=== PATIENT | male | born 1945 | race Caucasian/White ===

== ENCOUNTER 2018-07-10 05:12 | Day surgery (SDC) | payer MEDICARE, OTHER, SELFPAY ==
[2018-07-10 05:39] VITALS: BP 131/70; PULSE 63; RESP 18; TEMP 36.3; O2SAT 100; BMI 21.7
--- NOTE | 2018-07-10 06:30 | COLBX_PTH ---
PATIENT: JODIE AMAYA LOC: [facility] U#:[id number] AGE/SX: 72/M ROOM: RE07/10/[address]: Dr. Karel Morton MD : 1945 BED: DIS: 07/10/2018 SPEC #: [id number] RECD: 07/10/18 09:01 STATUS: RICHARD KATRIN #: [id number] YVETTE: 07/10/18 06:[address]: Karel Morton DEPT: SURGICAL PATHOLOGY RECD BY: Daquan Quintanilla ENTERED: 07/10/18 11:05 SP TYPE: COLON BX CARRIE DR: Dr. Brendan Morton III, MD Tissues: COLON BIOPSY Procedures: Surgery Specimen Level IV HEADER OPERATION: Colonoscopy (MAC) PRE-OP DIAGNOSIS: Diarrhea TISSUE SUBMITTED: Random colon biopsies MICROSCOPIC DIAGNOSIS Random biopsy: No pathologic diagnosis. AM:patricio 07/11/18 MICROSCOPIC DESCRIPTION Slides are reviewed. GROSS DESCRIPTION Received is one container labeled with the patient name and designated random colon biopsy. The specimen consists of multiple irregular fragments of light mejia soft tissue that in aggregate measure 1.5 x 0.8 x 0.1 cm. The specimen is totally submitted in one cassette. / SJ:sp 07/10/18 TC: 5 CPT: 17384
[2018-07-10 06:52] VITALS: BP 128/74; BP 131/70; PULSE 61; RESP 16; TEMP 36.1; O2SAT 97
--- NOTE | 2018-07-10 06:55 | OP.ENDO_ITS ---
Patient Name: Arnaud Cardenas Procedure Date: 07/10/2018 6:08 AM Date of : 1945 Age: 72 Procedure: Colonoscopy Indications: Screening for colorectal malignant neoplasm Providers: Karel Morton MD Referring MD: Karel Morton MD Medicines: See the Anesthesia note for documentation of the administered medications Patient Profile: Last Colonoscopy: September 2007. Complications: No immediate complications. Procedure: Pre-Anesthesia Assessment: - Prior to the procedure, a History and Physical was performed, and patient medications and allergies were reviewed. The patient's tolerance of previous anesthesia was also reviewed. The risks and benefits of the procedure and the sedation options and risks were discussed with the patient. All questions were answered, and informed consent was obtained. Prior Anticoagulants: The patient has taken Coumadin (warfarin), last dose was day of procedure. ASA Grade Assessment: II - A patient with mild systemic disease. After reviewing the risks and benefits, the patient was deemed in satisfactory condition to undergo the procedure. After I obtained informed consent, the scope was passed under direct vision. Throughout the procedure, the patient's blood pressure, pulse, and oxygen saturations were monitored continuously. The colonoscope was introduced through the anus and advanced to the cecum, identified by appendiceal orifice and ileocecal valve. The colonoscopy was performed without difficulty. The patient tolerated the procedure well. The quality of the bowel preparation was good. The ileocecal valve was photographed. Scope In: 6:34:09 AM Scope Withdrawal Time 0 hours 7 minutes 31 seconds Scope Out: 6:49:14 AM Total Procedure Duration Time 0 hours 15 minutes 5 seconds Findings: Lax anal tone Multiple large-mouthed diverticula were found in the entire colon. Biopsies for histology were taken with a cold forceps from the entire colon for evaluation of microscopic colitis. The exam was otherwise without abnormality. Impression: - Diverticulosis in the entire examined colon. Biopsied. - The examination was otherwise normal. Recommendation: - Discharge patient to home. - Resume previous diet. - Continue present medications. - Telephone my office for pathology results in 1 week. - Repeat colonoscopy in 10 years for screening purposes. Procedure Code(s): --- Professional --- 34519, Colonoscopy, flexible; with biopsy, single or multiple Diagnosis Code(s): --- Professional --- Z12.11, Encounter for screening for malignant neoplasm of colon K57.30, Diverticulosis of large intestine without perforation or abscess without bleeding CPT copyright 2017 [employer]. All rights reserved. The codes documented in this report are preliminary and upon certified coder review may be revised to meet current compliance requirements. Karel Morton MD 07/10/2018 6:54:59 AM This report has been signed electronically. Number of Addenda: 0 Note Initiated On: 07/10/2018 6:08 AM
[2018-07-10 06:57] VITALS: BP 123/67; BP 131/70; PULSE 63; RESP 16; O2SAT 97
[2018-07-10 07:02] VITALS: BP 131/70; BP 133/72; PULSE 60; RESP 18; O2SAT 97
[2018-07-10 07:07] VITALS: BP 121/81; BP 131/70; PULSE 64; RESP 16; O2SAT 99
[2018-07-10 07:24] VITALS: BP 131/70
== END 2018-07-10 07:41 | disposition home or self-care (01) ==
LOC: EN 05:12 → AC 05:15
PROVIDERS: Family Provider Family Medicine; PCP Family Medicine; Referring Provider Surgery; Visit Provider Surgery
PROC: 0DJD8ZZ Inspection of Lower Intestinal Tract, Via Natural or Artificial Opening Endoscopic (ICD-10-PCS; CPT 45378; principal; 2018-07-10 06:25)
DX: Z12.11 Encounter for screening for malignant neoplasm of colon (principal); K57.30 Diverticulosis of large intestine without perforation or abscess without bleeding; R19.7 Diarrhea, unspecified; I10 Essential (primary) hypertension; E11.9 Type 2 diabetes mellitus without complications; F03.90 Unspecified dementia, unspecified severity, without behavioral disturbance, psychotic disturbance, mood disturbance, and anxiety; Z79.84 Long term (current) use of oral hypoglycemic drugs; Z79.01 Long term (current) use of anticoagulants; Z79.899 Other long term (current) drug therapy; Z87.891 Personal history of nicotine dependence
CPT/HCPCS: 45380; 88305; J7120

== ENCOUNTER 2019-06-01 11:31 | Emergency (ER) | payer MEDICARE, OTHER, SELFPAY ==
[2019-06-01 11:32] VITALS: BP 121/70; PULSE 74; RESP 18; TEMP 36.6; O2SAT 100; BMI 22.6
--- NOTE | 2019-06-01 11:59 | CT_ITS ---
STUDY: CT ABDOMEN AND PELVIS WITHOUT CONTRAST REASON FOR EXAM: Male, 73 years old. Left lower quadrant pain RADIATION DOSAGE (If Supplied By Facility): CTDIvol = ( 7.04 ) mGy, DLP = ( 380.13 ) mGycm TECHNIQUE: Transaxial images were obtained from the dome of the diaphragm to the symphysis pubis without oral contrast, and without intravenous contrast. Sagittal and coronal images were reconstructed. Individualized dose optimization techniques were used for this CT. COMPARISON: 10/29/2014 FINDINGS: The visualized lung bases are unremarkable. The visualized portions of the heart are within normal limits. Normal liver. Normal gallbladder and extrahepatic biliary system. Normal spleen. Normal pancreas. Normal bilateral adrenal glands. There are simple cysts of the left kidney, grossly similar. No hydronephrosis or urinary tract calcifications. Normal visualized stomach. There are surgical clips adjacent to the GE junction. Normal small intestine. There is diverticulosis, with thickening of the distal descending colon wall, and pericolonic inflammation changes consistent with acute diverticulitis. There is non-visualization of the appendix. There is diffuse atherosclerotic calcification of the abdominal aorta, without a demonstrated aneurysm. Normal inferior vena cava. Normal retroperitoneum. Poorly evaluated, nondistended urinary bladder. There are prostatic calcifications. Normal abdominal wall. No lytic or sclerotic bone lesions. CT/Abdomen/Pelvis without Cont IMPRESSION: Distal descending colon acute diverticulitis without abscess or pneumoperitoneum. Electronically Signed: Justin Alfonso MD (Brooks) at 12:43 EDT , Service support ,
--- NOTE | 2019-06-01 11:59 | ED.DCSUM_ITS ---
- ER Visit Summary Date of Service: 06/01/19 Chief Complaint: Abdominal pain History of Present Illness: The patient is a 73-year-old male presents for evaluation of abdominal pain. Patient states symptoms began yesterday and are worse with walking and bending over. He describes it more as a dull ache. He notes a normal bowel movement this morning. No nausea or vomiting. He ate well this morning. No fevers. He has a history of diverticulosis is seen on a screening colonoscopy. He denies any blood in the stool. Physical Examination: Afebrile vital signs are stable Gen: Well-nourished well-developed Head: Normocephalic atraumatic Eyes: Perrl EOMI ENT: TMs clear no rhinorrhea moist mucous membranes Neck: Supple no lymphadenopathy no JVD nontender CVS: Regular rate rhythm no murmurs normal S1-S2 Respiratory: No distress clear to auscultation bilaterally chest nontender Abdomen: Soft tender palpation in the left lower quadrant with guarding. Nondistended normal bowel sounds no masses Back: Nontender Extremity: Nontender no edema Skin: Normal color no rash Neuro: alert orientated ?3 CN II-XII intact normal strength sensation Psych: Normal affect normal mood Test Results: CBC BMP and urinalysis were obtained. White count noted to be 11.7. A noncontrasted CT was obtained as he is on metformin and I am looking for diverticulitis did not feel contrast was necessarily needed. CT does demonstrate uncomplicated descending diverticulitis. Emergency Department Course and Treatment: Patient will be started on Cipro and Flagyl. He is asked for something for pain and I will write for some oxycodone. His potential side effects such as constipation and confusion but not limited to those. Return instructions given and he notes understanding. Impression: 1. Acute descending diverticulitis This note was generated with [employer] dictation software. It may contain incorrect words, spelling, and punctuation that were not noted in review of the chart prior to signing ED Disposition - Plan for ED Patient: Disposition: Home or Assisted Living Instructions: Understanding Diverticulosis and Diverticulitis Prescriptions: Ciprofloxacin [Cipro] 500 mg PO BID #14 tab [facility] metroNIDAZOLE [Flagyl] 500 mg PO Q8H #21 tab Transmission Status[facility] Oxycodone [Oxyir] 5 mg PO Q6H PRN PRN 3 Days #10 tablet PRN Reason: Pain Score 1-06/06 Transmission Status: Sent to [facility] Referrals: Brendan Morton III, MD [Primary Care Provider] - Keep Zackary appointment
[2019-06-01 12:05] LABS: White Blood Cells 0 SEEN /hpf (0-5)
[2019-06-01 12:07] LABS: Color, Urine Yellow (Yellow); Glucose, Dipstick 100 mg/dl (Normal); Ketone-Dipstick 5 mg/dl (Negative); Leukocyte Esterase-Dipstick Negative /ul (Negative); Nitrite-Dipstick Negative (Negative); Occult Blood-Urine 10 /ul (Negative); Protein-Dipstick 15 mg/dl (Negative); Specific Gravity, Urine 1.025 (1.002-1.030); Urine Bilirubin Dipstick Negative (Negative); Urine Clarity Sl. Cloudy (Clear); Urine Urobilinogen Normal (Normal)
[2019-06-01 12:13] LABS: Red Blood Cells-Urine 0-5 SEEN /hpf (0-5)
[2019-06-01 12:14] LABS: Bacteria RARE /hpf (None Seen); Mucous, Urine 2+ /hpf (<or=2+); Squamous Epithelial Cells - UA 0-5 SEEN /hpf (0-5)
[2019-06-01 12:34] LABS: Anion Gap 7 (5-15); BUN 23 mg/dL (7-18); BUN/Creat Ratio 21.7 RATIO (10-20); Calcium,Total 9.4 mg/dL (8.5-10.1); Chloride 104 mmol/L (98-107); Creatinine, Serum 1.06 mg/dL (0.70-1.30); EST Glomerular Filtration Rate 73 mL/min (>60); Est Glom Filt Rate - Afr Amer 88 mL/min (>60); Estimated Creatinine Clearance 63.86 ml/min; Glucose 109 mg/dL (74-106); Potassium 4.8 mmol/L (3.5-5.1); Sodium Level 140 mmol/L (136-145)
[2019-06-01 12:43] LABS: Absolute Lymphocyte Count 1.32 X10^3/uL (0.83-4.51); Absolute Neutrophil Count 8.5 X10^3/uL (2.0-7.7); Basophil# 0.06 X10^3/uL; Basophil% 0.5 % (0-1); Differential Indicated SCAN CRITERIA MET; Eosinophil# 0.18 X10^3/uL; Eosinophils% 1.5 % (0-5); Hematocrit 41.2 % (40-54); Hemoglobin 13.5 g/dL (13.0-16.5); Lymphocyte # 1.32 X10^3/ul (4.0); Lymphocyte % 11.3 % (19-41); Mean Corp Hgb Conc 32.8 g/dL (32-36); Mean Corpuscular Hgb 31.5 pg (27.0-32.0); Mean Corpuscular Volume 96.3 fL (80-94); Mean Platelet Vol. 11.4 fl (6.2-12.0); Monocyte# 1.52 X10^3/uL; NRBC Flagged by Analyzer 0 % (0-5); Neutrophil # 8.53 X10^3/uL (2.7-7.7); Neutrophil % 73.3 % (47-70); POSITIVE DIFFERENTIAL YES; Platelet Count 192 K/mm3 (150-450); RBC Distribution Width CV 12.8 % (11.6-14.6); RBC Distribution Width SD 45.1 fl (35.1-43.9); Red Blood Count 4.28 M/mm3 (4.6-6.2); White Blood Count 11.7 K/mm3 (4.4-11.0)
[2019-06-03 12:05] LABS: Pathologist Review Reviewed
== END 2019-06-01 13:14 | disposition home or self-care (01) ==
PROVIDERS: Emergency Provider Emergency Medicine; Family Provider Family Medicine; PCP Family Medicine
DX: K57.32 Diverticulitis of large intestine without perforation or abscess without bleeding (principal); I10 Essential (primary) hypertension; E11.9 Type 2 diabetes mellitus without complications; F03.90 Unspecified dementia, unspecified severity, without behavioral disturbance, psychotic disturbance, mood disturbance, and anxiety; Z79.84 Long term (current) use of oral hypoglycemic drugs; Z79.899 Other long term (current) drug therapy; Z87.891 Personal history of nicotine dependence
CPT/HCPCS: 74176; 80048; 81001; 85025; 99284; A4216

== ENCOUNTER 2019-08-26 09:47 | Inpatient (IN) | payer MEDICARE, OTHER, SELFPAY ==
[2019-08-26 09:47] VITALS: BP 164/87; PULSE 121; RESP 24; TEMP 36.9; O2SAT 97; BMI 23.3
--- NOTE | 2019-08-26 10:35 | ED.DCSUM_ITS ---
History of Present Illness Chief Complaint: Weakness Informant: Patient, Family Onset: Today Current Severity: Mild Maximum Severity: Mild Narrative: Patient presents with generalized weakness that started this morning. Family reports had a good day yesterday. He felt weak and shaky today and EMS was called. While riding in the squad patient did have one episode of emesis. He denies nausea currently. He denies chest or abdominal pain. - Past Medical History (1) Hypertension Status: Chronic (2) Diabetes mellitus type 2 in nonobese Status: Chronic Past Medical History - Allergies and Home Meds Allergies/Adverse Reactions: Allergies codeine Adverse Reaction (Verified 08/26/19 09:50) Nausea/Vom/Diarrhea Primary Care Physician: Brendan Morton III, MD [Primary Care Provider] - Prior records reviewed: Yes Surgical History: - - Surgeries for peptic ulcer disease Smoking Status: Former smoker - Family History Maternal Family History: Family History (Last Updated 06/26/18 @ 15:34 by Leah Iglesias) Father Hypertension Heart disease Family History: Reports: No pertinent history Review of Systems General: Denies: Chills, Fever Eyes: Denies: Visual changes - bilaterally ENT: Denies: Bilateral ear pain Cardiovascular: Denies: Chest pain, Palpitations Respiratory: Denies: Dyspnea, Cough Gastrointestinal: Reports: Nausea, Vomiting. Denies: Abdominal pain, Diarrhea Genitourinary: Denies: Dysuria Neurological: Reports: Weakness - Generalized weakness. Denies: Headache Physical Exam Vital Signs/Narrative: Vital Signs Temp Pulse Resp BP Pulse Ox 08/26/19 09:47 98.5 F 121 H 24 H 164/87 H 97 Inital Vital Signs reviewed: Yes General: Well nourished, Well developed Head: Normocephalic ENT: Dry mucous membranes Neck: Supple Cardiovascular: Regular rhythm, Tachycardia Respiratory: No distress, CTA bilaterally Abdomen: Soft, Nontender Extremities: Nontender Skin: Pallor Neurological: Alert, Oriented x3 Psychological: Normal affect Diagnostic/Tx/Re-eval Laboratory Results 08/26/19 08/26/19 08/26/19 10:05 10:05 11:50 WBC 9.0 RBC 4.17 L Hgb 13.2 Hct 40.5 MCV 97.1 H MCH 31.7 MCHC 32.6 RDW Std Deviation 44.5 H RDW Coeff of Christie 12.5 Plt Count 177 MPV 11.1 Immature Gran % (Auto) 0.400 Neut % (Auto) 89.2 H Lymph % (Auto) 6.4 L Gilchrist % (Auto) 3.4 Eos % (Auto) 0.4 Baso % (Auto) 0.2 Absolute Neuts (auto) 8.0 H Absolute Lymphs (auto) 0.57 L Nucleated RBC % 0 Differential Comment COMMENT Sodium 139 Potassium 4.5 Chloride 103 Carbon Dioxide 28.0 Anion Gap 8 BUN 24 H Creatinine 1.40 H Estim Creat Clear Calc 49.25 Est GFR (MDRD) Af Amer 64 Est GFR (MDRD) Non-Af 53 L BUN/Creatinine Ratio 17.1 Glucose 171 H Calcium 10.1 Troponin I < 0.015 Urine Color Yellow Urine Clarity Clear Urine pH 7.0 Ur Specific Dudley 1.010 Urine Protein 15 H Urine Glucose (UA) 100 H Urine Ketones 50 H Urine Occult Blood 10 H Urine Nitrite Negative Urine Bilirubin Negative Urine Urobilinogen Normal Ur Leukocyte Esterase Negative Urine RBC 0-5 SEEN Urine WBC 5-10 SEEN Ur Squamous Epith Cells 0-5 SEEN Urine Bacteria 1+ Urine Mucus 0 SEEN - Medical Decision Making Patient is given IV fluids here. Urine shows some white cells with 1+ bacteria, but no overwhelming signs of significant infection. Urine will be sent for culture. Patient does have acute elevation in his creatinine and he does appear dehydrated. Patient was given IV fluids here. When I went back to talk with patient and family about getting him IV fluids here, increasing fluids at home, and following up for repeat labs patient's family states that he was very weak and hardly able to get around at home. They do not feel comfortable taking him home. I will speak with hospitalist regarding admission. ED Disposition - Plan for ED Patient: Disposition: Acute Care Hospital [facility] Diagnosis: Generalized weakness, Acute renal insufficiency Referrals: Brendan Morton III, MD [Primary Care Provider] -
--- NOTE | 2019-08-26 10:35 | EKG12_ITS ---
Test Reason : WEAKNESS Blood Pressure : / mmHG Vent. Rate : 105 BPM Atrial Rate : 105 BPM P-R Int : 160 ms QRS Dur : 080 ms QT Int : 340 ms P-R-T Axes : 049 042 035 degrees QTc Int : 449 ms Sinus tachycardia Low voltage QRS Nonspecific T wave abnormality Abnormal ECG Confirmed by ANTONIO RAMIREZ, ALIZA ([id number]), visual effects editor TAMMY JENKINS ([id number]) on 08/29/2019 11:12:57 AM Referred By: Ella Sorto Confirmed By:ALIZA ALVAREZ MD
[2019-08-26 10:45] LABS: Absolute Lymphocyte Count 0.57 X10^3/uL (0.83-4.51); Basophil# 0.02 X10^3/uL; Basophil% 0.2 % (0-1); Eosinophil# 0.04 X10^3/uL; Eosinophils% 0.4 % (0-5); Hematocrit 40.5 % (40-54); Hemoglobin 13.2 g/dL (13.0-16.5); Lymphocyte # 0.57 X10^3/ul (4.0); Lymphocyte % 6.4 % (19-41); Mean Corp Hgb Conc 32.6 g/dL (32-36); Mean Corpuscular Hgb 31.7 pg (27.0-32.0); Mean Corpuscular Volume 97.1 fL (80-94); Mean Platelet Vol. 11.1 fl (6.2-12.0); Monocyte% 3.4 % (0-10); NRBC Flagged by Analyzer 0 % (0-5); Neutrophil # 7.98 X10^3/uL (2.7-7.7); Neutrophil % 89.2 % (47-70); POSITIVE DIFFERENTIAL YES; Platelet Count 177 K/mm3 (150-450); RBC Distribution Width CV 12.5 % (11.6-14.6); RBC Distribution Width SD 44.5 fl (35.1-43.9); Red Blood Count 4.17 M/mm3 (4.6-6.2)
[2019-08-26 10:50] LABS: Differential Indicated SCAN CRITERIA MET
[2019-08-26 11:00] LABS: Anion Gap 8 (5-15); BUN 24 mg/dL (7-18); BUN/Creat Ratio 17.1 RATIO (10-20); Calcium,Total 10.1 mg/dL (8.5-10.1); Chloride 103 mmol/L (98-107); EST Glomerular Filtration Rate 53 mL/min (>60); Est Glom Filt Rate - Afr Amer 64 mL/min (>60); Estimated Creatinine Clearance 49.25 ml/min; Glucose 171 mg/dL (74-106); Potassium 4.5 mmol/L (3.5-5.1); Sodium Level 139 mmol/L (136-145)
[2019-08-26 11:53] VITALS: BP 112/69; PULSE 90; RESP 18; O2SAT 94
[2019-08-26 11:58] LABS: Mucous, Urine 0 SEEN /hpf (<or=2+)
[2019-08-26 12:00] LABS: Color, Urine Yellow (Yellow); Glucose, Dipstick 100 mg/dl (Normal); Ketone-Dipstick 50 mg/dl (Negative); Leukocyte Esterase-Dipstick Negative /ul (Negative); Nitrite-Dipstick Negative (Negative); Occult Blood-Urine 10 /ul (Negative); Protein-Dipstick 15 mg/dl (Negative); Urine Bilirubin Dipstick Negative (Negative); Urine Clarity Clear (Clear); Urine Urobilinogen Normal (Normal)
[2019-08-26 12:10] LABS: Red Blood Cells-Urine 0-5 SEEN /hpf (0-5); Squamous Epithelial Cells - UA 0-5 SEEN /hpf (0-5)
[2019-08-26 12:11] LABS: Bacteria 1+ /hpf (None Seen); White Blood Cells 5-10 SEEN /hpf (0-5)
[2019-08-26 12:59] VITALS: BP 114/58; PULSE 89; RESP 14
[2019-08-26] MEDS: 0.9% Normal Saline 1,000 ML 150 ML IV (12:59)
--- NOTE | 2019-08-26 13:08 | PCM.HP.STD ---
Problem List (1) UTI (urinary tract infection) Status: Acute Qualifiers: Urinary tract infection type: site unspecified (2) PETER (acute kidney injury) Status: Acute (3) HLD (hyperlipidemia) Status: Chronic Qualifiers: Hyperlipidemia type: unspecified Qualified Code(s): E78.5 - Hyperlipidemia, unspecified (4) Diabetes mellitus, type II Status: Chronic Qualifiers: Diabetes mellitus retirement insulin use: without retirement use Diabetes mellitus complication status: with other specified complication Qualified Code(s): E11.69 - Type 2 diabetes mellitus with other specified complication (5) Parkinsons disease Status: Chronic (6) Parkinson's disease dementia Status: Chronic Qualifiers: Dementia behavioral disturbance: without behavioral disturbance Qualified Code(s): G20 - Parkinson's disease; F02.80 - Dementia in other diseases classified elsewhere without behavioral disturbance (7) Hypertension Status: Chronic Qualifiers: Hypertension type: essential hypertension Qualified Code(s): I10 - Essential (primary) hypertension History of Present Illness Date of Admission: 08/26/19 Chief Complaint: Weakness, N/V The patient is a 73 y/o M w/ PMHx: Diabetes mellitus type II, HTN, HLD, Parkinson's Disease, Anxiety and Depression who presents to the [facility] ED on 08/26/19 with history of feeling baseline normal the day prior but notably onset on day of ED presentation inclusive of fatigue, malaise, nausea with emesis x 1 with EMS, increased weakness, debility, unable to even get up off the couch. Patient denied any recent abdominal pain or discomfort. In the ED patient notes that he has had decreased appetite over the last 2 to 3 days but no nausea or emesis at that time. He denies any recent dysuria, frequency or suprapubic discomfort. Work-up in the ED included T 98.5, heart rate originally 121 with improvement 89, BP initially 164/87 with improvement to 114/58, respiratory rate 24 with improvement 14, 97% on room air, CBC with WBC 9, hemoglobin 13.2, platelet 177 with left shift, BMP with BUN/creatinine 24/1.40 with baseline creatinine 0.8-1, glucose 171, troponin less than 0.015, urinalysis with specific gravity 1.010, protein 15, glucose 100, ketones 50, occult blood 10, WBC 5-10 with 1+ bacteria. In the ED patient administered normal saline. Past Medical History Past Medical History (Chronic Problems): Chronic Problems HLD (hyperlipidemia) (Chronic) Diabetes mellitus, type II (Chronic) Parkinsons disease (Chronic) Parkinson's disease dementia (Chronic) Diabetes mellitus type 2 in nonobese (Chronic) Hypertension (Chronic) Medical History: Medical History Diarrhea (Acute) R19.7 Diabetes mellitus type 2 in nonobese (Chronic) E11.9 Hypertension (Chronic) I10 Allergies codeine Adverse Reaction (Verified 08/26/19 09:50) Nausea/Vom/Diarrhea Home Medications: Ambulatory Orders Medication Instructions Recorded metFORMIN (XR) [Glucophage Xr] 1,000 mg PO BID 10/29/14 donepezil 10 mg tablet 10 mg PO QHS 06/26/18 escitalopram oxalate 20 mg tablet 20 mg PO DAILY 06/26/18 Lisinopril 2.5 mg PO DAILY 06/01/19 Multivit-Mins/Iron/Folic/Lycop 1 ea PO DAILY 06/01/19 [Centrum Men's Tablet] Atorvastatin Calcium 10 mg PO QHS 08/26/19 Carbidopa/Levodopa [Carbidopa-Levo 1 tab PO BID 08/26/19 ER 25-100 Tab] Cholecalciferol (VIT D3) [Vitamin 1,000 unit PO DAILY 08/26/19 D] Surgical History: Surgical History (Last Updated 06/26/18 @ 15:34 by Leah Iglesias) s/p stomach surgery Surgical History: - - Surgeries for peptic ulcer disease. Psychiatric History: Anxiety, Depression Lives: Spouse/ Significant Other Smoking Status: Former smoker - Quit tobacco usage, specifically cigars approximately 10 to 15 years prior. Tobacco Use: Non-smoker Alcohol: None Drugs: None - *Family History Maternal Family History: Family History (Last Updated 06/26/18 @ 15:34 by Leah Iglesias) Father Hypertension Heart disease History Items: Dementia Paternal Family History: Family History (Last Updated 06/26/18 @ 15:34 by Leah Iglesias) Father Hypertension Heart disease History Items: Heart Disease, Hypertension Review of Systems Constitutional: Reports: Anorexia, Malaise, Weakness, Fatigue. Denies: Chills, Fever, Weight Change HEENT: Denies: Head Aches, Sinus Congestion, Sinus Drainage Cardiovascular: Denies: Chest Pain, Palpitations Respiratory: Denies: Cough, Shortness of breath at rest, Sputum production Gastrointestinal: Reports: Nausea, Vomiting. Denies: Abdominal Pain Genitourinary: Denies: Dysuria Musculoskeletal: Reports: Joint Pain. Denies: Joint Tenderness Skin: Denies: Rash, Wounds Neurological: Reports: Balance problems, Confusion. Denies: Focal weakness, Numbness, Tingling Psychiatric: Reports: Anxiety, Depression. Denies: Homicidal Ideations, Suicidal Ideations Hematologic/ Lymphatic: Denies: Easy Bruising, Easy Bleeding VTE Information - Inpt Only VTE Present on Admission: No VTE Mechan Device Prophylaxis: SCD's VTE Pharm Prophylaxis ordered?: Yes Patient Problems: Active and Suspected Problems Generalized weakness (Acute) Acute renal insufficiency (Acute) UTI (urinary tract infection) (Acute) PETER (acute kidney injury) (Acute) Subjective: Seated upright in ED bed, fatigued appearance, no acute distress, notes nausea has improved since initial ED presentation. Objective: Physical Examination: General: awake, alert, oriented x [address], year, recent events, does have underlying history of Parkinson's disease with dementia, remains cooperative, seated upright in bed in no apparent distress. Skin: Pale color, turgor, no icterus, cyanosis. HEENT: AT/NC, EOMI, PERRLA, dry MM, no carotid bruits or JVD noted. Lungs: CTA bilaterally, moderate effort, moderate decrease BL bases, no rales, ronchi or wheezing. Heart: Regular rate and rhythm; no gallop, rub audible. Abdomen: soft, NTTP, ND, mildly hyperactive BS, no HSM. Extremities: no cyanosis, clubbing, or edema. Neurological: patient awake, alert, oriented as noted; cognitive function appears baseline intact, does have underlying dementia; pupils equally reactive to light and accomodation; cranial nerves II-XII grossly normal, moving all 4 extremities, no focal deficits, strength severely global decrease secondary to acute presentation. Psychiatric: affect appears flat, fatigued, no acute evidence of depressive or anxiety feelings. - Physical Exam Vitals/I&O's: Vital Signs Temp Pulse Resp BP Pulse Ox 98.5 F 89 14 114/58 L 94 08/26/19 09:47 08/26/19 12:59 08/26/19 12:59 08/26/19 12:59 08/26/19 11:53 Oxygen Delivery Method Room Air Weight: 162 lb 11.218 oz Body Mass Index (BMI) 23.3 Intake and Output for Last 24 Hours 08/24/19 08/25/19 08/26/19 23:59 23:59 23:59 Intake Total 500 / 500 Balance 500 / 500 Laboratory Results 08/26/19 10:05: WBC 9.0, RBC 4.17 L, Hgb 13.2, Hct 40.5, MCV 97.1 H, MCH 31.7, MCHC 32.6, RDW Std Deviation 44.5 H, RDW Coeff of Christie 12.5, Plt Count 177, MPV 11.1, Immature Gran % (Auto) 0.400, Neut % (Auto) 89.2 H, Lymph % (Auto) 6.4 L, Flagler % (Auto) 3.4, Eos % (Auto) 0.4, Baso % (Auto) 0.2, Absolute Neuts (auto) 8.0 H, Absolute Lymphs (auto) 0.57 L, Nucleated RBC % 0, Differential Comment COMMENT 08/26/19 10:05: Sodium 139, Potassium 4.5, Chloride 103, Carbon Dioxide 28.0, Anion Gap 8, BUN 24 H, Creatinine 1.40 H, Estim Creat Clear Calc 49.25, Est GFR (MDRD) Af Amer 64, Est GFR (MDRD) Non-Af 53 L, BUN/Creatinine Ratio 17.1, Glucose 171 H, Calcium 10.1, Troponin I < 0.015 08/26/19 11:50: Urine Color Yellow, Urine Clarity Clear, Urine pH 7.0, Ur Specific Barton 1.010, Urine Protein 15 H, Urine Glucose (UA) 100 H, Urine Ketones 50 H, Urine Occult Blood 10 H, Urine Nitrite Negative, Urine Bilirubin Negative, Urine Urobilinogen Normal, Ur Leukocyte Esterase Negative, Urine RBC 0-5 SEEN, Urine WBC 5-10 SEEN, Ur Squamous Epith Cells 0-5 SEEN, Urine Bacteria 1+, Urine Mucus 0 SEEN Current Medications Sodium Chloride () 1,000 mls @ 150 mls/hr IV .[id number] JANY Last Admin: 08/26/19 12:59 Dose: 150 mls/hr Documented by: Assessment/Plan All Active Problems Generalized weakness (Acute) Acute renal insufficiency (Acute) UTI (urinary tract infection) (Acute) PETER (acute kidney injury) (Acute) Diarrhea (Acute) The patient is a 73 y/o M w/ PMHx: Diabetes mellitus type II, HTN, HLD, Parkinson's Disease, Anxiety and Depression, GERD w/ Hx Peptic Ulcer who presents to the [facility] ED on 08/26/19 with history of feeling baseline normal the day prior but notably onset on day of ED presentation inclusive of fatigue, malaise, nausea with emesis x 1 with EMS, increased weakness, debility, unable to even get up off the couch. 1. ? Acute Urinary Tract Infection versus Acute Viral Syndrome: Will admit to [facility] upon ED evaluation remarkable, pending UCx, continue IVFs, monitor I/Os, continue IV Rocephin w/ transition as able pending sensitivities and speciation. PT/OT/CM consulted for discharge planning. Will obtain respiratory viral panel as patient presentation may be secondary to acute viral illness as noted and if urine unremarkable will de-escalate off therapy. 2. Acute kidney injury: Secondary to acute presentation as noted above #1 with likely poor intake. Admission BUN/Cr 24/1.40, prior baseline creatinine noted to be 0.8 to maximum 1.0. Will hydrate, hold nephrotoxic medications and repeat chemistry in AM. 3. Anxiety and depression: Continue patient home escitalopram regimen. 4. Diabetes mellitus type II: Hold oral home regimen, clears to ADA diet as tolerated, accu checks w/ ISS. 5. Hypertension: Holding lisinopril given elevated creatinine above baseline, resume once clinically appropriate in interim PRN hydralazine. 6. Hyperlipidemia: Continue home statin regimen. 7. Parkinson's disease with dementia, unclear behavioral disturbance history: We will continue patient home Sinemet, donepezil regimen. Fall precautions, PT/OT/case management consultation for discharge planning. 8. DVT prophylaxis: SCDs, Lovenox. 9. CODE status: Patient's present, notes daughter healthcare power of civil litigation attorney, living will in place. Discussed CODE status at length including difference between FULL code, DNR-CCA and DNR-CC status. Following discussions about the differences in these status, requested full CODE STATUS. Advanced Care Planning Face to Face Time: 16 minutes. Code Visit Inpatient E&M: 53927 Init Hosp L3 Procedures: 62415 Advncd Care Plan 30 Min
--- NOTE | 2019-08-26 15:00 | CASEMGMT ---
RAJINDER SWENSON assessment: Face to Face with patient for initial transition planning/care coordination assessment. RAJINDER SWENSON introduced self and role at [facility], pt voices understanding and consents to assessment at this time. Pt is sitting up in bed in no distress at this time. Pt is A/Ox4 at this time and answers all questions appropriately at this time. Pt's is at bedside and answers most questions for pt at this time. Care providers, pharmacy, and demographics verified/updated at this time. Presentation: Pt c/o increased weakness today, pt with emesis in squad Admitting dx: UTI, PETER PCP: Selene PEREZ Specialists: Deshaun Bueno, neuro at [facility] Preferred Pharmacy: [facility] Insurance: [facility] A/B, MMO Prescription Benefit: [employer] Living Will/HPOA: Pt has LW/HPOA and they are on file at [facility] at this time. Pt states that his niece, Meg Barraza, is HPOA and her contact info is placed on chart at this time. LNOK: Belem Cardenas, ; Meg Barraza, niece/HPOA Living Arrangements: Pt states lives with in 2 story duplex and states no concerns at home at this time. Pt states is independent with ADL's. Transportation: Pt states drives and states no transportation concerns at this time. DME/HHC: Pt states has the following DME: cane and grab bars. Pt states no need for any further DME at this time. Pt states no hx of HHC or SNF in the past. Pt states no concerns with going home at time of discharge. Pt states is retired. Pt states does not smoke and rarely drinks ETOH. Pt states no further concerns/needs at this time. CM to follow for any further discharge planning/needs. Advised pt to ask for CM if any further questions/concerns/needs arise, voices understanding. Pt Goal: Home Plan: [place] RAJINDER SWENSON
[2019-08-26 15:08] VITALS: BMI 21.9
[2019-08-26 15:11] VITALS: BP 94/49; PULSE 78; RESP 18; TEMP 36.9; O2SAT 97
[2019-08-26 15:15] VITALS: BMI 22.0
[2019-08-26] MEDS: 0.9% Normal Saline 1,000 ML 100 ML IV (15:39)
[2019-08-26] MEDS: Ceftriaxone 1 GM/50 ML BAG IV (16:12)
[2019-08-26] MEDS: Carbidopa/Levodopa 25/100 Tablet PO (16:13)
[2019-08-26] MEDS: Glucerna Shake 120 ML LIQUID PO ×2 (16:13→21:56)
[2019-08-26 16:20] VITALS: O2SAT 96
[2019-08-26 16:21] LABS: Bedside Glucose 115 mg/dL (70-110)
--- NOTE | 2019-08-26 16:26 | CHAPLAIN ---
met patient and fulfilled his request to contact [facility] of his admission to hospital
[2019-08-26 21:10] VITALS: BP 123/72; PULSE 85; RESP 18; TEMP 36.9; O2SAT 99
[2019-08-26] MEDS: Donepezil HCl 10 MG Tablet PO (21:56)
[2019-08-26] MEDS: Atorvastatin Calcium 10 MG Tablet PO (21:56)
[2019-08-26 22:01] LABS: Bedside Glucose 138 mg/dL (70-110)
[2019-08-27] MEDS: MELATONIN 3 MG TABLET PO (00:24)
[2019-08-27] MEDS: 0.9% Normal Saline 1,000 ML 100 ML IV ×2 (02:18→11:55)
[2019-08-27 02:20] VITALS: BP 106/55; PULSE 80; RESP 18; TEMP 36.7; O2SAT 97
[2019-08-27 06:31] LABS: Bedside Glucose 166 mg/dL (70-110)
[2019-08-27] MEDS: 0.9% Saline Lock 10 ML Syringe IV (06:32)
[2019-08-27] MEDS: Insulin Lispro 100 UNIT/ML INSULN.PEN SC ×4 (06:32→22:39)
[2019-08-27] MEDS: Carbidopa/Levodopa 25/100 Tablet PO ×2 (06:32→16:42)
[2019-08-27 07:36] LABS: Absolute Lymphocyte Count 0.21 X10^3/uL (0.83-4.51); Absolute Neutrophil Count 8.1 X10^3/uL (2.0-7.7); Basophil# 0.01 X10^3/uL; Basophil% 0.1 % (0-1); Hematocrit 33.8 % (40-54); Hemoglobin 11.1 g/dL (13.0-16.5); Lymphocyte # 0.21 X10^3/ul (4.0); Lymphocyte % 2.5 % (19-41); Mean Corp Hgb Conc 32.8 g/dL (32-36); Mean Corpuscular Hgb 31.5 pg (27.0-32.0); Mean Platelet Vol. 10.4 fl (6.2-12.0); Monocyte# 0.21 X10^3/uL; Monocyte% 2.5 % (0-10); NRBC Flagged by Analyzer 0 % (0-5); Neutrophil # 8.08 X10^3/uL (2.7-7.7); Neutrophil % 94.3 % (47-70); POSITIVE DIFFERENTIAL YES; POSITIVE MORPHOLOGY YES; Platelet Count 138 K/mm3 (150-450); RBC Distribution Width CV 12.6 % (11.6-14.6); RBC Distribution Width SD 43.8 fl (35.1-43.9); Red Blood Count 3.52 M/mm3 (4.6-6.2); White Blood Count 8.6 K/mm3 (4.4-11.0)
[2019-08-27 07:42] LABS: Differential Indicated SCAN CRITERIA MET
[2019-08-27 07:57] VITALS: O2SAT 90
[2019-08-27 08:12] LABS: AST(SGOT) 17 U/L (15-37); Alanine Aminotransfer ALT/SGPT 17 U/L (16-61); Albumin, Serum 3.3 g/dL (3.2-5.0); Alkaline Phosphatase 77 U/L (45-117); Anion Gap 7 (5-15); BUN 23 mg/dL (7-18); BUN/Creat Ratio 19.7 RATIO (10-20); Calcium,Total 8.4 mg/dL (8.5-10.1); Chloride 104 mmol/L (98-107); Creatinine, Serum 1.17 mg/dL (0.70-1.30); EST Glomerular Filtration Rate 65 mL/min (>60); Est Glom Filt Rate - Afr Amer 79 mL/min (>60); Estimated Creatinine Clearance 56.02 ml/min; Globulin 3.2 g/dL (2.2-4.2); Glucose 161 mg/dL (74-106); Potassium 3.7 mmol/L (3.5-5.1); Protein, Total 6.5 g/dL (6.4-8.2); Sodium Level 135 mmol/L (136-145)
[2019-08-27 09:26] VITALS: BP 96/53; PULSE 100; RESP 16; TEMP 36.8; O2SAT 92
[2019-08-27] MEDS: Glucerna Shake 120 ML LIQUID PO ×4 (09:27→22:40)
[2019-08-27] MEDS: Escitalopram Oxalate 20 MG Tablet PO (09:28)
[2019-08-27] MEDS: Enoxaparin 40 MG/0.4 ML Syringe SC (10:14)
[2019-08-27 10:55] VITALS: BP 94/51; PULSE 90; RESP 18; TEMP 37.1; O2SAT 96
[2019-08-27 12:00] LABS: Bedside Glucose 208 mg/dL (70-110)
--- NOTE | 2019-08-27 13:45 | CASEMGMT ---
SW met with patient and his . Introduced self and role at [facility]. They said the physician told them the case making machine operator would talk to them about patient going somewhere for rehab. SW told them that is what NAM is wanting to discuss. NAM discussed [facility] 4th floor rehab unit as patient has Parkinson's and may be a good candidate for the rehab unit. SW also gave them a list of local nursing facilities. They wanted to talk about it. SW will check back. Shira TAYLOR MSW
--- NOTE | 2019-08-27 13:56 | CASEMGMT ---
NAM did talk with Aleja in TCU to see what the bed situation is like. Both TCU and Rehab are full right now. NAM spoke with patient and his and they would like Rehab or TCU. NAM explained they are both full right now. NAM explained this could change by . However, they will need to pick a couple of facilities off of the list NAM left in the event TCU or rehab does not work out. NAM will follow up with alexander rooney on . Shira TAYLOR FLIGHT SURVEYOR
--- NOTE | 2019-08-27 15:20 | PN_ITS ---
Patient Problems: Active and Suspected Problems Generalized weakness (Acute) Acute renal insufficiency (Acute) UTI (urinary tract infection) (Acute) PETER (acute kidney injury) (Acute) Reason for Visit: PETER Subjective: Feels well. Still shaking, which he does not do at home. Was diagnosed as Parkinson's Disease by his PCP. Is to see a Parkinson's specialist in the next 1-2 months. Has been on Sinemet the past few months and no change has been noted. Vitals/I&O's: Vital Signs Temp Pulse Resp BP Pulse Ox 37.1 C 90 18 94/51 L 96 08/27/19 10:55 08/27/19 10:55 08/27/19 10:55 08/27/19 10:55 08/27/19 10:55 Oxygen Delivery Method Room Air Weight: 69.4 kg Body Mass Index (BMI) 21.9 Intake and Output for Last 24 Hours 08/25/19 08/26/19 08/27/19 23:59 23:59 23:59 Intake Total 1125 / 1125 2506.67 / 2506.67 Output Total 450 / 450 Balance 1125 / 1025 2056.67 / 2056.67 General: Alert, Cooperative, No apparent distress HEENT: Atraumatic, Normocephalic, - - impaired vertical saccades Oral: Moist Mucosa, No Gingival or Mucosal Lesions/ Ulcerations Neck: No Nodes, Trachea Midline Lungs: Clear to auscultation, Normal air movement, No rhonchi, No wheeze, No rales Cardiovascular: Regular rate, Regular Rhythm, Normal S1, Normal S2, No murmurs Abdomen: Bowel Sounds Present, Soft, Non Tender, Non-Distended, No Hepato- splenomegaly Extremities: No edema, No Calf Tenderness Skin: No rashes, No breakdown Musculoskeletal: No Tenderness to Palpation of Joints or Extremities, No Muscle Wasting Neurological: Sensory exam intact to light touch and pain, - - diffusely shaking intermittently Psych/Mental Status: Normal Affect, Appropriate Microbiology Past 72 Hours 08/26/19 16:20 Mucosa - Nasopharyngeal Respiratory Panel (PCR) - Final Laboratory Results 08/26/19 10:05: Magnesium 2.0 08/26/19 16:11: POC Glucose 115 H 08/26/19 21:54: POC Glucose 138 H 08/27/19 06:27: POC Glucose 166 H 08/27/19 07:10: WBC 8.6, RBC 3.52 L, Hgb 11.1 L, Hct 33.8 L, MCV 96.0 H, MCH 31.5, MCHC 32.8, RDW Std Deviation 43.8, RDW Coeff of Christie 12.6, Plt Count 138 L, MPV 10.4, Immature Gran % (Auto) 0.600, Neut % (Auto) 94.3 H, Lymph % (Auto) 2.5 L, [place] % (Auto) 2.5, Eos % (Auto) 0.0, Baso % (Auto) 0.1, Absolute Neuts (auto) 8.1 H, Absolute Lymphs (auto) 0.21 L, Nucleated RBC % 0 08/27/19 07:10: Sodium 135 L, Potassium 3.7, Chloride 104, Carbon Dioxide 24.0, Anion Gap 7, BUN 23 H, Creatinine 1.17, Estim Creat Clear Calc 56.02, Est GFR (MDRD) Af Amer 79, Est GFR (MDRD) Non-Af 65, BUN/Creatinine Ratio 19.7, Glucose 161 H, Calcium 8.4 L, Total Bilirubin 0.70, AST 17, ALT 17, Alkaline Phosphatase 77, Total Protein 6.5, Albumin 3.3, Globulin 3.2, Albumin/Globulin Ratio 1.0 08/27/19 11:51: POC Glucose 208 H Current Medications Acetaminophen (Tylenol) 650 mg PO Q6H PRN PRN PRN Reason: Non-cardiac pain (-06/06) Al Hydroxide/Mg Hydroxide (Mylanta Ii) 15 - 30 ml PO Q4H PRN PRN PRN Reason: INDIGESTION Albuterol Sulfate (Ventolin Aerosols) 2.5 mg INHALATION Q2H PRN PRN PRN Reason: dyspnea, wheezing Atorvastatin Calcium (Lipitor) 10 mg PO QHS [facility] Last Admin: 08/26/19 21:56 Dose: 10 mg Documented by: Carbidopa/Levodopa (Sinemet) 1 tablet PO BIDAC [facility] Last Admin: 08/27/19 06:32 Dose: 1 tablet Documented by: Dextrose (D50w Syringe) 0 gm IV X1 PRN; Protocol PRN Reason: Hypoglycemia Donepezil HCl (Aricept) 10 mg PO QHS [facility] Last Admin: 08/26/19 21:56 Dose: 10 mg Documented by: Enoxaparin Sodium (Lovenox) 40 mg SC DAILY [facility] Last Admin: 08/27/19 10:14 Dose: 40 mg Documented by: Escitalopram Oxalate (Lexapro) 20 mg PO DAILY [facility] Last Admin: 08/27/19 09:28 Dose: 20 mg Documented by: Glucagon () 1 mg IM .X1 PRN PRN Reason: Hypoglycemia Guaifenesin (Robitussin) 20 ml PO Q4H PRN PRN PRN Reason: COUGH Hydralazine HCl (Apresoline Iv) 10 mg IV Q4H PRN PRN PRN Reason: SBP > 160 Sodium Chloride () 1,000 mls @ 100 mls/hr IV .Q10H [facility] Last Admin: 08/27/19 11:55 Dose: 100 mls/hr Documented by: Insulin Human Lispro (Humalog Kwikpen (Bkc)) 0 unit SC ACHS [facility]; Protocol Last Admin: 08/27/19 11:55 Dose: 2 u Documented by: Magnesium Hydroxide (Milk Of Magnesia) 30 ml PO DAILY PRN PRN Reason: Constipation Melatonin (Melatonin) 3 mg PO QHS PRN PRN PRN Reason: INSOMNIA Last Admin: 08/27/19 00:24 Dose: 3 mg Documented by: Nutritional Formula (Lactose Free) (Glucerna Shake) 120 ml PO 4X/DAY [facility] Last Admin: 08/27/19 14:00 Dose: 120 mls Documented by: Ondansetron HCl (Zofran) 4 mg IV Q8H PRN PRN PRN Reason: NAUSEA/VOMITING Sodium Chloride () 10 - 40 ml IV UD PRN PRN Reason: SALINE FLUSH Last Admin: 08/27/19 06:32 Dose: 10 ml Documented by: Throat Lozenges (Cepacol Sore Throat Lozenge) 1 lozenge MUCOUS MEM Q2H PRN PRN PRN Reason: Sore throat or cough Medical Necessity - Tobacco Use Smoking Status: Former smoker - Quit tobacco usage, specifically cigars approximately 10 to 15 years prior. Tobacco Use: Non-smoker Assessment/Plan All Active Problems Generalized weakness (Acute) Acute renal insufficiency (Acute) UTI (urinary tract infection) (Acute) PETER (acute kidney injury) (Acute) Diarrhea (Acute) 1. PETER * resolved * HLIV and monitor 2. Debility * likely related with unspecified illness in a patient with likely neurodegenerative process * PT OT * may need SNF * patient has 13 steps to he and his 's duplex, told she may wish to look into a one-level house/apartment with only a few steps. As this disease will likely progress. 3. Neurodegenerative disease * NOS * Diagnosed as parkinson's, but no tremor and no appreciable response to Sinemet. 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 * Explained to family at length that diagnosis is clinical and using Sinemet could help confirm or decline the diagnosis of parkinson's * consult speech 4. Dementia: continue donepezil 5. DM2 * continue metformin and SSI 6. VTE proph: LMWH Greater than 35 minutes of which greater than 50% of the time was counseling about neurodegenerative disease, parkinson's with his family. Code Visit Inpatient E&M: 28221 Subs Hosp L3
[2019-08-27 16:33] VITALS: BP 108/58; PULSE 80; RESP 18; TEMP 36.8; O2SAT 95
[2019-08-27 16:51] LABS: Bedside Glucose 175 mg/dL (70-110)
[2019-08-27 22:30] VITALS: BP 127/60; PULSE 76; RESP 18; TEMP 36.9; O2SAT 97
[2019-08-27] MEDS: Donepezil HCl 10 MG Tablet PO (22:39)
[2019-08-27] MEDS: Atorvastatin Calcium 10 MG Tablet PO (22:39)
[2019-08-27 22:51] LABS: Bedside Glucose 159 mg/dL (70-110)
[2019-08-28 03:45] VITALS: BP 109/60; PULSE 72; RESP 18; TEMP 36.5; O2SAT 96
[2019-08-28 06:33] LABS: Absolute Lymphocyte Count 1.19 X10^3/uL (0.83-4.51); Absolute Neutrophil Count 6.3 X10^3/uL (2.0-7.7); Basophil# 0.03 X10^3/uL; Basophil% 0.3 % (0-1); Eosinophil# 0.07 X10^3/uL; Eosinophils% 0.8 % (0-5); Hematocrit 32.3 % (40-54); Hemoglobin 10.5 g/dL (13.0-16.5); Lymphocyte # 1.19 X10^3/ul (4.0); Lymphocyte % 13.5 % (19-41); Mean Corp Hgb Conc 32.5 g/dL (32-36); Mean Corpuscular Hgb 31.3 pg (27.0-32.0); Mean Corpuscular Volume 96.1 fL (80-94); Mean Platelet Vol. 10.2 fl (6.2-12.0); Monocyte# 1.21 X10^3/uL; Monocyte% 13.7 % (0-10); NRBC Flagged by Analyzer 0 % (0-5); Neutrophil # 6.28 X10^3/uL (2.7-7.7); Neutrophil % 71.1 % (47-70); Platelet Count 123 K/mm3 (150-450); RBC Distribution Width CV 12.9 % (11.6-14.6); RBC Distribution Width SD 45.3 fl (35.1-43.9); Red Blood Count 3.36 M/mm3 (4.6-6.2); White Blood Count 8.8 K/mm3 (4.4-11.0)
[2019-08-28] MEDS: Carbidopa/Levodopa 25/100 Tablet PO ×2 (06:40→17:21)
[2019-08-28 06:45] LABS: Bedside Glucose 116 mg/dL (70-110)
[2019-08-28 07:00] LABS: Anion Gap 4 (5-15); BUN 17 mg/dL (7-18); BUN/Creat Ratio 16.7 RATIO (10-20); Calcium,Total 8.5 mg/dL (8.5-10.1); Chloride 111 mmol/L (98-107); Creatinine, Serum 1.02 mg/dL (0.70-1.30); EST Glomerular Filtration Rate 76 mL/min (>60); Est Glom Filt Rate - Afr Amer 92 mL/min (>60); Estimated Creatinine Clearance 64.26 ml/min; Glucose 126 mg/dL (74-106); Sodium Level 140 mmol/L (136-145)
[2019-08-28 07:54] VITALS: O2SAT 92
[2019-08-28 09:45] VITALS: BP 110/65; PULSE 68; RESP 18; TEMP 36.4; O2SAT 97
[2019-08-28] MEDS: Escitalopram Oxalate 20 MG Tablet PO (10:18)
[2019-08-28] MEDS: Enoxaparin 40 MG/0.4 ML Syringe SC (10:19)
[2019-08-28] MEDS: Glucerna Shake 120 ML LIQUID PO ×3 (10:22→17:21)
[2019-08-28 11:30] LABS: Bedside Glucose 203 mg/dL (70-110)
[2019-08-28] MEDS: Insulin Lispro 100 UNIT/ML INSULN.PEN SC ×3 (12:05→21:48)
[2019-08-28 14:00] VITALS: BP 107/61; PULSE 68; RESP 18; TEMP 36.4; O2SAT 97
[2019-08-28 17:00] LABS: Bedside Glucose 177 mg/dL (70-110)
[2019-08-28] MEDS: metFORMIN HCl 1,000 MG Tablet 1000 MG PO (17:34)
--- NOTE | 2019-08-28 17:54 | PCM.PROGNOTE ---
Patient Problems: Active and Suspected Problems Generalized weakness (Acute) Acute renal insufficiency (Acute) UTI (urinary tract infection) (Acute) PETER (acute kidney injury) (Acute) Subjective: Patient was seen and examined today, I talked with his family who were in the room today, patient remains confused and does not really understand why he is in the hospital or what his medical plan of care is. - Physical Exam Vitals/I&O's: Vital Signs Temp Pulse Resp BP Pulse Ox 97.5 F L 68 18 107/61 97 08/28/19 14:00 08/28/19 14:00 08/28/19 14:00 08/28/19 14:00 08/28/19 14:00 Oxygen Delivery Method Room Air Weight: 69.4 kg Body Mass Index (BMI) 21.9 Intake and Output for Last 24 Hours 08/26/19 08/27/19 08/28/19 23:59 23:59 23:59 Intake Total 1125 / 1125 3490.00 / 3490.00 360 / 360 Output Total 450 / 450 400 / 400 Balance 1125 / 1025 3040.00 / 3040.00 -40 / -40 General: Alert, Cooperative, No apparent distress, Well developed HEENT: Atraumatic, PERRLA, EOMI, Normocephalic Oral: Moist Mucosa Neck: Supple, Trachea Midline, Thyroid Normal Size and Texture Lungs: Clear to auscultation, Normal air movement, No rhonchi, No wheeze, No rales Cardiovascular: Regular rate, Regular Rhythm, Normal S1, Normal S2, No murmurs, PMI Normal, No rub noted, No Gallop Abdomen: Bowel Sounds Present, Soft, Non Tender, Non-Distended, No hernias noted Extremities: No clubbing, No cyanosis, No edema, Capillary Refill Less than 3 Seconds Skin: No rashes, No breakdown Musculoskeletal: No Tenderness to Palpation of Joints or Extremities Neurological: Cranial nerves II-XII grossly intact, Neuro grossly intact, Sensory exam intact to light touch and pain Psych/Mental Status: - - Patient is alert but confused Microbiology Past 72 Hours 08/26/19 11:50 Urine Catheter - Catheter Urine Culture - Preliminary Alpha hemolytic organism 08/26/19 16:20 Mucosa - Nasopharyngeal Respiratory Panel (PCR) - Final Laboratory Results 08/27/19 22:36: POC Glucose 159 H 08/28/19 06:20: WBC 8.8, RBC 3.36 L, Hgb 10.5 L, Hct 32.3 L, MCV 96.1 H, MCH 31.3, MCHC 32.5, RDW Std Deviation 45.3 H, RDW Coeff of Christie 12.9, Plt Count 123 L, MPV 10.2, Immature Gran % (Auto) 0.600, Neut % (Auto) 71.1 H, Lymph % (Auto) 13.5 L, [place] % (Auto) 13.7 H, Eos % (Auto) 0.8, Baso % (Auto) 0.3, Absolute Neuts (auto) 6.3, Absolute Lymphs (auto) 1.19, Nucleated RBC % 0 08/28/19 06:20: Sodium 140, Potassium 4.0, Chloride 111 H, Carbon Dioxide 25.0, Anion Gap 4 L, BUN 17, Creatinine 1.02, Estim Creat Clear Calc 64.26, Est GFR (MDRD) Af Amer 92, Est GFR (MDRD) Non-Af 76, BUN/Creatinine Ratio 16.7, Glucose 126 H, Calcium 8.5 08/28/19 06:38: POC Glucose 116 H 08/28/19 11:27: POC Glucose 203 H 08/28/19 16:54: POC Glucose 177 H Current Medications Acetaminophen (Tylenol) 650 mg PO Q6H PRN PRN PRN Reason: Non-cardiac pain () Al Hydroxide/Mg Hydroxide (Mylanta Ii) 15 - 30 ml PO Q4H PRN PRN PRN Reason: INDIGESTION Albuterol Sulfate (Ventolin Aerosols) 2.5 mg INHALATION Q2H PRN PRN PRN Reason: dyspnea, wheezing Atorvastatin Calcium (Lipitor) 10 mg PO QHS [facility] Last Admin: 08/27/19 22:39 Dose: 10 mg Documented by: Carbidopa/Levodopa (Sinemet) 1 tablet PO BIDAC [facility] Last Admin: 08/28/19 17:21 Dose: 1 tablet Documented by: Dextrose (D50w Syringe) 0 gm IV X1 PRN; Protocol PRN Reason: Hypoglycemia Donepezil HCl (Aricept) 10 mg PO QHS [facility] Last Admin: 08/27/19 22:39 Dose: 10 mg Documented by: Enoxaparin Sodium (Lovenox) 40 mg SC DAILY [facility] Last Admin: 08/28/19 10:19 Dose: 40 mg Documented by: Escitalopram Oxalate (Lexapro) 20 mg PO DAILY [facility] Last Admin: 08/28/19 10:18 Dose: 20 mg Documented by: Glucagon () 1 mg IM .X1 PRN PRN Reason: Hypoglycemia Guaifenesin (Robitussin) 20 ml PO Q4H PRN PRN PRN Reason: COUGH Hydralazine HCl (Apresoline Iv) 10 mg IV Q4H PRN PRN PRN Reason: SBP > 160 Insulin Human Lispro (Humalog Kwikpen (Bkc)) 0 unit SC [facility]; Protocol Last Admin: 08/28/19 17:21 Dose: 1 u Documented by: Magnesium Hydroxide (Milk Of Magnesia) 30 ml PO DAILY PRN PRN Reason: Constipation Melatonin (Melatonin) 3 mg PO QHS PRN PRN PRN Reason: INSOMNIA Last Admin: 08/27/19 00:24 Dose: 3 mg Documented by: Metformin HCl (Glucophage) 1,000 mg PO BIDCM [facility] Last Admin: 08/28/19 17:34 Dose: 1,000 mg Documented by: Nutritional Formula (Lactose Free) (Glucerna Shake) 120 ml PO 4X/DAY [facility] Last Admin: 08/28/19 17:21 Dose: 120 mls Documented by: Ondansetron HCl (Zofran) 4 mg IV Q8H PRN PRN PRN Reason: NAUSEA/VOMITING Sodium Chloride () 10 - 40 ml IV UD PRN PRN Reason: SALINE FLUSH Last Admin: 08/27/19 06:32 Dose: 10 ml Documented by: Throat Lozenges (Cepacol Sore Throat Lozenge) 1 lozenge MUCOUS MEM Q2H PRN PRN PRN Reason: Sore throat or cough Medical Necessity - Tobacco Use Smoking Status: Former smoker - Quit tobacco usage, specifically cigars approximately 10 to 15 years prior. Tobacco Use: Non-smoker Assessment/Plan All Active Problems Generalized weakness (Acute) Acute renal insufficiency (Acute) UTI (urinary tract infection) (Acute) PETER (acute kidney injury) (Acute) Diarrhea (Acute) #1 dehydration-patient's creatinine today was 1.02 #2 generalized debility-patient's family would like to place him to be placed at least temporarily in a halfway facility, they would prefer TCU or the rehab unit at [facility] but would also accept the [facility] if there are no openings in the aforementioned places. #3 Parkinson's dementia #4 Parkinson's disease #5 type 2 diabetes-patient metformin was restarted today Code Visit Inpatient E&M: 15489 Subs Hosp L2
[2019-08-28 20:00] VITALS: BP 126/67; PULSE 79; RESP 18; TEMP 36.7; O2SAT 96
[2019-08-28] MEDS: Atorvastatin Calcium 10 MG Tablet PO (21:48)
[2019-08-28] MEDS: Donepezil HCl 10 MG Tablet PO (21:48)
[2019-08-28 21:55] LABS: Bedside Glucose 227 mg/dL (70-110)
--- NOTE | 2019-08-28 22:29 | NURSING ---
Gave handoff to Renetta CALVILLO she will be resuming care at this time.
[2019-08-28] MEDS: MELATONIN 3 MG TABLET PO (23:47)
[2019-08-29 03:20] VITALS: BP 109/61; PULSE 78; RESP 16; TEMP 36.7; O2SAT 98
[2019-08-29] MEDS: Carbidopa/Levodopa 25/100 Tablet PO (06:33)
[2019-08-29 08:15] VITALS: BP 122/69; PULSE 86; RESP 16; TEMP 36.5; O2SAT 96
[2019-08-29] MEDS: metFORMIN HCl 1,000 MG Tablet 1000 MG PO (08:19)
[2019-08-29] MEDS: Escitalopram Oxalate 20 MG Tablet PO (08:19)
[2019-08-29] MEDS: Enoxaparin 40 MG/0.4 ML Syringe SC (08:20)
[2019-08-29] MEDS: Glucerna Shake 120 ML LIQUID PO (08:22)
--- NOTE | 2019-08-29 11:10 | PCM.TXEXTCAR ---
- Diet 08/26/19 15:04 Diet: Calorie Controlled Food consistency:: Regular Liquid Consistency:: Regular/Thin How many daily calories?: 1800 calorie - Routine Orders/Code Status Routine Lab Work: - - fingerstick blood sugars ACQHS, coverage with Humalog SQ per protocol: 200-250: 5 units, 251-300: 8 units, 301-350: 12 units Code Status: Full Code - Therapies Physical Therapy: Eval and Treat Occupational Therapy: Eval and Treat - Problem/Diagnosis (1) Generalized weakness Status: Acute Current Visit: Yes (2) Diabetes mellitus, type II Status: Chronic Current Visit: Yes (3) Parkinsons disease Status: Chronic Current Visit: Yes (4) Parkinson's disease dementia Status: Chronic Current Visit: Yes (5) Hypertension Status: Chronic Current Visit: No - Allergies/Procedures Done in Hospital Allergies/Adverse Reactions: Allergies codeine Adverse Reaction (Verified 08/26/19 09:50) Nausea/Vom/Diarrhea Procedures: None - Type of Care/Length of Stay Estimated LOS: Convalescent Care Less Than 30 days Type of Care Needed: Skilled Rehab Potential: Good Prognosis: Good - Additional Orders/Day of Discharge H&P will serve as current which was dated: 08/26/19 Day of Discharge: 08/29/19 - Dietary and Speech Recommendations Dietitian Recommendations/Changes: Continue Glucerna 120 mL 4x/day - Follow Up Care Primary Care Physician: Brendan Morton III, MD [Primary Care Provider] - Please Follow Up With: Brendan Morton III, MD
[2019-08-29] MEDS: Insulin Lispro 100 UNIT/ML INSULN.PEN SC (11:32)
--- NOTE | 2019-08-29 11:41 | CASEMGMT ---
NAM spoke with [facility] and they would have a bed for patient. NAM spoke with patient and his and they would prefer TCU. They did make arrangements for [facility]. NAM told them NAM will notify Miri. NAM called Aleja and let her know patient will be coming today. Plan: TCU under skilled level of care. Shira TAYLOR MSW
[2019-08-29 11:55] LABS: Bedside Glucose 195 mg/dL (70-110)
--- NOTE | 2019-08-29 12:02 | NURSING ---
called report to Mónica in TCU, room is still dirty at this time and they will call back when room is clean for admission. pt and family updated.
--- NOTE | 2019-08-29 13:23 | CASEMGMT ---
LW/POA forms scanned into summary tab of [facility], Meg Barraza is listed as pt's medical POA. LEOBARDO Lee
--- NOTE | 2019-09-02 14:50 | PCM.DC.SUM ---
Discharge Date and Diagnosis - Problem List Patient Problems: Active and Suspected Problems Debility (Acute) Dehydration (Acute) Date of Admission: 08/26/19 Date of Discharge: 08/29/19 - Primary Discharge Diagnosis Active and Suspected Problems #1 dehydration #2 generalized debility-secondary to Parkinson's disease and Parkinson's dementia #3 Parkinson's dementia #4 Parkinson's disease #5 type 2 diabetes - Secondary Discharge Diagnosis Chronic Problems HLD (hyperlipidemia) (Chronic) Diabetes mellitus, type II (Chronic) Parkinsons disease (Chronic) Parkinson's disease dementia (Chronic) Diabetes mellitus type 2 in nonobese (Chronic) Hypertension (Chronic) Hospital Course and Treatment Operations: None Procedures: None Summary of Care Provided: The patient is a 73 year old M who was seen in the emergency room at [facility] after being brought in by his family due to generalized weakness. Patient has a history of Parkinson's disease and history of Parkinson's dementia. Work-up in the emergency room included labs which showed an elevation in his creatinine, CBC showed a normal white blood cell count, hemoglobin was normal, urinalysis showed +1 bacteria with 5-10 WBCs and 0-5 RBCs. Patient was admitted for dehydration and generalized weakness, he was seen by PT and OT, he was given IV fluids. Family requested the patient go to a skilled care facility for inpatient rehab, patient's physical therapy notes reflected the need for further skilled services. On 08/29/2019, patient was seen and examined and felt to be in stable condition for transfer to a long term facility for further care: On examination he appeared in good spirits. Vital signs as documented. Skin warm and dry and without overt rashes. Neck without JVD. Lungs clear. Heart exam notable for regular rhythm, normal sounds and absence of murmurs, rubs or gallops. Abdomen unremarkable and without evidence of organomegaly, masses, or abdominal aortic enlargement. Extremities nonedematous. Neuro: Cranial nerves II through XII are grossly intact, no focal motor deficits were noted, sensation to light touch and pinprick intact. Psych: Patient is alert, he exhibited confusion but was not anxious or agitated. Patient was discharged on 08/29/2019 Patient Problems: Active and Suspected Problems Debility (Acute) Dehydration (Acute) - Physical Exam Vitals/I&O's: Vital Signs Temp Pulse Resp BP Pulse Ox 97.7 F L 86 16 122/69 H 96 08/29/19 08:15 08/29/19 08:15 08/29/19 08:15 08/29/19 08:15 08/29/19 08:15 Oxygen Delivery Method Room Air Weight: 69.4 kg Body Mass Index (BMI) 21.9 Home Medications: Medications to take at Discharge donepezil 10 mg tablet 10 mg PO QHS 06/26/18 escitalopram oxalate 20 mg tablet 20 mg PO DAILY 06/26/18 Lisinopril 2.5 mg PO DAILY 06/01/19 Multivit-Mins/Iron/Folic/Lycop [Centrum Men's Tablet] 1 ea PO DAILY 06/01/19 Atorvastatin Calcium 10 mg PO QHS 08/26/19 Carbidopa/Levodopa [Carbidopa-Levo ER 25-100 Tab] 1 tab PO BID 08/26/19 Cholecalciferol (VIT D3) [Vitamin D3] 1,000 unit PO DAILY 08/26/19 Metformin HCl 1,000 mg PO BIDCM 08/29/19 Primary Care Physician: Brendan Morton III, MD [Primary Care Provider] - Please Follow Up With: Brendan Morton III, MD Disposition: Assisted facility Minutes spent on discharge:: 32 Patient Condition:: Stable Medical Necessity - Tobacco Use Smoking Status: Former smoker Tobacco Use: Non-smoker Meaningful Use Info Meaningful Use Diagnoses (Choose all that apply): None applicable Code Visit Inpatient E&M: 70597 Disch Hosp
== END 2019-08-29 13:40 | DRG 641 ==
LOC: ED 13:27 → PCU 13:54
PROVIDERS: Admitting Provider Family Medicine; Emergency Provider Emergency Medicine; Family Provider Family Medicine; PCP Family Medicine; Referring Provider Family Medicine; Visit Provider Internal Medicine
DX: E86.0 Dehydration (principal); G20 Parkinson's disease; F02.80 Dementia in other diseases classified elsewhere, unspecified severity, without behavioral disturbance, psychotic disturbance, mood disturbance, and anxiety; E11.9 Type 2 diabetes mellitus without complications; I10 Essential (primary) hypertension; E78.5 Hyperlipidemia, unspecified; Z87.891 Personal history of nicotine dependence; R53.81 Other malaise; Z79.84 Long term (current) use of oral hypoglycemic drugs
CPT/HCPCS: 36415; 80048; 80053; 81001; 82962; 83735; 84484; 85025; 87077; 87086; 87088; 87633; 92610; 93005; 97116; 97162; 97166; 97530; 97535; 97802; 99251; 99285; J7030; J7040; A4216; G0463

== ENCOUNTER 2019-08-29 13:40 | Inpatient (IN) | payer MEDICARE, OTHER, SELFPAY ==
[2019-08-29 14:17] VITALS: BP 122/67; PULSE 63; RESP 16; TEMP 36; O2SAT 99
[2019-08-29 14:36] VITALS: BMI 22.8
[2019-08-29 14:37] VITALS: BMI 22.8
[2019-08-29 15:24] VITALS: BP 111/63; PULSE 75; RESP 18; TEMP 36.3; O2SAT 98
--- NOTE | 2019-08-29 16:51 | PCM.PROGNOTE ---
Subjective: This 73-year-old diabetic male patient was consulted to podiatry for thickened, elongated, dystrophic toenails with the presence of subungual debris of toenails 1, 2, 3, 4, 5 of the right and left foot. Patient is resting comfortably in chair by the bed with his present in the room for exam. Patient states that he had to miss his appointment in our office with Dr. Cheung last week as he was here at the hospital. Patient currently denies any feelings of nausea, vomiting, fever, chills. - Physical Exam Vitals/I&O's: Vital Signs Temp Pulse Resp BP Pulse Ox 97.4 F L 75 18 111/63 98 08/29/19 15:24 08/29/19 15:24 08/29/19 15:24 08/29/19 15:24 08/29/19 15:24 Oxygen Delivery Method Room Air Weight: 72.235 kg Body Mass Index (BMI) 22.8 General: Alert, Oriented x3, Cooperative, No apparent distress Extremities: No cyanosis, Capillary Refill Less than 3 Seconds, No Calf Tenderness - Negative Cici breath sounds bilateral, Diminished Peripheral Pulses - DP pulses nonpalpable and PT pulses palpable bilateral Skin: - - Thickened, discolored, dystrophic toenails with the presence of subungual debris of toenails 1, 2, 3, 4, 5 of the right and left foot. A hyperkeratotic callus to the distal right third toe. Musculoskeletal: No Tenderness to Palpation of Joints or Extremities Neurological: - - Loss of normal epicritic sensation to lower extremities consistent with patient's diabetic status Psych/Mental Status: Normal Affect, Appropriate Current Medications Atorvastatin Calcium (Lipitor) 10 mg PO QHS [facility] Calamine/Phenol (Calmoseptine Ointment) 1 applic TOPICAL [facility]; Protocol Carbidopa/Levodopa (Sinemet Cr) 0.5 tablet PO BID [facility] Cholecalciferol (Vitamin D) 1,000 unit PO DAILY [facility] Donepezil HCl (Aricept) 10 mg PO QHS [facility] Escitalopram Oxalate (Lexapro) 20 mg PO DAILY [facility] Insulin Human Lispro (Humalog Kwikpen (Bkc)) 0 unit SC ACHS [facility]; Protocol Lisinopril (Zestril) 2.5 mg PO DAILY [facility] Metformin HCl (Glucophage) 1,000 mg PO BIDCM [facility] Multivitamins/Minerals (Multivitamin With Minerals) 1 tablet PO DAILYCM [facility] Tuberculin PPD (Tubersol, Aplisol, Ppd) 5 tu ID X1 ONE Stop: 08/30/19 10:01 Tuberculin PPD (Tubersol, Aplisol, Ppd) 5 tu ID X1 ONE Stop: 09/06/19 10:01 Medical Necessity - Tobacco Use Smoking Status: Former smoker Assessment/Plan All Active Problems Generalized weakness (Acute) Acute renal insufficiency (Acute) UTI (urinary tract infection) (Acute) PETER (acute kidney injury) (Acute) Diarrhea (Acute) Tinea unguium DM with neuropathy Callus Other comorbidities This patient was carefully examined and evaluated resting comfortably in a chair by his bed early this evening. Patient's present for exam. Patient's feet were carefully examined and a diabetic foot exam was performed. Next, toenails 1, 2, 3, 4, 5 of the right and left foot were carefully debrided in length using a nail nipper. This was done without incident. Next a hyperkeratotic callus to the distal right third toe was carefully debrided without incident. Patient is to continue to monitor these areas closely. Patient will follow up with Dr. Cheung in her office upon discharge. Podiatry can continue to follow this patient on an as-needed basis at this time. Thank you for the consult.
[2019-08-29 17:11] LABS: Bedside Glucose 101 mg/dL (70-110)
[2019-08-29] MEDS: CARBIDOPA/LEVODOPA CR 50/200 Tablet PO (17:54)
[2019-08-29] MEDS: metFORMIN HCl 1,000 MG Tablet 1000 MG PO (17:54)
--- NOTE | 2019-08-29 20:50 | HP.PCM_ITS ---
Problem List (1) Debility Status: Acute (2) Dehydration Status: Acute (3) Generalized weakness Status: Acute (4) UTI (urinary tract infection) Status: Acute (5) PETER (acute kidney injury) Status: Acute (6) HLD (hyperlipidemia) Status: Chronic Qualifiers: (7) Diabetes mellitus, type II Status: Chronic Qualifiers: (8) Parkinsons disease Status: Chronic (9) Parkinson's disease dementia Status: Chronic Qualifiers: (10) Hypertension Status: Chronic Qualifiers: History of Present Illness Date of Admission: 08/29/19 Chief Complaint: Here for rehabilitation, strengthening, prior to discharge home with . The patient is a 73 year old Male with below past medical history presented to [facility] Emergency Department 08/26/2019 with weakness. 08/26/2019 EKG sinus tachycardia, low voltage QRS, nonspecific T wave abnormality. Generalized weakness x 1 days, vomit x 1 en route in ambulance. IV Fluids given, UA equivocal, Urine culture sent. Acute kidney injury, Dehydration. 08/26/2019 Admit to Hospital. Rocephin IV for presumed urinary tract infection. Check Respiratory panel. IV Fluids for acute kidney injury. 08/27/2019 Acute kidney injury resolved. PT/OT, [facility] Facility for debility, patient has 13 steps at home. ? Parkinson Disease. ? Parkinson Disease Dementia. Respiratory panel NEGATIVE. Urine culture grew Aerococcus Viridans, but below infection level. 08/28/2019 Metformin restarted. 08/29/2018 Admit to TCU with debility, here for rehabilitation, strengthening, prior to discharge home with . Past Medical History Past Medical History (Chronic Problems): Chronic Problems HLD (hyperlipidemia) (Chronic) Diabetes mellitus, type II (Chronic) Parkinsons disease (Chronic) Parkinson's disease dementia (Chronic) Diabetes mellitus type 2 in nonobese (Chronic) Hypertension (Chronic) Medical History: Medical History Diarrhea (Acute) R19.7 Diabetes mellitus type 2 in nonobese (Chronic) E11.9 Hypertension (Chronic) I10 Allergies codeine Adverse Reaction (Verified 08/26/19 09:50) Nausea/Vom/Diarrhea Home Medications: Ambulatory Orders Medication Instructions Recorded donepezil 10 mg tablet 10 mg PO QHS 06/26/18 escitalopram oxalate 20 mg tablet 20 mg PO DAILY 06/26/18 Lisinopril 2.5 mg PO DAILY 06/01/19 Multivit-Mins/Iron/Folic/Lycop 1 ea PO DAILY 06/01/19 [Centrum Men's Tablet] Atorvastatin Calcium 10 mg PO QHS 08/26/19 Carbidopa/Levodopa [Carbidopa-Levo 1 tab PO BID 08/26/19 ER 25-100 Tab] Cholecalciferol (VIT D3) [Vitamin 1,000 unit PO DAILY 08/26/19 D3] Metformin HCl 1,000 mg PO BIDCM 08/29/19 Surgical History: Surgical History (Last Updated 06/26/18 @ 15:34 by Leah Iglesias) s/p stomach surgery Surgical History: - - Surgeries for peptic ulcer disease. Psychiatric History: Anxiety, Depression Lives: Spouse/ Significant Other Smoking Status: Former smoker Tobacco Use: Cigars Alcohol: None Drugs: None - *Family History Paternal Family History: Family History (Last Updated 06/26/18 @ 15:34 by Leah Iglesias) Father Hypertension Heart disease History Items: Heart Disease, Hypertension Maternal Family History: Family History (Last Updated 06/26/18 @ 15:34 by Leah Iglesias) Father Hypertension Heart disease History Items: Dementia Review of Systems Constitutional: Denies: Chills, Fever, Weight Change HEENT: Denies: Head Aches, Sinus Congestion, Sinus Drainage Cardiovascular: Denies: Chest Pain, Palpitations Respiratory: Denies: Cough, Shortness of breath at rest, Sputum production Gastrointestinal: Denies: Abdominal Pain, Nausea, Vomiting Genitourinary: Denies: Dysuria Musculoskeletal: Denies: Joint Pain, Joint Tenderness Skin: Denies: Rash, Wounds Neurological: Denies: Numbness, Tingling, Focal weakness Psychiatric: Denies: Anxiety, Depression, Homicidal Ideations, Suicidal Ideations Hematologic/ Lymphatic: Denies: Easy Bruising, Easy Bleeding VTE Information - Inpt Only VTE Present on Admission: No VTE Mechan Device Prophylaxis: Knee High KARTHIK Hose VTE Pharm Prophylaxis ordered?: Yes Patient Problems: Active and Suspected Problems Debility (Acute) Dehydration (Acute) - Physical Exam Vitals/I&O's: Vital Signs Temp Pulse Resp BP Pulse Ox 97.4 F L 75 18 111/63 98 08/29/19 15:24 08/29/19 15:24 08/29/19 15:24 08/29/19 15:24 08/29/19 15:24 Oxygen Delivery Method Room Air Weight: 72.235 kg Body Mass Index (BMI) 22.8 Intake and Output for Last 24 Hours 08/27/19 08/28/19 08/29/19 23:59 23:59 23:59 Intake Total 400 / 400 Balance 400 / 400 General: Alert, Oriented x3, Cooperative HEENT: Atraumatic, PERRLA, EOMI, Normocephalic Neck: Supple, No JVD, Negative Carotid Bruits Lungs: Clear to auscultation, Normal air movement Cardiovascular: Regular rate, No murmurs Abdomen: Bowel Sounds Present, Soft, Non Tender Extremities: No edema, Capillary Refill Less than 3 Seconds Skin: No rashes, No breakdown Musculoskeletal: No Tenderness to Palpation of Joints or Extremities Neurological: Cranial nerves II-XII grossly intact Psych/Mental Status: Normal Affect, Appropriate Laboratory Results 08/29/19 17:08: POC Glucose 101 Current Medications Atorvastatin Calcium (Lipitor) [address] [facility] Calamine/Phenol (Calmoseptine Ointment) [address] [facility]; Protocol Carbidopa/Levodopa (Sinemet Cr) 0.[address] [facility] Last Admin: 08/29/19 17:54 Dose: 0.5 tablet Documented by: Cholecalciferol (Vitamin D) 1,[address] [facility] Donepezil HCl (Aricept) [address] [facility] Escitalopram Oxalate (Lexapro) [address] [facility] Insulin Human Lispro (Humalog Kwikpen (Bkc)) [address] [facility]; Protocol Last Admin: 08/29/19 17:53 Dose: Not Given Documented by: Lisinopril (Zestril) 2.[address] [facility] Metformin [facility] Last Admin: 08/29/19 17:54 Dose: 1,000 mg Documented by: Multivitamins/Minerals (Multivitamin With Minerals) [facility] Tuberculin PPD (Tubersol, Aplisol, Ppd) 5 tu ID X1 ONE Stop: 08/30/19 10:01 Tuberculin PPD (Tubersol, Aplisol, Ppd) 5 tu ID X1 ONE Stop: 09/06/19 10:01 Assessment/Plan All Active Problems Generalized weakness (Acute) Acute renal insufficiency (Acute) UTI (urinary tract infection) (Acute) PETER (acute kidney injury) (Acute) Debility (Acute) Dehydration (Acute) Diarrhea (Acute) 73 year old male with below past medical history hospitalized for generalized weakness from acute kidney injury, dehydration, urinary tract infection, viral infection ruled out, admitted to TCU with debility, here for rehabilitation, strengthening, prior to discharge home with . * Debility - PT/OT. * Pain - Tylenol 1000MG Q6H PRN pain (1-10) * Bowel - Miralax 17GM daily, Senna/colace 1 tablet BID, Dulcolax 10MG daily PRN. * Adult immunization - Administer Prevnar 13, Pneumovax 23, Fluzone as appropriate. * DVT prophylaxis - Lovenox 40MG SC daily. * Hyperlipidemia - Atorvastatin 10MG QHS. * Parkinson Disease - Sinemet CR 50/200MG 1/2 tablet BID. * Vitamin D deficiency - D3 1000IU daily. * Parkinson Disease Dementia - Donepezil 10MG QHS. * Depression - Lexapro 20MG daily. * Diabetes Mellitus II - Metformin 1000MG BID, Lisinopril 2.5MG daily, monitor blood sugar. * Skin irritation - Calmoseptine BID. * Nutrition - MVI 1 tablet daily.
[2019-08-29] MEDS: Atorvastatin Calcium 10 MG Tablet PO (21:00)
[2019-08-29] MEDS: Donepezil HCl 10 MG Tablet PO (21:00)
[2019-08-29] MEDS: Insulin Lispro 100 UNIT/ML INSULN.PEN SC (21:00)
[2019-08-29] MEDS: Menthol/Lanolin/Calamine/Znox 113 GM Tube 1 APPLIC TOPICAL (21:02)
[2019-08-29 21:10] LABS: Bedside Glucose 186 mg/dL (70-110)
[2019-08-29] MEDS: MELATONIN 10 MG TABLET PO (23:19)
--- NOTE | 2019-08-29 23:20 | NURSING ---
Patient's c/o of not being able to sleep. Dr. Archuleta notified. New order given.
[2019-08-30 05:13] VITALS: BP 118/69; PULSE 75
[2019-08-30] MEDS: Enoxaparin 40 MG/0.4 ML Syringe SC (05:17)
[2019-08-30] MEDS: Senna/Docusate Sodium 1 Tablet PO (05:18)
[2019-08-30] MEDS: CARBIDOPA/LEVODOPA CR 50/200 Tablet PO ×2 (05:18→17:03)
[2019-08-30] MEDS: Lisinopril 2.5 MG Tablet PO (05:19)
[2019-08-30] MEDS: Escitalopram Oxalate 20 MG Tablet PO (05:19)
[2019-08-30] MEDS: Menthol/Lanolin/Calamine/Znox 113 GM Tube 1 APPLIC TOPICAL ×2 (05:21→19:50)
[2019-08-30 05:42] LABS: Absolute Lymphocyte Count 1.56 X10^3/uL (0.83-4.51); Absolute Neutrophil Count 4.6 X10^3/uL (2.0-7.7); Basophil# 0.04 X10^3/uL; Basophil% 0.5 % (0-1); Eosinophil# 0.22 X10^3/uL; Hematocrit 32.4 % (40-54); Hemoglobin 10.8 g/dL (13.0-16.5); Lymphocyte # 1.56 X10^3/ul (4.0); Lymphocyte % 21.4 % (19-41); Mean Corp Hgb Conc 33.3 g/dL (32-36); Mean Corpuscular Hgb 31.4 pg (27.0-32.0); Mean Corpuscular Volume 94.2 fL (80-94); Mean Platelet Vol. 10.6 fl (6.2-12.0); Monocyte# 0.88 X10^3/uL; Monocyte% 12.1 % (0-10); NRBC Flagged by Analyzer 0 % (0-5); Neutrophil # 4.55 X10^3/uL (2.7-7.7); Neutrophil % 62.5 % (47-70); Platelet Count 146 K/mm3 (150-450); RBC Distribution Width CV 12.8 % (11.6-14.6); Red Blood Count 3.44 M/mm3 (4.6-6.2); White Blood Count 7.3 K/mm3 (4.4-11.0)
[2019-08-30 06:17] LABS: Anion Gap 4 (5-15); BUN 14 mg/dL (7-18); BUN/Creat Ratio 15.6 RATIO (10-20); Calcium,Total 8.5 mg/dL (8.5-10.1); Chloride 109 mmol/L (98-107); EST Glomerular Filtration Rate 88 mL/min (>60); Est Glom Filt Rate - Afr Amer 107 mL/min (>60); Glucose 126 mg/dL (74-106); Potassium 4.3 mmol/L (3.5-5.1); Sodium Level 139 mmol/L (136-145)
[2019-08-30 06:36] LABS: Bedside Glucose 125 mg/dL (70-110)
--- NOTE | 2019-08-30 07:23 | PHA.CONS_ITS ---
<Farzad Hanley D - Last Filed: 08/30/19 07:23> Progress Note - Pharmacy Subjective: TCU Admission Objective: Allergies codeine Adverse Reaction (Verified 08/26/19 09:50) Nausea/Vom/Diarrhea Current Medications Generic Name Dose Route Start Last Admin Trade Name Freq PRN Reason Stop Dose Admin Acetaminophen 1,000 mg 08/29/19 21:06 Tylenol PO Q6H PRN PRN Pain Score 1-10/10 Atorvastatin Calcium 10 mg 08/29/19 22:00 08/29/19 21:00 Lipitor PO 10 mg QHS [facility] Administration Bisacodyl 10 mg 08/29/19 21:06 Dulcolax PO DAILY PRN Constipation Calamine/Phenol 1 applic 08/29/19 22:00 08/30/19 05:21 Calmoseptine Ointment TOPICAL 1 applicatio [facility] Administration Protocol Carbidopa/Levodopa 0.5 tablet 08/29/19 18:00 08/30/19 05:18 Sinemet Cr PO 0.5 tablet BID [facility] Administration Cholecalciferol 1,000 unit 08/30/19 06:00 08/30/19 05:19 Vitamin D PO 1,000 unit DAILY [facility] Administration Donepezil HCl 10 mg 08/29/19 22:00 08/29/19 21:00 Aricept PO 10 mg QHS [facility] Administration Enoxaparin Sodium 40 mg 08/30/19 06:00 08/30/19 05:17 Lovenox SC 40 mg DAILY@0600 [facility] Administration Escitalopram Oxalate 20 mg 08/30/19 06:00 08/30/19 05:19 Lexapro PO 20 mg DAILY [facility] Administration Lisinopril 2.5 mg 08/30/19 06:00 08/30/19 05:19 Zestril PO 2.5 mg DAILY [facility] Administration Melatonin 10 mg 08/29/19 23:15 08/29/19 23:19 Melatonin PO 10 mg QHS [facility] Administration Metformin HCl 1,000 mg 08/29/19 17:00 08/29/19 17:54 Glucophage PO 1,000 mg BIDCM [facility] Administration Multivitamins/Minerals 1 tablet 08/30/19 08:00 [facility] Polyethylene Glycol 17 gm 08/30/19 06:00 08/30/19 05:19 Miralax PO Not Given DAILY [facility] Senna/Docusate Sodium 1 tablet 08/30/19 06:00 08/30/19 05:18 Senokot-S, Kathya-Colace PO 1 tablet BID [facility] Administration Tuberculin PPD 5 08/30/19 10:00 Tubersol, Aplisol, Ppd ID 08/30/19 10:01 X1 ONE Tuberculin PPD 5 09/06/19 10:00 Tubersol, Aplisol, Ppd ID 09/06/19 10:01 X1 ONE Problem List Debility (Acute) Dehydration (Acute) Vital Signs Temp Pulse Resp BP Pulse Ox 97.4 F L 75 18 118/69 98 08/29/19 15:24 08/30/19 05:13 08/29/19 15:24 08/30/19 05:13 08/29/19 15:24 Oxygen Delivery Method Room Air Weight: 72.235 kg Body Mass Index (BMI) 22.8 Sodium 139 mmol/L (136-145) 08/30/19 05:15 Potassium 4.3 mmol/L (3.5-5.1) 08/30/19 05:15 Chloride 109 mmol/L (98-107) H 08/30/19 05:15 Carbon Dioxide 26.0 mmol/L (21.0-32.0) 08/30/19 05:15 Anion Gap 4 (5-15) L 08/30/19 05:15 BUN 14 mg/dL (7-18) 08/30/19 05:15 Creatinine 0.90 mg/dL (0.70-1.30) 08/30/19 05:15 Est GFR (MDRD) Af Amer 107 mL/min (>60) 08/30/19 05:15 Est GFR (MDRD) Non-Af 88 mL/min (>60) 08/30/19 05:15 BUN/Creatinine Ratio 15.6 RATIO (10-20) 08/30/19 05:15 Glucose 126 mg/dL (74-106) H 08/30/19 05:15 Assessment/Plan: 1) Pain APAP for pain score 1-10/10. Continue to monitor daily pain scores, prn medication use. 2) Parkinson's Sinemet, donepezil. Continue to monitor clinically. 3) HLD/DM2 Atorvastatin, metformin, lisinopril. Continue to monitor lipids, BP/HR, BGT, renal function. 4) DVT PPx Enoxaparin. Continue to monitor for bleeding/clot. 5) Sleep Melatonin at HS. Continue to monitor for insomnia. 6) Nutrition Multivitamin, D. Continue to monitor clinically. Psychotropic Medications: 7) Depression Escitalopram. Continue to monitor s/s depression/anxiety. Unnecessary Medications: None Bowel Regimen: 8) Senna/s, PEG, prn bisacodyl. Continue to monitor prn medication use, for constipation/diarrhea. Date of Note:: 08/30/19 - Provider Comments Provider responsibility: Provider responsible to enter orders to implement recommendations <Handy Archuleta Chi - Last Filed: 08/30/19 08:10> Progress Note - Pharmacy Subjective: [] Objective: Allergies codeine Adverse Reaction (Verified 08/26/19 09:50) Nausea/Vom/Diarrhea Current Medications Generic Name Dose Route Start Last Admin Trade Name Freq PRN Reason Stop Dose Admin Acetaminophen 1,000 mg 08/29/19 21:06 Tylenol PO Q6H PRN PRN Pain Score 1-10/10 Atorvastatin Calcium 10 mg 08/29/19 22:00 08/29/19 21:00 Lipitor PO 10 mg QHS [facility] Administration Bisacodyl 10 mg 08/29/19 21:06 Dulcolax PO DAILY PRN Constipation Calamine/Phenol 1 applic 08/29/19 22:00 08/30/19 05:21 Calmoseptine Ointment TOPICAL 1 applicatio [facility] Administration Protocol Carbidopa/Levodopa 0.5 tablet 08/29/19 18:00 08/30/19 05:18 Sinemet Cr PO 0.5 tablet BID [facility] Administration Cholecalciferol 1,000 unit 08/30/19 06:00 08/30/19 05:19 Vitamin D PO 1,000 unit DAILY [facility] Administration Donepezil HCl 10 mg 08/29/19 22:00 08/29/19 21:00 Aricept PO 10 mg QHS [facility] Administration Enoxaparin Sodium 40 mg 08/30/19 06:00 08/30/19 05:17 Lovenox SC 40 mg DAILY@0600 [facility] Administration Escitalopram Oxalate 20 mg 08/30/19 06:00 08/30/19 05:19 Lexapro PO 20 mg DAILY [facility] Administration Lisinopril 2.5 mg 08/30/19 06:00 08/30/19 05:19 Zestril PO 2.5 mg DAILY [facility] Administration Melatonin 10 mg 08/29/19 23:15 08/29/19 23:19 Melatonin PO 10 mg QHS [facility] Administration Metformin HCl 1,000 mg 08/29/19 17:00 08/30/19 07:55 Glucophage PO 1,000 mg BIDCM [facility] Administration Multivitamins/Minerals 1 tablet 08/30/19 08:00 08/30/19 07:55 Multivitamin With Minerals PO 1 tablet DAILYCM [facility] Administration Polyethylene Glycol 17 gm 08/30/19 06:00 08/30/19 05:19 Miralax PO Not Given DAILY [facility] Senna/Docusate Sodium 1 tablet 08/30/19 06:00 08/30/19 05:18 Senokot-S, Kathya-Colace PO 1 tablet BID [facility] Administration Tuberculin PPD 5 tu 08/30/19 10:00 Tubersol, Aplisol, Ppd ID 08/30/19 10:01 X1 ONE Tuberculin PPD 5 09/06/19 10:00 Tubersol, Aplisol, Ppd ID 09/06/19 10:01 X1 ONE Problem List Debility (Acute) Dehydration (Acute) Vital Signs Temp Pulse Resp BP Pulse Ox 97.4 F L 75 18 118/69 98 08/29/19 15:24 08/30/19 05:13 08/29/19 15:24 08/30/19 05:13 08/29/19 15:24 Oxygen Delivery Method Room Air Weight: 72.235 kg Body Mass Index (BMI) 22.8 Sodium 139 mmol/L (136-145) 08/30/19 05:15 Potassium 4.3 mmol/L (3.5-5.1) 08/30/19 05:15 Chloride 109 mmol/L (98-107) H 08/30/19 05:15 Carbon Dioxide 26.0 mmol/L (21.0-32.0) 08/30/19 05:15 Anion Gap 4 (5-15) L 08/30/19 05:15 BUN 14 mg/dL (7-18) 08/30/19 05:15 Creatinine 0.90 mg/dL (0.70-1.30) 08/30/19 05:15 Est GFR (MDRD) Af Amer 107 mL/min (>60) 08/30/19 05:15 Est GFR (MDRD) Non-Af 88 mL/min (>60) 08/30/19 05:15 BUN/Creatinine Ratio 15.6 RATIO (10-20) 08/30/19 05:15 Glucose 126 mg/dL (74-106) H 08/30/19 05:15 Assessment/Plan: Psychotropic Medications: Unnecessary Medications: Bowel Regimen: - Provider Comments Provider responsibility: Provider responsible to enter orders to implement recommendations Provider Comments to Recommendations by Pharmacy: Agree
[2019-08-30] MEDS: Multivitamins,Ther W-Minerals Tablet 1 TABLET PO (07:55)
[2019-08-30] MEDS: metFORMIN HCl 1,000 MG Tablet 1000 MG PO ×2 (07:55→17:03)
[2019-08-30] MEDS: Tuberculin,Purif.prot.deriv. 50 TU/ML Vial 5 ML ID (11:20)
[2019-08-30 11:30] LABS: Bedside Glucose 161 mg/dL (70-110)
[2019-08-30 16:00] VITALS: BP 107/64; PULSE 65; RESP 18; TEMP 36.9; O2SAT 96
--- NOTE | 2019-08-30 16:46 | CHAPLAIN ---
Type of Pastoral Visit _x__ Initial Visit ___ Follow-up Visit ___ On-call Visit ___ General Patient Visit ___ Spiritual Assessment ___ Family Conference ___ Bereavement ___ Rapid Response ___ Code Blue ___ Other (describe below) Pastoral Care Referral From _x__ Patient ___ Family ___ Nurse ___ Physician ___ Dye Boarding Machine Operator ___ Fuel Dock Attendant ___ Other (describe below) Sacrament/Intervention _x__ Active listening ___ Anointing ___ Scientology ___ Bereavement ___ Communion ___ Anny exploration ___ ___ Life review _x__ Prayer ___ Reconciliation ___ Sacrament of Sick _x__ Supportive presence ___ Wedding ___ Other (describe below) Pastoral Comments
[2019-08-30 17:05] LABS: Bedside Glucose 142 mg/dL (70-110)
[2019-08-30] MEDS: Calcium Carbonate 500 MG Tablet 1000 MG PO (19:46)
[2019-08-30] MEDS: Donepezil HCl 10 MG Tablet PO (19:47)
[2019-08-30] MEDS: Atorvastatin Calcium 10 MG Tablet PO (19:47)
[2019-08-30] MEDS: MELATONIN 10 MG TABLET PO (19:50)
[2019-08-30 21:36] LABS: Bedside Glucose 160 mg/dL (70-110)
[2019-08-31] MEDS: Enoxaparin 40 MG/0.4 ML Syringe SC (05:00)
[2019-08-31] MEDS: Lisinopril 2.5 MG Tablet PO (05:00)
[2019-08-31] MEDS: Escitalopram Oxalate 20 MG Tablet PO (05:01)
[2019-08-31] MEDS: CARBIDOPA/LEVODOPA CR 50/200 Tablet PO ×2 (05:01→17:35)
[2019-08-31] MEDS: Menthol/Lanolin/Calamine/Znox 113 GM Tube 1 APPLIC TOPICAL ×2 (05:03→20:04)
[2019-08-31 06:25] LABS: Bedside Glucose 120 mg/dL (70-110)
[2019-08-31] MEDS: Multivitamins,Ther W-Minerals Tablet 1 TABLET PO (07:53)
[2019-08-31] MEDS: metFORMIN HCl 1,000 MG Tablet 1000 MG PO ×2 (07:53→17:35)
[2019-08-31 09:16] VITALS: PULSE 79; RESP 14; O2SAT 99
[2019-08-31 10:51] LABS: Bedside Glucose 218 mg/dL (70-110)
[2019-08-31 16:00] VITALS: BP 119/64; PULSE 56; RESP 20; TEMP 36.7; O2SAT 99
[2019-08-31 16:36] LABS: Bedside Glucose 115 mg/dL (70-110)
--- NOTE | 2019-08-31 17:14 | NURSING ---
Addendum entered by Johanna Cortez 08/31/19 17:16: Tums 500mg q4hrs PRN Original Note: Notified Dr. Archuleta of patient c/o indigestion. Received order for Tums 500mg q4hrs. Order repeated back, will add order.
[2019-08-31] MEDS: Senna/Docusate Sodium 1 Tablet PO (17:36)
[2019-08-31] MEDS: Calcium Carbonate 500 MG Tablet PO (18:27)
[2019-08-31] MEDS: Donepezil HCl 10 MG Tablet PO (19:57)
[2019-08-31] MEDS: Atorvastatin Calcium 10 MG Tablet PO (19:59)
[2019-08-31] MEDS: Calcium Carbonate 500 MG Tablet 1000 MG PO (19:59)
[2019-08-31] MEDS: MELATONIN 10 MG TABLET PO (20:04)
[2019-08-31 21:30] LABS: Bedside Glucose 115 mg/dL (70-110)
[2019-09-01] MEDS: CARBIDOPA/LEVODOPA CR 50/200 Tablet PO ×2 (05:13→17:33)
[2019-09-01] MEDS: Escitalopram Oxalate 20 MG Tablet PO (05:13)
[2019-09-01] MEDS: Enoxaparin 40 MG/0.4 ML Syringe SC (05:13)
[2019-09-01] MEDS: Lisinopril 2.5 MG Tablet PO (05:13)
[2019-09-01] MEDS: Menthol/Lanolin/Calamine/Znox 113 GM Tube 1 APPLIC TOPICAL ×2 (05:14→20:00)
[2019-09-01 06:21] LABS: Bedside Glucose 125 mg/dL (70-110)
[2019-09-01] MEDS: metFORMIN HCl 1,000 MG Tablet 1000 MG PO ×2 (07:54→17:33)
[2019-09-01] MEDS: Multivitamins,Ther W-Minerals Tablet 1 TABLET PO (07:54)
[2019-09-01 10:31] LABS: Bedside Glucose 137 mg/dL (70-110)
[2019-09-01 11:56] LABS: Bedside Glucose 133 mg/dL (70-110)
[2019-09-01 16:00] VITALS: BP 118/59; PULSE 70; RESP 18; TEMP 36.2; O2SAT 96
[2019-09-01 16:51] LABS: Bedside Glucose 125 mg/dL (70-110)
[2019-09-01] MEDS: Senna/Docusate Sodium 1 Tablet PO (17:32)
[2019-09-01] MEDS: Atorvastatin Calcium 10 MG Tablet PO (20:00)
[2019-09-01] MEDS: Donepezil HCl 10 MG Tablet PO (20:00)
[2019-09-01] MEDS: MELATONIN 10 MG TABLET PO (20:00)
[2019-09-01] MEDS: Calcium Carbonate 500 MG Tablet 1000 MG PO (20:00)
[2019-09-01 21:25] LABS: Bedside Glucose 266 mg/dL (70-110)
[2019-09-02] MEDS: Enoxaparin 40 MG/0.4 ML Syringe SC (05:32)
[2019-09-02] MEDS: Polyethylene Glycol 3350 17 GM PACKET PO (05:32)
[2019-09-02] MEDS: CARBIDOPA/LEVODOPA CR 50/200 Tablet PO ×2 (05:33→16:31)
[2019-09-02] MEDS: Escitalopram Oxalate 20 MG Tablet PO (05:33)
[2019-09-02] MEDS: Lisinopril 2.5 MG Tablet PO (05:33)
[2019-09-02] MEDS: Menthol/Lanolin/Calamine/Znox 113 GM Tube 1 APPLIC TOPICAL ×2 (05:33→19:40)
[2019-09-02 06:16] LABS: Bedside Glucose 131 mg/dL (70-110)
[2019-09-02] MEDS: Multivitamins,Ther W-Minerals Tablet 1 TABLET PO (07:49)
[2019-09-02] MEDS: metFORMIN HCl 1,000 MG Tablet 1000 MG PO ×2 (07:49→16:31)
[2019-09-02 10:15] VITALS: PULSE 71; RESP 18
[2019-09-02] MEDS: Calcium Carbonate 500 MG Tablet PO (13:39)
[2019-09-02 15:27] VITALS: BP 113/55; PULSE 67; RESP 18; TEMP 36.1; O2SAT 97
[2019-09-02] MEDS: Calcium Carbonate 500 MG Tablet 1000 MG PO (19:36)
[2019-09-02] MEDS: Atorvastatin Calcium 10 MG Tablet PO (19:36)
[2019-09-02] MEDS: Donepezil HCl 10 MG Tablet PO (19:37)
[2019-09-02] MEDS: MELATONIN 10 MG TABLET PO (19:39)
[2019-09-03 04:59] VITALS: BP 127/61; PULSE 74
[2019-09-03] MEDS: Escitalopram Oxalate 20 MG Tablet PO (05:01)
[2019-09-03] MEDS: Enoxaparin 40 MG/0.4 ML Syringe SC (05:01)
[2019-09-03] MEDS: CARBIDOPA/LEVODOPA CR 50/200 Tablet PO ×2 (05:01→16:34)
[2019-09-03] MEDS: Lisinopril 2.5 MG Tablet PO (05:01)
[2019-09-03] MEDS: Menthol/Lanolin/Calamine/Znox 113 GM Tube 1 APPLIC TOPICAL ×2 (05:02→22:04)
[2019-09-03 06:31] LABS: Bedside Glucose 113 mg/dL (70-110)
[2019-09-03] MEDS: Multivitamins,Ther W-Minerals Tablet 1 TABLET PO (07:38)
[2019-09-03] MEDS: metFORMIN HCl 1,000 MG Tablet 1000 MG PO ×2 (07:38→16:34)
[2019-09-03] MEDS: Calcium Carbonate 500 MG Tablet PO ×2 (13:34→18:13)
[2019-09-03 16:00] VITALS: BP 108/63; PULSE 65; RESP 18; TEMP 36.5; O2SAT 97
[2019-09-03 19:58] VITALS: PULSE 83; O2SAT 96
[2019-09-03] MEDS: Calcium Carbonate 500 MG Tablet 1000 MG PO (22:02)
[2019-09-03] MEDS: MELATONIN 10 MG TABLET PO (22:04)
[2019-09-03] MEDS: Atorvastatin Calcium 10 MG Tablet PO (22:04)
[2019-09-03] MEDS: Donepezil HCl 10 MG Tablet PO (22:04)
[2019-09-04] MEDS: CARBIDOPA/LEVODOPA CR 50/200 Tablet PO ×2 (05:48→17:04)
[2019-09-04] MEDS: Lisinopril 2.5 MG Tablet PO (05:48)
[2019-09-04] MEDS: Escitalopram Oxalate 20 MG Tablet PO (05:49)
[2019-09-04] MEDS: Enoxaparin 40 MG/0.4 ML Syringe SC (05:50)
[2019-09-04] MEDS: Menthol/Lanolin/Calamine/Znox 113 GM Tube 1 APPLIC TOPICAL ×2 (05:51→20:33)
[2019-09-04 06:26] LABS: Bedside Glucose 107 mg/dL (70-110)
[2019-09-04] MEDS: metFORMIN HCl 1,000 MG Tablet 1000 MG PO ×2 (08:34→17:03)
[2019-09-04] MEDS: Multivitamins,Ther W-Minerals Tablet 1 TABLET PO (08:35)
--- NOTE | 2019-09-04 09:26 | CASEMGMT ---
Social Work IDT met with patient and for care plan meeting. Discussed patient's progress in therapy. Pt is min assist for LE ADLS, SBA to CGA for UE ADLS, toileting and transfers, SBA walking 270 ft with FWW and trailing a cane at CGA. Pt was using no device prior and independent with all ADLs. Pt has completed 10 steps SBA as pt goes to 2nd floor to bedroom and bathroom. ST is working with pt and is doing well with finances, but struggling with comprehension and medication management. assisted with medications prior and recommending continuing with supervision of tasks. Pt has some weight loss and is started on Glucerna. Explained Medicare benefit. Pt and expressed appreciation to TCU staff. Pt will continue to work with therapy. Will continue to follow. JASON MerrittW
[2019-09-04] MEDS: Glucerna Shake 120 ML LIQUID PO ×3 (12:28→20:28)
[2019-09-04 16:00] VITALS: BP 102/58; PULSE 72; RESP 18; TEMP 36.7; O2SAT 97
[2019-09-04] MEDS: Calcium Carbonate 500 MG Tablet PO (18:23)
[2019-09-04] MEDS: Donepezil HCl 10 MG Tablet PO (20:29)
[2019-09-04] MEDS: Calcium Carbonate 500 MG Tablet 1000 MG PO (20:29)
[2019-09-04] MEDS: Atorvastatin Calcium 10 MG Tablet PO (20:29)
[2019-09-04] MEDS: MELATONIN 10 MG TABLET PO (20:33)
[2019-09-05] MEDS: Glucerna Shake 120 ML LIQUID PO ×4 (05:49→20:09)
[2019-09-05] MEDS: Lisinopril 2.5 MG Tablet PO (05:50)
[2019-09-05] MEDS: Escitalopram Oxalate 20 MG Tablet PO (05:50)
[2019-09-05] MEDS: Enoxaparin 40 MG/0.4 ML Syringe SC (05:51)
[2019-09-05] MEDS: Menthol/Lanolin/Calamine/Znox 113 GM Tube 1 APPLIC TOPICAL ×2 (05:52→20:13)
[2019-09-05 06:30] LABS: Bedside Glucose 147 mg/dL (70-110)
[2019-09-05] MEDS: Multivitamins,Ther W-Minerals Tablet 1 TABLET PO (07:37)
[2019-09-05] MEDS: metFORMIN HCl 1,000 MG Tablet 1000 MG PO ×2 (07:37→16:35)
[2019-09-05] MEDS: Calcium Carbonate 500 MG Tablet PO (09:54)
[2019-09-05 15:31] VITALS: BP 111/59; PULSE 77; RESP 18; TEMP 36.4; O2SAT 96
[2019-09-05] MEDS: Atorvastatin Calcium 10 MG Tablet PO (20:09)
[2019-09-05] MEDS: Calcium Carbonate 500 MG Tablet 1000 MG PO (20:10)
[2019-09-05] MEDS: Donepezil HCl 10 MG Tablet PO (20:10)
[2019-09-05] MEDS: MELATONIN 10 MG TABLET PO (20:12)
[2019-09-06] MEDS: Glucerna Shake 120 ML LIQUID PO ×4 (05:35→21:58)
[2019-09-06] MEDS: Enoxaparin 40 MG/0.4 ML Syringe SC (05:35)
[2019-09-06] MEDS: Lisinopril 2.5 MG Tablet PO (05:35)
[2019-09-06] MEDS: Escitalopram Oxalate 20 MG Tablet PO (05:35)
[2019-09-06] MEDS: Menthol/Lanolin/Calamine/Znox 113 GM Tube 1 APPLIC TOPICAL ×2 (05:37→22:00)
[2019-09-06 05:50] LABS: Absolute Neutrophil Count 5.1 X10^3/uL (2.0-7.7); Basophil# 0.06 X10^3/uL; Basophil% 0.7 % (0-1); Eosinophils% 2.3 % (0-5); Hematocrit 34.6 % (40-54); Hemoglobin 11.1 g/dL (13.0-16.5); Lymphocyte % 26.8 % (19-41); Mean Corp Hgb Conc 32.1 g/dL (32-36); Mean Corpuscular Hgb 30.8 pg (27.0-32.0); Mean Corpuscular Volume 96.1 fL (80-94); Monocyte# 0.77 X10^3/uL; NRBC Flagged by Analyzer 0 % (0-5); Neutrophil # 5.14 X10^3/uL (2.7-7.7); Neutrophil % 59.8 % (47-70); Platelet Count 236 K/mm3 (150-450); RBC Distribution Width CV 12.9 % (11.6-14.6); RBC Distribution Width SD 45.1 fl (35.1-43.9); White Blood Count 8.6 K/mm3 (4.4-11.0)
[2019-09-06 06:20] LABS: Bedside Glucose 149 mg/dL (70-110)
[2019-09-06 06:25] LABS: Anion Gap 4 (5-15); BUN 24 mg/dL (7-18); BUN/Creat Ratio 22.6 RATIO (10-20); Calcium,Total 9.4 mg/dL (8.5-10.1); Chloride 107 mmol/L (98-107); Creatinine, Serum 1.06 mg/dL (0.70-1.30); EST Glomerular Filtration Rate 73 mL/min (>60); Est Glom Filt Rate - Afr Amer 88 mL/min (>60); Estimated Creatinine Clearance 61.66 ml/min; Glucose 134 mg/dL (74-106); Potassium 4.5 mmol/L (3.5-5.1); Sodium Level 138 mmol/L (136-145)
[2019-09-06] MEDS: metFORMIN HCl 1,000 MG Tablet 1000 MG PO ×2 (08:43→17:33)
[2019-09-06] MEDS: Multivitamins,Ther W-Minerals Tablet 1 TABLET PO (08:43)
[2019-09-06] MEDS: Tuberculin,Purif.prot.deriv. 50 TU/ML Vial 5 ML ID (10:14)
[2019-09-06] MEDS: Calcium Carbonate 500 MG Tablet 1000 MG PO (14:06)
[2019-09-06 15:36] VITALS: BP 130/67; PULSE 80; RESP 18; TEMP 36.4; O2SAT 99
[2019-09-06] MEDS: Calcium Carbonate 500 MG Tablet PO (18:13)
[2019-09-06] MEDS: Atorvastatin Calcium 10 MG Tablet PO (21:58)
[2019-09-06] MEDS: Donepezil HCl 10 MG Tablet PO (21:58)
[2019-09-06] MEDS: MELATONIN 10 MG TABLET PO (21:58)
[2019-09-07] MEDS: Enoxaparin 40 MG/0.4 ML Syringe SC (04:16)
[2019-09-07] MEDS: Glucerna Shake 120 ML LIQUID PO ×4 (04:16→20:04)
[2019-09-07] MEDS: Escitalopram Oxalate 20 MG Tablet PO (04:16)
[2019-09-07] MEDS: Lisinopril 2.5 MG Tablet PO (04:16)
[2019-09-07] MEDS: Menthol/Lanolin/Calamine/Znox 113 GM Tube 1 APPLIC TOPICAL ×2 (04:18→20:05)
[2019-09-07 06:26] LABS: Bedside Glucose 139 mg/dL (70-110)
[2019-09-07] MEDS: metFORMIN HCl 1,000 MG Tablet 1000 MG PO ×2 (07:53→16:14)
[2019-09-07] MEDS: Multivitamins,Ther W-Minerals Tablet 1 TABLET PO (07:54)
[2019-09-07] MEDS: Calcium Carbonate 500 MG Tablet PO (13:35)
[2019-09-07 15:13] VITALS: BP 124/62; PULSE 82; RESP 18; TEMP 36.4; O2SAT 97
[2019-09-07] MEDS: Atorvastatin Calcium 10 MG Tablet PO (20:03)
[2019-09-07] MEDS: Donepezil HCl 10 MG Tablet PO (20:03)
[2019-09-07] MEDS: Calcium Carbonate 500 MG Tablet 1000 MG PO (20:04)
[2019-09-07] MEDS: MELATONIN 10 MG TABLET PO (21:57)
[2019-09-08] MEDS: Glucerna Shake 120 ML LIQUID PO ×4 (05:40→21:44)
[2019-09-08] MEDS: Escitalopram Oxalate 20 MG Tablet PO (05:41)
[2019-09-08] MEDS: Lisinopril 2.5 MG Tablet PO (05:41)
[2019-09-08] MEDS: Enoxaparin 40 MG/0.4 ML Syringe SC (05:41)
[2019-09-08] MEDS: Menthol/Lanolin/Calamine/Znox 113 GM Tube 1 APPLIC TOPICAL ×2 (05:42→21:44)
[2019-09-08 06:26] LABS: Bedside Glucose 150 mg/dL (70-110)
[2019-09-08] MEDS: Multivitamins,Ther W-Minerals Tablet 1 TABLET PO (07:45)
[2019-09-08] MEDS: metFORMIN HCl 1,000 MG Tablet 1000 MG PO ×2 (07:45→16:48)
[2019-09-08 07:51] VITALS: PULSE 68; O2SAT 97
[2019-09-08] MEDS: Calcium Carbonate 500 MG Tablet PO (14:03)
[2019-09-08 15:27] VITALS: BP 106/60; PULSE 71; RESP 18; TEMP 36.6; O2SAT 97
[2019-09-08] MEDS: MELATONIN 10 MG TABLET PO (21:44)
[2019-09-08] MEDS: Calcium Carbonate 500 MG Tablet 1000 MG PO (21:44)
[2019-09-08] MEDS: Donepezil HCl 10 MG Tablet PO (21:44)
[2019-09-08] MEDS: Atorvastatin Calcium 10 MG Tablet PO (21:44)
[2019-09-09] MEDS: Enoxaparin 40 MG/0.4 ML Syringe SC (05:56)
[2019-09-09] MEDS: Escitalopram Oxalate 20 MG Tablet PO (05:56)
[2019-09-09] MEDS: Glucerna Shake 120 ML LIQUID PO ×4 (05:56→21:01)
[2019-09-09] MEDS: Lisinopril 2.5 MG Tablet PO (05:56)
[2019-09-09] MEDS: Menthol/Lanolin/Calamine/Znox 113 GM Tube 1 APPLIC TOPICAL ×2 (05:59→20:52)
[2019-09-09 06:11] LABS: Bedside Glucose 123 mg/dL (70-110)
[2019-09-09] MEDS: metFORMIN HCl 1,000 MG Tablet 1000 MG PO ×2 (07:43→16:30)
[2019-09-09] MEDS: Multivitamins,Ther W-Minerals Tablet 1 TABLET PO (07:43)
[2019-09-09 07:44] VITALS: PULSE 70; O2SAT 97
[2019-09-09] MEDS: Calcium Carbonate 500 MG Tablet PO ×2 (08:47→13:30)
[2019-09-09 16:00] VITALS: BP 126/68; PULSE 73; RESP 18; TEMP 36.5; O2SAT 98
[2019-09-09] MEDS: CARBIDOPA/LEVODOPA CR 50/200 Tablet PO (16:31)
[2019-09-09 19:46] LABS: Mucous, Urine 0 SEEN /hpf (<or=2+); Red Blood Cells-Urine 0 SEEN /hpf (0-5); White Blood Cells 0 SEEN /hpf (0-5)
[2019-09-09 19:52] LABS: Color, Urine Yellow (Yellow); Glucose, Dipstick 50 mg/dl (Normal); Ketone-Dipstick 5 mg/dl (Negative); Leukocyte Esterase-Dipstick Negative /ul (Negative); Nitrite-Dipstick Negative (Negative); Occult Blood-Urine Negative /ul (Negative); Protein-Dipstick 15 mg/dl (Negative); Specific Gravity, Urine 1.015 (1.002-1.030); Urine Bilirubin Dipstick Negative (Negative); Urine Clarity Cloudy (Clear); Urine Urobilinogen Normal (Normal)
[2019-09-09 20:12] LABS: Amorphous Sediment 2+; Bacteria 4+ /hpf (None Seen); Squamous Epithelial Cells - UA 0-5 SEEN /hpf (0-5)
[2019-09-09] MEDS: Atorvastatin Calcium 10 MG Tablet PO (20:53)
[2019-09-09] MEDS: Donepezil HCl 10 MG Tablet PO (20:54)
[2019-09-09] MEDS: Calcium Carbonate 500 MG Tablet 1000 MG PO (20:54)
[2019-09-09] MEDS: MELATONIN 10 MG TABLET PO (21:01)
[2019-09-10] MEDS: Menthol/Lanolin/Calamine/Znox 113 GM Tube 1 APPLIC TOPICAL ×2 (05:35→20:39)
[2019-09-10] MEDS: Glucerna Shake 120 ML LIQUID PO ×4 (05:35→20:39)
[2019-09-10] MEDS: Lisinopril 2.5 MG Tablet PO (05:36)
[2019-09-10] MEDS: Escitalopram Oxalate 20 MG Tablet PO (05:36)
[2019-09-10] MEDS: Enoxaparin 40 MG/0.4 ML Syringe SC (05:36)
[2019-09-10 06:16] LABS: Bedside Glucose 120 mg/dL (70-110)
--- NOTE | 2019-09-10 06:49 | MDS.RN ---
Information for the mds was obtained from review of the clinical record, interview of resident, staff, and direct observation of resident's care.
[2019-09-10] MEDS: CARBIDOPA/LEVODOPA CR 50/200 Tablet PO ×2 (08:11→16:27)
[2019-09-10] MEDS: metFORMIN HCl 1,000 MG Tablet 1000 MG PO ×2 (08:11→16:27)
[2019-09-10] MEDS: Multivitamins,Ther W-Minerals Tablet 1 TABLET PO (08:12)
[2019-09-10 16:00] VITALS: BP 109/67; PULSE 79; RESP 18; TEMP 36.8; O2SAT 97
[2019-09-10] MEDS: Calcium Carbonate 500 MG Tablet PO (16:26)
[2019-09-10] MEDS: Calcium Carbonate 500 MG Tablet 1000 MG PO (20:39)
[2019-09-10] MEDS: Atorvastatin Calcium 10 MG Tablet PO (20:39)
[2019-09-10] MEDS: Donepezil HCl 10 MG Tablet PO (20:39)
[2019-09-10] MEDS: MELATONIN 10 MG TABLET PO (22:07)
[2019-09-11] MEDS: Escitalopram Oxalate 20 MG Tablet PO (04:30)
[2019-09-11] MEDS: Glucerna Shake 120 ML LIQUID PO ×4 (04:30→20:02)
[2019-09-11] MEDS: Menthol/Lanolin/Calamine/Znox 113 GM Tube 1 APPLIC TOPICAL ×2 (04:30→20:02)
[2019-09-11] MEDS: Lisinopril 2.5 MG Tablet PO (04:30)
[2019-09-11] MEDS: Enoxaparin 40 MG/0.4 ML Syringe SC (04:31)
[2019-09-11 06:31] LABS: Bedside Glucose 114 mg/dL (70-110)
[2019-09-11] MEDS: CARBIDOPA/LEVODOPA CR 50/200 Tablet PO ×2 (07:55→17:59)
[2019-09-11] MEDS: Multivitamins,Ther W-Minerals Tablet 1 TABLET PO (09:25)
[2019-09-11] MEDS: metFORMIN HCl 1,000 MG Tablet 1000 MG PO ×2 (09:25→17:58)
[2019-09-11 10:00] VITALS: RESP 14
--- NOTE | 2019-09-11 15:55 | CHAPLAIN ---
Type of Pastoral Visit ___ Initial Visit _x__ Follow-up Visit ___ On-call Visit ___ General Patient Visit ___ Spiritual Assessment ___ Family Conference ___ Bereavement ___ Rapid Response ___ Code Blue ___ Other (describe below) Pastoral Care Referral From _x__ Patient ___ Family ___ Nurse ___ Physician ___ Ab Initio Etl Developer ___ Hot Wire Glass Tube Cutter ___ Other (describe below) Sacrament/Intervention ___ Active listening ___ Anointing ___ Evangelical ___ Bereavement ___ Communion ___ Anny exploration ___ ___ Life review ___ Prayer ___ Reconciliation ___ Sacrament of Sick _x__ Supportive presence ___ Wedding ___ Other (describe below) Pastoral Comments very brief hello as follow up
--- NOTE | 2019-09-11 16:40 | CASEMGMT ---
Social Work Met with pt and and to speak about DC plans. Pt requesting to DC home 09/14 with [email or web address] PT/OT/ST. No DME needs. IDT agreeable. Plan: DC home with 09/14, [email or web address] PT/OT/ST. Vicky Blankenship, REGIONAL CONSTRUCTION MANAGER EMPLOYEE PLACEMENT SPECIALIST
[2019-09-11 17:12] VITALS: BP 111/61; PULSE 67; RESP 20; TEMP 36.5; O2SAT 100
--- NOTE | 2019-09-11 19:49 | DCINST_ITS ---
- Discharge Diagnoses Current Active Problems: Current Active and Chronic Problems Debility (Acute) Dehydration (Acute) You will use the following diet at home:: No restrictions, Regular Your food should be the consistency of: Regular Your liquids should be the consistency of: Regular/Thin Discharge Activity: Return to Normal Activity, May Shower, Use Walker Weight Bearing Status: Weight bearing as tolerated Call your doctor if you observe: Fever of 101 or Higher, Inability to urinate, Inability to have a bowel movement, Shortness of breath, Chest pain, Uncontrolled pain Allergies/Adverse Reactions: Allergies codeine Adverse Reaction (Verified 08/26/19 09:50) Nausea/Vom/Diarrhea Medications to take at Discharge donepezil 10 mg tablet 10 mg PO QHS 06/26/18 escitalopram oxalate 20 mg tablet 20 mg PO DAILY 06/26/18 Lisinopril 2.5 mg PO DAILY 06/01/19 Multivit-Mins/Iron/Folic/Lycop [Centrum Men's Tablet] 1 ea PO DAILY 06/01/19 Atorvastatin Calcium 10 mg PO QHS 08/26/19 Carbidopa/Levodopa [Carbidopa-Levo ER 25-100 Tab] 1 tab PO BID 08/26/19 Cholecalciferol (VIT D3) [Vitamin D3] 1,000 unit PO DAILY 08/26/19 Metformin HCl 1,000 mg PO BIDCM 08/29/19 Acetaminophen [Tylenol] 1,000 mg PO Q6H PRN PRN tablet 09/11/19 Calcium Carbonate [Tums] 1,000 mg PO QHS tablet 09/11/19 Calcium Carbonate [Tums] 500 mg PO Q4H PRN PRN tablet 09/11/19 Carbidopa/Levodopa 50/200 [Sinemet CR 50/200] 1 tablet PO BIDAC tablet.sa 09/11/19 Lactobacillus Acidophilus [Acidophilus] 1 tab PO DAILY tab 09/11/19 Melatonin 10 mg PO QHS tab 09/11/19 Menthol/Lanolin/Calamine/Znox [Calmoseptine Ointment] 1 applic TOPICAL tube 09/11/19 metFORMIN HCl [Glucophage] 1,000 mg PO BIDCM tab 09/11/19 Primary Care Physician: Brendan Morton III, MD [Primary Care Provider] - Please follow up with your Primary Care Physician in: 1 week. Test Results: Test results from this visit will be discussed in further detail at your follow- up appointment, if applicable. Please Follow Up With: Brendan Morton III, MD Proposed Discharge Date: 09/14/19
--- NOTE | 2019-09-11 19:50 | PCM.DC.SUM ---
Discharge Date and Diagnosis - Problem List Patient Problems: Active and Suspected Problems Debility (Acute) Dehydration (Acute) Date of Admission: 08/26/19 Date of Discharge: 09/14/19 - Primary Discharge Diagnosis Active and Suspected Problems Debility (Acute) Dehydration (Acute) - Secondary Discharge Diagnosis Chronic Problems HLD (hyperlipidemia) (Chronic) Diabetes mellitus, type II (Chronic) Parkinsons disease (Chronic) Parkinson's disease dementia (Chronic) Diabetes mellitus type 2 in nonobese (Chronic) Hypertension (Chronic) Hospital Course and Treatment Imaging Results: 08/29/19 Dinner Diet: Calorie Controlled Food consistency:: Regular Liquid Consistency:: Regular/Thin Is pt able to select menu?: Yes How many daily calories?: 1800 calorie Labs (Last 48 Hours) 09/09/19 09/10/19 09/11/19 19:18 06:10 06:18 Urine Color Yellow Urine Clarity Cloudy Urine pH 7.0 Ur Specific [place] 1.015 Urine Protein 15 H Urine Glucose (UA) 50 H Urine Ketones 5 H Urine Occult Blood Negative Urine Nitrite Negative Urine Bilirubin Negative Urine Urobilinogen Normal Ur Leukocyte Esterase Negative Urine RBC 0 SEEN Urine WBC 0 SEEN Ur Squamous Epith Cells 0-5 SEEN Amorphous Sediment 2+ Urine Bacteria 4+ Urine Mucus 0 SEEN POC Glucose 120 H 114 H Microbiology 09/09/19 19:18 Urine Catheter - Rivera Urine Culture - Final Mixed Gram Positive Organisms Operations: None Procedures: None Summary of Care Provided: The patient is a 73 year old Male with below past medical history hospitalized for generalized weakness from acute kidney injury, dehydration, urinary tract infection, viral infection ruled out, admitted to TCU with debility, here for rehabilitation, strengthening, prior to discharge home with . Discharge home with , [facility] PT/OT/ST. Patient Problems: Active and Suspected Problems Debility (Acute) Dehydration (Acute) - Physical Exam Vitals/I&O's: Vital Signs Temp Pulse Resp BP Pulse Ox 97.7 F L 67 20 H 111/61 100 09/11/19 17:12 09/11/19 17:12 09/11/19 17:12 09/11/19 17:12 09/11/19 17:12 Oxygen Delivery Method Room Air Weight: 70.845 kg Body Mass Index (BMI) 22.8 Intake and Output for Last 24 Hours 09/09/19 09/10/19 09/11/19 23:59 23:59 23:59 Intake Total 840 / 840 1200 / 1200 600 / 600 Output Total 400 / 400 575 / 575 Balance 440 / 440 625 / 625 600 / 600 Microbiology Past 72 Hours 09/09/19 19:18 Urine Catheter - Rivera Urine Culture - Final Mixed Gram Positive Organisms Laboratory Results 09/11/19 06:18: POC Glucose 114 H Current Medications Acetaminophen (Tylenol) 1,000 mg PO Q6H PRN PRN PRN Reason: Pain Score 1-10/10 Atorvastatin Calcium (Lipitor) 10 mg PO QHS [facility] Last Admin: 09/10/19 20:39 Dose: 10 mg Documented by: Bisacodyl (Dulcolax) 10 mg PO DAILY PRN PRN Reason: Constipation Calamine/Phenol (Calmoseptine Ointment) 1 applic TOPICAL [facility]; Protocol Last Admin: 09/11/19 04:30 Dose: 1 applicatio Documented by: Calcium Carbonate (Tums) 1,000 mg PO QHS [facility] Last Admin: 09/10/19 20:39 Dose: 1,000 mg Documented by: Calcium Carbonate (Tums) 500 mg PO Q4H PRN PRN PRN Reason: INDIGESTION Last Admin: 09/10/19 16:26 Dose: 500 mg Documented by: Carbidopa/Levodopa (Sinemet Cr) 0.5 tablet PO BIDAC [facility] Last Admin: 09/11/19 17:59 Dose: 0.5 tablet Documented by: Cholecalciferol (Vitamin D) 1,000 unit PO DAILY [facility] Last Admin: 09/11/19 04:30 Dose: 1,000 unit Documented by: Donepezil HCl (Aricept) 10 mg PO QHS [facility] Last Admin: 09/10/19 20:39 Dose: 10 mg Documented by: Enoxaparin Sodium (Lovenox) 40 mg SC DAILY@0600 [facility] Last Admin: 09/11/19 04:31 Dose: 40 mg Documented by: Escitalopram Oxalate (Lexapro) 20 mg PO DAILY [facility] Last Admin: 09/11/19 04:30 Dose: 20 mg Documented by: Lactobacillus Acidophilus (Acidophilus) 1 tablet PO DAILY [facility] Last Admin: 09/11/19 04:30 Dose: 1 tablet Documented by: Lisinopril (Zestril) 2.5 mg PO DAILY [facility] Last Admin: 09/11/19 04:30 Dose: 2.5 mg Documented by: Melatonin (Melatonin) 10 mg PO QHS [facility] Last Admin: 09/10/19 22:07 Dose: 10 mg Documented by: [facility]) [facility] Admin: 09/11/19 17:58 Dose: 1,000 mg Documented by: Multivitamins/Minerals (Multivitamin With Minerals) [facility] Last Admin: 09/11/19 09:25 Dose: 1 tablet Documented by: Nutritional Formula (Lactose Free) (Glucerna Shake) 120 ml PO 4X/DAY [facility] Last Admin: 09/11/19 17:59 Dose: 120 ml Documented by: Polyethylene Glycol (Miralax) 17 gm PO DAILY PRN PRN Reason: Constipation Senna/Docusate Sodium (Senokot-S, Kathya-Colace) 1 tablet PO BID PRN PRN Reason: Constipation Discharge Diet: No Restrictions Discharge Activity: Return to Normal Activity, May Shower, Use Walker Weight Bearing Status: Weight bearing as tolerated Call your doctor if you observe: Fever of 101 or Higher, Inability to urinate, Inability to have a bowel movement, Shortness of breath, Chest pain, Uncontrolled pain Home Medications: Medications to take at Discharge donepezil 10 mg tablet 10 mg PO QHS 06/26/18 escitalopram oxalate 20 mg tablet 20 mg PO DAILY 06/26/18 Lisinopril 2.5 mg PO DAILY 06/01/19 Multivit-Mins/Iron/Folic/Lycop [Centrum Men's Tablet] 1 ea PO DAILY 06/01/19 Atorvastatin Calcium 10 mg PO QHS 08/26/19 Carbidopa/Levodopa [Carbidopa-Levo ER 25-100 Tab] 1 tab PO BID 08/26/19 Cholecalciferol (VIT D3) [Vitamin D3] 1,000 unit PO DAILY 08/26/19 Metformin HCl 1,000 mg PO BID 08/29/19 Acetaminophen [Tylenol] 1,000 mg PO Q6H PRN PRN tablet 09/11/19 Calcium Carbonate [Tums] 1,000 mg PO QHS tablet 09/11/19 Calcium Carbonate [Tums] 500 mg PO Q4H PRN PRN tablet 09/11/19 Carbidopa/Levodopa 50/200 [Sinemet CR 50/200] 1 tablet PO BIDAC tablet.sa 09/11/19 Lactobacillus Acidophilus [Acidophilus] 1 tab PO DAILY tab 09/11/19 Melatonin 10 mg PO QHS tab 09/11/19 Menthol/Lanolin/Calamine/Znox [Calmoseptine Ointment] 1 applic TOPICAL 06,22 tube 09/11/19 metFORMIN HCl [Glucophage] 1,000 mg PO BIDCM tab 09/11/19 Primary Care Physician: Brendan Morton III, MD [Primary Care Provider] - Please follow up with your Primary Care Physician in: 1 week. Please Follow Up With: Brendan Morton III, MD Disposition: Home Minutes spent on discharge:: 30 Patient Condition:: Stable Medical Necessity - Tobacco Use Smoking Status: Former smoker Tobacco Use: Cigars Meaningful Use Info Meaningful Use Diagnoses (Choose all that apply): None applicable
[2019-09-11] MEDS: Calcium Carbonate 500 MG Tablet PO (19:59)
[2019-09-11] MEDS: Donepezil HCl 10 MG Tablet PO (22:27)
[2019-09-11] MEDS: Atorvastatin Calcium 10 MG Tablet PO (22:27)
[2019-09-11] MEDS: Calcium Carbonate 500 MG Tablet 1000 MG PO (22:27)
[2019-09-11] MEDS: MELATONIN 10 MG TABLET PO (22:29)
--- NOTE | 2019-09-12 00:05 | NURSING ---
Pt's alarming activated. RN entered room to find pt standing at the end of the bed deactivating alarm (turning it off). Pt educated on the importance of calling for assistance and the alarm. Pt agreeable to call for assistance.
[2019-09-12] MEDS: Glucerna Shake 120 ML LIQUID PO ×4 (06:08→21:48)
[2019-09-12] MEDS: Lisinopril 2.5 MG Tablet PO (06:09)
[2019-09-12] MEDS: Escitalopram Oxalate 20 MG Tablet PO (06:09)
[2019-09-12] MEDS: Enoxaparin 40 MG/0.4 ML Syringe SC (06:09)
[2019-09-12] MEDS: Menthol/Lanolin/Calamine/Znox 113 GM Tube 1 APPLIC TOPICAL ×2 (06:11→21:52)
[2019-09-12 06:26] LABS: Bedside Glucose 128 mg/dL (70-110)
[2019-09-12] MEDS: Multivitamins,Ther W-Minerals Tablet 1 TABLET PO (08:02)
[2019-09-12] MEDS: metFORMIN HCl 1,000 MG Tablet 1000 MG PO ×2 (08:02→16:41)
[2019-09-12] MEDS: CARBIDOPA/LEVODOPA CR 50/200 Tablet PO ×2 (08:02→16:41)
--- NOTE | 2019-09-12 10:51 | MDS.RN ---
Pain interview for eduardo 09/14/19 completed.
[2019-09-12 12:40] VITALS: PULSE 77; O2SAT 97
[2019-09-12 15:45] VITALS: BP 118/66; PULSE 76; RESP 18; TEMP 36.6; O2SAT 96
[2019-09-12] MEDS: Calcium Carbonate 500 MG Tablet PO (15:58)
[2019-09-12] MEDS: Donepezil HCl 10 MG Tablet PO (21:49)
[2019-09-12] MEDS: Atorvastatin Calcium 10 MG Tablet PO (21:50)
[2019-09-12] MEDS: Calcium Carbonate 500 MG Tablet 1000 MG PO (21:51)
[2019-09-12] MEDS: MELATONIN 10 MG TABLET PO (21:55)
[2019-09-13 05:54] LABS: Absolute Lymphocyte Count 2.34 X10^3/uL (0.83-4.51); Absolute Neutrophil Count 5.2 X10^3/uL (2.0-7.7); Basophil# 0.08 X10^3/uL; Basophil% 0.9 % (0-1); Eosinophil# 0.19 X10^3/uL; Eosinophils% 2.2 % (0-5); Hematocrit 36.1 % (40-54); Hemoglobin 11.5 g/dL (13.0-16.5); Lymphocyte # 2.34 X10^3/ul (4.0); Lymphocyte % 26.9 % (19-41); Mean Corp Hgb Conc 31.9 g/dL (32-36); Mean Corpuscular Hgb 30.8 pg (27.0-32.0); Mean Corpuscular Volume 96.8 fL (80-94); Mean Platelet Vol. 10.5 fl (6.2-12.0); Monocyte# 0.91 X10^3/uL; Monocyte% 10.5 % (0-10); NRBC Flagged by Analyzer 0 % (0-5); Neutrophil # 5.15 X10^3/uL (2.7-7.7); Neutrophil % 59.2 % (47-70); Platelet Count 230 K/mm3 (150-450); RBC Distribution Width CV 13.2 % (11.6-14.6); Red Blood Count 3.73 M/mm3 (4.6-6.2); White Blood Count 8.7 K/mm3 (4.4-11.0)
[2019-09-13 06:10] LABS: Anion Gap 5 (5-15); BUN 25 mg/dL (7-18); BUN/Creat Ratio 25.1 RATIO (10-20); Calcium,Total 9.2 mg/dL (8.5-10.1); Chloride 102 mmol/L (98-107); EST Glomerular Filtration Rate 78 mL/min (>60); Est Glom Filt Rate - Afr Amer 95 mL/min (>60); Estimated Creatinine Clearance 66.91 ml/min; Glucose 102 mg/dL (74-106); Potassium 4.6 mmol/L (3.5-5.1); Sodium Level 136 mmol/L (136-145)
[2019-09-13 06:30] LABS: Bedside Glucose 106 mg/dL (70-110)
[2019-09-13] MEDS: Glucerna Shake 120 ML LIQUID PO ×3 (06:50→16:41)
[2019-09-13] MEDS: Menthol/Lanolin/Calamine/Znox 113 GM Tube 1 APPLIC TOPICAL ×2 (06:50→20:33)
[2019-09-13] MEDS: Enoxaparin 40 MG/0.4 ML Syringe SC (06:51)
[2019-09-13] MEDS: Lisinopril 2.5 MG Tablet PO (06:51)
[2019-09-13] MEDS: Escitalopram Oxalate 20 MG Tablet PO (06:51)
[2019-09-13 06:56] VITALS: BP 130/67; PULSE 65; RESP 18; O2SAT 95
[2019-09-13] MEDS: CARBIDOPA/LEVODOPA CR 50/200 Tablet PO ×2 (07:55→16:40)
[2019-09-13] MEDS: Multivitamins,Ther W-Minerals Tablet 1 TABLET PO (07:55)
[2019-09-13] MEDS: metFORMIN HCl 1,000 MG Tablet 1000 MG PO ×2 (07:55→16:41)
[2019-09-13] MEDS: Calcium Carbonate 500 MG Tablet PO ×2 (09:07→16:56)
[2019-09-13 15:49] VITALS: BP 123/58; PULSE 74; RESP 18; TEMP 36.4; O2SAT 96
[2019-09-13 20:30] VITALS: BP 115/66; PULSE 95; RESP 18; TEMP 36.9; O2SAT 95
[2019-09-13] MEDS: Atorvastatin Calcium 10 MG Tablet PO (20:33)
[2019-09-13] MEDS: MELATONIN 10 MG TABLET PO (20:33)
[2019-09-13] MEDS: Donepezil HCl 10 MG Tablet PO (20:33)
[2019-09-13] MEDS: Calcium Carbonate 500 MG Tablet 1000 MG PO (20:33)
[2019-09-14] MEDS: Lisinopril 2.5 MG Tablet PO (05:37)
[2019-09-14] MEDS: Enoxaparin 40 MG/0.4 ML Syringe SC (05:37)
[2019-09-14] MEDS: Escitalopram Oxalate 20 MG Tablet PO (05:37)
[2019-09-14] MEDS: Glucerna Shake 120 ML LIQUID PO (05:37)
[2019-09-14] MEDS: Menthol/Lanolin/Calamine/Znox 113 GM Tube 1 APPLIC TOPICAL (05:38)
[2019-09-14 06:31] LABS: Bedside Glucose 157 mg/dL (70-110)
[2019-09-14] MEDS: metFORMIN HCl 1,000 MG Tablet 1000 MG PO (08:07)
[2019-09-14] MEDS: CARBIDOPA/LEVODOPA CR 50/200 Tablet PO (08:07)
[2019-09-14] MEDS: Multivitamins,Ther W-Minerals Tablet 1 TABLET PO (08:07)
[2019-09-14] MEDS: Calcium Carbonate 500 MG Tablet PO (09:59)
[2019-09-14 10:52] VITALS: BP 124/60; PULSE 88; RESP 18; TEMP 36.8; O2SAT 96
== END 2019-09-14 10:10 | disposition home or self-care (01) | DRG 690 ==
PROVIDERS: Admitting Provider Family Medicine Geriatric Medicine; Family Provider Family Medicine; PCP Family Medicine; Referring Provider Family Medicine Geriatric Medicine; Visit Provider Family Medicine Geriatric Medicine
DX: N39.0 Urinary tract infection, site not specified (principal); Z23 Encounter for immunization; F32.9 Major depressive disorder, single episode, unspecified; E78.5 Hyperlipidemia, unspecified; F02.80 Dementia in other diseases classified elsewhere, unspecified severity, without behavioral disturbance, psychotic disturbance, mood disturbance, and anxiety; G20 Parkinson's disease; I10 Essential (primary) hypertension; E11.40 Type 2 diabetes mellitus with diabetic neuropathy, unspecified; Z87.891 Personal history of nicotine dependence; B35.1 Tinea unguium; L84 Corns and callosities; F41.9 Anxiety disorder, unspecified
CPT/HCPCS: 36415; 80048; 81001; 82962; 85025; 87086; 87088; 90732; 92507; 92523; 97110; 97116; 97162; 97166; 97530; 97535; 97802; 97803; G0009

== ENCOUNTER → 2019-10-14 17:25 | Outpatient (CLI) | payer MEDICARE, OTHER, SELFPAY ==
[2019-10-14 18:39] LABS: M R Staph aureus DNA By PCR Negative (Negative); Probe Check PASS; Specimen Processing Control PASS; Staph aureus DNA By PCR NEGATIVE (Negative)
== END ==
PROVIDERS: PCP Family Medicine; Referring Provider Podiatrist; Visit Provider Podiatrist
DX: L97.312 Non-pressure chronic ulcer of right ankle with fat layer exposed (principal); L03.115 Cellulitis of right lower limb
CPT/HCPCS: 87070; 87075; 87077; 87205; 87640

== ENCOUNTER 2019-11-15 11:00 | Outpatient (RCR) | payer MEDICARE, OTHER, SELFPAY ==
--- NOTE | 2019-09-16 10:30 | HP.OTEVAL_ITS ---
Patient's Visit Information ARNAUD AMAYA is a 73 year old M, referred to Occupational Therapy by Handy Archuleta MD, with a diagnosis of PD; Generalized weakness; UTI, PETER. Date of Evaluation: 09/16/19 Occupational Therapist: Aye Humphreys, OTR/L - Subjective Subjective: Arnaud Ortiz arrived with , Belem. He noted he was referred to OT due to generalized weakness. Belem noted he was very dehydrated 08/26/19 and went to TCU for PT/OT. She noted that he has been referred to outpatient due to continued weakness and (i). - ADLs Comments: Noted he feels like he is at his baseline for ADls prior to going into the hospital but weakness is still noted and would like to get back to gym-based tasks. - ROM Shoulder: WFL Elbow: WFL Forearm: WFL Wrist: WFL MP: WFL PIP: WFL DIP: WFL - Strength Shoulder: R 4/5, L 4+/5 Elbow: R 4/5, L 4+/5 Forearm: R 4/5, L 4+/5 Wrist: R 4/5, L 4+/5 Lawyer: flexed R 41, L 40 ; ext R 44, L 44 Lateral Pinch: R 19, L 15 Tripod Pinch: R 12, L 10 Tip-to-Tip Pinch: R 10, L 7 - Sensation Sensation Comments: Denies numbess and tingling. - Cognitive Skills Follows Directions: Yes Short Term Memory Impaired: Yes - Attention Attention: Normal - Balance Static Sitting: G+ Dynamic Sitting: G+ - Nine Hole Peg Right: 39.66 s Left: 37.60 s - Quick DASH-Disab of Arm,Shoulder& Hand Quick DASH Score: 13.6350 - Goals Goal:: Angel to be able to complete additional dexterity techniques to promote increased motor planning and manipulation ability 4/5 trials 80% of the time by d/c. Goal:: Angel to be mod I to complete gym-based HEP to promote increased ergonomic, structure, and motor planning to maintain strength and endurance by end of d/c. Goal:: Angel and Belem to be mod I to understand and have basic knowledge of additional techniques available, a/e, and DME around to help to Angel maintain (i) as well as additional PD resources in the area to promote increased ability to maintain (I) and promote QOL by d/c. - Rehabilitation General Assessment: Thomas Lares', completed OT initial evaluation on this date of 09/16/19. He is s/p discharge from [facility] TCU due to exacerbation of dehydration episode as a result of UTI and PETER. He has significant past medical history of Parkinson Disease as well as diabetes mellitus type 2. Angel would benefit from further skilled OT to promote returning to gym-based exercises to promote sensory integration and motor planning skills as well as understanding of adaptive techniques, compensations, and a/e and DME potentially available if they are to be needed in the future. Rehabilitation Potential: Good - Anticipated Interventions Anticipated Interventions: A/AAROM/PROM, Strengthening, Modalities, Orthoses, Joint Protection/Energy Conservation, Ergonomic Education, Dynamic Sitting Ba marivel, Fine Motor Coord/Ashutosh, Neuro Reeducation, Cognitive Skills, ADL Training, Education re assistive Equipment, Caregiver Training, Home Program Other Interventions: focus on getting gym - based workout program set up as has membership to promote continued strength and HEP. - Visit Plan Frequency: 1x/Week Duration: 2 Weeks General Plan: Angel to complete OT to promote setting up gym-based exercise program to promote HEP for continued strength and endurance needed from ADL/IADLs. He has PT appointment on Monday and would benefit for Let's Get Moving PD group if spots available as PT runs group. Further compensations and adaptation techniques to be discussed with upcoming sessions to promote knowledge of needed compensations if or when needed as PD progresses. TEXT: Thank you for the opportunity to evaluate your patient. For Medicare and Medicare HMO plans, please review the plan of care and approve it. It will need to be FAXED BACK to us at [phone] for Medicare purposes. Please let me know if there are questions or concerns regarding this plan of care. Physician Signature: Date:
--- NOTE | 2019-09-17 15:06 | HP.SP.AD ---
History - History Date of Eval: 09/17/19 Medical Diagnosis (from RX): Parkinsons Date of Onset of Diagnosis: 2017 Previous speech therapy: Yes Results: While in TCU, The patient had speech therapy with good results. Smoking Status: Former smoker Hx Smoking: Yes - QUIT 2012 Hx Smoking Cessation Date: 08/28/12 Hx Tobacco Use: No Hx Smoking Exposure: No - Pain Is pain an issue with your current prescribed condition?: No - Personal Occupation: Retired Right Hearing Abillity: Normal Left Hearing Abillity: Normal Visual Assistive Devices: Glasses Patients Living Arrangements: With Significant Other Patient Allergies - Allergies Allergies codeine Adverse Reaction (Verified 08/26/19 09:50) Nausea/Vom/Diarrhea CLQT - CLQT CLQT Administered: Yes CLQT: Cognitive Linguistic Quick Test (CLQT) is a criterion - referenced assessment designed for adults between the ages of 18 and 89 with known or suspected neurological dysfuntions. The CLQT is to assess strength and weaknesses in five cognitive domains. Severity ratings are within normal limits, mild, moderate, severe deficits. The subtests are as follows: Date: 09/17/19 - Attention Attention: Mild - Memory Memory: Mild - Executive Functions Executive Functions: Severe - Language Language: Mild - Visuospatial Skills Visuospatial Skills: Mild - CLQT Comments Comments Angel was overall able to follow most directions if they were not complex. He was able to participate in conversation. His biggest area of deficit is problem solving and executive functioning. He reported he has word finding issues which bother him. Overall his thinking appears to be mildly slow. Plan - Plan Plan: Speech therapy is warranted for deficits in problem solving, memory and anomia. These deficits are creating difficulty in his participation in his medical appiointments as well as his life if his is not present. - Recommendations Treatment Warranted: Yes - Frequency Frequency: 1x/Week - Prognosis Prognosis: Good - Goals that are Established: Determination:: Goals will be added/modified as deemed necessary and appropriate. Therapy will be discontinued when results of re-evaluation indicate therapy is no longer needed or lack of progress has been documented. - Goal #1-5 Goal #1: Patient will use recall strategies on 4/5 trials to increase recall of daily activities, facts and general information given while in strucutred and unstructured tasks. Goal #2: Patient will use anomia strategies to have less than 1-2 word finding difficulty per session. Goal #3: Patient will complete problem solving, reasoning, and judgement tasks on 4/5 trials on 2/3 consecutive sessions for safety at home and in the community. Education - Patient has Indicated that the Following Identified Educational Needs: None The Patient has indicated that they have no educational or learning abilities that may effect their care.: Yes - Patient Instruction Patient Education: Diagnosis, Treatment Plan, Goals Person Taught: Patient, Family Teaching Method: Discussion Response to teaching: Verbalize understanding
--- NOTE | 2019-09-23 10:53 | HP.PTEVAL ---
Patient's Visit Information JODIE AMAYA is a 73 year old M referred to Physical Therapy by Handy Archuleta MD with a diagnosis of PD, UTI, genalized weakness. Date of Evaluation: 09/23/19 Physical Therapist: RADHA Coulter - Visit Plan Frequency: 2x /Week Duration: 4 Weeks Plan: 2X/ week for 4 weeks for opp arm and leg movements, dual tasking, walking and picking up his feet with gait, compliant sufaces with EC to increase vestibular, LE strength and functional balance with HEP (pt already walks the track almost everyday) - Subjective Findings: Pt reports that he is here to do some PT. He was diagnosed with PD 2 years ago. He is on meds and notices a little difference when he does not take his meds. He reports that he is not having trouble doing anything. Stairs: He uses a railing and goes 2 feet to a step. Sit to stand: able without using his arms. He has not had any falls. He goes to a physical fitness place and walks around the track everyday... 1-2 miles. No freezing episodes. - Objective Gait: walks with no trunk rotation of neck rotation, tends to scuff fett with decrease DF and verrs on occassion. LE MMT: B hip flex 4-/5, B knee ext 4/5, B knee flex 4-/5, R hip abd 3+/5 and L hip abd 4-/5. able to attempt to walk on heels and toes. Sit to stand: able without UE's. FGA: 16. CATSIB: 93. TU.66 seconds - Balance Scores Functional Gait Assessment Score: 16 % Disability: 46.6700 CATSIB Score (Max score 120 seconds): 93 - Goals Goal 1:: I HEP Goal Time Frame: 4-6 Weeks Goal 2:: Increase LE strength by 1/2 muscle grade ( at the time of the eval: LE MMT: B hip flex 4-/5, B knee ext 4/5, B knee flex 4-/5, R hip abd 3+/5 and L hip abd 4-/5. able to attempt to walk on heels and toes) Goal Time Frame: 4-6 Weeks Goal 3:: Be able to do 1 X 10 opp arm and leg activities in sitting without messing up, Goal Time Frame: 4-6 Weeks Goal 4:: Increase balance by increasing his FGA by 4 points to 20 to decrease fall risk Goal Time Frame: 4-6 Weeks Goal 5:: Increase CATSIB by 5 points to 98 to decrease fall risk Goal Time Frame: 4-6 Weeks - Rehabilitation Potential Rehabilitation Potential: Good - Anticipated Interventions Thank you for the opportunity to evaluate your patient. For Medicare and Medicare HMO plans, please review the plan of care and approve it. It will need to be FAXED BACK to us at [phone] for Medicare purposes. For Medicare only, by signing this I certify the plan of care. Please let me know if there are questions or concerns regarding this plan of care. Physician Signature: Date:
--- NOTE | 2019-10-01 14:46 | HP.OTDCSUM ---
HP - OT D/C Summary It has been my pleasure to treat JODIE AMAYA under orders from Handy Archuleta MD, for the diagnosis of PD; Generalized weakness; UTI, PETER for a total of 2 visit(s). Please see the following information for a summary of their discharge status. - Overall Improvement % Improvement: 85 - Objective Objective/Function: Completed new measurements on this date of 10/01/19: Strength: - patent leather sorter flexed R 55, L 35. - patent leather sorter ext R 50, L 40. - lateral R 21, L 15. - tripod R 13, L 12. - pincer R 10, L 10. 9 hole pegboard test: R 27.98 s. L 38.68 s. He has progressedin most measurements and is baseline or (i) with all ADl/IADls tasks at home. Angel's greatest deficits are ST for cognitive deficits and PT for gait deficits. - Goals Patient Goals: Regain Strength, Decrease Pain, Return to Work, Improve Fine Motor Skills, Use Hand/Wrist/Arm Normally Again, Sleep Better, Increase ROM, Be More Independent in ADLS, Resume Former Household Responsibilities (Cooking,Cleaning,Yard, etc.), Resume Hobbies Goal:: Angel to be able to complete additional dexterity techniques to promote increased motor planning and manipulation ability 4/5 trials 80% of the time by d/c. Goal:: Angel to be mod I to complete gym-based HEP to promote increased ergonomic, structure, and motor planning to maintain strength and endurance by end of d/c. Goal:: Angel and Belem to be mod I to understand and have basic knowledge of additional techniques available, a/e, and DME around to help to Angel maintain (i) as well as additional PD resources in the area to promote increased ability to maintain (I) and promote QOL by d/c. - Plan Plan: Angel will be d/c'd at this time. He has been educated on HEp and supports in the community for those who are living with Parkinson Disease. His and him are to look into national and local supports with information provided. Angel is completing all ADL/IALds at [facility] and is basleine for all self-care needs. He is able to complete HEP with and will be d/c'd. He is to call with questions/concerns as they arise. - D/C Information If there are questions or concerns regarding this patient's occupational therapy, please fell free to call me at [phone]. Thank you for the referral of this patient. Sincerely, Aye Humphreys, OTR/L
== END 2019-11-15 19:00 | disposition home or self-care (01) ==
LOC: PT 11:00
PROVIDERS: PCP Family Medicine; Referring Provider Family Medicine Geriatric Medicine; Visit Provider Family Medicine Geriatric Medicine
DX: N39.0 Urinary tract infection, site not specified (principal); N17.9 Acute kidney failure, unspecified; G20 Parkinson's disease; R53.1 Weakness; R41.841 Cognitive communication deficit
CPT/HCPCS: 92507; 92523; 97110; 97161; 97166; 97168; 97530

== ENCOUNTER 2020-05-25 11:00 | Outpatient (RCR) | payer MEDICARE, OTHER, SELFPAY ==
--- NOTE | 2020-03-16 09:55 | HP.PTEVAL ---
Patient's Visit Information JODIE AMAYA is a 74 year old M referred to Physical Therapy by Dr. Brendan Morton III, MD with a diagnosis of PD. Date of Evaluation: 03/16/20 Physical Therapist: RADHA Coulter - Visit Plan Frequency: 2x /Week Duration: 4 Weeks Plan: 2X/ week for 4 weeks and then reassess for dynamic balance, compliant surface balance, functional LE strength such as steps, curbs, toe raises, sit to stands, with HEP - Subjective His is present and reports that he needs to work on his balance and when they go for a walk he has been using his cane. He fell last week (2-3 steps and he fell FW and there was not a railing). He did not hurt himself. His describes that he will be walking and then will have to try and right himself somewhat. He has some trouble where it will take multiple attempts to get out of a chair sometimes. He reports no other strength issues. His tries to keep him up and moving as she knows that it is not good to sit all day. He has been doing his LAQ, punching motions, mini squats behind the chair at home already. - Objective Gait: Walks with decreased stride on the L LE and decreased L arm swing with some veering. Sit to stand: pt stands up using B UE's and very little trunk flexion and almost has retro balance when standing. LE MMT: R hip flex 4-5/ and L hip flex 3+/5 , B knee ext 4/5, B knee flex 4-5, B hip abd 4/5, R hip ext 4-/5 and L 3+/5. Pt is able to walk on his toes but as soon as he walks on his heels he has LOB that he is able to self correct. FGA: 8. CATSIB: 85. Timed Get up and GO: 10.73 - Balance Scores Functional Gait Assessment Score: 8 % Disability: 73.3400 CATSIB Score (Max score 120 seconds): 85 - Goals Goal 1:: I HEP Goal Time Frame: 4-6 Weeks Goal 2:: Increase FGA by 5 points to decrease risk for falls (socre of 8 at time of balance). Goal Time Frame: 4-6 Weeks Goal 3:: Be able to walk 50 feet with head turns without losing balance. Goal Time Frame: 4-6 Weeks Goal 4:: Be able to sit to stand X 10 on the first attempt with no retro LOB Goal Time Frame: 4-6 Weeks Goal 5:: Be able to toe raise with no UE support 2 X 10 without LOB Goal Time Frame: 4-6 Weeks - Rehabilitation Potential Rehabilitation Potential: Good - Anticipated Interventions Patient/Client Instruction: Educate patient on: Condition, Plan of Care For the Purpose of:: To improve muscle performance and motor function, To improve ability to perform ADL's, To increase tolerance to activity/condition/position, To improve performance and independence with ADL's, To decrease level of supervision to perform tasks, To improve ability of physical actions for home/community/work/leisure, To improve gait and locomotor functions, To improve balance, To improve safety with gait Therapeutic Exercise to Include: Strength training, Endurance training, Balance training, Postural training, Flexibilty training, Gait and locomotor training For the Purpose of:: To improve muscle performance and motor function, To improve ability to perform ADL's, To increase tolerance to activity/condition/position, To improve performance and independence with ADL's, To decrease level of supervision to perform tasks, To improve ability of physical actions for home/community/work/leisure, To improve gait and locomotor functions, To increase flexibility/ROM, To improve balance, To improve safety with gait Functional Training to Include: Gait training For the Purpose of:: To improve gait and locomotor functions, To improve safety with gait Thank you for the opportunity to evaluate your patient. For Medicare and Medicare HMO plans, please review the plan of care and approve it. It will need to be FAXED BACK to us at [phone] for Medicare purposes. For Medicare only, by signing this I certify the plan of care. Please let me know if there are questions or concerns regarding this plan of care. Physician Signature: Date:
--- NOTE | 2020-04-20 09:00 | HP.PTREVAL ---
Dr. Brendan Morton III, MD, It has been my pleasure to treat JODIE AMAYA over the last 11 visits for PD. Please see the progress note below for an update on the physical therapy plan of care! Subjective: No falls. Pt feels that PT has helped. He reports that his might still have to hang onto him sometimes when he gets up. He has no dizziness. Objective/Function: Gait: walks with smaller steps, occ veering. Sit to stand X 2 today with no retro LOB. Stairs: up and down recip with 2 hand rails with some retro tendencies and forgets to advance his hands. FGA 10. == he had trouble with vertical and horizontal head turns and needed min A to correct balance at times. ==walking bw to needed min A to right self. ==pt was able to toe raise 2 X 10 without LOB Plan Plan: 2 X/ week for 3 weeks for walking with head turns, changing direction with walking, walking BW, balance with EC (static and dynamic), foam work, functional balance/ strength. Goals Goal 1:: I HEP Goal Time Frame: 4-6 Weeks Goal 2:: Increase FGA by 5 points to decrease risk for falls (socre of 8 at time of balance). Goal Time Frame: 4-6 Weeks Goal Progress: Progressing Goal 3:: Be able to walk 50 feet with head turns without losing balance. Goal Time Frame: 4-6 Weeks Goal Progress: Progressing Goal 4:: Be able to sit to stand X 10 on the first attempt with no retro LOB Goal Time Frame: 4-6 Weeks Goal Progress: Goal Met Goal 5:: Be able to toe raise with no UE support 2 X 10 without LOB Goal Time Frame: 4-6 Weeks Goal Progress: Progressing Anticipated Interventions Patient/Client Instruction: Educate patient on: Condition, Plan of Care For the Purpose of:: To improve muscle performance and motor function, To improve ability to perform ADL's, To increase tolerance to activity/condition/position, To improve performance and independence with ADL's, To decrease level of supervision to perform tasks, To improve ability of physical actions for home/community/work/leisure, To improve gait and locomotor functions, To improve balance, To improve safety with gait Therapeutic Exercise to Include: Strength training, Endurance training, Balance training, Postural training, Flexibilty training, Gait and locomotor training For the Purpose of:: To improve muscle performance and motor function, To improve ability to perform ADL's, To increase tolerance to activity/condition/position, To improve performance and independence with ADL's, To decrease level of supervision to perform tasks, To improve ability of physical actions for home/community/work/leisure, To improve gait and locomotor functions, To increase flexibility/ROM, To improve balance, To improve safety with gait Functional Training to Include: Gait training For the Purpose of:: To improve gait and locomotor functions, To improve safety with gait Please do not hesitate to contact me at [phone] by phone or if you have questions or concerns regarding this new plan of care! Sincerely, Louise Pringle MPT
--- NOTE | 2020-05-11 09:11 | HP.PTREVAL ---
Dr. Brendan Morton III, MD, It has been my pleasure to treat JODIE AMAYA over the last 17 visits for PD. Please see the progress note below for an update on the physical therapy plan of care! Subjective: Pt reports that he is doing better and reports no falls. He reports that he walks at home and does push ups. Objective/Function: FGA 16 (gets dizzy and LOB with walking with vertical and horizontal head turns). Pt is unsteady with walking with his EC and needs min A for correction of balance. Pt has decreased balance with BW walking. Pt is able to sit to stand X 10 with no UE assist. Pt is able to Plan Plan: HEP: seated head and eye movements following fingers horizontal and vertical.... makes him dizzy. Spoke to to make him sit and her to be there when does the exercises. See Pt 2X/ week for 2 weeks for seated and standing and progressing to walking with head and eye vertical and horizontal head movements. Work on BW walking and balance with EC Goals Goal 1:: I HEP Goal Time Frame: 4-6 Weeks Goal Progress: Goal Met Goal 2:: Increase FGA by 5 points to decrease risk for falls (socre of 8 at time of balance). Goal Time Frame: 4-6 Weeks Goal Progress: Goal Met Goal 3:: Be able to walk 50 feet with head turns without losing balance. Goal Time Frame: 4-6 Weeks Goal Progress: Progressing Goal 4:: Be able to sit to stand X 10 on the first attempt with no retro LOB Goal Time Frame: 4-6 Weeks Goal Progress: Goal Met Goal 5:: Be able to walk BW 50 feet with EO and fw 50 with EC with CGA Goal Time Frame: 2-4 Weeks Goal Progress: Progressing Goal 6:: Be able to walk 75 feet with horizontal and vertical head turns without dizziness Goal Time Frame: 2-4 Weeks Anticipated Interventions Patient/Client Instruction: Educate patient on: Condition, Plan of Care For the Purpose of:: To improve muscle performance and motor function, To improve ability to perform ADL's, To increase tolerance to activity/condition/position, To improve performance and independence with ADL's, To decrease level of supervision to perform tasks, To improve ability of physical actions for home/community/work/leisure, To improve gait and locomotor functions, To improve balance, To improve safety with gait Therapeutic Exercise to Include: Strength training, Endurance training, Balance training, Postural training, Flexibilty training, Gait and locomotor training For the Purpose of:: To improve muscle performance and motor function, To improve ability to perform ADL's, To increase tolerance to activity/condition/position, To improve performance and independence with ADL's, To decrease level of supervision to perform tasks, To improve ability of physical actions for home/community/work/leisure, To improve gait and locomotor functions, To increase flexibility/ROM, To improve balance, To improve safety with gait Functional Training to Include: Gait training For the Purpose of:: To improve gait and locomotor functions, To improve safety with gait Please do not hesitate to contact me at [phone] by phone or if you have questions or concerns regarding this new plan of care! Sincerely, Louise Pringle, MPT
--- NOTE | 2020-05-25 11:30 | HP.PTDCSUM ---
It has been my pleasure to treat JODIE AMAYA referred by Dr. Brendan Morton III, MD, with the diagnosis of PD for a total of 21 visit(s). Discharge Date: 05/25/20 Please see the following information for a summary of their discharge status. Subjective: Pt feels that he is doing great. He reports that he does not get dizzy when he turns his head. % Improvement: 60 Objective/Function: FGA: 17. All goals below met. Pt still has occ lob with walking bw. Still a little unsteady on foam with EC... but improved learned weight shift when unsteady with min A at times Goal 1:: I HEP Goal Progress: Goal Met Goal 2:: Increase FGA by 5 points to decrease risk for falls (socre of 8 at time of balance). Goal Progress: Goal Met Goal 3:: Be able to walk 50 feet with head turns without losing balance. Goal Progress: Progressing Goal 4:: Be able to sit to stand X 10 on the first attempt with no retro LOB Goal Progress: Goal Met Goal 5:: Be able to walk BW 50 feet with EO and fw 50 with EC with CGA Goal Progress: Goal Met Goal 6:: Be able to walk 75 feet with horizontal and vertical head turns without dizziness Goal Progress: Goal Met Plan: DC PT to exercising at home and sometimes come in and use the bike through silver sneakers. Discharge Comments: DC PT If there are questions or concerns regarding this patient's physical therapy, please feel free to call me at [phone]. Thank you for the referral of this patient. Sincerely, Louise Pringle, MPT
== END 2020-05-25 19:00 | disposition home or self-care (01) ==
LOC: PT 11:00
PROVIDERS: PCP Family Medicine; Referring Provider Family Medicine; Visit Provider Family Medicine
DX: G20 Parkinson's disease (principal)
CPT/HCPCS: 97110; 97116; 97161; 97530

== ENCOUNTER 2020-11-05 12:56 | Outpatient (RCR) | payer MEDICARE, OTHER, SELFPAY ==
[2020-11-05] MEDS: COVID-19 VACC, MRNA(PFIZER)/PF 30 MCG/0.3 ML SYRINGE IM (09:20)
[2020-11-26] MEDS: COVID-19 VACC, MRNA(PFIZER)/PF 30 MCG/0.3 ML SYRINGE IM (09:10)
== END 2021-02-02 23:59 ==
LOC: IMMUN 12:56
PROVIDERS: PCP Family Medicine; Visit Provider Family Medicine
DX: Z23 Encounter for immunization (principal)
CPT/HCPCS: 0001A; 0002A; 91300

== ENCOUNTER 2021-09-23 09:00 | Outpatient (RCR) | payer MEDICARE, OTHER, SELFPAY ==
[2021-09-07 09:20] VITALS: BP 101/57; PULSE 74; RESP 16; TEMP 35.9; BMI 21.2
--- NOTE | 2021-09-07 14:12 | HP.PCM_ITS ---
History of Present Illness Date of Service: 09/07/21 Chief Complaint: Foot wound History of Wound: 75-year-old male who was referred for evaluation relative to wounds on his feet. He has apparently been under the care of Dr. Cheung, podiatric specialist, recently, though no such medical records are available. According to the patient, and his , the patient was evaluated in Dr. Cheung's office, and the calluses on the plantar aspect of both feet were scraped. Bleeding was encountered. The patient indicates that he was then referred for further evaluation and management at the [facility]. The patient's pre-existing medical problems include diabe dalila mellitus, hyperlipidemia, Parkinson's disease, hypertension, debility, and generalized weakness. [facility] Medical History (Updated 09/07/21 @ 14:[address] Morales Reynolds MD) Callus of foot Diabetes mellitus type 2 in nonobese Diarrhea Hypertension Home Medications donepezil 10 mg tablet 10 mg PO QHS 06/26/18 [History Last Taken 08/25/19] escitalopram oxalate 20 mg tablet 20 mg PO DAILY 06/26/18 [History Last Taken 08/26/19] atorvastatin 10 mg PO QHS 08/26/19 [History Last Taken 08/25/19] carbidopa-levodopa 1 tab PO TID 08/26/19 [History Last Taken 08/26/19] cholecalciferol (vitamin D3) 5,000 unit PO DAILY 08/26/19 [History Last Taken 08/26/19] acidophilus-pectin, citrus 1 tab PO DAILY tab 09/11/19 [Rx Last Taken Unknown] metformin 1,000 mg PO BIDCM tab 09/11/19 [Rx Last Taken Unknown] chlorpheniramine-dextromethorp [Coricidin HBP Cough and Cold] 1 tab PO Q6H PRN 09/07/21 [History Last Taken Unknown] Allergy/AdvReac Type Severity Reaction Status Date / Time codeine AdvReac Nausea/Vom/ Verified 09/07/21 09:37 Diarrhea Family History Father Hypertension Heart disease Surgical History s/p stomach surgery Social History Smoking Status: Former smoker alcohol intake: never Vital Signs Vital Signs Vital Signs: 09/07/21 09:20 Temperature 96.7 F L Temperature Source Temporal Pulse Rate 74 Respiratory Rate 16 Blood Pressure 101/57 L Blood Pressure Mean 71 Blood Pressure Source Monitor Blood Pressure Position Sitting Blood Pressure Location Left Arm Oxygen Delivery Method Room Air Weight Weight: 148 lb Body Mass Index (BMI) 21.2 Physical Exam Const alert, oriented x3, no apparent distress and well nourished Constitutional Narrative: The patient appears to be of relatively normal body habitus. His BMI is 21.2. General Appearance: cooperative, comfortable, well kempt and well developed Orientation / Consciousness: awake, oriented to person, oriented to place and oriented to time HEENT normocephalic and head/scalp atraumatic Head and Scalp: normal to inspection, normocephalic and atraumatic External Ear: external ears normal Eyes PERRL and EOMs intact bilaterally General Eye: normal appearance of both eyes Resp normal respiratory effort, normal air movement, no retractions and no use of accessory muscles Effort and Inspection: able to speak in complete sentences Extremity no calf tenderness Extremity Narrative: No significant swelling or edema are noted in the patient's lower extremities. There are no significant skin changes suggestive of generalized illness. General Extremity: Negative for clubbing or cyanosis Skin Wound Narrative: Inspection of the feet reveals there to be no open wounds or ulcerations. Several large, thickened calluses are noted on the plantar aspect of each foot. These calluses are stained with intra-callus old hemorrhage. There is no sign of infection or cellulitis. Neuro oriented x3, CN's II-XII intact bilaterally and moves all extremities Sensorium / Orientation: awake, alert, oriented to person, oriented to place and oriented to time Psych Appearance: grossly normal and appropriate Attitude: calm Activity / Motor Behavior: appropriate eye contact Speech: normal speech Mood & Affect: euthymic mood Thought Process: normal thought process Thought Content: normal thought content Attention / Concentration: attention grossly intact Debridement Note Debridement Note No debridement was completed: No debridement was completed today Post-Debridement Measurements and Additional Note: Post-Debridement Measurements/Treatment WC - Nurse 1 - General Ulcer Assessment Start: 09/07/21 08:17 Freq: Status: Active Protocol: TAMIR Activity Type Activity Date Activity User E-Sign Co-Sign Detail Recorded Client Recorded Date Recorded By Document 09/07/21 09:20 [facility] [id number] 09/07/21 09:31 [facility] 09/07/21 09:20 WC - Today's Visit Information Type of service Initial Visit Arrival Mode Ambulatory Transfer Assistance None Accompanied by Patient Identification Verified (Name & Yes ) Patient Requires Transmission-Based No Precautions Height and Weight Height 5 ft 10 in Weight 148 lb Weight in Pounds 148.0 lbs Weight Measurement Method Stated by Patient Body Mass Index (BMI) 21.2 BMI Classification Normal BSA - Steve 1.84 Vital Signs Temperature (97.8 F-99.1 F) 96.7 F L Temperature Source Temporal Pulse Rate (60-100) 74 Pulse Location Monitor Respiratory Rate (12-18) 16 Respiratory rate source Observation Oxygen Delivery Method Room Air Blood Pressure (90/60-120/80) 101/57 L Blood Pressure Mean 71 Source Monitor Position Sitting Blood Pressure Location Left Arm History Since Last Visit- (Skip if this is Patient's initial visit) Left Footwear Regular Shoe Right Footwear Regular Shoe Other Footwear orthotic inserts in tennis shoes per tool grinder operator Lower Extremity Assessment/ Foot Assessment/ Toe Nail Assessment Left -Lower Extremity Comment (If N/A Above le assessmt per ) dl fermentation manager -Popliteal Doppler Multiphasic -Posterior Tibial Palpable Yes -Posterior Tibial Doppler Multiphasic -Extremity Color Pale -Hair Growth on Legs Yes -Hair Growth on Toes Yes -Temperature of Extremity Warm -Other Deformity No -Prior Foot Ulcer No -Charcot Joint No -Prior Amputation No -Thick Yes -Discolored Yes -Deformed No -Improper Length & Hygeine No Right -Lower Extremity Comment (If N/A Above le assessmt per ) dl fermentation manager -Posterior Tibial Doppler Multiphasic -Dorsalis Pedis Palpable Yes -Dorsalis Pedis Doppler Multiphasic -Extremity Color Pale -Hair Growth on Legs Yes -Hair Growth on Toes Yes -Temperature of Extremity Warm -Other Deformity No -Prior Foot Ulcer No -Charcot Joint No -Prior Amputation No -Thick Yes -Discolored Yes -Deformed No -Improper Length & Hygeine No Neuropathy Assessment Feet - Top Side and Bottom <Entered> (a) Communication Assessment Preferred language Frisian Information Technology Administrator Required No Able to Read Yes Able to Write Yes Communication Tools None Right Hearing Abillity Normal Left Hearing Abillity Normal Visual Assistive Devices Glasses Teaching Assessment Preferences Verbal,Written, Audio/Visual, Demonstration Barriers to Learning None Readiness To Learn Excellent Willingness to Engage in Self Management High Activies Readiness to Engage in Self Management High Activities Anxiety Level Calm Cooperation Cooperative Perception Coherent Interest in Health Problem Asks Questions Education Importance Acknowledges Need Does Patient Smoke tobacco or other No substances Smoking Status Former smoker Is Patient Diabetic Yes Functional Assessment Recent Decline in Ability to Perform Denies Any Declines Culture/Christian/Telecommunications Switch Technician Cultural/Christian Needs that may affect No Treatment Plan Teaching: Wound Center *Welcome to the Wound Center -Person Taught Patient, Significant Other -Teaching Method Discussion -Response to teaching Verbalize understanding Welcome to the Wound Care Center Frisian (a) 1 - - 2 - - 3 - + 4 - + - Nurse 1 - General Ulcer Measurement Start: 09/07/21 08:17 Freq: Status: Active Protocol: Activity Type Activity Date Activity User E-Sign Co-Sign Detail Recorded Client Recorded Date Recorded By Document 09/07/21 09:20 [facility] [id number] 09/07/21 09:31 [facility] 09/07/21 09:20 Wound Center Nurse 1 #3- R PLANTAR -Combined with other wound No -Current Size (cm) - Length 0.1 -Current Size (cm) - Width 0.1 -Current Size (cm) - Depth 0.1 -Total Square Cm 0.01 -Date of Last Picture (Recall this 09/07/21 field) -Photo Taken Yes -Tunneling No -Undermining/Tunneling No -Circular Undermining No -Wound Margin Distinct, Outline Attached -Texture (Kathya-wound Skin Appearance) Assessed,Callus -Moisture (Kathya-wound Skin Appearance) Assessed,Dry/ Scaly -Color (Kathya-wound Skin Appearance) Assessed -Temperature (Kathya-wound Skin No Abnormality Appearance) (Pt Warm) -Tenderness on Palpation (Kathya-wound No Skin Appearance) -Ulcer Cleansing Rinsed/ Irrigated with Saline -Foul Odor after Cleansing No -Anesthetic Used 5% Lidocaine Gel #2- R 1ST MET HEAD -Combined with other wound No -Current Size (cm) - Length 0.1 -Current Size (cm) - Width 0.1 -Current Size (cm) - Depth 0.1 -Total Square Cm 0.01 -Date of Last Picture (Recall this 09/07/21 field) -Photo Taken Yes -Tunneling No -Undermining/Tunneling No -Circular Undermining No -Exudate Amt None Present -Texture (Kathya-wound Skin Appearance) Callus -Moisture (Kathya-wound Skin Appearance) Assessed,Dry/ Scaly -Color (Kathya-wound Skin Appearance) Assessed -Temperature (Kathya-wound Skin No Abnormality Appearance) (Pt Warm) -Tenderness on Palpation (Kathya-wound No Skin Appearance) -Ulcer Cleansing Rinsed/ Irrigated with Saline -Foul Odor after Cleansing No -Anesthetic Used 5% Lidocaine Gel #1- L PLANTAR -Combined with other wound No -Current Size (cm) - Length 0.1 -Current Size (cm) - Width 0.1 -Current Size (cm) - Depth 0.1 -Total Square Cm 0.01 -Date of Last Picture (Recall this 09/07/21 field) -Photo Taken Yes -Tunneling No -Undermining/Tunneling No -Circular Undermining No -Exudate Amt None Present -Granulation Amt None Present (0 %) -Texture (Kathya-wound Skin Appearance) Assessed,Callus -Moisture (Kathya-wound Skin Appearance) Assessed,Dry/ Scaly -Color (Kathya-wound Skin Appearance) Assessed -Temperature (Kathya-wound Skin No Abnormality Appearance) (Pt Warm) -Tenderness on Palpation (Kathya-wound No Skin Appearance) -Ulcer Cleansing Rinsed/ Irrigated with Saline -Foul Odor after Cleansing No -Anesthetic Used 5% Lidocaine Gel Lower Limb Edema Present No Right Calf (cm) 33.2 Right Ankle (cm) 19 Left Calf (cm) 32.5 Left Ankle (cm) 19 WC - Nurse 3 - General Ulcer D/C NN Start: 09/07/21 08:17 Freq: Status: Active Protocol: Activity Type Activity Date Activity User E-Sign Co-Sign Detail Recorded Client Recorded Date Recorded By Document 09/07/21 10:16 [facility] [id number] 09/07/21 10:17 [facility] 09/07/21 10:16 Wound Care Nurse 3 #3- R PLANTAR -Ulcer Cleansing Rinsed/ Irrigated with Saline -Foul Odor after Cleansing No -Primary Dressing Applied C Hydrogel ($) -Primary Dressing Covered/Secured with Dry Gauze, Secured with Tape #2- R 1ST MET HEAD -Ulcer Cleansing Rinsed/ Irrigated with Saline -Foul Odor after Cleansing No -Other Dressing HYDROGEL -Primary Dressing Covered/Secured with Dry Gauze, Secured with Tape #1- L PLANTAR -Ulcer Cleansing Rinsed/ Irrigated with Saline -Foul Odor after Cleansing No -Other Dressing HYDROGEL -Primary Dressing Covered/Secured with Dry Gauze, Secured with Tape Treatment Response Procedure Tolerated Well Pain Scale: 0-10 Numeric Is Patient Pain Free? Yes WC - Visit Discharge Discharge Condition Stable Ambulatory Status Ambulatory Transportation Private Auto Accompanied by Assessment/Plan Assessment/Plan (1) Callus of foot: CODE(S): L84 - Corns and callosities (2) Diabetes mellitus, type II: CODE(S): E11.9 - Type 2 diabetes mellitus without complications (3) Generalized weakness: CODE(S): R53.1 - Weakness (4) HLD (hyperlipidemia): CODE(S): E78.5 - Hyperlipidemia, unspecified (5) Parkinsons disease: CODE(S): G20 - Parkinson's disease (6) Parkinson's disease dementia: CODE(S): G20 - Parkinson's disease; F02.80 - Dementia in other diseases classified elsewhere without behavioral disturbance QUALIFIERS: Qualified Code(s): F02.80 - Dementia in other diseases classified elsewhere without behavioral disturbance (7) Debility: CODE(S): R53.81 - Other malaise (8) Diabetes mellitus type 2 in nonobese: CODE(S): E11.9 - Type 2 diabetes mellitus without complications (9) Hypertension: CODE(S): I10 - Essential (primary) hypertension PLAN: This is a 75-year-old male with pre-existing conditions which include Parkinson's disease, Parkinson's dementia, hypertension, hyperlipidemia, and diabetes mellitus. He also suffers from generalized weakness and debility. He was referred due to wounds involving his feet. However, physical examination reveals no such open wounds or ulcerations on either foot. Rather, the patient has several large, thickened calluses on the plantar aspect of each foot, which are stained and discolored with old, intra-callus hemorrhage. There is no sign of infection or cellulitis. It has been recommended that the patient follow-up with his established tool grinder operator, Dr. Cheung, or one of her associates. In addition, the patient and his have been thoroughly counseled as to the appropriate diabetic foot care. It has been recommended that his toenails are trimmed on a serial basis by a podiatric specialist. Frequent inspection of the feet and appropriately-fitted footwear have been recommended. The patient has been using collagen hydrogel topically to the calluses, which is recommended to continue, and may subsequently facilitate the mechanical elimination of the calluses. The patient is to follow-up with a tool grinder operator within the next several weeks. Total time: 55 minutes
[2021-09-23 08:49] VITALS: BP 120/69; PULSE 87; RESP 16; BMI 21.2
--- NOTE | 2021-09-23 09:49 | PCM.WC.PN ---
History of Present Illness Date of Service: 09/23/21 Chief Complaint: Foot wound History of Wound: 75-year-old male who was referred for evaluation relative to wounds on his feet. He has apparently been under the care of Dr. Cheung, podiatric specialist, recently, though no such medical records are available. According to the patient, and his , the patient was evaluated in Dr. Cheung's office, and the calluses on the plantar aspect of both feet were scraped. Bleeding was encountered. The patient indicates that he was then referred for further evaluation and management at the [facility]. The patient's pre-existing medical problems include diabetes mellitus, hyperlipidemia, Parkinson's disease, hypertension, debility, and generalized weakness. Subjective Subjective 75-year-old male who was referred for evaluation relative to wounds on his feet. He has been under the care of Dr. Cheung, podiatric specialist, in her office for callus debridement and diabetic foot check. The patient had debridement of bilateral foot calluses performed. states they have been applying hydrogel to the callus tissue daily and wrapping with a dressing. states he also wears diabetic shoes with inserts that she changes every 3 to 4 months. The patient's pre-existing medical problems include diabetes mellitus with peripheral polyneuropathy, hyperlipidemia, Parkinson's disease, hypertension, debility, and generalized weakness. Objective Data Objective Data Vital Signs: Vital Signs Temp Pulse Resp BP 96.7 F L 87 16 120/69 09/07/21 09:20 09/23/21 08:49 09/23/21 08:49 09/23/21 08:49 Oxygen Delivery Method Room Air Weight: 67.132 kg Body Mass Index (BMI) 21.2 Physical Exam Const alert, oriented x3 and no apparent distress General Appearance: cooperative and comfortable HEENT normocephalic Eyes General Eye: normal appearance of both eyes Neck General: normal visual inspection Lymph Lymphatic: no lymphadenopathy noted and no lymphedema noted Chest inspection of chest normal Resp normal respiratory effort Cardio regular rate and regular rhythm Back/Spine normal to inspection Extremity Peripheral Pulses: Yes posterior tibial pulses present and dorsalis pedis pulses present Skin no rashes or lesions noted Wound Narrative: Subfirst metatarsal hyperkeratotic tissue and Sub fourth metatarsal head hyperkeratotic tissue right foot; subthird metatarsal head hyperkeratotic tissue left foot Neuro Motor Exam: strength 5/5 throughout and clonus absent Debridement Note Debridement Note Wound debrided: Subfifth and subfirst metatarsal head right foot, subthird metatarsal head Wound Grade/Stage: Owusu stage I Type of Debridement: Excisional debridement Anesthesia Used: 4% Lidocaine Solution Depth: in the subcutaneous layer Percentage of wound debrided: 100 Instrument Used: #15 blade Tissue Removed: Hyperkeratotic, macerated tissue, biofilm and slough Severity: Fat Layer Exposed Amount of bleeding with debridement: Mild Bleeding Controlled with: Pressure and Silver Nitrate (Left foot wound) Patient tolerated procedure: Patient tolerated procedure well Post-Debridement Measurements and Additional Note: Post-Debridement Measurements/Treatment - Nurse 1 - General Ulcer Assessment Start: 09/07/21 08:17 Freq: Status: Active Protocol: TAMIR Activity Type Activity Date Activity User E-Sign Co-Sign Detail Recorded Client Recorded Date Recorded By Document 09/07/21 09:20 [facility] [id number] 09/07/21 09:31 [facility] Document 09/23/21 08:49 [id number] 09/23/21 09:00 09/07/21 09/23/21 09:20 08:49 - Today's Visit Information Type of service Initial Visit Follow-up Visit (Physician/[employer] 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 ) Arrival Mode Ambulatory Ambulatory Transfer Assistance None Accompanied by Patient Identification Verified (Name & Yes Yes ) Patient Requires Transmission-Based No No Precautions Finger Stick Blood Sugar(mg/dl) (if 125 indicated): Blood Sugar Stated by Patient Height and Weight Height 5 ft 10 in Weight 67.132 kg Weight in Pounds 148.0 lbs Weight Measurement Method Stated by Patient Body Mass Index (BMI) 21.2 21.2 BMI Classification Normal Normal BSA - Steve 1.84 Vital Signs Temperature (97.8 F-99.1 F) 96.7 F L Temperature Source Temporal Pulse Rate (60-100) 74 87 Pulse Location Monitor Monitor Respiratory Rate (12-18) 16 16 Respiratory rate source Observation Observation Oxygen Delivery Method Room Air Blood Pressure (90/60-120/80) 101/57 L 120/69 Blood Pressure Mean (mm Hg) 71 86 Source Monitor Monitor Position Sitting Semi-Fowlers Blood Pressure Location Left Arm Left Arm Have you changed medications since your No last visit? Any new allergies or adverse reactions No Had a fall/change in ADL's that may No increase risk of falls Signs or symptoms of abuse and/or No neglect since last visit Have you been in the hospital since your No last visit? Has dressing in place as prescribed Yes Has compression in place as prescribed N/A Has offloadiing in place as prescribed No Experienced any changes in pain level or No management History Since Last Visit- (Skip if this is Patient's initial visit) Left Footwear Regular Shoe Regular Shoe Right Footwear Regular Shoe Regular Shoe Other Footwear orthotic inserts in tennis shoes per photographic platemaker Pain Scale: 0-10 Numeric Is Patient Pain Free? Yes Lower Extremity Assessment/ Foot Assessment/ Toe Nail Assessment Left -Lower Extremity Comment (If N/A Above le assessmt per ) dl cota -Popliteal Doppler Multiphasic -Posterior Tibial Palpable Yes -Posterior Tibial Doppler Multiphasic -Extremity Color Pale -Hair Growth on Legs Yes -Hair Growth on Toes Yes -Temperature of Extremity Warm -Other Deformity No -Prior Foot Ulcer No -Charcot Joint No -Prior Amputation No -Thick Yes -Discolored Yes -Deformed No -Improper Length & Hygeine No Right -Lower Extremity Comment (If N/A Above le assessmt per ) dl cota -Posterior Tibial Doppler Multiphasic -Dorsalis Pedis Palpable Yes -Dorsalis Pedis Doppler Multiphasic -Extremity Color Pale -Hair Growth on Legs Yes -Hair Growth on Toes Yes -Temperature of Extremity Warm -Other Deformity No -Prior Foot Ulcer No -Charcot Joint No -Prior Amputation No -Thick Yes -Discolored Yes -Deformed No -Improper Length & Hygeine No Neuropathy Assessment Feet - Top Side and Bottom <Entered> (a) Communication Assessment Preferred language Belarusian Explosive Ordnance Technician Required No Able to Read Yes Able to Write Yes Communication Tools None Right Hearing Abillity Normal Left Hearing Abillity Normal Visual Assistive Devices Glasses Teaching Assessment Preferences Verbal,Written, Audio/Visual, Demonstration Barriers to Learning None Readiness To Learn Excellent Willingness to Engage in Self Management High Activies Readiness to Engage in Self Management High Activities Anxiety Level Calm Cooperation Cooperative Perception Coherent Interest in Health Problem Asks Questions Education Importance Acknowledges Need Does Patient Smoke tobacco or other No substances Smoking Status Former smoker Is Patient Diabetic Yes Functional Assessment Recent Decline in Ability to Perform Denies Any Declines Culture/Buddhist/Varnisher Cultural/Buddhist Needs that may affect No Treatment Plan Teaching: Wound Center *Welcome to the Wound Center -Person Taught Patient, Significant Other -Teaching Method Discussion -Response to teaching Verbalize understanding Welcome to the Wound Care Center Belarusian (a) 1 - - 2 - - 3 - + 4 - + WC - Nurse 1 - General Ulcer Measurement Start: 09/07/21 08:17 Freq: Status: Active Protocol: Activity Type Activity Date Activity User E-Sign Co-Sign Detail Recorded Client Recorded Date Recorded By Document 09/07/21 09:20 [facility] [id number] 09/07/21 09:31 [facility] Document 09/23/21 08:49 [id number] 09/23/21 09:00 09/07/21 09/23/21 09:20 08:49 Wound Center Nurse 1 #3- R PLANTAR -Combined with other wound No No -Current Size (cm) - Length 0.1 0.1 -Current Size (cm) - Width 0.1 0.1 -Current Size (cm) - Depth 0.1 0.1 -Total Square Cm 0.01 0.01 -Date of Last Picture (Recall this 09/07/21 field) -Photo Taken Yes No -Epithelialization None Present -Tunneling No No -Undermining/Tunneling No No -Circular Undermining No No -Exudate Amt None Present -Wound Margin Distinct, Indistinct, Non Outline -Visible Attached -Granulation Amt None Present (0 %) -Slough/Fibrin Yes -Necrosis Amt Large (67-100%) -Necrotic Tissue Type Adherent Slough -Structure Exposed N/A -Texture (Kathya-wound Skin Appearance) Assessed,Callus Assessed,Callus -Moisture (Kathya-wound Skin Appearance) Assessed,Dry/ Dry/Scaly Scaly -Color (Kathya-wound Skin Appearance) Assessed Assessed -Temperature (Kathya-wound Skin No Abnormality No Abnormality Appearance) (Pt Warm) (Pt Warm) -Tenderness on Palpation (Kathya-wound No No Skin Appearance) -Ulcer Cleansing Rinsed/ Rinsed/ Irrigated with Irrigated with Saline Saline -Foul Odor after Cleansing No No -Anesthetic Used 5% Lidocaine 5% Lidocaine Gel Gel #2- R 1ST MET HEAD -Combined with other wound No No -Current Size (cm) - Length 0.1 0.1 -Current Size (cm) - Width 0.1 0.1 -Current Size (cm) - Depth 0.1 0.1 -Total Square Cm 0.01 0.01 -Date of Last Picture (Recall this 09/07/21 field) -Photo Taken Yes No -Epithelialization None Present -Tunneling No No -Undermining/Tunneling No No -Circular Undermining No No -Exudate Amt None Present None Present -Wound Margin Indistinct, Non -Visible -Granulation Amt None Present (0 %) -Slough/Fibrin Yes -Necrosis Amt Large (67-100%) -Necrotic Tissue Type Adherent Slough -Structure Exposed N/A -Texture (Kathya-wound Skin Appearance) Callus Assessed,Callus -Moisture (Kathya-wound Skin Appearance) Assessed,Dry/ Assessed,Dry/ Scaly Scaly -Color (Kathya-wound Skin Appearance) Assessed -Temperature (Kathya-wound Skin No Abnormality No Abnormality Appearance) (Pt Warm) (Pt Warm) -Tenderness on Palpation (Kathya-wound No No Skin Appearance) -Ulcer Cleansing Rinsed/ Rinsed/ Irrigated with Irrigated with Saline Saline -Foul Odor after Cleansing No No -Anesthetic Used 5% Lidocaine 5% Lidocaine Gel Gel #1- L PLANTAR -Combined with other wound No No -Current Size (cm) - Length 0.1 0.1 -Current Size (cm) - Width 0.1 0.1 -Current Size (cm) - Depth 0.1 0.1 -Total Square Cm 0.01 0.01 -Date of Last Picture (Recall this 09/07/21 field) -Photo Taken Yes No -Epithelialization None Present -Tunneling No No -Undermining/Tunneling No No -Circular Undermining No No -Exudate Amt None Present None Present -Wound Margin Indistinct, Non -Visible -Granulation Amt None Present (0 None Present (0 %) %) -Slough/Fibrin Yes -Necrosis Amt Large (67-100%) -Necrotic Tissue Type Adherent Slough -Structure Exposed N/A -Texture (Kathya-wound Skin Appearance) Assessed,Callus Assessed,Callus -Moisture (Kathya-wound Skin Appearance) Assessed,Dry/ Assessed,Dry/ Scaly Scaly -Color (Kathya-wound Skin Appearance) Assessed Assessed -Temperature (Kathya-wound Skin No Abnormality No Abnormality Appearance) (Pt Warm) (Pt Warm) -Tenderness on Palpation (Kathya-wound No No Skin Appearance) -Ulcer Cleansing Rinsed/ Rinsed/ Irrigated with Irrigated with Saline Saline -Foul Odor after Cleansing No No -Anesthetic Used 5% Lidocaine 5% Lidocaine Gel Gel Lower Limb Edema Present No No Right Calf (cm) 33.2 Right Ankle (cm) 19 Left Calf (cm) 32.5 Left Ankle (cm) 19 WC - Nurse 3 - General Ulcer D/C NN Start: 09/07/21 08:17 Freq: Status: Active Protocol: Activity Type Activity Date Activity User E-Sign Co-Sign Detail Recorded Client Recorded Date Recorded By Document 09/07/21 10:16 [facility] [id number] 09/07/21 10:17 [facility] 09/07/21 10:16 Wound Care Nurse 3 #3- R PLANTAR -Ulcer Cleansing Rinsed/ Irrigated with Saline -Foul Odor after Cleansing No -Primary Dressing Applied C Hydrogel ($) -Primary Dressing Covered/Secured with Dry Gauze, Secured with Tape #2- R 1ST MET HEAD -Ulcer Cleansing Rinsed/ Irrigated with Saline -Foul Odor after Cleansing No -Other Dressing HYDROGEL -Primary Dressing Covered/Secured with Dry Gauze, Secured with Tape #1- L PLANTAR -Ulcer Cleansing Rinsed/ Irrigated with Saline -Foul Odor after Cleansing No -Other Dressing HYDROGEL -Primary Dressing Covered/Secured with Dry Gauze, Secured with Tape Treatment Response Procedure Tolerated Well Pain Scale: 0-10 Numeric Is Patient Pain Free? Yes WC - Visit Discharge Discharge Condition Stable Ambulatory Status Ambulatory Transportation Private Auto Accompanied by Assessment/Plan Assessment/Plan (1) Callus of foot: CODE(S): L84 - Corns and callosities (2) Acute renal insufficiency: CODE(S): N28.9 - Disorder of kidney and ureter, unspecified (3) Diabetes mellitus, type II: CODE(S): E11.9 - Type 2 diabetes mellitus without complications (4) Parkinsons disease: CODE(S): G20 - Parkinson's disease (5) Hypertension: CODE(S): I10 - Essential (primary) hypertension (6) Non-pressure chronic ulcer of other part of left foot with fat layer exposed: CODE(S): L97.522 - Non-pressure chronic ulcer of other part of left foot with fat layer exposed (7) Non-pressure chronic ulcer of other part of right foot with fat layer exposed: CODE(S): L97.512 - Non-pressure chronic ulcer of other part of right foot with fat layer exposed (8) Generalized weakness: CODE(S): R53.1 - Weakness (9) HLD (hyperlipidemia): CODE(S): E78.5 - Hyperlipidemia, unspecified PLAN: This is a 75-year-old male who presents to the wound care under for follow-up of bilateral foot callus with suspected wound of both feet complicated by diabetes mellitus type 2 with peripheral polyneuropathy, Parkinson's disease, acute renal insufficiency, hypertension, generalized weakness, and hyperlipidemia. His states they were previously seen in the wound care center by Dr. Reynolds who was applying and recommending continued use of hydrogel for debridement of the callus tissue. states they have been dressing both feet with wraps and wearing his diabetic shoes with inserts. Both feet were examined today and debridement of all hyperkeratotic callus tissue was performed with a #15 blade without incident. Right foot subfourth metatarsal hyperkeratotic tissue was debrided with no underlying wound. The site is stable with no erythema, no purulent drainage, malodor, red streaking, or other localized signs of infection. I recommended applying urea 42% cream to this callus site twice a day to aid in debridement of the callus tissue. Subfirst metatarsal hyperkeratotic tissue of the right foot was debrided sharply with a #15 blade without incident. Upon debridement of the hyperkeratotic tissue maceration tissue was encountered secondary to serous wound fluid. Macerated tissue was debrided to the subcutaneous tissue where a small ulceration was encountered. Ulceration site demonstrated granular bed with no localized erythema, no purulent drainage, no malodor, no red streaking, or other localized signs of infection. Subthird metatarsal hyperkeratotic tissue of the left foot was sharply debrided with a #15 blade without incident. Upon debridement of the hyperkeratotic tissue maceration tissue was encountered secondary to serous wound fluid. Macerated tissue was debrided to the subcutaneous tissue where a small ulceration was encountered. Ulceration site demonstrated no localized erythema, no purulent drainage, no malodor, no red streaking, or other localized signs of infection. Jaja was applied to these 2 ulceration sites with dry sterile dressing. Patient to continue to wear his diabetic shoes with diabetic inserts for proper offloading of the sites at all times. I instructed this patient to never go barefoot due to his neuropathy and wounds. I discussed with patient and how callus tissue can degenerate into a wound with continued weight bearing and shear forces. I instructed the patient to remain in his diabetic shoes with his inserts for proper offloading and not his sandals or house slippers. Patient and are instructed to check his feet daily for any signs of wounds or pressure sites. I discussed localized signs of infection with patient and his today and instructed them if they notice any increased redness around the wounds, purulent drainage, malodor, or red streaking up the leg to go the to Emergency Room for treatment as these are signs of progressing infection. and patient voiced understanding of this. Jaja along with dressings to be changed daily. I reviewed and discussed his case today. Debridement was performed today as noted in the clinical panel to all of the ulcer sites. The following work up and care recommendations were made: Dressing: Jaja dry sterile dressing to the subfirst metatarsal wound right foot and subthird metatarsal wound left foot Wash: Soap and water Tissue growth optimization: Jaja Offload: Diabetic shoe with inserts Vascular: Palpable pedal pulses Edema: No edema Infection: No localized signs of infection Pain: Patient may take over the counter Tylenol Host factors: Diabetes mellitus type 2 with peripheral polyneuropathy, proper glycemic control and offloading with diabetic shoes. I answered all the patient's questions. To return to the wound healing center in 1 week or call sooner if the patient has any questions or concerns. The problems addressed require a low medical decision making level which includes two or more minor problems, a stable chronic illness, or an acute uncomplicated illness or injury. The medical decision making level is low. There is noted low risk of morbidity after considering this treatment plan and diagnostic data. Note: [employer] speech recognition k9 handler software was used to create portions of this document. Sound-alike and misspelled words, as well as other k9 handler errors may be contained in the documentation.
== END 2021-09-27 23:59 ==
LOC: WC 09:00
PROVIDERS: PCP Nurse Practitioner Family; Visit Provider Student in an Organized Health Care Education/Training Program
DX: E11.621 Type 2 diabetes mellitus with foot ulcer (principal); G20 Parkinson's disease; L97.512 Non-pressure chronic ulcer of other part of right foot with fat layer exposed; L97.522 Non-pressure chronic ulcer of other part of left foot with fat layer exposed; G31.83 Neurocognitive disorder with Lewy bodies; E11.42 Type 2 diabetes mellitus with diabetic polyneuropathy; I10 Essential (primary) hypertension; E78.5 Hyperlipidemia, unspecified; Z87.891 Personal history of nicotine dependence; R53.1 Weakness; R53.81 Other malaise; N28.9 Disorder of kidney and ureter, unspecified; L84 Corns and callosities; Z79.899 Other long term (current) drug therapy; Z79.84 Long term (current) use of oral hypoglycemic drugs
CPT/HCPCS: 11042; 99213; G0463

== ENCOUNTER 2021-10-21 09:00 | Outpatient (RCR) | payer MEDICARE, OTHER, SELFPAY ==
[2021-09-28 00:09] VITALS: BP 120/69; PULSE 87; RESP 16; TEMP 35.9; BMI 21.2
[2021-10-07 08:59] VITALS: BP 107/62; PULSE 69; RESP 18; TEMP 36.3; BMI 21.2
--- NOTE | 2021-10-07 09:22 | PN.PCM_ITS ---
History of Present Illness Date of Service: 10/07/21 Chief Complaint: Foot wound History of Wound: 75-year-old male who was referred for evaluation relative to wounds on his feet. He has apparently been under the care of Dr. Cheung, podiatric specialist, recently, though no such medical records are available. According to the patient, and his , the patient was evaluated in Dr. Cheung's office, and the calluses on the plantar aspect of both feet were scraped. Bleeding was encountered. The patient indicates that he was then referred for further evaluation and management at the [facility]. The patient's pre-existing medical problems include diabe dalila mellitus, hyperlipidemia, Parkinson's disease, hypertension, debility, and generalized weakness. 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 He denies any nausea, vomiting, fever, chills, or shortness of breath. He is accompanied by his today. They state they have been performing the dressing changes as instructed applying Jaja to both wound sites and offloading with his inserts. Objective Data Objective Data Vital Signs: Vital Signs Temp Pulse Resp BP 97.3 F L 69 18 107/62 10/07/21 08:59 10/07/21 08:59 10/07/21 08:59 10/07/21 08:59 Weight: 67.132 kg Body Mass Index (BMI) 21.2 Physical Exam Const alert, oriented x3 and no apparent distress General Appearance: cooperative and comfortable HEENT normocephalic Eyes General Eye: normal appearance of both eyes Neck General: normal visual inspection Lymph Lymphatic: no lymphadenopathy noted and no lymphedema noted Chest inspection of chest normal Resp normal respiratory effort Cardio regular rate and regular rhythm Extremity Peripheral Pulses: Yes posterior tibial pulses present bilateral and dorsalis pedis pulses present bilateral Skin no rashes or lesions noted General Skin Exam: turgor normal Neuro Motor Exam: strength 5/5 throughout and clonus absent Debridement Note Debridement Note Wound debrided: Left subfirst metatarsal Laterality: Left Wound Grade/Stage: Owusu stage I Type of Debridement: Excisional debridement Anesthesia Used: 5% Lidocaine Gel Depth: Down to and including healthy tissue and in the subcutaneous layer Percentage of wound debrided: 100 Instrument Used: #15 blade Tissue Removed: Hyperkeratotic, macerated tissue, biofilm and slough Severity: Fat Layer Exposed Amount of bleeding with debridement: Mild Bleeding Controlled with: Pressure Patient tolerated procedure: Patient tolerated procedure well Debridement Free Text: Wound debrided: Subfifth and subthird metatarsal head Wound Grade/Stage: Owusu stage I Type of Debridement: Selective debridement Anesthesia Used: None Depth: Normal healthy tissue Percentage of wound debrided: 100 Instrument Used: #15 blade Tissue Removed: Hyperkeratotic tissue/callus tissue Severity: None Amount of bleeding with debridement: None Bleeding Controlled with: None Patient tolerated procedure: Patient tolerated procedure well Post-Debridement Measurements and Additional Note: Post-Debridement Measurements/Treatment - Nurse 1 - General Ulcer Assessment Start: 10/07/21 08:59 Freq: Status: Active Protocol: REECE.JD Activity Type Activity Date Activity User E-Sign Co-Sign Detail Recorded Client Recorded Date Recorded By Document 10/07/21 08:59 [id number] 10/07/21 09:04 JODY 10/07/21 08:59 WC - Today's Visit Information Type of service Follow-up Visit (Physician/DRILL INSTRUCTOR ) Arrival Mode Ambulatory Transfer Assistance None Patient Identification Verified (Name & Yes ) Patient Requires Transmission-Based No Precautions Safety Precautions NA Height and Weight Body Mass Index (BMI) 21.2 BMI Classification Normal Vital Signs Temperature (97.8 F-99.1 F) 97.3 F L Temperature Source Temporal Pulse Rate (60-100) 69 Respiratory Rate (12-18) 18 Blood Pressure (90/60-120/80) 107/62 Blood Pressure Mean (mm Hg) 77 History Since Last Visit- (Skip if this is Patient's initial visit) Have you changed medications since your No last visit? Any new allergies or adverse reactions No Had a fall/change in ADL's that may No increase risk of falls Signs or symptoms of abuse and/or No neglect since last visit Have you been in the hospital since your No last visit? Has dressing in place as prescribed Yes Has compression in place as prescribed N/A Has offloadiing in place as prescribed N/A Experienced any changes in pain level or No management Pain Scale: 0-10 Numeric Is Patient Pain Free? Yes - Nurse 1 - General Ulcer Measurement Start: 10/07/21 08:59 Freq: Status: Active Protocol: Activity Type Activity Date Activity User E-Sign Co-Sign Detail Recorded Client Recorded Date Recorded By Document 10/07/21 08:59 PL [id number] 10/07/21 09:04 PL 10/07/21 08:59 Wound Center Nurse 1 #3- R PLANTAR -Combined with other wound No -Current Size (cm) - Length 0.1 -Current Size (cm) - Width 0.1 -Current Size (cm) - Depth 0.1 -Total Square Cm 0.01 -Epithelialization None Present -Tunneling No -Undermining/Tunneling No -Circular Undermining No -Classification - Thickness Full Thickness with Exposed Support Structure -Exudate Type Serosanguineous -Wound Margin Thickened -Granulation Amt None Present (0 %) -Slough/Fibrin Yes -Necrosis Amt Large (67-100%) -Necrotic Tissue Type Eschar -Texture (Kathya-wound Skin Appearance) Callus -Moisture (Kathya-wound Skin Appearance) No Abnormality -Color (Kathya-wound Skin Appearance) No Abnormality -Temperature (Kathya-wound Skin No Abnormality Appearance) (Pt Warm) -Ulcer Cleansing Rinsed/ Irrigated with Saline -Anesthetic Used 5% Lidocaine Gel #2- R 1ST MET HEAD -Current Size (cm) - Length 0.1 -Current Size (cm) - Width 0.1 -Current Size (cm) - Depth 0.1 -Total Square Cm 0.01 -Epithelialization None Present -Tunneling No -Undermining/Tunneling No -Circular Undermining No -Classification - Thickness Partial Thickness -Exudate Amt Medium -Exudate Type Serosanguineous -Wound Margin Thickened -Slough/Fibrin Yes -Necrosis Amt Small (1-33%) -Necrotic Tissue Type Eschar -Texture (Kathya-wound Skin Appearance) Callus Assessment/Plan Assessment/Plan (1) Non-pressure chronic ulcer of other part of right foot with fat layer exposed: CODE(S): L97.512 - Non-pressure chronic ulcer of other part of right foot with fat layer exposed (2) Non-pressure chronic ulcer of other part of left foot with fat layer exposed: CODE(S): L97.522 - Non-pressure chronic ulcer of other part of left foot with fat layer exposed (3) Callus of foot: CODE(S): L84 - Corns and callosities (4) Diabetes mellitus, type II: CODE(S): E11.9 - Type 2 diabetes mellitus without complications (5) Parkinsons disease: CODE(S): G20 - Parkinson's disease (6) Acute renal insufficiency: CODE(S): N28.9 - Disorder of kidney and ureter, unspecified (7) Generalized weakness: CODE(S): R53.1 - Weakness (8) HLD (hyperlipidemia): CODE(S): E78.5 - Hyperlipidemia, unspecified (9) Hypertension: CODE(S): I10 - Essential (primary) hypertension PLAN: This is a 75-year-old male who presents to the wound care center for follow-up of bilateral foot callus with wounds subfirst metatarsal head right foot and subthird metatarsal head left foot complicated by diabetes mellitus type 2 with peripheral polyneuropathy, Parkinson's disease, acute renal insufficiency, hypertension, generalized weakness, and hyperlipidemia. His states they are continuing to change the dressings to his feet daily and trying to offload in his tennis shoes with inserts. Vascular status intact to bilateral lower extremities with palpable pedal pulses, DP and PT. Debridement of hyperkeratotic tissue subfifth metatarsal head right foot was performed with a #15 blade without incident. Site is stable with no localized signs of infection. Recommended continued use of urea 42% cream twice daily to the site to aid in reducing callus buildup. I recommend continued monitoring of the site as I have discussed with her that this could potentially become a wound if not properly offloaded. I recommended continued offloading with diabetic shoes with his protective inserts. Debridement of subthird metatarsal head left foot performed with a #15 blade removing hyperkeratotic tissue/callus tissue from the site. Was performed without incident. Upon debridement of this site, previous wound noted to be healed with intact healthy pink tissue and no localized signs of infection. At this time I now recommend applying urea 42% cream twice daily to the site to aid in reducing the callus buildup and continuing to offload with a diabetic shoe insert. I am sending patient to the office to cook pickled meat a set of diabetic inserts today and I have instructed him to place these into his shoes to offload his callus sites to protect his foot and prevent future ulceration. Debridement of subfirst metatarsal head wound of the right foot performed with a #15 blade removing hyperkeratotic tissue, macerated tissue, biofilm, and slough. Debridement performed to the subcutaneous tissue level. Ulceration site is reducing in size and demonstrates no localized erythema, no purulent drainage, no malodor, no red streaking, or other localized signs of infection. Ulceration measures 0.1cm x 0.1cm x 0.1cm. Ulceration site dressed with Jaja with dry sterile dressing. Dressings are to be changed daily. I discussed again with the how the pressure sites on his feet form calluses which can contribute to wounds with continued shear forces. I discussed how calluses can also hide wounds. I recommend he begin wearing protective diabetic inserts to aid in offloading the sites and protect his foot. I discussed with the patient and his today to continue to check his feet daily for any signs of wounds or pressure sites. I discussed with the patient and his that he is to remain in the diabetic shoes with inserts for proper offloading of the pressure sites and to not wear house sandals or house slippers or go barefoot. I discussed the localized signs of infection with the patient's and his today and instructed them if they notice any increased redness around the wound, purulent drainage, malodor, red streaking going up the leg, or if you experiences any nausea, vomiting, fever, chills to go to the emergency room for treatment as these are signs of a progressing infection. and patient voiced understanding of this. I reviewed and discussed his case today. Debridement was performed today as noted in the clinical panel to all of the ulcer sites. The following work up and care recommendations were made: Dressing: Jaja, dry sterile dressing to the subfirst metatarsal wound of the right foot Wash: Soap and water Tissue growth optimization: Jaja Offload: Diabetic shoe with inserts Vascular: Palpable pedal pulses Edema: No edema Infection: No localized signs of infection Pain: Patient may take [id number] Tylenol extra strength for any pain or discomfort Host factors: Diabetes mellitus type 2 with peripheral polyneuropathy, proper glycemic control offloading with diabetic patient shoes discussed I answered all the patient's questions. To return to the wound healing center in 1 week or call sooner if the patient has any questions or concerns. Note: [employer] speech recognition firearms sales associate software was used to create portions of this document. Sound-alike and misspelled words, as well as other firearms sales associate errors may be contained in the documentation.
[2021-10-14 09:01] VITALS: BP 108/71; PULSE 71; TEMP 35.3; BMI 21.2
--- NOTE | 2021-10-14 09:22 | PCM.WC.PN ---
History of Present Illness Date of Service: 10/14/21 Chief Complaint: Foot wound History of Wound: 75-year-old male who was referred for evaluation relative to wounds on his feet. He has apparently been under the care of Dr. Cheung, podiatric specialist, recently, though no such medical records are available. According to the patient, and his , the patient was evaluated in Dr. Cheung's office, and the calluses on the plantar aspect of both feet were scraped. Bleeding was encountered. The patient indicates that he was then referred for further evaluation and management at the [facility]. The patient's pre-existing medical problems include diabetes mellitus, hyperlipidemia, Parkinson's disease, hypertension, debility, and generalized weakness. Subjective Subjective This is a 76-year-old male who presents for follow-up to the wound care center with a left foot subfirst metatarsal ulceration. He also has callus tissue subfourth metatarsal left foot and subthird metatarsal right foot. states that they picked up the diabetic foot inserts at the office last week and he has been wearing them in his shoes. They have been applying the urea 42% cream to his callus sites and continue to dress his ulceration with Jaja daily. He continues to deny any nausea, vomiting, fever, chills, shortness of breath, or other constitutional symptoms. Objective Data Objective Data Vital Signs: Vital Signs Temp Pulse Resp BP 95.6 F L 71 18 108/71 10/14/21 09:01 10/14/21 09:01 10/07/21 08:59 10/14/21 09:01 Weight: 67.132 kg Body Mass Index (BMI) 21.2 Physical Exam Const alert, oriented x3 and no apparent distress General Appearance: cooperative and comfortable HEENT normocephalic Eyes General Eye: normal appearance of both eyes Neck General: normal visual inspection Lymph Lymphatic: no lymphadenopathy noted and no lymphedema noted Chest inspection of chest normal Resp normal respiratory effort Cardio regular rate and regular rhythm Skin no rashes or lesions noted General Skin Exam: turgor normal Neuro Motor Exam: strength 5/5 throughout and clonus absent Debridement Note Debridement Note Wound debrided: Left subfirst metatarsal head Laterality: Left Wound Grade/Stage: Owusu stage I Type of Debridement: Excisional debridement Anesthesia Used: 5% Lidocaine Gel Depth: in the subcutaneous layer Percentage of wound debrided: 100 Instrument Used: #15 blade Tissue Removed: Fibrous, devitalized subcutaneous, biofilm, slough Severity: Fat Layer Exposed Amount of bleeding with debridement: Mild Bleeding Controlled with: Pressure Patient tolerated procedure: Patient tolerated procedure well Post-Debridement Measurements and Additional Note: Post-Debridement Measurements/Treatment REECE - Nurse 1 - General Ulcer Assessment Start: 10/07/21 08:59 Freq: Status: Active Protocol: TAMIR Activity Type Activity Date Activity User E-Sign Co-Sign Detail Recorded Client Recorded Date Recorded By Document 10/07/21 08:59 PL [id number] 10/07/21 09:04 PL Document 10/14/21 09:01 AK [id number] 10/14/21 09:09 AK 10/07/21 10/14/21 08:59 09:01 WC - Today's Visit Information Type of service Follow-up Visit Follow-up Visit (Physician/[employer] GET [employer] MECHANIC (Physician/[employer] GET [employer] MECHANIC ) ) Arrival Mode Ambulatory Ambulatory Transfer Assistance None Patient Identification Verified (Name & Yes Yes ) Patient Requires Transmission-Based No No Precautions Safety Precautions NA NA Height and Weight Body Mass Index (BMI) 21.2 21.2 BMI Classification Normal Normal Vital Signs Temperature (97.8 F-99.1 F) 97.3 F L 95.6 F L Temperature Source Temporal Temporal Pulse Rate (60-100) 69 71 Pulse Location Monitor Respiratory Rate (12-18) 18 Blood Pressure (90/60-120/80) 107/62 108/71 Blood Pressure Mean (mm Hg) 77 83 Source Monitor History Since Last Visit- (Skip if this is Patient's initial visit) Have you changed medications since your No No last visit? Any new allergies or adverse reactions No No Had a fall/change in ADL's that may No No increase risk of falls Signs or symptoms of abuse and/or No No neglect since last visit Have you been in the hospital since your No No last visit? Has dressing in place as prescribed Yes Yes Has compression in place as prescribed N/A N/A Has offloadiing in place as prescribed N/A N/A Experienced any changes in pain level or No No management Left Footwear Regular Shoe Right Footwear Regular Shoe Pain Scale: 0-10 Numeric Is Patient Pain Free? Yes Yes REECE - Nurse 1 - General Ulcer Measurement Start: 10/07/21 08:59 Freq: Status: Active Protocol: Activity Type Activity Date Activity User E-Sign Co-Sign Detail Recorded Client Recorded Date Recorded By Document 10/07/21 08:59 PL [id number] 10/07/21 09:04 PL Document 10/14/21 09:01 AK [id number] 10/14/21 09:09 AK 10/07/21 10/14/21 08:59 09:01 Wound Center Nurse 1 #3- R PLANTAR -Combined with other wound No -Current Size (cm) - Length 0.1 -Current Size (cm) - Width 0.1 -Current Size (cm) - Depth 0.1 -Total Square Cm 0.01 -Epithelialization None Present -Tunneling No -Undermining/Tunneling No -Circular Undermining No -Classification - Thickness Full Thickness with Exposed Support Structure -Exudate Type Serosanguineous -Wound Margin Thickened -Granulation Amt None Present (0 %) -Slough/Fibrin Yes -Necrosis Amt Large (67-100%) -Necrotic Tissue Type Eschar -Texture (Kathya-wound Skin Appearance) Callus -Moisture (Kathya-wound Skin Appearance) No Abnormality -Color (Kathya-wound Skin Appearance) No Abnormality -Temperature (Kathya-wound Skin No Abnormality Appearance) (Pt Warm) -Ulcer Cleansing Rinsed/ Irrigated with Saline -Anesthetic Used 5% Lidocaine Gel #2- R 1ST MET HEAD -Combined with other wound No -Current Size (cm) - Length 0.1 1 -Current Size (cm) - Width 0.1 0.5 -Current Size (cm) - Depth 0.1 0.1 -Total Square Cm 0.01 0.5 -Photo Taken No -Epithelialization None Present -Tunneling No No -Undermining/Tunneling No No -Circular Undermining No No -Classification - Thickness Partial Thickness -Change in Wound Grade/Stage No -Exudate Amt Medium None Present -Exudate Type Serosanguineous Serosanguineous -Wound Margin Thickened Distinct, Outline Attached -Granulation Amt None Present (0 %) -Granulation Quality N/A -Slough/Fibrin Yes No -Necrosis Amt Small (1-33%) None Present (0 %) -Necrotic Tissue Type Eschar -Structure Exposed N/A -Texture (Kathya-wound Skin Appearance) Callus Assessed,Callus -Moisture (Kathya-wound Skin Appearance) Assessed,Dry/ Scaly -Color (Kathya-wound Skin Appearance) No Abnormality, Assessed -Temperature (Kathya-wound Skin No Abnormality Appearance) (Pt Warm) -Tenderness on Palpation (Kathya-wound No Skin Appearance) -Ulcer Cleansing Rinsed/ Irrigated with Saline -Foul Odor after Cleansing No -Anesthetic Used 4% Lidocaine Solution REECE - Nurse 2 - General Ulcer CM Notes Start: 10/07/21 08:59 Freq: Status: Active Protocol: Activity Type Activity Date Activity User E-Sign Co-Sign Detail Recorded Client Recorded Date Recorded By Document 10/07/21 12:46 PL [id number] 10/07/21 12:48 PL 10/07/21 12:46 Wound Center Nurse 2 #3- R PLANTAR -Procedure Performed No -Wound/Ulcer Outcome Healed- Epithelialized #2- R 1ST MET HEAD -Time 09:02 -Correct Patient Yes -Correct Side, Site, Position Yes -Correct Procedure Yes -Procedure Performed Yes -Type of Procedure Debridement -Clinical Debridement Subcutaneous -Tissue Removed Subcutaneous -Post Debridement (cm) - Length 0.1 -Post Debridement (cm) - Width 0.1 -Post Debridement (cm) - Depth 0.1 -Total Square (Post) (cm) 0.01 -Area of Debridement (cm) - Length 0.1 -Area of Debridement (cm) - Width 0.1 -Total Square (Area) (cm) 0.01 -Tunneling No -Undermining/Tunneling No -Circular Undermining No -Wound/Ulcer Outcome Not Healed -Ulcer Cleansing Rinsed/ Irrigated with Saline -Foul Odor after Cleansing No -Bioengineered Tissue No -Bleeding Controlled with Pressure -Treatment Response Procedure Tolerated Well -Debridement - Subq, 1st 20sq cm Yes #1- L PLANTAR -Procedure Performed No -Wound/Ulcer Outcome Healed- Epithelialized Pain Scale: 0-10 Numeric Is Patient Pain Free? Yes REECE - Nurse 3 - General Ulcer D/C NN Start: 10/07/21 08:59 Freq: Status: Active Protocol: Activity Type Activity Date Activity User E-Sign Co-Sign Detail Recorded Client Recorded Date Recorded By Document 10/07/21 12:53 PL [id number] 10/07/21 12:54 PL 10/07/21 12:53 Wound Care Nurse 3 #2- R 1ST MET HEAD -Ulcer Cleansing Rinsed/ Irrigated with Saline -Foul Odor after Cleansing No -Primary Dressing Applied Promogran Jaja Matter -Primary Dressing Covered/Secured with Dry Gauze & Roll Gauze, Secured with Tape -Promogran Jaja Matter 1 Pain Scale: 0-10 Numeric Is Patient Pain Free? Yes Teaching: Wound Center Dressing Your Wound -Person Taught Patient, Significant Other -Teaching Method Discussion, Demonstration -Response to teaching Verbalize understanding WC - Visit Discharge Discharge Condition Stable Ambulatory Status Ambulatory Transportation Private Auto Accompanied by Assessment/Plan Assessment/Plan (1) Non-pressure chronic ulcer of other part of right foot with fat layer exposed: CODE(S): L97.512 - Non-pressure chronic ulcer of other part of right foot with fat layer exposed (2) Non-pressure chronic ulcer of other part of left foot with fat layer exposed: CODE(S): L97.522 - Non-pressure chronic ulcer of other part of left foot with fat layer exposed (3) Callus of foot: CODE(S): L84 - Corns and callosities (4) Diabetes mellitus, type II: CODE(S): E11.9 - Type 2 diabetes mellitus without complications (5) Parkinsons disease: CODE(S): G20 - Parkinson's disease (6) Acute renal insufficiency: CODE(S): N28.9 - Disorder of kidney and ureter, unspecified (7) Generalized weakness: CODE(S): R53.1 - Weakness (8) HLD (hyperlipidemia): CODE(S): E78.5 - Hyperlipidemia, unspecified (9) Hypertension: CODE(S): I10 - Essential (primary) hypertension PLAN: This is a 75-year-old male who presents to the wound care center for follow-up of bilateral foot callus with wounds subfirst metatarsal head right foot and subthird metatarsal head left foot complicated by diabetes mellitus type 2 with peripheral polyneuropathy, Parkinson's disease, acute renal insufficiency, hypertension, generalized weakness, and hyperlipidemia. His states they are continuing to change the dressings to his feet daily and trying to offload in his tennis shoes with diabetic inserts. Vascular status intact to bilateral lower extremities with palpable pedal pulses, DP and PT. Debridement of hyperkeratotic tissue subfifth metatarsal head right foot was performed with a #15 blade without incident. Site is stable with no localized signs of infection. Recommended continued use of urea 42% cream twice daily to the site to aid in reducing callus buildup. I recommend continued monitoring of the site as I have discussed with her that this could potentially become a wound if not properly offloaded. I recommended continued offloading with diabetic shoes with his protective inserts. Debridement of subthird metatarsal head left foot performed with a #15 blade removing hyperkeratotic tissue/callus tissue from the site. Was performed without incident. Site continues to remain healed with intact healthy pink tissue and no localized signs of infection. He is to continue applying urea 42% cream twice daily to the site to aid in reducing the callus buildup and continuing to offload with a diabetic shoe insert. Debridement of subfirst metatarsal head wound of the right foot performed with a #15 blade removing hyperkeratotic tissue, macerated tissue, biofilm, and slough. Debridement performed to the subcutaneous tissue level. Ulceration site is continuing to reduce in size and demonstrates no localized erythema, no purulent drainage, no malodor, no red streaking, or other localized signs of infection. Ulceration measures 0.1cm x 0.1cm x 0.1cm. Ulceration site dressed with Jaja with dry sterile dressing. Dressings are to be changed daily. I discussed again with the how the pressure sites on his feet form calluses which can contribute to wounds with continued shear forces. I discussed how calluses can also hide wounds. I recommend he continue wearing protective diabetic inserts to aid in offloading the sites and protect his foot. states she has been applying 42% urea cream to the site I have instructed her to not do this as it will slow his healing. I have instructed her to only apply the Jaja and a dry sterile dressing and await for the wound to heal before continuing with urea 42%. I discussed with the patient and his today to continue to check his feet daily for any signs of wounds or pressure sites. I discussed with the patient and his that he is to remain in the diabetic shoes with inserts for proper offloading of the pressure sites and to not wear house sandals or house slippers or go barefoot. I discussed the localized signs of infection with the patient's and his today and instructed them if they notice any increased redness around the wound, purulent drainage, malodor, red streaking going up the leg, or if you experiences any nausea, vomiting, fever, chills to go to the emergency room for treatment as these are signs of a progressing infection. and patient voiced understanding of this. I reviewed and discussed his case today. Debridement was performed today as noted in the clinical panel to all of the ulcer sites. The following work up and care recommendations were made: Dressing: Jaja, dry sterile dressing to the subfirst metatarsal wound of the right foot Wash: Soap and water Tissue growth optimization: Jaja Offload: Diabetic shoe with inserts Vascular: Palpable pedal pulses Edema: No edema Infection: No localized signs of infection Pain: Patient may take [id number] Tylenol extra strength for any pain or discomfort Host factors: Diabetes mellitus type 2 with peripheral polyneuropathy, proper glycemic control offloading with diabetic patient shoes discussed I answered all the patient's questions. To return to the wound healing center in 1 week or call sooner if the patient has any questions or concerns. Note: [employer] speech recognition assorter laundry software was used to create portions of this document. Sound-alike and misspelled words, as well as other assorter laundry errors may be contained in the documentation.
[2021-10-21 08:54] VITALS: TEMP 35.4; BMI 21.2
--- NOTE | 2021-10-21 09:28 | PN.PCM_ITS ---
History of Present Illness Date of Service: 10/21/21 Chief Complaint: Foot wound History of Wound: 75-year-old male who was referred for evaluation relative to wounds on his feet. He has apparently been under the care of Dr. Cheung, podiatric specialist, recently, though no such medical records are available. According to the patient, and his , the patient was evaluated in Dr. Cheung's office, and the calluses on the plantar aspect of both feet were scraped. Bleeding was encountered. The patient indicates that he was then referred for further evaluation and management at the [facility]. The patient's pre-existing medical problems include diabe dalila mellitus, hyperlipidemia, Parkinson's disease, hypertension, debility, and generalized weakness. Subjective Subjective This is a 76-year-old male who presents for follow-up to the wound care center with a left foot subfirst metatarsal ulceration. He also has callus tissue subfourth metatarsal left foot and subthird metatarsal right foot. states that he has been compliant in wearing his diabetic foot inserts in his shoes. They have been applying the urea 42% cream to his callus sites and continue to dress his ulceration with Jaja daily. He continues to deny any nausea, vomiting, fever, chills, shortness of breath, or other constitutional symptoms. Objective Data Objective Data Vital Signs: Vital Signs Temp Pulse Resp BP 95.7 F L 71 18 108/71 10/21/21 08:54 10/14/21 09:01 10/07/21 08:59 10/14/21 09:01 Weight: 67.132 kg Body Mass Index (BMI) 21.2 Physical Exam Const alert, oriented x3 and no apparent distress General Appearance: cooperative and comfortable HEENT normocephalic Eyes General Eye: normal appearance of both eyes Neck General: normal visual inspection Lymph Lymphatic: no lymphadenopathy noted and no lymphedema noted Chest inspection of chest normal Resp normal respiratory effort Cardio regular rate and regular rhythm Skin no rashes or lesions noted General Skin Exam: turgor normal Neuro Motor Exam: strength 5/5 throughout and clonus absent Debridement Note Debridement Note Wound debrided: Right subfirst metatarsal head Laterality: Right Wound Grade/Stage: Owusu stage I Type of Debridement: Excisional debridement Anesthesia Used: 5% Lidocaine Gel Depth: in the subcutaneous layer Percentage of wound debrided: 100 Instrument Used: #15 blade Tissue Removed: Fibrous, devitalized subcutaneous, biofilm, slough Severity: Fat Layer Exposed Amount of bleeding with debridement: Mild Bleeding Controlled with: Pressure Patient tolerated procedure: Patient tolerated procedure well Post-Debridement Measurements and Additional Note: Post-Debridement Measurements/Treatment WC - Nurse 1 - General Ulcer Assessment Start: 10/07/21 08:59 Freq: Status: Active Protocol: REECE.[email or web address] Activity Type Activity Date Activity User E-Sign Co-Sign Detail Recorded Client Recorded Date Recorded By Document 10/07/21 08:59 PL [id number] 10/07/21 09:04 PL Document 10/14/21 09:01 AK [id number] 10/14/21 09:09 AK Document 10/21/21 08:54 JF [id number] 10/21/21 09:03 JF 10/07/21 10/14/21 10/21/21 08:59 09:01 08:54 WC - Today's Visit Information Type of service Follow-up Visit Follow-up Visit Follow-up Visit (Physician/HEALTH EQUIPMENT SERVICER (Physician/HEALTH EQUIPMENT SERVICER (Physician/HEALTH EQUIPMENT SERVICER ) ) ) Arrival Mode Ambulatory Ambulatory Ambulatory Transfer Assistance None Accompanied by Patient Identification Verified (Name & Yes Yes Yes ) Patient Requires Transmission-Based No No No Precautions Safety Precautions NA NA Height and Weight Body Mass Index (BMI) 21.2 21.2 21.2 BMI Classification Normal Normal Normal Vital Signs Temperature (97.8 F-99.1 F) 97.3 F L 95.6 F L 95.7 F L Temperature Source Temporal Temporal Temporal Pulse Rate (60-100) 69 71 Pulse Location Monitor Respiratory Rate (12-18) 18 Blood Pressure (90/60-120/80) 107/62 108/71 Blood Pressure Mean (mm Hg) 77 83 Source Monitor History Since Last Visit- (Skip if this is Patient's initial visit) Have you changed medications since your No No No last visit? Any new allergies or adverse reactions No No No Had a fall/change in ADL's that may No No No increase risk of falls Signs or symptoms of abuse and/or No No No neglect since last visit Have you been in the hospital since your No No No last visit? Has dressing in place as prescribed Yes Yes Yes Has compression in place as prescribed N/A N/A N/A Has offloadiing in place as prescribed N/A N/A Yes Experienced any changes in pain level or No No No management Left Footwear Regular Shoe Slipper Right Footwear Regular Shoe Regular Shoe Pain Scale: 0-10 Numeric Is Patient Pain Free? Yes Yes Yes WC - Nurse 1 - General Ulcer Measurement Start: 10/07/21 08:59 Freq: Status: Active Protocol: Activity Type Activity Date Activity User E-Sign Co-Sign Detail Recorded Client Recorded Date Recorded By Document 10/07/21 08:59 PL [id number] 10/07/21 09:04 PL Document 10/14/21 09:01 AK [id number] 10/14/21 09:09 AK Document 10/21/21 08:54 JF [id number] 10/21/21 09:03 JF 10/07/21 10/14/21 10/21/21 08:59 09:01 08:54 Wound Center Nurse 1 #3- R PLANTAR -Combined with other wound No -Current Size (cm) - Length 0.1 -Current Size (cm) - Width 0.1 -Current Size (cm) - Depth 0.1 -Total Square Cm 0.01 -Epithelialization None Present -Tunneling No -Undermining/Tunneling No -Circular Undermining No -Classification - Thickness Full Thickness with Exposed Support Structure -Exudate Type Serosanguineous -Wound Margin Thickened -Granulation Amt None Present (0 %) -Slough/Fibrin Yes -Necrosis Amt Large (67-100%) -Necrotic Tissue Type Eschar -Texture (Kathya-wound Skin Appearance) Callus -Moisture (Kathya-wound Skin Appearance) No Abnormality -Color (Kathya-wound Skin Appearance) No Abnormality -Temperature (Kathya-wound Skin No Abnormality Appearance) (Pt Warm) -Ulcer Cleansing Rinsed/ Irrigated with Saline -Anesthetic Used 5% Lidocaine Gel #2- R 1ST MET HEAD -Combined with other wound No No -Current Size (cm) - Length 0.1 1 0.4 -Current Size (cm) - Width 0.1 0.5 0.2 -Current Size (cm) - Depth 0.1 0.1 0.2 -Total Square Cm 0.01 0.5 0.08 -Photo Taken No Yes -Epithelialization None Present Small 1-33% -Tunneling No No No -Undermining/Tunneling No No No -Circular Undermining No No No -Classification - Thickness Partial Thickness -Change in Wound Grade/Stage No -Exudate Amt Medium None Present Small -Exudate Type Serosanguineous Serosanguineous Serosanguineous -Wound Margin Thickened Distinct, Flat & Intact Outline Attached -Granulation Amt None Present (0 Medium (34-66%) %) -Granulation Quality N/A Red -Slough/Fibrin Yes No Yes -Necrosis Amt Small (1-33%) None Present (0 Small (1-33%) %) -Necrotic Tissue Type Eschar Adherent Slough -Structure Exposed N/A N/A -Texture (Kathya-wound Skin Appearance) Callus Assessed,Callus Assessed -Moisture (Kathya-wound Skin Appearance) Assessed,Dry/ No Abnormality, Scaly Assessed,Dry/ Scaly -Color (Kathya-wound Skin Appearance) No Abnormality, Assessed Assessed -Temperature (Kathya-wound Skin No Abnormality No Abnormality Appearance) (Pt Warm) (Pt Warm) -Tenderness on Palpation (Kathya-wound No No Skin Appearance) -Ulcer Cleansing Rinsed/ Rinsed/ Irrigated with Irrigated with Saline Saline -Foul Odor after Cleansing No No -Anesthetic Used 4% Lidocaine 5% Lidocaine Solution Gel WC - Nurse 2 - General Ulcer CM Notes Start: 10/07/21 08:59 Freq: Status: Active Protocol: Activity Type Activity Date Activity User E-Sign Co-Sign Detail Recorded Client Recorded Date Recorded By Document 10/07/21 12:46 PL [id number] 10/07/21 12:48 PL Document 10/14/21 12:41 PL [id number] 10/14/21 12:42 PL 10/07/21 10/14/21 12:46 12:41 Wound Center Nurse 2 #3- R PLANTAR -Procedure Performed No -Wound/Ulcer Outcome Healed- Epithelialized #2- R 1ST MET HEAD -Time 09:02 09:14 -Correct Patient Yes Yes -Correct Side, Site, Position Yes Yes -Correct Procedure Yes Yes -Procedure Performed Yes Yes -Type of Procedure Debridement Debridement -Clinical Debridement Subcutaneous Subcutaneous -Tissue Removed Subcutaneous Subcutaneous -Post Debridement (cm) - Length 0.1 1.0 -Post Debridement (cm) - Width 0.1 0.5 -Post Debridement (cm) - Depth 0.1 0.1 -Total Square (Post) (cm) 0.01 0.50 -Area of Debridement (cm) - Length 0.1 1.0 -Area of Debridement (cm) - Width 0.1 0.5 -Total Square (Area) (cm) 0.01 0.50 -Tunneling No No -Undermining/Tunneling No No -Circular Undermining No No -Wound/Ulcer Outcome Not Healed Not Healed -Ulcer Cleansing Rinsed/ Rinsed/ Irrigated with Irrigated with Saline Saline -Foul Odor after Cleansing No No -Bioengineered Tissue No No -Bleeding Controlled with Pressure Pressure -Treatment Response Procedure Procedure Tolerated Well Tolerated Well -Debridement - Subq, 1st 20sq cm Yes Yes #1- L PLANTAR -Procedure Performed No -Wound/Ulcer Outcome Healed- Epithelialized Pain Scale: 0-10 Numeric Is Patient Pain Free? Yes Yes - Nurse 3 - General Ulcer D/C NN Start: 10/07/21 08:59 Freq: Status: Active Protocol: Activity Type Activity Date Activity User E-Sign Co-Sign Detail Recorded Client Recorded Date Recorded By Document 10/07/21 12:53 PL [id number] 10/07/21 12:54 PL Document 10/14/21 09:31 AK [id number] 10/14/21 09:33 AK Document 10/21/21 09:17 [id number] 10/21/21 09:17 JF 10/07/21 10/14/21 10/21/21 12:53 09:31 09:17 Wound Care Nurse 3 #2- R 1ST MET HEAD -Ulcer Cleansing Rinsed/ Rinsed/ Rinsed/ Irrigated with Irrigated with Irrigated with Saline Saline Saline -Foul Odor after Cleansing No No No -Negative Pressure Wound Therapy N/A -Primary Dressing Applied Promogran Promogran C Hydrogel ($), Jaja Matter Jaja Matter Promogran Jaja Matter -Primary Dressing Covered/Secured with Dry Gauze & Dry Gauze, Dry Gauze, Roll Gauze, Secured with Secured with Secured with Tape Tape Tape -Promogran Jaja Matter 1 1 1 Right -Tubular Bandage Double Layer -Size of Tubigrip Used Size D -Size D ($) 2 Pain Scale: 0-10 Numeric Is Patient Pain Free? Yes Yes Yes Teaching: Wound Center Dressing Your Wound -Person Taught Patient, Significant Other -Teaching Method Discussion, Demonstration -Response to teaching Verbalize understanding WC - Visit Discharge Discharge Condition Stable Stable Stable Ambulatory Status Ambulatory Ambulatory Ambulatory Transportation Private Auto Private Auto Private Auto Accompanied by Medication Reconcilliation completed & Yes Yes provided to patient/care provider Clinical Summary of Care Provided Yes Yes Assessment/Plan Assessment/Plan (1) Non-pressure chronic ulcer of other part of right foot with fat layer exposed: CODE(S): L97.512 - Non-pressure chronic ulcer of other part of right foot with fat layer exposed (2) Non-pressure chronic ulcer of other part of left foot with fat layer exposed: CODE(S): L97.522 - Non-pressure chronic ulcer of other part of left foot with fat layer exposed (3) Callus of foot: CODE(S): L84 - Corns and callosities (4) Diabetes mellitus, type II: CODE(S): E11.9 - Type 2 diabetes mellitus without complications (5) Parkinsons disease: CODE(S): G20 - Parkinson's disease (6) Acute renal insufficiency: CODE(S): N28.9 - Disorder of kidney and ureter, unspecified (7) Generalized weakness: CODE(S): R53.1 - Weakness (8) HLD (hyperlipidemia): CODE(S): E78.5 - Hyperlipidemia, unspecified (9) Hypertension: CODE(S): I10 - Essential (primary) hypertension PLAN: This is a 75-year-old male who presents to the wound care center for follow-up of bilateral foot callus with wounds subfirst metatarsal head right foot and callus tissue subthird metatarsal head left foot and subfifth metatarsal head right foot complicated by diabetes mellitus type 2 with peripheral polyneuropathy, Parkinson's disease, acute renal insufficiency, hypertension, generalized weakness, and hyperlipidemia. His states they are continuing to change the dressings to his feet daily and trying to offload in his tennis shoes with diabetic inserts. Vascular status intact to bilateral lower extremities with palpable pedal pulses, DP and PT. Debridement of hyperkeratotic tissue subfifth metatarsal head right foot was performed with a #15 blade without incident. Site is stable with no localized signs of infection. Recommended continued use of urea 42% cream twice daily to the site to aid in reducing callus buildup. I recommend continued monitoring of the site as I have discussed with her that this could potentially become a wound if not properly offloaded. I recommended continued offloading with diabetic shoes with his protective inserts. subthird metatarsal head left foot demonstrates very little callus tissue buildup secondary to continued use of urea cream and his offloading and diabetic shoe inserts. Site continues to remain healed with intact healthy pink tissue and no localized signs of infection. He is to continue applying urea 42% cream twice daily to the site to aid in reducing the callus buildup and continuing to offload with a diabetic shoe insert. Debridement of subfirst metatarsal head wound of the right foot performed with a #15 blade removing hyperkeratotic tissue, macerated tissue, biofilm, and slough. Debridement performed to the subcutaneous tissue level. Ulceration site is continuing to reduce in size and demonstrates no localized erythema, no purulent drainage, no malodor, no red streaking, or other localized signs of infection. Ulceration measures 0.1cm x 0.1cm x 0.1cm. Ulceration site dressed with Jaja with dry sterile dressing. Dressings are to be changed daily. I discussed again with the how the pressure sites on his feet form calluses which can contribute to wounds with continued shear forces. I discussed how calluses can also hide wounds. I recommend he continue wearing protective diabetic inserts to aid in offloading the sites and protect his foot. states she has been applying 42% urea cream to the site I have instructed her to not do this as it will slow his healing. I have instructed her to only apply the Jaja and a dry sterile dressing and await for the wound to heal before continuing with urea 42%. I discussed with the patient and his today to continue to check his feet daily for any signs of wounds or pressure sites. I discussed with the patient and his that he is to remain in the diabetic shoes with inserts for proper offloading of the pressure sites and to not wear house sandals or house slippers or go barefoot. I discussed the localized signs of infection with the patient's and his today and instructed them if they notice any increased redness around the wound, purulent drainage, malodor, red streaking going up the leg, or if you experiences any nausea, vomiting, fever, chills to go to the emergency department for treatment as these are signs of a progressing infection. and patient voiced understanding of this. I reviewed and discussed his case today. Debridement was performed today as noted in the clinical panel to all of the ulcer sites. The following work up and care recommendations were made: Dressing: Jaja, dry sterile dressing to the subfirst metatarsal wound of the right foot Wash: Soap and water Tissue growth optimization: Jaja Offload: Diabetic shoe with inserts Vascular: Palpable pedal pulses Edema: No edema Infection: No localized signs of infection Pain: Patient may take [id number] Tylenol extra strength for any pain or discomfort Host factors: Diabetes mellitus type 2 with peripheral polyneuropathy, proper glycemic control offloading with diabetic patient shoes discussed I answered all the patient's questions. To return to the wound healing center in 1 week or call sooner if the patient has any questions or concerns. Note: [employer] speech recognition drier attendant software was used to create portions of this document. Sound-alike and misspelled words, as well as other drier attendant errors may be contained in the documentation.
== END 2021-10-25 23:59 ==
LOC: WC 09:00
PROVIDERS: PCP Nurse Practitioner Family; Visit Provider Student in an Organized Health Care Education/Training Program
DX: E11.621 Type 2 diabetes mellitus with foot ulcer (principal); G20 Parkinson's disease; L97.522 Non-pressure chronic ulcer of other part of left foot with fat layer exposed; L97.512 Non-pressure chronic ulcer of other part of right foot with fat layer exposed; E11.42 Type 2 diabetes mellitus with diabetic polyneuropathy; E78.5 Hyperlipidemia, unspecified; R53.1 Weakness; N28.9 Disorder of kidney and ureter, unspecified; I10 Essential (primary) hypertension; R53.81 Other malaise; L84 Corns and callosities
CPT/HCPCS: 11042

== ENCOUNTER 2021-11-25 08:30 | Outpatient (RCR) | payer MEDICARE, OTHER, SELFPAY ==
[2021-10-26 00:15] VITALS: BP 108/71; PULSE 71; RESP 18; TEMP 35.4; BMI 21.2
[2021-11-04 09:00] VITALS: BP 107/60; PULSE 74; TEMP 36.1; BMI 21.2
--- NOTE | 2021-11-04 09:47 | PCM.WC.PN ---
History of Present Illness Date of Service: 11/04/21 Chief Complaint: Foot wound History of Wound: 75-year-old male who was referred for evaluation relative to wounds on his feet. He has apparently been under the care of Dr. Cheung, podiatric specialist, recently, though no such medical records are available. According to the patient, and his , the patient was evaluated in Dr. Cheung's office, and the calluses on the plantar aspect of both feet were scraped. Bleeding was encountered. The patient indicates that he was then referred for further evaluation and management at the [facility]. The patient's pre-existing medical problems include diabetes mellitus, hyperlipidemia, Parkinson's disease, hypertension, debility, and generalized weakness. Subjective Subjective This is a 76-year-old male who presents for follow-up to the wound care center with a left foot subfirst metatarsal ulceration. He also has callus tissue subfourth metatarsal left foot and subthird metatarsal right foot. states that he has been compliant in wearing his diabetic foot inserts in his shoes. They have been applying the urea 42% cream to his callus sites and continue to dress his ulceration with Jaja daily. He continues to deny any nausea, vomiting, fever, chills, shortness of breath, or other constitutional symptoms. Objective Data Objective Data Vital Signs: Vital Signs Temp Pulse Resp BP 97.0 F L 74 18 107/60 11/04/21 09:00 11/04/21 09:00 10/26/21 00:15 11/04/21 09:00 Weight: 67.132 kg Body Mass Index (BMI) 21.2 Physical Exam Const alert, oriented x3 and no apparent distress General Appearance: cooperative and comfortable HEENT normocephalic Eyes General Eye: normal appearance of both eyes Neck General: normal visual inspection Lymph Lymphatic: no lymphadenopathy noted and no lymphedema noted Chest inspection of chest normal Resp normal respiratory effort Cardio regular rate and regular rhythm Skin no rashes or lesions noted and skin turgor normal Neuro oriented x3 and moves all extremities Motor Exam: strength 5/5 throughout and clonus absent Debridement Note Debridement Note Wound debrided: Right subfirst metatarsal head Laterality: Right Wound Grade/Stage: Owusu stage I Type of Debridement: Excisional debridement Anesthesia Used: 5% Lidocaine Gel Depth: in the subcutaneous layer Percentage of wound debrided: 100 Instrument Used: #15 blade Tissue Removed: Fibrous, devitalized subcutaneous, biofilm, slough Severity: Fat Layer Exposed Amount of bleeding with debridement: Mild Bleeding Controlled with: Pressure Patient tolerated procedure: Patient tolerated procedure well Post-Debridement Measurements and Additional Note: Post-Debridement Measurements/Treatment - Nurse 1 - General Ulcer Assessment Start: 11/04/21 09:00 Freq: Status: Active Protocol: TAMIR Activity Type Activity Date Activity User E-Sign Co-Sign Detail Recorded Client Recorded Date Recorded By Document 11/04/21 09:00 AMILCAR [id number] 11/04/21 09:10 KR 11/04/21 09:00 WC - Today's Visit Information Type of service Follow-up Visit (Physician/ELECTRICIAN UNDERGROUND ) Arrival Mode Ambulatory Patient Identification Verified (Name & Yes ) Height and Weight Body Mass Index (BMI) 21.2 BMI Classification Normal Vital Signs Temperature (97.8 F-99.1 F) 97.0 F L Temperature Source Temporal Pulse Rate (60-100) 74 Pulse Location Monitor Blood Pressure (90/60-120/80) 107/60 Blood Pressure Mean (mm Hg) 75 Source Monitor Position Sitting Blood Pressure Location Left Arm History Since Last Visit- (Skip if this is Patient's initial visit) Have you changed medications since your No last visit? Any new allergies or adverse reactions No Had a fall/change in ADL's that may No increase risk of falls Signs or symptoms of abuse and/or No neglect since last visit Have you been in the hospital since your No last visit? Has dressing in place as prescribed Yes Has compression in place as prescribed N/A Has offloadiing in place as prescribed N/A Experienced any changes in pain level or No management Left Footwear Regular Shoe Right Footwear Regular Shoe Pain Scale: 0-10 Numeric Is Patient Pain Free? Yes - Nurse 1 - General Ulcer Measurement Start: 11/04/21 09:00 Freq: Status: Active Protocol: Activity Type Activity Date Activity User E-Sign Co-Sign Detail Recorded Client Recorded Date Recorded By Document 11/04/21 09:00 AMILCAR [id number] 11/04/21 09:10 KR 11/04/21 09:00 Wound Center Nurse 1 #2- R 1ST MET HEAD -Current Size (cm) - Length 0.9 -Current Size (cm) - Width 0.9 -Current Size (cm) - Depth 0.1 -Total Square Cm 0.81 -Exudate Amt Small -Exudate Type Serosanguineous -Wound Margin Distinct, Outline Attached -Granulation Amt Medium (34-66%) -Granulation Quality Red -Necrosis Amt Small (1-33%) -Necrotic Tissue Type Adherent Slough -Texture (Kathya-wound Skin Appearance) Assessed,Callus ,Scarring -Color (Kathya-wound Skin Appearance) No Abnormality, Assessed -Temperature (Kathya-wound Skin No Abnormality Appearance) (Pt Warm) -Tenderness on Palpation (Kathya-wound No Skin Appearance) -Ulcer Cleansing Rinsed/ Irrigated with Saline -Foul Odor after Cleansing No -Anesthetic Used 4% Lidocaine Solution Assessment/Plan Assessment/Plan (1) Non-pressure chronic ulcer of other part of right foot with fat layer exposed: CODE(S): L97.512 - Non-pressure chronic ulcer of other part of right foot with fat layer exposed (2) Non-pressure chronic ulcer of other part of left foot with fat layer exposed: CODE(S): L97.522 - Non-pressure chronic ulcer of other part of left foot with fat layer exposed (3) Callus of foot: CODE(S): L84 - Corns and callosities (4) Diabetes mellitus, type II: CODE(S): E11.9 - Type 2 diabetes mellitus without complications (5) Parkinsons disease: CODE(S): G20 - Parkinson's disease (6) Acute renal insufficiency: CODE(S): N28.9 - Disorder of kidney and ureter, unspecified (7) Generalized weakness: CODE(S): R53.1 - Weakness (8) Hypertension: CODE(S): I10 - Essential (primary) hypertension (9) HLD (hyperlipidemia): CODE(S): E78.5 - Hyperlipidemia, unspecified PLAN: This is a 75-year-old male who presents to the wound care center for follow-up of bilateral foot callus with wounds subfirst metatarsal head right foot and callus tissue subthird metatarsal head left foot and subfifth metatarsal head right foot complicated by diabetes mellitus type 2 with peripheral polyneuropathy, Parkinson's disease, acute renal insufficiency, hypertension, generalized weakness, and hyperlipidemia. His states they are continuing to change the dressings to his feet daily and trying to offload in his tennis shoes with diabetic inserts. Vascular status intact to bilateral lower extremities with palpable pedal pulses, DP and PT. Debridement of hyperkeratotic tissue subfifth metatarsal head right foot was performed with a #15 blade without incident. Site is stable with no localized signs of infection. Recommended continued use of urea 42% cream twice daily to the site to aid in reducing callus buildup. I recommend continued monitoring of the site as I have discussed with her that this could potentially become a wound if not properly offloaded. I recommended continued offloading with diabetic shoes with his protective inserts. subthird metatarsal head left foot demonstrates very little callus tissue buildup secondary to continued use of urea cream and his offloading and diabetic shoe inserts. Site continues to remain healed with intact healthy skin and no localized signs of infection. He is to continue applying urea 42% cream twice daily to the site to aid in reducing the callus buildup and continuing to offload with a diabetic shoe insert. Debridement of subfirst metatarsal head wound of the right foot performed with a #15 blade removing hyperkeratotic tissue, macerated tissue, biofilm, and slough. Debridement performed to the subcutaneous tissue level. Ulceration site is continuing to reduce in size and demonstrates no localized erythema, no purulent drainage, no malodor, no red streaking, or other localized signs of infection. Ulceration measures 0.9cm x 0.9cm x 0.1cm. Ulceration site dressed with Jaja with dry sterile dressing. Dressings are to be changed daily. I discussed again with the how the pressure sites on his feet form calluses which can contribute to wounds with continued shear forces. I discussed how calluses can also hide wounds. I recommend he continue wearing protective diabetic inserts to aid in offloading the sites and protect his foot. I reminded his to not apply 42% urea cream to the sub-first metatarsal head wound site as it will slow his healing. I have instructed her to only apply the Jaja and a dry sterile dressing and await for the wound to heal before continuing with urea 42%. I discussed with the patient and his today to continue to check his feet daily for any signs of wounds or pressure sites. I discussed with the patient and his that he is to remain in the diabetic shoes with inserts for proper offloading of the pressure sites and to not wear house sandals or house slippers or go barefoot. I discussed the localized signs of infection with the patient's and his today and instructed them if they notice any increased redness around the wound, purulent drainage, malodor, red streaking going up the leg, or if you experiences any nausea, vomiting, fever, chills to go to the emergency department for treatment as these are signs of a progressing infection. and patient voiced understanding of this. I reviewed and discussed his case today. Debridement was performed today as noted in the clinical panel to all of the ulcer sites. The following work up and care recommendations were made: Dressing: Jaja, dry sterile dressing to the subfirst metatarsal wound of the right foot Wash: Soap and water Tissue growth optimization: Jaja Offload: Diabetic shoe with inserts Vascular: Palpable pedal pulses Edema: No edema Infection: No localized signs of infection Pain: Patient may take [id number] Tylenol extra strength for any pain or discomfort Host factors: Diabetes mellitus type 2 with peripheral polyneuropathy, proper glycemic control offloading with diabetic patient shoes discussed I answered all the patient's questions. To return to the wound healing center in 1 week or call sooner if the patient has any questions or concerns. Note: [employer] speech recognition light rail vehicle operator software was used to create portions of this document. Sound-alike and misspelled words, as well as other light rail vehicle operator errors may be contained in the documentation.
[2021-11-11 09:17] VITALS: BP 111/60; PULSE 82; TEMP 35.7; BMI 21.2
--- NOTE | 2021-11-11 09:46 | PN.PCM_ITS ---
History of Present Illness Date of Service: 11/11/21 Chief Complaint: Foot wound History of Wound: 75-year-old male who was referred for evaluation relative to wounds on his feet. He has apparently been under the care of Dr. Cheung, podiatric specialist, recently, though no such medical records are available. According to the patient, and his , the patient was evaluated in Dr. Cheung's office, and the calluses on the plantar aspect of both feet were scraped. Bleeding was encountered. The patient indicates that he was then referred for further evaluation and management at the [facility]. The patient's pre-existing medical problems include diabe dalila mellitus, hyperlipidemia, Parkinson's disease, hypertension, debility, and generalized weakness. Subjective Subjective This is a 76-year-old male who presents for follow-up to the wound care center with a left foot subfirst metatarsal ulceration. He also has callus tissue subfourth metatarsal left foot and subthird metatarsal right foot. He is accompanied by a friend who is helping with her care. Steward/Stewardess Room says that Mr. Cardenas suffered a fall and a fracture. He states that his informs him that Mr. Cardenas has been compliant in wearing his diabetic foot inserts in his shoes. They have been applying the urea 42% cream to his callus sites and continue to dress his ulceration with Jaja daily. He continues to deny any nausea, vomiting, fever, chills, shortness of breath, or other constitutional symptoms. Objective Data Objective Data Vital Signs: Vital Signs Temp Pulse Resp BP 96.2 F L 82 18 111/60 11/11/21 09:17 11/11/21 09:17 10/26/21 00:15 11/11/21 09:17 Weight: 67.132 kg Body Mass Index (BMI) 21.2 Physical Exam Const alert, oriented x3 and no apparent distress General Appearance: cooperative and comfortable HEENT normocephalic Eyes General Eye: normal appearance of both eyes Neck General: normal visual inspection Lymph Lymphatic: no lymphadenopathy noted and no lymphedema noted Chest inspection of chest normal Resp normal respiratory effort Cardio regular rate and regular rhythm Skin no rashes or lesions noted and skin turgor normal Neuro oriented x3 and moves all extremities Motor Exam: strength 5/5 throughout and clonus absent Debridement Note Debridement Note Wound debrided: Subfirst metatarsal Laterality: Right Wound Grade/Stage: Owusu stage I Type of Debridement: Excisional debridement Anesthesia Used: 5% Lidocaine Gel Depth: in the subcutaneous layer Percentage of wound debrided: 100 Instrument Used: #15 blade Tissue Removed: Fibrous, devitalized subcutaneous, biofilm, slough Severity: Fat Layer Exposed Amount of bleeding with debridement: Mild Bleeding Controlled with: Pressure Patient tolerated procedure: Patient tolerated procedure well Post-Debridement Measurements and Additional Note: Post-Debridement Measurements/Treatment - Nurse 1 - General Ulcer Assessment Start: 11/04/21 09:00 Freq: Status: Active Protocol: TAMIR Activity Type Activity Date Activity User E-Sign Co-Sign Detail Recorded Client Recorded Date Recorded By Document 11/04/21 09:00 KR [id number] 11/04/21 09:10 KR Document 11/11/21 09:17 AK [id number] 11/11/21 09:19 AK 11/04/21 11/11/21 09:00 09:17 - Today's Visit Information Type of service Follow-up Visit Follow-up Visit (Physician/INCIDENT RESPONSE CONSULTANT (Physician/INCIDENT RESPONSE CONSULTANT ) ) Arrival Mode Ambulatory Ambulatory Patient Identification Verified (Name & Yes Yes ) Patient Requires Transmission-Based No Precautions Height and Weight Body Mass Index (BMI) 21.2 21.2 BMI Classification Normal Normal Vital Signs Temperature (97.8 F-99.1 F) 97.0 F L 96.2 F L Temperature Source Temporal Temporal Pulse Rate (60-100) 74 82 Pulse Location Monitor Monitor Blood Pressure (90/60-120/80) 107/60 111/60 Blood Pressure Mean (mm Hg) 75 77 Source Monitor Monitor Position Sitting Blood Pressure Location Left Arm History Since Last Visit- (Skip if this is Patient's initial visit) Have you changed medications since your No No last visit? Any new allergies or adverse reactions No No Had a fall/change in ADL's that may No No increase risk of falls Signs or symptoms of abuse and/or No No neglect since last visit Have you been in the hospital since your No last visit? Has dressing in place as prescribed Yes Yes Has compression in place as prescribed N/A N/A Has offloadiing in place as prescribed N/A N/A Experienced any changes in pain level or No No management Left Footwear Regular Shoe Regular Shoe Right Footwear Regular Shoe Regular Shoe Pain Scale: 0-10 Numeric Is Patient Pain Free? Yes Yes WC - Nurse 1 - General Ulcer Measurement Start: 11/04/21 09:00 Freq: Status: Active Protocol: Activity Type Activity Date Activity User E-Sign Co-Sign Detail Recorded Client Recorded Date Recorded By Document 11/04/21 09:00 KR [id number] 11/04/21 09:10 KR Document 11/11/21 09:17 AK [id number] 11/11/21 09:19 AK 11/04/21 11/11/21 09:00 09:17 Wound Center Nurse 1 #2- R 1ST MET HEAD -Combined with other wound No -Current Size (cm) - Length 0.9 0.5 -Current Size (cm) - Width 0.9 0.5 -Current Size (cm) - Depth 0.1 0.1 -Total Square Cm 0.81 0.25 -Photo Taken No -Epithelialization None Present -Tunneling No -Undermining/Tunneling No -Circular Undermining No -Exudate Amt Small Medium -Exudate Type Serosanguineous Serosanguineous -Wound Margin Distinct, Distinct, Outline Outline Attached Attached -Granulation Amt Medium (34-66%) Small (1-33%) -Granulation Quality Red N/A -Slough/Fibrin Yes -Necrosis Amt Small (1-33%) Small (1-33%) -Necrotic Tissue Type Adherent Slough Adherent Slough -Structure Exposed N/A -Texture (Kathya-wound Skin Appearance) Assessed,Callus Assessed,Callus ,Scarring -Color (Kathya-wound Skin Appearance) No Abnormality, No Abnormality, Assessed Assessed -Temperature (Kathya-wound Skin No Abnormality No Abnormality Appearance) (Pt Warm) (Pt Warm) -Tenderness on Palpation (Kathya-wound No No Skin Appearance) -Ulcer Cleansing Rinsed/ Rinsed/ Irrigated with Irrigated with Saline Saline -Foul Odor after Cleansing No -Anesthetic Used 4% Lidocaine 4% Lidocaine Solution Solution WC - Nurse 2 - General Ulcer CM Notes Start: 11/04/21 09:00 Freq: Status: Active Protocol: Activity Type Activity Date Activity User E-Sign Co-Sign Detail Recorded Client Recorded Date Recorded By Document 11/04/21 12:55 PL [id number] 11/04/21 12:58 PL 11/04/21 12:55 Wound Center Nurse 2 -Time 09:17 -Correct Patient Yes -Correct Side, Site, Position Yes -Correct Procedure Yes -Procedure Performed Yes -Type of Procedure Debridement -Clinical Debridement Subcutaneous -Tissue Removed Subcutaneous -Post Debridement (cm) - Length 0.9 -Post Debridement (cm) - Width 0.9 -Post Debridement (cm) - Depth 0.1 -Total Square (Post) (cm) 0.81 -Area of Debridement (cm) - Length 0.9 -Area of Debridement (cm) - Width 0.9 -Total Square (Area) (cm) 0.81 -Tunneling No -Undermining/Tunneling No -Circular Undermining No -Wound/Ulcer Outcome Not Healed -Ulcer Cleansing Rinsed/ Irrigated with Saline -Foul Odor after Cleansing No -Bioengineered Tissue No -Bleeding Controlled with Pressure -Treatment Response Procedure Tolerated Well -Debridement - Subq, 1st 20sq cm Yes Pain Scale: 0-10 Numeric Is Patient Pain Free? Yes - Nurse 3 - General Ulcer D/C NN Start: 11/04/21 09:00 Freq: Status: Active Protocol: Activity Type Activity Date Activity User E-Sign Co-Sign Detail Recorded Client Recorded Date Recorded By Document 11/04/21 09:49 KR [id number] 11/04/21 09:51 KR Document 11/11/21 09:42 RI [id number] 11/11/21 09:42 AK 11/04/21 11/11/21 09:49 09:42 Wound Care Nurse 3 #2- R 1ST MET HEAD -Ulcer Cleansing Rinsed/ Rinsed/ Irrigated with Irrigated with Saline Saline -Foul Odor after Cleansing No -Negative Pressure Wound Therapy N/A -Primary Dressing Applied Promogran Promogran Jaja Matter Jaja Matter -Primary Dressing Covered/Secured with Dry Gauze,Dry Dry Gauze, Gauze & Roll Secured with Gauze,Secured Tape with Tape -Promogran Jaja Matter 1 1 Pain Scale: 0-10 Numeric Is Patient Pain Free? Yes Yes WC - Visit Discharge Discharge Condition Stable Stable Ambulatory Status Ambulatory Ambulatory Transportation Private Auto Private Auto Accompanied by son son Medication Reconcilliation completed & Yes provided to patient/care provider Clinical Summary of Care Provided Yes Assessment/Plan Assessment/Plan (1) Non-pressure chronic ulcer of other part of right foot with fat layer exposed: CODE(S): L97.512 - Non-pressure chronic ulcer of other part of right foot with fat layer exposed (2) Non-pressure chronic ulcer of other part of left foot with fat layer exposed: CODE(S): L97.522 - Non-pressure chronic ulcer of other part of left foot with fat layer exposed (3) Callus of foot: CODE(S): L84 - Corns and callosities (4) Diabetes mellitus, type II: CODE(S): E11.9 - Type 2 diabetes mellitus without complications (5) Parkinsons disease: CODE(S): G20 - Parkinson's disease (6) Acute renal insufficiency: CODE(S): N28.9 - Disorder of kidney and ureter, unspecified (7) Generalized weakness: CODE(S): R53.1 - Weakness (8) Hypertension: CODE(S): I10 - Essential (primary) hypertension (9) HLD (hyperlipidemia): CODE(S): E78.5 - Hyperlipidemia, unspecified PLAN: This is a 75-year-old male who presents to the wound care center for follow-up of bilateral foot callus with wounds subfirst metatarsal head right foot and callus tissue subthird metatarsal head left foot and subfifth metatarsal head right foot complicated by diabetes mellitus type 2 with peripheral polyneuropathy, Parkinson's disease, acute renal insufficiency, hypertension, generalized weakness, and hyperlipidemia. His states they are continuing to change the dressings to his feet daily and trying to offload in his tennis shoes with diabetic inserts. Vascular status intact to bilateral lower extremities with palpable pedal pulses, DP and PT. Debridement of hyperkeratotic tissue subfifth metatarsal head right foot was performed with a #15 blade without incident. Site is stable with no localized signs of infection. Recommended continued use of urea 42% cream twice daily to the site to aid in reducing callus buildup. I recommend continued monitoring of the site as I have discussed with her that this could potentially become a wound if not properly offloaded. I recommended continued offloading with diabetic shoes with his protective inserts. subthird metatarsal head left foot demonstrates very little callus tissue buildup secondary to continued use of urea cream and his offloading and diabetic shoe inserts. Site continues to remain healed with intact healthy skin and no localized signs of infection. He is to continue applying urea 42% cream twice daily to the site to aid in reducing the callus buildup and continuing to offload with a diabetic shoe insert. Debridement of subfirst metatarsal head wound of the right foot performed with a #15 blade removing hyperkeratotic tissue, macerated tissue, biofilm, and slough. Debridement performed to the subcutaneous tissue level. Ulceration site is continuing to reduce in size and demonstrates no localized erythema, no purulent drainage, no malodor, no red streaking, or other localized signs of infection. Ulceration measures 0.5cm x 0.5cm x 0.1cm. Ulceration site dressed with Jaja with dry sterile dressing. Dressings are to be changed daily. I discussed again with the how the pressure sites on his feet form calluses which can contribute to wounds with continued shear forces. I discussed how calluses can also hide wounds. I recommend he continue wearing protective diabetic inserts to aid in offloading the sites and protect his foot. I reminded his to not apply 42% urea cream to the sub-first metatarsal head wound site as it will slow his healing. I have instructed her to only apply the Jaja and a dry sterile dressing and await for the wound to heal before continuing with urea 42%. I discussed with the patient and his today to continue to check his feet daily for any signs of wounds or pressure sites. I discussed with the patient and his that he is to remain in the diabetic shoes with inserts for proper offloading of the pressure sites and to not wear house sandals or house slippers or go barefoot. I discussed with them that the wounds are caused secondarily from pressure due to his atrophic fat pad at the forefoot and plantigrade metatarsals creating direct pressure at the forefoot and the pressure reduction is the fields to continued healing and prevention of recurrence of wounds. I discussed the localized signs of infection with the patient's and his today and instructed them if they notice any increased redness around the wound, purulent drainage, malodor, red streaking going up the leg, or if you experiences any nausea, vomiting, fever, chills to go to the emergency department for treatment as these are signs of a progressing infection. and patient voiced understanding of this. I reviewed and discussed his case today. Debridement was performed today as noted in the clinical panel to all of the ulcer sites. The following work up and care recommendations were made: Dressing: Jaja, dry sterile dressing to the subfirst metatarsal wound of the right foot Wash: Soap and water Tissue growth optimization: Jaja Offload: Diabetic shoe with inserts Vascular: Palpable pedal pulses Edema: No edema Infection: No localized signs of infection Pain: Patient may take [id number] Tylenol extra strength for any pain or discomfort Host factors: Diabetes mellitus type 2 with peripheral polyneuropathy, proper glycemic control offloading with diabetic patient shoes discussed I answered all the patient's questions. To return to the wound healing center in 1 week or call sooner if the patient has any questions or concerns. Note: [employer] speech recognition business intern software was used to create portions of this document. Sound-alike and misspelled words, as well as other business intern errors may be contained in the documentation.
[2021-11-18 08:12] VITALS: BP 125/63; PULSE 79; RESP 18; TEMP 35.1; BMI 21.2
--- NOTE | 2021-11-18 08:44 | PCM.WC.PN ---
History of Present Illness Date of Service: 11/18/21 Chief Complaint: Foot wound History of Wound: 75-year-old male who was referred for evaluation relative to wounds on his feet. He has apparently been under the care of Dr. Cheung, podiatric specialist, recently, though no such medical records are available. According to the patient, and his , the patient was evaluated in Dr. Cheung's office, and the calluses on the plantar aspect of both feet were scraped. Bleeding was encountered. The patient indicates that he was then referred for further evaluation and management at the [facility]. The patient's pre-existing medical problems include diabetes mellitus, hyperlipidemia, Parkinson's disease, hypertension, debility, and generalized weakness. Subjective Subjective This is a 76-year-old male who presents for follow-up to the wound care center with a left foot subfirst metatarsal ulceration. He also has callus tissue subfourth metatarsal left foot and subthird metatarsal right foot, with history of ulceration at these sites. He is accompanied by a friend who is helping with his care. Field Spec says that Mr. Cardenas suffered a fall and a fracture. He states that his informs him that Mr. Cardenas has been compliant in wearing his diabetic foot inserts in his shoes. They have been applying the urea 42% cream to his callus sites and continue to dress his ulceration with Jaja daily. He continues to deny any nausea, vomiting, fever, chills, shortness of breath, or other constitutional symptoms Objective Data Objective Data Vital Signs: Vital Signs Temp Pulse Resp BP 95.1 F L 79 18 125/63 H 11/18/21 08:12 11/18/21 08:12 11/18/21 08:12 11/18/21 08:12 Weight: 67.132 kg Body Mass Index (BMI) 21.2 Physical Exam Const alert, oriented x3 and no apparent distress General Appearance: cooperative and comfortable HEENT normocephalic Eyes General Eye: normal appearance of both eyes Neck General: normal visual inspection Lymph Lymphatic: no lymphadenopathy noted and no lymphedema noted Chest inspection of chest normal Resp normal respiratory effort Cardio regular rate and regular rhythm Skin no rashes or lesions noted and skin turgor normal Neuro oriented x3 and moves all extremities Motor Exam: strength 5/5 throughout and clonus absent Debridement Note Debridement Note Wound debrided: Right subfirst metatarsal Laterality: Right Wound Grade/Stage: [place] stage I Type of Debridement: Excisional debridement Anesthesia Used: 5% Lidocaine Gel Depth: in the subcutaneous layer Percentage of wound debrided: 100 Instrument Used: #15 blade Tissue Removed: Fibrous, devitalized subcutaneous, biofilm, slough Severity: Fat Layer Exposed Amount of bleeding with debridement: Mild Bleeding Controlled with: Pressure and Silver Nitrate Patient tolerated procedure: Patient tolerated procedure well Post-Debridement Measurements and Additional Note: Post-Debridement Measurements/Treatment - Nurse 1 - General Ulcer Assessment Start: 11/04/21 09:00 Freq: Status: Active Protocol: TAMIR Activity Type Activity Date Activity User E-Sign Co-Sign Detail Recorded Client Recorded Date Recorded By Document 11/04/21 09:00 KR [id number] 11/04/21 09:10 KR Document 11/11/21 09:17 AK [id number] 11/11/21 09:19 AK Document 11/18/21 08:12 SIMRAN [id number] 11/18/21 08:13 SIMRAN 11/04/21 11/11/21 11/18/21 09:00 09:17 08:12 - Today's Visit Information Type of service Follow-up Visit Follow-up Visit Follow-up Visit (Physician/WAREHOUSE PERSON (Physician/WAREHOUSE PERSON (Physician/WAREHOUSE PERSON ) ) ) Arrival Mode Ambulatory Ambulatory Ambulatory Patient Identification Verified (Name & Yes Yes Yes ) Patient Requires Transmission-Based No No Precautions Finger Stick Blood Sugar(mg/dl) (if 120 indicated): Blood Sugar Stated by Patient Height and Weight Body Mass Index (BMI) 21.2 21.2 21.2 BMI Classification Normal Normal Normal Vital Signs Temperature (97.8 F-99.1 F) 97.0 F L 96.2 F L 95.1 F L Temperature Source Temporal Temporal Temporal Pulse Rate (60-100) 74 82 79 Pulse Location Monitor Monitor Monitor Respiratory Rate (12-18) 18 Respiratory rate source Observation Blood Pressure (90/60-120/80) 107/60 111/60 125/63 H Blood Pressure Mean (mm Hg) 75 77 83 Source Monitor Monitor Monitor Position Sitting Semi-Fowlers Blood Pressure Location Left Arm Left Arm History Since Last Visit- (Skip if this is Patient's initial visit) Have you changed medications since your No No No last visit? Any new allergies or adverse reactions No No No Had a fall/change in ADL's that may No No No increase risk of falls Signs or symptoms of abuse and/or No No No neglect since last visit Have you been in the hospital since your No No last visit? Has dressing in place as prescribed Yes Yes No Has compression in place as prescribed N/A N/A N/A Has offloadiing in place as prescribed N/A N/A Yes Experienced any changes in pain level or No No No management Left Footwear Regular Shoe Regular Shoe Regular Shoe Right Footwear Regular Shoe Regular Shoe Regular Shoe Pain Scale: 0-10 Numeric Is Patient Pain Free? Yes Yes Yes WC - Nurse 1 - General Ulcer Measurement Start: 11/04/21 09:00 Freq: Status: Active Protocol: Activity Type Activity Date Activity User E-Sign Co-Sign Detail Recorded Client Recorded Date Recorded By Document 11/04/21 09:00 KR [id number] 11/04/21 09:10 KR Document 11/11/21 09:17 AK [id number] 11/11/21 09:19 AK Document 11/18/21 08:12 JF [id number] 11/18/21 08:13 JF 11/04/21 11/11/21 11/18/21 09:00 09:17 08:12 Wound Center Nurse 1 #2- R 1ST MET HEAD -Combined with other wound No No -Current Size (cm) - Length 0.9 0.5 0.1 -Current Size (cm) - Width 0.9 0.5 0.4 -Current Size (cm) - Depth 0.1 0.1 0.2 -Total Square Cm 0.81 0.25 0.04 -Photo Taken No No -Epithelialization None Present Small 1-33% -Tunneling No No -Undermining/Tunneling No No -Circular Undermining No No -Exudate Amt Small Medium Small -Exudate Type Serosanguineous Serosanguineous Serosanguineous -Wound Margin Distinct, Distinct, Indistinct, Non Outline Outline -Visible Attached Attached -Granulation Amt Medium (34-66%) Small (1-33%) Small (1-33%) -Granulation Quality Red N/A [place] -Slough/Fibrin Yes Yes -Necrosis Amt Small (1-33%) Small (1-33%) Small (1-33%) -Necrotic Tissue Type Adherent Slough Adherent Slough Adherent Slough -Structure Exposed N/A N/A -Texture (Kathya-wound Skin Appearance) Assessed,Callus Assessed,Callus Assessed,Callus ,Scarring -Moisture (Kathya-wound Skin Appearance) Assessed,Dry/ Scaly -Color (Kathya-wound Skin Appearance) No Abnormality, No Abnormality, Assessed Assessed Assessed -Temperature (Kathya-wound Skin No Abnormality No Abnormality No Abnormality Appearance) (Pt Warm) (Pt Warm) (Pt Warm) -Tenderness on Palpation (Kathya-wound No No No Skin Appearance) -Ulcer Cleansing Rinsed/ Rinsed/ Rinsed/ Irrigated with Irrigated with Irrigated with Saline Saline Saline -Foul Odor after Cleansing No No -Anesthetic Used 4% Lidocaine 4% Lidocaine 4% Lidocaine Solution Solution Solution Lower Limb Edema Present NA WC - Nurse 2 - General Ulcer CM Notes Start: 11/04/21 09:00 Freq: Status: Active Protocol: Activity Type Activity Date Activity User E-Sign Co-Sign Detail Recorded Client Recorded Date Recorded By Document 11/04/21 12:55 PL [id number] 11/04/21 12:58 PL Document 11/11/21 15:31 PL [id number] 11/11/21 15:32 PL 11/04/21 11/11/21 12:55 15:31 Wound Center Nurse 2 #2- R 1ST MET HEAD -Time 09:17 09:23 -Correct Patient Yes Yes -Correct Side, Site, Position Yes Yes -Correct Procedure Yes Yes -Procedure Performed Yes Yes -Type of Procedure Debridement Debridement -Clinical Debridement Subcutaneous Subcutaneous -Tissue Removed Subcutaneous Subcutaneous -Post Debridement (cm) - Length 0.9 0.5 -Post Debridement (cm) - Width 0.9 0.5 -Post Debridement (cm) - Depth 0.1 0.1 -Total Square (Post) (cm) 0.81 0.25 -Area of Debridement (cm) - Length 0.9 0.5 -Area of Debridement (cm) - Width 0.9 0.5 -Total Square (Area) (cm) 0.81 0.25 -Tunneling No No -Undermining/Tunneling No No -Circular Undermining No No -Wound/Ulcer Outcome Not Healed Not Healed -Ulcer Cleansing Rinsed/ Rinsed/ Irrigated with Irrigated with Saline Saline -Foul Odor after Cleansing No No -Bioengineered Tissue No No -Bleeding Controlled with Pressure Pressure -Treatment Response Procedure Procedure Tolerated Well Tolerated Well -Debridement - Subq, 1st 20sq cm Yes Yes Pain Scale: 0-10 Numeric Is Patient Pain Free? Yes Yes - Nurse 3 - General Ulcer D/C NN Start: 11/04/21 09:00 Freq: Status: Active Protocol: Activity Type Activity Date Activity User E-Sign Co-Sign Detail Recorded Client Recorded Date Recorded By Document 11/04/21 09:49 KR [id number] 11/04/21 09:51 KR Document 11/11/21 09:42 AK [id number] 11/11/21 09:42 AK 11/04/21 11/11/21 09:49 09:42 Wound Care Nurse 3 #2- R 1ST MET HEAD -Ulcer Cleansing Rinsed/ Rinsed/ Irrigated with Irrigated with Saline Saline -Foul Odor after Cleansing No -Negative Pressure Wound Therapy N/A -Primary Dressing Applied Promogran Promogran Jaja Matter Jaja Matter -Primary Dressing Covered/Secured with Dry Gauze,Dry Dry Gauze, Gauze & Roll Secured with Gauze,Secured Tape with Tape -Promogran Jaja Matter 1 1 Pain Scale: 0-10 Numeric Is Patient Pain Free? Yes Yes - Visit Discharge Discharge Condition Stable Stable Ambulatory Status Ambulatory Ambulatory Transportation Private Auto Private Auto Accompanied by son son Medication Reconcilliation completed & Yes provided to patient/care provider Clinical Summary of Care Provided Yes Assessment/Plan Assessment/Plan (1) Non-pressure chronic ulcer of other part of right foot with fat layer exposed: CODE(S): L97.512 - Non-pressure chronic ulcer of other part of right foot with fat layer exposed (2) Non-pressure chronic ulcer of other part of left foot with fat layer exposed: CODE(S): L97.522 - Non-pressure chronic ulcer of other part of left foot with fat layer exposed (3) Callus of foot: CODE(S): L84 - Corns and callosities (4) Diabetes mellitus, type II: CODE(S): E11.9 - Type 2 diabetes mellitus without complications (5) Parkinsons disease: CODE(S): G20 - Parkinson's disease (6) Acute renal insufficiency: CODE(S): N28.9 - Disorder of kidney and ureter, unspecified (7) Generalized weakness: CODE(S): R53.1 - Weakness (8) Hypertension: CODE(S): I10 - Essential (primary) hypertension (9) HLD (hyperlipidemia): CODE(S): E78.5 - Hyperlipidemia, unspecified PLAN: This is a 75-year-old male who presents to the wound care center for follow-up of bilateral foot callus with wounds subfirst metatarsal head right foot and callus tissue subthird metatarsal head left foot and subfifth metatarsal head right foot complicated by diabetes mellitus type 2 with peripheral polyneuropathy, Parkinson's disease, acute renal insufficiency, hypertension, generalized weakness, and hyperlipidemia. His states they are continuing to change the dressings to his feet daily and trying to offload in his tennis shoes with diabetic inserts. Vascular status intact to bilateral lower extremities with palpable pedal pulses, DP and PT. Debridement of hyperkeratotic tissue subfifth metatarsal head right foot was performed with a #15 blade without incident. Site is stable with no localized signs of infection. Recommended continued use of urea 42% cream twice daily to the site to aid in reducing callus buildup. He has history of an ulceration at this site and I recommend continued monitoring of the site as I have discussed with her that this could potentially become a wound if not properly offloaded. I recommended continued offloading with diabetic shoes with his protective inserts. subthird metatarsal head left foot demonstrates very little callus tissue buildup secondary to continued use of urea cream and his offloading and diabetic shoe inserts. Site continues to remain healed with intact healthy skin and no localized signs of infection. He is to continue applying urea 42% cream twice daily to the site to aid in reducing the callus buildup and continuing to offload with a diabetic shoe insert. Debridement of subfirst metatarsal head wound of the right foot performed with a #15 blade removing hyperkeratotic tissue, macerated tissue, biofilm, and slough. Debridement performed to the subcutaneous tissue level. Ulceration site is continuing to reduce in size and demonstrates no localized erythema, no purulent drainage, no malodor, no red streaking, or other localized signs of infection. Ulceration measures 0.1cm x 0.4cm x 0.1cm and is nearing closure. Ulceration site dressed with Jaja with dry sterile dressing. Dressings are to be changed daily. I discussed again with the child care centre director and how the pressure sites on his feet form calluses which can contribute to wounds with continued shear forces. I discussed how calluses can also hide wounds. I recommend he continue wearing protective diabetic inserts to aid in offloading the sites and protect his foot. I reminded his to not apply 42% urea cream to the sub-first metatarsal head wound site as it will slow his healing. I have instructed her to only apply the Jaja and a dry sterile dressing and await for the wound to heal before continuing with urea 42%. I discussed with the patient and his today to continue to check his feet daily for any signs of wounds or pressure sites. I discussed with the patient and his that he is to remain in the diabetic shoes with inserts for proper offloading of the pressure sites and to not wear house sandals or house slippers or go barefoot. I discussed with them that his wounds are caused secondarily from pressure due to his atrophic fat pad at the forefoot and plantigrade metatarsals creating direct pressure at the forefoot and the pressure reduction is the fields to continued healing and prevention of recurrence of wounds. I discussed the localized signs of infection with the patient's and his today and instructed them if they notice any increased redness around the wound, purulent drainage, malodor, red streaking going up the leg, or if you experiences any nausea, vomiting, fever, chills to go to the emergency department for treatment as these are signs of a progressing infection. and patient voiced understanding of this. I reviewed and discussed his case today. Debridement was performed today as noted in the clinical panel to all of the ulcer sites. The following work up and care recommendations were made: Dressing: Jaja, dry sterile dressing to the subfirst metatarsal wound of the right foot Wash: Soap and water Tissue growth optimization: Jaja Offload: Diabetic shoe with inserts Vascular: Palpable pedal pulses Edema: No edema Infection: No localized signs of infection Pain: Patient may take [id number] Tylenol extra strength for any pain or discomfort Host factors: Diabetes mellitus type 2 with peripheral polyneuropathy, proper glycemic control offloading with diabetic patient shoes discussed I answered all the patient's questions. To return to the wound healing center in 1 week or call sooner if the patient has any questions or concerns. Note: [employer] speech recognition power generating plant operator software was used to create portions of this document. Sound-alike and misspelled words, as well as other power generating plant operator errors may be contained in the documentation.
[2021-11-25 08:29] VITALS: BP 114/62; PULSE 71; TEMP 35.8; BMI 21.2
--- NOTE | 2021-11-25 09:11 | PN.PCM_ITS ---
History of Present Illness Date of Service: 11/25/21 Chief Complaint: Foot wound History of Wound: 75-year-old male who was referred for evaluation relative to wounds on his feet. He has apparently been under the care of Dr. Cheung, podiatric specialist, recently, though no such medical records are available. According to the patient, and his , the patient was evaluated in Dr. Cheung's office, and the calluses on the plantar aspect of both feet were scraped. Bleeding was encountered. The patient indicates that he was then referred for further evaluation and management at the [facility]. The patient's pre-existing medical problems include diabe dalila mellitus, hyperlipidemia, Parkinson's disease, hypertension, debility, and generalized weakness. Subjective Subjective This is a 76-year-old male who presents for follow-up to the wound care center with a left foot subfirst metatarsal ulceration. He also has callus tissue subfourth metatarsal left foot and subthird metatarsal right foot, with history of ulceration at these sites. He is accompanied by a friend who is helping with his care. He is remaining compliant wearing his diabetic shoes with inserts.. They have been applying the urea 42% cream to his callus sites and continue to dress his ulceration with Jaja daily. He continues to deny any nausea, vomiting, fever, chills, shortness of breath, or other constitutional symptoms Objective Data Objective Data Vital Signs: Vital Signs Temp Pulse Resp BP 96.5 F L 71 18 114/62 11/25/21 08:29 11/25/21 08:29 11/18/21 08:12 11/25/21 08:29 Weight: 67.132 kg Body Mass Index (BMI) 21.2 Physical Exam Const alert, oriented x3 and no apparent distress General Appearance: cooperative and comfortable HEENT normocephalic Eyes General Eye: normal appearance of both eyes Neck General: normal visual inspection Lymph Lymphatic: no lymphadenopathy noted and no lymphedema noted Chest inspection of chest normal Resp normal respiratory effort Cardio regular rate and regular rhythm Skin no rashes or lesions noted and skin turgor normal Neuro oriented x3 and moves all extremities Motor Exam: strength 5/5 throughout and clonus absent Debridement Note Debridement Note Wound debrided: Subfirst metatarsal head Laterality: Right Wound Grade/Stage: [place] stage I Type of Debridement: Excisional debridement Anesthesia Used: 5% Lidocaine Gel Depth: Down to and including healthy tissue and in the subcutaneous layer Percentage of wound debrided: 100 Instrument Used: - (#313 blade) Tissue Removed: Fibrous, devitalized subcutaneous, biofilm, slough, hyperkeratotic tissue Severity: Fat Layer Exposed Amount of bleeding with debridement: Mild Bleeding Controlled with: Pressure Patient tolerated procedure: Patient tolerated procedure well Post-Debridement Measurements and Additional Note: Post-Debridement Measurements/Treatment - Nurse 1 - General Ulcer Assessment Start: 11/04/21 09:00 Freq: Status: Active Protocol: TAMIR Activity Type Activity Date Activity User E-Sign Co-Sign Detail Recorded Client Recorded Date Recorded By Document 11/04/21 09:00 KR [id number] 11/04/21 09:10 KR Document 11/11/21 09:17 AK [id number] 11/11/21 09:19 AK Document 11/18/21 08:12 JF [id number] 11/18/21 08:13 JF Document 11/25/21 08:29 KR [id number] 11/25/21 08:30 KR 11/04/21 11/11/21 11/18/21 09:00 09:17 08:12 - Today's Visit Information Type of service Follow-up Visit Follow-up Visit Follow-up Visit (Physician/GROUND TRANSPORTATION OPERATOR (Physician/GROUND TRANSPORTATION OPERATOR (Physician/GROUND TRANSPORTATION OPERATOR ) ) ) Arrival Mode Ambulatory Ambulatory Ambulatory Patient Identification Verified (Name & Yes Yes Yes ) Patient Requires Transmission-Based No No Precautions Finger Stick Blood Sugar(mg/dl) (if 120 indicated): Blood Sugar Stated by Patient Height and Weight Body Mass Index (BMI) 21.2 21.2 21.2 BMI Classification Normal Normal Normal Vital Signs Temperature (97.8 F-99.1 F) 97.0 F L 96.2 F L 95.1 F L Temperature Source Temporal Temporal Temporal Pulse Rate (60-100) 74 82 79 Pulse Location Monitor Monitor Monitor Respiratory Rate (12-18) 18 Respiratory rate source Observation Blood Pressure (90/60-120/80) 107/60 111/60 125/63 H Blood Pressure Mean (mm Hg) 75 77 83 Source Monitor Monitor Monitor Position Sitting Semi-Fowlers Blood Pressure Location Left Arm Left Arm History Since Last Visit- (Skip if this is Patient's initial visit) Have you changed medications since your No No No last visit? Any new allergies or adverse reactions No No No Had a fall/change in ADL's that may No No No increase risk of falls Signs or symptoms of abuse and/or No No No neglect since last visit Have you been in the hospital since your No No last visit? Has dressing in place as prescribed Yes Yes No Has compression in place as prescribed N/A N/A N/A Has offloadiing in place as prescribed N/A N/A Yes Experienced any changes in pain level or No No No management Left Footwear Regular Shoe Regular Shoe Regular Shoe Right Footwear Regular Shoe Regular Shoe Regular Shoe Pain Scale: 0-10 Numeric Is Patient Pain Free? Yes Yes Yes 11/25/21 08:29 - Today's Visit Information Type of service Follow-up Visit (Physician/GROUND TRANSPORTATION OPERATOR ) Arrival Mode Ambulatory,Cane Patient Identification Verified (Name & Yes ) Patient Requires Transmission-Based Precautions Finger Stick Blood Sugar(mg/dl) (if indicated): Blood Sugar Height and Weight Body Mass Index (BMI) 21.2 BMI Classification Normal Vital Signs Temperature (97.8 F-99.1 F) 96.5 F L Temperature Source Temporal Pulse Rate (60-100) 71 Pulse Location Monitor Respiratory Rate (12-18) Respiratory rate source Blood Pressure (90/60-120/80) 114/62 Blood Pressure Mean (mm Hg) 79 Source Monitor Position Sitting Blood Pressure Location Right Arm History Since Last Visit- (Skip if this is Patient's initial visit) Have you changed medications since your No last visit? Any new allergies or adverse reactions No Had a fall/change in ADL's that may No increase risk of falls Signs or symptoms of abuse and/or No neglect since last visit Have you been in the hospital since your No last visit? Has dressing in place as prescribed Yes Has compression in place as prescribed N/A Has offloadiing in place as prescribed N/A Experienced any changes in pain level or No management Left Footwear Regular Shoe Right Footwear Regular Shoe Pain Scale: 0-10 Numeric Is Patient Pain Free? Yes - Nurse 1 - General Ulcer Measurement Start: 11/04/21 09:00 Freq: Status: Active Protocol: Activity Type Activity Date Activity User E-Sign Co-Sign Detail Recorded Client Recorded Date Recorded By Document 11/04/21 09:00 KR [id number] 11/04/21 09:10 KR Document 11/11/21 09:17 AK [id number] 11/11/21 09:19 AK Document 11/18/21 08:12 JF [id number] 11/18/21 08:13 JF Document 11/25/21 08:29 KR [id number] 11/25/21 08:30 KR 11/04/21 11/11/21 11/18/21 09:00 09:17 08:12 Wound Center Nurse 1 #2- R 1ST MET HEAD -Combined with other wound No No -Current Size (cm) - Length 0.9 0.5 0.1 -Current Size (cm) - Width 0.9 0.5 0.4 -Current Size (cm) - Depth 0.1 0.1 0.2 -Total Square Cm 0.81 0.25 0.04 -Photo Taken No No -Epithelialization None Present Small 1-33% -Tunneling No No -Undermining/Tunneling No No -Circular Undermining No No -Exudate Amt Small Medium Small -Exudate Type Serosanguineous Serosanguineous Serosanguineous -Wound Margin Distinct, Distinct, Indistinct, Non Outline Outline -Visible Attached Attached -Granulation Amt Medium (34-66%) Small (1-33%) Small (1-33%) -Granulation Quality Red N/A [place] -Slough/Fibrin Yes Yes -Necrosis Amt Small (1-33%) Small (1-33%) Small (1-33%) -Necrotic Tissue Type Adherent Slough Adherent Slough Adherent Slough -Structure Exposed N/A N/A -Texture (Kathya-wound Skin Appearance) Assessed,Callus Assessed,Callus Assessed,Callus ,Scarring -Moisture (Kathya-wound Skin Appearance) Assessed,Dry/ Scaly -Color (Kathya-wound Skin Appearance) No Abnormality, No Abnormality, Assessed Assessed Assessed -Temperature (Kathya-wound Skin No Abnormality No Abnormality No Abnormality Appearance) (Pt Warm) (Pt Warm) (Pt Warm) -Tenderness on Palpation (Kathya-wound No No No Skin Appearance) -Ulcer Cleansing Rinsed/ Rinsed/ Rinsed/ Irrigated with Irrigated with Irrigated with Saline Saline Saline -Foul Odor after Cleansing No No -Anesthetic Used 4% Lidocaine 4% Lidocaine 4% Lidocaine Solution Solution Solution Lower Limb Edema Present NA 11/25/21 08:29 Wound Center Nurse 1 #2- R 1ST MET HEAD -Combined with other wound -Current Size (cm) - Length 0.3 -Current Size (cm) - Width 0.4 -Current Size (cm) - Depth 0.1 -Total Square Cm 0.12 -Photo Taken -Epithelialization -Tunneling -Undermining/Tunneling -Circular Undermining -Exudate Amt Small -Exudate Type Serosanguineous -Wound Margin Distinct, Outline Attached -Granulation Amt Small (1-33%) -Granulation Quality Red -Slough/Fibrin -Necrosis Amt None Present (0 %) -Necrotic Tissue Type -Structure Exposed -Texture (Kathya-wound Skin Appearance) Assessed, Scarring -Moisture (Kathya-wound Skin Appearance) No Abnormality, Assessed -Color (Kathya-wound Skin Appearance) No Abnormality, Assessed -Temperature (Kathya-wound Skin No Abnormality Appearance) (Pt Warm) -Tenderness on Palpation (Kathya-wound No Skin Appearance) -Ulcer Cleansing Rinsed/ Irrigated with Saline -Foul Odor after Cleansing No -Anesthetic Used 4% Lidocaine Solution Lower Limb Edema Present WC - Nurse 2 - General Ulcer CM Notes Start: 11/04/21 09:00 Freq: Status: Active Protocol: Activity Type Activity Date Activity User E-Sign Co-Sign Detail Recorded Client Recorded Date Recorded By Document 11/04/21 12:55 PL [id number] 11/04/21 12:58 PL Document 11/11/21 15:31 PL [id number] 11/11/21 15:32 PL Document 11/18/21 08:54 PL Desktop 11/18/21 08:55 PL Document 11/25/21 08:48 PL Desktop 11/25/21 08:49 PL 11/04/21 11/11/21 11/18/21 12:55 15:31 08:54 Wound Center Nurse 2 #2- R 1ST MET HEAD -Time 09:17 09:23 08:30 -Correct Patient Yes Yes Yes -Correct Side, Site, Position Yes Yes Yes -Correct Procedure Yes Yes Yes -Procedure Performed Yes Yes Yes -Type of Procedure Debridement Debridement Debridement -Clinical Debridement Subcutaneous Subcutaneous Subcutaneous -Tissue Removed Subcutaneous Subcutaneous Subcutaneous -Post Debridement (cm) - Length 0.9 0.5 0.1 -Post Debridement (cm) - Width 0.9 0.5 0.4 -Post Debridement (cm) - Depth 0.1 0.1 0.2 -Total Square (Post) (cm) 0.81 0.25 0.04 -Area of Debridement (cm) - Length 0.9 0.5 0.1 -Area of Debridement (cm) - Width 0.9 0.5 0.4 -Total Square (Area) (cm) 0.81 0.25 0.04 -Tunneling No No No -Undermining/Tunneling No No No -Circular Undermining No No No -Wound/Ulcer Outcome Not Healed Not Healed Not Healed -Ulcer Cleansing Rinsed/ Rinsed/ Rinsed/ Irrigated with Irrigated with Irrigated with Saline Saline Saline -Foul Odor after Cleansing No No No -Bioengineered Tissue No No No -Bleeding Controlled with Pressure Pressure Pressure -Treatment Response Procedure Procedure Procedure Tolerated Well Tolerated Well Tolerated Well -Debridement - Subq, 1st 20sq cm Yes Yes Yes Pain Scale: 0-10 Numeric Is Patient Pain Free? Yes Yes Yes 11/25/21 08:48 Wound Center Nurse 2 #2- R 1ST MET HEAD -Time 08:34 -Correct Patient Yes -Correct Side, Site, Position Yes -Correct Procedure Yes -Procedure Performed Yes -Type of Procedure Debridement -Clinical Debridement Subcutaneous -Tissue Removed Subcutaneous -Post Debridement (cm) - Length 0.3 -Post Debridement (cm) - Width 0.4 -Post Debridement (cm) - Depth 0.1 -Total Square (Post) (cm) 0.12 -Area of Debridement (cm) - Length 0.3 -Area of Debridement (cm) - Width 0.4 -Total Square (Area) (cm) 0.12 -Tunneling No -Undermining/Tunneling No -Circular Undermining No -Wound/Ulcer Outcome Not Healed -Ulcer Cleansing Rinsed/ Irrigated with Saline -Foul Odor after Cleansing No -Bioengineered Tissue No -Bleeding Controlled with -Treatment Response -Debridement - Subq, 1st 20sq cm Yes Pain Scale: 0-10 Numeric Is Patient Pain Free? Yes WC - Nurse 3 - General Ulcer D/C NN Start: 11/04/21 09:00 Freq: Status: Active Protocol: Activity Type Activity Date Activity User E-Sign Co-Sign Detail Recorded Client Recorded Date Recorded By Document 11/04/21 09:49 KR [id number] 11/04/21 09:51 KR Document 11/11/21 09:42 AK [id number] 11/11/21 09:42 AK Document 11/18/21 08:44 AK [id number] 11/18/21 08:45 AK 11/04/21 11/11/21 11/18/21 09:49 09:42 08:44 Wound Care Nurse 3 #2- R 1ST MET HEAD -Ulcer Cleansing Rinsed/ Rinsed/ Rinsed/ Irrigated with Irrigated with Irrigated with Saline Saline Saline -Foul Odor after Cleansing No No -Negative Pressure Wound Therapy N/A N/A -Primary Dressing Applied Promogran Promogran Promogran Jaja Matter Jaja Matter Jaja Matter -Primary Dressing Covered/Secured with Dry Gauze,Dry Dry Gauze, Dry Gauze, Gauze & Roll Secured with Secured with Gauze,Secured Tape Tape with Tape -Promogran Jaja Matter 1 1 1 Pain Scale: 0-10 Numeric Is Patient Pain Free? Yes Yes Yes WC - Visit Discharge Discharge Condition Stable Stable Stable Ambulatory Status Ambulatory Ambulatory Ambulatory Transportation Private Auto Private Auto Private Auto Accompanied by son son son in law Medication Reconcilliation completed & Yes Yes provided to patient/care provider Clinical Summary of Care Provided Yes Yes Notes: incontinent in office Assessment/Plan Assessment/Plan (1) Non-pressure chronic ulcer of other part of right foot with fat layer exposed: CODE(S): L97.512 - Non-pressure chronic ulcer of other part of right foot with fat layer exposed (2) Non-pressure chronic ulcer of other part of left foot with fat layer exposed: CODE(S): L97.522 - Non-pressure chronic ulcer of other part of left foot with fat layer exposed (3) Callus of foot: CODE(S): L84 - Corns and callosities (4) Diabetes mellitus, type II: CODE(S): E11.9 - Type 2 diabetes mellitus without complications (5) Parkinsons disease: CODE(S): G20 - Parkinson's disease (6) Acute renal insufficiency: CODE(S): N28.9 - Disorder of kidney and ureter, unspecified (7) Generalized weakness: CODE(S): R53.1 - Weakness (8) Hypertension: CODE(S): I10 - Essential (primary) hypertension (9) HLD (hyperlipidemia): CODE(S): E78.5 - Hyperlipidemia, unspecified PLAN: This is a 75-year-old male who presents to the wound care center for follow-up of bilateral foot callus with wounds subfirst metatarsal head right foot and callus tissue subthird metatarsal head left foot and subfifth metatarsal head right foot complicated by diabetes mellitus type 2 with peripheral polyneuropathy, Parkinson's disease, acute renal insufficiency, hypertension, generalized weakness, and hyperlipidemia. His states they are continuing to change the dressings to his feet daily and trying to offload in his tennis shoes with diabetic inserts. Vascular status intact to bilateral lower extremities with palpable pedal pulses, DP and PT. subfifth metatarsal head right demonstrates very little callus tissue buildup. Site remains healed with no localized signs of infection. subthird metatarsal head left foot demonstrates very little callus tissue buildup secondary to continued use of urea cream and his offloading and diabetic shoe inserts. Site continues to remain healed with intact healthy skin and no localized signs of infection. Recommend continued application of urea 42% to right foot subfifth and left foot subthird callus tissue. Debridement of subfirst metatarsal head wound of the right foot performed with a #15 blade removing hyperkeratotic tissue, macerated tissue, biofilm, and slough. Debridement performed to the subcutaneous tissue level. Ulceration site is continuing to reduce in size and demonstrates no localized erythema, no purulent drainage, no malodor, no red streaking, or other localized signs of infection. Ulceration measures 0.3cm x 0.4cm x 0.1cm and is nearing closure. Ulceration site dressed with Jaja with dry sterile dressing. Dressings are to be changed daily. I discussed again with the manager critical care and how the pressure sites on his feet form calluses which can contribute to wounds with continued shear forces. I discussed how calluses can also hide wounds. I recommend he continue wearing protective diabetic inserts to aid in offloading the sites and protect his foot. I discussed with the patient and his today to continue to check his feet daily for any signs of wounds or pressure sites. I discussed with the patient and his that he is to remain in the diabetic shoes with inserts for proper offloading of the pressure sites and to not wear house sandals or house slippers or go barefoot. I discussed with them that his wounds are caused secondarily from pressure due to his atrophic fat pad at the forefoot and plantigrade metatarsals creating direct pressure at the forefoot and the pressure reduction is the fields to continued healing and prevention of recurrence of wounds. I discussed the localized signs of infection with the patient's and his today and instructed them if they notice any increased redness around the wound, purulent drainage, malodor, red streaking going up the leg, or if you experiences any nausea, vomiting, fever, chills to go to the emergency [facility] for treatment as these are signs of a progressing infection. and patient voiced understanding of this. I reviewed and discussed his case today. Debridement was performed today as noted in the clinical panel to all of the ulcer sites. The following work up and care recommendations were made: Dressing: Jaja, dry sterile dressing to the subfirst metatarsal wound of the right foot Wash: Soap and water Tissue growth optimization: Jaja Offload: Diabetic shoe with inserts Vascular: Palpable pedal pulses Edema: No edema Infection: No localized signs of infection Pain: Patient may take [id number] Tylenol extra strength for any pain or discomfort Host factors: Diabetes mellitus type 2 with peripheral polyneuropathy, proper glycemic control offloading with diabetic patient shoes discussed I answered all the patient's questions. To return to the wound healing center in 1 week or call sooner if the patient has any questions or concerns. Note: iNeed speech recognition twisting frame fixer software was used to create portions of this document. Sound-alike and misspelled words, as well as other twisting frame fixer errors may be contained in the documentation.
== END 2021-11-25 23:59 | disposition home or self-care (01) ==
LOC: WC 08:30
PROVIDERS: PCP Nurse Practitioner Family; Visit Provider Student in an Organized Health Care Education/Training Program
DX: E11.621 Type 2 diabetes mellitus with foot ulcer (principal); G20 Parkinson's disease; L97.512 Non-pressure chronic ulcer of other part of right foot with fat layer exposed; I10 Essential (primary) hypertension; E78.5 Hyperlipidemia, unspecified; R53.1 Weakness; L84 Corns and callosities
CPT/HCPCS: 11042

== ENCOUNTER 2021-12-16 08:00 | Outpatient (RCR) | payer MEDICARE, OTHER, SELFPAY ==
[2021-11-26 00:18] VITALS: BP 114/62; PULSE 71; RESP 18; TEMP 35.8; BMI 21.2
[2021-12-02 08:22] VITALS: BP 120/66; PULSE 74; TEMP 36.3; BMI 21.2
--- NOTE | 2021-12-02 08:57 | PN.PCM_ITS ---
History of Present Illness Date of Service: 12/02/21 Chief Complaint: Foot wound History of Wound: 75-year-old male who was referred for evaluation relative to wounds on his feet. He has apparently been under the care of Dr. Cheung, podiatric specialist, recently, though no such medical records are available. According to the patient, and his , the patient was evaluated in Dr. Cheung's office, and the calluses on the plantar aspect of both feet were scraped. Bleeding was encountered. The patient indicates that he was then referred for further evaluation and management at the [facility]. The patient's pre-existing medical problems include diabe dalila mellitus, hyperlipidemia, Parkinson's disease, hypertension, debility, and generalized weakness. Subjective Subjective This 76-year-old male who presents for follow-up to the wound care center with left foot subfirst metatarsal ulceration. He also has callus tissue to his subfourth metatarsal of the left foot and subthird metatarsal to the right foot with history of ulceration at the sites. He is accompanied by a friend who is helping with his care. He remains compliant in wearing his diabetic shoes with inserts and applying 42% urea cream to the callus sites. He continues to dress his ulceration site with Jaja daily. He currently denies any nausea, vomiting, fever, chills, shortness of breath, or other constitutional symptoms. He has no other complaints today. Objective Data Objective Data Vital Signs: Vital Signs Temp Pulse Resp BP 97.4 F L 74 18 120/66 12/02/21 08:22 12/02/21 08:22 11/26/21 00:18 12/02/21 08:22 Weight: 67.132 kg Body Mass Index (BMI) 21.2 Physical Exam Const alert, oriented x3 and no apparent distress General Appearance: cooperative and comfortable HEENT normocephalic Eyes General Eye: normal appearance of both eyes Neck General: normal visual inspection Lymph Lymphatic: no lymphadenopathy noted and no lymphedema noted Chest inspection of chest normal Resp normal respiratory effort Cardio regular rate and regular rhythm Extremity normal capillary refill, no calf tenderness and no pedal edema Peripheral Pulses: Yes posterior tibial pulses present and dorsalis pedis pulses present Skin Wound Narrative: Subfirst metatarsal ulceration measures 0.3cm x 0.3cm x 0.1 cm. Ulcerative base demonstrates healthy granular tissue with surrounding hyperkeratosis. Ulcerative site demonstrates no localized signs of infection. Neuro oriented x3 and moves all extremities Motor Exam: strength 5/5 throughout and clonus absent Debridement Note Debridement Note Wound debrided: Subfirst metatarsal head Laterality: Right Wound Grade/Stage: Owusu stage I Type of Debridement: Excisional debridement Anesthesia Used: 4% Lidocaine Solution Depth: Down to and including healthy tissue and in the subcutaneous layer Percentage of wound debrided: 100 Instrument Used: - (#313 blade) Tissue Removed: Fibrous, devitalized subcutaneous, biofilm, slough Severity: Fat Layer Exposed Amount of bleeding with debridement: Mild Bleeding Controlled with: Compression and gauze Patient tolerated procedure: Patient tolerated procedure well Post-Debridement Measurements and Additional Note: Post-Debridement Measurements/Treatment - Nurse 1 - General Ulcer Assessment Start: 12/02/21 08:22 Freq: Status: Active Protocol: TAMIR Activity Type Activity Date Activity User E-Sign Co-Sign Detail Recorded Client Recorded Date Recorded By Document 12/02/21 08:22 AMILCAR [id number] 12/02/21 08:23 AMILCAR 12/02/21 08:22 WC - Today's Visit Information Type of service Follow-up Visit (Physician/FUR GLOSSER ) Arrival Mode Ambulatory Accompanied by son Patient Identification Verified (Name & Yes ) Height and Weight Body Mass Index (BMI) 21.2 BMI Classification Normal Vital Signs Temperature (97.8 F-99.1 F) 97.4 F L Temperature Source Temporal Pulse Rate (60-100) 74 Pulse Location Monitor Blood Pressure (90/60-120/80) 120/66 Blood Pressure Mean (mm Hg) 84 Source Monitor Position Semi-Fowlers Blood Pressure Location Right Arm History Since Last Visit- (Skip if this is Patient's initial visit) Have you changed medications since your No last visit? Any new allergies or adverse reactions No Had a fall/change in ADL's that may No increase risk of falls Signs or symptoms of abuse and/or No neglect since last visit Have you been in the hospital since your No last visit? Has dressing in place as prescribed Yes Has compression in place as prescribed Yes Has offloadiing in place as prescribed N/A Experienced any changes in pain level or No management Left Footwear Regular Shoe Right Footwear Regular Shoe Pain Scale: 0-10 Numeric Is Patient Pain Free? Yes - Nurse 1 - General Ulcer Measurement Start: 12/02/21 08:22 Freq: Status: Active Protocol: Activity Type Activity Date Activity User E-Sign Co-Sign Detail Recorded Client Recorded Date Recorded By Document 12/02/21 08:22 AMILCAR [id number] 12/02/21 08:23 AMILCAR 12/02/21 08:22 Wound Center Nurse 1 #2- R 1ST MET HEAD -Current Size (cm) - Length 0.1 -Current Size (cm) - Width 0.1 -Current Size (cm) - Depth 0.1 -Total Square Cm 0.01 -Exudate Amt None Present -Wound Margin Distinct, Outline Attached -Granulation Amt Small (1-33%) -Granulation Quality Red -Necrosis Amt None Present (0 %) -Texture (Kathya-wound Skin Appearance) Assessed,Callus ,Scarring -Moisture (Kathya-wound Skin Appearance) Assessed,Dry/ Scaly -Color (Kathya-wound Skin Appearance) No Abnormality, Assessed -Temperature (Kathya-wound Skin No Abnormality Appearance) (Pt Warm) -Tenderness on Palpation (Kathya-wound No Skin Appearance) -Ulcer Cleansing Rinsed/ Irrigated with Saline -Foul Odor after Cleansing No -Anesthetic Used 5% Lidocaine Gel WC - Nurse 2 - General Ulcer CM Notes Start: 12/02/21 08:22 Freq: Status: Active Protocol: Activity Type Activity Date Activity User E-Sign Co-Sign Detail Recorded Client Recorded Date Recorded By Document 12/02/21 08:51 PL Desktop 12/02/21 08:52 PL 12/02/21 08:51 Wound Center Nurse 2 -Time 08:32 -Correct Patient Yes -Correct Side, Site, Position Yes -Correct Procedure Yes -Procedure Performed Yes -Type of Procedure Debridement -Clinical Debridement Subcutaneous -Tissue Removed Subcutaneous -Post Debridement (cm) - Length 0.3 -Post Debridement (cm) - Width 0.3 -Post Debridement (cm) - Depth 0.1 -Total Square (Post) (cm) 0.09 -Area of Debridement (cm) - Length 0.3 -Area of Debridement (cm) - Width 0.3 -Total Square (Area) (cm) 0.09 -Tunneling No -Undermining/Tunneling No -Circular Undermining No -Wound/Ulcer Outcome Not Healed -Ulcer Cleansing Rinsed/ Irrigated with Saline -Foul Odor after Cleansing No -Bioengineered Tissue No -Bleeding Controlled with Pressure -Treatment Response Procedure Tolerated Well -Debridement - Subq, 1st 20sq cm Yes Pain Scale: 0-10 Numeric Is Patient Pain Free? Yes - Nurse 3 - General Ulcer D/C NN Start: 12/02/21 08:22 Freq: Status: Active Protocol: Activity Type Activity Date Activity User E-Sign Co-Sign Detail Recorded Client Recorded Date Recorded By Document 12/02/21 08:45 ME [id number] 12/02/21 08:46 MARÍA 12/02/21 08:45 Wound Care Nurse 3 #2- R 1ST MET HEAD -Ulcer Cleansing Rinsed/ Irrigated with Saline -Foul Odor after Cleansing No -Negative Pressure Wound Therapy N/A -Primary Dressing Applied Promogran Jaja Matter -Primary Dressing Covered/Secured with Dry Gauze, Secured with Tape -Promogran Jaja Matter 1 Pain Scale: 0-10 Numeric Is Patient Pain Free? Yes WC - Visit Discharge Discharge Condition Stable Ambulatory Status Ambulatory Transportation Private Auto Accompanied by brother in law Medication Reconcilliation completed & Yes provided to patient/care provider Clinical Summary of Care Provided Yes Assessment/Plan Assessment/Plan (1) Non-pressure chronic ulcer of other part of right foot with fat layer exposed: CODE(S): L97.512 - Non-pressure chronic ulcer of other part of right foot with fat layer exposed (2) Callus of foot: CODE(S): L84 - Corns and callosities (3) Diabetes mellitus, type II: CODE(S): E11.9 - Type 2 diabetes mellitus without complications (4) Parkinsons disease: CODE(S): G20 - Parkinson's disease (5) Acute renal insufficiency: CODE(S): N28.9 - Disorder of kidney and ureter, unspecified (6) Generalized weakness: CODE(S): R53.1 - Weakness (7) Hypertension: CODE(S): I10 - Essential (primary) hypertension PLAN: This is a 75-year-old male who presents to the wound care center for follow-up of bilateral foot callus with wounds subfirst metatarsal head right foot and callus tissue subthird metatarsal head left foot and subfifth metatarsal head right foot complicated by diabetes mellitus type 2 with peripheral polyneuropathy, Parkinson's disease, acute renal insufficiency, hypertension, generalized weakness, and hyperlipidemia. His states they are continuing to change the dressings to his feet daily and trying to offload in his tennis shoes with diabetic inserts. Vascular status intact to bilateral lower extremities with palpable pedal pulses, DP and PT. subfifth metatarsal head right demonstrates very little callus tissue buildup. Site remains healed with no localized signs of infection. subthird metatarsal head left foot demonstrates very little callus tissue buildup secondary to continued use of urea cream and his offloading and diabetic shoe inserts. Site continues to remain healed with intact healthy skin and no localized signs of infection. Recommend continued application of urea 42% to right foot subfifth and left foot subthird callus tissue. Debridement of subfirst metatarsal head wound of the right foot performed with a #313 blade removing hyperkeratotic tissue, macerated tissue, biofilm, and slough. Debridement performed to the subcutaneous tissue level. Ulceration site is continuing to reduce in size and demonstrates no localized erythema, no purulent drainage, no malodor, no red streaking, or other localized signs of infection. Ulceration measures 0.3cm x 0.3cm x 0.1cm and is nearing closure. Ulceration site dressed with Jaja with dry sterile dressing. Dressings are to be changed daily. I discussed again with the director of career services and how the pressure sites on his feet form calluses which can contribute to wounds with continued shear forces. I discussed how calluses can also hide wounds. I recommend he continue wearing protective diabetic inserts to aid in offloading the sites and protect his foot. I discussed with the patient to continue to check his feet daily for any signs of wounds or pressure sites. I discussed with the patient that he is to remain in the diabetic shoes with inserts for proper offloading of the pressure sites and to not wear house sandals or house slippers or go barefoot. I discussed with them that his wounds are caused secondarily from pressure due to his atrophic fat pad at the forefoot and plantigrade metatarsals creating direct pressure at the forefoot and the pressure reduction is the fields to continued healing and prevention of recurrence of wounds. I discussed the localized signs of infection with the patient's and his today and instructed them if they notice any increased redness around the wound, purulent drainage, malodor, red streaking going up the leg, or if you experiences any nausea, vomiting, fever, chills to go to the emergency department for treatment as these are signs of a progressing infection. and patient voiced understanding of this. I reviewed and discussed his case today. Debridement was performed today as noted in the clinical panel to all of the ulcer sites. The following work up and care recommendations were made: Dressing: Jaja, dry sterile dressing to the subfirst metatarsal wound of the right foot Wash: Soap and water Tissue growth optimization: Jaja Offload: Diabetic shoe with inserts Vascular: Palpable pedal pulses Edema: No edema Infection: No localized signs of infection Pain: Patient may take [id number] Tylenol extra strength for any pain or discomfort Host factors: Diabetes mellitus type 2 with peripheral polyneuropathy, proper glycemic control offloading with diabetic patient shoes discussed I answered all the patient's questions. To return to the wound healing center in 1 week or call sooner if the patient has any questions or concerns. Note: [employer] speech recognition telephone plant power operator software was used to create portions of this document. Sound-alike and misspelled words, as well as other telephone plant power operator errors may be contained in the documentation.
[2021-12-16 08:00] VITALS: BP 111/54; PULSE 63; TEMP 36.3; BMI 21.2
--- NOTE | 2021-12-16 08:30 | PN.PCM_ITS ---
History of Present Illness Date of Service: 12/16/21 Chief Complaint: Foot wound History of Wound: 75-year-old male who was referred for evaluation relative to wounds on his feet. He has apparently been under the care of Dr. Cheung, podiatric specialist, recently, though no such medical records are available. According to the patient, and his , the patient was evaluated in Dr. Cheung's office, and the calluses on the plantar aspect of both feet were scraped. Bleeding was encountered. The patient indicates that he was then referred for further evaluation and management at the [facility]. The patient's pre-existing medical problems include diabe dalila mellitus, hyperlipidemia, Parkinson's disease, hypertension, debility, and generalized weakness. Subjective Subjective This 76-year-old male presents for follow-up to the wound care center with right foot subfirst metatarsal ulceration. He also has callus tissue to his subfourth metatarsal of the right foot and subthird metatarsal to the left foot with history of ulceration at the sites. He is accompanied by a friend who is helping with his care. He remains compliant in wearing his diabetic shoes with inserts and applying 42% urea cream to the callus sites. He continues to dress his ulceration site with Jaja daily. He currently denies any constitutional symptoms. He has no other complaints today. Objective Data Objective Data Vital Signs: Vital Signs Temp Pulse Resp BP 97.3 F L 63 18 111/54 L 12/16/21 08:00 12/16/21 08:00 11/26/21 00:18 12/16/21 08:00 Weight: 67.132 kg Body Mass Index (BMI) 21.2 Physical Exam Const alert, oriented x3 and no apparent distress General Appearance: cooperative and comfortable HEENT normocephalic Eyes General Eye: normal appearance of both eyes Neck General: normal visual inspection Lymph Lymphatic: no lymphadenopathy noted and no lymphedema noted Chest inspection of chest normal Resp normal respiratory effort Cardio regular rate and regular rhythm Extremity normal capillary refill, no calf tenderness and no pedal edema Skin Wound Narrative: Subfirst metatarsal ulceration measures 0.3cm x 0.3cm x 0.1 cm. Ulcerative base demonstrates healthy granular tissue with surrounding hyperkeratosis. Ulcerative site demonstrates no localized signs of infection. Neuro oriented x3 and moves all extremities Motor Exam: strength 5/5 throughout and clonus absent Debridement Note Debridement Note Wound debrided: Subfirst metatarsal Laterality: Right Wound Grade/Stage: Owusu stage I Type of Debridement: Excisional debridement Anesthesia Used: 4% Lidocaine Solution Depth: Down to and including healthy tissue and in the subcutaneous layer Percentage of wound debrided: 100 Instrument Used: - (#313 blade) Tissue Removed: Fibrous, devitalized subcutaneous, biofilm, slough Severity: Fat Layer Exposed Amount of bleeding with debridement: Mild Bleeding Controlled with: Compression and gauze Patient tolerated procedure: Patient tolerated procedure well Post-Debridement Measurements and Additional Note: Post-Debridement Measurements/Treatment - Nurse 1 - General Ulcer Assessment Start: 12/02/21 08:22 Freq: Status: Active Protocol: TAMIR Activity Type Activity Date Activity User E-Sign Co-Sign Detail Recorded Client Recorded Date Recorded By Document 12/02/21 08:22 KR [id number] 12/02/21 08:23 KR Document 12/16/21 08:00 AK [id number] 12/16/21 08:02 AK 12/02/21 12/16/21 08:22 08:00 - Today's Visit Information Type of service Follow-up Visit Follow-up Visit (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/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 (Physician/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 ) ) Arrival Mode Ambulatory Ambulatory Accompanied by son Patient Identification Verified (Name & Yes Yes ) Patient Requires Transmission-Based No Precautions Safety Precautions NA Height and Weight Body Mass Index (BMI) 21.2 21.2 BMI Classification Normal Normal Vital Signs Temperature (97.8 F-99.1 F) 97.4 F L 97.3 F L Temperature Source Temporal Temporal Pulse Rate (60-100) 74 63 Pulse Location Monitor Monitor Blood Pressure (90/60-120/80) 120/66 111/54 L Blood Pressure Mean (mm Hg) 84 73 Source Monitor Monitor Position Semi-Fowlers Blood Pressure Location Right Arm History Since Last Visit- (Skip if this is Patient's initial visit) Have you changed medications since your No No last visit? Any new allergies or adverse reactions No No Had a fall/change in ADL's that may No No increase risk of falls Signs or symptoms of abuse and/or No No neglect since last visit Have you been in the hospital since your No No last visit? Has dressing in place as prescribed Yes Yes Has compression in place as prescribed Yes No Has offloadiing in place as prescribed N/A N/A Experienced any changes in pain level or No No management Left Footwear Regular Shoe Regular Shoe Right Footwear Regular Shoe Regular Shoe Pain Scale: 0-10 Numeric Is Patient Pain Free? Yes Yes - Nurse 1 - General Ulcer Measurement Start: 12/02/21 08:22 Freq: Status: Active Protocol: Activity Type Activity Date Activity User E-Sign Co-Sign Detail Recorded Client Recorded Date Recorded By Document 12/02/21 08:22 KR [id number] 12/02/21 08:23 KR Document 12/16/21 08:00 AK [id number] 12/16/21 08:02 AK 12/02/21 12/16/21 08:22 08:00 Wound Center Nurse 1 #2- R 1ST MET HEAD -Combined with other wound No -Current Size (cm) - Length 0.1 0.3 -Current Size (cm) - Width 0.1 0.3 -Current Size (cm) - Depth 0.1 0.2 -Total Square Cm 0.01 0.09 -Photo Taken No -Epithelialization None Present -Tunneling No -Undermining/Tunneling No -Circular Undermining No -Change in Wound Grade/Stage No -Exudate Amt None Present Small -Exudate Type Serosanguineous -Wound Margin Distinct, Distinct, Outline Outline Attached Attached -Granulation Amt Small (1-33%) Small (1-33%) -Granulation Quality Red N/A -Slough/Fibrin Yes -Necrosis Amt None Present (0 Small (1-33%) %) -Necrotic Tissue Type Adherent Slough -Structure Exposed N/A -Texture (Kathya-wound Skin Appearance) Assessed,Callus Assessed,Callus ,Scarring -Moisture (Kathya-wound Skin Appearance) Assessed,Dry/ Assessed,Dry/ Scaly Scaly -Color (Kathya-wound Skin Appearance) No Abnormality, Assessed Assessed -Temperature (Kathya-wound Skin No Abnormality No Abnormality Appearance) (Pt Warm) (Pt Warm) -Tenderness on Palpation (Kathya-wound No No Skin Appearance) -Ulcer Cleansing Rinsed/ Soap and Water Irrigated with Saline -Foul Odor after Cleansing No No -Anesthetic Used 5% Lidocaine 4% Lidocaine Gel Solution - Nurse 2 - General Ulcer CM Notes Start: 12/02/21 08:22 Freq: Status: Active Protocol: Activity Type Activity Date Activity User E-Sign Co-Sign Detail Recorded Client Recorded Date Recorded By Document 12/02/21 08:51 PL Desktop 12/02/21 08:52 PL 12/02/21 08:51 Wound Center Nurse 2 -Time 08:32 -Correct Patient Yes -Correct Side, Site, Position Yes -Correct Procedure Yes -Procedure Performed Yes -Type of Procedure Debridement -Clinical Debridement Subcutaneous -Tissue Removed Subcutaneous -Post Debridement (cm) - Length 0.3 -Post Debridement (cm) - Width 0.3 -Post Debridement (cm) - Depth 0.1 -Total Square (Post) (cm) 0.09 -Area of Debridement (cm) - Length 0.3 -Area of Debridement (cm) - Width 0.3 -Total Square (Area) (cm) 0.09 -Tunneling No -Undermining/Tunneling No -Circular Undermining No -Wound/Ulcer Outcome Not Healed -Ulcer Cleansing Rinsed/ Irrigated with Saline -Foul Odor after Cleansing No -Bioengineered Tissue No -Bleeding Controlled with Pressure -Treatment Response Procedure Tolerated Well -Debridement - Subq, 1st 20sq cm Yes Pain Scale: 0-10 Numeric Is Patient Pain Free? Yes - Nurse 3 - General Ulcer D/C NN Start: 12/02/21 08:22 Freq: Status: Active Protocol: Activity Type Activity Date Activity User E-Sign Co-Sign Detail Recorded Client Recorded Date Recorded By Document 12/02/21 08:45 MARÍA [id number] 12/02/21 08:46 MARÍA 12/02/21 08:45 Wound Care Nurse 3 #2- R 1ST MET HEAD -Ulcer Cleansing Rinsed/ Irrigated with Saline -Foul Odor after Cleansing No -Negative Pressure Wound Therapy N/A -Primary Dressing Applied Promogran Jaja Matter -Primary Dressing Covered/Secured with Dry Gauze, Secured with Tape -Promogran Jaja Matter 1 Pain Scale: 0-10 Numeric Is Patient Pain Free? Yes WC - Visit Discharge Discharge Condition Stable Ambulatory Status Ambulatory Transportation Private Auto Accompanied by brother in law Medication Reconcilliation completed & Yes provided to patient/care provider Clinical Summary of Care Provided Yes Assessment/Plan Assessment/Plan (1) Non-pressure chronic ulcer of other part of right foot with fat layer exposed: CODE(S): L97.512 - Non-pressure chronic ulcer of other part of right foot with fat layer exposed (2) Callus of foot: CODE(S): L84 - Corns and callosities (3) Diabetes mellitus, type II: CODE(S): E11.9 - Type 2 diabetes mellitus without complications (4) Parkinsons disease: CODE(S): G20 - Parkinson's disease (5) Acute renal insufficiency: CODE(S): N28.9 - Disorder of kidney and ureter, unspecified (6) Generalized weakness: CODE(S): R53.1 - Weakness (7) Hypertension: CODE(S): I10 - Essential (primary) hypertension PLAN: This is a 75-year-old male who presents to the wound care center for follow-up of bilateral foot callus with wounds subfirst metatarsal head right foot and callus tissue subthird metatarsal head left foot and subfifth metatarsal head right foot complicated by diabetes mellitus type 2 with peripheral polyneuropathy, Parkinson's disease, acute renal insufficiency, hypertension, generalized weakness, and hyperlipidemia. Vascular status intact to bilateral lower extremities with palpable pedal pulses, DP and PT. subthird metatarsal head left foot demonstrates very little callus tissue buildup and remains healed. subfifth metatarsal head right demonstrates very little callus tissue buildup. Site remains healed with no localized signs of infection. Recommend continued application of urea 42% to right foot subfifth and left foot subthird callus tissue. Debridement of subfirst metatarsal head wound of the right foot performed with a #313 blade removing hyperkeratotic tissue, macerated tissue, biofilm, and slough. Debridement performed to the subcutaneous tissue level. Ulceration site is continuing to reduce in size and demonstrates no localized signs of infection. Ulceration measures 0.3cm x 0.3cm x 0.2cm and is nearing closure. I believe he has been returning to his house slippers since his last visit as ulcerative site has yet to close. I discussed with him to remain in his shoes at all times until bed. Ulceration site dressed with Jaja with dry sterile dressing. Dressings are to be changed daily. I discussed again with the child care worker and how the pressure sites on his feet form calluses which can contribute to wounds with continued shear forces. I discussed how calluses can also hide wounds. I recommend he continue wearing protective diabetic inserts to aid in offloading the sites and protect his foot. I discussed with the patient to continue to check his feet daily for any signs of wounds or pressure sites. I discussed with the patient that he is to remain in the diabetic shoes with inserts for proper offloading of the pressure sites and to not wear house sandals or house slippers or go barefoot. I discussed with them that his wounds are caused secondarily from pressure due to his atrophic fat pad at the forefoot and plantigrade metatarsals creating direct pressure at the forefoot and pressure reduction is the fields to continued healing and prevention or recurrence of wounds. I discussed the localized signs of infection with the patient's and his today and instructed them if they notice any increased redness around the wound, purulent drainage, malodor, red streaking going up the leg, or if you experiences any nausea, vomiting, fever, chills to go to the emergency department for treatment as these are signs of a progressing infection. and patient voiced understanding of this. I reviewed and discussed his case today. Debridement was performed today as noted in the clinical panel to all of the ulcer sites. The following work up and care recommendations were made: Dressing: Jaja, dry sterile dressing to the subfirst metatarsal wound of the right foot Wash: Soap and water Tissue growth optimization: Jaja Offload: Diabetic shoe with inserts Vascular: Palpable pedal pulses Edema: No edema Infection: No localized signs of infection Pain: Patient may take [id number] Tylenol extra strength for any pain or discomfort Host factors: Diabetes mellitus type 2 with peripheral polyneuropathy, proper glycemic control offloading with diabetic patient shoes discussed I answered all the patient's questions. To return to the wound healing center in 2 weeks or call sooner if the patient has any questions or concerns. Note: The [employer] speech recognition joint machine operator software was used to create portions of this document. Sound-alike and misspelled words, as well as other joint machine operator errors may be contained in the documentation.
== END 2021-12-25 23:59 | disposition home or self-care (01) ==
LOC: WC 08:00
PROVIDERS: PCP Nurse Practitioner Family; Visit Provider Student in an Organized Health Care Education/Training Program
DX: E11.621 Type 2 diabetes mellitus with foot ulcer (principal); G20 Parkinson's disease; L97.512 Non-pressure chronic ulcer of other part of right foot with fat layer exposed; E11.42 Type 2 diabetes mellitus with diabetic polyneuropathy; I10 Essential (primary) hypertension; E78.5 Hyperlipidemia, unspecified; R53.81 Other malaise; N28.9 Disorder of kidney and ureter, unspecified; R53.1 Weakness
CPT/HCPCS: 11042

== ENCOUNTER 2022-01-20 09:45 | Outpatient (RCR) | payer MEDICARE, OTHER, SELFPAY ==
[2021-12-26 00:19] VITALS: BP 111/54; PULSE 63; RESP 18; TEMP 36.3; BMI 21.2
[2021-12-30 09:23] VITALS: BP 123/61; PULSE 67; RESP 16; TEMP 36.6; BMI 21.2
--- NOTE | 2021-12-30 10:58 | PCM.WC.PN ---
History of Present Illness Date of Service: 12/30/21 Chief Complaint: Foot wound History of Wound: 75-year-old male who was referred for evaluation relative to wounds on his feet. He has apparently been under the care of Dr. Cheung, podiatric specialist, recently, though no such medical records are available. According to the patient, and his , the patient was evaluated in Dr. Cheung's office, and the calluses on the plantar aspect of both feet were scraped. Bleeding was encountered. The patient indicates that he was then referred for further evaluation and management at the [facility]. The patient's pre-existing medical problems include diabetes mellitus, hyperlipidemia, Parkinson's disease, hypertension, debility, and generalized weakness. Subjective Subjective This 76-year-old male presents for follow-up to the wound care center with a right foot subfirst metatarsal ulceration. He also has a callus to his subfourth metatarsal the right foot and subthird metatarsal of the left foot with history of ulceration at the sites. He is accompanied by his today. He remains compliant in wearing his diabetic shoes with inserts and applying 42% urea cream to the callus sites. He continues to dress the ulceration site with Jaja daily. He denies any constitutional symptoms today. He has no other complaints today. Objective Data Objective Data Vital Signs: Vital Signs Temp Pulse Resp BP 97.8 F 67 16 123/61 H 12/30/21 09:23 12/30/21 09:23 12/30/21 09:23 12/30/21 09:23 Oxygen Delivery Method Room Air Weight: 67.132 kg Body Mass Index (BMI) 21.2 Physical Exam Const alert, oriented x3 and no apparent distress General Appearance: cooperative and comfortable HEENT normocephalic Eyes General Eye: normal appearance of both eyes Neck General: normal visual inspection Lymph Lymphatic: no lymphadenopathy noted and no lymphedema noted Chest inspection of chest normal Resp normal respiratory effort Cardio regular rate and regular rhythm Extremity normal capillary refill, no calf tenderness and no pedal edema Peripheral Pulses: Yes posterior tibial pulses present bilateral and dorsalis pedis pulses present bilateral Skin no rashes or lesions noted and no jaundice Skin Narrative: Skin is thin/atrophic. There is fat pad atrophy of the forefoot with palpable metatarsal heads 1 through 5 bilateral. Wound Narrative: Subfirst metatarsal ulceration measures 0.5 cm x 0.5 cm x 0.1 cm. Ulcerative base demonstrates healthy granular tissue with surrounding hyperkeratosis. No signs of infection. Neuro oriented x3 and moves all extremities Motor Exam: strength 5/5 throughout and clonus absent Debridement Note Debridement Note Wound debrided: Subfirst metatarsal Laterality: Right Wound Grade/Stage: Owusu stage I Type of Debridement: Excisional debridement Anesthesia Used: 4% Lidocaine Solution Depth: Down to and including healthy tissue and in the subcutaneous layer Percentage of wound debrided: 100 Instrument Used: - (#313 blade) Tissue Removed: Hyperkeratotic, fibrous, devitalized subcutaneous, biofilm, slough Severity: Fat Layer Exposed Amount of bleeding with debridement: Mild Bleeding Controlled with: Compression and gauze Patient tolerated procedure: Patient tolerated procedure well Post-Debridement Measurements and Additional Note: Post-Debridement Measurements/Treatment - Nurse 1 - General Ulcer Assessment Start: 12/30/21 09:23 Freq: Status: Active Protocol: .JD Activity Type Activity Date Activity User E-Sign Co-Sign Detail Recorded Client Recorded Date Recorded By Document 12/30/21 09:23 [facility] [id number] 12/30/21 09:29 [facility] 12/30/21 09:23 - Today's Visit Information Type of service 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 ) Arrival Mode Ambulatory Transfer Assistance None Accompanied by Patient Identification Verified (Name & Yes ) Patient Requires Transmission-Based No Precautions Height and Weight Body Mass Index (BMI) 21.2 BMI Classification Normal Vital Signs Temperature (97.8 F-99.1 F) 97.8 F Temperature Source Temporal Pulse Rate (60-100) 67 Pulse Location Monitor Respiratory Rate (12-18) 16 Respiratory rate source Observation Oxygen Delivery Method Room Air Blood Pressure (90/60-120/80) 123/61 H Blood Pressure Mean (mm Hg) 81 Source Monitor Position Sitting Blood Pressure Location Left Arm History Since Last Visit- (Skip if this is Patient's initial visit) Have you changed medications since your No last visit? Any new allergies or adverse reactions No Had a fall/change in ADL's that may No increase risk of falls Signs or symptoms of abuse and/or No neglect since last visit Have you been in the hospital since your No last visit? Has dressing in place as prescribed No Has compression in place as prescribed N/A Has offloadiing in place as prescribed N/A Experienced any changes in pain level or No management Left Footwear Regular Shoe Right Footwear Regular Shoe Pain Scale: 0-10 Numeric Is Patient Pain Free? Yes WC - Nurse 1 - General Ulcer Measurement Start: 12/30/21 09:23 Freq: Status: Active Protocol: Activity Type Activity Date Activity User E-Sign Co-Sign Detail Recorded Client Recorded Date Recorded By Document 12/30/21 09:23 [facility] [id number] 12/30/21 09:29 [facility] 12/30/21 09:23 Wound Center Nurse 1 #2- R 1ST MET HEAD -Combined with other wound No -Current Size (cm) - Length 0.3 -Current Size (cm) - Width 0.4 -Current Size (cm) - Depth 0.3 -Total Square Cm 0.12 -Photo Taken No -Epithelialization None Present -Tunneling No -Undermining/Tunneling Yes -Undermining/Tunneling Starts (O'clock 8 ) -Undermining/Tunneling Ends (O'clock) 2 -Maximum Distance (cm) 0.5 -Circular Undermining No -Exudate Amt None Present -Wound Margin Distinct, Outline Attached -Granulation Amt None Present (0 %) -Slough/Fibrin Yes -Necrosis Amt Large (67-100%) -Necrotic Tissue Type Adherent Slough -Texture (Kathya-wound Skin Appearance) Assessed,Callus ,Scarring -Moisture (Kathya-wound Skin Appearance) Assessed,Dry/ Scaly -Color (Kathya-wound Skin Appearance) Assessed -Temperature (Kathya-wound Skin No Abnormality Appearance) (Pt Warm) -Tenderness on Palpation (Kathya-wound No Skin Appearance) -Ulcer Cleansing Rinsed/ Irrigated with Saline -Foul Odor after Cleansing No -Anesthetic Used 5% Lidocaine Gel Assessment/Plan Assessment/Plan (1) Non-pressure chronic ulcer of other part of right foot with fat layer exposed: CODE(S): L97.512 - Non-pressure chronic ulcer of other part of right foot with fat layer exposed (2) Non-pressure chronic ulcer of other part of left foot with fat layer exposed: CODE(S): L97.522 - Non-pressure chronic ulcer of other part of left foot with fat layer exposed (3) Callus of foot: CODE(S): L84 - Corns and callosities (4) Diabetes mellitus, type II: CODE(S): E11.9 - Type 2 diabetes mellitus without complications (5) Parkinsons disease: CODE(S): G20 - Parkinson's disease (6) Acute renal insufficiency: CODE(S): N28.9 - Disorder of kidney and ureter, unspecified (7) Generalized weakness: CODE(S): R53.1 - Weakness PLAN: This is a 75-year-old male who presents to the wound care center for follow-up of bilateral foot callus with wounds subfirst metatarsal head right foot and callus tissue subthird metatarsal head left foot and subfifth metatarsal head right foot complicated by diabetes mellitus type 2 with peripheral polyneuropathy, Parkinson's disease, acute renal insufficiency, hypertension, generalized weakness, and hyperlipidemia. Patient seen and evaluated. Vascular status intact to bilateral lower extremities with palpable pedal pulses, DP and PT. subthird metatarsal head left foot demonstrates callus tissue buildup which was debrided sharply with a #313 blade without incident. Site remains healed. subfifth metatarsal head right demonstrates very little callus tissue buildup. Site remains healed with no localized signs of infection. Recommend continued application of urea 42% to right foot subfifth and left foot subthird callus tissue. Debridement of subfirst metatarsal head wound of the right foot performed with a #313 blade removing hyperkeratotic tissue, macerated tissue, biofilm, and slough. Debridement performed to the subcutaneous tissue level. Ulceration measures 0.5cm x 0.5cm x 0.2cm. No signs of infection. I discussed updating his diabetic inserts today. Ulceration site dressed with Jaja with dry sterile dressing. Dressings are to be changed daily. I discussed again with how the pressure sites on his feet form calluses which can contribute to wounds with continued shear forces. I discussed how calluses can also hide wounds. I recommend he continue wearing protective diabetic inserts to aid in offloading the sites and protect his foot. I discussed with the patient to continue to check his feet daily for any signs of wounds or pressure sites. I discussed with the patient that he is to remain in the diabetic shoes with inserts for proper offloading of the pressure sites and to not wear house sandals or house slippers or go barefoot. I discussed with them that his wounds are caused secondarily from pressure due to his atrophic fat pad at the forefoot and plantigrade metatarsals creating direct pressure at the forefoot and pressure reduction is the fields to continued healing and prevention or recurrence of wounds. I discussed the localized signs of infection with the patient's and his today and instructed them if they notice any increased redness around the wound, purulent drainage, malodor, red streaking going up the leg, or if you experiences any nausea, vomiting, fever, chills to go to the emergency department for treatment as these are signs of a progressing infection. and patient voiced understanding of this. I reviewed and discussed his case today. Debridement was performed today as noted in the clinical panel to all of the ulcer sites. The following work up and care recommendations were made: Dressing: Jaja, dry sterile dressing to the subfirst metatarsal wound of the right foot Wash: Soap and water Tissue growth optimization: Jaja Offload: Diabetic shoe with inserts Vascular: Palpable pedal pulses Edema: No edema Infection: No localized signs of infection Pain: Patient may take [id number]-[id number] Tylenol extra strength for any pain or discomfort Host factors: Diabetes mellitus type 2 with peripheral polyneuropathy, proper glycemic control offloading with diabetic patient shoes discussed I answered all the patient's questions. To return to the wound healing center in 1 weeks or call sooner if the patient has any questions or concerns. Note: [employer] speech recognition theatrical agent software was used to create portions of this document. Sound-alike and misspelled words, as well as other theatrical agent errors may be contained in the documentation.
[2022-01-06 09:47] VITALS: BP 109/55; PULSE 70; RESP 16; TEMP 35.2; BMI 21.2
--- NOTE | 2022-01-06 12:26 | PN.PCM_ITS ---
History of Present Illness Date of Service: 01/06/22 Chief Complaint: Foot wound History of Wound: 75-year-old male who was referred for evaluation relative to wounds on his feet. He has apparently been under the care of Dr. Cheung, podiatric specialist, recently, though no such medical records are available. According to the patient, and his , the patient was evaluated in Dr. Cheung's office, and the calluses on the plantar aspect of both feet were scraped. Bleeding was encountered. The patient indicates that he was then referred for further evaluation and management at the [facility]. The patient's pre-existing medical problems include diabe dalila mellitus, hyperlipidemia, Parkinson's disease, hypertension, debility, and generalized weakness. Subjective Subjective This 76-year-old male presents for follow-up to the wound care center with a right foot subfirst metatarsal ulceration. He also has a callus to his subfourth metatarsal the right foot and subthird metatarsal of the left foot with history of ulceration at the sites. He is accompanied by his today. He remains compliant in wearing his diabetic shoes with protective inserts and applying 42% urea cream to the callus sites. He continues to dress the ulceration site with Jaja daily. He denies any constitutional symptoms today. He has no other complaints today. Objective Data Objective Data Vital Signs: Vital Signs Temp Pulse Resp BP 95.4 F L 70 16 109/55 L 01/06/22 09:47 01/06/22 09:47 01/06/22 09:47 01/06/22 09:47 Oxygen Delivery Method Room Air Weight: 67.132 kg Body Mass Index (BMI) 21.2 Physical Exam Const alert, oriented x3 and no apparent distress General Appearance: cooperative and comfortable HEENT normocephalic Eyes General Eye: normal appearance of both eyes Neck General: normal visual inspection Lymph Lymphatic: no lymphadenopathy noted and no lymphedema noted Chest inspection of chest normal Resp normal respiratory effort Cardio regular rate and regular rhythm Extremity normal capillary refill, no calf tenderness and no pedal edema Skin no rashes or lesions noted and no jaundice Skin Narrative: Skin is thin/atrophic. There is fat pad atrophy of the forefoot with palpable metatarsal heads 1 through 5 bilateral. Wound Narrative: Subfirst metatarsal ulceration measures 0.4 cm x 0.6 cm x 0.3 cm. Ulcerative base demonstrates healthy granular tissue with surrounding hyperkeratosis. No signs of infection. Neuro oriented x3 and moves all extremities Motor Exam: strength 5/5 throughout and clonus absent Debridement Note Debridement Note Wound debrided: Subfirst metatarsal Laterality: Right Wound Grade/Stage: Owusu stage I Type of Debridement: Excisional debridement Anesthesia Used: 5% Lidocaine Gel Depth: Down to and including healthy tissue and in the subcutaneous layer Percentage of wound debrided: 100 Instrument Used: - (#313 blade) Tissue Removed: Fibrous, devitalized subcutaneous, biofilm, slough Severity: Fat Layer Exposed Amount of bleeding with debridement: Mild Bleeding Controlled with: Compression and gauze Patient tolerated procedure: Patient tolerated procedure well Post-Debridement Measurements and Additional Note: Post-Debridement Measurements/Treatment - Nurse 1 - General Ulcer Assessment Start: 12/30/21 09:23 Freq: Status: Active Protocol: DAILY Activity Type Activity Date Activity User E-Sign Co-Sign Detail Recorded Client Recorded Date Recorded By Document 12/30/21 09:23 [facility] [id number] 12/30/21 09:29 [facility] Document 01/06/22 09:47 [facility] [id number] 01/06/22 09:53 [facility] 12/30/21 01/06/22 09:23 09:47 - Today's Visit Information Type of service Follow-up Visit Follow-up Visit (Physician/ENGINEER CHIEF (Physician/ENGINEER CHIEF ) ) Arrival Mode Ambulatory Ambulatory Transfer Assistance None None Accompanied by Patient Identification Verified (Name & Yes Yes ) Patient Requires Transmission-Based No No Precautions Height and Weight Body Mass Index (BMI) 21.2 21.2 BMI Classification Normal Normal Vital Signs Temperature (97.8 F-99.1 F) 97.8 F 95.4 F L Temperature Source Temporal Temporal Pulse Rate (60-100) 67 70 Pulse Location Monitor Monitor Respiratory Rate (12-18) 16 16 Respiratory rate source Observation Observation Oxygen Delivery Method Room Air Room Air Blood Pressure (90/60-120/80) 123/61 H 109/55 L Blood Pressure Mean (mm Hg) 81 73 Source Monitor Monitor Position Sitting Sitting Blood Pressure Location Left Arm Left Arm History Since Last Visit- (Skip if this is Patient's initial visit) Have you changed medications since your No No last visit? Any new allergies or adverse reactions No No Had a fall/change in ADL's that may No No increase risk of falls Signs or symptoms of abuse and/or No No neglect since last visit Have you been in the hospital since your No No last visit? Has dressing in place as prescribed No Yes Has compression in place as prescribed N/A N/A Has offloadiing in place as prescribed N/A N/A Experienced any changes in pain level or No No management Left Footwear Regular Shoe Regular Shoe Right Footwear Regular Shoe Regular Shoe Pain Scale: 0-10 Numeric Is Patient Pain Free? Yes Yes - Nurse 1 - General Ulcer Measurement Start: 12/30/21 09:23 Freq: Status: Active Protocol: Activity Type Activity Date Activity User E-Sign Co-Sign Detail Recorded Client Recorded Date Recorded By Document 12/30/21 09:23 [facility] [id number] 12/30/21 09:29 [facility] Document 01/06/22 09:47 [facility] [id number] 01/06/22 09:53 [facility] 12/30/21 01/06/22 09:23 09:47 Wound Center Nurse 1 #2- R 1ST MET HEAD -Combined with other wound No No -Current Size (cm) - Length 0.3 0.4 -Current Size (cm) - Width 0.4 0.6 -Current Size (cm) - Depth 0.3 0.3 -Total Square Cm 0.12 0.24 -Photo Taken No No -Epithelialization None Present None Present -Tunneling No No -Undermining/Tunneling Yes No -Undermining/Tunneling Starts (O'clock 8 ) -Undermining/Tunneling Ends (O'clock) 2 -Maximum Distance (cm) 0.5 -Circular Undermining No No -Exudate Amt None Present Small -Exudate Type Serosanguineous -Wound Margin Distinct, Distinct, Outline Outline Attached Attached -Granulation Amt None Present (0 Large (67-100%) %) -Granulation Quality Red -Slough/Fibrin Yes Yes -Necrosis Amt Large (67-100%) Small (1-33%) -Necrotic Tissue Type Adherent Slough Adherent Slough -Texture (Kathya-wound Skin Appearance) Assessed,Callus Callus ,Scarring -Moisture (Kathya-wound Skin Appearance) Assessed,Dry/ Assessed,Dry/ Scaly Scaly -Color (Kathya-wound Skin Appearance) Assessed Assessed -Temperature (Kathya-wound Skin No Abnormality No Abnormality Appearance) (Pt Warm) (Pt Warm) -Tenderness on Palpation (Kathya-wound No No Skin Appearance) -Ulcer Cleansing Rinsed/ Rinsed/ Irrigated with Irrigated with Saline Saline -Foul Odor after Cleansing No No -Anesthetic Used 5% Lidocaine 5% Lidocaine Gel Gel - Nurse 2 - General Ulcer CM Notes Start: 12/30/21 09:23 Freq: Status: Active Protocol: Activity Type Activity Date Activity User E-Sign Co-Sign Detail Recorded Client Recorded Date Recorded By Document 12/30/21 13:22 PL [id number] 12/30/21 13:23 PL Document 01/06/22 10:07 SIMRAN [id number] 01/06/22 10:09 SIMRAN 12/30/21 01/06/22 13:22 10:07 Wound Center Nurse 2 #2- R 1ST MET HEAD -Time 09:46 10:08 -Correct Patient Yes Yes -Correct Side, Site, Position Yes Yes -Correct Procedure Yes Yes -Procedure Performed Yes Yes -Type of Procedure Debridement Debridement -Clinical Debridement Subcutaneous Subcutaneous -Tissue Removed Subcutaneous Subcutaneous -Post Debridement (cm) - Length 0.3 0.5 -Post Debridement (cm) - Width 0.4 0.6 -Post Debridement (cm) - Depth 0.3 0.2 -Total Square (Post) (cm) 0.12 0.30 -Area of Debridement (cm) - Length 0.3 0.5 -Area of Debridement (cm) - Width 0.4 0.6 -Total Square (Area) (cm) 0.12 0.30 -Tunneling No No -Undermining/Tunneling No No -Circular Undermining No No -Wound/Ulcer Outcome Not Healed Not Healed -Ulcer Cleansing Rinsed/ Rinsed/ Irrigated with Irrigated with Saline Saline -Foul Odor after Cleansing No No -Bioengineered Tissue No No -Bleeding Controlled with Pressure Pressure -Treatment Response Procedure Procedure Tolerated Well Tolerated Well -Offloading No -Debridement - Subq, 1st 20sq cm Yes Yes Pain Scale: 0-10 Numeric Is Patient Pain Free? Yes Yes - Nurse 3 - General Ulcer D/C NN Start: 12/30/21 09:23 Freq: Status: Active Protocol: Activity Type Activity Date Activity User E-Sign Co-Sign Detail Recorded Client Recorded Date Recorded By Document 12/30/21 12:16 KR [id number] 12/30/21 12:17 KR Document 01/06/22 10:20 [facility] [id number] 01/06/22 10:21 [facility] 12/30/21 01/06/22 12:16 10:20 Wound Care Nurse 3 #2- R 1ST MET HEAD -Ulcer Cleansing Rinsed/ Rinsed/ Irrigated with Irrigated with Saline Saline -Foul Odor after Cleansing No -Primary Dressing Applied Promogran Promogran Jaja Matter Jaja Matter -Primary Dressing Covered/Secured with Dry Gauze, Dry Gauze, Secured with Secured with Tape Tape -Promogran Jaja Matter 1 1 Treatment Response Procedure Tolerated Well Pain Scale: 0-10 Numeric Is Patient Pain Free? Yes Yes WC - Visit Discharge Discharge Condition Stable Stable Ambulatory Status Ambulatory Ambulatory Transportation Private Auto Private Auto Accompanied by Assessment/Plan Assessment/Plan (1) Non-pressure chronic ulcer of other part of right foot with fat layer exposed: CODE(S): L97.512 - Non-pressure chronic ulcer of other part of right foot with fat layer exposed (2) Non-pressure chronic ulcer of other part of left foot with fat layer exposed: CODE(S): L97.522 - Non-pressure chronic ulcer of other part of left foot with fat layer exposed (3) Callus of foot: CODE(S): L84 - Corns and callosities (4) Diabetes mellitus, type II: CODE(S): E11.9 - Type 2 diabetes mellitus without complications (5) Parkinsons disease: CODE(S): G20 - Parkinson's disease (6) Acute renal insufficiency: CODE(S): N28.9 - Disorder of kidney and ureter, unspecified (7) Generalized weakness: CODE(S): R53.1 - Weakness PLAN: This is a 75-year-old male who presents to the wound care center for follow-up of bilateral foot callus with wounds subfirst metatarsal head right foot and callus tissue subthird metatarsal head left foot and subfifth metatarsal head right foot complicated by diabetes mellitus type 2 with peripheral polyneuropathy, Parkinson's disease, acute renal insufficiency, hypertension, generalized weakness, and hyperlipidemia. Patient seen and evaluated. Vascular status intact to bilateral lower extremities with palpable pedal pulses, DP and PT. subthird metatarsal head left foot demonstrates callus tissue buildup which was debrided sharply with a #313 blade without incident. Site remains healed. subfifth metatarsal head right demonstrates very little callus tissue buildup. Site remains healed. Recommend continued application of urea 42% to right foot subfifth and left foot subthird callus tissue. Debridement of subfirst metatarsal head ulcer of the right foot performed with a #313 blade removing hyperkeratotic tissue, macerated tissue, biofilm, and slough. Debridement performed to the subcutaneous tissue level. Ulceration measures 0.4cm x 0.6cm x 0.3cm. No signs of infection. I discussed further offloading to diabetic inserts today. Offloading pad placed bottom of his diabetic insert of the right foot. Ulceration site dressed with Jaja with dry sterile dressing. Dressings are to be changed daily. I reminded his how the pressure sites on his feet form calluses which can contribute to wounds with continued shear forces. I discussed how calluses can also hide wounds. I recommend he continue wearing protective diabetic inserts to aid in offloading the sites and protect his foot. I discussed with the patient to continue to check his feet daily for any signs of wounds or pressure sites. I discussed with the patient that he is to remain in the diabetic shoes with inserts for proper offloading of the pressure sites and to not wear house sandals or house slippers or go barefoot. I discussed with them that his wounds are caused secondarily from pressure due to his atrophic fat pad at the forefoot and plantigrade metatarsals creating direct pressure at the forefoot and pressure reduction is the fields to continued healing and prevention or recurrence of wounds. I discussed the localized signs of infection with the patient's and his today and instructed them if they notice any increased redness around the wound, purulent drainage, malodor, red streaking going up the leg, or if you experiences any nausea, vomiting, fever, chills to go to the emergency department for treatment as these are signs of a progressing infection. and patient voiced understanding of this. I reviewed and discussed his case today. Debridement was performed today as noted in the clinical panel to all of the ulcer sites. The following work up and care recommendations were made: Dressing: Jaja, dry sterile dressing to the subfirst metatarsal wound of the right foot Wash: Soap and water Tissue growth optimization: Jaja Offload: Diabetic shoe with inserts Vascular: Palpable pedal pulses Edema: No edema Infection: No localized signs of infection Pain: Patient may take [id number] Tylenol extra strength for any pain or discomfort Host factors: Diabetes mellitus type 2 with peripheral polyneuropathy, proper glycemic control offloading with diabetic patient shoes discussed I answered all the patient's questions. To return to the wound healing center in 1 weeks or call sooner if the patient has any questions or concerns. Note: [employer] speech recognition land acquisition specialist software was used to create portions of this document. Sound-alike and misspelled words, as well as other land acquisition specialist errors may be contained in the documentation.
[2022-01-13 09:28] VITALS: BP 102/56; PULSE 69; TEMP 36.1; BMI 21.2
--- NOTE | 2022-01-13 13:21 | PCM.WC.PN ---
History of Present Illness Date of Service: 01/13/22 Chief Complaint: Foot wound History of Wound: 75-year-old male who was referred for evaluation relative to wounds on his feet. He has apparently been under the care of Dr. Cheung, podiatric specialist, recently, though no such medical records are available. According to the patient, and his , the patient was evaluated in Dr. Cheung's office, and the calluses on the plantar aspect of both feet were scraped. Bleeding was encountered. The patient indicates that he was then referred for further evaluation and management at the [facility]. The patient's pre-existing medical problems include diabetes mellitus, hyperlipidemia, Parkinson's disease, hypertension, debility, and generalized weakness. Subjective Subjective This 76-year-old male presents for follow-up to the wound care center with a right foot subfirst metatarsal ulceration. He also has a callus to his subfourth metatarsal the right foot and subthird metatarsal of the left foot with history of ulceration at the sites. He is accompanied by his today. He remains compliant in wearing his diabetic shoes with protective inserts and applying 42% urea cream to the callus sites. He states the extra offloading pad applied to his subfirst metatarsal ulcer site is more comfortable for him to walk and he feels like it is helping him. He continues to dress the ulceration site with Jaja daily. He denies any constitutional symptoms today. He has no other complaints today. Objective Data Objective Data Vital Signs: Vital Signs Temp Pulse Resp BP 97 F L 69 16 102/56 L 01/13/22 09:28 01/13/22 09:28 01/06/22 09:47 01/13/22 09:28 Oxygen Delivery Method Room Air Weight: 67.132 kg Body Mass Index (BMI) 21.2 Physical Exam Const alert, oriented x3 and no apparent distress General Appearance: cooperative and comfortable HEENT normocephalic Eyes General Eye: normal appearance of both eyes Neck General: normal visual inspection Lymph Lymphatic: no lymphadenopathy noted and no lymphedema noted Chest inspection of chest normal Resp normal respiratory effort Cardio regular rate and regular rhythm Extremity normal capillary refill, no calf tenderness and no pedal edema Skin no rashes or lesions noted and no jaundice Skin Narrative: Skin is thin/atrophic. There is fat pad atrophy of the forefoot with palpable metatarsal heads 1 through 5 bilateral. Wound Narrative: Subfirst metatarsal ulceration measures 0.3 cm x 0.4 cm x 0.3 cm. Ulcerative base demonstrates healthy granular tissue with surrounding hyperkeratosis. No signs of infection. Neuro oriented x3 and moves all extremities Motor Exam: strength 5/5 throughout and clonus absent Debridement Note Debridement Note Wound debrided: Subfirst metatarsal Laterality: Right Wound Grade/Stage: Owusu stage I Type of Debridement: Excisional debridement Anesthesia Used: 4% Lidocaine Solution Depth: Down to and including healthy tissue and in the subcutaneous layer Percentage of wound debrided: 100 Instrument Used: - (#313 blade) Tissue Removed: Fibrous, devitalized subcutaneous, biofilm, slough Severity: Fat Layer Exposed Amount of bleeding with debridement: Mild Bleeding Controlled with: Compression and gauze Patient tolerated procedure: Patient tolerated procedure well Post-Debridement Measurements and Additional Note: Post-Debridement Measurements/Treatment - Nurse 1 - General Ulcer Assessment Start: 12/30/21 09:23 Freq: Status: Active Protocol: TAMIR Activity Type Activity Date Activity User E-Sign Co-Sign Detail Recorded Client Recorded Date Recorded By Document 12/30/21 09:23 [facility] [id number] 12/30/21 09:29 [facility] Document 01/06/22 09:47 [facility] [id number] 01/06/22 09:53 [facility] Document 01/13/22 09:28 [facility] [id number] 01/13/22 09:33 [facility] 12/30/21 01/06/22 01/13/22 09:23 09:47 09:28 - Today's Visit Information Type of service Follow-up Visit Follow-up Visit Follow-up Visit (Physician/COLLECTOR (Physician/COLLECTOR (Physician/COLLECTOR ) ) ) Arrival Mode Ambulatory Ambulatory Ambulatory Transfer Assistance None None Accompanied by Patient Identification Verified (Name & Yes Yes ) Patient Requires Transmission-Based No No Precautions Height and Weight Body Mass Index (BMI) 21.2 21.2 21.2 BMI Classification Normal Normal Normal Vital Signs Temperature (97.8 F-99.1 F) 97.8 F 95.4 F L 97 F L Temperature Source Temporal Temporal Temporal Pulse Rate (60-100) 67 70 69 Pulse Location Monitor Monitor Monitor Respiratory Rate (12-18) 16 16 Respiratory rate source Observation Observation Oxygen Delivery Method Room Air Room Air Blood Pressure (90/60-120/80) 123/61 H 109/55 L 102/56 L Blood Pressure Mean (mm Hg) 81 73 71 Source Monitor Monitor Monitor Position Sitting Sitting Blood Pressure Location Left Arm Left Arm History Since Last Visit- (Skip if this is Patient's initial visit) Have you changed medications since your No No No last visit? Any new allergies or adverse reactions No No No Had a fall/change in ADL's that may No No No increase risk of falls Signs or symptoms of abuse and/or No No No neglect since last visit Have you been in the hospital since your No No No last visit? Has dressing in place as prescribed No Yes Yes Has compression in place as prescribed N/A N/A N/A Has offloadiing in place as prescribed N/A N/A N/A Experienced any changes in pain level or No No No management Left Footwear Regular Shoe Regular Shoe Regular Shoe Right Footwear Regular Shoe Regular Shoe Regular Shoe Pain Scale: 0-10 Numeric Is Patient Pain Free? Yes Yes Yes - Nurse 1 - General Ulcer Measurement Start: 12/30/21 09:23 Freq: Status: Active Protocol: Activity Type Activity Date Activity User E-Sign Co-Sign Detail Recorded Client Recorded Date Recorded By Document 12/30/21 09:23 [facility] [id number] 12/30/21 09:29 [facility] Document 01/06/22 09:47 [facility] [id number] 01/06/22 09:53 [facility] Document 01/13/22 09:28 [facility] [id number] 01/13/22 09:33 [facility] 12/30/21 01/06/22 01/13/22 09:23 09:47 09:28 Wound Center Nurse 1 #2- R 1ST MET HEAD -Combined with other wound No No No -Current Size (cm) - Length 0.3 0.4 0.3 -Current Size (cm) - Width 0.4 0.6 0.4 -Current Size (cm) - Depth 0.3 0.3 0.3 -Total Square Cm 0.12 0.24 0.12 -Date of Last Picture (Recall this 01/13/22 field) -Photo Taken No No Yes -Epithelialization None Present None Present -Tunneling No No No -Undermining/Tunneling Yes No No -Undermining/Tunneling Starts (O'clock 8 ) -Undermining/Tunneling Ends (O'clock) 2 -Maximum Distance (cm) 0.5 -Circular Undermining No No No -Exudate Amt None Present Small Small -Exudate Type Serosanguineous Serosanguineous -Wound Margin Distinct, Distinct, Distinct, Outline Outline Outline Attached Attached Attached -Granulation Amt None Present (0 Large (67-100%) Small (1-33%) %) -Granulation Quality [place] -Slough/Fibrin Yes Yes Yes -Necrosis Amt Large (67-100%) Small (1-33%) Small (1-33%) -Necrotic Tissue Type Adherent Slough Adherent Slough Adherent Slough -Structure Exposed N/A -Texture (Kathya-wound Skin Appearance) Assessed,Callus Callus Assessed,Callus ,Scarring -Moisture (Kathya-wound Skin Appearance) Assessed,Dry/ Assessed,Dry/ No Abnormality, Scaly Scaly Assessed -Color (Kathya-wound Skin Appearance) Assessed Assessed No Abnormality, Assessed -Temperature (Kathya-wound Skin No Abnormality No Abnormality No Abnormality Appearance) (Pt Warm) (Pt Warm) (Pt Warm) -Tenderness on Palpation (Kathya-wound No No No Skin Appearance) -Ulcer Cleansing Rinsed/ Rinsed/ Rinsed/ Irrigated with Irrigated with Irrigated with Saline Saline Saline -Foul Odor after Cleansing No No -Anesthetic Used 5% Lidocaine 5% Lidocaine 4% Lidocaine Gel Gel Solution WC - Nurse 2 - General Ulcer CM Notes Start: 12/30/21 09:23 Freq: Status: Active Protocol: Activity Type Activity Date Activity User E-Sign Co-Sign Detail Recorded Client Recorded Date Recorded By Document 12/30/21 13:22 PL [id number] 12/30/21 13:23 PL Document 01/06/22 10:07 [facility] [id number] 01/06/22 10:09 SIMRAN 12/30/21 01/06/22 13:22 10:07 Wound Center Nurse 2 #2- R 1ST MET HEAD -Time 09:46 10:08 -Correct Patient Yes Yes -Correct Side, Site, Position Yes Yes -Correct Procedure Yes Yes -Procedure Performed Yes Yes -Type of Procedure Debridement Debridement -Clinical Debridement Subcutaneous Subcutaneous -Tissue Removed Subcutaneous Subcutaneous -Post Debridement (cm) - Length 0.3 0.5 -Post Debridement (cm) - Width 0.4 0.6 -Post Debridement (cm) - Depth 0.3 0.2 -Total Square (Post) (cm) 0.12 0.30 -Area of Debridement (cm) - Length 0.3 0.5 -Area of Debridement (cm) - Width 0.4 0.6 -Total Square (Area) (cm) 0.12 0.30 -Tunneling No No -Undermining/Tunneling No No -Circular Undermining No No -Wound/Ulcer Outcome Not Healed Not Healed -Ulcer Cleansing Rinsed/ Rinsed/ Irrigated with Irrigated with Saline Saline -Foul Odor after Cleansing No No -Bioengineered Tissue No No -Bleeding Controlled with Pressure Pressure -Treatment Response Procedure Procedure Tolerated Well Tolerated Well -Offloading No -Debridement - Subq, 1st 20sq cm Yes Yes Pain Scale: 0-10 Numeric Is Patient Pain Free? Yes Yes - Nurse 3 - General Ulcer D/C NN Start: 12/30/21 09:23 Freq: Status: Active Protocol: Activity Type Activity Date Activity User E-Sign Co-Sign Detail Recorded Client Recorded Date Recorded By Document 12/30/21 12:16 KR [id number] 12/30/21 12:17 KR Document 01/06/22 10:20 [facility] [id number] 01/06/22 10:21 [facility] Document 01/13/22 12:10 AK [id number] 01/13/22 12:11 [place] 12/30/21 01/06/22 01/13/22 12:16 10:20 12:10 Wound Care Nurse 3 #2- R 1ST MET HEAD -Ulcer Cleansing Rinsed/ Rinsed/ Rinsed/ Irrigated with Irrigated with Irrigated with Saline Saline Saline -Foul Odor after Cleansing No No -Negative Pressure Wound Therapy N/A -Primary Dressing Applied Promogran Promogran Promogran Jaja Matter Jaja Matter Jaja Matter -Primary Dressing Covered/Secured with Dry Gauze, Dry Gauze, Dry Gauze & Secured with Secured with Roll Gauze, Tape Tape Secured with Tape -Promogran Jaja Matter 1 1 1 Treatment Response Procedure Tolerated Well Pain Scale: 0-10 Numeric Is Patient Pain Free? Yes Yes Yes - Visit Discharge Discharge Condition Stable Stable Stable Ambulatory Status Ambulatory Ambulatory Ambulatory Transportation Private Auto Private Auto Private Auto Accompanied by Medication Reconcilliation completed & Yes provided to patient/care provider Clinical Summary of Care Provided Yes Assessment/Plan Assessment/Plan (1) Non-pressure chronic ulcer of other part of right foot with fat layer exposed: CODE(S): L97.512 - Non-pressure chronic ulcer of other part of right foot with fat layer exposed (2) Non-pressure chronic ulcer of other part of left foot with fat layer exposed: CODE(S): L97.522 - Non-pressure chronic ulcer of other part of left foot with fat layer exposed (3) Callus of foot: CODE(S): L84 - Corns and callosities (4) Diabetes mellitus, type II: CODE(S): E11.9 - Type 2 diabetes mellitus without complications (5) Parkinsons disease: CODE(S): G20 - Parkinson's disease (6) Acute renal insufficiency: CODE(S): N28.9 - Disorder of kidney and ureter, unspecified (7) Generalized weakness: CODE(S): R53.1 - Weakness PLAN: This is a 75-year-old male who presents to the wound care center for follow-up of bilateral foot callus with wounds subfirst metatarsal head right foot and callus tissue subthird metatarsal head left foot and subfifth metatarsal head right foot complicated by diabetes mellitus type 2 with peripheral polyneuropathy, Parkinson's disease, acute renal insufficiency, hypertension, generalized weakness, and hyperlipidemia. Patient seen and evaluated. Vascular status intact to bilateral lower extremities with palpable pedal pulses, DP and PT. subthird metatarsal head left foot demonstrates some callus tissue buildup which was debrided sharply with a #313 blade without incident. Site remains healed. subfifth metatarsal head right demonstrates very little callus tissue buildup. Site remains healed. Recommend continued application of urea 42% to right foot subfifth and left foot subthird callus tissue. Debridement of subfirst metatarsal head ulcer of the right foot performed with a #313 blade removing hyperkeratotic tissue, macerated tissue, biofilm, and slough. Debridement performed to the subcutaneous tissue level. Ulceration measures 0.3cm x 0.4cm x 0.3cm. No signs of infection. Offloading pad placed bottom of his diabetic insert of the right foot is helping to decrease ulcerative size. Ulceration site dressed with Jaja with dry sterile dressing. Dressings are to be changed daily. I reminded his how the pressure sites on his feet form calluses which can contribute to wounds with continued shear forces. I discussed how calluses can also hide wounds. I discussed with the patient to continue to check his feet daily for any signs of wounds or pressure sites. I discussed with the patient that he is to remain in the diabetic shoes with inserts for proper offloading of the pressure sites and to not wear house sandals or house slippers or go barefoot. I discussed with them that his wounds are caused secondarily from pressure due to his atrophic fat pad at the forefoot and plantigrade metatarsals creating direct pressure at the forefoot and pressure reduction is the fields to continued healing and prevention or recurrence of wounds. I discussed the localized signs of infection with the patient's and his today and instructed them if they notice any increased redness around the wound, purulent drainage, malodor, red streaking going up the leg, or if you experiences any nausea, vomiting, fever, chills to go to the emergency department for treatment as these are signs of a progressing infection. and patient voiced understanding of this. I reviewed and discussed his case today. Debridement was performed today as noted in the clinical panel to all of the ulcer sites. The following work up and care recommendations were made: Dressing: Jaja, dry sterile dressing to the subfirst metatarsal wound of the right foot Wash: Soap and water Tissue growth optimization: Jaja Offload: Diabetic shoe with inserts Vascular: Palpable pedal pulses Edema: No edema Infection: No localized signs of infection Pain: Patient may take [id number] Tylenol extra strength for any pain or discomfort Host factors: Diabetes mellitus type 2 with peripheral polyneuropathy, proper glycemic control offloading with diabetic patient shoes discussed I answered all the patient's questions. To return to the wound healing center in 1 weeks or call sooner if the patient has any questions or concerns. Note: zanda speech recognition application infrastructure engineer software was used to create portions of this document. Sound-alike and misspelled words, as well as other application infrastructure engineer errors may be contained in the documentation.
[2022-01-20 09:27] VITALS: BP 118/56; PULSE 71; RESP 18; TEMP 36.1; BMI 21.2
--- NOTE | 2022-01-20 10:12 | PCM.WC.PN ---
History of Present Illness Date of Service: 01/20/22 Chief Complaint: Foot wound History of Wound: 75-year-old male who was referred for evaluation relative to wounds on his feet. He has apparently been under the care of Dr. Cheung, podiatric specialist, recently, though no such medical records are available. According to the patient, and his , the patient was evaluated in Dr. Cheung's office, and the calluses on the plantar aspect of both feet were scraped. Bleeding was encountered. The patient indicates that he was then referred for further evaluation and management at the [facility]. The patient's pre-existing medical problems include diabetes mellitus, hyperlipidemia, Parkinson's disease, hypertension, debility, and generalized weakness. Subjective Subjective This 76-year-old male presents for follow-up to the wound care center with a right foot subfirst metatarsal ulceration. He also has a callus to his subfourth metatarsal the right foot and subthird metatarsal of the left foot with history of ulceration at the sites. He is accompanied by his today. He remains compliant in wearing his diabetic shoes with protective inserts with offloading padding and applying 42% urea cream to the callus sites. He continues to dress the ulceration site with Jaja daily. He denies any constitutional symptoms today. He has no other complaints today. Objective Data Objective Data Vital Signs: Vital Signs Temp Pulse Resp BP 97 F L 71 18 118/56 L 01/20/22 09:27 01/20/22 09:27 01/20/22 09:27 01/20/22 09:27 Oxygen Delivery Method Room Air Weight: 67.132 kg Body Mass Index (BMI) 21.2 Physical Exam Const alert, oriented x3 and no apparent distress General Appearance: cooperative and comfortable HEENT normocephalic Eyes General Eye: normal appearance of both eyes Neck General: normal visual inspection Lymph Lymphatic: no lymphadenopathy noted and no lymphedema noted Chest inspection of chest normal Resp normal respiratory effort Cardio regular rate and regular rhythm Extremity normal capillary refill, no calf tenderness and no pedal edema Skin no rashes or lesions noted and no jaundice Skin Narrative: Skin is thin/atrophic. There is fat pad atrophy of the forefoot with palpable metatarsal heads 1 through 5 bilateral. Wound Narrative: Subfirst metatarsal ulceration measures 0.2 cm x 0.3 cm x 0.1 cm. Ulcerative base demonstrates healthy granular tissue with surrounding hyperkeratosis. No signs of infection. Neuro oriented x3 and moves all extremities Motor Exam: strength 5/5 throughout and clonus absent Debridement Note Debridement Note Wound debrided: Some first metatarsal head Laterality: Right Wound Grade/Stage: Owusu stage I Type of Debridement: Excisional debridement Anesthesia Used: 5% Lidocaine Gel Depth: Down to and including healthy tissue and in the subcutaneous layer Percentage of wound debrided: 100 Instrument Used: - (#313 blade) Tissue Removed: Fibrous, devitalized subcutaneous, biofilm, slough Severity: Fat Layer Exposed Amount of bleeding with debridement: Mild Bleeding Controlled with: Compression and gauze Patient tolerated procedure: Patient tolerated procedure well Post-Debridement Measurements and Additional Note: Post-Debridement Measurements/Treatment - Nurse 1 - General Ulcer Assessment Start: 12/30/21 09:23 Freq: Status: Active Protocol: PRABHUEXCheyanne Activity Type Activity Date Activity User E-Sign Co-Sign Detail Recorded Client Recorded Date Recorded By Document 12/30/21 09:23 [facility] [id number] 12/30/21 09:29 [facility] Document 01/06/22 09:47 [facility] [id number] 01/06/22 09:53 [facility] Document 01/13/22 09:28 [facility] [id number] 01/13/22 09:33 [facility] Document 01/20/22 09:27 OR [id number] 01/20/22 09:33 OR 12/30/21 01/06/22 01/13/22 09:23 09:47 09:28 - Today's Visit Information Type of service Follow-up Visit Follow-up Visit Follow-up Visit (Physician/OFFICE SUPPORT CLERK (Physician/OFFICE SUPPORT CLERK (Physician/OFFICE SUPPORT CLERK ) ) ) Arrival Mode Ambulatory Ambulatory Ambulatory Transfer Assistance None None Accompanied by Patient Identification Verified (Name & Yes Yes ) Patient Requires Transmission-Based No No Precautions Finger Stick Blood Sugar(mg/dl) (if indicated): Blood Sugar Height and Weight Body Mass Index (BMI) 21.2 21.2 21.2 BMI Classification Normal Normal Normal Vital Signs Temperature (97.8 F-99.1 F) 97.8 F 95.4 F L 97 F L Temperature Source Temporal Temporal Temporal Pulse Rate (60-100) 67 70 69 Pulse Location Monitor Monitor Monitor Respiratory Rate (12-18) 16 16 Respiratory rate source Observation Observation Oxygen Delivery Method Room Air Room Air Blood Pressure (90/60-120/80) 123/61 H 109/55 L 102/56 L Blood Pressure Mean (mm Hg) 81 73 71 Source Monitor Monitor Monitor Position Sitting Sitting Blood Pressure Location Left Arm Left Arm History Since Last Visit- (Skip if this is Patient's initial visit) Have you changed medications since your No No No last visit? Any new allergies or adverse reactions No No No Had a fall/change in ADL's that may No No No increase risk of falls Signs or symptoms of abuse and/or No No No neglect since last visit Have you been in the hospital since your No No No last visit? Has dressing in place as prescribed No Yes Yes Has compression in place as prescribed N/A N/A N/A Has offloadiing in place as prescribed N/A N/A N/A Experienced any changes in pain level or No No No management Left Footwear Regular Shoe Regular Shoe Regular Shoe Right Footwear Regular Shoe Regular Shoe Regular Shoe Pain Scale: 0-10 Numeric Is Patient Pain Free? Yes Yes Yes 01/20/22 09:27 WC - Today's Visit Information Type of service Follow-up Visit (Physician/OFFICE SUPPORT CLERK ) Arrival Mode Ambulatory Transfer Assistance Accompanied by Patient Identification Verified (Name & Yes ) Patient Requires Transmission-Based Precautions Finger Stick Blood Sugar(mg/dl) (if 125 indicated): Blood Sugar Stated by Patient Height and Weight Body Mass Index (BMI) 21.2 BMI Classification Normal Vital Signs Temperature (97.8 F-99.1 F) 97 F L Temperature Source Temporal Pulse Rate (60-100) 71 Pulse Location Monitor Respiratory Rate (12-18) 18 Respiratory rate source Observation Oxygen Delivery Method Room Air Blood Pressure (90/60-120/80) 118/56 L Blood Pressure Mean (mm Hg) 76 Source Monitor Position Sitting Blood Pressure Location Left Arm History Since Last Visit- (Skip if this is Patient's initial visit) Have you changed medications since your last visit? Any new allergies or adverse reactions Had a fall/change in ADL's that may increase risk of falls Signs or symptoms of abuse and/or neglect since last visit Have you been in the hospital since your last visit? Has dressing in place as prescribed Yes Has compression in place as prescribed Yes Has offloadiing in place as prescribed Yes Experienced any changes in pain level or Yes management Left Footwear Diabetic Shoe Right Footwear Diabetic Shoe Pain Scale: 0-10 Numeric Is Patient Pain Free? Yes WC - Nurse 1 - General Ulcer Measurement Start: 12/30/21 09:23 Freq: Status: Active Protocol: Activity Type Activity Date Activity User E-Sign Co-Sign Detail Recorded Client Recorded Date Recorded By Document 12/30/21 09:23 [facility] [id number] 12/30/21 09:29 [facility] Document 01/06/22 09:47 [facility] [id number] 01/06/22 09:53 [facility] Document 01/13/22 09:28 [facility] [id number] 01/13/22 09:33 BM Document 01/20/22 09:27 OR [id number] 01/20/22 09:33 MT 12/30/21 01/06/22 01/13/22 09:23 09:47 09:28 Wound Center Nurse 1 #2- R 1ST MET HEAD -Combined with other wound No No No -Current Size (cm) - Length 0.3 0.4 0.3 -Current Size (cm) - Width 0.4 0.6 0.4 -Current Size (cm) - Depth 0.3 0.3 0.3 -Total Square Cm 0.12 0.24 0.12 -Date of Last Picture (Recall this 01/13/22 field) -Photo Taken No No Yes -Epithelialization None Present None Present -Tunneling No No No -Undermining/Tunneling Yes No No -Undermining/Tunneling Starts (O'clock 8 ) -Undermining/Tunneling Ends (O'clock) 2 -Maximum Distance (cm) 0.5 -Circular Undermining No No No -Exudate Amt None Present Small Small -Exudate Type Serosanguineous Serosanguineous -Wound Margin Distinct, Distinct, Distinct, Outline Outline Outline Attached Attached Attached -Granulation Amt None Present (0 Large (67-100%) Small (1-33%) %) -Granulation Quality Red [place] -Slough/Fibrin Yes Yes Yes -Necrosis Amt Large (67-100%) Small (1-33%) Small (1-33%) -Necrotic Tissue Type Adherent Slough Adherent Slough Adherent Slough -Structure Exposed N/A -Texture (Kathya-wound Skin Appearance) Assessed,Callus Callus Assessed,Callus ,Scarring -Moisture (Kathya-wound Skin Appearance) Assessed,Dry/ Assessed,Dry/ No Abnormality, Scaly Scaly Assessed -Color (Kathya-wound Skin Appearance) Assessed Assessed No Abnormality, Assessed -Temperature (Kathya-wound Skin No Abnormality No Abnormality No Abnormality Appearance) (Pt Warm) (Pt Warm) (Pt Warm) -Tenderness on Palpation (Kathya-wound No No No Skin Appearance) -Ulcer Cleansing Rinsed/ Rinsed/ Rinsed/ Irrigated with Irrigated with Irrigated with Saline Saline Saline -Foul Odor after Cleansing No No -Anesthetic Used 5% Lidocaine 5% Lidocaine 4% Lidocaine Gel Gel Solution Lower Limb Edema Present 01/20/22 09:27 Wound Center Nurse 1 #2- R 1ST MET HEAD -Combined with other wound -Current Size (cm) - Length 0.3 -Current Size (cm) - Width 0.7 -Current Size (cm) - Depth 0.3 -Total Square Cm 0.21 -Date of Last Picture (Recall this field) -Photo Taken -Epithelialization -Tunneling -Undermining/Tunneling -Undermining/Tunneling Starts (O'clock ) -Undermining/Tunneling Ends (O'clock) -Maximum Distance (cm) -Circular Undermining Yes -Exudate Amt Small -Exudate Type Serosanguineous -Wound Margin Thickened & Rolled Under -Granulation Amt Medium (34-66%) -Granulation Quality Pale,[place] -Slough/Fibrin -Necrosis Amt Medium (34-66%) -Necrotic Tissue Type Adherent Slough -Structure Exposed -Texture (Kathya-wound Skin Appearance) Assessed -Moisture (Kathya-wound Skin Appearance) Assessed -Color (Kathya-wound Skin Appearance) Assessed, Ecchymosis -Temperature (Kathya-wound Skin No Abnormality Appearance) (Pt Warm) -Tenderness on Palpation (Kathya-wound No Skin Appearance) -Ulcer Cleansing Rinsed/ Irrigated with Saline -Foul Odor after Cleansing No -Anesthetic Used 4% Lidocaine Solution Lower Limb Edema Present NA WC - Nurse 2 - General Ulcer CM Notes Start: 12/30/21 09:23 Freq: Status: Active Protocol: Activity Type Activity Date Activity User E-Sign Co-Sign Detail Recorded Client Recorded Date Recorded By Document 12/30/21 13:22 PL [id number] 12/30/21 13:23 PL Document 01/06/22 10:07 [id number] 01/06/22 10:09 Document 01/13/22 13:55 PL [id number] 01/13/22 13:56 PL 12/30/21 01/06/22 01/13/22 13:22 10:07 13:55 Wound Center Nurse 2 #2- R 1ST MET HEAD -Time 09:46 10:08 09:50 -Correct Patient Yes Yes Yes -Correct Side, Site, Position Yes Yes Yes -Correct Procedure Yes Yes Yes -Procedure Performed Yes Yes Yes -Type of Procedure Debridement Debridement Debridement -Clinical Debridement Subcutaneous Subcutaneous Subcutaneous -Tissue Removed Subcutaneous Subcutaneous Subcutaneous -Post Debridement (cm) - Length 0.3 0.5 0.3 -Post Debridement (cm) - Width 0.4 0.6 0.4 -Post Debridement (cm) - Depth 0.3 0.2 0.3 -Total Square (Post) (cm) 0.12 0.30 0.12 -Area of Debridement (cm) - Length 0.3 0.5 0.3 -Area of Debridement (cm) - Width 0.4 0.6 0.4 -Total Square (Area) (cm) 0.12 0.30 0.12 -Tunneling No No No -Undermining/Tunneling No No No -Circular Undermining No No No -Wound/Ulcer Outcome Not Healed Not Healed Not Healed -Ulcer Cleansing Rinsed/ Rinsed/ Rinsed/ Irrigated with Irrigated with Irrigated with Saline Saline Saline -Foul Odor after Cleansing No No No -Bioengineered Tissue No No No -Bleeding Controlled with Pressure Pressure Pressure -Treatment Response Procedure Procedure Procedure Tolerated Well Tolerated Well Tolerated Well -Offloading No -Debridement - Subq, 1st 20sq cm Yes Yes Yes Pain Scale: 0-10 Numeric Is Patient Pain Free? Yes Yes Yes WC - Nurse 3 - General Ulcer D/C NN Start: 12/30/21 09:23 Freq: Status: Active Protocol: Activity Type Activity Date Activity User E-Sign Co-Sign Detail Recorded Client Recorded Date Recorded By Document 12/30/21 12:16 KR [id number] 12/30/21 12:17 KR Document 01/06/22 10:20 [facility] [id number] 01/06/22 10:21 [facility] Document 01/13/22 12:10 [place] [id number] 01/13/22 12:11 [place] Document 01/20/22 10:02 [place] [id number] 01/20/22 10:02 [place] 12/30/21 01/06/22 01/13/22 12:16 10:20 12:10 Wound Care Nurse 3 #2- R 1ST MET HEAD -Ulcer Cleansing Rinsed/ Rinsed/ Rinsed/ Irrigated with Irrigated with Irrigated with Saline Saline Saline -Foul Odor after Cleansing No No -Negative Pressure Wound Therapy N/A -Primary Dressing Applied Promogran Promogran Promogran Jaja Matter Jaja Matter Jaja Matter -Primary Dressing Covered/Secured with Dry Gauze, Dry Gauze, Dry Gauze & Secured with Secured with Roll Gauze, Tape Tape Secured with Tape -Promogran Jaja Matter 1 1 1 Treatment Response Procedure Tolerated Well Pain Scale: 0-10 Numeric Is Patient Pain Free? Yes Yes Yes WC - Visit Discharge Discharge Condition Stable Stable Stable Ambulatory Status Ambulatory Ambulatory Ambulatory Transportation Private Auto Private Auto Private Auto Accompanied by Medication Reconcilliation completed & Yes provided to patient/care provider Clinical Summary of Care Provided Yes 01/20/22 10:02 Wound Care Nurse 3 #2- R 1ST MET HEAD -Ulcer Cleansing Rinsed/ Irrigated with Saline -Foul Odor after Cleansing No -Negative Pressure Wound Therapy N/A -Primary Dressing Applied Promogran Jaja Matter -Primary Dressing Covered/Secured with Dry Gauze, Secured with Tape -Promogran Jaja Matter 1 Treatment Response Pain Scale: 0-10 Numeric Is Patient Pain Free? Yes WC - Visit Discharge Discharge Condition Stable Ambulatory Status Ambulatory Transportation Private Auto Accompanied by Medication Reconcilliation completed & Yes provided to patient/care provider Clinical Summary of Care Provided Yes Assessment/Plan Assessment/Plan (1) Non-pressure chronic ulcer of other part of right foot with fat layer exposed: CODE(S): L97.512 - Non-pressure chronic ulcer of other part of right foot with fat layer exposed (2) Non-pressure chronic ulcer of other part of left foot with fat layer exposed: CODE(S): L97.522 - Non-pressure chronic ulcer of other part of left foot with fat layer exposed (3) Callus of foot: CODE(S): L84 - Corns and callosities (4) Diabetes mellitus, type II: CODE(S): E11.9 - Type 2 diabetes mellitus without complications (5) Parkinsons disease: CODE(S): G20 - Parkinson's disease (6) Acute renal insufficiency: CODE(S): N28.9 - Disorder of kidney and ureter, unspecified (7) Generalized weakness: CODE(S): R53.1 - Weakness PLAN: This is a 75-year-old male who presents to the wound care center for follow-up of bilateral foot callus with wounds subfirst metatarsal head right foot and callus tissue subthird metatarsal head left foot and subfifth metatarsal head right foot complicated by diabetes mellitus type 2 with peripheral polyneuropathy, Parkinson's disease, acute renal insufficiency, hypertension, generalized weakness, and hyperlipidemia. Patient seen and evaluated. subthird metatarsal head left foot demonstrates little callus tissue buildup. Site remains healed. subfifth metatarsal head right demonstrates little callus tissue buildup this was sharply debrided with a#313 blade without incident. Site remains healed. Recommend continued application of urea 42% to right foot subfifth and left foot subthird callus tissue. Debridement of subfirst metatarsal head ulcer of the right foot performed with a #313 blade as noted in the clinical panel above. Ulceration measures 0.2cm x 0.3cm x 0.1cm. No signs of infection. Offloading pad remains in place to bottom of his diabetic insert of the right foot, this is helping to decrease ulcerative size. This ulceration site is nearing closure. Ulceration site dressed with Jaja with dry sterile dressing. Dressings are to be changed daily. I reminded his how the pressure sites on his feet form calluses which can contribute to wounds with continued shear forces. I discussed how calluses can also hide wounds. I discussed with the patient to continue to check his feet daily for any signs of wounds or pressure sites. I discussed with the patient that he is to remain in the diabetic shoes with inserts for proper offloading of the pressure sites and to not wear house sandals or house slippers or go barefoot. I discussed with them that his wounds are caused secondarily from pressure due to his atrophic fat pad at the forefoot and plantigrade metatarsals creating direct pressure at the forefoot and pressure reduction is the fields to continued healing and prevention or recurrence of wounds. I discussed the localized signs of infection with the patient's and his today and instructed them if they notice any increased redness around the wound, purulent drainage, malodor, red streaking going up the leg, or if you experiences any nausea, vomiting, fever, chills to go to the emergency department for treatment as these are signs of a progressing infection. and patient voiced understanding of this. I reviewed and discussed his case today. Debridement was performed today as noted in the clinical panel to all of the ulcer sites. The following work up and care recommendations were made: Dressing: Jaja, dry sterile dressing to the subfirst metatarsal wound of the right foot Wash: Soap and water Tissue growth optimization: Jaja Offload: Diabetic shoe with inserts Vascular: Palpable pedal pulses DP and PT Edema: No edema Infection: No localized signs of infection Pain: Patient may take [id number] Tylenol extra strength for any pain or discomfort Host factors: Diabetes mellitus type 2 with peripheral polyneuropathy, proper glycemic control offloading with diabetic patient shoes discussed I answered all the patient's questions. To return to the wound healing center in 1 weeks or call sooner if the patient has any questions or concerns. Note: [employer] speech recognition coal loader software was used to create portions of this document. Sound-alike and misspelled words, as well as other coal loader errors may be contained in the documentation.
== END 2022-01-25 23:59 | disposition home or self-care (01) ==
LOC: WC 09:45
PROVIDERS: PCP Nurse Practitioner Family; Visit Provider Student in an Organized Health Care Education/Training Program
DX: E11.621 Type 2 diabetes mellitus with foot ulcer (principal); G20 Parkinson's disease; L97.512 Non-pressure chronic ulcer of other part of right foot with fat layer exposed; E11.42 Type 2 diabetes mellitus with diabetic polyneuropathy; E78.5 Hyperlipidemia, unspecified; R53.81 Other malaise; I10 Essential (primary) hypertension; R53.1 Weakness; L84 Corns and callosities
CPT/HCPCS: 11042

== ENCOUNTER 2022-02-24 09:30 | Outpatient (RCR) | payer MEDICARE, OTHER, SELFPAY ==
[2022-01-26 00:32] VITALS: BP 118/56; PULSE 71; RESP 18; TEMP 36.1; BMI 21.2
[2022-01-27 09:32] VITALS: BP 124/66; PULSE 70; TEMP 35.8; BMI 21.2
--- NOTE | 2022-01-27 12:47 | PCM.WC.PN ---
History of Present Illness Date of Service: 01/27/22 Chief Complaint: Foot wound History of Wound: 75-year-old male who was referred for evaluation relative to wounds on his feet. He has apparently been under the care of Dr. Cheung, podiatric specialist, recently, though no such medical records are available. According to the patient, and his , the patient was evaluated in Dr. Cheung's office, and the calluses on the plantar aspect of both feet were scraped. Bleeding was encountered. The patient indicates that he was then referred for further evaluation and management at the [facility]. The patient's pre-existing medical problems include diabetes mellitus, hyperlipidemia, Parkinson's disease, hypertension, debility, and generalized weakness. Subjective Subjective This 76-year-old male presents for follow-up to the wound care center with a right foot subfirst metatarsal ulceration. He also has callus formation to his subfourth metatarsal of the right foot and subthird metatarsal to the left foot with history of ulceration at the sites. He is accompanied by his today who assists him in dressing changes. He remains compliant in wearing diabetic shoes with protective inserts with plantar offloading padding. He continues to dress the ulcerative site daily with Jaja. He denies any constitutional symptoms today. He has no other complaints today. Objective Data Objective Data Vital Signs: Vital Signs Temp Pulse Resp BP 96.5 F L 70 18 124/66 H 01/27/22 09:32 01/27/22 09:32 01/26/22 00:32 01/27/22 09:32 Weight: 67.132 kg Body Mass Index (BMI) 21.2 Physical Exam Const alert, oriented x3 and no apparent distress General Appearance: cooperative and comfortable HEENT normocephalic Eyes General Eye: normal appearance of both eyes Neck General: normal visual inspection Lymph Lymphatic: no lymphadenopathy noted and no lymphedema noted Resp normal respiratory effort Cardio regular rate and regular rhythm Extremity normal capillary refill and no calf tenderness Peripheral Pulses: Yes posterior tibial pulses present and dorsalis pedis pulses present Skin no rashes or lesions noted and no jaundice Skin Narrative: Skin is thin/atrophic. There is fat pad atrophy to the forefoot with palpable metatarsal heads 1 through 5 bilateral. Wound Narrative: Some first metatarsal ulceration measures 0.2 cm x 0.2 cm x 0.1 cm. Ulcerative base demonstrates healthy granular tissue with surrounding hyperkeratotic tissue. No signs of infection. Neuro oriented x3 and moves all extremities Debridement Note Debridement Note Wound debrided: Some first metatarsal Laterality: Right Wound Grade/Stage: Owusu stage I Type of Debridement: Excisional debridement Anesthesia Used: 5% Lidocaine Gel Depth: Down to and including healthy tissue and in the subcutaneous layer Percentage of wound debrided: 100 Instrument Used: - (313 blade) Tissue Removed: Fibrous, devitalized subcutaneous, biofilm, slough Severity: Fat Layer Exposed Amount of bleeding with debridement: Mild Bleeding Controlled with: Compression and gauze Patient tolerated procedure: Patient tolerated procedure well Post-Debridement Measurements and Additional Note: Post-Debridement Measurements/Treatment - Nurse 1 - General Ulcer Assessment Start: 01/27/22 09:32 Freq: Status: Active Protocol: TAMIR Activity Type Activity Date Activity User E-Sign Co-Sign Detail Recorded Client Recorded Date Recorded By Document 01/27/22 09:32 AMILCAR [id number] 01/27/22 09:36 AMILCAR 01/27/22 09:32 REECE - Today's Visit Information Type of service Follow-up Visit (Physician/CUSTOMER RETENTION REPRESENTATIVE ) Arrival Mode Ambulatory Patient Identification Verified (Name & Yes ) Height and Weight Body Mass Index (BMI) 21.2 BMI Classification Normal Vital Signs Temperature (97.8 F-99.1 F) 96.5 F L Temperature Source Temporal Pulse Rate (60-100) 70 Pulse Location Monitor Blood Pressure (90/60-120/80) 124/66 H Blood Pressure Mean (mm Hg) 85 Source Monitor Position Sitting Blood Pressure Location Right Arm History Since Last Visit- (Skip if this is Patient's initial visit) Have you changed medications since your No last visit? Any new allergies or adverse reactions No Had a fall/change in ADL's that may No increase risk of falls Signs or symptoms of abuse and/or No neglect since last visit Have you been in the hospital since your No last visit? Has dressing in place as prescribed Yes Has compression in place as prescribed Yes Has offloadiing in place as prescribed N/A Experienced any changes in pain level or No management Left Footwear Regular Shoe Right Footwear Regular Shoe Pain Scale: 0-10 Numeric Is Patient Pain Free? Yes REECE - Nurse 1 - General Ulcer Measurement Start: 01/27/22 09:32 Freq: Status: Active Protocol: Activity Type Activity Date Activity User E-Sign Co-Sign Detail Recorded Client Recorded Date Recorded By Document 01/27/22 09:32 KR [id number] 01/27/22 09:36 KR 01/27/22 09:32 Wound Center Nurse 1 #2- R 1ST MET HEAD -Current Size (cm) - Length 0.3 -Current Size (cm) - Width 0.5 -Current Size (cm) - Depth 0.1 -Total Square Cm 0.15 -Exudate Amt None Present -Exudate Type Sanguineous -Granulation Amt None Present (0 %) -Slough/Fibrin No -Necrosis Amt None Present (0 %) -Texture (Kathya-wound Skin Appearance) Assessed, Scarring -Moisture (Kathya-wound Skin Appearance) Assessed -Color (Kathya-wound Skin Appearance) No Abnormality, Assessed -Temperature (Kathya-wound Skin No Abnormality Appearance) (Pt Warm) -Tenderness on Palpation (Kathya-wound No Skin Appearance) -Ulcer Cleansing Rinsed/ Irrigated with Saline -Foul Odor after Cleansing No -Anesthetic Used 5% Lidocaine Gel WC - Nurse 3 - General Ulcer D/C NN Start: 01/27/22 09:32 Freq: Status: Active Protocol: Activity Type Activity Date Activity User E-Sign Co-Sign Detail Recorded Client Recorded Date Recorded By Document 01/27/22 10:35 KR [id number] 01/27/22 10:36 KR Document 01/27/22 11:02 KR [id number] 01/27/22 11:02 KR 01/27/22 01/27/22 10:35 11:02 Wound Care Nurse 3 #2- R 1ST MET HEAD -Ulcer Cleansing Rinsed/ Rinsed/ Irrigated with Irrigated with Saline Saline -Primary Dressing Applied Promogran Jaja Matter -Other Dressing ABD PAD -Primary Dressing Covered/Secured with Dry Gauze, Secured with Tape -Promogran Jaja Matter 1 Right -Tubular Bandage Double Layer -Size of Tubigrip Used Size E -Size E ($) 2 Pain Scale: 0-10 Numeric Is Patient Pain Free? Yes Yes WC - Visit Discharge Discharge Condition Stable Ambulatory Status Ambulatory Transportation Private Auto Accompanied by Assessment/Plan Assessment/Plan (1) Non-pressure chronic ulcer of other part of right foot with fat layer exposed: CODE(S): L97.512 - Non-pressure chronic ulcer of other part of right foot with fat layer exposed (2) Non-pressure chronic ulcer of other part of left foot with fat layer exposed: CODE(S): L97.522 - Non-pressure chronic ulcer of other part of left foot with fat layer exposed (3) Callus of foot: CODE(S): L84 - Corns and callosities (4) Diabetes mellitus, type II: CODE(S): E11.9 - Type 2 diabetes mellitus without complications (5) Parkinsons disease: CODE(S): G20 - Parkinson's disease (6) Acute renal insufficiency: CODE(S): N28.9 - Disorder of kidney and ureter, unspecified (7) Generalized weakness: CODE(S): R53.1 - Weakness (8) Hypertension: CODE(S): I10 - Essential (primary) hypertension (9) HLD (hyperlipidemia): CODE(S): E78.5 - Hyperlipidemia, unspecified PLAN: This is a 75-year-old male who presents to the wound care center for follow-up of bilateral foot callus with wounds subfirst metatarsal head right foot and callus tissue subthird metatarsal head left foot and subfifth metatarsal head right foot complicated by diabetes mellitus type 2 with peripheral polyneuropathy, Parkinson's disease, acute renal insufficiency, hypertension, generalized weakness, and hyperlipidemia. Patient seen and evaluated. subthird metatarsal head left foot demonstrates little callus tissue buildup. Site remains healed. subfifth metatarsal head right demonstrates little callus tissue buildup this was sharply debrided with a#313 blade without incident. Site remains healed. Recommend continued application of urea 42% to right foot subfifth and left foot subthird callus tissue. Debridement of subfirst metatarsal head ulcer of the right foot performed with a #313 blade as noted in the clinical panel above. Ulceration measures 0.2cm x 0.2cm x 0.1cm. No signs of infection. Offloading pad remains in place to bottom of his diabetic insert of the right foot, this is helping to decrease ulcer size. Additional padding was applied to the bottom of the insert. This ulceration site is nearing closure. Ulceration site dressed with Jaja with dry sterile dressing. Dressings are to be changed daily. I reminded his how the pressure sites on his feet form calluses which can contribute to wounds with continued shear forces. I discussed how calluses can also hide wounds. I discussed with the patient to continue to check his feet daily for any signs of wounds or pressure sites. I discussed with the patient that he is to remain in the diabetic shoes with inserts for proper offloading of the pressure sites and to not wear house sandals or house slippers or go barefoot. I reminded them that his wounds are caused secondarily from pressure due to his atrophic fat pad at the forefoot and plantigrade metatarsals creating direct pressure at the forefoot and pressure reduction is the fields to continued healing and prevention or recurrence of wounds. I discussed the localized signs of infection with the patient's and his today and instructed them if they notice any increased redness around the wound, purulent drainage, malodor, red streaking going up the leg, or if you experiences any nausea, vomiting, fever, chills to go to the emergency department for treatment as these are signs of a progressing infection. and patient voiced understanding of this. The following work up and care recommendations were made: Dressing: Jaja, dry sterile dressing to the subfirst metatarsal wound of the right foot Wash: Soap and water Tissue growth optimization: Jaja Offload: Diabetic shoe with inserts Vascular: Palpable pedal pulses DP and PT Edema: No edema Infection: No localized signs of infection Pain: Patient may take [id number] Tylenol extra strength for any pain or discomfort Host factors: Diabetes mellitus type 2 with peripheral polyneuropathy, proper glycemic control offloading with diabetic patient shoes discussed I answered all the patient's questions. To return to the wound healing center in 1 weeks or call sooner if the patient has any questions or concerns. Note: Switchboard speech recognition horse show judge software was used to create portions of this document. Sound-alike and misspelled words, as well as other horse show judge errors may be contained in the documentation.
[2022-02-03 09:37] VITALS: BP 107/53; PULSE 75; TEMP 36.4; BMI 21.2
--- NOTE | 2022-02-03 11:53 | PN.PCM_ITS ---
History of Present Illness Date of Service: 02/03/22 Chief Complaint: Foot wound History of Wound: 75-year-old male who was referred for evaluation relative to wounds on his feet. He has apparently been under the care of Dr. Cheung, podiatric specialist, recently, though no such medical records are available. According to the patient, and his , the patient was evaluated in Dr. Cheung's office, and the calluses on the plantar aspect of both feet were scraped. Bleeding was encountered. The patient indicates that he was then referred for further evaluation and management at the [facility]. The patient's pre-existing medical problems include diabe dalila mellitus, hyperlipidemia, Parkinson's disease, hypertension, debility, and generalized weakness. Subjective Subjective This 76-year-old male presents for follow-up to the wound care center with a right foot subfirst metatarsal ulceration. He also has callus formation to his subfourth metatarsal of the right foot and subthird metatarsal to the left foot with history of ulceration at the sites. He is accompanied by his today who assists him in dressing changes with Jaja. He remains compliant in wearing diabetic shoes with protective inserts with plantar offloading padding. He denies any constitutional symptoms today. He has no other complaints today. Objective Data Objective Data Vital Signs: Vital Signs Temp Pulse Resp BP 97.6 F L 75 18 107/53 L 02/03/22 09:37 02/03/22 09:37 01/26/22 00:32 02/03/22 09:37 Weight: 67.132 kg Body Mass Index (BMI) 21.2 Physical Exam Const alert, oriented x3 and no apparent distress General Appearance: cooperative and comfortable HEENT normocephalic Eyes General Eye: normal appearance of both eyes Neck General: normal visual inspection Lymph Lymphatic: no lymphadenopathy noted and no lymphedema noted Resp normal respiratory effort Cardio regular rate and regular rhythm Extremity normal capillary refill and no calf tenderness Skin no rashes or lesions noted and no jaundice Skin Narrative: Skin is thin/atrophic. There is fat pad atrophy to the forefoot with palpable metatarsal heads 1 through 5 bilateral. Wound Narrative: Some first metatarsal ulceration measures 0.3 cm x 0.6 cm x 0.1 cm. Ulcerative base demonstrates healthy granular tissue with surrounding hyperkeratotic tissue. No signs of infection. Neuro oriented x3 and moves all extremities Debridement Note Debridement Note Wound debrided: Subfirst metatarsal Laterality: Right Wound Grade/Stage: Owusu stage I Type of Debridement: Excisional debridement Anesthesia Used: 5% Lidocaine Gel Depth: Down to and including healthy tissue and in the subcutaneous layer Percentage of wound debrided: 100 Instrument Used: - (313 blade) Tissue Removed: Fibrous, devitalized subcutaneous, biofilm, slough Severity: Fat Layer Exposed Amount of bleeding with debridement: Mild Bleeding Controlled with: Compression and gauze Patient tolerated procedure: Patient tolerated procedure well Post-Debridement Measurements and Additional Note: Post-Debridement Measurements/Treatment - Nurse 1 - General Ulcer Assessment Start: 01/27/22 09:32 Freq: Status: Active Protocol: TAMIR Activity Type Activity Date Activity User E-Sign Co-Sign Detail Recorded Client Recorded Date Recorded By Document 01/27/22 09:32 AMILCAR [id number] 01/27/22 09:36 AMILCAR Document 02/03/22 09:37 AMILCAR [id number] 02/03/22 09:39 AMILCAR 01/27/22 02/03/22 09:32 09:37 - Today's Visit Information Type of service Follow-up Visit Follow-up Visit (Physician/FARM EQUIPMENT ASSEMBLER (Physician/FARM EQUIPMENT ASSEMBLER ) ) Arrival Mode Ambulatory Ambulatory Patient Identification Verified (Name & Yes Yes ) Height and Weight Body Mass Index (BMI) 21.2 21.2 BMI Classification Normal Normal Vital Signs Temperature (97.8 F-99.1 F) 96.5 F L 97.6 F L Temperature Source Temporal Temporal Pulse Rate (60-100) 70 75 Pulse Location Monitor Monitor Blood Pressure (90/60-120/80) 124/66 H 107/53 L Blood Pressure Mean (mm Hg) 85 71 Source Monitor Monitor Position Sitting Blood Pressure Location Right Arm History Since Last Visit- (Skip if this is Patient's initial visit) Have you changed medications since your No No last visit? Any new allergies or adverse reactions No No Had a fall/change in ADL's that may No No increase risk of falls Signs or symptoms of abuse and/or No No neglect since last visit Have you been in the hospital since your No No last visit? Has dressing in place as prescribed Yes Yes Has compression in place as prescribed Yes N/A Has offloadiing in place as prescribed N/A N/A Experienced any changes in pain level or No No management Left Footwear Regular Shoe Regular Shoe Right Footwear Regular Shoe Regular Shoe Pain Scale: 0-10 Numeric Is Patient Pain Free? Yes Yes REECE - Nurse 1 - General Ulcer Measurement Start: 01/27/22 09:32 Freq: Status: Active Protocol: Activity Type Activity Date Activity User E-Sign Co-Sign Detail Recorded Client Recorded Date Recorded By Document 01/27/22 09:32 [id number] 01/27/22 09:36 KR Document 02/03/22 09:37 KR [id number] 02/03/22 09:39 KR 01/27/22 02/03/22 09:32 09:37 Wound Center Nurse 1 #2- R 1ST MET HEAD -Combined with other wound No -Current Size (cm) - Length 0.3 0.3 -Current Size (cm) - Width 0.5 0.6 -Current Size (cm) - Depth 0.1 0.1 -Total Square Cm 0.15 0.18 -Photo Taken No -Tunneling No -Undermining/Tunneling No -Circular Undermining No -Change in Wound Grade/Stage No -Exudate Amt None Present Small -Exudate Type Sanguineous Serosanguineous -Wound Margin Distinct, Outline Attached -Granulation Amt None Present (0 Small (1-33%) %) -Granulation Quality Stow -Slough/Fibrin No -Necrosis Amt None Present (0 Medium (34-66%) %) -Necrotic Tissue Type Adherent Slough -Structure Exposed N/A -Texture (Kathya-wound Skin Appearance) Assessed, Assessed,Callus Scarring -Moisture (Kathya-wound Skin Appearance) Assessed No Abnormality, Assessed -Color (Kathya-wound Skin Appearance) No Abnormality, No Abnormality, Assessed Assessed -Temperature (Kathya-wound Skin No Abnormality No Abnormality Appearance) (Pt Warm) (Pt Warm) -Tenderness on Palpation (Kathya-wound No No Skin Appearance) -Ulcer Cleansing Rinsed/ Rinsed/ Irrigated with Irrigated with Saline Saline -Foul Odor after Cleansing No No -Anesthetic Used 5% Lidocaine 4% Lidocaine Gel Solution REECE - Nurse 2 - General Ulcer CM Notes Start: 01/27/22 09:32 Freq: Status: Active Protocol: Activity Type Activity Date Activity User E-Sign Co-Sign Detail Recorded Client Recorded Date Recorded By Document 01/27/22 13:38 PL [id number] 01/27/22 13:39 PL Document 02/03/22 10:04 JF [id number] 02/03/22 10:09 JF 01/27/22 02/03/22 13:38 10:04 Wound Center Nurse 2 #2- R 1ST MET HEAD -Time 09:58 10:05 -Correct Patient Yes Yes -Correct Side, Site, Position Yes Yes -Correct Procedure Yes Yes -Procedure Performed Yes Yes -Type of Procedure Debridement Debridement -Clinical Debridement Subcutaneous Subcutaneous -Tissue Removed Subcutaneous Subcutaneous -Post Debridement (cm) - Length 0.3 0.5 -Post Debridement (cm) - Width 0.5 0.6 -Post Debridement (cm) - Depth 0.1 0.2 -Total Square (Post) (cm) 0.15 0.30 -Area of Debridement (cm) - Length 0.3 0.5 -Area of Debridement (cm) - Width 0.5 0.6 -Total Square (Area) (cm) 0.15 0.30 -Tunneling No No -Undermining/Tunneling No No -Circular Undermining No No -Wound/Ulcer Outcome Not Healed Not Healed -Ulcer Cleansing Rinsed/ Rinsed/ Irrigated with Irrigated with Saline Saline -Foul Odor after Cleansing No No -Bioengineered Tissue No No -Bleeding Controlled with Pressure Pressure -Treatment Response Procedure Procedure Tolerated Well Tolerated Well -Offloading No -Debridement - Subq, 1st 20sq cm Yes Yes Pain Scale: 0-10 Numeric Is Patient Pain Free? Yes Yes WC - Nurse 3 - General Ulcer D/C NN Start: 01/27/22 09:32 Freq: Status: Active Protocol: Activity Type Activity Date Activity User E-Sign Co-Sign Detail Recorded Client Recorded Date Recorded By Document 01/27/22 10:35 KR [id number] 01/27/22 10:36 KR Document 01/27/22 11:02 KR [id number] 01/27/22 11:02 KR Document 02/03/22 10:22 KR [id number] 02/03/22 10:22 KR 01/27/22 01/27/22 02/03/22 10:35 11:02 10:22 Wound Care Nurse 3 #2- R 1ST MET HEAD -Ulcer Cleansing Rinsed/ Rinsed/ Rinsed/ Irrigated with Irrigated with Irrigated with Saline Saline Saline -Primary Dressing Applied Promogran Promogran Jaja Matter -Other Dressing ABD PAD -Primary Dressing Covered/Secured with Dry Gauze, Dry Gauze, Secured with Secured with Tape Tape -Promogran 1 -Promogran Jaja Matter 1 Right -Tubular Bandage Double Layer -Size of Tubigrip Used Size E -Size E ($) 2 Pain Scale: 0-10 Numeric Is Patient Pain Free? Yes Yes Yes WC - Visit Discharge Discharge Condition Stable Stable Ambulatory Status Ambulatory Ambulatory Transportation Private Auto Private Auto Accompanied by Assessment/Plan Assessment/Plan (1) Non-pressure chronic ulcer of other part of right foot with fat layer exposed: CODE(S): L97.512 - Non-pressure chronic ulcer of other part of right foot with fat layer exposed (2) Non-pressure chronic ulcer of other part of left foot with fat layer exposed: CODE(S): L97.522 - Non-pressure chronic ulcer of other part of left foot with fat layer exposed (3) Callus of foot: CODE(S): L84 - Corns and callosities (4) Diabetes mellitus, type II: CODE(S): E11.9 - Type 2 diabetes mellitus without complications (5) Parkinsons disease: CODE(S): G20 - Parkinson's disease (6) Acute renal insufficiency: CODE(S): N28.9 - Disorder of kidney and ureter, unspecified (7) Generalized weakness: CODE(S): R53.1 - Weakness (8) Hypertension: CODE(S): I10 - Essential (primary) hypertension (9) HLD (hyperlipidemia): CODE(S): E78.5 - Hyperlipidemia, unspecified PLAN: This is a 75-year-old male who presents to the wound care center for follow-up of bilateral foot callus with wounds subfirst metatarsal head right foot and callus tissue subthird metatarsal head left foot and subfifth metatarsal head right foot complicated by diabetes mellitus type 2 with peripheral polyneuropathy, Parkinson's disease, acute renal insufficiency, hypertension, generalized weakness, and hyperlipidemia. Patient seen and evaluated. subthird metatarsal head left foot demonstrates little callus tissue buildup. Site remains healed. subfifth metatarsal head right demonstrates little callus tissue buildup this was sharply debrided with a#313 blade without incident. Site remains healed. Recommend continued application of urea 42% to right foot subfifth and left foot subthird callus tissue. Debridement of subfirst metatarsal head ulcer of the right foot performed with a #313 blade as noted in the clinical panel above. Ulceration measures 0.3cm x 0.6cm x 0.1cm. No signs of infection. Offloading pad remains in place to bottom of his diabetic insert of the right foot, this is helping to decrease ulcer size. This ulceration site is nearing closure. Ulceration site dressed with Jaja with dry sterile dressing. Dressings are to be changed daily. I reminded his how the pressure sites on his feet form calluses which can contribute to wounds with continued shear forces. I discussed how calluses can also hide wounds. I discussed with the patient to continue to check his feet daily for any signs of wounds or pressure sites. I discussed with the patient that he is to remain in the diabetic shoes with inserts for proper offloading of the pressure sites and to not wear house sandals or house slippers or go barefoot. I reminded them that his wounds are caused secondarily from pressure due to his atrophic fat pad at the forefoot and plantigrade metatarsals creating direct pressure at the forefoot and pressure reduction is the fields to continued healing and prevention or recurrence of wounds. I discussed the localized signs of infection with the patient's and his today and instructed them if they notice any increased redness around the wound, purulent drainage, malodor, red streaking going up the leg, or if you experiences any nausea, vomiting, fever, chills to go to the emergency department for treatment as these are signs of a progressing infection. and patient voiced understanding of this. The following work up and care recommendations were made: Dressing: Jaja, dry sterile dressing to the subfirst metatarsal wound of the right foot Wash: Soap and water Tissue growth optimization: Jaja Offload: Diabetic shoe with inserts Vascular: Palpable pedal pulses DP and PT Edema: No edema Infection: No localized signs of infection Pain: Patient may take [id number] Tylenol extra strength for any pain or discomfort Host factors: Diabetes mellitus type 2 with peripheral polyneuropathy, proper glycemic control offloading with diabetic patient shoes discussed I answered all the patient's questions. To return to the wound healing center in 1 weeks or call sooner if the patient has any questions or concerns. Note: [employer] speech recognition product director software was used to create portions of this document. Sound-alike and misspelled words, as well as other product director errors may be contained in the documentation.
[2022-02-10 09:24] VITALS: BP 125/74; PULSE 87; TEMP 36.6; BMI 21.2
--- NOTE | 2022-02-10 09:46 | PN.PCM_ITS ---
History of Present Illness Date of Service: 02/10/22 Chief Complaint: Foot wound History of Wound: 75-year-old male who was referred for evaluation relative to wounds on his feet. He has apparently been under the care of Dr. Cheung, podiatric specialist, recently, though no such medical records are available. According to the patient, and his , the patient was evaluated in Dr. Cheung's office, and the calluses on the plantar aspect of both feet were scraped. Bleeding was encountered. The patient indicates that he was then referred for further evaluation and management at the [facility]. The patient's pre-existing medical problems include diabetes mellitus, hyperlipidemia, Parkinson's disease, hypertension, debility, and generalized weakness. Subjective Subjective This 76-year-old male presents for follow-up to the wound care center with a right foot subfirst metatarsal ulceration. He also has callus formation to his subfourth metatarsal of the right foot and subthird metatarsal to the left foot with history of ulceration at the sites.? He is accompanied by his today who assists him in dressing changes with Jaja.? He remains compliant in wearing diabetic shoes with protective inserts with plantar offloading padding. He denies any constitutional symptoms today.? He has no other complaints today. Objective Data Objective Data Vital Signs: Vital Signs Temp Pulse Resp BP 97.8 F 87 18 125/74 H 02/10/22 09:24 02/10/22 09:24 01/26/22 00:32 02/10/22 09:24 Weight: 67.132 kg Body Mass Index (BMI) 21.2 Physical Exam Const alert, oriented x3 and no apparent distress General Appearance: cooperative and comfortable HEENT normocephalic Eyes General Eye: normal appearance of both eyes Neck General: normal visual inspection Lymph Lymphatic: no lymphadenopathy noted and no lymphedema noted Resp normal respiratory effort Cardio regular rate and regular rhythm Extremity normal capillary refill and no calf tenderness Skin no rashes or lesions noted and no jaundice Skin Narrative: Skin is thin/atrophic. There is fat pad atrophy to the forefoot with palpable metatarsal heads 1 through 5 bilateral. Wound Narrative: Some first metatarsal ulceration measures 0.2 cm x 0.3 cm x 0.1 cm. Ulcerative base demonstrates healthy granular tissue with surrounding hyperkeratotic tissue. No signs of infection. Neuro oriented x3 and moves all extremities Debridement Note Debridement Note Wound debrided: Subfirst metatarsal Laterality: Right Wound Grade/Stage: [place] stage I Type of Debridement: Excisional debridement Anesthesia Used: 5% Lidocaine Gel Depth: Down to and including healthy tissue and in the subcutaneous layer Percentage of wound debrided: 100 Instrument Used: - (313 blade) Tissue Removed: Fibrous, devitalized subcutaneous, biofilm, slough Severity: Fat Layer Exposed Amount of bleeding with debridement: Mild Bleeding Controlled with: Compression and gauze Patient tolerated procedure: Patient tolerated procedure well Post-Debridement Measurements and Additional Note: Post-Debridement Measurements/Treatment - Nurse 1 - General Ulcer Assessment Start: 01/27/22 09:32 Freq: Status: Active Protocol: TAMIR Activity Type Activity Date Activity User E-sign Co-sign Detail Recorded Client Recorded Date Recorded By Document 01/27/22 09:32 AMILCAR [id number] 01/27/22 09:36 KR Document 02/03/22 09:37 [id number] 02/03/22 09:39 Document 02/10/22 09:24 AMILCAR [id number] 02/10/22 09:25 KR 01/27/22 02/03/22 02/10/22 09:32 09:37 09:24 - Today's Visit Information Type of service Follow-up Visit Follow-up Visit Follow-up Visit (Physician/CERTIFIED ADAPTED PHYSICAL EDUCATOR (Physician/CERTIFIED ADAPTED PHYSICAL EDUCATOR (Physician/CERTIFIED ADAPTED PHYSICAL EDUCATOR ) ) ) Arrival Mode Ambulatory Ambulatory Ambulatory Patient Identification Verified (Name & Yes Yes Yes ) Height and Weight Body Mass Index (BMI) 21.2 21.2 21.2 BMI Classification Normal Normal Normal Vital Signs Temperature (97.8 F-99.1 F) 96.5 F L 97.6 F L 97.8 F Temperature Source Temporal Temporal Temporal Pulse Rate (60-100) 70 75 87 Pulse Location Monitor Monitor Monitor Blood Pressure (90/60-120/80) 124/66 H 107/53 L 125/74 H Blood Pressure Mean (mm Hg) 85 71 91 Source Monitor Monitor Monitor Position Sitting Sitting Blood Pressure Location Right Arm Left Arm History Since Last Visit- (Skip if this is Patient's initial visit) Have you changed medications since your No No No last visit? Any new allergies or adverse reactions No No No Had a fall/change in ADL's that may No No No increase risk of falls Signs or symptoms of abuse and/or No No No neglect since last visit Have you been in the hospital since your No No No last visit? Has dressing in place as prescribed Yes Yes Yes Has compression in place as prescribed Yes N/A N/A Has offloadiing in place as prescribed N/A N/A N/A Experienced any changes in pain level or No No No management Left Footwear Regular Shoe Regular Shoe Regular Shoe Right Footwear Regular Shoe Regular Shoe Regular Shoe Pain Scale: 0-10 Numeric Is Patient Pain Free? Yes Yes Yes WC - Nurse 1 - General Ulcer Measurement Start: 01/27/22 09:32 Freq: Status: Active Protocol: Activity Type Activity Date Activity User E-sign Co-sign Detail Recorded Client Recorded Date Recorded By Document 01/27/22 09:32 AMILCAR [id number] 01/27/22 09:36 KR Document 02/03/22 09:37 KR [id number] 02/03/22 09:39 KR Document 02/10/22 09:24 KR [id number] 02/10/22 09:25 KR 01/27/22 02/03/22 02/10/22 09:32 09:37 09:24 Wound Center Nurse 1 #2- R 1ST MET HEAD -Combined with other wound No -Current Size (cm) - Length 0.3 0.3 0.4 -Current Size (cm) - Width 0.5 0.6 0.5 -Current Size (cm) - Depth 0.1 0.1 0.1 -Total Square Cm 0.15 0.18 0.20 -Photo Taken No -Tunneling No -Undermining/Tunneling No -Circular Undermining No -Change in Wound Grade/Stage No -Exudate Amt None Present Small None Present -Exudate Type Sanguineous Serosanguineous -Wound Margin Distinct, Distinct, Outline Outline Attached Attached -Granulation Amt None Present (0 Small (1-33%) Small (1-33%) %) -Granulation Quality [place] -Slough/Fibrin No -Necrosis Amt None Present (0 Medium (34-66%) None Present (0 %) %) -Necrotic Tissue Type Adherent Slough -Structure Exposed N/A -Texture (Kathya-wound Skin Appearance) Assessed, Assessed,Callus Assessed, Scarring Scarring -Moisture (Kathya-wound Skin Appearance) Assessed No Abnormality, No Abnormality, Assessed Assessed -Color (Kathya-wound Skin Appearance) No Abnormality, No Abnormality, No Abnormality, Assessed Assessed Assessed -Temperature (Kathya-wound Skin No Abnormality No Abnormality No Abnormality Appearance) (Pt Warm) (Pt Warm) (Pt Warm) -Tenderness on Palpation (Kathya-wound No No No Skin Appearance) -Ulcer Cleansing Rinsed/ Rinsed/ Rinsed/ Irrigated with Irrigated with Irrigated with Saline Saline Saline -Foul Odor after Cleansing No No No -Anesthetic Used 5% Lidocaine 4% Lidocaine 5% Lidocaine Gel Solution Gel WC - Nurse 2 - General Ulcer CM Notes Start: 01/27/22 09:32 Freq: Status: Active Protocol: Activity Type Activity Date Activity User E-sign Co-sign Detail Recorded Client Recorded Date Recorded By Document 01/27/22 13:38 PL [id number] 01/27/22 13:39 PL Document 02/03/22 10:04 [id number] 02/03/22 10:09 01/27/22 02/03/22 13:38 10:04 Wound Center Nurse 2 #2- R 1ST MET HEAD -Time 09:58 10:05 -Correct Patient Yes Yes -Correct Side, Site, Position Yes Yes -Correct Procedure Yes Yes -Procedure Performed Yes Yes -Type of Procedure Debridement Debridement -Clinical Debridement Subcutaneous Subcutaneous -Tissue Removed Subcutaneous Subcutaneous -Post Debridement (cm) - Length 0.3 0.5 -Post Debridement (cm) - Width 0.5 0.6 -Post Debridement (cm) - Depth 0.1 0.2 -Total Square (Post) (cm) 0.15 0.30 -Area of Debridement (cm) - Length 0.3 0.5 -Area of Debridement (cm) - Width 0.5 0.6 -Total Square (Area) (cm) 0.15 0.30 -Tunneling No No -Undermining/Tunneling No No -Circular Undermining No No -Wound/Ulcer Outcome Not Healed Not Healed -Ulcer Cleansing Rinsed/ Rinsed/ Irrigated with Irrigated with Saline Saline -Foul Odor after Cleansing No No -Bioengineered Tissue No No -Bleeding Controlled with Pressure Pressure -Treatment Response Procedure Procedure Tolerated Well Tolerated Well -Offloading No -Debridement - Subq, 1st 20sq cm Yes Yes Pain Scale: 0-10 Numeric Is Patient Pain Free? Yes Yes - Nurse 3 - General Ulcer D/C NN Start: 01/27/22 09:32 Freq: Status: Active Protocol: Activity Type Activity Date Activity User E-sign Co-sign Detail Recorded Client Recorded Date Recorded By Document 01/27/22 10:35 KR [id number] 01/27/22 10:36 KR Document 01/27/22 11:02 KR [id number] 01/27/22 11:02 KR Document 02/03/22 10:22 KR [id number] 02/03/22 10:22 KR 01/27/22 01/27/22 02/03/22 10:35 11:02 10:22 Wound Care Nurse 3 #2- R 1ST MET HEAD -Ulcer Cleansing Rinsed/ Rinsed/ Rinsed/ Irrigated with Irrigated with Irrigated with Saline Saline Saline -Primary Dressing Applied Promogran Promogran Jaja Matter -Other Dressing ABD PAD -Primary Dressing Covered/Secured with Dry Gauze, Dry Gauze, Secured with Secured with Tape Tape -Promogran 1 -Promogran Jaja Matter 1 Right -Tubular Bandage Double Layer -Size of Tubigrip Used Size E -Size E ($) 2 Pain Scale: 0-10 Numeric Is Patient Pain Free? Yes Yes Yes WC - Visit Discharge Discharge Condition Stable Stable Ambulatory Status Ambulatory Ambulatory Transportation Private Auto Private Auto Accompanied by Assessment/Plan Assessment/Plan (1) Non-pressure chronic ulcer of other part of right foot with fat layer exposed: CODE(S): L97.512 - Non-pressure chronic ulcer of other part of right foot with fat layer exposed (2) Non-pressure chronic ulcer of other part of left foot with fat layer exposed: CODE(S): L97.522 - Non-pressure chronic ulcer of other part of left foot with fat layer exposed (3) Callus of foot: CODE(S): L84 - Corns and callosities (4) Diabetes mellitus, type II: CODE(S): E11.9 - Type 2 diabetes mellitus without complications (5) Parkinsons disease: CODE(S): G20 - Parkinson's disease (6) Acute renal insufficiency: CODE(S): N28.9 - Disorder of kidney and ureter, unspecified (7) Generalized weakness: CODE(S): R53.1 - Weakness (8) Hypertension: CODE(S): I10 - Essential (primary) hypertension (9) HLD (hyperlipidemia): CODE(S): E78.5 - Hyperlipidemia, unspecified PLAN: Plan This is a 75-year-old male who presents to the wound care center for follow-up of bilateral foot callus with wounds subfirst metatarsal head right foot and callus tissue subthird metatarsal head left foot and subfifth metatarsal head right foot complicated by diabetes mellitus type 2 with peripheral polyneuropathy, Parkinson's disease, acute renal insufficiency, hypertension, generalized weakness, and hyperlipidemia. Patient seen and evaluated. subthird metatarsal head left foot demonstrates little callus tissue buildup. Site remains healed. subfifth metatarsal head right demonstrates little callus tissue buildup this was sharply debrided with a#313 blade without incident. Site remains healed. Recommend continued application of urea 42% to right foot subfifth and left foot subthird callus tissue. Debridement of subfirst metatarsal head ulcer of the right foot performed with a #313 blade as noted in the clinical panel above. Ulceration measures 0.3cm x 0.4cm x 0.1cm. No signs of infection. Offloading pad remains in place to bottom of his diabetic insert of the right foot, this is helping to decrease ulcer size. This ulceration site is nearing closure. Ulceration site dressed with Jaja with dry sterile dressing. Dressings are to be changed daily. I reminded his how the pressure sites on his feet form calluses which can contribute to wounds with continued shear forces. I discussed how calluses can also hide wounds. I discussed with the patient to continue to check his feet daily for any signs of wounds or pressure sites. I discussed with the patient that he is to remain in the diabetic shoes with inserts for proper offloading of the pressure sites and to not wear house sandals or house slippers or go barefoot. I reminded them that his wounds are caused secondarily from pressure due to his atrophic fat pad at the forefoot and plantigrade metatarsals creating direct pressure at the forefoot and pressure reduction is the fields to continued healing and prevention or recurrence of wounds. I discussed the localized signs of infection with the patient's and his today and instructed them if they notice any increased redness around the wound, purulent drainage, malodor, red streaking going up the leg, or if you experiences any nausea, vomiting, fever, chills to go to the emergency department for treatment as these are signs of a progressing infection. and patient voiced understanding of this. The following work up and care recommendations were made: Dressing: Jaja, dry sterile dressing to the subfirst metatarsal wound of the right foot Wash: Soap and water Tissue growth optimization: Jaja Offload: Diabetic shoe with inserts Vascular: Palpable pedal pulses DP and PT Edema: No edema Infection: No localized signs of infection Pain: Patient may take [id number] Tylenol extra strength for any pain or discomfort Host factors: Diabetes mellitus type 2 with peripheral polyneuropathy, proper glycemic control offloading with diabetic patient shoes discussed I answered all the patient's questions. To return to the wound healing center in 2 weeks or call sooner if the patient has any questions or concerns. Note: [employer] speech recognition pantry steward/stewardess software was used to create portions of this document. Sound-alike and misspelled words, as well as other pantry steward/stewardess errors may be contained in the documentation.
[2022-02-24 09:40] VITALS: BP 117/60; PULSE 75; TEMP 36.3; BMI 21.2
--- NOTE | 2022-02-24 16:41 | PCM.WC.PN ---
History of Present Illness Date of Service: 02/24/22 Chief Complaint: Foot wound History of Wound: 75-year-old male who was referred for evaluation relative to wounds on his feet. He has apparently been under the care of Dr. Cheung, podiatric specialist, recently, though no such medical records are available. According to the patient, and his , the patient was evaluated in Dr. Cheung's office, and the calluses on the plantar aspect of both feet were scraped. Bleeding was encountered. The patient indicates that he was then referred for further evaluation and management at the [facility]. The patient's pre-existing medical problems include diabetes mellitus, hyperlipidemia, Parkinson's disease, hypertension, debility, and generalized weakness. Subjective Subjective This 76-year-old male presents for follow-up to the wound care center with a right foot subfirst metatarsal ulceration. He also has callus formation to his subfourth metatarsal of the right foot and subthird metatarsal to the left foot with history of ulceration at the sites.? He is accompanied by his today who assists him in dressing changes with Jaja.? He remains compliant in wearing diabetic shoes with protective inserts with plantar offloading padding. He denies any constitutional symptoms today.? He has no other complaints today. Objective Data Objective Data Vital Signs: Vital Signs Temp Pulse Resp BP 97.4 F L 75 18 117/60 02/24/22 09:40 02/24/22 09:40 01/26/22 00:32 02/24/22 09:40 Weight: 67.132 kg Body Mass Index (BMI) 21.2 Physical Exam Const alert, oriented x3 and no apparent distress General Appearance: cooperative and comfortable HEENT normocephalic Eyes General Eye: normal appearance of both eyes Neck General: normal visual inspection Lymph Lymphatic: no lymphadenopathy noted and no lymphedema noted Resp normal respiratory effort Cardio regular rate and regular rhythm Extremity normal capillary refill and no calf tenderness Skin no rashes or lesions noted and no jaundice Skin Narrative: Skin is thin/atrophic. There is fat pad atrophy to the forefoot with palpable metatarsal heads 1 through 5 bilateral. Wound Narrative: Some first metatarsal ulceration measures 0.5 cm x 1.0 cm x 0.1 cm. Ulcerative base demonstrates healthy granular tissue with surrounding hyperkeratotic tissue. No signs of infection. Neuro oriented x3 and moves all extremities Debridement Note Debridement Note Wound debrided: Subfirst metatarsal head Laterality: Right Wound Grade/Stage: [place] stage I Type of Debridement: Excisional debridement Anesthesia Used: 5% Lidocaine Gel Depth: Down to and including healthy tissue and in the subcutaneous layer Percentage of wound debrided: 100 Instrument Used: - (313 blade) Tissue Removed: Fibrous, devitalized subcutaneous, biofilm, slough Severity: Fat Layer Exposed Amount of bleeding with debridement: Mild Bleeding Controlled with: Compression and gauze Patient tolerated procedure: Patient tolerated procedure well Post-Debridement Measurements and Additional Note: Post-Debridement Measurements/Treatment - Nurse 1 - General Ulcer Assessment Start: 01/27/22 09:32 Freq: Status: Active Protocol: TAMIR Activity Type Activity Date Activity User E-sign Co-sign Detail Recorded Client Recorded Date Recorded By Document 01/27/22 09:32 [id number] 01/27/22 09:36 Document 02/03/22 09:37 [id number] 02/03/22 09:39 Document 02/10/22 09:24 [id number] 02/10/22 09:25 Document 02/24/22 09:40 [id number] 02/24/22 09:43 KR 01/27/22 02/03/22 02/10/22 09:32 09:37 09:24 - Today's Visit Information Type of service Follow-up Visit Follow-up Visit Follow-up Visit (Physician/DIGITAL MEDIA ANALYST (Physician/DIGITAL MEDIA ANALYST (Physician/DIGITAL MEDIA ANALYST ) ) ) Arrival Mode Ambulatory Ambulatory Ambulatory Patient Identification Verified (Name & Yes Yes Yes ) Height and Weight Body Mass Index (BMI) 21.2 21.2 21.2 BMI Classification Normal Normal Normal Vital Signs Temperature (97.8 F-99.1 F) 96.5 F L 97.6 F L 97.8 F Temperature Source Temporal Temporal Temporal Pulse Rate (60-100) 70 75 87 Pulse Location Monitor Monitor Monitor Blood Pressure (90/60-120/80) 124/66 H 107/53 L 125/74 H Blood Pressure Mean (mm Hg) 85 71 91 Source Monitor Monitor Monitor Position Sitting Sitting Blood Pressure Location Right Arm Left Arm History Since Last Visit- (Skip if this is Patient's initial visit) Have you changed medications since your No No No last visit? Any new allergies or adverse reactions No No No Had a fall/change in ADL's that may No No No increase risk of falls Signs or symptoms of abuse and/or No No No neglect since last visit Have you been in the hospital since your No No No last visit? Has dressing in place as prescribed Yes Yes Yes Has compression in place as prescribed Yes N/A N/A Has offloadiing in place as prescribed N/A N/A N/A Experienced any changes in pain level or No No No management Left Footwear Regular Shoe Regular Shoe Regular Shoe Right Footwear Regular Shoe Regular Shoe Regular Shoe Pain Scale: 0-10 Numeric Is Patient Pain Free? Yes Yes Yes 02/24/22 09:40 WC - Today's Visit Information Type of service Follow-up Visit (Physician/DIGITAL MEDIA ANALYST ) Arrival Mode Ambulatory Patient Identification Verified (Name & Yes ) Height and Weight Body Mass Index (BMI) 21.2 BMI Classification Normal Vital Signs Temperature (97.8 F-99.1 F) 97.4 F L Temperature Source Temporal Pulse Rate (60-100) 75 Pulse Location Monitor Blood Pressure (90/60-120/80) 117/60 Blood Pressure Mean (mm Hg) 79 Source Monitor Position Sitting Blood Pressure Location Left Arm History Since Last Visit- (Skip if this is Patient's initial visit) Have you changed medications since your No last visit? Any new allergies or adverse reactions No Had a fall/change in ADL's that may No increase risk of falls Signs or symptoms of abuse and/or No neglect since last visit Have you been in the hospital since your No last visit? Has dressing in place as prescribed Yes Has compression in place as prescribed N/A Has offloadiing in place as prescribed N/A Experienced any changes in pain level or No management Left Footwear Regular Shoe Right Footwear Regular Shoe Pain Scale: 0-10 Numeric Is Patient Pain Free? Yes - Nurse 1 - General Ulcer Measurement Start: 01/27/22 09:32 Freq: Status: Active Protocol: Activity Type Activity Date Activity User E-sign Co-sign Detail Recorded Client Recorded Date Recorded By Document 01/27/22 09:32 AMILCAR [id number] 01/27/22 09:36 KR Document 02/03/22 09:37 KR [id number] 02/03/22 09:39 KR Document 02/10/22 09:24 KR [id number] 02/10/22 09:25 KR Document 02/24/22 09:40 KR [id number] 02/24/22 09:43 KR 01/27/22 02/03/22 02/10/22 09:32 09:37 09:24 Wound Center Nurse 1 #2- R 1ST MET HEAD -Combined with other wound No -Current Size (cm) - Length 0.3 0.3 0.4 -Current Size (cm) - Width 0.5 0.6 0.5 -Current Size (cm) - Depth 0.1 0.1 0.1 -Total Square Cm 0.15 0.18 0.20 -Photo Taken No -Tunneling No -Undermining/Tunneling No -Circular Undermining No -Change in Wound Grade/Stage No -Exudate Amt None Present Small None Present -Exudate Type Sanguineous Serosanguineous -Wound Margin Distinct, Distinct, Outline Outline Attached Attached -Granulation Amt None Present (0 Small (1-33%) Small (1-33%) %) -Granulation Quality [place] -Slough/Fibrin No -Necrosis Amt None Present (0 Medium (34-66%) None Present (0 %) %) -Necrotic Tissue Type Adherent Slough -Structure Exposed N/A -Texture (Kathya-wound Skin Appearance) Assessed, Assessed,Callus Assessed, Scarring Scarring -Moisture (Kathya-wound Skin Appearance) Assessed No Abnormality, No Abnormality, Assessed Assessed -Color (Kathya-wound Skin Appearance) No Abnormality, No Abnormality, No Abnormality, Assessed Assessed Assessed -Temperature (Kathya-wound Skin No Abnormality No Abnormality No Abnormality Appearance) (Pt Warm) (Pt Warm) (Pt Warm) -Tenderness on Palpation (Kathya-wound No No No Skin Appearance) -Ulcer Cleansing Rinsed/ Rinsed/ Rinsed/ Irrigated with Irrigated with Irrigated with Saline Saline Saline -Foul Odor after Cleansing No No No -Anesthetic Used 5% Lidocaine 4% Lidocaine 5% Lidocaine Gel Solution Gel 02/24/22 09:40 Wound Center Nurse 1 #2- R 1ST MET HEAD -Combined with other wound -Current Size (cm) - Length 0.5 -Current Size (cm) - Width 0.8 -Current Size (cm) - Depth 0.2 -Total Square Cm 0.40 -Photo Taken -Tunneling -Undermining/Tunneling -Circular Undermining -Change in Wound Grade/Stage -Exudate Amt Small -Exudate Type Serosanguineous -Wound Margin Distinct, Outline Attached -Granulation Amt Small (1-33%) -Granulation Quality Red -Slough/Fibrin -Necrosis Amt None Present (0 %) -Necrotic Tissue Type -Structure Exposed -Texture (Kathya-wound Skin Appearance) Assessed,Callus ,Scarring -Moisture (Kathya-wound Skin Appearance) No Abnormality, Assessed -Color (Kathya-wound Skin Appearance) No Abnormality, Assessed -Temperature (Kathya-wound Skin No Abnormality Appearance) (Pt Warm) -Tenderness on Palpation (Kathya-wound No Skin Appearance) -Ulcer Cleansing Rinsed/ Irrigated with Saline -Foul Odor after Cleansing No -Anesthetic Used 4% Lidocaine Solution WC - Nurse 2 - General Ulcer CM Notes Start: 01/27/22 09:32 Freq: Status: Active Protocol: Activity Type Activity Date Activity User E-sign Co-sign Detail Recorded Client Recorded Date Recorded By Document 01/27/22 13:38 PL [id number] 01/27/22 13:39 PL Document 02/03/22 10:04 [id number] 02/03/22 10:09 Document 02/10/22 09:52 PL [id number] 02/10/22 09:52 PL Document 02/24/22 12:25 PL [id number] 02/24/22 12:26 PL 01/27/22 02/03/22 02/10/22 13:38 10:04 09:52 Wound Center Nurse 2 #2- R 1ST MET HEAD -Time 09:58 10:05 09:38 -Correct Patient Yes Yes Yes -Correct Side, Site, Position Yes Yes Yes -Correct Procedure Yes Yes Yes -Procedure Performed Yes Yes Yes -Type of Procedure Debridement Debridement Debridement -Clinical Debridement Subcutaneous Subcutaneous Subcutaneous -Tissue Removed Subcutaneous Subcutaneous Subcutaneous -Post Debridement (cm) - Length 0.3 0.5 0.4 -Post Debridement (cm) - Width 0.5 0.6 0.5 -Post Debridement (cm) - Depth 0.1 0.2 0.1 -Total Square (Post) (cm) 0.15 0.30 0.20 -Area of Debridement (cm) - Length 0.3 0.5 0.4 -Area of Debridement (cm) - Width 0.5 0.6 0.5 -Total Square (Area) (cm) 0.15 0.30 0.20 -Tunneling No No No -Undermining/Tunneling No No No -Circular Undermining No No No -Wound/Ulcer Outcome Not Healed Not Healed Not Healed -Ulcer Cleansing Rinsed/ Rinsed/ Rinsed/ Irrigated with Irrigated with Irrigated with Saline Saline Saline -Foul Odor after Cleansing No No No -Bioengineered Tissue No No No -Bleeding Controlled with Pressure Pressure Pressure -Treatment Response Procedure Procedure Procedure Tolerated Well Tolerated Well Tolerated Well -Offloading No -Debridement - Subq, 1st 20sq cm Yes Yes Yes Pain Scale: 0-10 Numeric Is Patient Pain Free? Yes Yes Yes 02/24/22 12:25 Wound Center Nurse 2 #2- R 1ST MET HEAD -Time 10:07 -Correct Patient Yes -Correct Side, Site, Position Yes -Correct Procedure Yes -Procedure Performed Yes -Type of Procedure Debridement -Clinical Debridement Subcutaneous -Tissue Removed Subcutaneous -Post Debridement (cm) - Length 1.0 -Post Debridement (cm) - Width 1.1 -Post Debridement (cm) - Depth 0.2 -Total Square (Post) (cm) 1.10 -Area of Debridement (cm) - Length 1.0 -Area of Debridement (cm) - Width 1.1 -Total Square (Area) (cm) 1.10 -Tunneling No -Undermining/Tunneling No -Circular Undermining No -Wound/Ulcer Outcome Not Healed -Ulcer Cleansing Rinsed/ Irrigated with Saline -Foul Odor after Cleansing No -Bioengineered Tissue No -Bleeding Controlled with Pressure -Treatment Response Procedure Tolerated Well -Offloading -Debridement - Subq, 1st 20sq cm Yes Pain Scale: 0-10 Numeric Is Patient Pain Free? Yes - Nurse 3 - General Ulcer D/C NN Start: 01/27/22 09:32 Freq: Status: Active Protocol: Activity Type Activity Date Activity User E-sign Co-sign Detail Recorded Client Recorded Date Recorded By Document 01/27/22 10:35 AMILCAR [id number] 01/27/22 10:36 KR Document 01/27/22 11:02 KR [id number] 01/27/22 11:02 KR Document 02/03/22 10:22 KR [id number] 02/03/22 10:22 KR Document 02/10/22 09:58 ML [id number] 02/10/22 09:58 ML Document 02/24/22 10:25 AK [id number] 02/24/22 10:26 AK 01/27/22 01/27/22 02/03/22 10:35 11:02 10:22 Wound Care Nurse 3 #2- R 1ST MET HEAD -Ulcer Cleansing Rinsed/ Rinsed/ Rinsed/ Irrigated with Irrigated with Irrigated with Saline Saline Saline -Foul Odor after Cleansing -Negative Pressure Wound Therapy -Primary Dressing Applied Promogran Promogran Jaja Matter -Other Dressing ABD PAD -Primary Dressing Covered/Secured with Dry Gauze, Dry Gauze, Secured with Secured with Tape Tape -Promogran 1 -Promogran Jaja Matter 1 Right -Tubular Bandage Double Layer -Size of Tubigrip Used Size E -Size E ($) 2 Pain Scale: 0-10 Numeric Is Patient Pain Free? Yes Yes Yes WC - Visit Discharge Discharge Condition Stable Stable Ambulatory Status Ambulatory Ambulatory Transportation Private Auto Private Auto Accompanied by Medication Reconcilliation completed & provided to patient/care provider Clinical Summary of Care Provided 02/10/22 02/24/22 09:58 10:25 Wound Care Nurse 3 #2- R 1ST MET HEAD -Ulcer Cleansing Rinsed/ Rinsed/ Irrigated with Irrigated with Saline Saline -Foul Odor after Cleansing No -Negative Pressure Wound Therapy N/A -Primary Dressing Applied Promogran Promogran Jaja Matter Jaja Matter -Other Dressing -Primary Dressing Covered/Secured with Dry Gauze, Dry Gauze & Secured with Roll Gauze, Tape Secured with Tape -Promogran -Promogran Jaja Matter 1 1 Right -Tubular Bandage -Size of Tubigrip Used -Size E ($) Pain Scale: 0-10 Numeric Is Patient Pain Free? Yes Yes WC - Visit Discharge Discharge Condition Stable Ambulatory Status Ambulatory Transportation Private Auto Accompanied by Medication Reconcilliation completed & Yes provided to patient/care provider Clinical Summary of Care Provided Yes Assessment/Plan Assessment/Plan (1) Non-pressure chronic ulcer of other part of right foot with fat layer exposed: CODE(S): L97.512 - Non-pressure chronic ulcer of other part of right foot with fat layer exposed (2) Non-pressure chronic ulcer of other part of left foot with fat layer exposed: CODE(S): L97.522 - Non-pressure chronic ulcer of other part of left foot with fat layer exposed (3) Callus of foot: CODE(S): L84 - Corns and callosities (4) Diabetes mellitus, type II: CODE(S): E11.9 - Type 2 diabetes mellitus without complications (5) Parkinsons disease: CODE(S): G20 - Parkinson's disease (6) Acute renal insufficiency: CODE(S): N28.9 - Disorder of kidney and ureter, unspecified (7) Generalized weakness: CODE(S): R53.1 - Weakness (8) Hypertension: CODE(S): I10 - Essential (primary) hypertension (9) HLD (hyperlipidemia): CODE(S): E78.5 - Hyperlipidemia, unspecified PLAN: Plan This is a 76-year-old male who presents to the wound care center for follow-up of bilateral foot callus with wounds subfirst metatarsal head right foot and callus tissue subthird metatarsal head left foot and subfifth metatarsal head right foot complicated by diabetes mellitus type 2 with peripheral polyneuropathy, Parkinson's disease, acute renal insufficiency, hypertension, generalized weakness, and hyperlipidemia. Patient seen and evaluated. subthird metatarsal head left foot demonstrates little callus tissue buildup. Site remains healed. subfifth metatarsal head right demonstrates little callus tissue buildup this was sharply debrided with a#313 blade without incident. Site remains healed. Recommend continued application of urea 42% to right foot subfifth and left foot subthird callus tissue. Debridement of subfirst metatarsal head ulcer of the right foot performed with a #313 blade as noted in the clinical panel above. Ulceration measures 0.5cm x 1.0cm x 0.1cm. No signs of infection. Offloading pad remains in place to bottom of his diabetic insert of the right foot, this is helping to decrease ulcer size. I advised the patient to stay off of his feet as much as possible to aid in pressure reduction in healing of this ulcerative site. Ulceration site dressed with Jaja with dry sterile dressing. Dressings are to be changed daily. I reminded his how the pressure sites on his feet form calluses which can contribute to wounds with continued shear forces. I discussed how calluses can also hide wounds. I discussed with the patient to continue to check his feet daily for any signs of wounds or pressure sites. I discussed with the patient that he is to remain in the diabetic shoes with inserts for proper offloading of the pressure sites and to not wear house sandals or house slippers or go barefoot. I reminded them that his wounds are caused secondarily from pressure due to his atrophic fat pad at the forefoot and plantigrade metatarsals creating direct pressure at the forefoot and pressure reduction is the fields to continued healing and prevention or recurrence of wounds. I discussed the localized signs of infection with the patient's and his today and instructed them if they notice any increased redness around the wound, purulent drainage, malodor, red streaking going up the leg, or if you experiences any nausea, vomiting, fever, chills to go to the emergency department for treatment as these are signs of a progressing infection. and patient voiced understanding of this. The following work up and care recommendations were made: Dressing: Jaja, dry sterile dressing to the subfirst metatarsal wound of the right foot Wash: Soap and water Tissue growth optimization: Jaja Offload: Diabetic shoe with inserts Vascular: Palpable pedal pulses DP and PT Edema: No edema Infection: No localized signs of infection Pain: Patient may take stax-[id number] Tylenol extra strength for any pain or discomfort Host factors: Diabetes mellitus type 2 with peripheral polyneuropathy, proper glycemic control offloading with diabetic patient shoes discussed I answered all the patient's questions. To return to the wound healing center in 1 week or call sooner if the patient has any questions or concerns. Note: [employer] speech recognition supervisor of officials software was used to create portions of this document. Sound-alike and misspelled words, as well as other supervisor of officials errors may be contained in the documentation.
== END 2022-02-24 23:59 | disposition home or self-care (01) ==
LOC: WC 09:30
PROVIDERS: PCP Nurse Practitioner Family; Visit Provider Student in an Organized Health Care Education/Training Program
DX: E11.621 Type 2 diabetes mellitus with foot ulcer (principal); G20 Parkinson's disease; L97.512 Non-pressure chronic ulcer of other part of right foot with fat layer exposed; N28.9 Disorder of kidney and ureter, unspecified; R53.1 Weakness; R53.81 Other malaise; E78.5 Hyperlipidemia, unspecified; I10 Essential (primary) hypertension; L84 Corns and callosities
CPT/HCPCS: 11042

== ENCOUNTER 2022-03-24 09:30 | Outpatient (RCR) | payer MEDICARE, OTHER, SELFPAY ==
[2022-02-25 00:22] VITALS: BP 117/60; PULSE 75; RESP 18; TEMP 36.3; BMI 21.2
[2022-03-03 09:52] VITALS: BP 111/61; PULSE 79; TEMP 36.3; BMI 21.2
--- NOTE | 2022-03-03 10:18 | PN.PCM_ITS ---
History of Present Illness Date of Service: 03/03/22 Chief Complaint: Foot wound History of Wound: 75-year-old male who was referred for evaluation relative to wounds on his feet. He has apparently been under the care of Dr. Cheung, podiatric specialist, recently, though no such medical records are available. According to the patient, and his , the patient was evaluated in Dr. Cheung's office, and the calluses on the plantar aspect of both feet were scraped. Bleeding was encountered. The patient indicates that he was then referred for further evaluation and management at the [facility]. The patient's pre-existing medical problems include diabetes mellitus, hyperlipidemia, Parkinson's disease, hypertension, debility, and generalized weakness. Subjective Subjective This 76-year-old male presents for follow-up to the wound care center with a right foot subfirst metatarsal ulceration. He also has callus formation to his subfourth metatarsal of the right foot and subthird metatarsal to the left foot with history of ulceration at the sites.? He is accompanied by his today who assists him in dressing changes with Jaja.? He remains compliant in wearing diabetic shoes with protective inserts with plantar offloading padding. His states he has been trying to stay off his feet more to allow the wounds to heal. He denies any constitutional symptoms today.? He has no other complaints today. Objective Data Objective Data Vital Signs: Vital Signs Temp Pulse Resp BP 97.4 F L 79 18 111/61 03/03/22 09:52 03/03/22 09:52 02/25/22 00:22 03/03/22 09:52 Weight: 67.132 kg Body Mass Index (BMI) 21.2 Physical Exam Const alert, oriented x3 and no apparent distress General Appearance: cooperative and comfortable HEENT normocephalic Eyes General Eye: normal appearance of both eyes Neck General: normal visual inspection Lymph Lymphatic: no lymphadenopathy noted and no lymphedema noted Chest inspection of chest normal Resp normal respiratory effort Cardio regular rate and regular rhythm Extremity normal capillary refill, no joint enlargement, no calf tenderness and no pedal edema Peripheral Pulses: Yes posterior tibial pulses present bilateral and dorsalis pedis pulses present bilateral Skin no rashes or lesions noted, skin turgor normal and no jaundice Skin Narrative: Skin is thin/atrophic. There is fat pad atrophy with palpable metatarsal heads 1 through 5 bilaterally. General Skin Exam: Negative for erythema Wound Narrative: Some first metatarsal ulceration measures 0.4 cm x 0.8 cm x 0.1 cm.? Ulcerative base demonstrates healthy granular tissue with surrounding hyperkeratotic tissue.? No signs of infection. Neuro oriented x3 and moves all extremities Debridement Note Debridement Note Wound debrided: Subfirst metatarsal head Laterality: Right Wound Grade/Stage: [place] stage I Type of Debridement: Excisional debridement Anesthesia Used: 5% Lidocaine Gel Depth: Down to and including healthy tissue and in the subcutaneous layer Percentage of wound debrided: 100 Instrument Used: - (313 blade) Tissue Removed: Fibrous, devitalized subcutaneous, biofilm, slough Severity: Fat Layer Exposed Amount of bleeding with debridement: Mild Bleeding Controlled with: Compression and gauze Patient tolerated procedure: Patient tolerated procedure well Post-Debridement Measurements and Additional Note: Post-Debridement Measurements/Treatment WC - Nurse 1 - General Ulcer Assessment Start: 03/03/22 09:52 Freq: Status: Active Protocol: TAMIR Activity Type Activity Date Activity User E-sign Co-sign Detail Recorded Client Recorded Date Recorded By Document 03/03/22 09:52 AMILCAR [id number] 03/03/22 09:54 AMILCAR 03/03/22 09:52 - Today's Visit Information Type of service Follow-up Visit (Physician/[facility] ) Arrival Mode Ambulatory Accompanied by Patient Identification Verified (Name & Yes ) Height and Weight Body Mass Index (BMI) 21.2 BMI Classification Normal Vital Signs Temperature (97.8 F-99.1 F) 97.4 F L Temperature Source Temporal Pulse Rate (60-100) 79 Pulse Location Monitor Blood Pressure (90/60-120/80) 111/61 Blood Pressure Mean (mm Hg) 77 Source Monitor Position Sitting Blood Pressure Location Right Arm History Since Last Visit- (Skip if this is Patient's initial visit) Have you changed medications since your No last visit? Any new allergies or adverse reactions No Had a fall/change in ADL's that may No increase risk of falls Signs or symptoms of abuse and/or No neglect since last visit Have you been in the hospital since your No last visit? Has dressing in place as prescribed Yes Has compression in place as prescribed Yes Has offloadiing in place as prescribed N/A Experienced any changes in pain level or No management Left Footwear Regular Shoe Right Footwear Regular Shoe Pain Scale: 0-10 Numeric Is Patient Pain Free? Yes - Nurse 1 - General Ulcer Measurement Start: 03/03/22 09:52 Freq: Status: Active Protocol: Activity Type Activity Date Activity User E-sign Co-sign Detail Recorded Client Recorded Date Recorded By Document 03/03/22 09:52 AMILCAR [id number] 03/03/22 09:54 AMILCAR 03/03/22 09:52 Wound Center Nurse 1 #2- R 1ST MET HEAD -Current Size (cm) - Length 0.5 -Current Size (cm) - Width 0.3 -Current Size (cm) - Depth 0.1 -Total Square Cm 0.15 -Exudate Amt Small -Exudate Type Serosanguineous -Wound Margin Distinct, Outline Attached -Granulation Amt Small (1-33%) -Granulation Quality [place] -Necrosis Amt None Present (0 %) -Texture (Kathya-wound Skin Appearance) Assessed, Scarring -Moisture (Kathya-wound Skin Appearance) No Abnormality, Assessed -Color (Kathya-wound Skin Appearance) No Abnormality, Assessed -Temperature (Kathya-wound Skin No Abnormality Appearance) (Pt Warm) -Tenderness on Palpation (Kathya-wound No Skin Appearance) -Ulcer Cleansing Rinsed/ Irrigated with Saline -Foul Odor after Cleansing No -Anesthetic Used 5% Lidocaine Gel - Nurse 2 - General Ulcer CM Notes Start: 03/03/22 09:52 Freq: Status: Active Protocol: Activity Type Activity Date Activity User E-sign Co-sign Detail Recorded Client Recorded Date Recorded By Document 03/03/22 10:15 JODY [id number] 03/03/22 10:16 JODY 03/03/22 10:15 Wound Center Nurse 2 -Time 09:58 -Correct Patient Yes -Correct Side, Site, Position Yes -Correct Procedure Yes -Procedure Performed Yes -Type of Procedure Debridement -Clinical Debridement Subcutaneous -Tissue Removed Subcutaneous -Post Debridement (cm) - Length 0.5 -Post Debridement (cm) - Width 0.3 -Post Debridement (cm) - Depth 0.1 -Total Square (Post) (cm) 0.15 -Area of Debridement (cm) - Length 0.5 -Area of Debridement (cm) - Width 0.3 -Total Square (Area) (cm) 0.15 -Tunneling No -Undermining/Tunneling No -Circular Undermining No -Wound/Ulcer Outcome Not Healed -Ulcer Cleansing Rinsed/ Irrigated with Saline -Foul Odor after Cleansing No -Bioengineered Tissue Yes -Type of Bioengineered Tissue Epifix 18mm Disc -Expiration Date 11/26/26 -Product Lot Number [id number] -Percent Used 100 -Bleeding Controlled with Pressure -Treatment Response Procedure Tolerated Well -Debridement - Subq, 1st 20sq cm No -Apply Skin Sub - 1st 25 sq cm - Feet 1 -Epifix 18mm Disc 3 Pain Scale: 0-10 Numeric Is Patient Pain Free? Yes WC - Nurse 3 - General Ulcer D/C NN Start: 03/03/22 09:52 Freq: Status: Active Protocol: Activity Type Activity Date Activity User E-sign Co-sign Detail Recorded Client Recorded Date Recorded By Document 03/03/22 10:17 MARÍA [id number] 03/03/22 10:17 MARÍA 03/03/22 10:17 Wound Care Nurse 3 #2- R 1ST MET HEAD -Primary Dressing Covered/Secured with Dry Gauze & Roll Gauze, Secured with Tape Pain Scale: 0-10 Numeric Is Patient Pain Free? Yes WC - Visit Discharge Discharge Condition Stable Ambulatory Status Ambulatory Transportation Private Auto Accompanied by Medication Reconcilliation completed & Yes provided to patient/care provider Clinical Summary of Care Provided Yes Assessment/Plan Assessment/Plan (1) Non-pressure chronic ulcer of other part of right foot with fat layer exposed: CODE(S): L97.512 - Non-pressure chronic ulcer of other part of right foot with fat layer exposed (2) Non-pressure chronic ulcer of other part of left foot with fat layer exposed: CODE(S): L97.522 - Non-pressure chronic ulcer of other part of left foot with fat layer exposed (3) Callus of foot: CODE(S): L84 - Corns and callosities (4) Diabetes mellitus, type II: CODE(S): E11.9 - Type 2 diabetes mellitus without complications (5) Parkinsons disease: CODE(S): G20 - Parkinson's disease (6) Acute renal insufficiency: CODE(S): N28.9 - Disorder of kidney and ureter, unspecified (7) Generalized weakness: CODE(S): R53.1 - Weakness (8) Hypertension: CODE(S): I10 - Essential (primary) hypertension (9) HLD (hyperlipidemia): CODE(S): E78.5 - Hyperlipidemia, unspecified PLAN: Plan This is a 76-year-old male who presents to the wound care center for follow-up of bilateral foot callus with wounds subfirst metatarsal head right foot and callus tissue subthird metatarsal head left foot and subfifth metatarsal head right foot complicated by diabetes mellitus type 2 with peripheral polyneuropathy, Parkinson's disease, acute renal insufficiency, hypertension, generalized weakness, and hyperlipidemia. Patient seen and evaluated. subthird metatarsal head left foot demonstrates little callus tissue buildup.? Site remains healed. subfifth metatarsal head right demonstrates little callus tissue buildup this was sharply debrided with a#313 blade without incident.? Site remains healed. Recommend continued application of urea 42% to right foot subfifth and left foot subthird callus tissue. Debridement of subfirst metatarsal head ulcer of the right foot performed with a #313 blade as noted in the clinical panel above.? Ulceration measures 0.4cm x 0.8cm x 0.1cm. No signs of infection. Offloading pad remains in place to bottom of his diabetic insert of the right foot, this is helping to decrease ulcer size.? I advised the patient to stay off of his feet as much as possible to aid in pressure reduction in healing of this ulcerative site. I applied an epi fix graft #1 to the subfirst metatarsal Adaptic touch and anchored with Steri-St rips. I reminded his how the pressure sites on his feet form calluses which can contribute to wounds with continued shear forces. I discussed how calluses can also hide wounds. I discussed with the patient to continue to check his feet daily for any signs of wounds or pressure sites.? I discussed with the patient that he is to remain in the diabetic shoes with inserts for proper offloading of the pressure sites and to not wear house sandals or house slippers or go barefoot.? I reminded them that his wounds are caused secondarily from pressure due to his atrophic fat pad at the forefoot and plantigrade metatarsals creating direct pressure at the forefoot and pressure reduction is the fields to continued healing and prevention or recurrence of wounds. I discussed the localized signs of infection with the patient's and his today and instructed them if they notice any increased redness around the wound, purulent drainage, malodor, red streaking going up the leg, or if you experie nces any nausea, vomiting, fever, chills to go to the emergency department for treatment as these are signs of a progressing infection.? and patient voiced understanding of this. The following work up and care recommendations were made: Dressing: Epi fix, Adaptic touch, Steri-Strips and dry dressing to the subfirst metatarsal wound of the right foot Wash: Do not get wet Tissue growth optimization: Epi fix Offload: Diabetic shoe with inserts and plantar offloading padding Vascular: Palpable pedal pulses DP and PT Edema: No edema Infection: No localized signs of infection Pain: Patient may take [id number] Tylenol extra strength for any pain or discomfort Host factors: Diabetes mellitus type 2 with peripheral polyneuropathy, proper glycemic control offloading with diabetic patient shoes discussed ? I answered all the patient's questions.? To return to the wound healing center in 1 week or call sooner if the patient has any questions or concerns. Note: [employer] speech recognition field traffic investigator software was used to create portions of this document. Sound-alike and misspelled words, as well as other field traffic investigator errors may be contained in the documentation.
[2022-03-10 09:42] VITALS: BP 117/74; PULSE 84; TEMP 36.1; BMI 21.2
--- NOTE | 2022-03-10 13:07 | PCM.WC.PN ---
History of Present Illness Date of Service: 03/10/22 Chief Complaint: Foot wound History of Wound: 75-year-old male who was referred for evaluation relative to wounds on his feet. He has apparently been under the care of Dr. Cheung, podiatric specialist, recently, though no such medical records are available. According to the patient, and his , the patient was evaluated in Dr. Cheung's office, and the calluses on the plantar aspect of both feet were scraped. Bleeding was encountered. The patient indicates that he was then referred for further evaluation and management at the [facility]. The patient's pre-existing medical problems include diabetes mellitus, hyperlipidemia, Parkinson's disease, hypertension, debility, and generalized weakness. Subjective Subjective This 76-year-old male presents for follow-up to the wound care center with a right foot subfirst metatarsal ulceration. He also has callus formation to his subfourth metatarsal of the right foot and subthird metatarsal to the left foot with history of ulceration at the sites.? He is accompanied by his today.?He remains compliant in wearing diabetic shoes with protective inserts with plantar offloading padding.? His states he has been trying to stay off his feet more to allow the wounds to heal.? He denies any constitutional symptoms today.? He has no other complaints today. Objective Data Objective Data Vital Signs: Vital Signs Temp Pulse Resp BP 96.9 F L 84 18 117/74 03/10/22 09:42 03/10/22 09:42 02/25/22 00:22 03/10/22 09:42 Weight: 67.132 kg Body Mass Index (BMI) 21.2 Physical Exam Const alert, oriented x3 and no apparent distress General Appearance: cooperative and comfortable HEENT normocephalic Eyes General Eye: normal appearance of both eyes Neck General: normal visual inspection Lymph Lymphatic: no lymphadenopathy noted and no lymphedema noted Chest inspection of chest normal Resp normal respiratory effort Cardio regular rate and regular rhythm Extremity normal capillary refill, no joint enlargement, no calf tenderness and no pedal edema Skin no rashes or lesions noted, skin turgor normal and no jaundice Skin Narrative: Skin is thin/atrophic. There is fat pad atrophy with palpable metatarsal heads 1 through 5 bilaterally. General Skin Exam: Negative for erythema Wound Narrative: Some first metatarsal ulceration measures 0.4 cm x 0.8 cm x 0.1 cm.? Ulcerative base demonstrates healthy granular tissue with surrounding hyperkeratotic tissue.? No signs of infection. Neuro oriented x3 and moves all extremities Debridement Note Debridement Note Wound debrided: Subfirst metatarsal head Laterality: Right Wound Grade/Stage: Owusu stage I Type of Debridement: Excisional debridement Anesthesia Used: 5% Lidocaine Gel Depth: Down to and including healthy tissue and in the subcutaneous layer Percentage of wound debrided: 100 Instrument Used: #15 blade Tissue Removed: Fibrous, devitalized subcutaneous, biofilm, slough Severity: Fat Layer Exposed Amount of bleeding with debridement: Mild Bleeding Controlled with: Compression and gauze Patient tolerated procedure: Patient tolerated procedure well Post-Debridement Measurements and Additional Note: Post-Debridement Measurements/Treatment - Nurse 1 - General Ulcer Assessment Start: 03/03/22 09:52 Freq: Status: Active Protocol: REECE.JD Activity Type Activity Date Activity User E-sign Co-sign Detail Recorded Client Recorded Date Recorded By Document 03/03/22 09:52 AMILCAR [id number] 03/03/22 09:54 Document 03/10/22 09:42 AMILCAR [id number] 03/10/22 09:44 KR 03/03/22 03/10/22 09:52 09:42 - Today's Visit Information Type of service Follow-up Visit Follow-up Visit (Physician/EQUIPMENT HIRE MANAGER (Physician/EQUIPMENT HIRE MANAGER ) ) Arrival Mode Ambulatory Ambulatory Accompanied by Patient Identification Verified (Name & Yes Yes ) Height and Weight Body Mass Index (BMI) 21.2 21.2 BMI Classification Normal Normal Vital Signs Temperature (97.8 F-99.1 F) 97.4 F L 96.9 F L Temperature Source Temporal Temporal Pulse Rate (60-100) 79 84 Pulse Location Monitor Monitor Blood Pressure (90/60-120/80) 111/61 117/74 Blood Pressure Mean (mm Hg) 77 88 Source Monitor Monitor Position Sitting Sitting Blood Pressure Location Right Arm Right Arm History Since Last Visit- (Skip if this is Patient's initial visit) Have you changed medications since your No No last visit? Any new allergies or adverse reactions No No Had a fall/change in ADL's that may No No increase risk of falls Signs or symptoms of abuse and/or No No neglect since last visit Have you been in the hospital since your No No last visit? Has dressing in place as prescribed Yes Yes Has compression in place as prescribed Yes N/A Has offloadiing in place as prescribed N/A No Experienced any changes in pain level or No No management Left Footwear Regular Shoe Regular Shoe Right Footwear Regular Shoe Regular Shoe Pain Scale: 0-10 Numeric Is Patient Pain Free? Yes Yes WC - Nurse 1 - General Ulcer Measurement Start: 03/03/22 09:52 Freq: Status: Active Protocol: Activity Type Activity Date Activity User E-sign Co-sign Detail Recorded Client Recorded Date Recorded By Document 03/03/22 09:52 KR [id number] 03/03/22 09:54 KR Document 03/10/22 09:42 KR [id number] 03/10/22 09:44 KR 03/03/22 03/10/22 09:52 09:42 Wound Center Nurse 1 #2- R 1ST MET HEAD -Current Size (cm) - Length 0.5 0.2 -Current Size (cm) - Width 0.3 0.4 -Current Size (cm) - Depth 0.1 0.2 -Total Square Cm 0.15 0.08 -Exudate Amt Small None Present -Exudate Type Serosanguineous -Wound Margin Distinct, Distinct, Outline Outline Attached Attached -Granulation Amt Small (1-33%) Small (1-33%) -Granulation Quality [place] -Necrosis Amt None Present (0 %) -Texture (Kathya-wound Skin Appearance) Assessed, Assessed,Callus Scarring ,Scarring -Moisture (Kathya-wound Skin Appearance) No Abnormality, No Abnormality, Assessed Assessed -Color (Kathya-wound Skin Appearance) No Abnormality, No Abnormality, Assessed Assessed -Temperature (Kathya-wound Skin No Abnormality No Abnormality Appearance) (Pt Warm) (Pt Warm) -Tenderness on Palpation (Kathya-wound No No Skin Appearance) -Ulcer Cleansing Rinsed/ Rinsed/ Irrigated with Irrigated with Saline Saline -Foul Odor after Cleansing No No -Anesthetic Used 5% Lidocaine 5% Lidocaine Gel Gel WC - Nurse 2 - General Ulcer CM Notes Start: 03/03/22 09:52 Freq: Status: Active Protocol: Activity Type Activity Date Activity User E-sign Co-sign Detail Recorded Client Recorded Date Recorded By Document 03/03/22 10:15 PL [id number] 03/03/22 10:16 PL Document 03/10/22 12:40 PL [id number] 03/10/22 12:42 PL 03/03/22 03/10/22 10:15 12:40 Wound Center Nurse 2 #2- R 1ST MET HEAD -Time 09:58 10:16 -Correct Patient Yes Yes -Correct Side, Site, Position Yes Yes -Correct Procedure Yes Yes -Procedure Performed Yes Yes -Type of Procedure Debridement Debridement -Clinical Debridement Subcutaneous Subcutaneous -Tissue Removed Subcutaneous Subcutaneous -Post Debridement (cm) - Length 0.5 0.2 -Post Debridement (cm) - Width 0.3 0.4 -Post Debridement (cm) - Depth 0.1 0.2 -Total Square (Post) (cm) 0.15 0.08 -Area of Debridement (cm) - Length 0.5 0.2 -Area of Debridement (cm) - Width 0.3 0.4 -Total Square (Area) (cm) 0.15 0.08 -Tunneling No No -Undermining/Tunneling No No -Circular Undermining No No -Wound/Ulcer Outcome Not Healed Not Healed -Ulcer Cleansing Rinsed/ Rinsed/ Irrigated with Irrigated with Saline Saline -Foul Odor after Cleansing No No -Bioengineered Tissue Yes Yes -Type of Bioengineered Tissue Epifix 18mm Epifix 18mm Disc Disc -Expiration Date 11/26/26 12/26/26 -Product Lot Number [id number] -Percent Used 100 100 -Bleeding Controlled with Pressure Pressure -Treatment Response Procedure Procedure Tolerated Well Tolerated Well -Debridement - Subq, 1st 20sq cm No No -Apply Skin Sub - 1st 25 sq cm - Feet 1 1 -Epifix 18mm Disc 3 3 Pain Scale: 0-10 Numeric Is Patient Pain Free? Yes Yes WC - Nurse 3 - General Ulcer D/C NN Start: 03/03/22 09:52 Freq: Status: Active Protocol: Activity Type Activity Date Activity User E-sign Co-sign Detail Recorded Client Recorded Date Recorded By Document 03/03/22 10:17 MARÍA [id number] 03/03/22 10:17 AK Document 03/10/22 11:48 AK [id number] 07/14/22 11:48 AK 03/03/22 03/10/22 10:17 11:48 Wound Care Nurse 3 #2- R 1ST MET HEAD -Ulcer Cleansing Not Cleansed -Primary Dressing Covered/Secured with Dry Gauze & Dry Gauze & Roll Gauze, Roll Gauze, Secured with Secured with Tape Tape Pain Scale: 0-10 Numeric Is Patient Pain Free? Yes Yes WC - Visit Discharge Discharge Condition Stable Stable Ambulatory Status Ambulatory Ambulatory Transportation Private Auto Private Auto Accompanied by Medication Reconcilliation completed & Yes Yes provided to patient/care provider Clinical Summary of Care Provided Yes Yes Assessment/Plan Assessment/Plan (1) Non-pressure chronic ulcer of other part of right foot with fat layer exposed: CODE(S): L97.512 - Non-pressure chronic ulcer of other part of right foot with fat layer exposed (2) Non-pressure chronic ulcer of other part of left foot with fat layer exposed: CODE(S): L97.522 - Non-pressure chronic ulcer of other part of left foot with fat layer exposed (3) Callus of foot: CODE(S): L84 - Corns and callosities (4) Diabetes mellitus, type II: CODE(S): E11.9 - Type 2 diabetes mellitus without complications (5) Parkinsons disease: CODE(S): G20 - Parkinson's disease (6) Acute renal insufficiency: CODE(S): N28.9 - Disorder of kidney and ureter, unspecified (7) Generalized weakness: CODE(S): R53.1 - Weakness (8) Hypertension: CODE(S): I10 - Essential (primary) hypertension (9) HLD (hyperlipidemia): CODE(S): E78.5 - Hyperlipidemia, unspecified PLAN: Plan This is a 76-year-old male who presents to the wound care center for follow-up of bilateral foot callus with wounds subfirst metatarsal head right foot and callus tissue subthird metatarsal head left foot and subfifth metatarsal head right foot complicated by diabetes mellitus type 2 with peripheral polyneuropathy, Parkinson's disease, acute renal insufficiency, hypertension, generalized weakness, and hyperlipidemia. Patient seen and evaluated. subthird metatarsal head left foot demonstrates little callus tissue buildup.? Site remains healed. Some fourth metatarsal head right demonstrates little callus tissue buildup this was sharply debrided with a #15 blade without incident.? Site remains healed. I added additional plantar padding to the plantar aspect of his insert to aid in offloading of the site. Recommend continued application of urea 42% to right foot subfifth and left foot subthird callus tissue. Debridement of subfirst metatarsal head ulcer of the right foot performed with a #15 blade as noted in the clinical panel above.? Ulceration measures 0.2cm x 0.4cm x 0.1cm. No signs of infection. Offloading pad remains in place to bottom of his diabetic insert of the right foot, this is helping to decrease ulcer size.? I advised the patient to stay off of his feet as much as possible to aid in pressure reduction in healing of this ulcerative site. I applied an epi fix graft #2 to the subfirst metatarsal Adaptic touch and anchored with Steri-Strips. I reminded his how the pressure sites on his feet form calluses which can contribute to wounds with continued shear forces. I discussed how calluses can also hide wounds. I discussed with the patient to continue to check his feet daily for any signs of wounds or pressure sites.? I discussed with the patient that he is to remain in the diabetic shoes with inserts for proper offloading of the pressure sites and to not wear house sandals or house slippers or go barefoot.? I reminded them that his wounds are caused secondarily from pressure due to his atrophic fat pad at the forefoot and plantigrade metatarsals creating direct pressure at the forefoot and pressure reduction is the fields to continued healing and prevention or recurrence of wounds. I discussed the localized signs of infection with the patient's and his today and instructed them if they notice any increased redness around the wound, purulent drainage, malodor, red streaking going up the leg, or if you experiences any nausea, vomiting, fever, chills to go to the emergency department for treatment as these are signs of a progressing infection.? and patient voiced understanding of this. The following work up and care recommendations were made: Dressing: Epi fix, Adaptic touch, Steri-Strips and dry dressing to the subfirst metatarsal wound of the right foot Wash: Do not get wet Tissue growth optimization: Epi fix Offload: Diabetic shoe with inserts and plantar offloading padding Vascular: Palpable pedal pulses DP and PT Edema: No edema Infection: No localized signs of infection Pain: Patient may take [id number] Tylenol extra strength for any pain or discomfort Host factors: Diabetes mellitus type 2 with peripheral polyneuropathy, proper glycemic control offloading with diabetic patient shoes discussed ? I answered all the patient's questions.? To return to the wound healing center in 1 week or call sooner if the patient has any questions or concerns. Note: [employer] speech recognition chief airline radio operator software was used to create portions of this document. Sound-alike and misspelled words, as well as other chief airline radio operator errors may be contained in the documentation.
[2022-03-17 09:28] VITALS: BMI 21.2
[2022-03-17 09:34] VITALS: BP 107/63; PULSE 87; TEMP 36.1; BMI 21.2
--- NOTE | 2022-03-17 10:17 | PN.PCM_ITS ---
History of Present Illness Date of Service: 03/17/22 Chief Complaint: Foot wound History of Wound: 75-year-old male who was referred for evaluation relative to wounds on his feet. He has apparently been under the care of Dr. Cheung, podiatric specialist, recently, though no such medical records are available. According to the patient, and his , the patient was evaluated in Dr. Cheung's office, and the calluses on the plantar aspect of both feet were scraped. Bleeding was encountered. The patient indicates that he was then referred for further evaluation and management at the [facility]. The patient's pre-existing medical problems include diabetes mellitus, hyperlipidemia, Parkinson's disease, hypertension, debility, and generalized weakness. Subjective Subjective This 76-year-old male presents for follow-up to the wound care center with a right foot subfirst metatarsal ulceration. He also has callus formation to his subfourth metatarsal of the right foot and subthird metatarsal to the left foot with history of ulceration at the sites.? He is accompanied by his today.?He remains compliant in wearing diabetic shoes with protective inserts with plantar offloading padding.?He denies any constitutional symptoms today.? He has no other complaints today. Objective Data Objective Data Vital Signs: Vital Signs Temp Pulse Resp BP 96.9 F L 87 18 107/63 03/17/22 09:34 03/17/22 09:34 02/25/22 00:22 03/17/22 09:34 Weight: 67.132 kg Body Mass Index (BMI) 21.2 Physical Exam Const alert, oriented x3 and no apparent distress General Appearance: cooperative and comfortable HEENT normocephalic Eyes General Eye: normal appearance of both eyes Neck General: normal visual inspection Lymph Lymphatic: no lymphadenopathy noted and no lymphedema noted Chest inspection of chest normal Resp normal respiratory effort Cardio regular rate and regular rhythm Extremity normal capillary refill, no joint enlargement, no calf tenderness and no pedal edema Skin no rashes or lesions noted, skin turgor normal and no jaundice Skin Narrative: Skin is thin/atrophic. There is fat pad atrophy with palpable metatarsal heads 1 through 5 bilaterally. General Skin Exam: Negative for erythema Wound Narrative: Some first metatarsal ulceration measures 0.4 cm x 0.8 cm x 0.1 cm.? Ulcerative base demonstrates healthy granular tissue with surrounding hyperkeratotic tissue.? No signs of infection. Neuro oriented x3 and moves all extremities Debridement Note Debridement Note Wound debrided: Subfirst metatarsal head Laterality: Right Wound Grade/Stage: Owusu stage I Type of Debridement: Excisional debridement Anesthesia Used: 5% Lidocaine Gel Depth: Down to and including healthy tissue and in the subcutaneous layer Percentage of wound debrided: 100 Instrument Used: - (313 blade) Tissue Removed: Fibrous, devitalized subcutaneous, biofilm, slough Severity: Fat Layer Exposed Amount of bleeding with debridement: Mild Bleeding Controlled with: Compression and gauze Patient tolerated procedure: Patient tolerated procedure well Post-Debridement Measurements and Additional Note: Post-Debridement Measurements/Treatment - Nurse 1 - General Ulcer Assessment Start: 03/03/22 09:52 Freq: Status: Active Protocol: TAMIR Activity Type Activity Date Activity User E-sign Co-sign Detail Recorded Client Recorded Date Recorded By Document 03/03/22 09:52 [id number] 03/03/22 09:54 Document 03/10/22 09:42 [id number] 03/10/22 09:44 Document 03/17/22 09:28 [id number] 03/17/22 09:34 Document 03/17/22 09:34 KR [id number] 03/17/22 09:34 KR 03/03/22 03/10/22 03/17/22 09:52 09:42 09:28 - Today's Visit Information Type of service Follow-up Visit Follow-up Visit Follow-up Visit (Physician/DIRECTOR OF ACQUISITION MARKETING (Physician/DIRECTOR OF ACQUISITION MARKETING (Physician/DIRECTOR OF ACQUISITION MARKETING ) ) ) Arrival Mode Ambulatory Ambulatory Ambulatory Accompanied by Patient Identification Verified (Name & Yes Yes Yes ) Height and Weight Body Mass Index (BMI) 21.2 21.2 21.2 BMI Classification Normal Normal Normal Vital Signs Temperature (97.8 F-99.1 F) 97.4 F L 96.9 F L Temperature Source Temporal Temporal Temporal Pulse Rate (60-100) 79 84 Pulse Location Monitor Monitor Monitor Blood Pressure (90/60-120/80) 111/61 117/74 Blood Pressure Mean (mm Hg) 77 88 Source Monitor Monitor Monitor Position Sitting Sitting Sitting Blood Pressure Location Right Arm Right Arm Right Arm History Since Last Visit- (Skip if this is Patient's initial visit) Have you changed medications since your No No No last visit? Any new allergies or adverse reactions No No No Had a fall/change in ADL's that may No No No increase risk of falls Signs or symptoms of abuse and/or No No No neglect since last visit Have you been in the hospital since your No No No last visit? Has dressing in place as prescribed Yes Yes Yes Has compression in place as prescribed Yes N/A N/A Has offloadiing in place as prescribed N/A No N/A Experienced any changes in pain level or No No No management Left Footwear Regular Shoe Regular Shoe Regular Shoe Right Footwear Regular Shoe Regular Shoe Regular Shoe Pain Scale: 0-10 Numeric Is Patient Pain Free? Yes Yes Yes 03/17/22 09:34 WC - Today's Visit Information Type of service Arrival Mode Accompanied by Patient Identification Verified (Name & ) Height and Weight Body Mass Index (BMI) 21.2 BMI Classification Normal Vital Signs Temperature (97.8 F-99.1 F) 96.9 F L Temperature Source Oral Pulse Rate (60-100) 87 Pulse Location Monitor Blood Pressure (90/60-120/80) 107/63 Blood Pressure Mean (mm Hg) 77 Source Monitor Position Semi-Fowlers Blood Pressure Location Left Arm History Since Last Visit- (Skip if this is Patient's initial visit) Have you changed medications since your last visit? Any new allergies or adverse reactions Had a fall/change in ADL's that may increase risk of falls Signs or symptoms of abuse and/or neglect since last visit Have you been in the hospital since your last visit? Has dressing in place as prescribed Has compression in place as prescribed Has offloadiing in place as prescribed Experienced any changes in pain level or management Left Footwear Right Footwear Pain Scale: 0-10 Numeric Is Patient Pain Free? Yes - Nurse 1 - General Ulcer Measurement Start: 03/03/22 09:52 Freq: Status: Active Protocol: Activity Type Activity Date Activity User E-sign Co-sign Detail Recorded Client Recorded Date Recorded By Document 03/03/22 09:52 AMILCAR [id number] 03/03/22 09:54 KR Document 03/10/22 09:42 AMILCAR [id number] 03/10/22 09:44 KR Document 03/17/22 09:28 KR [id number] 03/17/22 09:34 KR 03/03/22 03/10/22 03/17/22 09:52 09:42 09:28 Wound Center Nurse 1 #2- R 1ST MET HEAD -Current Size (cm) - Length 0.5 0.2 0.3 -Current Size (cm) - Width 0.3 0.4 0.7 -Current Size (cm) - Depth 0.1 0.2 0.1 -Total Square Cm 0.15 0.08 0.21 -Exudate Amt Small None Present Small -Exudate Type Serosanguineous Serosanguineous -Wound Margin Distinct, Distinct, Distinct, Outline Outline Outline Attached Attached Attached -Granulation Amt Small (1-33%) Small (1-33%) Small (1-33%) -Granulation Quality [place] -Necrosis Amt None Present (0 Small (1-33%) %) -Necrotic Tissue Type Adherent Slough -Texture (Kathya-wound Skin Appearance) Assessed, Assessed,Callus Assessed,Callus Scarring ,Scarring ,Scarring -Moisture (Kathya-wound Skin Appearance) No Abnormality, No Abnormality, Assessed Assessed Assessed -Color (Kathya-wound Skin Appearance) No Abnormality, No Abnormality, No Abnormality, Assessed Assessed Assessed -Temperature (Kathya-wound Skin No Abnormality No Abnormality No Abnormality Appearance) (Pt Warm) (Pt Warm) (Pt Warm) -Tenderness on Palpation (Kathya-wound No No No Skin Appearance) -Ulcer Cleansing Rinsed/ Rinsed/ Rinsed/ Irrigated with Irrigated with Irrigated with Saline Saline Saline -Foul Odor after Cleansing No No No -Anesthetic Used 5% Lidocaine 5% Lidocaine 5% Lidocaine Gel Gel Gel WC - Nurse 2 - General Ulcer CM Notes Start: 03/03/22 09:52 Freq: Status: Active Protocol: Activity Type Activity Date Activity User E-sign Co-sign Detail Recorded Client Recorded Date Recorded By Document 03/03/22 10:15 PL [id number] 03/03/22 10:16 PL Document 03/10/22 12:40 PL [id number] 03/10/22 12:42 PL 03/03/22 03/10/22 10:15 12:40 Wound Center Nurse 2 #2- R 1ST MET HEAD -Time 09:58 10:16 -Correct Patient Yes Yes -Correct Side, Site, Position Yes Yes -Correct Procedure Yes Yes -Procedure Performed Yes Yes -Type of Procedure Debridement Debridement -Clinical Debridement Subcutaneous Subcutaneous -Tissue Removed Subcutaneous Subcutaneous -Post Debridement (cm) - Length 0.5 0.2 -Post Debridement (cm) - Width 0.3 0.4 -Post Debridement (cm) - Depth 0.1 0.2 -Total Square (Post) (cm) 0.15 0.08 -Area of Debridement (cm) - Length 0.5 0.2 -Area of Debridement (cm) - Width 0.3 0.4 -Total Square (Area) (cm) 0.15 0.08 -Tunneling No No -Undermining/Tunneling No No -Circular Undermining No No -Wound/Ulcer Outcome Not Healed Not Healed -Ulcer Cleansing Rinsed/ Rinsed/ Irrigated with Irrigated with Saline Saline -Foul Odor after Cleansing No No -Bioengineered Tissue Yes Yes -Type of Bioengineered Tissue Epifix 18mm Epifix 18mm Disc Disc -Expiration Date 11/26/26 12/26/26 -Product Lot Number [id number] -Percent Used 100 100 -Bleeding Controlled with Pressure Pressure -Treatment Response Procedure Procedure Tolerated Well Tolerated Well -Debridement - Subq, 1st 20sq cm No No -Apply Skin Sub - 1st 25 sq cm - Feet 1 1 -Epifix 18mm Disc 3 3 Pain Scale: 0-10 Numeric Is Patient Pain Free? Yes Yes WC - Nurse 3 - General Ulcer D/C NN Start: 03/03/22 09:52 Freq: Status: Active Protocol: Activity Type Activity Date Activity User E-sign Co-sign Detail Recorded Client Recorded Date Recorded By Document 03/03/22 10:17 OR [id number] 03/03/22 10:17 AK Document 03/10/22 11:48 AK [id number] 03/10/22 11:48 AK 03/03/22 03/10/22 10:17 11:48 Wound Care Nurse 3 #2- R 1ST MET HEAD -Ulcer Cleansing Not Cleansed -Primary Dressing Covered/Secured with Dry Gauze & Dry Gauze & Roll Gauze, Roll Gauze, Secured with Secured with Tape Tape Pain Scale: 0-10 Numeric Is Patient Pain Free? Yes Yes WC - Visit Discharge Discharge Condition Stable Stable Ambulatory Status Ambulatory Ambulatory Transportation Private Auto Private Auto Accompanied by Medication Reconcilliation completed & Yes Yes provided to patient/care provider Clinical Summary of Care Provided Yes Yes Assessment/Plan Assessment/Plan (1) Non-pressure chronic ulcer of other part of right foot with fat layer exposed: CODE(S): L97.512 - Non-pressure chronic ulcer of other part of right foot with fat layer exposed (2) Non-pressure chronic ulcer of other part of left foot with fat layer exposed: CODE(S): L97.522 - Non-pressure chronic ulcer of other part of left foot with fat layer exposed (3) Callus of foot: CODE(S): L84 - Corns and callosities (4) Diabetes mellitus, type II: CODE(S): E11.9 - Type 2 diabetes mellitus without complications (5) Parkinsons disease: CODE(S): G20 - Parkinson's disease (6) Acute renal insufficiency: CODE(S): N28.9 - Disorder of kidney and ureter, unspecified (7) Generalized weakness: CODE(S): R53.1 - Weakness (8) Hypertension: CODE(S): I10 - Essential (primary) hypertension (9) HLD (hyperlipidemia): CODE(S): E78.5 - Hyperlipidemia, unspecified PLAN: Plan Patient seen and evaluated. subthird metatarsal head left foot demonstrates little callus tissue buildup.? Site remains healed. Some fourth metatarsal head right demonstrates little callus tissue buildup this was sharply debrided with a #313 blade without incident.? Site remains healed. Recommend continued application of urea 42% to right foot subfifth and left foot subthird callus tissue. Debridement of subfirst metatarsal head ulcer of the right foot performed with a #313 blade as noted in the clinical panel above.? Ulceration measures 0.2cm x 0.3cm x 0.1cm. No signs of infection. Offloading pad remains in place to bottom of his diabetic insert of the right foot, this is helping to decrease ulcer size.? I advised the patient to stay off of his feet as much as possible to aid in pressure reduction in healing of this ulcerative site. I applied an epi fix graft #3 to the subfirst metatarsal Adaptic touch and anchored with Steri- Strips. His ulceration is nearing closure. I reminded his how the pressure sites on his feet form calluses which can contribute to wounds with continued shear forces. I discussed how calluses can also hide wounds. I discussed with the patient to continue to check his feet daily for any signs of wounds or pressure sites.?He is to remain in the diabetic shoes with inserts for proper offloading of the pressure sites and to not wear house sandals or house slippers or go barefoot.? I reminded them that his wounds are caused secondarily from pressure due to his atrophic fat pad at the forefoot and plantigrade metatarsals creating direct pressure at the forefoot and pressure reduction is the fields to continued healing and prevention or recurrence of wounds. I discussed the localized signs of infection with the patient's and his today and instructed them if they notice any increased redness around the wound, purulent drainage, malodor, red streaking going up the leg, or if you experiences any nausea, vomiting, fever, chills to go to the emergency depar tment for treatment as these are signs of a progressing infection.? and patient voiced understanding of this. 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 I answered all the patient's questions.? To return to the wound healing center in 1 week or call sooner if the patient has any questions or concerns. Note: [employer]oof speech recognition pediatric nurse software was used to create portions of this document. Sound-alike and misspelled words, as well as other pediatric nurse errors may be contained in the documentation.
[2022-03-24 09:34] VITALS: BP 112/69; PULSE 91; TEMP 36.4; BMI 21.2
--- NOTE | 2022-03-24 11:45 | PN.PCM_ITS ---
History of Present Illness Date of Service: 03/24/22 Chief Complaint: Foot wound History of Wound: 75-year-old male who was referred for evaluation relative to wounds on his feet. He has apparently been under the care of Dr. Cheung, podiatric specialist, recently, though no such medical records are available. According to the patient, and his , the patient was evaluated in Dr. Cheung's office, and the calluses on the plantar aspect of both feet were scraped. Bleeding was encountered. The patient indicates that he was then referred for further evaluation and management at the [facility]. The patient's pre-existing medical problems include diabetes mellitus, hyperlipidemia, Parkinson's disease, hypertension, debility, and generalized weakness. Subjective Subjective This 76-year-old male presents for follow-up to the wound care center with a right foot subfirst metatarsal ulceration. He also has callus formation to his subfourth metatarsal of the right foot and subthird metatarsal to the left foot with history of ulceration at the sites.?He is accompanied by his today.?He remains compliant in wearing diabetic shoes with protective inserts with plantar offloading padding and has been trying to stay off his feet more.?He denies any constitutional symptoms today.? He has no other complaints today. Objective Data Objective Data Vital Signs: Vital Signs Temp Pulse Resp BP 97.6 F L 91 18 112/69 03/24/22 09:34 03/24/22 09:34 02/25/22 00:22 03/24/22 09:34 Weight: 67.132 kg Body Mass Index (BMI) 21.2 Physical Exam Const alert, oriented x3 and no apparent distress General Appearance: cooperative and comfortable HEENT normocephalic Eyes General Eye: normal appearance of both eyes Neck General: normal visual inspection Lymph Lymphatic: no lymphadenopathy noted and no lymphedema noted Chest inspection of chest normal Resp normal respiratory effort Cardio regular rate and regular rhythm Extremity normal capillary refill, no joint enlargement, no calf tenderness and no pedal edema Skin no rashes or lesions noted, skin turgor normal and no jaundice Skin Narrative: Skin is thin/atrophic. There is fat pad atrophy with palpable metatarsal heads 1 through 5 bilaterally. General Skin Exam: Negative for erythema Wound Narrative: Some first metatarsal ulceration measures 0.4 cm x 0.8 cm x 0.1 cm.? Ulcerative base demonstrates healthy granular tissue with surrounding hyperkeratotic tissue.? No signs of infection. Neuro oriented x3 and moves all extremities Debridement Note Debridement Note Wound debrided: Sub first metatarsal head Laterality: Right Wound Grade/Stage: Owusu stage I Type of Debridement: Excisional debridement Anesthesia Used: 5% Lidocaine Gel Depth: in the subcutaneous layer Percentage of wound debrided: 100 Instrument Used: - (1mm curette) Tissue Removed: Fibrous, devitalized subcutaneous, biofilm, slough Severity: Fat Layer Exposed Amount of bleeding with debridement: Mild Bleeding Controlled with: Compression and gauze Patient tolerated procedure: Patient tolerated procedure well Post-Debridement Measurements and Additional Note: Post-Debridement Measurements/Treatment - Nurse 1 - General Ulcer Assessment Start: 03/03/22 09:52 Freq: Status: Active Protocol: TAMIR Activity Type Activity Date Activity User E-sign Co-sign Detail Recorded Client Recorded Date Recorded By Document 03/03/22 09:52 [id number] 03/03/22 09:54 Document 03/10/22 09:42 [id number] 03/10/22 09:44 Document 03/17/22 09:28 [id number] 03/17/22 09:34 Document 03/17/22 09:34 KR [id number] 03/17/22 09:34 Document 03/24/22 09:34 [id number] 03/24/22 09:36 KR 03/03/22 03/10/22 03/17/22 09:52 09:42 09:28 - Today's Visit Information Type of service Follow-up Visit Follow-up Visit Follow-up Visit (Physician/LIQUEFACTION PLANT OPERATOR (Physician/LIQUEFACTION PLANT OPERATOR (Physician/LIQUEFACTION PLANT OPERATOR ) ) ) Arrival Mode Ambulatory Ambulatory Ambulatory Accompanied by Patient Identification Verified (Name & Yes Yes Yes ) Height and Weight Body Mass Index (BMI) 21.2 21.2 21.2 BMI Classification Normal Normal Normal Vital Signs Temperature (97.8 F-99.1 F) 97.4 F L 96.9 F L Temperature Source Temporal Temporal Temporal Pulse Rate (60-100) 79 84 Pulse Location Monitor Monitor Monitor Blood Pressure (90/60-120/80) 111/61 117/74 Blood Pressure Mean (mm Hg) 77 88 Source Monitor Monitor Monitor Position Sitting Sitting Sitting Blood Pressure Location Right Arm Right Arm Right Arm History Since Last Visit- (Skip if this is Patient's initial visit) Have you changed medications since your No No No last visit? Any new allergies or adverse reactions No No No Had a fall/change in ADL's that may No No No increase risk of falls Signs or symptoms of abuse and/or No No No neglect since last visit Have you been in the hospital since your No No No last visit? Has dressing in place as prescribed Yes Yes Yes Has compression in place as prescribed Yes N/A N/A Has offloadiing in place as prescribed N/A No N/A Experienced any changes in pain level or No No No management Left Footwear Regular Shoe Regular Shoe Regular Shoe Right Footwear Regular Shoe Regular Shoe Regular Shoe Pain Scale: 0-10 Numeric Is Patient Pain Free? Yes Yes Yes 03/17/22 03/24/22 09:34 09:34 WC - Today's Visit Information Type of service Follow-up Visit (Physician/LIQUEFACTION PLANT OPERATOR ) Arrival Mode Ambulatory Accompanied by Patient Identification Verified (Name & Yes ) Height and Weight Body Mass Index (BMI) 21.2 21.2 BMI Classification Normal Normal Vital Signs Temperature (97.8 F-99.1 F) 96.9 F L 97.6 F L Temperature Source Oral Temporal Pulse Rate (60-100) 87 91 Pulse Location Monitor Monitor Blood Pressure (90/60-120/80) 107/63 112/69 Blood Pressure Mean (mm Hg) 77 83 Source Monitor Monitor Position Semi-Fowlers Semi-Fowlers Blood Pressure Location Left Arm Right Arm History Since Last Visit- (Skip if this is Patient's initial visit) Have you changed medications since your No last visit? Any new allergies or adverse reactions No Had a fall/change in ADL's that may No increase risk of falls Signs or symptoms of abuse and/or No neglect since last visit Have you been in the hospital since your No last visit? Has dressing in place as prescribed Yes Has compression in place as prescribed N/A Has offloadiing in place as prescribed N/A Experienced any changes in pain level or No management Left Footwear Regular Shoe Right Footwear Regular Shoe Pain Scale: 0-10 Numeric Is Patient Pain Free? Yes Yes WC - Nurse 1 - General Ulcer Measurement Start: 03/03/22 09:52 Freq: Status: Active Protocol: Activity Type Activity Date Activity User E-sign Co-sign Detail Recorded Client Recorded Date Recorded By Document 03/03/22 09:52 AMILCAR [id number] 03/03/22 09:54 KR Document 03/10/22 09:42 KR [id number] 03/10/22 09:44 KR Document 03/17/22 09:28 KR [id number] 03/17/22 09:34 KR Document 03/24/22 09:34 KR [id number] 03/24/22 09:36 KR 03/03/22 03/10/22 03/17/22 09:52 09:42 09:28 Wound Center Nurse 1 #2- R 1ST MET HEAD -Current Size (cm) - Length 0.5 0.2 0.3 -Current Size (cm) - Width 0.3 0.4 0.7 -Current Size (cm) - Depth 0.1 0.2 0.1 -Total Square Cm 0.15 0.08 0.21 -Exudate Amt Small None Present Small -Exudate Type Serosanguineous Serosanguineous -Wound Margin Distinct, Distinct, Distinct, Outline Outline Outline Attached Attached Attached -Granulation Amt Small (1-33%) Small (1-33%) Small (1-33%) -Granulation Quality Falling Spring Falling Spring Falling Spring -Necrosis Amt None Present (0 Small (1-33%) %) -Necrotic Tissue Type Adherent Slough -Texture (Kathya-wound Skin Appearance) Assessed, Assessed,Callus Assessed,Callus Scarring ,Scarring ,Scarring -Moisture (Kathya-wound Skin Appearance) No Abnormality, No Abnormality, Assessed Assessed Assessed -Color (Kathya-wound Skin Appearance) No Abnormality, No Abnormality, No Abnormality, Assessed Assessed Assessed -Temperature (Kathya-wound Skin No Abnormality No Abnormality No Abnormality Appearance) (Pt Warm) (Pt Warm) (Pt Warm) -Tenderness on Palpation (Kathya-wound No No No Skin Appearance) -Ulcer Cleansing Rinsed/ Rinsed/ Rinsed/ Irrigated with Irrigated with Irrigated with Saline Saline Saline -Foul Odor after Cleansing No No No -Anesthetic Used 5% Lidocaine 5% Lidocaine 5% Lidocaine Gel Gel Gel 03/24/22 09:34 Wound Center Nurse 1 #2- R 1ST MET HEAD -Current Size (cm) - Length 0.2 -Current Size (cm) - Width 0.3 -Current Size (cm) - Depth 0.1 -Total Square Cm 0.06 -Exudate Amt Small -Exudate Type Yellow/Green -Wound Margin Distinct, Outline Attached -Granulation Amt Small (1-33%) -Granulation Quality Falling [place] -Necrosis Amt Medium (34-66%) -Necrotic Tissue Type Adherent Slough -Texture (Kathya-wound Skin Appearance) Assessed, Scarring -Moisture (Kathya-wound Skin Appearance) No Abnormality, Assessed -Color (Kathya-wound Skin Appearance) No Abnormality, Assessed -Temperature (Kathya-wound Skin No Abnormality Appearance) (Pt Warm) -Tenderness on Palpation (Kathya-wound No Skin Appearance) -Ulcer Cleansing Soap and Water -Foul Odor after Cleansing No -Anesthetic Used 5% Lidocaine Gel WC - Nurse 2 - General Ulcer CM Notes Start: 03/03/22 09:52 Freq: Status: Active Protocol: Activity Type Activity Date Activity User E-sign Co-sign Detail Recorded Client Recorded Date Recorded By Document 03/03/22 10:15 PL [id number] 03/03/22 10:16 PL Document 03/10/22 12:40 PL [id number] 03/10/22 12:42 PL Document 03/17/22 12:53 PL [id number] 03/17/22 12:56 PL 03/03/22 03/10/22 03/17/22 10:15 12:40 12:53 Wound Center Nurse 2 #2- R 1ST MET HEAD -Time 09:58 10:16 10:01 -Correct Patient Yes Yes Yes -Correct Side, Site, Position Yes Yes Yes -Correct Procedure Yes Yes Yes -Procedure Performed Yes Yes Yes -Type of Procedure Debridement Debridement Debridement -Clinical Debridement Subcutaneous Subcutaneous Subcutaneous -Tissue Removed Subcutaneous Subcutaneous Subcutaneous -Post Debridement (cm) - Length 0.5 0.2 0.3 -Post Debridement (cm) - Width 0.3 0.4 0.7 -Post Debridement (cm) - Depth 0.1 0.2 0.1 -Total Square (Post) (cm) 0.15 0.08 0.21 -Area of Debridement (cm) - Length 0.5 0.2 0.3 -Area of Debridement (cm) - Width 0.3 0.4 0.7 -Total Square (Area) (cm) 0.15 0.08 0.21 -Tunneling No No No -Undermining/Tunneling No No No -Circular Undermining No No No -Wound/Ulcer Outcome Not Healed Not Healed Not Healed -Ulcer Cleansing Rinsed/ Rinsed/ Rinsed/ Irrigated with Irrigated with Irrigated with Saline Saline Saline -Foul Odor after Cleansing No No No -Bioengineered Tissue Yes Yes Yes -Type of Bioengineered Tissue Epifix 18mm Epifix 18mm Epifix 18mm Disc Disc Disc -Expiration Date 11/26/26 12/26/26 12/26/26 -Product Lot Number [id number] -Percent Used 100 100 100 -Bleeding Controlled with Pressure Pressure Pressure -Treatment Response Procedure Procedure Procedure Tolerated Well Tolerated Well Tolerated Well -Debridement - Subq, 1st 20sq cm No No No -Apply Skin Sub - 1st 25 sq cm - Feet 1 1 1 -Epifix 18mm Disc 3 3 3 Pain Scale: 0-10 Numeric Is Patient Pain Free? Yes Yes Yes - Nurse 3 - General Ulcer D/C NN Start: 03/03/22 09:52 Freq: Status: Active Protocol: Activity Type Activity Date Activity User E-sign Co-sign Detail Recorded Client Recorded Date Recorded By Document 03/03/22 10:17 NM [id number] 03/03/22 10:17 AK Document 03/10/22 11:48 AK [id number] 03/10/22 11:48 AK Document 03/17/22 10:22 NM [id number] 03/17/22 10:23 AK Document 03/24/22 10:29 [id number] 03/24/22 10:30 KR 03/03/22 03/10/22 03/17/22 10:17 11:48 10:22 Wound Care Nurse 3 #2- R 1ST MET HEAD -Ulcer Cleansing Not Cleansed -Primary Dressing Covered/Secured with Dry Gauze & Dry Gauze & Dry Gauze & Roll Gauze, Roll Gauze, Roll Gauze, Secured with Secured with Secured with Tape Tape Tape Pain Scale: 0-10 Numeric Is Patient Pain Free? Yes Yes Yes WC - Visit Discharge Discharge Condition Stable Stable Stable Ambulatory Status Ambulatory Ambulatory Ambulatory Transportation Private Auto Private Auto Private Auto Accompanied by Medication Reconcilliation completed & Yes Yes Yes provided to patient/care provider Clinical Summary of Care Provided Yes Yes Yes 03/24/22 10:29 Wound Care Nurse 3 #2- R 1ST MET HEAD -Ulcer Cleansing -Primary Dressing Covered/Secured with Dry Gauze,Dry Gauze & Roll Gauze,Secured with Tape Pain Scale: 0-10 Numeric Is Patient Pain Free? Yes WC - Visit Discharge Discharge Condition Stable Ambulatory Status Ambulatory Transportation Private Auto Accompanied by Medication Reconcilliation completed & provided to patient/care provider Clinical Summary of Care Provided Assessment/Plan Assessment/Plan (1) Non-pressure chronic ulcer of other part of right foot with fat layer exposed: CODE(S): L97.512 - Non-pressure chronic ulcer of other part of right foot with fat layer exposed (2) Non-pressure chronic ulcer of other part of left foot with fat layer exposed: CODE(S): L97.522 - Non-pressure chronic ulcer of other part of left foot with fat layer exposed (3) Callus of foot: CODE(S): L84 - Corns and callosities (4) Diabetes mellitus, type II: CODE(S): E11.9 - Type 2 diabetes mellitus without complications (5) Parkinsons disease: CODE(S): G20 - Parkinson's disease (6) Acute renal insufficiency: CODE(S): N28.9 - Disorder of kidney and ureter, unspecified (7) Generalized weakness: CODE(S): R53.1 - Weakness (8) Hypertension: CODE(S): I10 - Essential (primary) hypertension (9) HLD (hyperlipidemia): CODE(S): E78.5 - Hyperlipidemia, unspecified PLAN: Plan Patient seen and evaluated. subthird metatarsal head left foot demonstrates little callus tissue buildup.? Site remains healed. Some fourth metatarsal head right demonstrates little callus tissue buildup this was sharply debrided with a #313 blade without incident.? Site remains healed. Recommend continued application of urea 42% to right foot subfifth and left foot subthird callus tissue. Debridement of subfirst metatarsal head ulcer of the right foot performed with a 1 mm curette as noted in the clinical panel above.? Ulceration measures 0.2cm x 0.2cm x 0.1cm. No signs of infection. Offloading pad remains in place to bottom of his diabetic insert of the right foot, this is helping to decrease ulcer size.? I advised the patient to stay off of his feet as much as possible to aid in pressure reduction in healing of this ulcerative site. I applied an epi fix graft #4 to the subfirst metatarsal Adaptic touch and anchored with Steri- Strips. His ulceration is nearing closure. I reminded his how the pressure sites on his feet form calluses which can contribute to wounds with continued shear forces. I discussed how calluses can also hide wounds. I discussed with the patient to continue to check his feet daily for any signs of wounds or pressure sites.?He is to remain in the diabetic shoes with inserts for proper offloading of the pressure sites and to not wear house sandals or house slippers or go barefoot.? I reminded them that his wounds are caused secon darily from pressure due to his atrophic fat pad at the forefoot and plantigrade metatarsals creating direct pressure at the forefoot and pressure reduction is the fields to continued healing and prevention or recurrence of wounds. I discussed the localized signs of infection with the patient's and his today and instructed them if they notice any increased redness around the wound, purulent drainage, malodor, red streaking going up the leg, or if you experiences any nausea, vomiting, fever, chills to go to the emergency department for treatment as these are signs of a progressing infection.? and patient voiced understanding of this. 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 Atrophic fat pad at the forefoot. Parkinson's disease. ? I answered all the patient's questions.? To return to the wound healing center in 1 week or call sooner if the patient has any questions or concerns. Note: OLSET speech recognition shellfish weigher software was used to create portions of this document. Sound-alike and misspelled words, as well as other shellfish weigher errors may be contained in the documentation.
== END 2022-03-27 23:59 | disposition home or self-care (01) ==
LOC: WC 09:30
PROVIDERS: PCP Nurse Practitioner Family; Visit Provider Student in an Organized Health Care Education/Training Program
DX: E11.621 Type 2 diabetes mellitus with foot ulcer (principal); G20 Parkinson's disease; L97.512 Non-pressure chronic ulcer of other part of right foot with fat layer exposed; L97.522 Non-pressure chronic ulcer of other part of left foot with fat layer exposed; E78.5 Hyperlipidemia, unspecified; N28.9 Disorder of kidney and ureter, unspecified; R53.1 Weakness; R53.81 Other malaise; I10 Essential (primary) hypertension
CPT/HCPCS: 15275; Q4186

== ENCOUNTER 2022-04-21 10:00 | Outpatient (RCR) | payer MEDICARE, OTHER, SELFPAY ==
[2022-03-28 00:18] VITALS: BP 112/69; PULSE 91; RESP 18; TEMP 36.4; BMI 21.2
[2022-03-31 10:02] VITALS: BP 115/59; PULSE 86; TEMP 36.3; BMI 21.2
--- NOTE | 2022-03-31 13:21 | PCM.WC.PN ---
History of Present Illness Date of Service: 03/31/22 Chief Complaint: Foot wound History of Wound: 75-year-old male who was referred for evaluation relative to wounds on his feet. He has apparently been under the care of Dr. Cheung, podiatric specialist, recently, though no such medical records are available. According to the patient, and his , the patient was evaluated in Dr. Cheung's office, and the calluses on the plantar aspect of both feet were scraped. Bleeding was encountered. The patient indicates that he was then referred for further evaluation and management at the [facility]. The patient's pre-existing medical problems include diabetes mellitus, hyperlipidemia, Parkinson's disease, hypertension, debility, and generalized weakness. Subjective Subjective This 76-year-old male presents for follow-up to the wound care center with a right foot subfirst metatarsal ulceration. He also has callus formation to his subfourth metatarsal of the right foot and subthird metatarsal to the left foot with history of ulceration at the sites.?He is accompanied by his today.? His states that they recently saw a regulator operator for nail trimming and they noticed a callus on the distal tuft of the third digit left foot and upon debridement noticed a small wound. He remains compliant in wearing diabetic shoes with protective inserts with plantar offloading padding and has been trying to stay off his feet more.?He denies any constitutional symptoms today.? He has no other complaints today. Objective Data Objective Data Vital Signs: Vital Signs Temp Pulse Resp BP 97.4 F L 86 18 115/59 L 03/31/22 10:02 03/31/22 10:02 03/28/22 00:18 03/31/22 10:02 Weight: 67.132 kg Body Mass Index (BMI) 21.2 Physical Exam Const alert, oriented x3 and no apparent distress General Appearance: cooperative and comfortable HEENT normocephalic Eyes General Eye: normal appearance of both eyes Neck General: normal visual inspection Resp normal respiratory effort Cardio regular rate and regular rhythm Extremity normal capillary refill, no joint enlargement, no calf tenderness and no pedal edema Peripheral Pulses: Yes posterior tibial pulses present bilateral and dorsalis pedis pulses present bilateral Skin no rashes or lesions noted, skin turgor normal and no jaundice Wound Narrative: Right foot: Some first metatarsal ulceration measures 0.3 cm x 0.6 cm x 0.1 cm.? Ulcerative base demonstrates healthy granular tissue with surrounding hyperkeratotic tissue.? No signs of infection. Left foot: Small pressure ulceration noted to the distal tuft of the third digit measuring 0.1 cm x 0.1 cm and superficial in nature. There is no signs of infection. Ulceration is secondary to hammertoe deformity. Neuro oriented x3 and moves all extremities Debridement Note Debridement Note Wound debrided: Subfirst metatarsal Laterality: Right Wound Grade/Stage: Owusu stage I Type of Debridement: Excisional debridement Anesthesia Used: 5% Lidocaine Gel Depth: Down to and including healthy tissue and in the subcutaneous layer Percentage of wound debrided: 100 Instrument Used: - (313 blade) Tissue Removed: Fibrous, devitalized subcutaneous, biofilm, slough Severity: Fat Layer Exposed Amount of bleeding with debridement: Mild Bleeding Controlled with: Compression and gauze Patient tolerated procedure: Patient tolerated procedure well Post-Debridement Measurements and Additional Note: Post-Debridement Measurements/Treatment - Nurse 1 - General Ulcer Assessment Start: 03/31/22 10:02 Freq: Status: Active Protocol: TAMIR Activity Type Activity Date Activity User E-sign Co-sign Detail Recorded Client Recorded Date Recorded By Document 03/31/22 10:02 MARÍA [id number] 03/31/22 10:03 MARÍA 03/31/22 10:02 - Today's Visit Information Type of service Follow-up Visit (Physician/ENGINEERING PSYCHOLOGIST ) Arrival Mode Ambulatory Patient Identification Verified (Name & Yes ) Height and Weight Body Mass Index (BMI) 21.2 BMI Classification Normal Vital Signs Temperature (97.8 F-99.1 F) 97.4 F L Temperature Source Temporal Pulse Rate (60-100) 86 Pulse Location Monitor Blood Pressure (90/60-120/80) 115/59 L Blood Pressure Mean (mm Hg) 77 Source Monitor Position Sitting Blood Pressure Location Right Arm History Since Last Visit- (Skip if this is Patient's initial visit) Have you changed medications since your No last visit? Any new allergies or adverse reactions No Had a fall/change in ADL's that may No increase risk of falls Signs or symptoms of abuse and/or No neglect since last visit Have you been in the hospital since your No last visit? Has dressing in place as prescribed Yes Has compression in place as prescribed Yes Has offloadiing in place as prescribed N/A Experienced any changes in pain level or No management Left Footwear Regular Shoe Right Footwear Regular Shoe Pain Scale: 0-10 Numeric Is Patient Pain Free? Yes - Nurse 1 - General Ulcer Measurement Start: 03/31/22 10:02 Freq: Status: Active Protocol: Activity Type Activity Date Activity User E-sign Co-sign Detail Recorded Client Recorded Date Recorded By Document 03/31/22 10:02 PA [id number] 03/31/22 10:03 AK 03/31/22 10:02 Wound Center Nurse 1 #2- R 1ST MET HEAD -Current Size (cm) - Length 2 -Current Size (cm) - Width 2.4 -Current Size (cm) - Depth 0.3 -Total Square Cm 4.8 -Exudate Amt Small -Exudate Type Serosanguineous -Wound Margin Distinct, Outline Attached -Granulation Amt Medium (34-66%) -Granulation Quality [place] -Necrosis Amt Small (1-33%) -Necrotic Tissue Type Adherent Slough -Texture (Kathya-wound Skin Appearance) Assessed, Scarring -Moisture (Kathya-wound Skin Appearance) No Abnormality, Assessed -Color (Kathya-wound Skin Appearance) No Abnormality, Assessed -Temperature (Kathya-wound Skin No Abnormality Appearance) (Pt Warm) -Tenderness on Palpation (Kathya-wound No Skin Appearance) -Ulcer Cleansing Rinsed/ Irrigated with Saline -Foul Odor after Cleansing No -Anesthetic Used 5% Lidocaine Gel - Nurse 2 - General Ulcer CM Notes Start: 03/31/22 10:02 Freq: Status: Active Protocol: Activity Type Activity Date Activity User E-sign Co-sign Detail Recorded Client Recorded Date Recorded By Document 03/31/22 12:33 PL [id number] 03/31/22 12:35 PL 03/31/22 12:33 Wound Center Nurse 2 -Time 10:23 -Correct Patient Yes -Correct Side, Site, Position Yes -Correct Procedure Yes -Procedure Performed Yes -Type of Procedure Debridement -Clinical Debridement Subcutaneous -Tissue Removed Subcutaneous -Post Debridement (cm) - Length 2.0 -Post Debridement (cm) - Width 2.4 -Post Debridement (cm) - Depth 0.3 -Total Square (Post) (cm) 4.80 -Area of Debridement (cm) - Length 2.0 -Area of Debridement (cm) - Width 2.4 -Total Square (Area) (cm) 4.80 -Tunneling No -Undermining/Tunneling No -Circular Undermining No -Wound/Ulcer Outcome Not Healed -Ulcer Cleansing Rinsed/ Irrigated with Saline -Foul Odor after Cleansing No -Bioengineered Tissue Yes -Type of Bioengineered Tissue Epifix 18mm Disc -Expiration Date 12/26/26 -Product Lot Number [id number] -Percent Used 100 -Bleeding Controlled with Pressure -Treatment Response Procedure Tolerated Well -Debridement - Subq, 1st 20sq cm No -Apply Skin Sub - 1st 25 sq cm - Feet 1 -Epifix 18mm Disc 3 Pain Scale: 0-10 Numeric Is Patient Pain Free? Yes - Nurse 3 - General Ulcer D/C NN Start: 03/31/22 10:02 Freq: Status: Active Protocol: Activity Type Activity Date Activity User E-sign Co-sign Detail Recorded Client Recorded Date Recorded By Document 03/31/22 11:28 MARÍA [id number] 03/31/22 11:29 MARÍA 03/31/22 11:28 Wound Care Nurse 3 #2- R 1ST MET HEAD -Primary Dressing Covered/Secured with Dry Gauze & Roll Gauze, Secured with Tape Pain Scale: 0-10 Numeric Is Patient Pain Free? Yes - Visit Discharge Discharge Condition Stable Ambulatory Status Ambulatory Transportation Private Auto Accompanied by Medication Reconcilliation completed & Yes provided to patient/care provider Clinical Summary of Care Provided Yes Additional Wound Wound debrided: Third digit distal tuft Laterality: Left Wound Grade/Stage: Owusu stage I Type of Debridement: Excisional debridement Anesthesia Used: 5% Lidocaine Gel Depth: Down to and including healthy tissue Percentage of wound debrided: 100 Instrument Used: - (313 blade) Tissue Removed: Fibrous, devitalized subcutaneous, biofilm, slough Severity: Fat Layer Exposed Amount of bleeding with debridement: Mild Bleeding Controlled with: Compression and gauze Patient tolerated procedure: Patient tolerated procedure well Assessment/Plan Assessment/Plan (1) Non-pressure chronic ulcer of other part of right foot with fat layer exposed: CODE(S): L97.512 - Non-pressure chronic ulcer of other part of right foot with fat layer exposed (2) Non-pressure chronic ulcer of other part of left foot with fat layer exposed: CODE(S): L97.522 - Non-pressure chronic ulcer of other part of left foot with fat layer exposed (3) Parkinsons disease: CODE(S): G20 - Parkinson's disease (4) Parkinson's disease dementia: CODE(S): G20 - Parkinson's disease; F02.80 - Dementia in other diseases classified elsewhere without behavioral disturbance QUALIFIERS: Qualified Code(s): F02.80 - Dementia in other diseases classified elsewhere without behavioral disturbance (5) Diabetes mellitus, type II: CODE(S): E11.9 - Type 2 diabetes mellitus without complications (6) Generalized weakness: CODE(S): R53.1 - Weakness (7) Acute renal insufficiency: CODE(S): N28.9 - Disorder of kidney and ureter, unspecified (8) Callus of foot: CODE(S): L84 - Corns and callosities PLAN: Plan Patient seen and evaluated. New ulceration noted to the distal tuft of the third digit measuring 0.1 cm x 0.1 cm. No signs of infection. Ulceration is superficial and secondary to pressure via hammertoe deformity. I debrided callus buildup around the distal tuft of the digit and recommended antibiotic ointment and a Band-Aid. I instructed him to offload the digit with a crest pad. Some fourth metatarsal head right demonstrates little callus tissue buildup this was sharply debrided with a #313 blade without incident.? Site remains healed. Recommend continued application of urea 42% to right foot subfifth callus tissue. Debridement of subfirst metatarsal head ulcer of the right foot performed with a 313 blade as noted in the clinical panel above.? Ulceration measures 0.3cm x 0.6cm x 0.1cm. No signs of infection. Offloading pad remains in place to bottom of his diabetic insert of the right foot, this is helping to decrease ulcer size.? I advised the patient to stay off of his feet as much as possible to aid in pressure reduction in healing of this ulcerative site, however I do not believe he is doing this.? I applied an epi fix graft #5 to the subfirst metatarsal Adaptic touch and anchored with Steri-Strips. I discussed with the patient to continue to check his feet daily for any signs of wounds or pressure sites which may contribute to wound formation.?He is to remain in the diabetic shoes with inserts for proper offloading of the pressure sites and to not wear house sandals or house slippers or go barefoot.? I reminded them that his wounds are caused secondarily from pressure due to his atrophic fat pad at the forefoot and plantigrade metatarsals creating direct pressure at the forefoot and pressure reduction is the fields to continued healing and prevention or recurrence of wounds. I discussed the localized signs of infection with the patient's and his today and instructed them if they notice any increased redness around the wound, purulent drainage, malodor, red streaking going up the leg, or if you experiences any nausea, vomiting, fever, chills to go to the emergency department for treatment as these are signs of a progressing infection.? and patient voiced understanding of this. 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 Atrophic fat pad at the forefoot.? Parkinson's disease. ? I answered all the patient's questions.? To return to the wound healing center in 1 week or call sooner if the patient has any questions or concerns. Note: [employer] speech recognition miniature set designer software was used to create portions of this document. Sound-alike and misspelled words, as well as other miniature set designer errors may be contained in the documentation.
[2022-04-07 09:46] VITALS: BP 118/64; PULSE 74; TEMP 36.4; BMI 21.2
--- NOTE | 2022-04-07 11:48 | PCM.WC.PN ---
History of Present Illness Date of Service: 04/07/22 Chief Complaint: Foot wound History of Wound: 75-year-old male who was referred for evaluation relative to wounds on his feet. He has apparently been under the care of Dr. Cheung, podiatric specialist, recently, though no such medical records are available. According to the patient, and his , the patient was evaluated in Dr. Cheung's office, and the calluses on the plantar aspect of both feet were scraped. Bleeding was encountered. The patient indicates that he was then referred for further evaluation and management at the [facility]. The patient's pre-existing medical problems include diabetes mellitus, hyperlipidemia, Parkinson's disease, hypertension, debility, and generalized weakness. Subjective Subjective This 76-year-old male presents for follow-up to the wound care center with a right foot subfirst metatarsal ulceration. ?He is accompanied by his today. He remains compliant in wearing diabetic shoes with protective inserts with plantar offloading padding and has been trying to stay off his feet more.?He denies any constitutional symptoms today.? He has no other complaints today. Objective Data Objective Data Vital Signs: Vital Signs Temp Pulse Resp BP 97.6 F L 74 18 118/64 04/07/22 09:46 04/07/22 09:46 03/28/22 00:18 04/07/22 09:46 Weight: 67.132 kg Body Mass Index (BMI) 21.2 Physical Exam Const alert, oriented x3 and no apparent distress General Appearance: cooperative and comfortable HEENT normocephalic Eyes General Eye: normal appearance of both eyes Neck General: normal visual inspection Resp normal respiratory effort Cardio regular rate and regular rhythm Extremity normal capillary refill, no joint enlargement, no calf tenderness and no pedal edema Skin no rashes or lesions noted, skin turgor normal and no jaundice Wound Narrative: Right foot: Some first metatarsal ulceration measures 0.3 cm x 0.6 cm x 0.1 cm.? Ulcerative base demonstrates healthy granular tissue with surrounding hyperkeratotic tissue.? No signs of infection. Left foot: Small pressure ulceration noted to the distal tuft of the third digit measuring 0.1 cm x 0.1 cm and superficial in nature. There is no signs of infection. Ulceration is secondary to hammertoe deformity. Neuro oriented x3 and moves all extremities Debridement Note Debridement Note Wound debrided: Subfirst metatarsal head Laterality: Right Wound Grade/Stage: Owusu stage I Type of Debridement: Excisional debridement Anesthesia Used: 5% Lidocaine Gel Depth: Down to and including healthy tissue and in the subcutaneous layer Percentage of wound debrided: 100 Instrument Used: #15 blade Tissue Removed: Fibrous, devitalized subcutaneous, biofilm, slough Severity: Fat Layer Exposed Amount of bleeding with debridement: Mild Bleeding Controlled with: Compression and gauze Patient tolerated procedure: Patient tolerated procedure well Post-Debridement Measurements and Additional Note: Post-Debridement Measurements/Treatment - Nurse 1 - General Ulcer Assessment Start: 03/31/22 10:02 Freq: Status: Active Protocol: TAMIR Activity Type Activity Date Activity User E-sign Co-sign Detail Recorded Client Recorded Date Recorded By Document 03/31/22 10:02 MARÍA [id number] 03/31/22 10:03 AK Document 04/07/22 09:46 KR [id number] 04/07/22 09:50 KR 03/31/22 04/07/22 10:02 09:46 - Today's Visit Information Type of service Follow-up Visit Follow-up Visit (Physician/WATERPROOFING MIXER (Physician/WATERPROOFING MIXER ) ) Arrival Mode Ambulatory Ambulatory Patient Identification Verified (Name & Yes Yes ) Height and Weight Body Mass Index (BMI) 21.2 21.2 BMI Classification Normal Normal Vital Signs Temperature (97.8 F-99.1 F) 97.4 F L 97.6 F L Temperature Source Temporal Temporal Pulse Rate (60-100) 86 74 Pulse Location Monitor Monitor Blood Pressure (90/60-120/80) 115/59 L 118/64 Blood Pressure Mean (mm Hg) 77 82 Source Monitor Monitor Position Sitting Semi-Fowlers Blood Pressure Location Right Arm Right Arm History Since Last Visit- (Skip if this is Patient's initial visit) Have you changed medications since your No No last visit? Any new allergies or adverse reactions No No Had a fall/change in ADL's that may No No increase risk of falls Signs or symptoms of abuse and/or No No neglect since last visit Have you been in the hospital since your No No last visit? Has dressing in place as prescribed Yes Yes Has compression in place as prescribed Yes N/A Has offloadiing in place as prescribed N/A N/A Experienced any changes in pain level or No No management Left Footwear Regular Shoe Regular Shoe Right Footwear Regular Shoe Regular Shoe Pain Scale: 0-10 Numeric Is Patient Pain Free? Yes Yes WC - Nurse 1 - General Ulcer Measurement Start: 03/31/22 10:02 Freq: Status: Active Protocol: Activity Type Activity Date Activity User E-sign Co-sign Detail Recorded Client Recorded Date Recorded By Document 03/31/22 10:02 AK [id number] 03/31/22 10:03 AK Document 04/07/22 09:46 KR [id number] 04/07/22 09:50 KR 03/31/22 04/07/22 10:02 09:46 Wound Center Nurse 1 #4 left 3rd toe -Current Size (cm) - Length 0.2 -Current Size (cm) - Width 0.5 -Current Size (cm) - Depth 0.1 -Total Square Cm 0.10 -Exudate Amt Small -Exudate Type Serosanguineous -Wound Margin Distinct, Outline Attached -Granulation Amt Small (1-33%) -Granulation Quality [place] -Necrosis Amt None Present (0 %) -Texture (Kathya-wound Skin Appearance) Assessed, Scarring -Moisture (Kathya-wound Skin Appearance) Assessed,Dry/ Scaly -Color (Kathya-wound Skin Appearance) No Abnormality, Assessed -Temperature (Kathya-wound Skin No Abnormality Appearance) (Pt Warm) -Tenderness on Palpation (Kathya-wound No Skin Appearance) -Ulcer Cleansing Rinsed/ Irrigated with Saline -Foul Odor after Cleansing No -Anesthetic Used 5% Lidocaine Gel #2- R 1ST MET HEAD -Current Size (cm) - Length 2 0.3 -Current Size (cm) - Width 2.4 0.4 -Current Size (cm) - Depth 0.3 0.1 -Total Square Cm 4.8 0.12 -Exudate Amt Small Small -Exudate Type Serosanguineous Serosanguineous -Wound Margin Distinct, Distinct, Outline Outline Attached Attached -Granulation Amt Medium (34-66%) Medium (34-66%) -Granulation Quality [place] -Necrosis Amt Small (1-33%) None Present (0 %) -Necrotic Tissue Type Adherent Slough -Texture (Kathya-wound Skin Appearance) Assessed, Scarring Scarring -Moisture (Kathya-wound Skin Appearance) No Abnormality, Assessed -Color (Kathya-wound Skin Appearance) No Abnormality, No Abnormality, Assessed Assessed -Temperature (Kathya-wound Skin No Abnormality No Abnormality Appearance) (Pt Warm) (Pt Warm) -Tenderness on Palpation (Kathya-wound No No Skin Appearance) -Ulcer Cleansing Rinsed/ Rinsed/ Irrigated with Irrigated with Saline Saline -Foul Odor after Cleansing No No -Anesthetic Used 5% Lidocaine 5% Lidocaine Gel Gel WC - Nurse 2 - General Ulcer CM Notes Start: 03/31/22 10:02 Freq: Status: Active Protocol: Activity Type Activity Date Activity User E-sign Co-sign Detail Recorded Client Recorded Date Recorded By Document 03/31/22 12:33 PL [id number] 03/31/22 12:35 PL Document 04/07/22 11:39 PL [id number] 04/07/22 11:42 PL 03/31/22 04/07/22 12:33 11:39 Wound Center Nurse 2 #4 left 3rd toe -Time 10:30 -Correct Patient Yes -Correct Side, Site, Position Yes -Correct Procedure Yes -Procedure Performed Yes -Type of Procedure Debridement -Clinical Debridement Subcutaneous -Tissue Removed Subcutaneous -Post Debridement (cm) - Length 0.2 -Post Debridement (cm) - Width 0.5 -Post Debridement (cm) - Depth 0.1 -Total Square (Post) (cm) 0.10 -Area of Debridement (cm) - Length 0.2 -Area of Debridement (cm) - Width 0.5 -Total Square (Area) (cm) 0.10 -Tunneling No -Undermining/Tunneling No -Circular Undermining No -Wound/Ulcer Outcome Not Healed -Ulcer Cleansing Rinsed/ Irrigated with Saline -Foul Odor after Cleansing No -Bioengineered Tissue No -Bleeding Controlled with Pressure -Treatment Response Procedure Tolerated Well -Debridement - Subq, 1st 20sq cm Yes #2- R 1ST MET HEAD -Time 10:23 10:30 -Correct Patient Yes Yes -Correct Side, Site, Position Yes Yes -Correct Procedure Yes Yes -Procedure Performed Yes Yes -Type of Procedure Debridement Debridement -Clinical Debridement Subcutaneous Subcutaneous -Tissue Removed Subcutaneous Subcutaneous -Post Debridement (cm) - Length 2.0 0.3 -Post Debridement (cm) - Width 2.4 0.4 -Post Debridement (cm) - Depth 0.3 0.1 -Total Square (Post) (cm) 4.80 0.12 -Area of Debridement (cm) - Length 2.0 0.3 -Area of Debridement (cm) - Width 2.4 0.4 -Total Square (Area) (cm) 4.80 0.12 -Tunneling No No -Undermining/Tunneling No No -Circular Undermining No No -Wound/Ulcer Outcome Not Healed Not Healed -Ulcer Cleansing Rinsed/ Soap and Water Irrigated with Saline -Foul Odor after Cleansing No No -Bioengineered Tissue Yes Yes -Type of Bioengineered Tissue Epifix 18mm Epifix 18mm Disc Disc -Expiration Date 12/26/26 01/26/27 -Product Lot Number [id number] -Percent Used 100 100 -Bleeding Controlled with Pressure Pressure -Treatment Response Procedure Procedure Tolerated Well Tolerated Well -Debridement - Subq, 1st 20sq cm No No -Apply Skin Sub - 1st 25 sq cm - Feet 1 1 -Epifix 18mm Disc 3 3 Pain Scale: 0-10 Numeric Is Patient Pain Free? Yes Yes - Nurse 3 - General Ulcer D/C NN Start: 03/31/22 10:02 Freq: Status: Active Protocol: Activity Type Activity Date Activity User E-sign Co-sign Detail Recorded Client Recorded Date Recorded By Document 03/31/22 11:28 MI [id number] 03/31/22 11:29 MI Document 04/07/22 10:50 [id number] 04/07/22 10:50 03/31/22 04/07/22 11:28 10:50 Wound Care Nurse 3 #2- R 1ST MET HEAD -Ulcer Cleansing Rinsed/ Irrigated with Saline -Foul Odor after Cleansing No -Primary Dressing Covered/Secured with Dry Gauze & Dry Gauze & Roll Gauze, Roll Gauze, Secured with Secured with Tape Tape Pain Scale: 0-10 Numeric Is Patient Pain Free? Yes Yes - Visit Discharge Discharge Condition Stable Stable Ambulatory Status Ambulatory Ambulatory Transportation Private Auto Private Auto Accompanied by Medication Reconcilliation completed & Yes Yes provided to patient/care provider Clinical Summary of Care Provided Yes Yes Assessment/Plan Assessment/Plan (1) Non-pressure chronic ulcer of other part of right foot with fat layer exposed: CODE(S): L97.512 - Non-pressure chronic ulcer of other part of right foot with fat layer exposed (2) Non-pressure chronic ulcer of other part of left foot with fat layer exposed: CODE(S): L97.522 - Non-pressure chronic ulcer of other part of left foot with fat layer exposed (3) Parkinsons disease: CODE(S): G20 - Parkinson's disease (4) Parkinson's disease dementia: CODE(S): G20 - Parkinson's disease; F02.80 - Dementia in other diseases classified elsewhere without behavioral disturbance QUALIFIERS: Qualified Code(s): F02.80 - Dementia in other diseases classified elsewhere without behavioral disturbance (5) Diabetes mellitus, type II: CODE(S): E11.9 - Type 2 diabetes mellitus without complications (6) Generalized weakness: CODE(S): R53.1 - Weakness (7) Acute renal insufficiency: CODE(S): N28.9 - Disorder of kidney and ureter, unspecified (8) Callus of foot: CODE(S): L84 - Corns and callosities PLAN: Plan Patient seen and evaluated. Ulceration noted to the distal tuft has healed with some callus tissue covering. No signs of infection. Ulceration is secondary to pressure via hammertoe deformity. I debrided callus buildup around the distal tuft of the digit continued offloading of the digit with a crest pad. Sub- fourth metatarsal head right demonstrates little callus tissue buildup this was sharply debrided with a #15 blade without incident.? Site remains healed. Recommend continued application of urea 42% to right foot subfifth callus tissue. Debridement of subfirst metatarsal head ulcer of the right foot performed with a #15 blade as noted in the clinical panel above.? Ulceration measures 0.2cm x 0.4cm x 0.1cm. No signs of infection. Offloading pad remains in place to bottom of his diabetic insert of the right foot, this is helping to decrease ulcer size.? I advised the patient to stay off of his feet as much as possible to aid in pressure reduction in healing of this ulcerative site, however I do not believe he is doing this consistently.? I applied an epi fix graft #6 to the subfirst metatarsal Adaptic touch and anchored with Steri-Strips. I discussed with the patient to continue to check his feet daily for any signs of wounds or pressure sites which may contribute to wound formation.?He is to remain in the diabetic shoes with inserts for proper offloading of the pressure sites and to not wear house sandals or house slippers or go barefoot.? I reminded them that his wounds are caused secondarily from pressure due to his atrophic fat pad at the forefoot and plantigrade metatarsals creating direct pressure at the forefoot and pressure reduction is the fields to continued healing and prevention or recurrence of wounds. I discussed the localized signs of infection with the patient's and his today and instructed them if they notice any increased redness around the wound, purulent drainage, malodor, red streaking going up the leg, or if you experiences any nausea, vomiting, fever, chills to go to the emergency department for treatment as these are signs of a progressing infection.? and patient voiced understanding of this. 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 Atrophic fat pad at the forefoot.? Parkinson's disease. ? I answered all the patient's questions.? To return to the wound healing center in 1 week or call sooner if the patient has any questions or concerns. Note: [employer] speech recognition body specialist software was used to create portions of this document. Sound-alike and misspelled words, as well as other body specialist errors may be contained in the documentation.
[2022-04-14 10:05] VITALS: BP 114/61; PULSE 79; TEMP 36.4; BMI 21.2
--- NOTE | 2022-04-14 14:31 | PN.PCM_ITS ---
History of Present Illness Date of Service: 04/14/22 Chief Complaint: Foot wound History of Wound: 75-year-old male who was referred for evaluation relative to wounds on his feet. He has apparently been under the care of Dr. Cheung, podiatric specialist, recently, though no such medical records are available. According to the patient, and his , the patient was evaluated in Dr. Cheung's office, and the calluses on the plantar aspect of both feet were scraped. Bleeding was encountered. The patient indicates that he was then referred for further evaluation and management at the [facility]. The patient's pre-existing medical problems include diabetes mellitus, hyperlipidemia, Parkinson's disease, hypertension, debility, and generalized weakness. Subjective Subjective This 76-year-old male presents for follow-up to the wound care center with a right foot subfirst metatarsal ulceration. ?He is accompanied by his today. He remains compliant in wearing diabetic shoes with protective inserts with plantar offloading padding. He admits to trying to stay off his feet more with legs elevated.?He denies any constitutional symptoms today.? He has no other complaints today. Objective Data Objective Data Vital Signs: Vital Signs Temp Pulse Resp BP 97.5 F L 79 18 114/61 04/14/22 10:05 04/14/22 10:05 03/28/22 00:18 04/14/22 10:05 Weight: 67.132 kg Body Mass Index (BMI) 21.2 Physical Exam Const alert, oriented x3 and no apparent distress General Appearance: cooperative and comfortable HEENT normocephalic Eyes General Eye: normal appearance of both eyes Neck General: normal visual inspection Resp normal respiratory effort Cardio regular rate and regular rhythm Extremity normal capillary refill, no joint enlargement, no calf tenderness and no pedal edema Skin no rashes or lesions noted, skin turgor normal and no jaundice Wound Narrative: Right foot: Some first metatarsal ulceration measures 0.1 cm x 0.1 cm x 0.1 cm.? Ulcerative base demonstrates healthy granular tissue with surrounding hy perkeratotic tissue.? No signs of infection. Left foot: Hyperkeratotic tissue distal tuft of 3rd digit secondary to hammertoe deformity. Site is healed and offloaded with padding. Neuro oriented x3 and moves all extremities Debridement Note Debridement Note Wound debrided: Subfirst metatarsal head Laterality: Left Wound Grade/Stage: [place] stage I Type of Debridement: Excisional debridement Anesthesia Used: 5% Lidocaine Gel Depth: Down to and including healthy tissue and in the subcutaneous layer Percentage of wound debrided: 100 Instrument Used: - (313 blade) Tissue Removed: Fibrous, devitalized subcutaneous, biofilm, slough Severity: Fat Layer Exposed Amount of bleeding with debridement: Mild Bleeding Controlled with: Compression and gauze Patient tolerated procedure: Patient tolerated procedure well Post-Debridement Measurements and Additional Note: Post-Debridement Measurements/Treatment - Nurse 1 - General Ulcer Assessment Start: 03/31/22 10:02 Freq: Status: Active Protocol: TAMIR Activity Type Activity Date Activity User E-sign Co-sign Detail Recorded Client Recorded Date Recorded By Document 03/31/22 10:02 MARÍA [id number] 03/31/22 10:03 AK Document 04/07/22 09:46 KR [id number] 04/07/22 09:50 KR Document 04/14/22 10:05 KR [id number] 04/14/22 10:06 KR 03/31/22 04/07/22 04/14/22 10:02 09:46 10:05 - Today's Visit Information Type of service Follow-up Visit Follow-up Visit Follow-up Visit (Physician/LAND ECONOMIST (Physician/LAND ECONOMIST (Physician/LAND ECONOMIST ) ) ) Arrival Mode Ambulatory Ambulatory Ambulatory Patient Identification Verified (Name & Yes Yes Yes ) Height and Weight Body Mass Index (BMI) 21.2 21.2 21.2 BMI Classification Normal Normal Normal Vital Signs Temperature (97.8 F-99.1 F) 97.4 F L 97.6 F L 97.5 F L Temperature Source Temporal Temporal Temporal Pulse Rate (60-100) 86 74 79 Pulse Location Monitor Monitor Monitor Blood Pressure (90/60-120/80) 115/59 L 118/64 114/61 Blood Pressure Mean (mm Hg) 77 82 78 Source Monitor Monitor Monitor Position Sitting Semi-Fowlers Sitting Blood Pressure Location Right Arm Right Arm Right Arm History Since Last Visit- (Skip if this is Patient's initial visit) Have you changed medications since your No No No last visit? Any new allergies or adverse reactions No No No Had a fall/change in ADL's that may No No No increase risk of falls Signs or symptoms of abuse and/or No No No neglect since last visit Have you been in the hospital since your No No No last visit? Has dressing in place as prescribed Yes Yes Yes Has compression in place as prescribed Yes N/A N/A Has offloadiing in place as prescribed N/A N/A N/A Experienced any changes in pain level or No No No management Left Footwear Regular Shoe Regular Shoe Regular Shoe Right Footwear Regular Shoe Regular Shoe Regular Shoe Pain Scale: 0-10 Numeric Is Patient Pain Free? Yes Yes Yes WC - Nurse 1 - General Ulcer Measurement Start: 03/31/22 10:02 Freq: Status: Active Protocol: Activity Type Activity Date Activity User E-sign Co-sign Detail Recorded Client Recorded Date Recorded By Document 03/31/22 10:02 AK [id number] 03/31/22 10:03 AK Document 04/07/22 09:46 KR [id number] 04/07/22 09:50 KR Document 04/14/22 10:05 KR [id number] 04/14/22 10:06 KR 03/31/22 04/07/22 04/14/22 10:02 09:46 10:05 Wound Center Nurse 1 #4 left 3rd toe -Current Size (cm) - Length 0.2 0.1 -Current Size (cm) - Width 0.5 0.1 -Current Size (cm) - Depth 0.1 0.1 -Total Square Cm 0.10 0.01 -Exudate Amt Small -Exudate Type Serosanguineous -Wound Margin Distinct, Outline Attached -Granulation Amt Small (1-33%) -Granulation Quality [place] -Necrosis Amt None Present (0 %) -Texture (Kathya-wound Skin Appearance) Assessed, Scarring -Moisture (Kathya-wound Skin Appearance) Assessed,Dry/ Scaly -Color (Kathya-wound Skin Appearance) No Abnormality, Assessed -Temperature (Kathya-wound Skin No Abnormality Appearance) (Pt Warm) -Tenderness on Palpation (Kathya-wound No Skin Appearance) -Ulcer Cleansing Rinsed/ Irrigated with Saline -Foul Odor after Cleansing No -Anesthetic Used 5% Lidocaine Gel #2- R 1ST MET HEAD -Current Size (cm) - Length 2 0.3 0.3 -Current Size (cm) - Width 2.4 0.4 0.4 -Current Size (cm) - Depth 0.3 0.1 0.1 -Total Square Cm 4.8 0.12 0.12 -Exudate Amt Small Small Small -Exudate Type Serosanguineous Serosanguineous Serosanguineous -Wound Margin Distinct, Distinct, Distinct, Outline Outline Outline Attached Attached Attached -Granulation Amt Medium (34-66%) Medium (34-66%) Small (1-33%) -Granulation Quality [place] -Necrosis Amt Small (1-33%) None Present (0 None Present (0 %) %) -Necrotic Tissue Type Adherent Slough -Texture (Kathya-wound Skin Appearance) Assessed, Scarring Assessed,Rash Scarring -Moisture (Kathya-wound Skin Appearance) No Abnormality, No Abnormality, Assessed Assessed -Color (Kathya-wound Skin Appearance) No Abnormality, No Abnormality, No Abnormality, Assessed Assessed Assessed -Temperature (Kathya-wound Skin No Abnormality No Abnormality No Abnormality Appearance) (Pt Warm) (Pt Warm) (Pt Warm) -Tenderness on Palpation (Kathya-wound No No No Skin Appearance) -Ulcer Cleansing Rinsed/ Rinsed/ Rinsed/ Irrigated with Irrigated with Irrigated with Saline Saline Saline -Foul Odor after Cleansing No No No -Anesthetic Used 5% Lidocaine 5% Lidocaine 5% Lidocaine Gel Gel Gel WC - Nurse 2 - General Ulcer CM Notes Start: 03/31/22 10:02 Freq: Status: Active Protocol: Activity Type Activity Date Activity User E-sign Co-sign Detail Recorded Client Recorded Date Recorded By Document 03/31/22 12:33 PL [id number] 03/31/22 12:35 PL Document 04/07/22 11:39 PL [id number] 04/07/22 11:42 PL Document 04/14/22 12:41 PL [id number] 04/14/22 12:43 PL 03/31/22 04/07/22 04/14/22 12:33 11:39 12:41 Wound Center Nurse 2 #4 left 3rd toe -Time 10:30 -Correct Patient Yes -Correct Side, Site, Position Yes -Correct Procedure Yes -Procedure Performed Yes No -Type of Procedure Debridement -Clinical Debridement Subcutaneous -Tissue Removed Subcutaneous -Post Debridement (cm) - Length 0.2 -Post Debridement (cm) - Width 0.5 -Post Debridement (cm) - Depth 0.1 -Total Square (Post) (cm) 0.10 -Area of Debridement (cm) - Length 0.2 -Area of Debridement (cm) - Width 0.5 -Total Square (Area) (cm) 0.10 -Tunneling No -Undermining/Tunneling No -Circular Undermining No -Wound/Ulcer Outcome Not Healed Healed- Epithelialized -Ulcer Cleansing Rinsed/ Irrigated with Saline -Foul Odor after Cleansing No -Bioengineered Tissue No -Bleeding Controlled with Pressure -Treatment Response Procedure Tolerated Well -Debridement - Subq, 1st 20sq cm Yes #2- R 1ST MET HEAD -Time 10:23 10:30 10:24 -Correct Patient Yes Yes Yes -Correct Side, Site, Position Yes Yes Yes -Correct Procedure Yes Yes Yes -Procedure Performed Yes Yes Yes -Type of Procedure Debridement Debridement Debridement -Clinical Debridement Subcutaneous Subcutaneous Subcutaneous -Tissue Removed Subcutaneous Subcutaneous Subcutaneous -Post Debridement (cm) - Length 2.0 0.3 0.3 -Post Debridement (cm) - Width 2.4 0.4 0.4 -Post Debridement (cm) - Depth 0.3 0.1 0.1 -Total Square (Post) (cm) 4.80 0.12 0.12 -Area of Debridement (cm) - Length 2.0 0.3 0.3 -Area of Debridement (cm) - Width 2.4 0.4 0.4 -Total Square (Area) (cm) 4.80 0.12 0.12 -Tunneling No No No -Undermining/Tunneling No No No -Circular Undermining No No No -Wound/Ulcer Outcome Not Healed Not Healed Not Healed -Ulcer Cleansing Rinsed/ Soap and Water Rinsed/ Irrigated with Irrigated with Saline Saline -Foul Odor after Cleansing No No No -Bioengineered Tissue Yes Yes Yes -Type of Bioengineered Tissue Epifix 18mm Epifix 18mm Epifix 18mm Disc Disc Disc -Expiration Date 12/26/26 01/26/27 01/26/27 -Product Lot Number [id number] -Percent Used 100 100 100 -Lot number of Saline Used [id number] -Bleeding Controlled with Pressure Pressure Pressure -Treatment Response Procedure Procedure Procedure Tolerated Well Tolerated Well Tolerated Well -Debridement - Subq, 1st 20sq cm No No No -Apply Skin Sub - 1st 25 sq cm - Feet 1 1 1 -Epifix 18mm Disc 3 3 3 Pain Scale: 0-10 Numeric Is Patient Pain Free? Yes Yes Yes - Nurse 3 - General Ulcer D/C NN Start: 03/31/22 10:02 Freq: Status: Active Protocol: Activity Type Activity Date Activity User E-sign Co-sign Detail Recorded Client Recorded Date Recorded By Document 03/31/22 11:28 IA [id number] 03/31/22 11:29 AK Document 04/07/22 10:50 [id number] 04/07/22 10:50 Document 04/14/22 12:21 IA [id number] 04/14/22 12:22 AK 03/31/22 04/07/22 04/14/22 11:28 10:50 12:21 Wound Care Nurse 3 #4 left 3rd toe -Primary Dressing Covered/Secured with Dry Gauze, Secured with Tape #2- R 1ST MET HEAD -Ulcer Cleansing Rinsed/ Irrigated with Saline -Foul Odor after Cleansing No -Primary Dressing Covered/Secured with Dry Gauze & Dry Gauze & Roll Gauze, Roll Gauze, Secured with Secured with Tape Tape Pain Scale: 0-10 Numeric Is Patient Pain Free? Yes Yes Yes - Visit Discharge Discharge Condition Stable Stable Stable Ambulatory Status Ambulatory Ambulatory Ambulatory Transportation Private Auto Private Auto Private Auto Accompanied by Medication Reconcilliation completed & Yes Yes Yes provided to patient/care provider Clinical Summary of Care Provided Yes Yes Yes Assessment/Plan Assessment/Plan (1) Non-pressure chronic ulcer of other part of right foot with fat layer exposed: CODE(S): L97.512 - Non-pressure chronic ulcer of other part of right foot with fat layer exposed (2) Non-pressure chronic ulcer of other part of left foot with fat layer exposed: CODE(S): L97.522 - Non-pressure chronic ulcer of other part of left foot with fat layer exposed (3) Parkinsons disease: CODE(S): G20 - Parkinson's disease (4) Parkinson's disease dementia: CODE(S): G20 - Parkinson's disease; F02.80 - Dementia in other diseases c lassified elsewhere without behavioral disturbance QUALIFIERS: Qualified Code(s): F02.80 - Dementia in other diseases classified elsewhere without behavioral disturbance (5) Diabetes mellitus, type II: CODE(S): E11.9 - Type 2 diabetes mellitus without complications (6) Generalized weakness: CODE(S): R53.1 - Weakness (7) Acute renal insufficiency: CODE(S): N28.9 - Disorder of kidney and ureter, unspecified (8) Callus of foot: CODE(S): L84 - Corns and callosities PLAN: Plan Patient seen and evaluated. Ulceration distal tuft third digit remains healed with some hyperkeratotic tissue. No signs of infection. Ulceration caused secondary to pressure via hammertoe deformity. I debrided callus buildup around the distal tuft of the digit continued offloading of the digit with a crest pad. Sub- fourth metatarsal head right demonstrates little callus tissue buildup this was sharply debrided with a 313 blade without incident.? Site remains healed. Recommend continued application of urea 42% to right foot subfifth callus tissue. Debridement of subfirst metatarsal head ulcer of the right foot performed with a 313 blade as noted in the clinical panel above.? Ulceration measures 0.1cm x 0.1cm x 0.1cm. No signs of infection. Offloading pad remains in place to bottom of his diabetic insert of the right foot, this is helping to decrease ulcer size.? I advised the patient to continue to stay off of his feet as much as possible to aid in pressure reduction for healing of this ulcerative site, however I do not believe he is doing this consistently.? I applied an epi fix graft #7 to the subfirst metatarsal Adaptic touch and anchored with Steri- Strips. I discussed with the patient to continue to check his feet daily for any signs of wounds or pressure sites which may contribute to wound formation.?He is to remain in the diabetic shoes with inserts for proper offloading of the pressure sites and to not wear house sandals or house slippers or go barefoot.? I reminded them that his wounds are caused secondarily from pressure due to his atrophic fat pad at the forefoot and plantigrade metatarsals creating direct pressure at the forefoot and pressure reduction is the fields to continued healing and prevention or recurrence of wounds. I discussed the localized signs of infection with the patient's and his today and instructed them if they notice any increased redness around the wound, purulent drainage, malodor, red streaking going up the leg, or if he experiences any nausea, vomiting, fever, chills to go to the emergency department for treatment as these are signs of a progressing infection.? and patient voiced understanding of this. 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 Atrophic fat pad at the forefoot.? Parkinson's disease. ? I answered all the patient's questions.? To return to the wound healing center in 1 week or call sooner if the patient has any questions or concerns. Note: [employer] speech recognition cloth finishing range back tender software was used to create portions of this document. Sound-alike and misspelled words, as well as other cloth finishing range back tender errors may be contained in the documentation.
[2022-04-21 10:06] VITALS: BP 121/63; PULSE 73; RESP 16; TEMP 36.2; BMI 21.2
--- NOTE | 2022-04-21 13:33 | PCM.WC.PN ---
History of Present Illness Date of Service: 04/21/22 Chief Complaint: Foot wound History of Wound: 75-year-old male who was referred for evaluation relative to wounds on his feet. He has apparently been under the care of Dr. Cheung, podiatric specialist, recently, though no such medical records are available. According to the patient, and his , the patient was evaluated in Dr. Cheung's office, and the calluses on the plantar aspect of both feet were scraped. Bleeding was encountered. The patient indicates that he was then referred for further evaluation and management at the [facility]. The patient's pre-existing medical problems include diabetes mellitus, hyperlipidemia, Parkinson's disease, hypertension, debility, and generalized weakness. Subjective Subjective This 76-year-old male presents for follow-up to the wound care center with a right foot subfirst metatarsal ulceration. ?He is accompanied by his today. He remains compliant in wearing diabetic shoes with protective inserts with plantar offloading padding. He admits to trying to stay off his feet more with legs elevated. His states she is trying to aid in keeping an adequate diet to aid his healing. He denies any constitutional symptoms today.? He has no other complaints today. Objective Data Objective Data Vital Signs: Vital Signs Temp Pulse Resp BP O2 Del Method 97.2 F L 73 16 121/63 H Room Air 04/21/22 10:06 04/21/22 10:06 04/21/22 10:06 04/21/22 10:06 04/21/22 10:06 Oxygen Delivery Method Room Air Weight: 67.132 kg Body Mass Index (BMI) 21.2 Physical Exam Const alert, oriented x3 and no apparent distress General Appearance: cooperative and comfortable HEENT normocephalic Eyes General Eye: normal appearance of both eyes Neck General: normal visual inspection Resp normal respiratory effort Cardio regular rate and regular rhythm Extremity normal capillary refill, no joint enlargement, no calf tenderness and no pedal edema Skin no rashes or lesions noted, skin turgor normal and no jaundice Wound Narrative: Right foot: Some first metatarsal ulceration measures 0.1 cm x 0.1 cm x 0.1 cm.? Ulcerative base demonstrates healthy granular tissue with surrounding hyperkeratotic tissue.? No signs of infection. Left foot: Hyperkeratotic tissue distal tuft of 3rd digit secondary to hammertoe deformity. Site is healed and offloaded with padding. Neuro oriented x3 and moves all extremities Debridement Note Debridement Note Wound debrided: Sub first metatarsal head Laterality: Right Wound Grade/Stage: Owusu stage I Type of Debridement: Excisional debridement Anesthesia Used: 5% Lidocaine Gel Depth: Down to and including healthy tissue and in the subcutaneous layer Percentage of wound debrided: 100 Instrument Used: - (313 blade) Tissue Removed: Fibrous, devitalized subcutaneous, biofilm, slough Severity: Fat Layer Exposed Amount of bleeding with debridement: Mild Bleeding Controlled with: Compression and gauze Patient tolerated procedure: Patient tolerated procedure well Post-Debridement Measurements and Additional Note: Post-Debridement Measurements/Treatment - Nurse 1 - General Ulcer Assessment Start: 03/31/22 10:02 Freq: Status: Active Protocol: TAMIR Activity Type Activity Date Activity User E-sign Co-sign Detail Recorded Client Recorded Date Recorded By Document 03/31/22 10:02 AK [id number] 03/31/22 10:03 AK Document 04/07/22 09:46 KR [id number] 04/07/22 09:50 KR Document 04/14/22 10:05 KR [id number] 04/14/22 10:06 KR Document 04/21/22 10:06 NH [id number] 04/21/22 10:07 MT 03/31/22 04/07/22 04/14/22 10:02 09:46 10:05 - Today's Visit Information Type of service Follow-up Visit Follow-up Visit Follow-up Visit (Physician/AIR TRAFFIC CONTROL SPECIALIST (Physician/AIR TRAFFIC CONTROL SPECIALIST (Physician/AIR TRAFFIC CONTROL SPECIALIST ) ) ) Arrival Mode Ambulatory Ambulatory Ambulatory Patient Identification Verified (Name & Yes Yes Yes ) Finger Stick Blood Sugar(mg/dl) (if indicated): Blood Sugar Height and Weight Body Mass Index (BMI) 21.2 21.2 21.2 BMI Classification Normal Normal Normal Vital Signs Temperature (97.8 F-99.1 F) 97.4 F L 97.6 F L 97.5 F L Temperature Source Temporal Temporal Temporal Pulse Rate (60-100) 86 74 79 Pulse Location Monitor Monitor Monitor Respiratory Rate (12-18) Respiratory rate source Oxygen Delivery Method Blood Pressure (90/60-120/80) 115/59 L 118/64 114/61 Blood Pressure Mean (mm Hg) 77 82 78 Source Monitor Monitor Monitor Position Sitting Semi-Fowlers Sitting Blood Pressure Location Right Arm Right Arm Right Arm History Since Last Visit- (Skip if this is Patient's initial visit) Have you changed medications since your No No No last visit? Any new allergies or adverse reactions No No No Had a fall/change in ADL's that may No No No increase risk of falls Signs or symptoms of abuse and/or No No No neglect since last visit Have you been in the hospital since your No No No last visit? Has dressing in place as prescribed Yes Yes Yes Has compression in place as prescribed Yes N/A N/A Has offloadiing in place as prescribed N/A N/A N/A Experienced any changes in pain level or No No No management Left Footwear Regular Shoe Regular Shoe Regular Shoe Right Footwear Regular Shoe Regular Shoe Regular Shoe Pain Scale: 0-10 Numeric Is Patient Pain Free? Yes Yes Yes 04/21/22 10:06 WC - Today's Visit Information Type of service Follow-up Visit (Physician/AIR TRAFFIC CONTROL SPECIALIST ) Arrival Mode Ambulatory Patient Identification Verified (Name & Yes ) Finger Stick Blood Sugar(mg/dl) (if 135 indicated): Blood Sugar Stated by Patient Height and Weight Body Mass Index (BMI) 21.2 BMI Classification Normal Vital Signs Temperature (97.8 F-99.1 F) 97.2 F L Temperature Source Temporal Pulse Rate (60-100) 73 Pulse Location Monitor Respiratory Rate (12-18) 16 Respiratory rate source Observation Oxygen Delivery Method Room Air Blood Pressure (90/60-120/80) 121/63 H Blood Pressure Mean (mm Hg) 82 Source Monitor Position Sitting Blood Pressure Location Left Arm History Since Last Visit- (Skip if this is Patient's initial visit) Have you changed medications since your last visit? Any new allergies or adverse reactions Had a fall/change in ADL's that may increase risk of falls Signs or symptoms of abuse and/or neglect since last visit Have you been in the hospital since your last visit? Has dressing in place as prescribed Yes Has compression in place as prescribed Yes Has offloadiing in place as prescribed Yes Experienced any changes in pain level or Yes management Left Footwear Regular Shoe Right Footwear Regular Shoe Pain Scale: 0-10 Numeric Is Patient Pain Free? Yes WC - Nurse 1 - General Ulcer Measurement Start: 03/31/22 10:02 Freq: Status: Active Protocol: Activity Type Activity Date Activity User E-sign Co-sign Detail Recorded Client Recorded Date Recorded By Document 03/31/22 10:02 AK [id number] 03/31/22 10:03 AK Document 04/07/22 09:46 KR [id number] 04/07/22 09:50 KR Document 04/14/22 10:05 KR [id number] 04/14/22 10:06 KR Document 04/21/22 10:06 MT [id number] 04/21/22 10:07 MT 03/31/22 04/07/22 04/14/22 10:02 09:46 10:05 Wound Center Nurse 1 #4 left 3rd toe -Current Size (cm) - Length 0.2 0.1 -Current Size (cm) - Width 0.5 0.1 -Current Size (cm) - Depth 0.1 0.1 -Total Square Cm 0.10 0.01 -Exudate Amt Small -Exudate Type Serosanguineous -Wound Margin Distinct, Outline Attached -Granulation Amt Small (1-33%) -Granulation Quality [place] -Necrosis Amt None Present (0 %) -Texture (Kathya-wound Skin Appearance) Assessed, Scarring -Moisture (Kathya-wound Skin Appearance) Assessed,Dry/ Scaly -Color (Kathya-wound Skin Appearance) No Abnormality, Assessed -Temperature (Kathya-wound Skin No Abnormality Appearance) (Pt Warm) -Tenderness on Palpation (Kathya-wound No Skin Appearance) -Ulcer Cleansing Rinsed/ Irrigated with Saline -Foul Odor after Cleansing No -Anesthetic Used 5% Lidocaine Gel #2- R 1ST MET HEAD -Current Size (cm) - Length 2 0.3 0.3 -Current Size (cm) - Width 2.4 0.4 0.4 -Current Size (cm) - Depth 0.3 0.1 0.1 -Total Square Cm 4.8 0.12 0.12 -Circular Undermining -Exudate Amt Small Small Small -Exudate Type Serosanguineous Serosanguineous Serosanguineous -Wound Margin Distinct, Distinct, Distinct, Outline Outline Outline Attached Attached Attached -Granulation Amt Medium (34-66%) Medium (34-66%) Small (1-33%) -Granulation Quality [place] -Necrosis Amt Small (1-33%) None Present (0 None Present (0 %) %) -Necrotic Tissue Type Adherent Slough -Texture (Kathya-wound Skin Appearance) Assessed, Scarring Assessed,Rash Scarring -Moisture (Kathya-wound Skin Appearance) No Abnormality, No Abnormality, Assessed Assessed -Color (Kathya-wound Skin Appearance) No Abnormality, No Abnormality, No Abnormality, Assessed Assessed Assessed -Temperature (Kathya-wound Skin No Abnormality No Abnormality No Abnormality Appearance) (Pt Warm) (Pt Warm) (Pt Warm) -Tenderness on Palpation (Kathya-wound No No No Skin Appearance) -Ulcer Cleansing Rinsed/ Rinsed/ Rinsed/ Irrigated with Irrigated with Irrigated with Saline Saline Saline -Foul Odor after Cleansing No No No -Anesthetic Used 5% Lidocaine 5% Lidocaine 5% Lidocaine Gel Gel Gel 04/21/22 10:06 Wound Center Nurse 1 #4 left 3rd toe -Current Size (cm) - Length -Current Size (cm) - Width -Current Size (cm) - Depth -Total Square Cm -Exudate Amt -Exudate Type -Wound Margin -Granulation Amt -Granulation Quality -Necrosis Amt -Texture (Kathya-wound Skin Appearance) -Moisture (Kathya-wound Skin Appearance) -Color (Kathya-wound Skin Appearance) -Temperature (Kathya-wound Skin Appearance) -Tenderness on Palpation (Kathya-wound Skin Appearance) -Ulcer Cleansing -Foul Odor after Cleansing -Anesthetic Used #2- R 1ST MET HEAD -Current Size (cm) - Length 0.5 -Current Size (cm) - Width 0.5 -Current Size (cm) - Depth 0.4 -Total Square Cm 0.25 -Circular Undermining Yes -Exudate Amt Small -Exudate Type Serosanguineous -Wound Margin Thickened & Rolled Under -Granulation Amt Medium (34-66%) -Granulation Quality Pale,[place] -Necrosis Amt Medium (34-66%) -Necrotic Tissue Type Adherent Slough -Texture (Kathya-wound Skin Appearance) Assessed,Callus -Moisture (Kathya-wound Skin Appearance) Assessed -Color (Kathya-wound Skin Appearance) Assessed -Temperature (Kathya-wound Skin No Abnormality Appearance) (Pt Warm) -Tenderness on Palpation (Kathya-wound No Skin Appearance) -Ulcer Cleansing Soap and Water -Foul Odor after Cleansing No -Anesthetic Used 4% Lidocaine Solution WC - Nurse 2 - General Ulcer CM Notes Start: 03/31/22 10:02 Freq: Status: Active Protocol: Activity Type Activity Date Activity User E-sign Co-sign Detail Recorded Client Recorded Date Recorded By Document 03/31/22 12:33 PL [id number] 03/31/22 12:35 PL Document 04/07/22 11:39 PL [id number] 04/07/22 11:42 PL Document 04/14/22 12:41 PL [id number] 04/14/22 12:43 PL Document 04/21/22 12:59 PL [id number] 04/21/22 13:00 PL 03/31/22 04/07/22 04/14/22 12:33 11:39 12:41 Wound Center Nurse 2 #4 left 3rd toe -Time 10:30 -Correct Patient Yes -Correct Side, Site, Position Yes -Correct Procedure Yes -Procedure Performed Yes No -Type of Procedure Debridement -Clinical Debridement Subcutaneous -Tissue Removed Subcutaneous -Post Debridement (cm) - Length 0.2 -Post Debridement (cm) - Width 0.5 -Post Debridement (cm) - Depth 0.1 -Total Square (Post) (cm) 0.10 -Area of Debridement (cm) - Length 0.2 -Area of Debridement (cm) - Width 0.5 -Total Square (Area) (cm) 0.10 -Tunneling No -Undermining/Tunneling No -Circular Undermining No -Wound/Ulcer Outcome Not Healed Healed- Epithelialized -Ulcer Cleansing Rinsed/ Irrigated with Saline -Foul Odor after Cleansing No -Bioengineered Tissue No -Bleeding Controlled with Pressure -Treatment Response Procedure Tolerated Well -Debridement - Subq, 1st 20sq cm Yes #2- R 1ST MET HEAD -Time 10:23 10:30 10:24 -Correct Patient Yes Yes Yes -Correct Side, Site, Position Yes Yes Yes -Correct Procedure Yes Yes Yes -Procedure Performed Yes Yes Yes -Type of Procedure Debridement Debridement Debridement -Clinical Debridement Subcutaneous Subcutaneous Subcutaneous -Tissue Removed Subcutaneous Subcutaneous Subcutaneous -Post Debridement (cm) - Length 2.0 0.3 0.3 -Post Debridement (cm) - Width 2.4 0.4 0.4 -Post Debridement (cm) - Depth 0.3 0.1 0.1 -Total Square (Post) (cm) 4.80 0.12 0.12 -Area of Debridement (cm) - Length 2.0 0.3 0.3 -Area of Debridement (cm) - Width 2.4 0.4 0.4 -Total Square (Area) (cm) 4.80 0.12 0.12 -Tunneling No No No -Undermining/Tunneling No No No -Circular Undermining No No No -Wound/Ulcer Outcome Not Healed Not Healed Not Healed -Ulcer Cleansing Rinsed/ Soap and Water Rinsed/ Irrigated with Irrigated with Saline Saline -Foul Odor after Cleansing No No No -Bioengineered Tissue Yes Yes Yes -Type of Bioengineered Tissue Epifix 18mm Epifix 18mm Epifix 18mm Disc Disc Disc -Expiration Date 12/26/26 01/26/27 01/26/27 -Product Lot Number [id number] -Percent Used 100 100 100 -Lot number of Saline Used [id number] -Bleeding Controlled with Pressure Pressure Pressure -Treatment Response Procedure Procedure Procedure Tolerated Well Tolerated Well Tolerated Well -Debridement - Subq, 1st 20sq cm No No No -Apply Skin Sub - 1st 25 sq cm - Feet 1 1 1 -Epifix 18mm Disc 3 3 3 Pain Scale: 0-10 Numeric Is Patient Pain Free? Yes Yes Yes 04/21/22 12:59 Wound Center Nurse 2 #4 left 3rd toe -Time -Correct Patient -Correct Side, Site, Position -Correct Procedure -Procedure Performed -Type of Procedure -Clinical Debridement -Tissue Removed -Post Debridement (cm) - Length -Post Debridement (cm) - Width -Post Debridement (cm) - Depth -Total Square (Post) (cm) -Area of Debridement (cm) - Length -Area of Debridement (cm) - Width -Total Square (Area) (cm) -Tunneling -Undermining/Tunneling -Circular Undermining -Wound/Ulcer Outcome -Ulcer Cleansing -Foul Odor after Cleansing -Bioengineered Tissue -Bleeding Controlled with -Treatment Response -Debridement - Subq, 1st 20sq cm #2- R 1ST MET HEAD -Time 10:23 -Correct Patient Yes -Correct Side, Site, Position Yes -Correct Procedure Yes -Procedure Performed Yes -Type of Procedure Debridement -Clinical Debridement Subcutaneous -Tissue Removed Subcutaneous -Post Debridement (cm) - Length 0.5 -Post Debridement (cm) - Width 0.5 -Post Debridement (cm) - Depth 0.1 -Total Square (Post) (cm) 0.25 -Area of Debridement (cm) - Length 0.5 -Area of Debridement (cm) - Width 0.5 -Total Square (Area) (cm) 0.25 -Tunneling No -Undermining/Tunneling No -Circular Undermining No -Wound/Ulcer Outcome Not Healed -Ulcer Cleansing Rinsed/ Irrigated with Saline -Foul Odor after Cleansing No -Bioengineered Tissue Yes -Type of Bioengineered Tissue Epifix 18mm Disc -Expiration Date 12/26/26 -Product Lot Number [id number] -Percent Used 100 -Lot number of Saline Used [id number] -Bleeding Controlled with Pressure -Treatment Response Procedure Tolerated Well -Debridement - Subq, 1st 20sq cm No -Apply Skin Sub - 1st 25 sq cm - Feet 1 -Epifix 18mm Disc 3 Pain Scale: 0-10 Numeric Is Patient Pain Free? Yes WC - Nurse 3 - General Ulcer D/C NN Start: 03/31/22 10:02 Freq: Status: Active Protocol: Activity Type Activity Date Activity User E-sign Co-sign Detail Recorded Client Recorded Date Recorded By Document 03/31/22 11:28 AK [id number] 03/31/22 11:29 AK Document 04/07/22 10:50 [id number] 04/07/22 10:50 Document 04/14/22 12:21 AK [id number] 04/14/22 12:22 AK Document 04/21/22 11:18 KR [id number] 04/21/22 11:18 KR 03/31/22 04/07/22 04/14/22 11:28 10:50 12:21 Wound Care Nurse 3 #4 left 3rd toe -Primary Dressing Covered/Secured with Dry Gauze, Secured with Tape #2- R 1ST MET HEAD -Ulcer Cleansing Rinsed/ Irrigated with Saline -Foul Odor after Cleansing No -Primary Dressing Covered/Secured with Dry Gauze & Dry Gauze & Roll Gauze, Roll Gauze, Secured with Secured with Tape Tape Pain Scale: 0-10 Numeric Is Patient Pain Free? Yes Yes Yes WC - Visit Discharge Discharge Condition Stable Stable Stable Ambulatory Status Ambulatory Ambulatory Ambulatory Transportation Private Auto Private Auto Private Auto Accompanied by Medication Reconcilliation completed & Yes Yes Yes provided to patient/care provider Clinical Summary of Care Provided Yes Yes Yes 04/21/22 11:18 Wound Care Nurse 3 #4 left 3rd toe -Primary Dressing Covered/Secured with #2- R 1ST MET HEAD -Ulcer Cleansing Rinsed/ Irrigated with Saline -Foul Odor after Cleansing -Primary Dressing Covered/Secured with Dry Gauze, Secured with Tape Pain Scale: 0-10 Numeric Is Patient Pain Free? Yes WC - Visit Discharge Discharge Condition Stable Ambulatory Status Ambulatory Transportation Private Auto Accompanied by Medication Reconcilliation completed & provided to patient/care provider Clinical Summary of Care Provided Assessment/Plan Assessment/Plan (1) Non-pressure chronic ulcer of other part of right foot with fat layer exposed: CODE(S): L97.512 - Non-pressure chronic ulcer of other part of right foot with fat layer exposed (2) Non-pressure chronic ulcer of other part of left foot with fat layer exposed: CODE(S): L97.522 - Non-pressure chronic ulcer of other part of left foot with fat layer exposed (3) Parkinsons disease: CODE(S): G20 - Parkinson's disease (4) Parkinson's disease dementia: CODE(S): G20 - Parkinson's disease; F02.80 - Dementia in other diseases classified elsewhere without behavioral disturbance QUALIFIERS: Qualified Code(s): F02.80 - Dementia in other diseases classified elsewhere without behavioral disturbance (5) Diabetes mellitus, type II: CODE(S): E11.9 - Type 2 diabetes mellitus without complications (6) Generalized weakness: CODE(S): R53.1 - Weakness (7) Acute renal insufficiency: CODE(S): N28.9 - Disorder of kidney and ureter, unspecified (8) Callus of foot: CODE(S): L84 - Corns and callosities PLAN: Plan Patient seen and evaluated. Ulceration distal tuft third digit remains healed with some hyperkeratotic tissue. No signs of infection. Ulceration caused secondary to pressure via hammertoe deformity. I debrided callus buildup around the distal tuft of the digit continued offloading of the digit with a crest pad. Sub- fourth metatarsal head right demonstrates little callus tissue buildup this was sharply debrided with a 313 blade without incident.? Site remains healed. Recommend continued application of urea 42% to right foot callus tissue. Debridement of subfirst metatarsal head ulcer of the right foot performed with a 313 blade as noted in the clinical panel above.? Ulceration measures 0.1cm x 0.1cm x 0.1cm. No signs of infection. Offloading pad remains in place to bottom of his diabetic insert of the right foot, this is helping to decrease ulcer size. I applied additional padding to the plantar aspect of the diabetic insert today. I advised the patient to continue to stay off of his feet as much as possible to aid in pressure reduction for healing of this ulcerative site, however I do not believe he is doing this consistently.? I applied an epi fix graft #8 to the subfirst metatarsal Adaptic touch and anchored with Steri-Strips. I discussed with the patient to continue to check his feet daily for any signs of wounds or pressure sites which may contribute to wound formation.?He is to remain in the diabetic shoes with inserts for proper offloading of the pressure sites and to not wear house sandals or house slippers or go barefoot.? I reminded them that his wounds are caused secondarily from pressure due to his atrophic fat pad at the forefoot and plantigrade metatarsals creating direct pressure at the forefoot and pressure reduction is the fields to continued healing and prevention or recurrence of wounds. I discussed the localized signs of infection with the patient's and his today and instructed them if they notice any increased redness around the wound, purulent drainage, malodor, red streaking going up the leg, or if he experiences any nausea, vomiting, fever, chills to go to the emergency department for treatment as these are signs of a progressing infection.? and patient voiced understanding of this. 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 Atrophic fat pad at the forefoot.? Parkinson's disease. ? I answered all the patient's questions.? To return to the wound healing center in 1 week or call sooner if the patient has any questions or concerns. Note: [employer] speech recognition parliamentary counsel software was used to create portions of this document. Sound-alike and misspelled words, as well as other parliamentary counsel errors may be contained in the documentation.
== END 2022-04-27 23:59 | disposition home or self-care (01) ==
LOC: WC 10:00
PROVIDERS: PCP Nurse Practitioner Family; Visit Provider Student in an Organized Health Care Education/Training Program
DX: E11.621 Type 2 diabetes mellitus with foot ulcer (principal); L97.522 Non-pressure chronic ulcer of other part of left foot with fat layer exposed; L97.512 Non-pressure chronic ulcer of other part of right foot with fat layer exposed; G31.83 Neurocognitive disorder with Lewy bodies; F02.80 Dementia in other diseases classified elsewhere, unspecified severity, without behavioral disturbance, psychotic disturbance, mood disturbance, and anxiety; I10 Essential (primary) hypertension; R53.81 Other malaise; E78.5 Hyperlipidemia, unspecified; R53.1 Weakness; L84 Corns and callosities
CPT/HCPCS: 11042; 15275; Q4186

== ENCOUNTER 2022-05-26 09:30 | Outpatient (RCR) | payer MEDICARE, OTHER, SELFPAY ==
[2022-04-28 00:22] VITALS: BP 121/63; PULSE 73; RESP 16; TEMP 36.2; BMI 21.2
[2022-04-28 10:38] VITALS: BP 123/66; PULSE 79; RESP 16; TEMP 35.5; BMI 21.2
--- NOTE | 2022-04-28 12:43 | PN.PCM_ITS ---
History of Present Illness Date of Service: 04/28/22 Chief Complaint: Foot wound History of Wound: 75-year-old male who was referred for evaluation relative to wounds on his feet. He has apparently been under the care of Dr. Cheung, podiatric specialist, recently, though no such medical records are available. According to the patient, and his , the patient was evaluated in Dr. Cheung's office, and the calluses on the plantar aspect of both feet were scraped. Bleeding was encountered. The patient indicates that he was then referred for further evaluation and management at the [facility]. The patient's pre-existing medical problems include diabetes mellitus, hyperlipidemia, Parkinson's disease, hypertension, debility, and generalized weakness. Subjective Subjective This 76-year-old male presents for follow-up to the wound care center with a right foot subfirst metatarsal ulceration. ?He is accompanied by his today. He remains compliant in wearing diabetic shoes with protective inserts with plantar offloading padding. states that he is trying to stay off his feet more with legs elevated.? His states she is trying to aid in keeping an adequate diet to aid his healing. He denies any constitutional symptoms today.? He has no other complaints today. Objective Data Objective Data Vital Signs: Vital Signs Temp Pulse Resp BP O2 Del Method 95.9 F L 79 16 123/66 H Room Air 04/28/22 10:38 04/28/22 10:38 04/28/22 10:38 04/28/22 10:38 04/28/22 10:38 Oxygen Delivery Method Room Air Weight: 67.132 kg Body Mass Index (BMI) 21.2 Physical Exam Const alert, oriented x3 and no apparent distress General Appearance: cooperative HEENT normocephalic Eyes General Eye: normal appearance of both eyes Neck General: normal visual inspection Lymph Lymphatic: no lymphadenopathy noted and no lymphedema noted Resp normal respiratory effort Cardio regular rate and regular rhythm Extremity normal capillary refill, no joint enlargement, no calf tenderness and no pedal edema Peripheral Pulses: Yes posterior tibial pulses present and dorsalis pedis pulses present Skin no rashes or lesions noted, skin turgor normal and no jaundice Skin Narrative: Skin is thin/atrophic bilaterally Fat pad atrophy bilaterally to the forefoot Wound Narrative: Right foot: Some first metatarsal ulceration measures 0.1 cm x 0.1 cm x 0.1 cm.? Ulcerative base demonstrates healthy granular tissue with surrounding hyperkeratotic tissue.? No signs of infection. Left foot: Hyperkeratotic tissue distal tuft of 3rd digit secondary to hammertoe deformity. Site is healed and offloaded with padding. Neuro oriented x3 and moves all extremities Debridement Note Debridement Note Wound debrided: Sub first metatarsal head Laterality: Right Wound Grade/Stage: Ow[place]u stage I Type of Debridement: Excisional debridement Anesthesia Used: 5% Lidocaine Gel Depth: Down to and including healthy tissue and in the subcutaneous layer Percentage of wound debrided: 100 Instrument Used: - (313 blade) Tissue Removed: Fibrous, devitalized subcutaneous, biofilm, slough Severity: Fat Layer Exposed Amount of bleeding with debridement: Mild Bleeding Controlled with: Compression and gauze Patient tolerated procedure: Patient tolerated procedure well Post-Debridement Measurements and Additional Note: Post-Debridement Measurements/Treatment - Nurse 1 - General Ulcer Assessment Start: 04/28/22 10:38 Freq: Status: Active Protocol: TAMIR Activity Type Activity Date Activity User E-sign Co-sign Detail Recorded Client Recorded Date Recorded By Document 04/28/22 10:38 [facility] [id number] 04/28/22 10:49 [facility] 04/28/22 10:38 - Today's Visit Information Type of service Follow-up Visit (Physician/SUPERVISOR SAWMILL ) Arrival Mode Ambulatory Transfer Assistance None Accompanied by Patient Identification Verified (Name & Yes ) Patient Requires Transmission-Based No Precautions Height and Weight Body Mass Index (BMI) 21.2 BMI Classification Normal Vital Signs Temperature (97.8 F-99.1 F) 95.9 F L Temperature Source Temporal Pulse Rate (60-100) 79 Pulse Location Monitor Respiratory Rate (12-18) 16 Respiratory rate source Observation Oxygen Delivery Method Room Air Blood Pressure (90/60-120/80) 123/66 H Blood Pressure Mean (mm Hg) 85 Source Monitor Position Sitting Blood Pressure Location Right Arm History Since Last Visit- (Skip if this is Patient's initial visit) Have you changed medications since your No last visit? Any new allergies or adverse reactions No Had a fall/change in ADL's that may No increase risk of falls Signs or symptoms of abuse and/or No neglect since last visit Have you been in the hospital since your No last visit? Has dressing in place as prescribed Yes Has compression in place as prescribed N/A Has offloadiing in place as prescribed N/A Experienced any changes in pain level or No management Left Footwear Regular Shoe Right Footwear Regular Shoe Pain Scale: 0-10 Numeric Is Patient Pain Free? Yes - Nurse 1 - General Ulcer Measurement Start: 04/28/22 10:38 Freq: Status: Active Protocol: Activity Type Activity Date Activity User E-sign Co-sign Detail Recorded Client Recorded Date Recorded By Document 04/28/22 10:38 [facility] [id number] 04/28/22 10:49 [facility] 04/28/22 10:38 Wound Center Nurse 1 #2- R 1ST MET HEAD -Combined with other wound No -Current Size (cm) - Length 0.3 -Current Size (cm) - Width 0.4 -Current Size (cm) - Depth 0.4 -Total Square Cm 0.12 -Date of Last Picture (Recall this 04/28/22 field) -Photo Taken Yes -Epithelialization None Present -Tunneling No -Undermining/Tunneling No -Circular Undermining No -Exudate Amt Small -Exudate Type Serous -Wound Margin Distinct, Outline Attached -Granulation Amt Small (1-33%) -Granulation Quality [place] -Slough/Fibrin Yes -Necrosis Amt Medium (34-66%) -Necrotic Tissue Type Adherent Slough -Texture (Kathya-wound Skin Appearance) Assessed,Callus -Moisture (Kathya-wound Skin Appearance) Assessed,Dry/ Scaly -Color (Kathya-wound Skin Appearance) Assessed -Temperature (Kathya-wound Skin No Abnormality Appearance) (Pt Warm) -Tenderness on Palpation (Kathya-wound No Skin Appearance) -Ulcer Cleansing Soap and Water -Foul Odor after Cleansing No -Anesthetic Used 5% Lidocaine Gel REECE - Nurse 3 - General Ulcer D/C NN Start: 04/28/22 10:38 Freq: Status: Active Protocol: Activity Type Activity Date Activity User E-sign Co-sign Detail Recorded Client Recorded Date Recorded By Document 04/28/22 11:33 [facility] [id number] 04/28/22 11:33 [facility] 04/28/22 11:33 Wound Care Nurse 3 -Other Dressing EPIFIX -Primary Dressing Covered/Secured with Dry Gauze, Secured with Tape Treatment Response Procedure Tolerated Well Pain Scale: 0-10 Numeric Is Patient Pain Free? Yes WC - Visit Discharge Discharge Condition Stable Ambulatory Status Ambulatory Transportation Private Auto Accompanied by Assessment/Plan Assessment/Plan (1) Non-pressure chronic ulcer of other part of right foot with fat layer exposed: CODE(S): L97.512 - Non-pressure chronic ulcer of other part of right foot with fat layer exposed (2) Non-pressure chronic ulcer of other part of left foot with fat layer exposed: CODE(S): L97.522 - Non-pressure chronic ulcer of other part of left foot with fat layer exposed (3) Diabetes mellitus, type II: CODE(S): E11.9 - Type 2 diabetes mellitus without complications (4) Callus of foot: CODE(S): L84 - Corns and callosities (5) Generalized weakness: CODE(S): R53.1 - Weakness (6) Acute renal insufficiency: CODE(S): N28.9 - Disorder of kidney and ureter, unspecified (7) Parkinsons disease: CODE(S): G20 - Parkinson's disease (8) Parkinson's disease dementia: CODE(S): G20 - Parkinson's disease; F02.80 - Dementia in other diseases classified elsewhere without behavioral disturbance QUALIFIERS: Qualified Code(s): F02.80 - Dementia in other diseases classified elsewhere without behavioral disturbance PLAN: Plan Patient seen and evaluated. Ulceration distal tuft third digit remains healed with some hyperkeratotic tissue.? No signs of infection.? Ulceration caused secondary to pressure via hammertoe deformity.? I debrided callus buildup around the distal tuft of the digit continued offloading of the digit with a crest pad. Sub- fourth metatarsal head right demonstrates little callus tissue buildup this was sharply debrided with a 313 blade without incident.?Site remains healed, but does demonstrate subdermal hemorrhaging consistent with continued pressure. Recommend continued application of urea 42% to right foot callus tissue. Debridement of subfirst metatarsal head ulcer of the right foot performed with a 313 blade as noted in the clinical panel above.? Ulceration measures 0.1cm x 0.1cm x 0.1cm. No signs of infection. Offloading pad remains in place to bottom of his diabetic insert of the right foot, this is helping to decrease ulcer size.?I advised the patient to continue to stay off of his feet as much as possible to aid in pressure reduction for healing of this ulcerative site, however I do not believe he is doing this consistently due to ulceration failing to progress and the subdermal hemorrhaging noted today at the subfourth metatarsal callus site.? I applied an epi fix graft #9 to the subfirst metatarsal Adaptic touch and anchored with Steri-Strips. I discussed with the patient to continue to check his feet daily for any signs of wounds or pressure sites which may contribute to wound formation.?He is to remain in the diabetic shoes with inserts for proper offloading of the pressure sites and to not wear house sandals or house slippers or go barefoot.? I reminded them that his wounds are caused secondarily from pressure due to his atrophic fat pad at the forefoot and plantigrade metatarsals creating direct pressure at the forefoot and pressure reduction is the fields to continued healing and prevention or recurrence of wounds. I again stressed the importance of staying off of his feet as much as possible to allow the wounds to reducing pres sure and allow for healing. I discussed the localized signs of infection with the patient's and his today and instructed them if they notice any increased redness around the wound, purulent drainage, malodor, red streaking going up the leg, or if he experiences any nausea, vomiting, fever, chills to go to the emergency department for treatment as these are signs of a progressing infection.? and patient voiced understanding of this. 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 Atrophic fat pad at the forefoot.? Parkinson's disease. ? I answered all the patient's questions.? To return to the wound healing center in 2 weeks or call sooner if the patient has any questions or concerns. Note: [employer] speech recognition echometer engineer software was used to create portions of this document. Sound-alike and misspelled words, as well as other echometer engineer errors may be contained in the documentation.
[2022-05-12 10:40] VITALS: BP 124/78; PULSE 78; TEMP 35.7; BMI 21.2
--- NOTE | 2022-05-12 13:10 | PN.PCM_ITS ---
History of Present Illness Date of Service: 05/12/22 Chief Complaint: Foot wound History of Wound: 75-year-old male who was referred for evaluation relative to wounds on his feet. He has apparently been under the care of Dr. Cheung, podiatric specialist, recently, though no such medical records are available. According to the patient, and his , the patient was evaluated in Dr. Cheung's office, and the calluses on the plantar aspect of both feet were scraped. Bleeding was encountered. The patient indicates that he was then referred for further evaluation and management at the [facility]. The patient's pre-existing medical problems include diabetes mellitus, hyperlipidemia, Parkinson's disease, hypertension, debility, and generalized weakness. Subjective Subjective This 76-year-old male presents for follow-up to the wound care center with a right foot subfirst metatarsal ulceration. ?He is accompanied by his today. He and his state that he is remaining compliant in wearing diabetic shoes with protective inserts with plantar offloading padding.? His states she is trying to aid in keeping an adequate diet to aid his healing. He denies any constitutional symptoms today.? He has no other complaints today. Objective Data Objective Data Vital Signs: Vital Signs Temp Pulse Resp BP O2 Del Method 96.3 F L 78 16 124/78 H Room Air 05/12/22 10:40 05/12/22 10:40 04/28/22 10:38 05/12/22 10:40 04/28/22 10:38 Oxygen Delivery Method Room Air Weight: 67.132 kg Body Mass Index (BMI) 21.2 Physical Exam Const alert, oriented x3 and no apparent distress General Appearance: cooperative HEENT normocephalic Eyes General Eye: normal appearance of both eyes Neck General: normal visual inspection Lymph Lymphatic: no lymphadenopathy noted and no lymphedema noted Resp normal respiratory effort Cardio regular rate and regular rhythm Extremity normal capillary refill, no joint enlargement, no calf tenderness and no pedal edema Skin no rashes or lesions noted, skin turgor normal and no jaundice Skin Narrative: Skin is thin/atrophic bilaterally Fat pad atrophy bilaterally to the forefoot Wound Narrative: Right foot: Some first metatarsal ulceration measures 0.1 cm x 0.1 cm x 0.1 cm.? Ulcerative base demonstrates healthy granular tissue with surrounding hyperkeratotic tissue.? No signs of infection. Left foot: Hyperkeratotic tissue distal tuft of 3rd digit secondary to hammertoe deformity. Site is healed and offloaded with padding. Neuro oriented x3 and moves all extremities Debridement Note Debridement Note Wound debrided: Subfirst metatarsal Laterality: Right Wound Grade/Stage: Owusu stage I Type of Debridement: Excisional debridement Anesthesia Used: 5% Lidocaine Gel Depth: Down to and including healthy tissue and in the subcutaneous layer Percentage of wound debrided: 100 Instrument Used: - (313 blade) Tissue Removed: Fibrous, devitalized subcutaneous, biofilm, slough Severity: Fat Layer Exposed Amount of bleeding with debridement: Mild Bleeding Controlled with: Compression and gauze Patient tolerated procedure: Patient tolerated procedure well Post-Debridement Measurements and Additional Note: Post-Debridement Measurements/Treatment - Nurse 1 - General Ulcer Assessment Start: 04/28/22 10:38 Freq: Status: Active Protocol: TAMIR Activity Type Activity Date Activity User E-sign Co-sign Detail Recorded Client Recorded Date Recorded By Document 04/28/22 10:38 [facility] [id number] 04/28/22 10:49 [facility] Document 05/12/22 10:40 [id number] 05/12/22 10:42 KR 04/28/22 05/12/22 10:38 10:40 - Today's Visit Information Type of service Follow-up Visit Follow-up Visit (Physician/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 (Physician/ALUMIN[employer]AT 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 ) ) Arrival Mode Ambulatory Ambulatory Transfer Assistance None Accompanied by Patient Identification Verified (Name & Yes Yes ) Patient Requires Transmission-Based No Precautions Height and Weight Body Mass Index (BMI) 21.2 21.2 BMI Classification Normal Normal Vital Signs Temperature (97.8 F-99.1 F) 95.9 F L 96.3 F L Temperature Source Temporal Temporal Pulse Rate (60-100) 79 78 Pulse Location Monitor Monitor Respiratory Rate (12-18) 16 Respiratory rate source Observation Oxygen Delivery Method Room Air Blood Pressure (90/60-120/80) 123/66 H 124/78 H Blood Pressure Mean (mm Hg) 85 93 Source Monitor Monitor Position Sitting Semi-Fowlers Blood Pressure Location Right Arm Right Arm History Since Last Visit- (Skip if this is Patient's initial visit) Have you changed medications since your No No last visit? Any new allergies or adverse reactions No No Had a fall/change in ADL's that may No No increase risk of falls Signs or symptoms of abuse and/or No No neglect since last visit Have you been in the hospital since your No No last visit? Has dressing in place as prescribed Yes Yes Has compression in place as prescribed N/A N/A Has offloadiing in place as prescribed N/A N/A Experienced any changes in pain level or No No management Left Footwear Regular Shoe Regular Shoe Right Footwear Regular Shoe Regular Shoe Pain Scale: 0-10 Numeric Is Patient Pain Free? Yes Yes WC - Nurse 1 - General Ulcer Measurement Start: 04/28/22 10:38 Freq: Status: Active Protocol: Activity Type Activity Date Activity User E-sign Co-sign Detail Recorded Client Recorded Date Recorded By Document 04/28/22 10:38 [facility] [id number] 04/28/22 10:49 [facility] Document 05/12/22 10:40 KR [id number] 05/12/22 10:42 KR 04/28/22 05/12/22 10:38 10:40 Wound Center Nurse 1 #2- R 1ST MET HEAD -Combined with other wound No -Current Size (cm) - Length 0.3 0.2 -Current Size (cm) - Width 0.4 0.2 -Current Size (cm) - Depth 0.4 0.1 -Total Square Cm 0.12 0.04 -Date of Last Picture (Recall this 04/28/22 field) -Photo Taken Yes -Epithelialization None Present -Tunneling No -Undermining/Tunneling No -Circular Undermining No -Exudate Amt Small Small -Exudate Type Serous Serosanguineous -Wound Margin Distinct, Distinct, Outline Outline Attached Attached -Granulation Amt Small (1-33%) Medium (34-66%) -Granulation Quality [place] -Slough/Fibrin Yes -Necrosis Amt Medium (34-66%) None Present (0 %) -Necrotic Tissue Type Adherent Slough -Texture (Kathya-wound Skin Appearance) Assessed,Callus Assessed, Scarring -Moisture (Kathya-wound Skin Appearance) Assessed,Dry/ No Abnormality, Scaly Assessed -Color (Kathya-wound Skin Appearance) Assessed No Abnormality, Assessed -Temperature (Kathya-wound Skin No Abnormality No Abnormality Appearance) (Pt Warm) (Pt Warm) -Tenderness on Palpation (Kathya-wound No No Skin Appearance) -Ulcer Cleansing Soap and Water Rinsed/ Irrigated with Saline -Foul Odor after Cleansing No No -Anesthetic Used 5% Lidocaine 5% Lidocaine Gel Gel WC - Nurse 2 - General Ulcer CM Notes Start: 04/28/22 10:38 Freq: Status: Active Protocol: Activity Type Activity Date Activity User E-sign Co-sign Detail Recorded Client Recorded Date Recorded By Document 04/28/22 12:43 PL [id number] 04/28/22 12:44 PL 04/28/22 12:43 Wound Center Nurse 2 -Time 11:14 -Correct Patient Yes -Correct Side, Site, Position Yes -Correct Procedure Yes -Procedure Performed Yes -Type of Procedure Debridement -Clinical Debridement Subcutaneous -Tissue Removed Subcutaneous -Post Debridement (cm) - Length 0.5 -Post Debridement (cm) - Width 0.5 -Post Debridement (cm) - Depth 0.1 -Total Square (Post) (cm) 0.25 -Area of Debridement (cm) - Length 0.5 -Area of Debridement (cm) - Width 0.5 -Total Square (Area) (cm) 0.25 -Tunneling No -Undermining/Tunneling No -Circular Undermining No -Wound/Ulcer Outcome Not Healed -Ulcer Cleansing Rinsed/ Irrigated with Saline -Foul Odor after Cleansing No -Bioengineered Tissue Yes -Type of Bioengineered Tissue Epifix 18mm Disc -Expiration Date 12/26/26 -Product Lot Number [id number] -Percent Used 100 -Bleeding Controlled with Pressure -Treatment Response Procedure Tolerated Well -Debridement - Subq, 1st 20sq cm No -Apply Skin Sub - 1st 25 sq cm - Feet 1 -Epifix 18mm Disc 3 Pain Scale: 0-10 Numeric Is Patient Pain Free? Yes WC - Nurse 3 - General Ulcer D/C NN Start: 04/28/22 10:38 Freq: Status: Active Protocol: Activity Type Activity Date Activity User E-sign Co-sign Detail Recorded Client Recorded Date Recorded By Document 04/28/22 11:33 [facility] [id number] 04/28/22 11:33 [facility] Document 05/12/22 12:20 KR [id number] 05/12/22 12:21 KR 04/28/22 05/12/22 11:33 12:20 Wound Care Nurse 3 #2- R 1ST MET HEAD -Ulcer Cleansing Rinsed/ Irrigated with Saline -Other Dressing EPIFIX -Primary Dressing Covered/Secured with Dry Gauze, Dry Gauze, Secured with Secured with Tape Tape Treatment Response Procedure Tolerated Well Pain Scale: 0-10 Numeric Is Patient Pain Free? Yes Yes WC - Visit Discharge Discharge Condition Stable Stable Ambulatory Status Ambulatory Ambulatory Transportation Private Auto Private Auto Accompanied by Additional Wound Wound debrided: Sub fourth metatarsal Laterality: Right Wound Grade/Stage: Owusu stage I Type of Debridement: Excisional debridement Anesthesia Used: 5% Lidocaine Gel Depth: Down to and including healthy tissue and in the subcutaneous layer Percentage of wound debrided: 100 Instrument Used: - (313 blade) Tissue Removed: Fibrous, devitalized subcutaneous, biofilm, slough Severity: Fat Layer Exposed Amount of bleeding with debridement: Mild Bleeding Controlled with: Compression and gauze Patient tolerated procedure: Patient tolerated procedure well Assessment/Plan Assessment/Plan (1) Non-pressure chronic ulcer of other part of right foot with fat layer exposed: CODE(S): L97.512 - Non-pressure chronic ulcer of other part of right foot with fat layer exposed (2) Non-pressure chronic ulcer of other part of left foot with fat layer exposed: CODE(S): L97.522 - Non-pressure chronic ulcer of other part of left foot with fat layer exposed (3) Diabetes mellitus, type II: CODE(S): E11.9 - Type 2 diabetes mellitus without complications (4) Callus of foot: CODE(S): L84 - Corns and callosities (5) Generalized weakness: CODE(S): R53.1 - Weakness (6) Acute renal insufficiency: CODE(S): N28.9 - Disorder of kidney and ureter, unspecified (7) Parkinsons disease: CODE(S): G20 - Parkinson's disease (8) Parkinson's disease dementia: CODE(S): G20 - Parkinson's disease; F02.80 - Dementia in other diseases classified elsewhere without behavioral disturbance QUALIFIERS: Qualified Code(s): F02.80 - Dementia in other diseases classified elsewhere without behavioral disturbance PLAN: Plan Patient seen and evaluated. Ulceration distal tuft third digit remains healed with some hyperkeratotic tissue.? No signs of infection.? Ulceration caused secondary to pressure via hammertoe deformity.? I debrided callus buildup around the distal tuft of the digit with a 313 blade. Continued offloading of the digit with a crest pad. Sub- fourth metatarsal head right demonstrates more callus tissue buildup versus previous visit this was sharply debrided with a 313 blade.? Upon debridement it is noted a small underlying ulceration measuring 0.4 cm x 0.4 cm x 0.1 cm. No signs of infection. I modified his diabetic insert plantar padding today and attempt to better offload the site. Site dressed with Jaja and dry sterile dressing. He is to change this dressing daily. Debridement of subfirst metatarsal head ulcer of the right foot performed with a 313 blade as noted in the clinical panel above.? Ulceration measures 0.1cm x 0.1cm x 0.1cm. No signs of infection. Offloading pad remains in place to bottom of his diabetic insert of the right foot, this is helping to decrease ulcer size.?I advised the patient to continue to stay off of his feet as much as possible to aid in pressure reduction for healing of this ulcerative site, however I do not believe he is doing this consistently due to ulceration failing to progress and the subdermal hemorrhaging noted today at the subfourth metatarsal callus site.? I applied an epi fix graft #10 to the subfirst metatarsal Adaptic touch and anchored with Steri-Strips. I discussed with the patient to continue to check his feet daily for any signs of wounds or pressure sites which may contribute to wound formation.?He is to remain in the diabetic shoes with inserts for proper offloading of the pressure sites and to not wear house sandals or house slippers or go barefoot.? I reminded them that his wounds are caused secondarily from pressure due to his atrophic fat pad at the forefoot and plantigrade metatarsals creating direct pressure at the forefoot and pressure reduction is the fields to continued healing and prevention or recurrence of wounds. I again stressed the importance of staying off of his feet as much as possible to allow the wounds to reducing pressure and allow for healing. However due to the increased callus tissue buildup and repeat ulceration of his subfourth metatarsal head I feel compliance with proper offloading remains an issue. I discussed the localized signs of infection with the patient's and his today and instructed them if they notice any increased redness around the wound, purulent drainage, malodor, red streaking going up the leg, or if he experiences any nausea, vomiting, fever, chills to go to the emergency department for treatment as these are signs of a progressing infection.? and patient voiced understanding of this. 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 Atrophic fat pad at the forefoot.? Parkinson's disease. ? I answered all the patient's questions.? To return to the wound healing center in 2 weeks or call sooner if the patient has any questions or concerns. Note: [employer] speech recognition equipment operat0r software was used to create portions of this document. Sound-alike and misspelled words, as well as other equipment operat0r errors may be contained in the documentation.
[2022-05-26 09:52] VITALS: BP 127/62; PULSE 64; TEMP 36.2; BMI 21.2
--- NOTE | 2022-05-26 10:17 | PN.PCM_ITS ---
History of Present Illness Date of Service: 05/26/22 Chief Complaint: Foot wound History of Wound: 75-year-old male who was referred for evaluation relative to wounds on his feet. He has apparently been under the care of Dr. Cheung, podiatric specialist, recently, though no such medical records are available. According to the patient, and his , the patient was evaluated in Dr. Cheung's office, and the calluses on the plantar aspect of both feet were scraped. Bleeding was encountered. The patient indicates that he was then referred for further evaluation and management at the [facility]. The patient's pre-existing medical problems include diabetes mellitus, hyperlipidemia, Parkinson's disease, hypertension, debility, and generalized weakness. Subjective Subjective This 76-year-old male presents for follow-up to the wound care center with a right foot subfirst metatarsal ulceration. ?He is accompanied by his today. He and his state that he is remaining compliant in wearing diabetic shoes with protective inserts with plantar offloading padding.?He denies any constitutional symptoms today.? He has no other complaints today. Objective Data Objective Data Vital Signs: Vital Signs Temp Pulse Resp BP O2 Del Method 97.2 F L 64 16 127/62 H Room Air 05/26/22 09:52 05/26/22 09:52 04/28/22 10:38 05/26/22 09:52 04/28/22 10:38 Oxygen Delivery Method Room Air Weight: 67.132 kg Body Mass Index (BMI) 21.2 Physical Exam Const alert, oriented x3 and no apparent distress General Appearance: cooperative HEENT normocephalic Eyes General Eye: normal appearance of both eyes Neck General: normal visual inspection Lymph Lymphatic: no lymphadenopathy noted and no lymphedema noted Resp normal respiratory effort Cardio regular rate and regular rhythm Extremity normal capillary refill, no joint enlargement, no calf tenderness and no pedal edema Skin no rashes or lesions noted, skin turgor normal and no jaundice Skin Narrative: Skin is thin/atrophic bilaterally Fat pad atrophy bilaterally to the forefoot Wound Narrative: Right foot: Sub first metatarsal ulceration measures 0.4 cm x 0.5 cm x 0.1 cm.? Ulcerative base demonstrates healthy granular tissue with surrounding hyperkeratotic tissue.? No signs of infection. Left foot: Hyperkeratotic tissue distal tuft of 3rd digit secondary to hammertoe deformity. Site is healed and offloaded with padding. Neuro oriented x3 and moves all extremities Debridement Note Debridement Note Wound debrided: Sub first metatarsal Laterality: Right Wound Grade/Stage: Ow[place]u stage I Type of Debridement: Excisional debridement Anesthesia Used: 5% Lidocaine Gel Depth: Down to and including healthy tissue and in the subcutaneous layer Percentage of wound debrided: 100 Instrument Used: - (313 blade) Tissue Removed: Fibrous, devitalized subcutaneous, biofilm, slough Severity: Fat Layer Exposed Amount of bleeding with debridement: Mild Bleeding Controlled with: Compression and gauze Patient tolerated procedure: Patient tolerated procedure well Post-Debridement Measurements and Additional Note: Post-Debridement Measurements/Treatment - Nurse 1 - General Ulcer Assessment Start: 04/28/22 10:38 Freq: Status: Active Protocol: TAMIR Activity Type Activity Date Activity User E-sign Co-sign Detail Recorded Client Recorded Date Recorded By Document 04/28/22 10:38 [facility] [id number] 04/28/22 10:49 [facility] Document 05/12/22 10:40 KR [id number] 05/12/22 10:42 Document 05/26/22 09:52 KR [id number] 05/26/22 09:53 KR 04/28/22 05/12/22 05/26/22 10:38 10:40 09:52 - Today's Visit Information Type of service Follow-up Visit Follow-up Visit Follow-up Visit (Physician/SENIOR TRIAL ATTORNEY (Physician/SENIOR TRIAL ATTORNEY (Physician/SENIOR TRIAL ATTORNEY ) ) ) Arrival Mode Ambulatory Ambulatory Ambulatory Transfer Assistance None Accompanied by Patient Identification Verified (Name & Yes Yes Yes ) Patient Requires Transmission-Based No No Precautions Safety Precautions NA Height and Weight Body Mass Index (BMI) 21.2 21.2 21.2 BMI Classification Normal Normal Normal Vital Signs Temperature (97.8 F-99.1 F) 95.9 F L 96.3 F L 97.2 F L Temperature Source Temporal Temporal Temporal Pulse Rate (60-100) 79 78 64 Pulse Location Monitor Monitor Monitor Respiratory Rate (12-18) 16 Respiratory rate source Observation Oxygen Delivery Method Room Air Blood Pressure (90/60-120/80) 123/66 H 124/78 H 127/62 H Blood Pressure Mean (mm Hg) 85 93 83 Source Monitor Monitor Monitor Position Sitting Semi-Fowlers Blood Pressure Location Right Arm Right Arm History Since Last Visit- (Skip if this is Patient's initial visit) Have you changed medications since your No No No last visit? Any new allergies or adverse reactions No No No Had a fall/change in ADL's that may No No No increase risk of falls Signs or symptoms of abuse and/or No No No neglect since last visit Have you been in the hospital since your No No No last visit? Has dressing in place as prescribed Yes Yes Yes Has compression in place as prescribed N/A N/A No Has offloadiing in place as prescribed N/A N/A N/A Experienced any changes in pain level or No No No management Left Footwear Regular Shoe Regular Shoe Regular Shoe Right Footwear Regular Shoe Regular Shoe Regular Shoe Pain Scale: 0-10 Numeric Is Patient Pain Free? Yes Yes Yes WC - Nurse 1 - General Ulcer Measurement Start: 04/28/22 10:38 Freq: Status: Active Protocol: Activity Type Activity Date Activity User E-sign Co-sign Detail Recorded Client Recorded Date Recorded By Document 04/28/22 10:38 [facility] [id number] 04/28/22 10:49 [facility] Document 05/12/22 10:40 KR [id number] 05/12/22 10:42 KR Document 05/26/22 09:52 KR [id number] 05/26/22 09:53 KR 04/28/22 05/12/22 05/26/22 10:38 10:40 09:52 Wound Center Nurse 1 #2- R 1ST MET HEAD -Combined with other wound No No -Current Size (cm) - Length 0.3 0.2 0.2 -Current Size (cm) - Width 0.4 0.2 0.2 -Current Size (cm) - Depth 0.4 0.1 0.2 -Total Square Cm 0.12 0.04 0.04 -Date of Last Picture (Recall this 04/28/22 field) -Photo Taken Yes No -Epithelialization None Present None Present -Tunneling No No -Undermining/Tunneling No No -Circular Undermining No No -Change in Wound Grade/Stage No -Exudate Amt Small Small Medium -Exudate Type Serous Serosanguineous Serosanguineous -Wound Margin Distinct, Distinct, Distinct, Outline Outline Outline Attached Attached Attached -Granulation Amt Small (1-33%) Medium (34-66%) Medium (34-66%) -Granulation Quality [place] -Slough/Fibrin Yes Yes -Necrosis Amt Medium (34-66%) None Present (0 Small (1-33%) %) -Necrotic Tissue Type Adherent Slough Adherent Slough -Structure Exposed N/A -Texture (Kathya-wound Skin Appearance) Assessed,Callus Assessed, Assessed,Callus Scarring -Moisture (Kathya-wound Skin Appearance) Assessed,Dry/ No Abnormality, No Abnormality, Scaly Assessed Assessed -Color (Kathya-wound Skin Appearance) Assessed No Abnormality, No Abnormality, Assessed Assessed -Temperature (Kathya-wound Skin No Abnormality No Abnormality No Abnormality Appearance) (Pt Warm) (Pt Warm) (Pt Warm) -Tenderness on Palpation (Kathya-wound No No No Skin Appearance) -Ulcer Cleansing Soap and Water Rinsed/ Rinsed/ Irrigated with Irrigated with Saline Saline -Foul Odor after Cleansing No No No -Anesthetic Used 5% Lidocaine 5% Lidocaine 5% Lidocaine Gel Gel Gel WC - Nurse 2 - General Ulcer CM Notes Start: 04/28/22 10:38 Freq: Status: Active Protocol: Activity Type Activity Date Activity User E-sign Co-sign Detail Recorded Client Recorded Date Recorded By Document 04/28/22 12:43 PL [id number] 04/28/22 12:44 PL Document 05/12/22 13:43 PL [id number] 05/12/22 13:45 PL 04/28/22 05/12/22 12:43 13:43 Wound Center Nurse 2 #2- R 1ST MET HEAD -Time 11:14 11:37 -Correct Patient Yes Yes -Correct Side, Site, Position Yes Yes -Correct Procedure Yes Yes -Procedure Performed Yes Yes -Type of Procedure Debridement Debridement -Clinical Debridement Subcutaneous Subcutaneous -Tissue Removed Subcutaneous Subcutaneous -Post Debridement (cm) - Length 0.5 0.2 -Post Debridement (cm) - Width 0.5 0.2 -Post Debridement (cm) - Depth 0.1 0.1 -Total Square (Post) (cm) 0.25 0.04 -Area of Debridement (cm) - Length 0.5 0.2 -Area of Debridement (cm) - Width 0.5 0.2 -Total Square (Area) (cm) 0.25 0.04 -Tunneling No No -Undermining/Tunneling No No -Circular Undermining No No -Wound/Ulcer Outcome Not Healed Not Healed -Ulcer Cleansing Rinsed/ Rinsed/ Irrigated with Irrigated with Saline Saline -Foul Odor after Cleansing No No -Bioengineered Tissue Yes Yes -Type of Bioengineered Tissue Epifix 18mm Epifix 18mm Disc Disc -Expiration Date 12/26/26 01/26/27 -Product Lot Number [id number] -Percent Used 100 100 -Bleeding Controlled with Pressure Pressure -Treatment Response Procedure Procedure Tolerated Well Tolerated Well -Debridement - Subq, 1st 20sq cm No No -Apply Skin Sub - 1st 25 sq cm - Feet 1 1 -Epifix 18mm Disc 3 3 Pain Scale: 0-10 Numeric Is Patient Pain Free? Yes Yes - Nurse 3 - General Ulcer D/C NN Start: 04/28/22 10:38 Freq: Status: Active Protocol: Activity Type Activity Date Activity User E-sign Co-sign Detail Recorded Client Recorded Date Recorded By Document 04/28/22 11:33 [facility] [id number] 04/28/22 11:33 [facility] Document 05/12/22 12:20 [id number] 05/12/22 12:21 KR 04/28/22 05/12/22 11:33 12:20 Wound Care Nurse 3 #2- R 1ST MET HEAD -Ulcer Cleansing Rinsed/ Irrigated with Saline -Other Dressing EPIFIX -Primary Dressing Covered/Secured with Dry Gauze, Dry Gauze, Secured with Secured with Tape Tape Treatment Response Procedure Tolerated Well Pain Scale: 0-10 Numeric Is Patient Pain Free? Yes Yes - Visit Discharge Discharge Condition Stable Stable Ambulatory Status Ambulatory Ambulatory Transportation Private Auto Private Auto Accompanied by Assessment/Plan Assessment/Plan (1) Non-pressure chronic ulcer of other part of right foot with fat layer exposed: CODE(S): L97.512 - Non-pressure chronic ulcer of other part of right foot with fat layer exposed (2) Non-pressure chronic ulcer of other part of left foot with fat layer exposed: CODE(S): L97.522 - Non-pressure chronic ulcer of other part of left foot with fat layer exposed (3) Diabetes mellitus, type II: CODE(S): E11.9 - Type 2 diabetes mellitus without complications (4) Callus of foot: CODE(S): L84 - Corns and callosities (5) Generalized weakness: CODE(S): R53.1 - Weakness (6) Acute renal insufficiency: CODE(S): N28.9 - Disorder of kidney and ureter, unspecified (7) Parkinsons disease: CODE(S): G20 - Parkinson's disease (8) Parkinson's disease dementia: CODE(S): G20 - Parkinson's disease; F02.80 - Dementia in other diseases classified elsewhere without behavioral disturbance QUALIFIERS: Qualified Code(s): F02.80 - Dementia in other diseases classified elsewhere without behavioral disturbance PLAN: Plan Patient seen and evaluated. Ulceration distal tuft third digit remains healed with some hyperkeratotic tissue.? No signs of infection.? Ulceration caused secondary to pressure via hammertoe deformity.? I debrided callus buildup around the distal tuft of the digit with a 313 blade. Continued offloading of the digit with a crest pad. Sub- fourth metatarsal head right demonstrates more callus tissue buildup versus previous visit this was sharply debrided with a 313 blade.? Site is currently healed. No signs of infection. Debridement of subfirst metatarsal head ulcer of the right foot performed with a 313 blade as noted in the clinical panel above.? Ulceration measures 0.4 cm x 0.5 cm x 0.1 cm. No signs of infection. Offloading pad remains in place to bottom of his diabetic insert of the right foot, this is helping to decrease ulcer size.?I advised the patient to continue to stay off of his feet as much as possible to aid in pressure reduction for healing of this ulcerative site, however I do not believe he is doing this consistently due to ulceration failing to progress with increase in size noted and the subdermal hemorrhaging noted today at the subfourth metatarsal callus site.? Jaja applied to the subfirst metatarsal wound and dressed with dry sterile dressing. Dressings to be changed daily I will consider total contact cast to enforce compliance at next visit. I discussed with the patient to continue to check his feet daily for any signs of wounds or pressure sites which may contribute to wound formation.?He is to remain in the diabetic shoes with inserts for proper offloading of the pressure sites and to not wear house sandals or house slippers or go barefoot.? I reminded them that his wounds are caused secondarily from pressure due to his atrophic fat pad at the forefoot and plantigrade metatarsals creating direct pressure at the forefoot and pressure reduction is the fields to continued healing and prevention or recurrence of wounds. I again stressed the importance of staying off of his feet as much as possible to allow the wounds to reducing pressure and allow for healing. However due to the increased callus tissue buildup and repeat ulceration of his subfourth metatarsal head I feel compliance with proper offloading remains an issue. I discussed the localized signs of infection with the patient's and his today and instructed them if they notice any increased redness around the wound, purulent drainage, malodor, red streaking going up the leg, or if he experiences any nausea, vomiting, fever, chills to go to the emergency department for treatment as these are signs of a progressing infection.? and patient voiced understanding of this. 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 Atrophic fat pad at the forefoot.? Parkinson's disease. ? I answered all the patient's questions.? To return to the wound healing center in 1 week or call sooner if the patient has any questions or concerns. Note: [employer] speech recognition mosaicist software was used to create portions of this document. Sound-alike and misspelled words, as well as other mosaicist errors may be contained in the documentation.
== END 2022-05-27 23:59 | disposition home or self-care (01) ==
LOC: WC 09:30
PROVIDERS: PCP Nurse Practitioner Family; Visit Provider Student in an Organized Health Care Education/Training Program
DX: E11.621 Type 2 diabetes mellitus with foot ulcer (principal); L97.512 Non-pressure chronic ulcer of other part of right foot with fat layer exposed; G31.83 Neurocognitive disorder with Lewy bodies; F02.80 Dementia in other diseases classified elsewhere, unspecified severity, without behavioral disturbance, psychotic disturbance, mood disturbance, and anxiety; R53.81 Other malaise; I10 Essential (primary) hypertension; E78.5 Hyperlipidemia, unspecified; R53.1 Weakness; L84 Corns and callosities
CPT/HCPCS: 11042; 15275; Q4186

== ENCOUNTER 2022-06-23 10:00 | Outpatient (RCR) | payer MEDICARE, OTHER, SELFPAY ==
[2022-05-28 00:58] VITALS: BP 127/62; PULSE 64; RESP 16; TEMP 36.2; BMI 21.2
[2022-06-02 10:05] VITALS: BP 116/75; PULSE 87; TEMP 36.3; BMI 21.2
--- NOTE | 2022-06-02 10:16 | PCM.WC.PN ---
History of Present Illness Date of Service: 06/02/22 Chief Complaint: Foot wound History of Wound: 75-year-old male who was referred for evaluation relative to wounds on his feet. He has apparently been under the care of Dr. Cheung, podiatric specialist, recently, though no such medical records are available. According to the patient, and his , the patient was evaluated in Dr. Cheung's office, and the calluses on the plantar aspect of both feet were scraped. Bleeding was encountered. The patient indicates that he was then referred for further evaluation and management at the [facility]. The patient's pre-existing medical problems include diabetes mellitus, hyperlipidemia, Parkinson's disease, hypertension, debility, and generalized weakness. Subjective Subjective This 76-year-old male presents for follow-up to the wound care center with a right foot subfirst metatarsal ulceration. ?He is accompanied by his today. He and his state that he is remaining compliant in wearing diabetic shoes with protective inserts with plantar offloading padding.?He denies any constitutional symptoms today.? He has no other complaints today. Objective Data Objective Data Vital Signs: Vital Signs Temp Pulse Resp BP 97.4 F L 87 16 116/75 06/02/22 10:05 06/02/22 10:05 05/28/22 00:58 06/02/22 10:05 Weight: 67.132 kg Body Mass Index (BMI) 21.2 Physical Exam Const alert, oriented x3 and no apparent distress General Appearance: cooperative HEENT normocephalic Eyes General Eye: normal appearance of both eyes Neck General: normal visual inspection Lymph Lymphatic: no lymphadenopathy noted and no lymphedema noted Resp normal respiratory effort Cardio regular rate and regular rhythm Skin no rashes or lesions noted, skin turgor normal and no jaundice Skin Narrative: Skin is thin/atrophic bilaterally Fat pad atrophy bilaterally to the forefoot Wound Narrative: Right foot: Sub first metatarsal ulceration measures 0.5 cm x 0.5 cm x 0.1 cm.? Ulcerative base demonstrates healthy granular tissue with surrounding hyperkeratotic tissue.? No signs of infection. Left foot: Hyperkeratotic tissue distal tuft of 3rd digit secondary to hammertoe deformity. Site is healed and offloaded with padding. Neuro moves all extremities Debridement Note Debridement Note Post-Debridement Measurements and Additional Note: Post-Debridement Measurements/Treatment WC - Nurse 1 - General Ulcer Assessment Start: 06/02/22 10:04 Freq: Status: Active Protocol: TAMIR Activity Type Activity Date Activity User E-sign Co-sign Detail Recorded Client Recorded Date Recorded By Document 06/02/22 10:05 AMILCAR [id number] 06/02/22 10:08 AMILCAR 06/02/22 10:05 WC - Today's Visit Information Type of service Follow-up Visit (Physician/DEPUTY JAILER ) Arrival Mode Ambulatory Patient Identification Verified (Name & Yes ) Height and Weight Body Mass Index (BMI) 21.2 BMI Classification Normal Vital Signs Temperature (97.8 F-99.1 F) 97.4 F L Temperature Source Temporal Pulse Rate (60-100) 87 Pulse Location Monitor Blood Pressure (90/60-120/80) 116/75 Blood Pressure Mean (mm Hg) 88 Source Monitor Position Sitting Blood Pressure Location Left Arm History Since Last Visit- (Skip if this is Patient's initial visit) Have you changed medications since your No last visit? Any new allergies or adverse reactions No Had a fall/change in ADL's that may No increase risk of falls Signs or symptoms of abuse and/or No neglect since last visit Has dressing in place as prescribed Yes Has offloadiing in place as prescribed N/A Experienced any changes in pain level or No management Left Footwear Regular Shoe Right Footwear Regular Shoe Pain Scale: 0-10 Numeric Is Patient Pain Free? Yes REECE - Nurse 1 - General Ulcer Measurement Start: 06/02/22 10:04 Freq: Status: Active Protocol: Activity Type Activity Date Activity User E-sign Co-sign Detail Recorded Client Recorded Date Recorded By Document 06/02/22 10:05 AMILCAR [id number] 06/02/22 10:08 AMILCAR 06/02/22 10:05 Wound Center Nurse 1 #2- R 1ST MET HEAD -Current Size (cm) - Length 0.2 -Current Size (cm) - Width 0.2 -Current Size (cm) - Depth 0.1 -Total Square Cm 0.04 -Wound Margin Distinct, Outline Attached -Granulation Amt Small (1-33%) -Granulation Quality [place] -Necrosis Amt None Present (0 %) -Texture (Kathya-wound Skin Appearance) Assessed,Callus ,Scarring -Moisture (Kathya-wound Skin Appearance) No Abnormality, Assessed -Color (Kathya-wound Skin Appearance) No Abnormality, Assessed -Temperature (Kathya-wound Skin No Abnormality Appearance) (Pt Warm) -Tenderness on Palpation (Kathya-wound No Skin Appearance) -Ulcer Cleansing Rinsed/ Irrigated with Saline -Foul Odor after Cleansing No -Anesthetic Used 5% Lidocaine Gel Assessment/Plan Assessment/Plan (1) Non-pressure chronic ulcer of other part of right foot with fat layer exposed: CODE(S): L97.512 - Non-pressure chronic ulcer of other part of right foot with fat layer exposed (2) Non-pressure chronic ulcer of other part of left foot with fat layer exposed: CODE(S): L97.522 - Non-pressure chronic ulcer of other part of left foot with fat layer exposed (3) Diabetes mellitus, type II: CODE(S): E11.9 - Type 2 diabetes mellitus without complications (4) Callus of foot: CODE(S): L84 - Corns and callosities (5) Generalized weakness: CODE(S): R53.1 - Weakness (6) Acute renal insufficiency: CODE(S): N28.9 - Disorder of kidney and ureter, unspecified (7) Parkinsons disease: CODE(S): G20 - Parkinson's disease (8) Parkinson's disease dementia: CODE(S): G20 - Parkinson's disease; F02.80 - Dementia in other diseases classified elsewhere, unspecified severity, without behavioral disturbance, psychotic disturbance, mood disturbance, and anxiety QUALIFIERS: Qualified Code(s): F02.80 - Dementia in other diseases classified elsewhere without behavioral disturbance PLAN: Plan Patient seen and evaluated. Ulceration distal tuft third digit remains healed with some hyperkeratotic tissue.? No signs of infection.? Ulceration caused secondary to pressure via hammertoe deformity.? I debrided callus buildup around the distal tuft of the digit with a 313 blade. Continued offloading of the digit with a crest pad. Sub- fourth metatarsal head right demonstrates more callus tissue buildup versus previous visit this was sharply debrided with a 313 blade.? Site is currently healed.? No signs of infection. Debridement of subfirst metatarsal head ulcer of the right foot performed with a 313 blade as noted in the clinical panel above.? Ulceration measures 0.5 cm x 0.5 cm x 0.1 cm. No signs of infection. Offloading pad remains in place to bottom of his diabetic insert of the right foot, this is helping to decrease ulcer size.?I advised the patient to continue to stay off of his feet as much as possible to aid in pressure reduction for healing of this ulcerative site, however I do not believe he is doing this consistently due to ulceration failing to progress with increase in size noted and the subdermal hemorrhaging noted today at the subfourth metatarsal callus site.? Jaja applied to the subfirst metatarsal wound and dressed with dry sterile dressing.? Dressings to be changed daily. Total contact cast to be applied at next visit to enforce compliance. I discussed with the patient to continue to check his feet daily for any signs of wounds or pressure sites which may contribute to wound formation.?He is to remain in the diabetic shoes with inserts for proper offloading of the pressure sites and to not wear house sandals or house slippers or go barefoot.? I reminded them that his wounds are caused secondarily from pressure due to his atrophic fat pad at the forefoot and plantigrade metatarsals creating direct pressure at the forefoot and pressure reduction is the fields to continued healing and prevention or recurrence of wounds.? I again stressed the importance of staying off of his feet as much as possible to allow the wounds to reducing pressure and allow for healing.? However due to the increased callus tissue buildup and repeat ulceration of his subfourth metatarsal head I feel compliance with proper offloading remains an issue. I discussed the localized signs of infection with the patient's and his today and instructed them if they notice any increased redness around the wound, purulent drainage, malodor, red streaking going up the leg, or if he experiences any nausea, vomiting, fever, chills to go to the emergency department for treatment as these are signs of a progressing infection.? and patient voiced understanding of this. 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 Atrophic fat pad at the forefoot.? Parkinson's disease. ? I answered all the patient's questions.? To return to the wound healing center in 1 week or call sooner if the patient has any questions or concerns. Note: [employer] speech recognition change management administrator software was used to create portions of this document. Sound-alike and misspelled words, as well as other change management administrator errors may be contained in the documentation.
--- NOTE | 2022-06-16 10:00 | PCM.WC.PN ---
History of Present Illness Date of Service: 06/16/22 Chief Complaint: Foot wound History of Wound: 75-year-old male who was referred for evaluation relative to wounds on his feet. He has apparently been under the care of Dr. Cheung, podiatric specialist, recently, though no such medical records are available. According to the patient, and his , the patient was evaluated in Dr. Cheung's office, and the calluses on the plantar aspect of both feet were scraped. Bleeding was encountered. The patient indicates that he was then referred for further evaluation and management at the [facility]. The patient's pre-existing medical problems include diabetes mellitus, hyperlipidemia, Parkinson's disease, hypertension, debility, and generalized weakness. Subjective Subjective This 76-year-old male presents for follow-up to the wound care center with a right foot subfirst metatarsal ulceration. ?He is accompanied by his today. He and his state that he is remaining compliant in wearing diabetic shoes with protective inserts with plantar offloading padding. feels his wound is improving.?He denies any constitutional symptoms today.? He has no other complaints today. Objective Data Objective Data Vital Signs: Vital Signs Temp Pulse Resp BP 97.4 F L 87 16 116/75 06/02/22 10:05 06/02/22 10:05 05/28/22 00:58 06/02/22 10:05 Weight: 67.132 kg Body Mass Index (BMI) 21.2 Physical Exam Const alert, oriented x3 and no apparent distress General Appearance: cooperative HEENT normocephalic Eyes General Eye: normal appearance of both eyes Neck General: normal visual inspection Lymph Lymphatic: no lymphadenopathy noted and no lymphedema noted Resp normal respiratory effort Cardio regular rate and regular rhythm Skin no rashes or lesions noted, skin turgor normal and no jaundice Skin Narrative: Skin is thin/atrophic bilaterally Fat pad atrophy bilaterally to the forefoot Wound Narrative: Right foot: Sub first metatarsal ulceration measures 0.3 cm x 0.4 cm x 0.1 cm.? Ulcerative base demonstrates healthy granular tissue with surrounding hyperkeratotic tissue.? No signs of infection. Left foot: Hyperkeratotic tissue distal tuft of 3rd digit secondary to hammertoe deformity. Site is healed and offloaded with padding. Neuro moves all extremities Debridement Note Debridement Note Wound debrided: Sub first metatarsal Laterality: Right Wound Grade/Stage: [place] stage I Type of Debridement: Excisional debridement Anesthesia Used: 5% Lidocaine Gel Depth: Down to and including healthy tissue and in the subcutaneous layer Percentage of wound debrided: 100 Instrument Used: 3mm curette Tissue Removed: Fibrous, devitalized subcutaneous, biofilm, slough Severity: Fat Layer Exposed Amount of bleeding with debridement: Mild Bleeding Controlled with: Compression and gauze Patient tolerated procedure: Patient tolerated procedure well Post-Debridement Measurements and Additional Note: Post-Debridement Measurements/Treatment - Nurse 1 - General Ulcer Assessment Start: 06/02/22 10:04 Freq: Status: Active Protocol: TAMIR Activity Type Activity Date Activity User E-sign Co-sign Detail Recorded Client Recorded Date Recorded By Document 06/02/22 10:05 AMILCAR [id number] 06/02/22 10:08 AMILCAR 06/02/22 10:05 REECE Day Today's Visit Information Type of service Follow-up Visit (Physician/[employer] LEADER ) Arrival Mode Ambulatory Patient Identification Verified (Name & Yes ) Height and Weight Body Mass Index (BMI) 21.2 BMI Classification Normal Vital Signs Temperature (97.8 F-99.1 F) 97.4 F L Temperature Source Temporal Pulse Rate (60-100) 87 Pulse Location Monitor Blood Pressure (90/60-120/80) 116/75 Blood Pressure Mean (mm Hg) 88 Source Monitor Position Sitting Blood Pressure Location Left Arm History Since Last Visit- (Skip if this is Patient's initial visit) Have you changed medications since your No last visit? Any new allergies or adverse reactions No Had a fall/change in ADL's that may No increase risk of falls Signs or symptoms of abuse and/or No neglect since last visit Has dressing in place as prescribed Yes Has offloadiing in place as prescribed N/A Experienced any changes in pain level or No management Left Footwear Regular Shoe Right Footwear Regular Shoe Pain Scale: 0-10 Numeric Is Patient Pain Free? Yes REECE Day Nurse 1 - General Ulcer Measurement Start: 06/02/22 10:04 Freq: Status: Active Protocol: Activity Type Activity Date Activity User E-sign Co-sign Detail Recorded Client Recorded Date Recorded By Document 06/02/22 10:05 AMILCAR [id number] 06/02/22 10:08 KR 06/02/22 10:05 Wound Center Nurse 1 #2- R 1ST MET HEAD -Current Size (cm) - Length 0.2 -Current Size (cm) - Width 0.2 -Current Size (cm) - Depth 0.1 -Total Square Cm 0.04 -Wound Margin Distinct, Outline Attached -Granulation Amt Small (1-33%) -Granulation Quality [place] -Necrosis Amt None Present (0 %) -Texture (Kathya-wound Skin Appearance) Assessed,Callus ,Scarring -Moisture (Kathya-wound Skin Appearance) No Abnormality, Assessed -Color (Kathya-wound Skin Appearance) No Abnormality, Assessed -Temperature (Kathya-wound Skin No Abnormality Appearance) (Pt Warm) -Tenderness on Palpation (Kathya-wound No Skin Appearance) -Ulcer Cleansing Rinsed/ Irrigated with Saline -Foul Odor after Cleansing No -Anesthetic Used 5% Lidocaine Gel WC - Nurse 2 - General Ulcer CM Notes Start: 06/02/22 10:04 Freq: Status: Active Protocol: Activity Type Activity Date Activity User E-sign Co-sign Detail Recorded Client Recorded Date Recorded By Document 06/02/22 12:40 PL [id number] 06/02/22 12:40 PL 06/02/22 12:40 Wound Center Nurse 2 -Time 11:01 -Correct Patient Yes -Correct Side, Site, Position Yes -Correct Procedure Yes -Procedure Performed Yes -Type of Procedure Debridement -Clinical Debridement Subcutaneous -Tissue Removed Subcutaneous -Post Debridement (cm) - Length 0.5 -Post Debridement (cm) - Width 0.5 -Post Debridement (cm) - Depth 0.1 -Total Square (Post) (cm) 0.25 -Area of Debridement (cm) - Length 0.5 -Area of Debridement (cm) - Width 0.5 -Total Square (Area) (cm) 0.25 -Tunneling No -Undermining/Tunneling No -Circular Undermining No -Wound/Ulcer Outcome Not Healed -Ulcer Cleansing Rinsed/ Irrigated with Saline -Foul Odor after Cleansing No -Bioengineered Tissue No -Bleeding Controlled with Pressure -Treatment Response Procedure Tolerated Well -Debridement - Subq, 1st 20sq cm Yes Pain Scale: 0-10 Numeric Is Patient Pain Free? Yes WC - Nurse 3 - General Ulcer D/C NN Start: 06/02/22 10:04 Freq: Status: Active Protocol: Activity Type Activity Date Activity User E-sign Co-sign Detail Recorded Client Recorded Date Recorded By Document 06/02/22 11:11 SC [id number] 06/02/22 11:12 SC 06/02/22 11:11 Wound Care Nurse 3 #2- R 1ST MET HEAD -Ulcer Cleansing Rinsed/ Irrigated with Saline -Primary Dressing Applied Promogran -Primary Dressing Covered/Secured with Dry Gauze, Secured with Tape -Promogran 1 Pain Scale: 0-10 Numeric Is Patient Pain Free? Yes WC - Visit Discharge Discharge Condition Stable Ambulatory Status Ambulatory Transportation Private Auto Medication Reconcilliation completed & No provided to patient/care provider Clinical Summary of Care Provided Yes Assessment/Plan Assessment/Plan (1) Non-pressure chronic ulcer of other part of right foot with fat layer exposed: CODE(S): L97.512 - Non-pressure chronic ulcer of other part of right foot with fat layer exposed (2) Non-pressure chronic ulcer of other part of left foot with fat layer exposed: CODE(S): L97.522 - Non-pressure chronic ulcer of other part of left foot with fat layer exposed (3) Diabetes mellitus, type II: CODE(S): E11.9 - Type 2 diabetes mellitus without complications (4) Callus of foot: CODE(S): L84 - Corns and callosities (5) Generalized weakness: CODE(S): R53.1 - Weakness (6) Acute renal insufficiency: CODE(S): N28.9 - Disorder of kidney and ureter, unspecified (7) Parkinsons disease: CODE(S): G20 - Parkinson's disease (8) Parkinson's disease dementia: CODE(S): G20 - Parkinson's disease; F02.80 - Dementia in other diseases classified elsewhere, unspecified severity, without behavioral disturbance, psychotic disturbance, mood disturbance, and anxiety QUALIFIERS: Qualified Code(s): F02.80 - Dementia in other diseases classified elsewhere without behavioral disturbance PLAN: Plan Patient seen and evaluated. Ulceration distal tuft third digit remains healed with some hyperkeratotic tissue.? No signs of infection.? Ulceration caused secondary to pressure via hammertoe deformity.?Continued offloading of the digit with a crest pad. Sub- fourth metatarsal head right demonstrates callus tissue buildup this was sharply debrided with a 313 blade.?Site is currently healed.? No signs of infection. Debridement of subfirst metatarsal head ulcer of the right foot performed with a 3mm curette as noted in the clinical panel above.? Ulceration measures 0.3 cm x 0.4 cm x 0.1 cm. No signs of infection. Offloading pad remains in place to bottom of his diabetic insert of the right foot, this is helping to decrease ulcer size.?I advised the patient to continue to stay off of his feet as much as possible to aid in pressure reduction for healing of this ulcerative site, however I do not believe he is doing this consistently due to ulceration failing to progress. Jaja applied to the subfirst metatarsal wound and dressed with dry sterile dressing. Offloading: Total contact cast applied to enforce compliance today. Total contact cast was applied today according to standard protocol (Right) in a well-padded in neutral position after verbal consent was obtained. He will keep this clean, dry, and intact.?He was still encouraged not to do routine walking with this device to optimize healing. If he experiences problems with the cast he may return to have removed. I discussed with the patient to continue to check his feet daily for any signs of wounds or pressure sites which may contribute to wound formation.?He is to remain in the diabetic shoes with inserts for proper offloading of the pressure sites and to not wear house sandals or house slippers or go barefoot.? I reminded them that his wounds are caused secondarily from pressure due to his atrophic fat pad at the forefoot and plantigrade metatarsals creating direct pressure at the forefoot and pressure reduction is the fields to continued healing and prevention or recurrence of wounds.? I again stressed the importance of staying off of his feet as much as possible to allow the wounds to reducing pressure and allow for healing.? However due to the increased callus tissue buildup and failure to progress, I feel compliance with proper offloading remains an issue. I discussed the localized signs of infection with the patient's and his today and instructed them if they notice any increased redness around the wound, purulent drainage, malodor, red streaking going up the leg, or if he experiences any nausea, vomiting, fever, chills to go to the emergency department for treatment as these are signs of a progressing infection.? and patient voiced understanding of this. The following work up and care recommendations were made: Dressing: Jaja dry sterile dressing. TCC applied to Right lower extremity Wash: Do not get wet Tissue growth optimization: Jaja Offload: Diabetic shoe with inserts and plantar offloading padding left, TCC right. 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 Atrophic fat pad at the forefoot.? Parkinson's disease. ? I answered all the patient's questions.? To return to the wound healing center in 1 week or call sooner if the patient has any questions or concerns. Note: [employer] speech recognition fire watchman software was used to create portions of this document. Sound-alike and misspelled words, as well as other fire watchman errors may be contained in the documentation.
[2022-06-16 10:14] VITALS: BP 107/61; PULSE 76; TEMP 36.4; BMI 21.2
[2022-06-23 10:03] VITALS: BP 115/61; PULSE 70; RESP 16; TEMP 36.2; BMI 21.2
--- NOTE | 2022-06-23 13:20 | PN.PCM_ITS ---
History of Present Illness Date of Service: 06/23/22 Chief Complaint: Foot wound History of Wound: 75-year-old male who was referred for evaluation relative to wounds on his feet. He has apparently been under the care of Dr. Cheung, podiatric specialist, recently, though no such medical records are available. According to the patient, and his , the patient was evaluated in Dr. Cheung's office, and the calluses on the plantar aspect of both feet were scraped. Bleeding was encountered. The patient indicates that he was then referred for further evaluation and management at the [facility]. The patient's pre-existing medical problems include diabetes mellitus, hyperlipidemia, Parkinson's disease, hypertension, debility, and generalized weakness. Progress of Wound: Courtesy visit for Dr. Gomez. Here with his for management of chronic right foot ulcer. Had a total contact cast applied at his last visit however his states that he was unsteady with it. He is a fall risk. Objective Data Objective Data Vital Signs: Vital Signs Temp Pulse Resp BP O2 Del Method 97.2 F L 70 16 115/61 Room Air 06/23/22 10:03 06/23/22 10:03 06/23/22 10:03 06/23/22 10:03 06/23/22 10:03 Oxygen Delivery Method Room Air Weight: 148 lb Body Mass Index (BMI) 21.2 Charges/Coding Procedures Integumentary 111xxx-113xx: 18552 Betty subq tissue 20 sq cm/< Physical Exam Const alert and no apparent distress General Appearance: cooperative HEENT normocephalic Eyes General Eye: normal appearance of both eyes Neck General: normal visual inspection Lymph Lymphatic: no lymphadenopathy noted and no lymphedema noted Resp normal respiratory effort Cardio regular rate and regular rhythm Skin no rashes or lesions noted and no jaundice Neuro moves all extremities Debridement Note Debridement Note Wound debrided: Right great toe (plantar) Type of Debridement: Excisional debridement Anesthesia Used: 4% Lidocaine Solution Depth: Down to and including healthy tissue and in the subcutaneous layer Percentage of wound debrided: 100 Instrument Used: 3mm curette and 5mm curette Tissue Removed: Slough and devitalized tissue Severity: Fat Layer Exposed Amount of bleeding with debridement: Mild Bleeding Controlled with: Pressure Patient tolerated procedure: Patient tolerated procedure well Post-Debridement Measurements and Additional Note: Post-Debridement Measurements/Treatment WC - Nurse 1 - General Ulcer Assessment Start: 06/02/22 10:04 Freq: Status: Active Protocol: TAMIR Activity Type Activity Date Activity User E-sign Co-sign Detail Recorded Client Recorded Date Recorded By Document 06/02/22 10:05 AMILCAR [id number] 06/02/22 10:08 KR Document 06/16/22 10:14 KR [id number] 06/16/22 10:15 KR Document 06/23/22 10:03 [facility] [id number] 06/23/22 10:10 BMF 06/02/22 06/16/22 06/23/22 10:05 10:14 10:03 - Today's Visit Information Type of service Follow-up Visit Follow-up Visit Follow-up Visit (Physician/[employer] (Physician/[employer] (Physician/[employer] ) ) ) Arrival Mode Ambulatory Ambulatory Ambulatory Transfer Assistance None Accompanied by Patient Identification Verified (Name & Yes Yes Yes ) Patient Requires Transmission-Based No Precautions Height and Weight Body Mass Index (BMI) 21.2 21.2 21.2 BMI Classification Normal Normal Normal Vital Signs Temperature (97.8 F-99.1 F) 97.4 F L 97.6 F L 97.2 F L Temperature Source Temporal Temporal Temporal Pulse Rate (60-100) 87 76 70 Pulse Location Monitor Monitor Monitor Respiratory Rate (12-18) 16 Respiratory rate source Observation Oxygen Delivery Method Room Air Blood Pressure (90/60-120/80) 116/75 107/61 115/61 Blood Pressure Mean (mm Hg) 88 76 79 Source Monitor Monitor Monitor Position Sitting Sitting Sitting Blood Pressure Location Left Arm Right Arm Left Arm History Since Last Visit- (Skip if this is Patient's initial visit) Have you changed medications since your No No No last visit? Any new allergies or adverse reactions No No No Had a fall/change in ADL's that may No No No increase risk of falls Signs or symptoms of abuse and/or No No No neglect since last visit Have you been in the hospital since your No last visit? Has dressing in place as prescribed Yes Yes Yes Has compression in place as prescribed N/A N/A Has offloadiing in place as prescribed N/A N/A Yes Experienced any changes in pain level or No No No management Left Footwear Regular Shoe Regular Shoe Regular Shoe Right Footwear Regular Shoe Regular Shoe Total Contact Cast Pain Scale: 0-10 Numeric Is Patient Pain Free? Yes Yes Yes WC - Nurse 1 - General Ulcer Measurement Start: 06/02/22 10:04 Freq: Status: Active Protocol: Activity Type Activity Date Activity User E-sign Co-sign Detail Recorded Client Recorded Date Recorded By Document 06/02/22 10:05 KR [id number] 06/02/22 10:08 KR Document 06/16/22 10:14 KR [id number] 06/16/22 10:15 KR Document 06/23/22 10:03 [facility] [id number] 06/23/22 10:10 BMF 06/02/22 06/16/22 06/23/22 10:05 10:14 10:03 Wound Center Nurse 1 #2- R 1ST MET HEAD -Combined with other wound No -Current Size (cm) - Length 0.2 0.2 0.7 -Current Size (cm) - Width 0.2 1.1 0.6 -Current Size (cm) - Depth 0.1 0.2 0.4 -Total Square Cm 0.04 0.22 0.42 -Date of Last Picture (Recall this 06/23/22 field) -Photo Taken Yes -Epithelialization None Present -Tunneling No -Undermining/Tunneling Yes -Undermining/Tunneling Starts (O'clock 7 ) -Undermining/Tunneling Ends (O'clock) 2 -Maximum Distance (cm) 0.4 -Circular Undermining No -Exudate Amt Small Medium -Exudate Type Serosanguineous Serosanguineous -Wound Margin Distinct, Distinct, Distinct, Outline Outline Outline Attached Attached Attached -Granulation Amt Small (1-33%) None Present (0 None Present (0 %) %) -Granulation Quality [place] -Slough/Fibrin Yes -Necrosis Amt None Present (0 None Present (0 Large (67-100%) %) %) -Necrotic Tissue Type Adherent Slough -Texture (Kathya-wound Skin Appearance) Assessed,Callus Assessed, Assessed,Callus ,Scarring Scarring ,Scarring -Moisture (Kathya-wound Skin Appearance) No Abnormality, No Abnormality, Assessed,Dry/ Assessed Assessed Scaly -Color (Kathya-wound Skin Appearance) No Abnormality, No Abnormality, Assessed Assessed Assessed -Temperature (Kathya-wound Skin No Abnormality No Abnormality No Abnormality Appearance) (Pt Warm) (Pt Warm) (Pt Warm) -Tenderness on Palpation (Kathya-wound No No No Skin Appearance) -Ulcer Cleansing Rinsed/ Rinsed/ Soap and Water Irrigated with Irrigated with Saline Saline -Foul Odor after Cleansing No No No -Anesthetic Used 5% Lidocaine 5% Lidocaine 5% Lidocaine Gel Gel Gel WC - Nurse 2 - General Ulcer CM Notes Start: 06/02/22 10:04 Freq: Status: Active Protocol: Activity Type Activity Date Activity User E-sign Co-sign Detail Recorded Client Recorded Date Recorded By Document 06/02/22 12:40 PL [id number] 06/02/22 12:40 PL Document 06/16/22 13:24 PL [id number] 06/16/22 13:25 PL Document 06/23/22 10:28 MW [id number] 06/23/22 10:43 MW 06/02/22 06/16/22 06/23/22 12:40 13:24 10:28 Wound Center Nurse 2 #2- R 1ST MET HEAD -Time 11:01 10:35 10:29 -Correct Patient Yes Yes Yes -Correct Side, Site, Position Yes Yes Yes -Correct Procedure Yes Yes Yes -Procedure Performed Yes Yes Yes -Type of Procedure Debridement Debridement Debridement -Clinical Debridement Subcutaneous Subcutaneous Subcutaneous -Tissue Removed Subcutaneous Subcutaneous Subcutaneous -Post Debridement (cm) - Length 0.5 0.3 0.4 -Post Debridement (cm) - Width 0.5 0.4 0.4 -Post Debridement (cm) - Depth 0.1 0.1 0.6 -Total Square (Post) (cm) 0.25 0.12 0.16 -Area of Debridement (cm) - Length 0.5 0.3 0.4 -Area of Debridement (cm) - Width 0.5 0.4 0.4 -Total Square (Area) (cm) 0.25 0.12 0.16 -Tunneling No No No -Undermining/Tunneling No No No -Circular Undermining No No No -Wound/Ulcer Outcome Not Healed Not Healed Not Healed -Ulcer Cleansing Rinsed/ Rinsed/ Rinsed/ Irrigated with Irrigated with Irrigated with Saline Saline Saline -Foul Odor after Cleansing No No No -Bioengineered Tissue No No No -Bleeding Controlled with Pressure Pressure Pressure -Treatment Response Procedure Procedure Procedure Tolerated Well Tolerated Well Tolerated Well -Offloading No -Type of Offloading Total Contact Cast (TCC) - Right ($) -Debridement - Subq, 1st 20sq cm Yes Yes Yes Pain Scale: 0-10 Numeric Is Patient Pain Free? Yes Yes Yes - Nurse 3 - General Ulcer D/C NN Start: 06/02/22 10:04 Freq: Status: Active Protocol: Activity Type Activity Date Activity User E-sign Co-sign Detail Recorded Client Recorded Date Recorded By Document 06/02/22 11:11 RI [id number] 06/02/22 11:12 MT Document 06/16/22 11:00 KR [id number] 06/16/22 11:00 KR Document 06/23/22 10:57 [facility] [id number] 06/23/22 10:58 [facility] 06/02/22 06/16/22 06/23/22 11:11 11:00 10:57 Wound Care Nurse 3 #2- R 1ST MET HEAD -Ulcer Cleansing Rinsed/ Rinsed/ Irrigated with Irrigated with Saline Saline -Foul Odor after Cleansing No -Primary Dressing Applied Promogran Promogran NonAdherent Contact Layer -Other Dressing PROMOGRAN -Primary Dressing Covered/Secured with Dry Gauze, Dry Gauze Secured with Tape -Promogran 1 1 Right -Other tcc undercasting Treatment Response Procedure Tolerated Well Pain Scale: 0-10 Numeric Is Patient Pain Free? Yes Yes Yes - Visit Discharge Discharge Condition Stable Stable Stable Ambulatory Status Ambulatory Ambulatory Ambulatory Transportation Private Auto Private Auto Private Auto Accompanied by Medication Reconcilliation completed & No provided to patient/care provider Clinical Summary of Care Provided Yes Assessment/Plan Assessment/Plan (1) Non-pressure chronic ulcer of other part of right foot with fat layer exposed: CODE(S): L97.512 - Non-pressure chronic ulcer of other part of right foot with fat layer exposed (2) Diabetes mellitus, type II: CODE(S): E11.9 - Type 2 diabetes mellitus without complications (3) Callus of foot: CODE(S): L84 - Corns and callosities (4) Generalized weakness: CODE(S): R53.1 - Weakness (5) Acute renal insufficiency: CODE(S): N28.9 - Disorder of kidney and ureter, unspecified (6) Parkinsons disease: CODE(S): G20 - Parkinson's disease (7) Parkinson's disease dementia: CODE(S): G20 - Parkinson's disease; F02.80 - Dementia in other diseases classified elsewhere, unspecified severity, without behavioral disturbance, psychotic disturbance, mood disturbance, and anxiety QUALIFIERS: Qualified Code(s): F02.80 - Dementia in other diseases classified elsewhere without behavioral disturbance PLAN: Plan Debridement done as documented above, procedure was well-tolerated. Compared to his last visit, there appears to be increase in the depth of the ulcer. Due to concerns for instability with the TCC, will DC. Reevaluate need for it at next visit with Dr. Gomez. Promogran daily with Adaptic over top. Continue offloading. Continue other chronic care management. Their questions were answered and they were advised to call with any further questions or concerns. Culture was taken due to worsening/increasing depth however, ulcer does not look clinically infected. Follow up in [address] Gomez. This note was generated with Scrip-t dictation software. It may contain incorrect words, spelling, and punctuation that were not noted in checking the note before signing.
== END 2022-06-27 23:59 | disposition home or self-care (01) ==
LOC: WC 10:00
PROVIDERS: PCP Nurse Practitioner Family; Visit Provider Student in an Organized Health Care Education/Training Program
DX: E11.621 Type 2 diabetes mellitus with foot ulcer (principal); G20 Parkinson's disease; L97.512 Non-pressure chronic ulcer of other part of right foot with fat layer exposed; F02.80 Dementia in other diseases classified elsewhere, unspecified severity, without behavioral disturbance, psychotic disturbance, mood disturbance, and anxiety; E78.5 Hyperlipidemia, unspecified; I10 Essential (primary) hypertension; R53.1 Weakness; L84 Corns and callosities
CPT/HCPCS: 11042; 29445; 87070; 87075; 87077; 87186; 87205

== ENCOUNTER 2022-07-14 10:00 | Outpatient (RCR) | payer MEDICARE, OTHER, SELFPAY ==
[2022-06-28 00:21] VITALS: BP 115/61; PULSE 70; RESP 16; TEMP 36.2; BMI 21.2
[2022-06-30 10:14] VITALS: BP 108/65; PULSE 80; TEMP 36.3; BMI 21.2
--- NOTE | 2022-06-30 12:24 | PCM.WC.PN ---
History of Present Illness Date of Service: 06/30/22 Chief Complaint: Foot wound History of Wound: 75-year-old male who was referred for evaluation relative to wounds on his feet. He has apparently been under the care of Dr. Cheung, podiatric specialist, recently, though no such medical records are available. According to the patient, and his , the patient was evaluated in Dr. Cheung's office, and the calluses on the plantar aspect of both feet were scraped. Bleeding was encountered. The patient indicates that he was then referred for further evaluation and management at the [facility]. The patient's pre-existing medical problems include diabetes mellitus, hyperlipidemia, Parkinson's disease, hypertension, debility, and generalized weakness. Subjective Subjective This 76-year-old male presents for follow-up to the wound care center with a right foot subfirst metatarsal ulceration. ?He is accompanied by his today. He tolerated the total contact cast well last week. He followed with another provider and had the cast removed. Cast was not reapplied. He and his state that he is remaining compliant in wearing diabetic shoes with protective inserts with plantar offloading padding. He denies any constitutional symptoms today.? He has no other complaints today. Objective Data Objective Data Vital Signs: Vital Signs Temp Pulse Resp BP 97.3 F L 80 16 108/65 06/30/22 10:14 06/30/22 10:14 06/28/22 00:21 06/30/22 10:14 Weight: 67.132 kg Body Mass Index (BMI) 21.2 Physical Exam Const alert, oriented x3 and no apparent distress General Appearance: cooperative HEENT normocephalic Eyes General Eye: normal appearance of both eyes Neck General: normal visual inspection Lymph Lymphatic: no lymphadenopathy noted and no lymphedema noted Resp normal respiratory effort Cardio regular rate and regular rhythm Extremity normal capillary refill, no joint enlargement, no calf tenderness and no pedal edema Skin no rashes or lesions noted, skin turgor normal and no jaundice Skin Narrative: Skin is thin/atrophic bilaterally Fat pad atrophy bilaterally to the forefoot Wound Narrative: Right foot: Sub first metatarsal ulceration measures 0.5 cm x 0.5 cm x 0.1 cm.? Ulcerative base demonstrates healthy granular tissue with surrounding hyperkeratotic tissue.? No signs of infection. Left foot: Hyperkeratotic tissue distal tuft of 3rd digit secondary to hammertoe deformity. Site is healed and offloaded with padding. Neuro moves all extremities Debridement Note Debridement Note Wound debrided: Sub first and sub 4th metatarsal head Laterality: Right Wound Grade/Stage: [place] stage I Type of Debridement: Excisional debridement Anesthesia Used: 5% Lidocaine Gel Depth: Down to and including healthy tissue and in the subcutaneous layer Percentage of wound debrided: 100 Instrument Used: - (313 blade) Tissue Removed: Fibrous, devitalized subcutaneous, biofilm, slough Severity: Fat Layer Exposed Amount of bleeding with debridement: Mild Bleeding Controlled with: Compression and gauze Patient tolerated procedure: Patient tolerated procedure well Post-Debridement Measurements and Additional Note: Post-Debridement Measurements/Treatment - Nurse 1 - General Ulcer Assessment Start: 06/30/22 10:14 Freq: Status: Active Protocol: TAMIR Activity Type Activity Date Activity User E-sign Co-sign Detail Recorded Client Recorded Date Recorded By Document 06/30/22 10:14 MARÍA [id number] 06/30/22 10:16 MARÍA 06/30/22 10:14 - Today's Visit Information Type of service Follow-up Visit (Physician/[employer] ) Arrival Mode Ambulatory Patient Identification Verified (Name & Yes ) Patient Requires Transmission-Based No Precautions Safety Precautions NA Height and Weight Body Mass Index (BMI) 21.2 BMI Classification Normal Vital Signs Temperature (97.8 F-99.1 F) 97.3 F L Temperature Source Temporal Pulse Rate (60-100) 80 Pulse Location Monitor Blood Pressure (90/60-120/80) 108/65 Blood Pressure Mean (mm Hg) 79 Source Monitor History Since Last Visit- (Skip if this is Patient's initial visit) Have you changed medications since your No last visit? Any new allergies or adverse reactions No Had a fall/change in ADL's that may No increase risk of falls Signs or symptoms of abuse and/or No neglect since last visit Have you been in the hospital since your No last visit? Has dressing in place as prescribed Yes Has compression in place as prescribed N/A Has offloadiing in place as prescribed N/A Experienced any changes in pain level or No management Left Footwear Regular Shoe Right Footwear Regular Shoe Pain Scale: 0-10 Numeric Is Patient Pain Free? Yes - Nurse 1 - General Ulcer Measurement Start: 06/30/22 10:14 Freq: Status: Active Protocol: Activity Type Activity Date Activity User E-sign Co-sign Detail Recorded Client Recorded Date Recorded By Document 06/30/22 10:14 MARÍA [id number] 06/30/22 10:16 AK 06/30/22 10:14 Wound Center Nurse 1 #2- R 1ST MET HEAD -Combined with other wound No -Current Size (cm) - Length 0.4 -Current Size (cm) - Width 0.4 -Current Size (cm) - Depth 0.3 -Total Square Cm 0.16 -Date of Last Picture (Recall this 06/30/22 field) -Photo Taken Yes -Tunneling No -Undermining/Tunneling No -Circular Undermining No -Change in Wound Grade/Stage No -Exudate Amt Medium -Exudate Type Serosanguineous -Wound Margin Distinct, Outline Attached -Granulation Amt Small (1-33%) -Granulation Quality Pale,[place] -Slough/Fibrin No -Necrosis Amt None Present (0 %) -Structure Exposed N/A -Texture (Kathya-wound Skin Appearance) Assessed,Callus -Moisture (Kathya-wound Skin Appearance) No Abnormality, Assessed -Color (Kathya-wound Skin Appearance) No Abnormality, Assessed -Temperature (Kathya-wound Skin No Abnormality Appearance) (Pt Warm) -Tenderness on Palpation (Kathya-wound No Skin Appearance) -Ulcer Cleansing Soap and Water -Foul Odor after Cleansing No -Anesthetic Used 5% Lidocaine Gel WC - Nurse 3 - General Ulcer D/C NN Start: 06/30/22 10:14 Freq: Status: Active Protocol: Activity Type Activity Date Activity User E-sign Co-sign Detail Recorded Client Recorded Date Recorded By Document 06/30/22 11:06 [id number] 06/30/22 11:07 ML 06/30/22 11:06 Wound Care Nurse 3 -Ulcer Cleansing Rinsed/ Irrigated with Saline -Other Dressing collogen powder ,amd, -Primary Dressing Covered/Secured with Dry Gauze & Roll Gauze, Secured with Tape Pain Scale: 0-10 Numeric Is Patient Pain Free? Yes Assessment/Plan Assessment/Plan (1) Non-pressure chronic ulcer of other part of right foot with fat layer exposed: CODE(S): L97.512 - Non-pressure chronic ulcer of other part of right foot with fat layer exposed (2) Non-pressure chronic ulcer of other part of left foot with fat layer exposed: CODE(S): L97.522 - Non-pressure chronic ulcer of other part of left foot with fat layer exposed (3) Diabetes mellitus, type II: CODE(S): E11.9 - Type 2 diabetes mellitus without complications (4) Callus of foot: CODE(S): L84 - Corns and callosities (5) Generalized weakness: CODE(S): R53.1 - Weakness (6) Acute renal insufficiency: CODE(S): N28.9 - Disorder of kidney and ureter, unspecified (7) Parkinsons disease: CODE(S): G20 - Parkinson's disease (8) Parkinson's disease dementia: CODE(S): G20 - Parkinson's disease; F02.80 - Dementia in other diseases classified elsewhere, unspecified severity, without behavioral disturbance, psychotic disturbance, mood disturbance, and anxiety QUALIFIERS: Qualified Code(s): F02.80 - Dementia in other diseases classified elsewhere without behavioral disturbance PLAN: Plan Patient seen and evaluated. Ulceration distal tuft third digit remains healed with some hyperkeratotic tissue.? No signs of infection.? Ulceration caused secondary to pressure via hammertoe deformity.?Continued offloading of the digit with a crest pad. Sub- fourth metatarsal head right demonstrates callus tissue buildup this was sharply debrided with a 313 blade.? Site has reopened secondary to excess pressure ulcerative site measures 0.5 cm x 0.5 cm x 0.1 cm.? No signs of infection. Collagen powder and PHMB dressing applied. Debridement of subfirst metatarsal head ulcer of the right foot performed with a 3mm curette as noted in the clinical panel above.? Ulceration measures 0.5 cm x 0.5 cm x 0.1 cm. No signs of infection. Offloading pad remains in place to bottom of his diabetic insert of the right foot.?I advised the patient to continue to stay off of his feet as much as possible to aid in pressure reduction for healing of this ulcerative site, however I do not believe he is doing this consistently due to ulceration failing to progress. Collagen powder and PHMB dressing applied to the subfirst metatarsal wound and dressed with dry sterile dressing. Offloading: He did tolerate total contact cast well. However we will refrain today from reapplication. We will continue offloading with diabetic shoe inserts and plantar offloading padding. I discussed with the patient to continue to check his feet daily for any signs of wounds or pressure sites which may contribute to wound formation.?He is to remain in the diabetic shoes with inserts for proper offloading of the pressure sites and to not wear house sandals or house slippers or go barefoot.? I reminded them that his wounds are caused secondarily from pressure due to his atrophic fat pad at the forefoot and plantigrade metatarsals creating direct pressure at the forefoot and pressure reduction is the fields to continued healing and prevention or recurrence of wounds.? I again stressed the importance of staying off of his feet as much as possible to allow the wounds to reducing pressure and allow for healing.? However due to the increased callus tissue buildup and failure to progress, I feel compliance with proper offloading remains an issue. I discussed the localized signs of infection with the patient's and his today and instructed them if they notice any increased redness around the wound, purulent drainage, malodor, red streaking going up the leg, or if he experiences any nausea, vomiting, fever, chills to go to the emergency department for treatment as these are signs of a progressing infection.? and patient voiced understanding of this. The following work up and care recommendations were made: Dressing: Jaja dry sterile dressing. Wash: Do not get wet Tissue growth optimization: Jaja Offload: Diabetic shoe with inserts and plantar offloading padding left and right. 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 Atrophic fat pad at the forefoot.? Parkinson's disease. ? I answered all the patient's questions.? To return to the wound healing center in 2 weeks or call sooner if the patient has any questions or concerns. Note: [employer] speech recognition nursery laborer software was used to create portions of this document. Sound-alike and misspelled words, as well as other nursery laborer errors may be contained in the documentation.
[2022-07-14 10:03] VITALS: BP 131/70; PULSE 83; TEMP 36.2; BMI 21.2
--- NOTE | 2022-07-14 10:13 | PCM.WC.PN ---
History of Present Illness Date of Service: 07/14/22 Chief Complaint: Foot wound History of Wound: 75-year-old male who was referred for evaluation relative to wounds on his feet. He has apparently been under the care of Dr. Cheung, podiatric specialist, recently, though no such medical records are available. According to the patient, and his , the patient was evaluated in Dr. Cheung's office, and the calluses on the plantar aspect of both feet were scraped. Bleeding was encountered. The patient indicates that he was then referred for further evaluation and management at the [facility]. The patient's pre-existing medical problems include diabetes mellitus, hyperlipidemia, Parkinson's disease, hypertension, debility, and generalized weakness. Subjective Subjective This 76-year-old male presents for follow-up to the wound care center with a right foot subfirst metatarsal ulceration. ?He is accompanied by his today.?He and his state that he is remaining compliant in wearing diabetic shoes with protective inserts with plantar offloading padding. He denies any constitutional symptoms today.? He has no other complaints today. Objective Data Objective Data Vital Signs: Vital Signs Temp Pulse Resp BP 97.2 F L 83 16 131/70 H 07/14/22 10:03 07/14/22 10:03 06/28/22 00:21 07/14/22 10:03 Weight: 67.132 kg Body Mass Index (BMI) 21.2 Physical Exam Const alert, oriented x3 and no apparent distress General Appearance: cooperative HEENT normocephalic Eyes General Eye: normal appearance of both eyes Neck General: normal visual inspection Lymph Lymphatic: no lymphadenopathy noted and no lymphedema noted Resp normal respiratory effort Cardio regular rate and regular rhythm Extremity normal capillary refill, no joint enlargement, no calf tenderness and no pedal edema Skin no rashes or lesions noted, skin turgor normal and no jaundice Skin Narrative: Skin is thin/atrophic bilaterally Fat pad atrophy bilaterally to the forefoot Wound Narrative: Right foot: Sub first metatarsal ulceration measures 0.3 cm x 0.5 cm x 0.1 cm.? Ulcerative base demonstrates healthy granular tissue with surrounding hyperkeratotic tissue.? No signs of infection. Left foot: Hyperkeratotic tissue distal tuft of 3rd digit secondary to hammertoe deformity. Site is healed and offloaded with padding. Neuro moves all extremities Debridement Note Debridement Note Wound debrided: Sub First Metatarsal head Laterality: Right Wound Grade/Stage: Owusu stage I Type of Debridement: Excisional debridement Anesthesia Used: 5% Lidocaine Gel Depth: Down to and including healthy tissue and in the subcutaneous layer Instrument Used: - (313 blade) Tissue Removed: Fibrous, devitalized subcutaneous, biofilm, slough Severity: Fat Layer Exposed Amount of bleeding with debridement: Mild Bleeding Controlled with: Compression and gauze Patient tolerated procedure: Patient tolerated procedure well Post-Debridement Measurements and Additional Note: Post-Debridement Measurements/Treatment - Nurse 1 - General Ulcer Assessment Start: 06/30/22 10:14 Freq: Status: Active Protocol: [id number] Activity Type Activity Date Activity User E-sign Co-sign Detail Recorded Client Recorded Date Recorded By Document 06/30/22 10:14 MARÍA [id number] 06/30/22 10:16 AK Document 07/14/22 10:03 MARÍA [id number] 07/14/22 10:07 MARÍA 06/30/22 07/14/22 10:14 10:03 - Today's Visit Information Type of service Follow-up Visit Follow-up Visit (Physician/SUSTAINABLE PRODUCTS MARKETING MANAGER (Physician/SUSTAINABLE PRODUCTS MARKETING MANAGER ) ) Arrival Mode Ambulatory Ambulatory,Cane Patient Identification Verified (Name & Yes Yes ) Patient Requires Transmission-Based No No Precautions Safety Precautions NA NA Height and Weight Body Mass Index (BMI) 21.2 21.2 BMI Classification Normal Normal Vital Signs Temperature (97.8 F-99.1 F) 97.3 F L 97.2 F L Temperature Source Temporal Temporal Pulse Rate (60-100) 80 83 Pulse Location Monitor Monitor Blood Pressure (90/60-120/80) 108/65 131/70 H Blood Pressure Mean (mm Hg) 79 90 Source Monitor Monitor History Since Last Visit- (Skip if this is Patient's initial visit) Have you changed medications since your No No last visit? Any new allergies or adverse reactions No No Had a fall/change in ADL's that may No No increase risk of falls Signs or symptoms of abuse and/or No No neglect since last visit Have you been in the hospital since your No No last visit? Has dressing in place as prescribed Yes Yes Has compression in place as prescribed N/A No Has offloadiing in place as prescribed N/A Yes Experienced any changes in pain level or No No management Left Footwear Regular Shoe Regular Shoe Right Footwear Regular Shoe Surgical Shoe with pressure relief insole Pain Scale: 0-10 Numeric Is Patient Pain Free? Yes Yes - Nurse 1 - General Ulcer Measurement Start: 06/30/22 10:14 Freq: Status: Active Protocol: Activity Type Activity Date Activity User E-sign Co-sign Detail Recorded Client Recorded Date Recorded By Document 06/30/22 10:14 MARÍA [id number] 06/30/22 10:16 AK Document 07/14/22 10:03 NV [id number] 07/14/22 10:07 AK 06/30/22 07/14/22 10:14 10:03 Wound Center Nurse 1 #2- R 1ST MET HEAD -Combined with other wound No -Current Size (cm) - Length 0.4 0.6 -Current Size (cm) - Width 0.4 0.7 -Current Size (cm) - Depth 0.3 0.2 -Total Square Cm 0.16 0.42 -Date of Last Picture (Recall this 06/30/22 field) -Photo Taken Yes Yes -Tunneling No No -Undermining/Tunneling No No -Circular Undermining No No -Change in Wound Grade/Stage No -Exudate Amt Medium Medium -Exudate Type Serosanguineous Serosanguineous -Wound Margin Distinct, Distinct, Outline Outline Attached Attached -Granulation Amt Small (1-33%) Large (67-100%) -Granulation Quality Pale,Regan Pale,Regan -Slough/Fibrin No No -Necrosis Amt None Present (0 None Present (0 %) %) -Structure Exposed N/A N/A -Texture (Kathya-wound Skin Appearance) Assessed,Callus Assessed,Callus -Moisture (Kathya-wound Skin Appearance) No Abnormality, No Abnormality, Assessed Assessed -Color (Kathya-wound Skin Appearance) No Abnormality, No Abnormality, Assessed Assessed -Temperature (Kathya-wound Skin No Abnormality No Abnormality Appearance) (Pt Warm) (Pt Warm) -Tenderness on Palpation (Kathya-wound No No Skin Appearance) -Ulcer Cleansing Soap and Water Soap and Water -Foul Odor after Cleansing No No -Anesthetic Used 5% Lidocaine 5% Lidocaine Gel Gel WC - Nurse 2 - General Ulcer CM Notes Start: 06/30/22 10:14 Freq: Status: Active Protocol: Activity Type Activity Date Activity User E-sign Co-sign Detail Recorded Client Recorded Date Recorded By Document 06/30/22 12:36 PL [id number] 06/30/22 12:37 PL 06/30/22 12:36 Wound Center Nurse 2 -Time 10:54 -Correct Patient Yes -Correct Side, Site, Position Yes -Correct Procedure Yes -Procedure Performed Yes -Type of Procedure Debridement -Clinical Debridement Subcutaneous -Tissue Removed Subcutaneous -Post Debridement (cm) - Length 0.5 -Post Debridement (cm) - Width 0.5 -Post Debridement (cm) - Depth 0.1 -Total Square (Post) (cm) 0.25 -Area of Debridement (cm) - Length 0.5 -Area of Debridement (cm) - Width 0.5 -Total Square (Area) (cm) 0.25 -Tunneling No -Undermining/Tunneling No -Circular Undermining No -Wound/Ulcer Outcome Not Healed -Ulcer Cleansing Rinsed/ Irrigated with Saline -Foul Odor after Cleansing No -Bioengineered Tissue No -Bleeding Controlled with Pressure -Treatment Response Procedure Tolerated Well -Debridement - Subq, 1st 20sq cm Yes Pain Scale: 0-10 Numeric Is Patient Pain Free? Yes WC - Nurse 3 - General Ulcer D/C NN Start: 06/30/22 10:14 Freq: Status: Active Protocol: Activity Type Activity Date Activity User E-sign Co-sign Detail Recorded Client Recorded Date Recorded By Document 06/30/22 11:06 ML [id number] 06/30/22 11:07 ML 06/30/22 11:06 Wound Care Nurse 3 #2- R 1ST MET HEAD -Ulcer Cleansing Rinsed/ Irrigated with Saline -Other Dressing collogen powder ,amd, -Primary Dressing Covered/Secured with Dry Gauze & Roll Gauze, Secured with Tape Pain Scale: 0-10 Numeric Is Patient Pain Free? Yes Assessment/Plan Assessment/Plan (1) Non-pressure chronic ulcer of other part of right foot with fat layer exposed: CODE(S): L97.512 - Non-pressure chronic ulcer of other part of right foot with fat layer exposed (2) Non-pressure chronic ulcer of other part of left foot with fat layer exposed: CODE(S): L97.522 - Non-pressure chronic ulcer of other part of left foot with fat layer exposed (3) Diabetes mellitus, type II: CODE(S): E11.9 - Type 2 diabetes mellitus without complications (4) Callus of foot: CODE(S): L84 - Corns and callosities (5) Generalized weakness: CODE(S): R53.1 - Weakness (6) Acute renal insufficiency: CODE(S): N28.9 - Disorder of kidney and ureter, unspecified (7) Parkinsons disease: CODE(S): G20 - Parkinson's disease (8) Parkinson's disease dementia: CODE(S): G20 - Parkinson's disease; F02.80 - Dementia in other diseases classified elsewhere, unspecified severity, without behavioral disturbance, psychotic disturbance, mood disturbance, and anxiety QUALIFIERS: Qualified Code(s): F02.80 - Dementia in other diseases classified elsewhere without behavioral disturbance PLAN: Plan Patient seen and evaluated. Ulceration distal tuft third digit remains healed with some hyperkeratotic tissue.? No signs of infection.? Ulceration caused secondary to pressure via hammertoe deformity.?Continued offloading of the digit with a crest pad. Sub- fourth metatarsal head right demonstrates callus tissue buildup this was sharply debrided with a 313 blade. Debridement of subfirst metatarsal head ulcer of the right foot performed as noted in the clinical panel above.? Ulceration measures 0.3 cm x 0.5 cm x 0.1 cm. No signs of infection. Offloading pad remains in place to bottom of his diabetic insert of the right foot.?I advised the patient to continue to stay off of his feet as much as possible to aid in pressure reduction for healing of this ulcerative site, however I do not believe he is doing this consistently due to ulceration failing to progress. Hydrogel applied today to site. He will apply Collagen powder and PHMB dressing applied to the subfirst metatarsal wound and dressed with dry sterile dressing tonight. Offloading: He did tolerate total contact cast well. However we will continue to refrain from reapplication. We will continue offloading with diabetic shoe inserts and plantar offloading padding. I discussed with the patient to continue to check his feet daily for any signs of wounds or pressure sites which may contribute to wound formation.?He is to remain in the diabetic shoes with inserts for proper offloading of the pressure sites and to not wear house sandals or house slippers or go barefoot.? I reminded them that his wounds are caused secondarily from pressure due to his atrophic fat pad at the forefoot and plantigrade metatarsals creating direct pressure at the forefoot and pressure reduction is the fields to continued healing and prevention or recurrence of wounds.? I again stressed the importance of staying off of his feet as much as possible to allow the wounds to reducing pressure and allow for healing.? However due to the increased callus tissue buildup and failure to progress, I feel compliance with proper offloading remains an issue. I discussed the localized signs of infection with the patient's and his today and instructed them if they notice any increased redness around the wound, purulent drainage, malodor, red streaking going up the leg, or if he experiences any nausea, vomiting, fever, chills to go to the emergency department for treatment as these are signs of a progressing infection.? and patient voiced understanding of this. The following work up and care recommendations were made: Dressing: Collagen Powder and PHMB with dry sterile dressing. Wash: Do not get wet Tissue growth optimization: Collagen powder with PHMB Offload: Diabetic shoe with inserts and plantar offloading padding left and right. 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 Atrophic fat pad at the forefoot.? Parkinson's disease. ? I answered all the patient's questions.? To return to the wound healing center in 2 weeks or call sooner if the patient has any questions or concerns. Note: [employer] speech recognition plastic sewer software was used to create portions of this document. Sound-alike and misspelled words, as well as other plastic sewer errors may be contained in the documentation.
== END 2022-07-27 23:59 | disposition home or self-care (01) ==
LOC: WC 10:00
PROVIDERS: PCP Nurse Practitioner Family; Visit Provider Student in an Organized Health Care Education/Training Program
DX: E11.621 Type 2 diabetes mellitus with foot ulcer (principal); G20 Parkinson's disease; L97.522 Non-pressure chronic ulcer of other part of left foot with fat layer exposed; L97.512 Non-pressure chronic ulcer of other part of right foot with fat layer exposed; F02.80 Dementia in other diseases classified elsewhere, unspecified severity, without behavioral disturbance, psychotic disturbance, mood disturbance, and anxiety; E78.5 Hyperlipidemia, unspecified; R53.1 Weakness; R53.81 Other malaise; I10 Essential (primary) hypertension; L84 Corns and callosities
CPT/HCPCS: 11042

== ENCOUNTER 2022-08-25 10:30 | Outpatient (RCR) | payer MEDICARE, OTHER, SELFPAY ==
[2022-07-28 00:20] VITALS: BP 131/70; PULSE 83; RESP 16; TEMP 36.2; BMI 21.2
--- NOTE | 2022-07-28 09:58 | PCM.WC.PN ---
History of Present Illness Date of Service: 07/28/22 Chief Complaint: Foot wound History of Wound: 75-year-old male who was referred for evaluation relative to wounds on his feet. He has apparently been under the care of Dr. Cheung, podiatric specialist, recently, though no such medical records are available. According to the patient, and his , the patient was evaluated in Dr. Cheung's office, and the calluses on the plantar aspect of both feet were scraped. Bleeding was encountered. The patient indicates that he was then referred for further evaluation and management at the [facility]. The patient's pre-existing medical problems include diabetes mellitus, hyperlipidemia, Parkinson's disease, hypertension, debility, and generalized weakness. Subjective Subjective This 76-year-old male presents for follow-up to the wound care center with a right foot subfirst metatarsal ulceration. ?He is accompanied by his today.?His state that he is remaining compliant in wearing diabetic shoes with protective inserts with plantar offloading padding. He denies any constitutional symptoms today.? He has no other complaints today. Objective Data Objective Data Vital Signs: Vital Signs Temp Pulse Resp BP 97.2 F L 83 16 131/70 H 07/28/22 00:20 07/28/22 00:20 07/28/22 00:20 07/28/22 00:20 Weight: 67.132 kg Body Mass Index (BMI) 21.2 Physical Exam Const alert, oriented x3 and no apparent distress General Appearance: cooperative HEENT normocephalic Eyes General Eye: normal appearance of both eyes Neck General: normal visual inspection Lymph Lymphatic: no lymphadenopathy noted and no lymphedema noted Resp normal respiratory effort Cardio regular rate and regular rhythm Extremity normal capillary refill, no joint enlargement, no calf tenderness and no pedal edema Skin no rashes or lesions noted, skin turgor normal and no jaundice Skin Narrative: Skin is thin/atrophic bilaterally Fat pad atrophy bilaterally to the forefoot Wound Narrative: Right foot: Sub first metatarsal ulceration measures 0.4 cm x 0.5 cm x 0.1 cm.? Ulcerative base demonstrates healthy granular tissue with surrounding hyperkeratotic tissue.? No signs of infection. Left foot: Hyperkeratotic tissue distal tuft of 3rd digit secondary to hammertoe deformity. Site is healed and offloaded with padding. Neuro moves all extremities Debridement Note Debridement Note Wound debrided: Sub first metatarsal head Laterality: Right Wound Grade/Stage: Owusu stage I Type of Debridement: Excisional debridement Anesthesia Used: 5% Lidocaine Gel Depth: Down to and including healthy tissue and in the subcutaneous layer Percentage of wound debrided: 100 Instrument Used: 3mm curette and - (313 blade) Tissue Removed: Fibrous, devitalized subcutaneous, biofilm, slough Severity: Fat Layer Exposed Amount of bleeding with debridement: Mild Bleeding Controlled with: Compression and gauze Patient tolerated procedure: Patient tolerated procedure well Assessment/Plan Assessment/Plan (1) Non-pressure chronic ulcer of other part of right foot with fat layer exposed: CODE(S): L97.512 - Non-pressure chronic ulcer of other part of right foot with fat layer exposed (2) Non-pressure chronic ulcer of other part of left foot with fat layer exposed: CODE(S): L97.522 - Non-pressure chronic ulcer of other part of left foot with fat layer exposed (3) Diabetes mellitus, type II: CODE(S): E11.9 - Type 2 diabetes mellitus without complications (4) Callus of foot: CODE(S): L84 - Corns and callosities (5) Generalized weakness: CODE(S): R53.1 - Weakness (6) Acute renal insufficiency: CODE(S): N28.9 - Disorder of kidney and ureter, unspecified (7) Parkinson's disease dementia: CODE(S): G20 - Parkinson's disease; F02.80 - Dementia in other diseases classified elsewhere, unspecified severity, without behavioral disturbance, psychotic disturbance, mood disturbance, and anxiety QUALIFIERS: Qualified Code(s): F02.80 - Dementia in other diseases classified elsewhere without behavioral disturbance (8) Parkinsons disease: CODE(S): G20 - Parkinson's disease PLAN: Plan Patient seen and evaluated. Ulceration distal tuft third digit remains healed with some hyperkeratotic tissue.? No signs of infection.? Ulceration caused secondary to pressure via hammertoe deformity.?Continued offloading of the digit with a crest pad. Sub- fourth metatarsal head right demonstrates callus tissue buildup this was sharply debrided with a 313 blade. Debridement of subfirst metatarsal head ulcer of the right foot performed as noted in the clinical panel above.? Ulceration measures 0.4 cm x 0.5 cm x 0.1 cm. No signs of infection. Offloading pad remains in place to bottom of his diabetic insert of the right foot.?I advised the patient to continue to stay off of his feet as much as possible to aid in pressure reduction for healing of this ulcerative site, however I do not believe he is doing this consistently due to ulceration failing to progress.? Collagen powder and PHMB dressing applied to the subfirst metatarsal wound and dressed with dry sterile dressing tonight. Offloading: He did tolerate total contact cast well.? However we will continue to refrain from reapplication.? We will continue offloading with diabetic shoe inserts and plantar offloading padding. I discussed with the patient to continue to check his feet daily for any signs of wounds or pressure sites which may contribute to wound formation.?He is to remain in the diabetic shoes with inserts for proper offloading of the pressure sites and to not wear house sandals or house slippers or go barefoot.? I reminded them that his wounds are caused secondarily from pressure due to his atrophic fat pad at the forefoot and plantigrade metatarsals creating direct pressure at the forefoot and pressure reduction is the fields to continued healing and prevention or recurrence of wounds.? I again stressed the importance of staying off of his feet as much as possible to allow the wounds to reducing pressure and allow for healing.? However due to the increased callus tissue buildup and failure to progress, I feel compliance with proper offloading remains an issue. I discussed the localized signs of infection with the patient's and his today and instructed them if they notice any increased redness around the wound, purulent drainage, malodor, red streaking going up the leg, or if he experiences any nausea, vomiting, fever, chills to go to the emergency department for treatment as these are signs of a progressing infection.? and patient voiced understanding of this. The following work up and care recommendations were made: Dressing: Collagen Powder and PHMB with dry sterile dressing. Wash: Do not get wet Tissue growth optimization: Collagen powder with PHMB Offload: Diabetic shoe with inserts and plantar offloading padding left and right. 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 Atrophic fat pad at the forefoot.? Parkinson's disease. ? I answered all the patient's questions.? To return to the wound healing center in 2 weeks or call sooner if the patient has any questions or concerns. Note: [employer] speech recognition fender mechanic apprentice software was used to create portions of this document. Sound-alike and misspelled words, as well as other fender mechanic apprentice errors may be contained in the documentation.
[2022-07-28 11:35] VITALS: BP 116/53; PULSE 67; TEMP 36.4; BMI 21.2
--- NOTE | 2022-08-11 10:28 | PN.PCM_ITS ---
History of Present Illness Date of Service: 08/11/22 Chief Complaint: Foot wound History of Wound: 75-year-old male who was referred for evaluation relative to wounds on his feet. He has apparently been under the care of Dr. Cheung, podiatric specialist, recently, though no such medical records are available. According to the patient, and his , the patient was evaluated in Dr. Cheung's office, and the calluses on the plantar aspect of both feet were scraped. Bleeding was encountered. The patient indicates that he was then referred for further evaluation and management at the [facility]. The patient's pre-existing medical problems include diabetes mellitus, hyperlipidemia, Parkinson's disease, hypertension, debility, and generalized weakness. Subjective Subjective This 76-year-old male presents for follow-up to the wound care center with a right foot subfirst metatarsal ulceration. ?He is accompanied by his today who assists him in dressing changes.?His state that he returned to a surgical shoe with plantar offloading padding. He denies any constitutional symptoms today.? He has no other complaints today. Objective Data Objective Data Vital Signs: Vital Signs Temp Pulse Resp BP 97.6 F L 67 16 116/53 L 07/28/22 11:35 07/28/22 11:35 07/28/22 00:20 07/28/22 11:35 Weight: 67.132 kg Body Mass Index (BMI) 21.2 Physical Exam Const alert, oriented x3 and no apparent distress General Appearance: cooperative HEENT normocephalic Eyes General Eye: normal appearance of both eyes Neck General: normal visual inspection Lymph Lymphatic: no lymphadenopathy noted and no lymphedema noted Resp normal respiratory effort Cardio regular rate and regular rhythm Extremity normal capillary refill, no joint enlargement, no calf tenderness and no pedal edema Skin no rashes or lesions noted, skin turgor normal and no jaundice Skin Narrative: Skin is thin/atrophic bilaterally Fat pad atrophy bilaterally to the forefoot Wound Narrative: Right foot: Sub first metatarsal ulceration measures 0.2 cm x 0.4 cm x 0.1 cm.? Ulcerative base demonstrates healthy granular tissue with surrounding hyperkerat otic tissue.? No signs of infection. Left foot: Hyperkeratotic tissue distal tuft of 3rd digit secondary to hammertoe deformity. Site is healed and offloaded with padding. Neuro moves all extremities Debridement Note Debridement Note Wound debrided: Sub first metatarsal head Laterality: Right Wound Grade/Stage: Owusu stage I Type of Debridement: Excisional debridement Anesthesia Used: 5% Lidocaine Gel Depth: Down to and including healthy tissue and in the subcutaneous layer Percentage of wound debrided: 100 Instrument Used: - (313 blade) Tissue Removed: Fibrous, devitalized subcutaneous, biofilm, slough Severity: Fat Layer Exposed Amount of bleeding with debridement: Mild Bleeding Controlled with: Compression and gauze Patient tolerated procedure: Patient tolerated procedure well Post-Debridement Measurements and Additional Note: Post-Debridement Measurements/Treatment WC - Nurse 1 - General Ulcer Assessment Start: 07/28/22 10:30 Freq: Status: Active Protocol: TAMIR Activity Type Activity Date Activity User E-sign Co-sign Detail Recorded Client Recorded Date Recorded By Document 07/28/22 11:35 AMILCAR [id number] 07/28/22 11:36 AMILCAR 07/28/22 11:35 WC - Today's Visit Information Type of service Follow-up Visit (Physician/PLATER SUPERVISOR ) Arrival Mode Ambulatory Patient Identification Verified (Name & Yes ) Height and Weight Body Mass Index (BMI) 21.2 BMI Classification Normal Vital Signs Temperature (97.8 F-99.1 F) 97.6 F L Temperature Source Temporal Pulse Rate (60-100) 67 Pulse Location Monitor Blood Pressure (90/60-120/80) 116/53 L Blood Pressure Mean (mm Hg) 74 Source Monitor Position Sitting Blood Pressure Location Right Arm History Since Last Visit- (Skip if this is Patient's initial visit) Have you changed medications since your No last visit? Any new allergies or adverse reactions No Had a fall/change in ADL's that may No increase risk of falls Signs or symptoms of abuse and/or No neglect since last visit Have you been in the hospital since your No last visit? Has dressing in place as prescribed Yes Has compression in place as prescribed Yes Has offloadiing in place as prescribed N/A Experienced any changes in pain level or No management Left Footwear Regular Shoe Right Footwear Regular Shoe Pain Scale: 0-10 Numeric Is Patient Pain Free? Yes REECE - Nurse 1 - General Ulcer Measurement Start: 07/28/22 10:30 Freq: Status: Active Protocol: Activity Type Activity Date Activity User E-sign Co-sign Detail Recorded Client Recorded Date Recorded By Document 07/28/22 11:35 KR [id number] 07/28/22 11:36 KR 07/28/22 11:35 Wound Center Nurse 1 #2- R 1ST MET HEAD -Current Size (cm) - Length 0.2 -Current Size (cm) - Width 1 -Current Size (cm) - Depth 0.1 -Total Square Cm 0.2 -Exudate Amt Small -Exudate Type Serosanguineous -Wound Margin Distinct, Outline Attached -Granulation Amt Medium (34-66%) -Granulation Quality [place] -Necrosis Amt None Present (0 %) -Texture (Kathya-wound Skin Appearance) Assessed, Scarring -Moisture (Kathya-wound Skin Appearance) No Abnormality, Assessed -Color (Kathya-wound Skin Appearance) No Abnormality, Assessed -Temperature (Kathya-wound Skin No Abnormality Appearance) (Pt Warm) -Tenderness on Palpation (Kathya-wound No Skin Appearance) -Ulcer Cleansing Rinsed/ Irrigated with Saline -Foul Odor after Cleansing No -Anesthetic Used 5% Lidocaine Gel WC - Nurse 2 - General Ulcer CM Notes Start: 07/28/22 10:30 Freq: Status: Active Protocol: Activity Type Activity Date Activity User E-sign Co-sign Detail Recorded Client Recorded Date Recorded By Document 07/28/22 12:40 JODY [id number] 07/28/22 12:40 JODY 07/28/22 12:40 Wound Center Nurse 2 -Time 10:07 -Correct Patient Yes -Correct Side, Site, Position Yes -Correct Procedure Yes -Procedure Performed Yes -Type of Procedure Debridement -Clinical Debridement Subcutaneous -Tissue Removed Subcutaneous -Post Debridement (cm) - Length 0.4 -Post Debridement (cm) - Width 0.5 -Post Debridement (cm) - Depth 0.1 -Total Square (Post) (cm) 0.20 -Area of Debridement (cm) - Length 0.4 -Area of Debridement (cm) - Width 0.5 -Total Square (Area) (cm) 0.20 -Tunneling No -Undermining/Tunneling No -Circular Undermining No -Wound/Ulcer Outcome Not Healed -Ulcer Cleansing Rinsed/ Irrigated with Saline -Foul Odor after Cleansing No -Bioengineered Tissue No -Bleeding Controlled with Pressure -Treatment Response Procedure Tolerated Well -Debridement - Subq, 1st 20sq cm Yes Pain Scale: 0-10 Numeric Is Patient Pain Free? Yes WC - Nurse 3 - General Ulcer D/C NN Start: 07/28/22 10:30 Freq: Status: Active Protocol: Activity Type Activity Date Activity User E-sign Co-sign Detail Recorded Client Recorded Date Recorded By Document 07/28/22 10:31 NH [id number] 07/28/22 10:40 NH 07/28/22 10:31 Wound Care Nurse 3 #2- R 1ST MET HEAD -Other Dressing collagen powder , AMD pad, kerlix -Primary Dressing Covered/Secured with Dry Gauze,Dry Gauze & Roll Gauze,Secured with Tape Pain Scale: 0-10 Numeric Is Patient Pain Free? Yes WC - Visit Discharge Discharge Condition Stable Ambulatory Status Ambulatory,Cane Transportation Private Auto Medication Reconcilliation completed & No provided to patient/care provider Clinical Summary of Care Provided Yes Notes: and pt verbalized understanding of dressing. Assessment/Plan Assessment/Plan (1) Non-pressure chronic ulcer of other part of right foot with fat layer exposed: CODE(S): L97.512 - Non-pressure chronic ulcer of other part of right foot with fat layer exposed (2) Non-pressure chronic ulcer of other part of left foot with fat layer exposed: CODE(S): L97.522 - Non-pressure chronic ulcer of other part of left foot with fat layer exposed (3) Diabetes mellitus, type II: CODE(S): E11.9 - Type 2 diabetes mellitus without complications (4) Callus of foot: CODE(S): L84 - Corns and callosities (5) Generalized weakness: CODE(S): R53.1 - Weakness (6) Acute renal insufficiency: CODE(S): N28.9 - Disorder of kidney and ureter, unspecified (7) Parkinson's disease dementia: CODE(S): G20 - Parkinson's disease; F02.80 - Dementia in other diseases classified elsewhere, unspecified severity, without behavioral disturbance, psychotic disturbance, mood disturbance, and anxiety QUALIFIERS: Qualified Code(s): F02.80 - Dementia in other diseases classified elsewhere without behavioral disturbance (8) Parkinsons disease: CODE(S): G20 - Parkinson's disease PLAN: Plan Patient seen and evaluated. Ulceration distal tuft third digit remains healed with some hyperkeratotic tissue.? No signs of infection.? Ulceration caused secondary to pressure via hammertoe deformity.?Continued offloading of the digit with a crest pad. Sub- fourth metatarsal head right demonstrates callus tissue buildup with some subdermal hemorrhage this was sharply debrided with a 313 blade. Debridement of subfirst metatarsal head ulcer of the right foot performed as noted in the clinical panel above.? Ulceration measures 0.2 cm x 0.4 cm x 0.1 cm. No signs of infection. Offloading pad remains in place to bottom of his surgical shoe of the right foot.?I advised the patient to continue to stay off of his feet as much as possible to aid in pressure reduction for healing of this ulcerative site, however I do not believe he is doing this consistently due to ulceration failing to progress.? Collagen powder and PHMB dressing applied to the subfirst metatarsal wound and dressed with dry sterile dressing. Offloading: He did tolerate total contact cast well.? However we will continue to refrain from reapplication.? We will continue offloading with diabetic shoe inserts/surgical shoe and plantar offloading padding due to 's concerns of walking. I discussed with the patient to continue to check his feet daily for any signs of wounds or pressure sites which may contribute to wound formation.?He is to remain in the diabetic shoes with inserts for proper offloading of the pressure sites and to not wear house sandals or house slippers or go barefoot.? I reminded them that his wounds are caused secondarily from pressure due to his atrophic fat pad at the forefoot and plantigrade metatarsals creating direct pressure at the forefoot and pressure reduction is the fields to continued healing and prevention or recurrence of wounds.? I again stressed the importance of staying off of his feet as much as possible to allow the wounds to reducing pressure and allow for healing.? However due to the increased callus tissue buildup and failure to progress, I feel compliance with proper offloading remains an issue. I discussed the localized signs of infection with the patient's and his today and instructed them if they notice any increased redness around the wound, purulent drainage, malodor, red streaking going up the leg, or if he experiences any nausea, vomiting, fever, chills to go to the emergency department for treatment as these are signs of a progressing infection.? and patient voiced understanding of this. The following work up and care recommendations were made: Dressing: Collagen Powder and PHMB with dry sterile dressing. Wash: Do not get wet Tissue growth optimization: Collagen powder with PHMB Offload: Diabetic shoe with inserts and plantar offloading padding left and right. 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 Atrophic fat pad at the forefoot.? Parkinson's disease. ? I answered all the patient's questions.? To return to the wound healing center in 2 weeks or call sooner if the patient has any questions or concerns. Note: [email or web address] speech recognition nurses aide software was used to create portions of this document. Sound-alike and misspelled words, as well as other nurses aide errors may be contained in the documentation.
[2022-08-11 10:31] VITALS: BP 123/66; PULSE 69; TEMP 36.2; BMI 21.2
--- NOTE | 2022-08-25 10:26 | PN.PCM_ITS ---
History of Present Illness Date of Service: 08/25/22 Chief Complaint: Foot wound History of Wound: 75-year-old male who was referred for evaluation relative to wounds on his feet. He has apparently been under the care of Dr. Cheung, podiatric specialist, recently, though no such medical records are available. According to the patient, and his , the patient was evaluated in Dr. Cheung's office, and the calluses on the plantar aspect of both feet were scraped. Bleeding was encountered. The patient indicates that he was then referred for further evaluation and management at the [facility]. The patient's pre-existing medical problems include diabetes mellitus, hyperlipidemia, Parkinson's disease, hypertension, debility, and generalized weakness. Subjective Subjective This 76-year-old male presents for follow-up to the wound care center with a right foot subfirst metatarsal ulceration. ?He is accompanied by his today who assists him in dressing changes. His states visiting nursing checks on him twice a week. He has remained in his surgical shoe with plantar offloading padding. He denies any constitutional symptoms today.? He has no other complaints today. Objective Data Objective Data Vital Signs: Vital Signs Temp Pulse Resp BP 97.2 F L 69 16 123/66 H 08/11/22 10:31 08/11/22 10:31 07/28/22 00:20 08/11/22 10:31 Weight: 67.132 kg Body Mass Index (BMI) 21.2 Physical Exam Const alert, oriented x3 and no apparent distress General Appearance: cooperative HEENT normocephalic Eyes General Eye: normal appearance of both eyes Neck General: normal visual inspection Lymph Lymphatic: no lymphadenopathy noted and no lymphedema noted Resp normal respiratory effort Cardio regular rate and regular rhythm Extremity normal capillary refill, no joint enlargement, no calf tenderness and no pedal edema Skin no rashes or lesions noted, skin turgor normal and no jaundice Skin Narrative: Skin is thin/atrophic bilaterally Fat pad atrophy bilaterally to the forefoot Wound Narrative: Right foot: Sub first metatarsal ulceration measures 0.4 cm x 0.4 cm x 0.1 cm.? Ulcerative base demonstrates healthy granular tissue with surrounding hyperkeratotic tissue.? No signs of infection. Left foot: Hyperkeratotic tissue distal tuft of 3rd digit secondary to hammertoe deformity. Site is healed and offloaded with padding. Neuro moves all extremities Debridement Note Debridement Note Wound debrided: Sub first metatarsal head Laterality: Right Wound Grade/Stage: [place] stage I Type of Debridement: Excisional debridement Anesthesia Used: 5% Lidocaine Gel Depth: Down to and including healthy tissue and in the subcutaneous layer Percentage of wound debrided: 100 Instrument Used: - (313 blade) Tissue Removed: Fibrous, devitalized subcutaneous, biofilm, slough Severity: Fat Layer Exposed Amount of bleeding with debridement: Mild Bleeding Controlled with: Compression and gauze Patient tolerated procedure: Patient tolerated procedure well Post-Debridement Measurements and Additional Note: Post-Debridement Measurements/Treatment - Nurse 1 - General Ulcer Assessment Start: 07/28/22 10:30 Freq: Status: Active Protocol: TAMIR Activity Type Activity Date Activity User E-sign Co-sign Detail Recorded Client Recorded Date Recorded By Document 07/28/22 11:35 AMILCAR [id number] 07/28/22 11:36 KR Document 08/11/22 10:31 MARÍA [id number] 08/11/22 10:33 MARÍA 07/28/22 08/11/22 11:35 10:31 - Today's Visit Information Type of service Follow-up Visit Follow-up Visit (Physician/COMMERCIAL PORTFOLIO MANAGER (Physician/COMMERCIAL PORTFOLIO MANAGER ) ) Arrival Mode Ambulatory Ambulatory Patient Identification Verified (Name & Yes Yes ) Patient Requires Transmission-Based No Precautions Safety Precautions NA Height and Weight Body Mass Index (BMI) 21.2 21.2 BMI Classification Normal Normal Vital Signs Temperature (97.8 F-99.1 F) 97.6 F L 97.2 F L Temperature Source Temporal Temporal Pulse Rate (60-100) 67 69 Pulse Location Monitor Monitor Blood Pressure (90/60-120/80) 116/53 L 123/66 H Blood Pressure Mean (mm Hg) 74 85 Source Monitor Monitor Position Sitting Blood Pressure Location Right Arm History Since Last Visit- (Skip if this is Patient's initial visit) Have you changed medications since your No No last visit? Any new allergies or adverse reactions No No Had a fall/change in ADL's that may No No increase risk of falls Signs or symptoms of abuse and/or No No neglect since last visit Have you been in the hospital since your No No last visit? Has dressing in place as prescribed Yes Yes Has compression in place as prescribed Yes N/A Has offloadiing in place as prescribed N/A N/A Experienced any changes in pain level or No No management Left Footwear Regular Shoe Regular Shoe Right Footwear Regular Shoe Surgical Shoe with pressure relief insole Pain Scale: 0-10 Numeric Is Patient Pain Free? Yes Yes - Nurse 1 - General Ulcer Measurement Start: 07/28/22 10:30 Freq: Status: Active Protocol: Activity Type Activity Date Activity User E-sign Co-sign Detail Recorded Client Recorded Date Recorded By Document 07/28/22 11:35 KR [id number] 07/28/22 11:36 KR Document 08/11/22 10:31 AK [id number] 08/11/22 10:33 AK 07/28/22 08/11/22 11:35 10:31 Wound Center Nurse 1 #2- R 1ST MET HEAD -Combined with other wound No -Current Size (cm) - Length 0.2 0.4 -Current Size (cm) - Width 1 0.5 -Current Size (cm) - Depth 0.1 0.1 -Total Square Cm 0.2 0.20 -Photo Taken Yes -Tunneling No -Undermining/Tunneling No -Circular Undermining No -Change in Wound Grade/Stage No -Exudate Amt Small Small -Exudate Type Serosanguineous Serosanguineous -Wound Margin Distinct, Distinct, Outline Outline Attached Attached -Granulation Amt Medium (34-66%) Small (1-33%) -Granulation Quality [place] -Slough/Fibrin Yes -Necrosis Amt None Present (0 Small (1-33%) %) -Necrotic Tissue Type Adherent Slough -Structure Exposed N/A -Texture (Kathya-wound Skin Appearance) Assessed, Assessed,Callus Scarring -Moisture (Kathya-wound Skin Appearance) No Abnormality, Assessed,Dry/ Assessed Scaly -Color (Kathya-wound Skin Appearance) No Abnormality, No Abnormality, Assessed Assessed -Temperature (Kathya-wound Skin No Abnormality No Abnormality Appearance) (Pt Warm) (Pt Warm) -Tenderness on Palpation (Kathya-wound No No Skin Appearance) -Ulcer Cleansing Rinsed/ Rinsed/ Irrigated with Irrigated with Saline Saline -Foul Odor after Cleansing No No -Anesthetic Used 5% Lidocaine 5% Lidocaine Gel Gel - Nurse 2 - General Ulcer CM Notes Start: 07/28/22 10:30 Freq: Status: Active Protocol: Activity Type Activity Date Activity User E-sign Co-sign Detail Recorded Client Recorded Date Recorded By Document 07/28/22 12:40 PL [id number] 07/28/22 12:40 PL Document 08/11/22 12:00 PL [id number] 08/11/22 12:01 PL 07/28/22 08/11/22 12:40 12:00 Wound Center Nurse 2 #2- R 1ST MET HEAD -Time 10:07 11:15 -Correct Patient Yes Yes -Correct Side, Site, Position Yes Yes -Correct Procedure Yes Yes -Procedure Performed Yes Yes -Type of Procedure Debridement Debridement -Clinical Debridement Subcutaneous Subcutaneous -Tissue Removed Subcutaneous Subcutaneous -Post Debridement (cm) - Length 0.4 0.3 -Post Debridement (cm) - Width 0.5 0.5 -Post Debridement (cm) - Depth 0.1 0.1 -Total Square (Post) (cm) 0.20 0.15 -Area of Debridement (cm) - Length 0.4 0.3 -Area of Debridement (cm) - Width 0.5 0.5 -Total Square (Area) (cm) 0.20 0.15 -Tunneling No No -Undermining/Tunneling No No -Circular Undermining No No -Wound/Ulcer Outcome Not Healed Not Healed -Ulcer Cleansing Rinsed/ Rinsed/ Irrigated with Irrigated with Saline Saline -Foul Odor after Cleansing No No -Bioengineered Tissue No No -Bleeding Controlled with Pressure Pressure -Treatment Response Procedure Procedure Tolerated Well Tolerated Well -Debridement - Subq, 1st 20sq cm Yes Yes Pain Scale: 0-10 Numeric Is Patient Pain Free? Yes Yes WC - Nurse 3 - General Ulcer D/C NN Start: 07/28/22 10:30 Freq: Status: Active Protocol: Activity Type Activity Date Activity User E-sign Co-sign Detail Recorded Client Recorded Date Recorded By Document 07/28/22 10:31 VT [id number] 07/28/22 10:40 VT Document 08/11/22 12:03 AK [id number] 08/11/22 12:04 AK 07/28/22 08/11/22 10:31 12:03 Wound Care Nurse 3 #2- R 1ST MET HEAD -Ulcer Cleansing Rinsed/ Irrigated with Saline -Foul Odor after Cleansing No -Negative Pressure Wound Therapy N/A -Other Dressing collagen powder collagen and , AMD pad, AMD kerlix -Primary Dressing Covered/Secured with Dry Gauze,Dry Dry Gauze & Gauze & Roll Roll Gauze, Gauze,Secured Secured with with Tape Tape Left -Compression Wrap Juliano Wrap Pain Scale: 0-10 Numeric Is Patient Pain Free? Yes Yes WC - Visit Discharge Discharge Condition Stable Stable Ambulatory Status Ambulatory,Cane Ambulatory Transportation Private Auto Private Auto Accompanied by Medication Reconcilliation completed & No Yes provided to patient/care provider Clinical Summary of Care Provided Yes Yes Notes: and pt verbalized understanding of dressing. Assessment/Plan Assessment/Plan (1) Non-pressure chronic ulcer of other part of right foot with fat layer exposed: CODE(S): L97.512 - Non-pressure chronic ulcer of other part of right foot with fat layer exposed (2) Non-pressure chronic ulcer of other part of left foot with fat layer exposed: CODE(S): L97.522 - Non-pressure chronic ulcer of other part of left foot with fat layer exposed (3) Diabetes mellitus, type II: CODE(S): E11.9 - Type 2 diabetes mellitus without complications (4) Callus of foot: CODE(S): L84 - Corns and callosities (5) Generalized weakness: CODE(S): R53.1 - Weakness (6) Acute renal insufficiency: CODE(S): N28.9 - Disorder of kidney and ureter, unspecified (7) Parkinson's disease dementia: CODE(S): G20 - Parkinson's disease; F02.80 - Dementia in other diseases classified elsewhere, unspecified severity, without behavioral disturbance, psychotic disturbance, mood disturbance, and anxiety QUALIFIERS: Qualified Code(s): F02.80 - Dementia in other diseases classified elsewhere without behavioral disturbance (8) Parkinsons disease: CODE(S): G20 - Parkinson's disease PLAN: Plan Patient seen and evaluated. Ulceration distal tuft third digit remains healed with some hyperkeratotic tissue.? No signs of infection.? Ulceration caused secondary to pressure via hammertoe deformity.?Continued offloading of the digit with a crest pad. Sub- fourth metatarsal head right demonstrates callus tissue buildup with some subdermal hemorrhage this was sharply debrided with a 313 blade. Debridement of subfirst metatarsal head ulcer of the right foot performed as noted in the clinical panel above.? Ulceration measures 0.4 cm x 0.4 cm x 0.1 cm. No signs of infection. Offloading pad remains in place to bottom of his surgical shoe of the right foot.?I advised the patient to continue to stay off of his feet as much as possible to aid in pressure reduction for healing of this ulcerative site, however I do not believe he is doing this consistently due to ulceration failing to progress.? Collagen powder and PHMB dressing applied to the subfirst metatarsal wound and dressed with dry sterile dressing. Offloading: He did tolerate total contact cast well.? However we will continue to refrain from reapplication.? We will continue offloading with diabetic shoe inserts/surgical shoe and plantar offloading padding due to 's concerns of walking. Due to difficult ambulation he has not performed well with cam boot in the past. I discussed with the patient to continue to check his feet daily for any signs of wounds or pressure sites which may contribute to wound formation.?He is to remain in the diabetic shoes with inserts for proper offloading of the pressure sites and to not wear house sandals or house slippers or go barefoot.? I reminded them that his wounds are caused secondarily from pressure due to his atrophic fat pad at the forefoot and plantigrade metatarsals creating direct pressure at the forefoot and pressure reduction is the fields to continued healing and prevention or recurrence of wounds.? I again stressed the importance of staying off of his feet as much as possible to allow the wounds to reducing pressure and allow for healing.? However due to the increased callus tissue buildup and failure to progress, I feel compliance with proper offloading rem ains an issue. I discussed the localized signs of infection with the patient's and his today and instructed them if they notice any increased redness around the wound, purulent drainage, malodor, red streaking going up the leg, or if he experiences any nausea, vomiting, fever, chills to go to the emergency department for treatment as these are signs of a progressing infection.? and patient voiced understanding of this. The following work up and care recommendations were made: Dressing: Collagen Powder and PHMB with dry sterile dressing. Wash: Soap and water Tissue growth optimization: Collagen powder with PHMB Offload: Diabetic shoe with inserts and plantar offloading padding left and right. 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 Atrophic fat pad at the forefoot.? Parkinson's disease. ? I answered all the patient's questions.? To return to the wound healing center in 2 weeks or call sooner if the patient has any questions or concerns. Note: Omnistream speech recognition yarn examiner skeins software was used to create portions of this document. Sound-alike and misspelled words, as well as other yarn examiner skeins errors may be contained in the documentation.
[2022-08-25 11:18] VITALS: BP 124/65; PULSE 77; TEMP 35.5; BMI 21.2
== END 2022-08-27 23:59 | disposition home or self-care (01) ==
LOC: WC 10:30
PROVIDERS: PCP Nurse Practitioner Family; Visit Provider Student in an Organized Health Care Education/Training Program
DX: E11.621 Type 2 diabetes mellitus with foot ulcer (principal); G20 Parkinson's disease; L97.512 Non-pressure chronic ulcer of other part of right foot with fat layer exposed; F02.80 Dementia in other diseases classified elsewhere, unspecified severity, without behavioral disturbance, psychotic disturbance, mood disturbance, and anxiety; E78.5 Hyperlipidemia, unspecified; I10 Essential (primary) hypertension; L84 Corns and callosities
CPT/HCPCS: 11042

== ENCOUNTER 2022-09-22 10:15 | Outpatient (RCR) | payer MEDICARE, OTHER, MEDICAID, SELFPAY ==
[2022-08-28 00:17] VITALS: BP 124/65; PULSE 77; RESP 16; TEMP 35.5; BMI 21.2
[2022-09-08 10:21] VITALS: BP 106/62; PULSE 66; TEMP 36.4; BMI 21.2
--- NOTE | 2022-09-08 11:52 | PN.PCM_ITS ---
History of Present Illness Date of Service: 09/08/22 Chief Complaint: Foot wound History of Wound: 75-year-old male who was referred for evaluation relative to wounds on his feet. He has apparently been under the care of Dr. Cheung, podiatric specialist, recently, though no such medical records are available. According to the patient, and his , the patient was evaluated in Dr. Cheung's office, and the calluses on the plantar aspect of both feet were scraped. Bleeding was encountered. The patient indicates that he was then referred for further evaluation and management at the [facility]. The patient's pre-existing medical problems include diabetes mellitus, hyperlipidemia, Parkinson's disease, hypertension, debility, and generalized weakness. Subjective Subjective This 76-year-old male presents for follow-up to the wound care center with a right foot subfirst metatarsal ulceration. ?He is accompanied by his today who assists him in dressing changes daily.?His states visiting nursing checks on him twice a week.?He has remained in his surgical shoe with plantar offloading padding. He is trying to offload to the right foot. He denies any constitutional symptoms today.? He has no other complaints today. Objective Data Objective Data Vital Signs: Vital Signs Temp Pulse Resp BP 97.5 F L 66 16 106/62 09/08/22 10:21 09/08/22 10:21 08/28/22 00:17 09/08/22 10:21 Weight: 67.132 kg Body Mass Index (BMI) 21.2 Physical Exam Const alert, oriented x3 and no apparent distress General Appearance: cooperative HEENT normocephalic Eyes General Eye: normal appearance of both eyes Neck General: normal visual inspection Lymph Lymphatic: no lymphadenopathy noted and no lymphedema noted Resp normal respiratory effort Cardio regular rate and regular rhythm Extremity normal capillary refill, no joint enlargement, no calf tenderness and no pedal edema Skin no rashes or lesions noted, skin turgor normal and no jaundice Skin Narrative: Skin is thin/atrophic bilaterally Fat pad atrophy bilaterally to the forefoot with prominent metatarsal heads Wound Narrative: Right foot: Sub first metatarsal ulceration measures 0.2 cm x 0.3 cm x 0.1 cm.? Ulcerative base demonstrates healthy granular tissue with surrounding hyperkeratotic tissue.? No signs of infection. Left foot: Hyperkeratotic tissue distal tuft of 3rd digit secondary to hammertoe deformity. Site is healed and offloaded with padding. Neuro moves all extremities Debridement Note Debridement Note Wound debrided: Sub first metatarsal head Laterality: Right Wound Grade/Stage: Owusu stage I Type of Debridement: Excisional debridement Anesthesia Used: 5% Lidocaine Gel Depth: Down to and including healthy tissue and in the subcutaneous layer Percentage of wound debrided: 100 Instrument Used: - (313 blade) Tissue Removed: Fibrous, devitalized subcutaneous, biofilm, slough Severity: Fat Layer Exposed Amount of bleeding with debridement: Mild Bleeding Controlled with: Compression and gauze Patient tolerated procedure: Patient tolerated procedure well Post-Debridement Measurements and Additional Note: Post-Debridement Measurements/Treatment - Nurse 1 - General Ulcer Assessment Start: 09/08/22 10:21 Freq: Status: Active Protocol: TAMIR Activity Type Activity Date Activity User E-sign Co-sign Detail Recorded Client Recorded Date Recorded By Document 09/08/22 10:21 MARÍA [id number] 09/08/22 10:25 MARÍA 09/08/22 10:21 WC - Today's Visit Information Type of service Follow-up Visit (Physician/SOCIAL SECURITY SPECIALIST ) Arrival Mode Ambulatory Patient Identification Verified (Name & Yes ) Height and Weight Body Mass Index (BMI) 21.2 BMI Classification Normal Vital Signs Temperature (97.8 F-99.1 F) 97.5 F L Temperature Source Temporal Pulse Rate (60-100) 66 Pulse Location Monitor Blood Pressure (90/60-120/80) 106/62 Blood Pressure Mean (mm Hg) 76 Source Monitor Position Sitting Blood Pressure Location Right Arm History Since Last Visit- (Skip if this is Patient's initial visit) Have you changed medications since your No last visit? Any new allergies or adverse reactions No Had a fall/change in ADL's that may No increase risk of falls Signs or symptoms of abuse and/or No neglect since last visit Have you been in the hospital since your No last visit? Has dressing in place as prescribed Yes Has compression in place as prescribed N/A Has offloadiing in place as prescribed Yes Experienced any changes in pain level or No management Left Footwear Regular Shoe Right Footwear Surgical Shoe with pressure relief insole Pain Scale: 0-10 Numeric Is Patient Pain Free? Yes - Nurse 1 - General Ulcer Measurement Start: 09/08/22 10:21 Freq: Status: Active Protocol: Activity Type Activity Date Activity User E-sign Co-sign Detail Recorded Client Recorded Date Recorded By Document 09/08/22 10:21 AK [id number] 09/08/22 10:25 MARÍA 09/08/22 10:21 Wound Center Nurse 1 #2- R 1ST MET HEAD -Current Size (cm) - Length 0.2 -Current Size (cm) - Width 0.2 -Current Size (cm) - Depth 0.1 -Total Square Cm 0.04 -Exudate Amt None Present -Wound Margin Distinct, Outline Attached -Granulation Amt Small (1-33%) -Granulation Quality Hyde -Necrosis Amt None Present (0 %) -Texture (Kathya-wound Skin Appearance) Assessed,Callus ,Scarring -Moisture (Kathya-wound Skin Appearance) No Abnormality, Assessed -Color (Kathya-wound Skin Appearance) No Abnormality, Assessed -Temperature (Kathya-wound Skin No Abnormality Appearance) (Pt Warm) -Tenderness on Palpation (Kathya-wound No Skin Appearance) -Ulcer Cleansing Rinsed/ Irrigated with Saline -Foul Odor after Cleansing No -Anesthetic Used 5% Lidocaine Gel WC - Nurse 3 - General Ulcer D/C NN Start: 09/08/22 10:21 Freq: Status: Active Protocol: Activity Type Activity Date Activity User E-sign Co-sign Detail Recorded Client Recorded Date Recorded By Document 09/08/22 10:46 AMILCAR [id number] 09/08/22 10:47 AMILCAR 09/08/22 10:46 Wound Care Nurse 3 -Ulcer Cleansing Rinsed/ Irrigated with Saline -Other Dressing collagen powder -Primary Dressing Covered/Secured with Dry Gauze, Secured with Tape Pain Scale: 0-10 Numeric Is Patient Pain Free? 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: CODE(S): L97.522 - Non-pressure chronic ulcer of other part of left foot with fat layer exposed (3) Diabetes mellitus, type II: CODE(S): E11.9 - Type 2 diabetes mellitus without complications (4) Callus of foot: CODE(S): L84 - Corns and callosities (5) Generalized weakness: CODE(S): R53.1 - Weakness (6) Acute renal insufficiency: CODE(S): N28.9 - Disorder of kidney and ureter, unspecified (7) Parkinsons disease: CODE(S): G20 - Parkinson's disease (8) Parkinson's disease dementia: CODE(S): G20 - Parkinson's disease; F02.80 - Dementia in other diseases classified elsewhere, unspecified severity, without behavioral disturbance, psychotic disturbance, mood disturbance, and anxiety QUALIFIERS: Qualified Code(s): F02.80 - Dementia in other diseases classified elsewhere without behavioral disturbance PLAN: Plan Patient seen and evaluated. Ulceration distal tuft third digit remains healed with some hyperkeratotic tissue.? No signs of infection.? Ulceration caused secondary to pressure via hammertoe deformity.?Continued offloading of the digit with a crest pad. Sub- fourth metatarsal head right demonstrates callus tissue buildup with some subdermal hemorrhage this was sharply debrided with a 313 blade. Debridement of subfirst metatarsal head ulcer of the right foot performed as noted in the clinical panel above.? Ulceration measures 0.2 cm x 0.3 cm x 0.1 cm. No signs of infection. Offloading pad remains in place to bottom of his surgical shoe of the right foot.?I advised the patient to continue to stay off of his feet as much as possible to aid in pressure reduction for healing of this ulcerative site, however I do not believe he is doing this consistently due to ulceration failing to progress.? Collagen powder and PHMB dressing applied to the subfirst metatarsal wound and dressed with dry sterile dressing. Offloading: He did tolerate total contact cast well.? However we will continue to refrain from reapplication.? We will continue offloading with diabetic shoe inserts/surgical shoe and plantar offloading padding due to 's concerns of walking.? Due to difficult ambulation he has not performed well with CAM boot in the past. I discussed with the patient to continue to check his feet daily for any signs of wounds or pressure sites which may contribute to wound formation.?He is to remain in the diabetic shoes with inserts for proper offloading of the pressure sites and to not wear house sandals or house slippers or go barefoot.? I reminded them that his wounds are caused secondarily from pressure due to his atrophic fat pad at the forefoot and plantigrade metatarsals creating direct pressure at the forefoot and pressure reduction is the fields to continued healing and prevention or recurrence of wounds.? I again stressed the importance of staying off of his feet as much as possible to allow the wounds to reducing pressure and allow for healing.? However due to the increased callus tissue buildup and failure to progress, I feel compliance with proper offloading remains an issue. I discussed the localized signs of infection with the patient's and his today and instructed them if they notice any increased redness around the wound, purulent drainage, malodor, red streaking going up the leg, or if he experiences any nausea, vomiting, fever, chills to go to the emergency department for treatment as these are signs of a progressing infection.? and patient voiced understanding of this. The following work up and care recommendations were made: Dressing: Collagen Powder and PHMB with dry sterile dressing. Wash: Soap and water Tissue growth optimization: Collagen powder with PHMB Offload: Diabetic shoe with inserts and plantar offloading padding left and right. 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 Atrophic fat pad at the forefoot.? Parkinson's disease. ? I answered all the patient's questions.? To return to the wound healing center in 2 weeks or call sooner if the patient has any questions or concerns. Note: [employer] speech recognition surface supply breathing apparatus software was used to create portions of this document. Sound-alike and misspelled words, as well as other surface supply breathing apparatus errors may be contained in the documentation.
[2022-09-22 10:24] VITALS: BP 130/71; PULSE 70; RESP 16; TEMP 36.2; BMI 21.2
--- NOTE | 2022-09-22 12:20 | PN.PCM_ITS ---
History of Present Illness Date of Service: 09/22/22 Chief Complaint: Foot wound History of Wound: 75-year-old male who was referred for evaluation relative to wounds on his feet. He has apparently been under the care of Dr. Cheung, podiatric specialist, recently, though no such medical records are available. According to the patient, and his , the patient was evaluated in Dr. Cheung's office, and the calluses on the plantar aspect of both feet were scraped. Bleeding was encountered. The patient indicates that he was then referred for further evaluation and management at the [facility]. The patient's pre-existing medical problems include diabetes mellitus, hyperlipidemia, Parkinson's disease, hypertension, debility, and generalized weakness. Subjective Subjective This 76-year-old male presents for follow-up to the wound care center with a right foot subfirst metatarsal ulceration. ?He is accompanied by his today who assists him in dressing changes daily.?His states visiting nursing checks on him twice a week.?He has remained in his surgical shoe with plantar offloading padding. He is trying to offload to the right foot. He denies any constitutional symptoms today.? He has no other complaints today. Objective Data Objective Data Vital Signs: Vital Signs Temp Pulse Resp BP 97.1 F L 70 16 130/71 H 09/22/22 10:24 09/22/22 10:24 09/22/22 10:24 09/22/22 10:24 Weight: 67.132 kg Body Mass Index (BMI) 21.2 Physical Exam Const alert, oriented x3 and no apparent distress General Appearance: cooperative HEENT normocephalic Eyes General Eye: normal appearance of both eyes Neck General: normal visual inspection Lymph Lymphatic: no lymphadenopathy noted and no lymphedema noted Resp normal respiratory effort Cardio regular rate and regular rhythm Extremity normal capillary refill, no joint enlargement, no calf tenderness and no pedal edema Skin no rashes or lesions noted, skin turgor normal and no jaundice Skin Narrative: Skin is thin/atrophic bilaterally Fat pad atrophy bilaterally to the forefoot with prominent metatarsal heads Wound Narrative: Right foot: Sub first metatarsal ulceration measures 0.1 cm x 0.1 cm x 0.1 cm.? Ulcerative base demonstrates healthy granular tissue with surrounding hyperkeratotic tissue.? No signs of infection. Left foot: Hyperkeratotic tissue distal tuft of 3rd digit secondary to hammertoe deformity. Site is healed and offloaded with padding. Neuro moves all extremities Debridement Note Debridement Note Wound debrided: Sub first metatarsal Laterality: Right Wound Grade/Stage: Ow[place]u stage I Type of Debridement: Excisional debridement Anesthesia Used: 5% Lidocaine Gel Depth: Down to and including healthy tissue and in the subcutaneous layer Percentage of wound debrided: 100 Instrument Used: - (313 blade) Tissue Removed: Fibrous, devitalized subcutaneous, biofilm, slough Severity: Fat Layer Exposed Amount of bleeding with debridement: Mild Bleeding Controlled with: Compression and gauze Patient tolerated procedure: Patient tolerated procedure well Post-Debridement Measurements and Additional Note: Post-Debridement Measurements/Treatment - Nurse 1 - General Ulcer Assessment Start: 09/08/22 10:21 Freq: Status: Active Protocol: TAMIR Activity Type Activity Date Activity User E-sign Co-sign Detail Recorded Client Recorded Date Recorded By Document 09/08/22 10:21 AK [id number] 09/08/22 10:25 AK Document 09/22/22 10:24 SIMRAN [id number] 09/22/22 10:25 SIMRAN 09/08/22 09/22/22 10:21 10:24 - Today's Visit Information Type of service Follow-up Visit Follow-up Visit (Physician/PRODUCTION POSTING CLERK (Physician/PRODUCTION POSTING CLERK ) ) Arrival Mode Ambulatory Ambulatory Transfer Assistance Manual Accompanied by Patient Identification Verified (Name & Yes Yes ) Patient Requires Transmission-Based No Precautions Height and Weight Body Mass Index (BMI) 21.2 21.2 BMI Classification Normal Normal Vital Signs Temperature (97.8 F-99.1 F) 97.5 F L 97.1 F L Temperature Source Temporal Temporal Pulse Rate (60-100) 66 70 Pulse Location Monitor Monitor Respiratory Rate (12-18) 16 Respiratory rate source Observation Blood Pressure (90/60-120/80) 106/62 130/71 H Blood Pressure Mean (mm Hg) 76 90 Source Monitor Monitor Position Sitting Semi-Fowlers Blood Pressure Location Right Arm Left Arm History Since Last Visit- (Skip if this is Patient's initial visit) Have you changed medications since your No No last visit? Any new allergies or adverse reactions No No Had a fall/change in ADL's that may No No increase risk of falls Signs or symptoms of abuse and/or No No neglect since last visit Have you been in the hospital since your No No last visit? Has dressing in place as prescribed Yes Yes Has compression in place as prescribed N/A N/A Has offloadiing in place as prescribed Yes No Experienced any changes in pain level or No No management Left Footwear Regular Shoe Regular Shoe Right Footwear Surgical Shoe Regular Shoe with pressure relief insole Pain Scale: 0-10 Numeric Is Patient Pain Free? Yes Yes WC - Nurse 1 - General Ulcer Measurement Start: 09/08/22 10:21 Freq: Status: Active Protocol: Activity Type Activity Date Activity User E-sign Co-sign Detail Recorded Client Recorded Date Recorded By Document 09/08/22 10:21 AK [id number] 09/08/22 10:25 AK Document 09/22/22 10:24 JF [id number] 09/22/22 10:25 JF 09/08/22 09/22/22 10:21 10:24 Wound Center Nurse 1 #2- R 1ST MET HEAD -Combined with other wound No -Current Size (cm) - Length 0.2 0.1 -Current Size (cm) - Width 0.2 0.1 -Current Size (cm) - Depth 0.1 0.3 -Total Square Cm 0.04 0.01 -Photo Taken Yes -Epithelialization None Present -Tunneling No -Undermining/Tunneling No -Circular Undermining No -Exudate Amt None Present None Present -Wound Margin Distinct, Flat & Intact Outline Attached -Granulation Amt Small (1-33%) None Present (0 %) -Granulation Quality [place] -Slough/Fibrin Yes -Necrosis Amt None Present (0 Small (1-33%) %) -Necrotic Tissue Type Adherent Slough -Structure Exposed N/A -Texture (Kathya-wound Skin Appearance) Assessed,Callus Assessed,Callus ,Scarring -Moisture (Kathya-wound Skin Appearance) No Abnormality, Assessed,Dry/ Assessed Scaly -Color (Kathya-wound Skin Appearance) No Abnormality, Assessed Assessed -Temperature (Kathya-wound Skin No Abnormality No Abnormality Appearance) (Pt Warm) (Pt Warm) -Tenderness on Palpation (Kathya-wound No No Skin Appearance) -Ulcer Cleansing Rinsed/ Rinsed/ Irrigated with Irrigated with Saline Saline -Foul Odor after Cleansing No No -Anesthetic Used 5% Lidocaine 5% Lidocaine Gel Gel Lower Limb Edema Present NA - Nurse 2 - General Ulcer CM Notes Start: 09/08/22 10:21 Freq: Status: Active Protocol: Activity Type Activity Date Activity User E-sign Co-sign Detail Recorded Client Recorded Date Recorded By Document 09/08/22 12:05 PL [id number] 09/08/22 12:06 PL Document 09/22/22 11:38 PL [id number] 09/22/22 11:39 PL 09/08/22 09/22/22 12:05 11:38 Wound Center Nurse 2 #2- R 1ST MET HEAD -Time 10:32 10:52 -Correct Patient Yes Yes -Correct Side, Site, Position Yes Yes -Correct Procedure Yes Yes -Procedure Performed Yes Yes -Type of Procedure Debridement -Type of Procedure Debridement -Clinical Debridement Subcutaneous Subcutaneous -Tissue Removed Subcutaneous Subcutaneous -Post Debridement (cm) - Length 0.1 0.1 -Post Debridement (cm) - Width 0.1 0.1 -Post Debridement (cm) - Depth 0.1 0.1 -Total Square (Post) (cm) 0.01 0.01 -Area of Debridement (cm) - Length 0.1 0.1 -Area of Debridement (cm) - Width 0.1 0.1 -Total Square (Area) (cm) 0.01 0.01 -Tunneling No No -Undermining/Tunneling No No -Circular Undermining No No -Wound/Ulcer Outcome Not Healed Not Healed -Ulcer Cleansing Rinsed/ Rinsed/ Irrigated with Irrigated with Saline Saline -Foul Odor after Cleansing No No -Bioengineered Tissue No No -Bleeding Controlled with Pressure Pressure -Treatment Response Procedure Procedure Tolerated Well Tolerated Well -Debridement - Subq, 1st 20sq cm Yes Yes Pain Scale: 0-10 Numeric Is Patient Pain Free? Yes Yes WC - Nurse 3 - General Ulcer D/C NN Start: 09/08/22 10:21 Freq: Status: Active Protocol: Activity Type Activity Date Activity User E-sign Co-sign Detail Recorded Client Recorded Date Recorded By Document 09/08/22 10:46 KR [id number] 09/08/22 10:47 KR Document 09/22/22 11:26 AK [id number] 09/22/22 11:27 AK 09/08/22 09/22/22 10:46 11:26 Wound Care Center Nurse 3 #2- R 1ST MET HEAD -Ulcer Cleansing Rinsed/ Rinsed/ Irrigated with Irrigated with Saline Saline -Foul Odor after Cleansing No -Negative Pressure Wound Therapy N/A -Other Dressing collagen powder collagen powder and bunion pad -Primary Dressing Covered/Secured with Dry Gauze, Dry Gauze & Secured with Roll Gauze, Tape Secured with Tape Pain Scale: 0-10 Numeric Is Patient Pain Free? Yes Yes WC - Visit Discharge Discharge Condition Stable Stable Ambulatory Status Ambulatory,Cane Ambulatory Transportation Private Auto Private Auto Accompanied by Medication Reconcilliation completed & Yes provided to patient/care provider Clinical Summary of Care Provided Yes Assessment/Plan Assessment/Plan (1) Non-pressure chronic ulcer of other part of right foot with fat layer exposed: CODE(S): L97.512 - Non-pressure chronic ulcer of other part of right foot with fat layer exposed (2) Non-pressure chronic ulcer of other part of left foot with fat layer exposed: CODE(S): L97.522 - Non-pressure chronic ulcer of other part of left foot with fat layer exposed (3) Diabetes mellitus, type II: CODE(S): E11.9 - Type 2 diabetes mellitus without complications (4) Callus of foot: CODE(S): L84 - Corns and callosities (5) Generalized weakness: CODE(S): R53.1 - Weakness (6) Acute renal insufficiency: CODE(S): N28.9 - Disorder of kidney and ureter, unspecified (7) Parkinsons disease: CODE(S): G20 - Parkinson's disease (8) Parkinson's disease dementia: CODE(S): G20 - Parkinson's disease; F02.80 - Dementia in other diseases classified elsewhere, unspecified severity, without behavioral disturbance, psychotic disturbance, mood disturbance, and anxiety QUALIFIERS: Qualified Code(s): F02.80 - Dementia in other diseases classified elsewhere without behavioral disturbance PLAN: Plan Patient seen and evaluated. Ulceration distal tuft third digit remains healed with some hyperkeratotic tissue.? No signs of infection.? Ulceration caused secondary to pressure via hammertoe deformity.?Continued offloading of the digit with a crest pad. Sub- fourth metatarsal head right demonstrates callus tissue buildup with some subdermal hemorrhage this was sharply debrided with a 313 blade. Debridement of subfirst metatarsal head ulcer of the right foot performed as noted in the clinical panel above.? Ulceration measures 0.1 cm x 0.1 cm x 0.1 cm. No signs of infection. Offloading pad remains in place to bottom of his surgical shoe of the right foot.?I advised the patient to continue to stay off of his feet as much as possible to aid in pressure reduction for healing of this ulcerative site, however I do not believe he is doing this consistently due to ulceration failing to progress.? Collagen powder and PHMB dressing applied to the subfirst metatarsal wound and dressed with dry sterile dressing. This ulcer is nearing closure. Offloading: He did tolerate total contact cast well.? However we will continue to refrain from reapplication.? We will continue offloading with diabetic shoe inserts/surgical shoe and plantar offloading padding due to 's concerns of walking.? Due to difficult ambulation he has not performed well with CAM boot in the past. I discussed with the patient to continue to check his feet daily for any signs of wounds or pressure sites which may contribute to wound formation.?He is to remain in the diabetic shoes with inserts for proper offloading of the pressure sites and to not wear house sandals or house slippers or go barefoot.? I reminded them that his wounds are caused secondarily from pressure due to his atrophic fat pad at the forefoot and plantigrade metatarsals creating direct pressure at the forefoot and pressure reduction is the fields to continued healing and prevention or recurrence of wounds.? I again stressed the importance of staying off of his feet as much as possible to allow the wounds to reducing pressure and allow for healing.? However due to the increased callus tissue buildup and failure to progress, I feel compliance with proper offloading remains an issue. I discussed the localized signs of infection with the patient's and his today and instructed them if they notice any increased redness around the wound, purulent drainage, malodor, red streaking going up the leg, or if he experiences any nausea, vomiting, fever, chills to go to the emergency department for treatment as these are signs of a progressing infection.? and patient voiced understanding of this. The following work up and care recommendations were made: Dressing: Collagen Powder and PHMB with dry sterile dressing. Wash: Soap and water Tissue growth optimization: Collagen powder with PHMB Offload: Diabetic shoe with inserts and plantar offloading padding left and right. 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 Atrophic fat pad at the forefoot.? Parkinson's disease. ? I answered all the patient's questions.? To return to the wound healing center in 2 weeks or call sooner if the patient has any questions or concerns. Note: Expert TA speech recognition lagging machine operator software was used to create portions of this document. Sound-alike and misspelled words, as well as other lagging machine operator errors may be contained in the documentation.
== END 2022-09-27 23:59 | disposition home or self-care (01) ==
LOC: WC 10:15
PROVIDERS: PCP Nurse Practitioner Family; Visit Provider Student in an Organized Health Care Education/Training Program
DX: E11.621 Type 2 diabetes mellitus with foot ulcer (principal); G20 Parkinson's disease; L97.512 Non-pressure chronic ulcer of other part of right foot with fat layer exposed; F02.80 Dementia in other diseases classified elsewhere, unspecified severity, without behavioral disturbance, psychotic disturbance, mood disturbance, and anxiety; I10 Essential (primary) hypertension; E78.5 Hyperlipidemia, unspecified; R53.1 Weakness
CPT/HCPCS: 11042

== ENCOUNTER 2022-09-28 12:58 | Emergency (ER) | payer MEDICARE, OTHER, MEDICAID, SELFPAY ==
[2022-09-28 12:59] VITALS: BP 195/95; PULSE 88; RESP 16; TEMP 35.7; O2SAT 98; BMI 19.5
[2022-09-28 13:23] VITALS: BP 183/93; PULSE 87; RESP 16; O2SAT 98
[2022-09-28 14:13] LABS: Bacteria 0 SEEN /hpf (None Seen); Mucous, Urine 0 SEEN /hpf (<or=2+); Squamous Epithelial Cells - UA 0 SEEN /hpf (0-5)
[2022-09-28 14:14] LABS: Absolute Lymphocyte Count 0.98 X10^3/uL (0.83-4.51); Absolute Neutrophil Count 7.5 X10^3/uL (2.0-7.7); Basophil# 0.02 X10^3/uL; Basophil% 0.2 % (0-1); Eosinophil# 0.01 X10^3/uL; Eosinophils% 0.1 % (0-5); Hematocrit 42.4 % (40-54); Hemoglobin 13.6 g/dL (13.0-16.5); Lymphocyte # 0.98 X10^3/ul (0.83-4.51); Lymphocyte % 10.4 % (19-41); Mean Corp Hgb Conc 32.1 g/dL (32-36); Mean Corpuscular Volume 96.6 fL (80-94); Monocyte# 0.86 X10^3/uL; Monocyte% 9.2 % (0-10); NRBC Flagged by Analyzer 0 % (0-5); Neutrophil # 7.47 X10^3/uL (2.7-7.7); Neutrophil % 79.7 % (47-70); Platelet Count 213 K/mm3 (150-450); RBC Distribution Width CV 12.5 % (11.6-14.6); RBC Distribution Width SD 44.1 fl (35.1-43.9); Red Blood Count 4.39 M/mm3 (4.6-6.2); White Blood Count 9.4 K/mm3 (4.4-11.0)
[2022-09-28 14:15] LABS: Color, Urine Yellow (Yellow); Glucose, Dipstick 1000 mg/dl (Normal); Ketone-Dipstick Negative (Negative); Leukocyte Esterase-Dipstick Negative /ul (Negative); Nitrite-Dipstick Negative (Negative); Occult Blood-Urine 25 /ul (Negative); Protein-Dipstick 30 mg/dl (Negative); Specific Gravity, Urine 1.015 (1.002-1.030); Urine Bilirubin Dipstick Negative (Negative); Urine Clarity Clear (Clear); Urine Urobilinogen Normal (Normal); Urine pH 6.5 (5.0 - 8.0)
--- NOTE | 2022-09-28 14:18 | CT_ITS ---
EXAM: CT ABDOMEN AND PELVIS WITHOUT INTRAVENOUS CONTRAST CLINICAL INDICATION: abdominal pain TECHNIQUE: Helically acquired images were obtained of the abdomen and pelvis without intravenous contrast. This CT exam was performed using one or more of the following dose reduction techniques: automated exposure control, adjustment of the mA and/or kV according to patient size, and/or use of iterative reconstruction technique. This report was created using [employer] report generation technology. COMPARISON: 06/01/2019 FINDINGS: LOWER THORAX: Unremarkable. Lung bases are clear. No cardiomegaly. No significant pericardial effusion. ABDOMEN: LIVER: Unremarkable. Homogeneous. GALLBLADDER AND BILE DUCTS: Unremarkable. No calcified gallstones. No gallbladder distention or wall edema. No intra- or extrahepatic biliary ductal dilation. PANCREAS: Unremarkable. No focal cystic mass. SPLEEN: Unremarkable. Normal size without focal cystic or solid mass. ADRENALS: Unremarkable. No nodules. KIDNEYS AND URETERS: Is a low-density mass in the left kidney compatible with a simple cyst which is stable from the reference exam. No follow-up imaging is necessary. STOMACH AND BOWEL: There is sigmoid diverticulosis with no evidence of diverticulitis. There are bladder diverticula with multiple bladder stones present. There is no ureteral obstruction. PELVIS: APPENDIX: No evidence of acute appendicitis. BLADDER: See above. REPRODUCTIVE: Unremarkable as visualized. No mass. ABDOMEN and PELVIS: INTRAPERITONEAL SPACE: Unremarkable. No ascites or other fluid collection. No free air. BONES/JOINTS: Unremarkable. No suspicious lytic or blastic abnormality. SOFT TISSUES: Unremarkable. No discrete abdominal or pelvic wall hernia. VASCULATURE: Unremarkable. Abdominal aorta is non-dilated. LYMPH NODES: Unremarkable. No enlarged lymph nodes. CT/Abdomen/Pelvis without Cont IMPRESSION: 1. Multiple bladder stones with no ureteral obstruction. There are bladder diverticula also present which have several stones within them. 2. Sigmoid diverticulosis with no evidence of diverticulitis. No acute abnormalities are identified. Electronically Signed: Carlo Krueger MD at 16:11 EST ,
--- NOTE | 2022-09-28 14:19 | EDS_ITS ---
HPI History of Present Illness Chief Complaint: Abd Pain Informant: patient and spouse/S.O. Onset/Context/Timing Onset: Today Narrative Narrative: Patient presents with from urgent care secondary to abdominal pain. Apparently patient complained abdominal pain after eating breakfast this morning. He denies having pain presently. He states it was in his lower abdomen. He has a history of dementia and Parkinson's disease and is limited on his ability to give history. does not believe he has had a fever. He states has been urinating and having normal bowel movements. [facility] Medical History Anxiety Callus of foot Depression Diabetes mellitus type 2 in nonobese Diarrhea Former smoker History of dementia Hypertension Parkinsons disease Home Medications donepezil 10 mg tablet (Aricept) 10 mg PO QHS memory 06/26/18 [History Last Taken 08/25/19] escitalopram oxalate 20 mg tablet (Lexapro) 20 mg PO DAILY anxiety 06/26/18 [History Last Taken 08/26/19] atorvastatin 10 mg tablet 10 mg PO QHS cholesterol 08/26/19 [History Last Taken 08/25/19] carbidopa ER 25 mg-levodopa 100 mg tablet,extended release 1 tab PO TID parkinsons 08/26/19 [History Last Taken 08/26/19] cholecalciferol (vitamin D3) 25 mcg (1,000 unit) tablet 5,000 unit PO DAILY supplement 08/26/19 [History Last Taken 08/26/19] acidophilus 25 million cell-pectin, citrus 100 mg tablet 1 tab PO DAILY 09/11/19 [Rx Last Taken Unknown] metformin 1,000 mg tablet 1,000 mg PO BIDCM 09/11/19 [Rx Last Taken Unknown] chlorpheniramine-dextromethorphan 4 mg-30 mg tablet (Coricidin HBP Cough and Cold) 1 tab PO Q6H PRN COLD/COUGH 09/07/21 [History Last Taken Unknown] Allergy/AdvReac Type Severity Reaction Status Date / Time codeine AdvReac Nausea/Vom/ Verified 09/07/21 09:37 Diarrhea Family History Father Hypertension Heart disease Surgical History s/p stomach surgery Social History Smoking Status: Former smoker alcohol intake: never ROS ROS ED Constitutional Constitutional ED: Denies chills or fever(s) Eyes Eyes: Denies change in vision or discharge from eye(s) ENT ENT ED: Denies discharge from eye(s), rhinorrhea or sore throat Cardiovascular Cardiovascular: Denies chest pain or palpitations Respiratory/Chest Respiratory/Chest: Denies cough or dyspnea Gastrointestinal Gastrointestinal: Reports abdominal pain; Denies diarrhea, nausea or vomiting Genitourinary Genitourinary ED: Denies difficulty urinating or dysuria Musculoskeletal Musculoskeletal: Denies back pain or extremity pain Integumentary Denies Abrasions or rash Neurologic Neurologic: Denies headache(s) Allergic/Immunologic Allergic/Immunologic ED: Denies lip swelling or urticaria EXAM Physical Exam Const Vital Signs: 09/28/22 12:59 09/28/22 13:23 09/28/22 15:38 Temperature 96.2 F L Temperature Source Temporal Pulse Rate 88 87 86 Respiratory Rate 16 16 16 Blood Pressure 195/95 H 183/93 H 200/98 H Blood Pressure Mean 128 123 132 Pulse Ox 98 98 96 Oxygen Delivery Method Room Air Room Air Room Air Positive well nourished and well developed General Appearance ED: well developed HEENT Reports normocephalic and head/scalp atraumatic Eyes PERRL and EOMs intact bilaterally Neck supple Chest Wall inspection of chest normal and palpation of chest normal Resp normal respiratory effort and clear to auscultation bilaterally Cardio regular rate and regular rhythm GI non-tender Auscultation: hypoactive bowel sounds Palpation: soft Extremity normal to inspection Neuro Neuro Narrative: Alert and answers some questions appropriately. Defers most questions to . Moves all 4 extremities. Sensorium / Orientation: alert Psych mental status grossly normal Skin no rashes or lesions noted MDM MDM MDM Narrative Medical decision making narrative: Patient given IV fluids. Lab work obtained along with urinalysis. CT flank ordered. Lab Data Attestation: I reviewed the patient's lab results. Labs: Laboratory Results - last 24 hr 09/28/22 09/28/22 09/28/22 14:08 14:08 14:08 WBC 9.4 RBC 4.39 L Hgb 13.6 Hct 42.4 MCV 96.6 H MCH 31.0 MCHC 32.1 RDW Std Deviation 44.1 H RDW Coeff of Christie 12.5 Plt Count 213 MPV 11.0 Immature Gran % (Auto) 0.400 Neut % (Auto) 79.7 H Lymph % (Auto) 10.4 L [place] % (Auto) 9.2 Eos % (Auto) 0.1 Baso % (Auto) 0.2 Absolute Neuts (auto) 7.5 Absolute Lymphs (auto) 0.98 Nucleated RBC % 0 Sodium 137 Potassium 4.4 Chloride 101 Carbon Dioxide 32.0 Anion Gap 4 L BUN 25 H Creatinine 1.07 Estim Creat Clear Calc 52.05 Est GFR (MDRD) Af Amer 86 Est GFR (MDRD) Non-Af 71 BUN/Creatinine Ratio 23.4 H Glucose 241 H Calcium 9.8 Urine Color Yellow Urine Clarity Clear Urine pH 6.5 Ur Specific [place] 1.015 Urine Protein 30 H Urine Glucose (UA) 1000 H Urine Ketones Negative Urine Occult Blood 25 H Urine Nitrite Negative Urine Bilirubin Negative Urine Urobilinogen Normal Ur Leukocyte Esterase Negative Urine RBC 0-5 SEEN Urine WBC 5-10 SEEN Ur Squamous Epith Cells 0 SEEN Urine Bacteria 0 SEEN Urine Mucus 0 SEEN Radiography Diagnostic Testing: Clinical Impression(s) from Imaging Studies Abdomen/Pelvis CT 09/28/22 14:18 IMPRESSION: 1. Multiple bladder stones with no ureteral obstruction. There are bladder diverticula also present which have several stones within them. 2. Sigmoid diverticulosis with no evidence of diverticulitis. No acute abnormalities are identified. Electronically Signed: Carlo Krueger MD at 16:11 EST , Treatment and Re-Evaluation Narrative: Blood work is unremarkable with a normal white count. Chemistry studies unremarkable. Glucose is 241. Urinalysis does show some glucose but no sign of acute infection. 0 bacteria and no nitrites are noted. CT scan of the flank reveals multiple bladder stones but no ureteral obstruction. Sigmoid diverticulosis is noted without diverticulitis. On repeat evaluation patient is resting comfortably. He has no complaints. He will be discharged home to continue supportive care. Return instructions given. Discharge Plan Triage Chief Complaint: Abd Pain ED Provider: Heidy Chisholm Dx/Rx/DC Orders Clinical Impression: Abdominal pain Instructions: ED Abdominal Pain Unkn Cause Male... Prescriptions: No Action escitalopram oxalate [Lexapro] 20 mg tablet 20 mg PO DAILY donepezil [Aricept] 10 mg tablet 10 mg PO QHS carbidopa-levodopa 25MG-10 tablet extended release 1 tab PO TID atorvastatin 10 MG tablet 10 mg PO QHS cholecalciferol (vitamin D3) 1,000 UNIT tablet 5,000 unit PO DAILY metformin 1,000 MG tablet 1,000 mg PO BIDCM 0RF acidophilus-pectin, citrus 1 TABLET tablet 1 tab PO DAILY 0RF Coricidin HBP Cough and Cold 4-30 mg Tablet 1 tab PO Q6H PRN (Reason: COLD/COUGH) Primary Care Provider: Pawel Myers Referrals: Pawel Myers MD [Primary Care Provider] - As Needed Disposition Disposition: Home, Self Care
[2022-09-28 14:21] LABS: Red Blood Cells-Urine 0-5 SEEN /hpf (0-5); White Blood Cells 5-10 SEEN /hpf (0-5)
[2022-09-28 14:32] LABS: Anion Gap 4 (5-15); BUN 25 mg/dL (7-18); BUN/Creat Ratio 23.4 RATIO (10-20); Calcium,Total 9.8 mg/dL (8.5-10.1); Chloride 101 mmol/L (98-107); Creatinine, Serum 1.07 mg/dL (0.70-1.30); EST Glomerular Filtration Rate 71 mL/min (>60); Est Glom Filt Rate - Afr Amer 86 mL/min (>60); Estimated Creatinine Clearance 52.05 ml/min; Glucose 241 mg/dL (74-106); Potassium 4.4 mmol/L (3.5-5.1); Sodium Level 137 mmol/L (136-145)
[2022-09-28] MEDS: 0.9% Normal Saline 1,000 ML 150 ML IV (15:36)
[2022-09-28 15:38] VITALS: BP 200/98; PULSE 86; RESP 16; O2SAT 96
[2022-09-28 16:57] VITALS: BP 187/93; PULSE 94; RESP 18; O2SAT 96
== END 2022-09-28 17:13 | disposition home or self-care (01) ==
PROVIDERS: Emergency Provider Emergency Medicine; PCP Family Medicine; Visit Provider Emergency Medicine
DX: R10.9 Unspecified abdominal pain (principal); G20 Parkinson's disease; F02.80 Dementia in other diseases classified elsewhere, unspecified severity, without behavioral disturbance, psychotic disturbance, mood disturbance, and anxiety; E11.9 Type 2 diabetes mellitus without complications; I10 Essential (primary) hypertension; Z79.84 Long term (current) use of oral hypoglycemic drugs; Z79.899 Other long term (current) drug therapy; Z87.891 Personal history of nicotine dependence
CPT/HCPCS: 74176; 80048; 81001; 85025; 99283; J7030; A4216

== ENCOUNTER 2022-10-20 09:45 | Outpatient (RCR) | payer MEDICARE, OTHER, MEDICAID, SELFPAY ==
[2022-09-28 00:25] VITALS: BP 130/71; PULSE 70; RESP 16; TEMP 36.2; BMI 21.2
[2022-10-06 10:28] VITALS: TEMP 36.2; BMI 21.2
--- NOTE | 2022-10-06 10:32 | PCM.WC.PN ---
History of Present Illness Date of Service: 10/06/22 Chief Complaint: Foot wound History of Wound: 75-year-old male who was referred for evaluation relative to wounds on his feet. He has apparently been under the care of Dr. Cheung, podiatric specialist, recently, though no such medical records are available. According to the patient, and his , the patient was evaluated in Dr. Cheung's office, and the calluses on the plantar aspect of both feet were scraped. Bleeding was encountered. The patient indicates that he was then referred for further evaluation and management at the [facility]. The patient's pre-existing medical problems include diabetes mellitus, hyperlipidemia, Parkinson's disease, hypertension, debility, and generalized weakness. Subjective Subjective This 76-year-old male presents for follow-up to the wound care center with a right foot subfirst metatarsal ulceration. ?He is accompanied by his today who assists him in dressing changes daily. Visiting nursing checks on him twice a week.?He has remained in his surgical shoe with plantar offloading padding. He is trying to offload to the right foot as best he can. He denies any constitutional symptoms today.? He has no other complaints today. Objective Data Objective Data Vital Signs: Vital Signs Temp Pulse Resp BP 97.2 F L 70 16 130/71 H 10/06/22 10:28 09/28/22 00:25 09/28/22 00:25 09/28/22 00:25 Weight: 67.132 kg Body Mass Index (BMI) 21.2 Physical Exam Const alert, oriented x3 and no apparent distress General Appearance: cooperative HEENT normocephalic Eyes General Eye: normal appearance of both eyes Neck General: normal visual inspection Lymph Lymphatic: no lymphadenopathy noted and no lymphedema noted Resp normal respiratory effort Cardio regular rate and regular rhythm Extremity normal capillary refill, no joint enlargement, no calf tenderness and no pedal edema Skin no rashes or lesions noted, skin turgor normal and no jaundice Skin Narrative: Skin is thin/atrophic bilaterally Fat pad atrophy bilaterally to the forefoot with prominent metatarsal heads Wound Narrative: Right foot: Sub first metatarsal ulceration measures 0.1 cm x 0.1 cm x 0.1 cm.? Ulcerative base demonstrates healthy granular tissue with surrounding hyperkeratotic tissue.? No signs of infection. Left foot: Hyperkeratotic tissue distal tuft of 3rd digit secondary to hammertoe deformity. Site is healed and offloaded with padding. Neuro moves all extremities Debridement Note Debridement Note Wound debrided: Sub first metatarsal head Laterality: Right Wound Grade/Stage: [place] stage I Type of Debridement: Excisional debridement Anesthesia Used: 5% Lidocaine Gel Depth: Down to and including healthy tissue and in the subcutaneous layer Percentage of wound debrided: 100 Instrument Used: - (313 blade) Tissue Removed: Fibrous, devitalized subcutaneous, biofilm, slough Severity: Fat Layer Exposed Amount of bleeding with debridement: Mild Bleeding Controlled with: Compression and gauze Patient tolerated procedure: Patient tolerated procedure well Post-Debridement Measurements and Additional Note: Post-Debridement Measurements/Treatment - Nurse 1 - General Ulcer Assessment Start: 10/06/22 10:27 Freq: Status: Active Protocol: TAMIR Activity Type Activity Date Activity User E-sign Co-sign Detail Recorded Client Recorded Date Recorded By Document 10/06/22 10:28 MARÍA [id number] 10/06/22 10:29 MARÍA 10/06/22 10:28 REECE - Today's Visit Information Type of service Follow-up Visit (Physician/[employer]AGE TUTOR ) Arrival Mode Ambulatory Patient Identification Verified (Name & Yes ) Patient Requires Transmission-Based No Precautions Safety Precautions NA Height and Weight Body Mass Index (BMI) 21.2 BMI Classification Normal Vital Signs Temperature (97.8 F-99.1 F) 97.2 F L Temperature Source Temporal History Since Last Visit- (Skip if this is Patient's initial visit) Have you changed medications since your No last visit? Any new allergies or adverse reactions No Had a fall/change in ADL's that may No increase risk of falls Signs or symptoms of abuse and/or No neglect since last visit Have you been in the hospital since your No last visit? Has dressing in place as prescribed No Has compression in place as prescribed N/A Has offloadiing in place as prescribed Yes Experienced any changes in pain level or No management Left Footwear Regular Shoe Right Footwear Regular Shoe Pain Scale: 0-10 Numeric Is Patient Pain Free? Yes REECE - Nurse 1 - General Ulcer Measurement Start: 10/06/22 10:27 Freq: Status: Active Protocol: Activity Type Activity Date Activity User E-sign Co-sign Detail Recorded Client Recorded Date Recorded By Document 10/06/22 10:28 DE [id number] 10/06/22 10:29 DE 10/06/22 10:28 Wound Center Nurse 1 #2- R 1ST MET HEAD -Combined with other wound No -Current Size (cm) - Length 0.1 -Current Size (cm) - Width 0.1 -Current Size (cm) - Depth 0.1 -Total Square Cm 0.01 -Photo Taken Yes -Tunneling No -Undermining/Tunneling No -Circular Undermining No -Change in Wound Grade/Stage No -Exudate Amt None Present -Wound Margin Distinct, Outline Attached -Granulation Amt None Present (0 %) -Granulation Quality N/A -Slough/Fibrin No -Necrosis Amt None Present (0 %) -Structure Exposed N/A -Texture (Kathya-wound Skin Appearance) Assessed,Callus -Moisture (Kathya-wound Skin Appearance) No Abnormality, Assessed -Color (Kathya-wound Skin Appearance) No Abnormality, Assessed -Temperature (Kathya-wound Skin No Abnormality Appearance) (Pt Warm) -Tenderness on Palpation (Kathya-wound No Skin Appearance) -Ulcer Cleansing Rinsed/ Irrigated with Saline -Foul Odor after Cleansing No -Anesthetic Used 5% Lidocaine Gel Assessment/Plan Assessment/Plan (1) Callus of foot: CODE(S): L84 - Corns and callosities (2) Parkinson's disease dementia: CODE(S): G20 - Parkinson's disease; F02.80 - Dementia in other diseases classified elsewhere, unspecified severity, without behavioral disturbance, psychotic disturbance, mood disturbance, and anxiety QUALIFIERS: Qualified Code(s): F02.80 - Dementia in other diseases classified elsewhere without behavioral disturbance (3) Parkinsons disease: CODE(S): G20 - Parkinson's disease (4) Diabetes mellitus, type II: CODE(S): E11.9 - Type 2 diabetes mellitus without complications (5) Debility: CODE(S): R53.81 - Other malaise (6) Non-pressure chronic ulcer of other part of right foot with fat layer exposed: CODE(S): L97.512 - Non-pressure chronic ulcer of other part of right foot with fat layer exposed PLAN: Plan Patient seen and evaluated. Ulceration distal tuft third digit remains healed with some hyperkeratotic tissue.? No signs of infection.? Ulceration caused secondary to pressure via hammertoe deformity.?Continued offloading of the digit with a crest pad. Sub- fourth metatarsal head right demonstrates callus tissue buildup with some subdermal hemorrhage this was sharply debrided with a 313 blade. Debridement of subfirst metatarsal head ulcer of the right foot performed as noted in the clinical panel above.? Ulceration measures 0.1 cm x 0.1 cm x 0.1 cm. No signs of infection. Offloading pad remains in place to bottom of his surgical shoe of the right foot.?I advised the patient to continue to stay off of his feet as much as possible to aid in pressure reduction for healing of this ulcerative site, however I do not believe he is doing this consistently due to ulceration failing to progress.? Collagen powder and PHMB dressing applied to the subfirst metatarsal wound and dressed with dry sterile dressing.? This ulcer continues near closure. Offloading: He did tolerate total contact cast well.? However we will continue to refrain from reapplication.? We will continue offloading with diabetic shoe inserts/surgical shoe and plantar offloading padding due to 's concerns of walking.? Due to difficult ambulation he has not performed well with CAM boot in the past. I discussed with the patient to continue to check his feet daily for any signs of wounds or pressure sites which may contribute to wound formation.?He is to remain in the diabetic shoes with inserts for proper offloading of the pressure sites and to not wear house sandals or house slippers or go barefoot.?I reminded them that his wounds are caused secondarily from pressure due to his atrophic fat pad at the forefoot and plantigrade metatarsals creating direct pressure at the forefoot and pressure reduction is the fields to continued healing and prevention or recurrence of wounds.?I again stressed the importance of staying off of his feet as much as possible to allow the wounds to reducing pressure and allow for healing.?However due to the increased callus tissue buildup and failure to progress, I feel compliance with proper offloading remains an issue. I discussed the localized signs of infection with the patient's and his today and instructed them if they notice any increased redness around the wound, purulent drainage, malodor, red streaking going up the leg, or if he experiences any nausea, vomiting, fever, chills to go to the emergency department for treatment as these are signs of a progressing infection.? and patient voiced understanding of this. The following work up and care recommendations were made: Dressing: Collagen Powder and PHMB with dry sterile dressing. Wash: Soap and water Tissue growth optimization: Collagen powder with PHMB Offload: Diabetic shoe with inserts and plantar offloading padding left and right. 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 Atrophic fat pad at the forefoot.? Parkinson's disease. ? I answered all the patient's questions.? To return to the wound healing center in 2 weeks or call sooner if the patient has any questions or concerns. Note: [employer] speech recognition plug making operator software was used to create portions of this document. Sound-alike and misspelled words, as well as other plug making operator errors may be contained in the documentation.
[2022-10-20 10:05] VITALS: BP 94/59; PULSE 79; TEMP 36.2; BMI 21.2
--- NOTE | 2022-10-20 10:20 | PN.PCM_ITS ---
History of Present Illness Date of Service: 10/20/22 Chief Complaint: Foot wound History of Wound: 75-year-old male who was referred for evaluation relative to wounds on his feet. He has apparently been under the care of Dr. Cheung, podiatric specialist, recently, though no such medical records are available. According to the patient, and his , the patient was evaluated in Dr. Cheung's office, and the calluses on the plantar aspect of both feet were scraped. Bleeding was encountered. The patient indicates that he was then referred for further evaluation and management at the [facility]. The patient's pre-existing medical problems include diabetes mellitus, hyperlipidemia, Parkinson's disease, hypertension, debility, and generalized weakness. Subjective Subjective This 77-year-old male presents for follow-up to the wound care center with a right foot subfirst metatarsal ulceration. ?He is accompanied by his today who assists him in dressing changes daily. Visiting nursing checks on him twice a week.?He has remained in his surgical shoe with plantar offloading padding. He is trying to offload to the right foot as best he can. He denies any constitutional symptoms today.? He has no other complaints today. Objective Data Objective Data Vital Signs: Vital Signs Temp Pulse Resp BP 97.2 F L 79 16 94/59 L 10/20/22 10:05 10/20/22 10:05 09/28/22 00:25 10/20/22 10:05 Weight: 67.132 kg Body Mass Index (BMI) 21.2 Physical Exam Const alert, oriented x3 and no apparent distress General Appearance: cooperative HEENT normocephalic Eyes General Eye: normal appearance of both eyes Neck General: normal visual inspection Lymph Lymphatic: no lymphadenopathy noted and no lymphedema noted Resp normal respiratory effort Cardio regular rate and regular rhythm Extremity normal capillary refill, no joint enlargement, no calf tenderness and no pedal edema Skin no rashes or lesions noted, skin turgor normal and no jaundice Skin Narrative: Skin is thin/atrophic bilaterally Fat pad atrophy bilaterally to the forefoot with prominent metatarsal heads Wound Narrative: Right foot: Sub first metatarsal ulceration healed with surrounding hyperkeratotic tissue. No signs of infection. Left foot: Hyperkeratotic tissue distal tuft of 3rd digit secondary to hammertoe deformity. Site is healed and offloaded with padding. Neuro moves all extremities Debridement Note Debridement Note No debridement was completed: No debridement was completed today Post-Debridement Measurements and Additional Note: Post-Debridement Measurements/Treatment REECE - Nurse 1 - General Ulcer Assessment Start: 10/06/22 10:27 Freq: Status: Active Protocol: TAMIR Activity Type Activity Date Activity User E-sign Co-sign Detail Recorded Client Recorded Date Recorded By Document 10/06/22 10:28 MARÍA [id number] 10/06/22 10:29 MARÍA Document 10/20/22 10:05 SIMRAN [id number] 10/20/22 10:09 SIMRAN 10/06/22 10/20/22 10:28 10:05 - Today's Visit Information Type of service Follow-up Visit Follow-up Visit (Physician/INVESTIGATIONS CONSULTANT (Physician/INVESTIGATIONS CONSULTANT ) ) Arrival Mode Ambulatory Ambulatory Patient Identification Verified (Name & Yes Yes ) Patient Requires Transmission-Based No No Precautions Safety Precautions NA NA Height and Weight Body Mass Index (BMI) 21.2 21.2 BMI Classification Normal Normal Vital Signs Temperature (97.8 F-99.1 F) 97.2 F L 97.2 F L Temperature Source Temporal Temporal Pulse Rate (60-100) 79 Pulse Location Monitor Blood Pressure (90/60-120/80) 94/59 L Blood Pressure Mean (mm Hg) 70 Source Monitor History Since Last Visit- (Skip if this is Patient's initial visit) Have you changed medications since your No No last visit? Any new allergies or adverse reactions No No Had a fall/change in ADL's that may No No increase risk of falls Signs or symptoms of abuse and/or No No neglect since last visit Have you been in the hospital since your No last visit? Has dressing in place as prescribed No Yes Has compression in place as prescribed N/A No Has offloadiing in place as prescribed Yes N/A Experienced any changes in pain level or No No management Left Footwear Regular Shoe Regular Shoe Right Footwear Regular Shoe Regular Shoe Pain Scale: 0-10 Numeric Is Patient Pain Free? Yes Yes REECE Day Nurse 1 - General Ulcer Measurement Start: 10/06/22 10:27 Freq: Status: Active Protocol: Activity Type Activity Date Activity User E-sign Co-sign Detail Recorded Client Recorded Date Recorded By Document 10/06/22 10:28 MARÍA [id number] 10/06/22 10:29 AK Document 10/20/22 10:05 [id number] 10/20/22 10:09 JF 10/06/22 10/20/22 10:28 10:05 Wound Center Nurse 1 #2- R 1ST MET HEAD -Combined with other wound No No -Current Size (cm) - Length 0.1 0.1 -Current Size (cm) - Width 0.1 0.1 -Current Size (cm) - Depth 0.1 0.1 -Total Square Cm 0.01 0.01 -Date of Last Picture (Recall this 10/20/22 field) -Photo Taken Yes Yes -Tunneling No No -Undermining/Tunneling No No -Circular Undermining No No -Change in Wound Grade/Stage No No -Exudate Amt None Present None Present -Wound Margin Distinct, Outline Attached -Granulation Amt None Present (0 None Present (0 %) %) -Granulation Quality N/A N/A -Slough/Fibrin No No -Necrosis Amt None Present (0 None Present (0 %) %) -Structure Exposed N/A N/A -Texture (Kathya-wound Skin Appearance) Assessed,Callus Assessed,Callus -Moisture (Kathya-wound Skin Appearance) No Abnormality, No Abnormality, Assessed Assessed -Color (Kathya-wound Skin Appearance) No Abnormality, No Abnormality, Assessed Assessed -Temperature (Kathya-wound Skin No Abnormality No Abnormality Appearance) (Pt Warm) (Pt Warm) -Tenderness on Palpation (Kathya-wound No No Skin Appearance) -Ulcer Cleansing Rinsed/ Rinsed/ Irrigated with Irrigated with Saline Saline -Foul Odor after Cleansing No No -Anesthetic Used 5% Lidocaine 5% Lidocaine Gel Gel WC - Nurse 2 - General Ulcer CM Notes Start: 10/06/22 10:27 Freq: Status: Active Protocol: Activity Type Activity Date Activity User E-sign Co-sign Detail Recorded Client Recorded Date Recorded By Document 10/06/22 12:05 JODY [id number] 10/06/22 12:06 PL 10/06/22 12:05 Wound Center Nurse 2 -Time 11:03 -Correct Patient Yes -Correct Side, Site, Position Yes -Correct Procedure Yes -Procedure Performed Yes -Type of Procedure Debridement -Clinical Debridement Subcutaneous -Tissue Removed Subcutaneous -Post Debridement (cm) - Length 0.1 -Post Debridement (cm) - Width 0.1 -Post Debridement (cm) - Depth 0.1 -Total Square (Post) (cm) 0.01 -Area of Debridement (cm) - Length 0.1 -Area of Debridement (cm) - Width 0.1 -Total Square (Area) (cm) 0.01 -Tunneling No -Undermining/Tunneling No -Circular Undermining No -Wound/Ulcer Outcome Not Healed -Ulcer Cleansing Rinsed/ Irrigated with Saline -Foul Odor after Cleansing No -Bioengineered Tissue No -Bleeding Controlled with Pressure -Treatment Response Procedure Tolerated Well -Debridement - Subq, 1st 20sq cm Yes Pain Scale: 0-10 Numeric Is Patient Pain Free? Yes - Nurse 3 - General Ulcer D/C NN Start: 10/06/22 10:27 Freq: Status: Active Protocol: Activity Type Activity Date Activity User E-sign Co-sign Detail Recorded Client Recorded Date Recorded By Document 10/06/22 11:36 [id number] 10/06/22 11:37 10/06/22 11:36 Wound Care Center Nurse 3 #2- R 1ST MET HEAD -Ulcer Cleansing Rinsed/ Irrigated with Saline -Foul Odor after Cleansing No -Primary Dressing Applied C Hydrogel ($), Collagen Powder ($) -Other Dressing corn pad applied to both ulcers -Primary Dressing Covered/Secured with Dry Gauze, Secured with Tape Pain Scale: 0-10 Numeric Is Patient Pain Free? Yes - Visit Discharge Discharge Condition Stable Ambulatory Status Ambulatory,Cane Transportation Private Auto Accompanied by Medication Reconcilliation completed & Yes provided to patient/care provider Clinical Summary of Care Provided Yes Assessment/Plan Assessment/Plan (1) Callus of foot: CODE(S): L84 - Corns and callosities (2) Parkinson's disease dementia: CODE(S): G20 - Parkinson's disease; F02.80 - Dementia in other diseases classified elsewhere, unspecified severity, without behavioral disturbance, psychotic disturbance, mood disturbance, and anxiety QUALIFIERS: Qualified Code(s): F02.80 - Dementia in other diseases classified elsewhere without behavioral disturbance (3) Parkinsons disease: CODE(S): G20 - Parkinson's disease (4) Diabetes mellitus, type II: CODE(S): E11.9 - Type 2 diabetes mellitus without complications (5) Debility: CODE(S): R53.81 - Other malaise (6) Non-pressure chronic ulcer of other part of right foot with fat layer exposed: CODE(S): L97.512 - Non-pressure chronic ulcer of other part of right foot with fat layer exposed PLAN: Plan Patient seen and evaluated. Ulceration distal tuft third digit remains healed with some hyperkeratotic tissue.? No signs of infection.? Ulceration caused secondary to pressure via hammertoe deformity.?Continued offloading of the digit with a crest pad. Sub- fourth metatarsal head right demonstrates callus tissue buildup Sub first metatarsal head ulcer of the right foot is healed today with some hy perkeratotic tissue surrounding the ulcerative site. Discussed continued offloading and surgical shoe for the next few days and transitioning back to diabetic shoes with plantar offloading padding. Offloading: He did tolerate total contact cast well.? However we will continue to refrain from reapplication.? We will continue offloading with diabetic shoe inserts/surgical shoe and plantar offloading padding due to 's concerns of walking.? Due to difficult ambulation he has not performed well with CAM boot in the past. I discussed with the patient to continue to check his feet daily for any signs of wounds or pressure sites which may contribute to wound formation.?He is to remain in the diabetic shoes with inserts for proper offloading of the pressure sites and to not wear house sandals or house slippers or go barefoot.?I reminded them that his wounds/pre-ulcerative calluses are caused secondarily from pressure due to his atrophic fat pad at the forefoot and plantigrade metatarsals creating direct pressure at the forefoot and pressure reduction is the fields to continued healing and prevention or recurrence of wounds.?I again stressed the importance of staying off of his feet as much as possible to allow the wounds to reducing pressure and allow for healing.?However due to the increased callus tissue buildup and failure to progress, I feel compliance with proper offloading remains an issue. I discussed the localized signs of infection with the patient's and his today and instructed them if they notice any increased redness around the wound, purulent drainage, malodor, red streaking going up the leg, or if he experiences any nausea, vomiting, fever, chills to go to the emergency department for treatment as these are signs of a progressing infection.? and patient voiced understanding of this. The following work up and care recommendations were made: Dressing: None Wash: Soap and water Tissue growth optimization: None Offload: Diabetic shoe with inserts and plantar offloading padding left and right. 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 Atrophic fat pad at the forefoot.? Parkinson's disease. ? I answered all the patient's questions.? To return to the wound healing center as needed or call sooner if the patient has any questions or concerns. Due to patient's ulceration being healed he is being discharged from the wound care center today. He will follow-up in office next week for his routine nail debridement and debridement of calluses. Note: [employer] speech recognition commercial escrow assistant software was used to create portions of this document. Sound-alike and misspelled words, as well as other commercial escrow assistant errors may be contained in the documentation.
== END 2022-10-25 23:59 | disposition home or self-care (01) ==
LOC: WC 09:45
PROVIDERS: PCP Family Medicine; Visit Provider Student in an Organized Health Care Education/Training Program
DX: E11.621 Type 2 diabetes mellitus with foot ulcer (principal); G20 Parkinson's disease; L97.512 Non-pressure chronic ulcer of other part of right foot with fat layer exposed; F02.80 Dementia in other diseases classified elsewhere, unspecified severity, without behavioral disturbance, psychotic disturbance, mood disturbance, and anxiety; E78.5 Hyperlipidemia, unspecified; R53.1 Weakness; I10 Essential (primary) hypertension; R53.81 Other malaise
CPT/HCPCS: 11042; 99213; G0463

== ENCOUNTER → 2022-11-08 | Outpatient (CLI) | payer MEDICARE, OTHER, MEDICAID, SELFPAY ==
--- NOTE | 2022-11-08 13:02 | ART_ITS ---
Reason For Study: PVD Procedure A bilateral lower extremity continuous wave Doppler with analog waveform analysis,segmental pressures,and ankle brachial indexes without exercise. Left Segmental Pressures Left brachial= 116mmHg. Left posterior tibial artery = 146mmHg. Left dorsalis pedis artery = 136mmHg. Left digit = 96 mmHg. The left posterior tibial artery waveforms are triphasic. The left dorsalis pedis waveforms are triphasic. Right Segmental Pressures Right brachial= 116mmHg. Right posterior tibial artery = 145mmHg. Right dorsalis pedis artery = 137mmHg. Right digit = 103 mmHg. The right posterior tibial artery waveforms are triphasic. The right dorsalis pedis waveforms are triphasic. Indices The right ankle brachial index by the posterior tibial artery is 1.25. The right ankle brachial index by the dorsalis pedis is 1.18. The right digital-brachial index is 0.89. The left ankle brachial index by the posterior tibial artery is 1.26. The left ankle brachial index by the dorsalis pedis is 1.17. The left digital-brachial index is 0.83. VL/Lower Ext Art Exam w/ Exercise Interpretation Summary Triphasic Doppler waveforms are noted at ankle level bilaterally. Pulse-volume recordings appear satisfactory at all levels bilaterally. Resting ankle-brachial indices are norm al bilaterally. Digital-brachial indices are normal bilaterally. There is no evidence of significant arterial occlusive disease in the lower ext remities bilaterally. Ordering Physician: Moustapha Lema Referring Physician: MD Lucia Pawel Performed By: Vicente Cortez, RVT
== END | disposition home or self-care (01) ==
LOC: CVS 13:00
PROVIDERS: PCP Family Medicine; Referring Provider Podiatrist; Visit Provider Podiatrist
DX: I73.9 Peripheral vascular disease, unspecified (principal)
CPT/HCPCS: 93924

== ENCOUNTER 2023-06-23 08:54 | Inpatient (IN) | payer MEDICARE, OTHER, MEDICAID, SELFPAY ==
[2023-06-23] VITALS (9 sets, daily range): BP systolic 136–166; BP diastolic 66–84; PULSE 66–92; RESP 16–18; TEMP 36.1–36.8; O2SAT 98–100; BMI 20.6
[2023-06-23] MEDS: Lactated Ringers 1,000 ML 15 ML IV (06:31)
[2023-06-23 06:56] LABS: Bedside Glucose 208 mg/dL (74-106)
--- NOTE | 2023-06-23 07:30 | RAD_ITS ---
STUDY: X-RAY - RIGHT FOOT CLINICAL: Male, 77 years old. TENDO-ACHILLES LENGTHENING, METATARSAL OSTEOTOMY, SESAMOIDECTOMY TECHNIQUE: 2 view(s) of the foot. COMPARISON: None. FINDINGS: 12 seconds of fluoroscopy of the right foot was utilized the operating room and 6 images are cemented for interpretation. . RAD/Foot 2 Views IMPRESSION: Fluoroscopy during surgery. Electronically Signed: Param Ziegler MD at 17:05 EDT ,
--- NOTE | 2023-06-23 07:30 | BON_PTH ---
PATIENT: JODIE AMAYA LOC: MS3 U#:[id number] AGE/SX: 77/M ROOM: [facility] [place] RE06/23/[address]: ROMARIO SingerM : 1945 BED: 1 DIS: 06/28/2023 SPEC #: [id number] RECD: 06/23/23 09:54 STATUS: RICHARD KATRIN #: [id number] YVETTE: 06/23/23 07:[address]: Moustapha Lema DEPT: SURGICAL PATHOLOGY RECD BY: Yolande Claudio ENTERED: 06/23/23 10:32 SP TYPE: Bone OTHR DR: DO Dr. Pawel De Jesus MD Tissues: Digit, NOS Procedures: Decalcification bone/plaque Surgery Specimen Level IV HEADER OPERATION: Right foot tendo-Achilles lengthening PRE-OP DIAGNOSIS: Right foot tendo-Achilles lengthening TISSUE SUBMITTED: First metatarsal sesamoid right foot MICROSCOPIC DIAGNOSIS First metatarsal, sesamoid, right foot, excision: Osseocartilaginous tissue with focal reactive and reparative change consistent with sesamoid. MATT:mario 06/28/2023 MICROSCOPIC DESCRIPTION Slides are reviewed. GROSS DESCRIPTION Received in fixative is one container labeled with the patient's name and designated first metatarsal sesamoid right foot. The specimen consists of two pieces of bone measuring 1.8 x 1.5 x 1.0 cm and 1.5 x 1.2 x 0.5 cm. The entire specimen is submitted in two cassettes after decalcification. / KINGSLEY:mario 06/23/2023 TC:5 CPT: 18343, 76882
[2023-06-23] MEDS: Cefazolin 2 GM in 0.9% Normal Saline (100mL Bag) 100 ML IV (07:32)
[2023-06-23] MEDS: Bupivacaine Mpf 0.5% 30 ML VIAL (08:01)
[2023-06-23] MEDS: Bacitracin 500 UNITS/GM PACKET (08:37)
--- NOTE | 2023-06-23 08:58 | OP.PCM_ITS ---
Problems Associated Problem List Diagnoses (1) Short Achilles tendon (acquired), right ankle: (2) Type 2 diabetes mellitus with diabetic polyneuropathy: (3) Flexion deformity, right ankle and toes: Report of Operation Date of Procedure: 06/23/23 Pre-Operative Diagnosis: 1) diabetic neuropathy 2) chronic foot wound right foot x2 3) gastrosoleus equinus right lower extremity 4) plantarflexed fourth ray prominent fourth metatarsal head creating ulceration to plantar fourth met head 5) hallux malleus with prominent plantar sesamoids creating ulceration to plantar first met head Post-Operative Diagnosis: Same Surgery/Procedure Performed:: 1) tendo Achilles lengthening right lower extremity 2) floating metatarsal osteotomy right fourth metatarsal 3) sesamoidectomy right plantar first metatarsal head Description of Surgical Findings:: Patient has had chronic foot wounds for greater than 1 year is failed offloading and diabetic shoes. Patient was able to heal his wounds with local wound care but they do recur when he returns ambulation and normal diabetic shoes. Decision was made to lengthen posterior musculature to offload the forefoot wound areas as well as removed plantar sesamoids to the first metatarsal head to offload the first metatarsal head wound as well as a floating metatarsal osteotomy to the fourth metatarsal to allow for healing of the fourth metatarsal wound plantarly. Surgeon: Moustapha Lema bow repairer custom: None (usman mckinnon) Type of Anesthesia: General Special Medications: 10 cc half percent Marcaine plain Specimen's removed: Tibial and fibular sesamoid right plantar first met head Drains: None Estimated Blood Loss (mL): Minimal Description of Procedure: Patient brought back the operating placed comfortably in supine position on the operating room table. Patient induced under general anesthesia. Well-padded right thigh tourniquet applied. Right lower extremity position with a hip bump knock on external rotation. Right lower extremity scrubbed prepped and draped using typical aseptic fashion. Right lower extremity elevated exsanguinated tourniquet inflated to 300 mmHg. Procedure 1: Tendo Achilles lengthening right lower extremity: Marcaine from the base of the heel at the insertion of the Achilles to the proximal the Achilles tendon was mapped out with medially and laterally and was hemisected at 5 8 and 11 cm respectively from the inferior surface of the heel to these hemisections performed with a #11 blade the most distal and proximal aspects and the central 1 was a lateral hemisection for a chordee and le ngthening of the tendo Achilles approximately 5 degrees of increased dorsiflexion was noted upon completion of the procedure the stab hole incisions were flushed with saline and closed with 3-0 nylon. Procedure 2: Floating metatarsal objects the immediate right foot fourth metatarsal head. The fourth metatarsal head was palpated a small 2 cm incision was made dorsal to the fourth metatarsal head with a 15 blade through epidermis dermis into subcutaneous tissue blunt dissection was taken down to level the fourth metatarsal head and neck area was exposed and any bleeders identified cauterized neurovascular structures were protected with blunt retraction. A sagittal saw was used to make a transverse loop cut in the fourth metatarsal neck. The fourth metatarsal head was then mobile within the sagittal plane offloading the plantar fourth metatarsal head wound incision was flushed with copious amounts normal sterile saline and closed with 3-0 Vicryl subcutaneous layer and horizontal mattress using 3-0 nylon. Procedure 3: Sesamoidectomy plantar right first metatarsal head tibial and fibular sesamoid A medial incision was drawn along the plantar medial aspect of the first metatarsal phalangeal joint for approximately 3 cm this was made with a 15 blade through epidermis dermis into subcutaneous tissue. Any bleeders identified cauterized at this time neurovascular structures in the area were protected with atraumatic blunt retraction. The the tibial and fibular sesamoids were removed from their medial lateral distal and proximal attachments and excised from the incisional site and passed the back table to be sent to pathology for further examination. There is no to be adequate offloading of the forefoot wound upon removal of the tibial and fibular sesamoids. Site was flushed with copious amounts normal sterile saline and closed with 3-0 Vicryl to subcutaneous. Interrupted. Skin closure performed with horizontal mattress using 3-0 nylon. Fluoroscopic imaging was then used to confirm complete transverse osteotomy of the fourth metatarsal head with mobility of the fourth metatarsal head in the sagittal plane. This was confirmed as well as adequate resection of the sesamoids which was confirmed using fluoroscopic imaging. Tourniquet was let down total tourniquet time was noted to be 19 minutes. Just the incisions were dressed with bacitracin Adaptic 4 x 4's Kerlix and a well- padded Avliente AO splint. Patient was transferred to PACU vital signs stable and vascular status intact all digits for further monitoring prior to transfer to the floor. Patient darin erated procedure well. Patient will be admitted for possible SNF placement as the patient has significant cognitive defects and will require more advanced care due to weightbearing restrictions and wound care. No complications
--- NOTE | 2023-06-23 09:08 | PCM.HP.STD ---
HPI - General General Date of Admission: 06/23/23 Date of Service: 06/23/23 HPI Narrative JODIE AMAYA, is a 77 M who presents admitted postoperatively for pain management as well as gait instability due to nonweightbearing restrictions. Patient will require SNF placement. Patient has no other complaints at current. Patient's been dealing with chronic right lower extremity ulcerations. Multiple foot procedures performed to offload right foot wound sites requiring significant weightbearing restrictions to put the patient at risk for fall during the postoperative period. [facility] Medical History Anxiety Callus of foot Depression Diabetes Diabetes mellitus type 2 in nonobese Diarrhea Former smoker High cholesterol History of dementia History of diverticulitis History of echocardiogram Hypertension Parkinsons disease Wears dentures Wears glasses Home Medications donepezil 10 mg tablet (Aricept) 10 mg PO QHS memory 06/26/18 [History Last Taken 06/22/23] escitalopram oxalate 20 mg tablet (Lexapro) 20 mg PO DAILY anxiety 06/26/18 [History Last Taken 06/22/23] atorvastatin 10 mg tablet 10 mg PO QHS cholesterol 08/26/19 [History Last Taken 06/22/23] carbidopa ER 25 mg-levodopa 100 mg tablet,extended release 1 tab PO TID parkinsons 08/26/19 [History Last Taken 06/23/23] cholecalciferol (vitamin D3) 25 mcg (1,000 unit) tablet 5,000 unit PO DAILY supplement 08/26/19 [History Last Taken 06/22/23] acidophilus 25 million cell-pectin, citrus 100 mg tablet 1 tab PO DAILY 09/11/19 [Rx Last Taken 06/22/23] metformin 1,000 mg tablet 500 mg PO BIDCM 06/16/23 [History Last Taken 06/22/23] multivitamin 1 tab PO DAILY 06/16/23 [History Last Taken 06/22/23] Allergy/AdvReac Type Severity Reaction Status Date / Time codeine AdvReac Nausea/Vom/ Verified 06/16/23 15:11 Diarrhea Family History Father Hypertension Heart disease Surgical History Hx of colonoscopy s/p stomach surgery Social History Smoking Status: Former smoker alcohol intake: never ROS Constitutional Constitutional: Denies change in weight, chills or headache(s) Eyes Eyes: Denies acute decrease in peripheral vision, change in eye color or discongugate gaze ENT HEENT: Denies bleeding gums, change in voice or epistaxis Cardiovascular Cardiovascular: Reports leg ulcers; Denies chest pain at rest, dyspnea or erythema on extremities Respiratory/Chest Respiratory/Chest: Denies change in phlegm color, chest congestion or dyspnea Gastrointestinal Gastrointestinal: Denies belching, bloating or constipation Vital Signs Vital Signs Vital Signs: 06/23/23 06:32 06/23/23 06:32 06/23/23 08:56 Temperature 97.3 F L 97 F L Temperature Source Temporal Temporal Pulse Rate 66 72 Respiratory Rate 18 18 Respiratory Pattern Normal Normal Blood Pressure 140/66 H 161/83 H Blood Pressure Mean 90 109 Blood Pressure Source Monitor Monitor Blood Pressure Position Semi-Fowlers Semi-Fowlers Blood Pressure Location Right Arm Baseline BP 144/66 Pulse Ox 99 99 Oxygen Delivery Method Room Air Room Air Weight Weight: 63.412 kg Body Mass Index (BMI) 20.6 Physical Exam Narrative Vascular: Dorsalis pedis posterior tibial pulses palpable 2 out of 4 to bilateral lower extremity. Present digital hair growth noted. No atrophic skin changes noted. Neurologic light touch protective sensation absent to bilateral feet Full-thickness wound noted to plantar fourth metatarsal head and plantar first metatarsal head. These are better offloaded after fourth metatarsal osteotomy and sesamoidectomy of plantar first metatarsal head with tendo Achilles lengthening on the right side. No sign DVT. 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 Patient admitted during postoperative period for SNF placement Patient nonweightbearing to right lower extremity Keep dressing clean dry and intact right lower extremity We will follow closely Medicine consulted for medical management and med rec Physical therapy consulted for postop evaluation Case management on board We will await SNF placement Due to weightbearing restrictions patient is high risk for fall and patient has significant cognitive declines and typically goes to an adult daycare for management but due to increased attention during the postoperative period plan will be for discharge to SNF for higher level of care. (3) Short Achilles tendon (acquired), right ankle: (4) Non-pressure chronic ulcer of other part of right foot with fat layer exposed:
[2023-06-23] MEDS: Heparin Injection (Vial) 5,000 UNIT/ML VIAL 5000 UNIT SC ×2 (11:09→20:47)
--- NOTE | 2023-06-23 15:30 | PCM.HOSP.N ---
Hospitalist Note Went to go see the patient. Introduced myself and the was very focused on patient being able to urinate and would not talk further. Notified staff for the patient was having concerns for urination. We will follow-up on the . If acute issues arise do call.
[2023-06-23] MEDS: Menthol/Lanolin/Calamine/Znox 113 GM Tube 1 APPLIC TOPICAL (20:47)
[2023-06-24 01:51] VITALS: BP 148/77; PULSE 73; RESP 16; TEMP 36.8; O2SAT 99
[2023-06-24 08:41] LABS: Absolute Lymphocyte Count 1.72 X10^3/uL (0.83-4.51); Absolute Neutrophil Count 6.4 X10^3/uL (2.0-7.7); Basophil# 0.04 X10^3/uL; Basophil% 0.4 % (0-1); Eosinophil# 0.04 X10^3/uL; Eosinophils% 0.4 % (0-5); Hemoglobin 12.4 g/dL (13.0-16.5); Lymphocyte # 1.72 X10^3/ul (0.83-4.51); Lymphocyte % 18.2 % (19-41); Mean Corp Hgb Conc 32.6 g/dL (32-36); Mean Corpuscular Hgb 31.4 pg (27.0-32.0); Mean Corpuscular Volume 96.2 fL (80-94); Mean Platelet Vol. 10.4 fl (6.2-12.0); Monocyte# 1.29 X10^3/uL; Monocyte% 13.6 % (0-10); NRBC Flagged by Analyzer 0 % (0-5); Neutrophil # 6.35 X10^3/uL (2.7-7.7); Neutrophil % 67.2 % (47-70); Platelet Count 187 K/mm3 (150-450); RBC Distribution Width CV 12.4 % (11.6-14.6); RBC Distribution Width SD 43.6 fl (35.1-43.9); Red Blood Count 3.95 M/mm3 (4.6-6.2); White Blood Count 9.5 K/mm3 (4.4-11.0)
[2023-06-24 08:53] LABS: Anion Gap 3 (5-15); BUN 21 mg/dL (7-18); Calcium,Total 9.4 mg/dL (8.5-10.1); Chloride 108 mmol/L (98-107); Creatinine, Serum 0.95 mg/dL (0.70-1.30); EST Glomerular Filtration Rate 81 mL/min (>60); Est Glom Filt Rate - Afr Amer 99 mL/min (>60); Estimated Creatinine Clearance 59.33 ml/min; Glucose 207 mg/dL (74-106); Potassium 3.8 mmol/L (3.5-5.1); Sodium Level 139 mmol/L (136-145)
--- NOTE | 2023-06-24 09:17 | PN.SURG_ITS ---
Subjective Subjective Mr Cardenas is a 77-year-old male seen at bedside today for follow-up of status post surgery consisting of tendo Achilles lengthening, floating metatarsal osteotomy of the fourth metatarsal and sesamoidectomy all of the right lower extremity. Patient states she is having no pain to the right lower extremity. He continues to be nonweightbearing to right lower extremity. AO splint is clean dry and intact. Patient complains of painful elongated toenails to the left foot and would like them cut at this time. He denies any falls since being in the hospital. He denies trauma. Denies constitutional symptoms. No other pedal complaints at this time. Objective Data Objective Data Vital Signs: Vital Signs Temp Pulse Resp BP Pulse Ox O2 Del Method 98.3 F 73 16 148/77 H 99 Room Air 06/24/23 01:51 06/24/23 01:51 06/24/23 01:51 06/24/23 01:51 06/24/23 01:51 06/24/23 01:51 Oxygen Delivery Method Room Air Weight: 63.412 kg Body Mass Index (BMI) 20.6 Intake & Output: Intake and Output for Last 24 Hours 06/22/23 06/23/23 06/24/23 23:59 23:59 23:59 Intake Total 492.5 / 492.5 100 / 100 Output Total 200 / 200 75 / 75 Balance 292.5 / 292.5 25 Lab / Micro Data Attestation: I reviewed the patient's lab results. 06/24/23 08:28 06/24/23 08:28 Labs: Laboratory Results - last 24 hr 06/24/23 08:28: WBC 9.5, RBC 3.95 L, Hgb 12.4 L, Hct 38.0 L, MCV 96.2 H, MCH 31.4, MCHC 32.6, RDW Std Deviation 43.6, RDW Coeff of Christie 12.4, Plt Count 187, MPV 10.4, Immature Gran % (Auto) 0.200, Neut % (Auto) 67.2, Lymph % (Auto) 18.2 L, Mcminn % (Auto) 13.6 H, Eos % (Auto) 0.4, Baso % (Auto) 0.4, Absolute Neuts (auto) 6.4, Absolute Lymphs (auto) 1.72, Nucleated RBC % 0, Sodium 139, Pot assium 3.8, Chloride 108 H, Carbon Dioxide 28.0, Anion Gap 3 L, BUN 21 H, Creatinine 0.95, Estim Creat Clear Calc 59.33, Est GFR (MDRD) Af Amer 99, Est GFR (MDRD) Non-Af 81, BUN/Creatinine Ratio 22.0 H, Glucose 207 H, Calcium 9.4 Radiography Diagnostic Testing: Radiology Impression Foot X-Ray 06/23/23 07:30 IMPRESSION: Fluoroscopy during surgery. Electronically Signed: Param Ziegler MD at 17:05 EDT , Physical Exam Narrative Neurovascular status is unchanged. Nonpitting edema appreciated distal and proximal aspect of the AO splint to the right lower extremity. Active and passive range of motions to right lower extremity pain-free. Evidence of thickened elongated toenails 1 through 5 to left lower extremity. Evidence of distal calluses to digits 2 and 3, stable with no sign of infection. Evidence there is xerosis appreciated to the left foot. No pain with calf compression bilateral. Assessment & Plan Assessment/Plan (1) Gait instability: PLAN: Patient was examined and evaluated. All findings were discussed with the patient. All questions were answered to the patient satisfaction as well as with his at bedside. Right lower extremity AO splint was left clean dry and intact. Patient is currently a fall risk will need assistance with going to the bathroom. Marito munoz's is bedside today. Patient is to be nonweightbearing to the right lower extremity. Full weightbearing to left lower extremity with assistance. Toenails 1 through 5 on the left lower extremity debrided down to and including normal levels with a sterile double-action nail nipper without incident. Patient expressed relief after debridement of his toenails. The distal calluses to digits 2 and 3 are stable with no sign of infection. For Lac-Hydrin was placed today. Please apply twice daily to left lower extremity. Podiatry will apply to the right lower extremity with changing of the AO splint. Recommend SNF placement since the patient is a fall risk. Medicine: On board for medical management. PT/OT: Consult pending Social work: Consult pending Please reach out to Dr. Schaeffer with any questions or concerns. 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 This will be applied twice daily to left lower extremity. (8) Tinea unguium: PLAN: Toenails 1 through 5 on the left lower extremity debrided down to and including normal levels with a sterile double-action nail nipper without incident. Patient expressed relief after debridement of his toenails.
--- NOTE | 2023-06-24 10:12 | PN.HOSP_ITS ---
Reason for Visit Reason for Visit: Consult requested by Dr. Lema for medical mgmt. Subjective Subjective Denies complaints. Objective Data Objective Data Vital Signs: Vital Signs Temp Pulse Resp BP Pulse Ox O2 Del Method 36.8 C 73 16 148/77 H 99 Room Air 06/24/23 01:51 06/24/23 01:51 06/24/23 01:51 06/24/23 01:51 06/24/23 01:51 06/24/23 01:51 Oxygen Delivery Method Room Air Weight: 63.412 kg Body Mass Index (BMI) 20.6 Intake & Output: Intake and Output for Last 24 Hours 06/22/23 06/23/23 06/24/23 23:59 23:59 23:59 Intake Total 492.5 / 492.5 100 / 100 Output Total 200 / 200 75 / 75 Balance 292.5 / 292.5 Lab / Micro Data 06/24/23 08:28 06/24/23 08:28 Labs: Laboratory Results - last 24 hr 06/24/23 08:28: WBC 9.5, RBC 3.95 L, Hgb 12.4 L, Hct 38.0 L, MCV 96.2 H, MCH 31.4, MCHC 32.6, RDW Std Deviation 43.6, RDW Coeff of Christie 12.4, Plt Count 187, MPV 10.4, Immature Gran % (Auto) 0.200, Neut % (Auto) 67.2, Lymph % (Auto) 18.2 L, Burke % (Auto) 13.6 H, Eos % (Auto) 0.4, Baso % (Auto) 0.4, Absolute Neuts (auto) 6.4, Absolute Lymphs (auto) 1.72, Nucleated RBC % 0, Sodium 139, Potassium 3.8, Chloride 108 H, Carbon Dioxide 28.0, Anion Gap 3 L, BUN 21 H, Creatinine 0.95, Estim Creat Clear Calc 59.33, Est GFR (MDRD) Af Amer 99, Est GFR (MDRD) Non-Af 81, BUN/Creatinine Ratio 22.0 H, Glucose 207 H, Calcium 9.4 Radiography Diagnostic Testing: Radiology Impression Foot X-Ray 06/23/23 07:30 IMPRESSION: Fluoroscopy during surgery. Electronically Signed: Param Ziegler MD at 17:05 EDT , Physical Exam Const alert and no apparent distress HEENT head/scalp atraumatic and moist oral mucous membranes Resp normal respiratory effort, no retractions, no use of accessory muscles and clear to auscultation bilaterally Cardio regular rate, regular rhythm, S1 normal heart sound and S2 normal heart sound GI normal to inspection, nondistended, normoactive bowel sounds and soft to palpation Assessment & Plan Assessment/Plan (1) Non-pressure chronic ulcer of other part of right foot with fat layer exposed: PLAN: Status post: 1) tendo Achilles lengthening right lower extremity 2) floating metatarsal osteotomy right fourth metatarsal 3) sesamoidectomy right plantar first metatarsal head Mgmt per podiatry PLAN: Plan DM2, NID: continue metformin. Add SSI Parkinson's disease: continue carbidopa/levodopa Dementia: continue donepezil VTE prophylaxis: per podiatry Disposition: to SNF. Medically stable for discharge. Charges/Coding Visit Charges Inpatient E&M: 00608 Subs Hosp L2
[2023-06-24 10:14] VITALS: BP 125/66; PULSE 69; RESP 16; TEMP 36.7; O2SAT 98
[2023-06-24] MEDS: Menthol/Lanolin/Calamine/Znox 113 GM Tube 1 APPLIC TOPICAL ×2 (11:37→20:12)
[2023-06-24] MEDS: Carbidopa/Levodopa 25/100 Tablet PO ×2 (11:42→17:30)
[2023-06-24] MEDS: Heparin Injection (Vial) 5,000 UNIT/ML VIAL 5000 UNIT SC ×2 (11:43→20:13)
[2023-06-24] MEDS: Flu Vacc QS2023-24(65YR UP)/PF 240 MCG/0.7 ML Syringe IM (11:47)
[2023-06-24] MEDS: Insulin Lispro 100 UNIT/ML INSULN.PEN SC ×2 (11:47→17:28)
--- NOTE | 2023-06-24 12:41 | CASEMGMT ---
Social Work SW met w/pt and in room in regard to prior level of care and anticipated discharge. informed SW pt has dementia, she answered questions for pt. PCP: Dr. Myers Specialists: Dr. Lema--podiatry, Dr. Nika Bueno--neurology [facility] Insurance: Medicare, MMO, Medicaid LNOK: , niece, sister in law Living arrangements/Prior level of function: Pt lives home w/ in a two story home. Pt goes up the steps by scooting on his backside as per . assists pt with most ADLs, including cooking, cleaning, medication management, driving, helps wash his back. Pt is able to dress himself, feed himself, and able to clean the rest of himself in the shower. Pt was able to stand for his showers. LW/POA: Both on file, niece Jennifer Barraza is POA and pt's sister in law Mamta Robledo is the alternate([phone]). DME:Pt uses a cane ,has a comfort height commode on the main floor, and has grab bars by the toilet. HHC: Pt has had [facility] in the past SNF: Pt has not been to SNF in the past Plan: SNF. SW did provide to a list of [place] [facility] facilities in pt's preferred geographic area, complete w/quality and resource use data and in pt's insurance network. states they want 1. TCU or 2. Avenue. SW explained will call pt's niece(as she is POA) and will make the referrals. SW called niece, message left. SW also called TCU, message left. SW will continue to follow. LEOBARDO Lee
[2023-06-24 16:42] VITALS: BP 153/80; PULSE 81; RESP 16; TEMP 36.6; O2SAT 100
[2023-06-24] MEDS: metFORMIN HCl 500 MG Tablet PO (17:30)
[2023-06-24 17:48] LABS: Bedside Glucose 346 mg/dL (74-106)
[2023-06-24 20:02] VITALS: BP 159/73; PULSE 70; RESP 18; TEMP 37; O2SAT 100
[2023-06-24] MEDS: Donepezil HCl 10 MG Tablet PO (20:12)
[2023-06-24] MEDS: Atorvastatin Calcium 10 MG Tablet PO (20:13)
[2023-06-24] MEDS: Escitalopram Oxalate 20 MG Tablet PO (20:14)
[2023-06-24] MEDS: QUEtiapine 25 MG Tablet PO (20:41)
[2023-06-24 22:19] LABS: Bedside Glucose 202 mg/dL (74-106)
[2023-06-25 01:02] LABS: Bedside Glucose 257 mg/dL (74-106)
[2023-06-25 05:29] VITALS: BP 134/67; PULSE 68; RESP 18; TEMP 36.9; O2SAT 97
[2023-06-25] MEDS: Insulin Lispro 100 UNIT/ML INSULN.PEN SC ×3 (05:35→16:39)
[2023-06-25 06:09] LABS: Bedside Glucose 192 mg/dL (74-106)
--- NOTE | 2023-06-25 07:41 | PCM.PN.HOSP ---
Reason for Visit Reason for Visit: Diagnoses Tinea unguium (06/23/23) Type 2 diabetes mellitus with diabetic polyneuropathy (06/23/23) Xerosis cutis (06/23/23) Non-pressure chronic ulcer of other part of right foot with fat layer exposed (06/23/23) Non-pressure chronic ulcer of other part of left foot with fat layer exposed (06/23/23) Flexion deformity, right ankle and toes (06/23/23) Short Achilles tendon (acquired), right ankle (06/23/23) Unsteadiness on feet (06/23/23) Subjective Subjective No events overnight. Objective Data Objective Data Vital Signs: Vital Signs Temp Pulse Resp BP Pulse Ox O2 Del Method 36.9 C 68 18 134/67 H 97 Room Air 06/25/23 05:29 06/25/23 05:29 06/25/23 05:29 06/25/23 05:29 06/25/23 05:29 06/25/23 05:30 Oxygen Delivery Method Room Air Weight: 63.412 kg Body Mass Index (BMI) 20.6 Intake & Output: Intake and Output for Last 24 Hours 06/23/23 06/24/23 06/25/23 23:59 23:59 23:59 Intake Total 492.5 / 492.5 100 / 100 Output Total 200 / 200 125 / 125 Balance 292.5 / 292.5 -25 / -25 Lab / Micro Data 06/24/23 08:28 06/24/23 08:28 Labs: Laboratory Results - last 24 hr 06/24/23 08:28: WBC 9.5, RBC 3.95 L, Hgb 12.4 L, Hct 38.0 L, MCV 96.2 H, MCH 31.4, MCHC 32.6, RDW Std Deviation 43.6, RDW Coeff of Christie 12.4, Plt Count 187, MPV 10.4, Immature Gran % (Auto) 0.200, Neut % (Auto) 67.2, Lymph % (Auto) 18.2 L, [place] % (Auto) 13.6 H, Eos % (Auto) 0.4, Baso % (Auto) 0.4, Absolute Neuts (auto) 6.4, Absolute Lymphs (auto) 1.72, Nucleated RBC % 0, Sodium 139, Potassium 3.8, Chloride 108 H, Carbon Dioxide 28.0, Anion Gap 3 L, BUN 21 H, Creatinine 0.95, Estim Creat Clear Calc 59.33, Est GFR (MDRD) Af Amer 99, Est GFR (MDRD) Non-Af 81, BUN/Creatinine Ratio 22.0 H, Glucose 207 H, Calcium 9.4 06/24/23 11:41: POC Glucose 257 H 06/24/23 17:26: POC Glucose 346 H 06/24/23 20:08: POC Glucose 202 H 06/25/23 05:34: POC Glucose 192 H Physical Exam Const alert Constitutional Narrative: up in chair, eating breakfast. HEENT head/scalp atraumatic and moist oral mucous membranes Extremity Extremity Narrative: right foot and lower leg wrapped--did not remove. Assessment & Plan Assessment/Plan (1) Non-pressure chronic ulcer of other part of right foot with fat layer exposed: PLAN: Status post: 1) tendo Achilles lengthening right lower extremity 2) floating metatarsal osteotomy right fourth metatarsal 3) sesamoidectomy right plantar first metatarsal head Mgmt per podiatry Wound cultures growing out Enterobacter and MSSA. Unclear if true infection v colonization. Will treat empirically with Bactrim x7days. PLAN: Plan DM2, NID: continue metformin. Add SSI Parkinson's disease: continue carbidopa/levodopa Dementia: continue donepezil VTE prophylaxis: per podiatry Disposition: to SNF. Medically stable for discharge. The Hospitalist service will sign off, please call with questions. Home meds and Bactrim reconciled by me on discharge OCT. Charges/Coding Visit Charges Inpatient E&M: 18908 Subs Hosp L1
[2023-06-25 08:28] VITALS: BP 159/63; PULSE 68; RESP 16; TEMP 36.7; O2SAT 98
[2023-06-25] MEDS: metFORMIN HCl 500 MG Tablet PO ×2 (08:40→16:40)
[2023-06-25] MEDS: Carbidopa/Levodopa 25/100 Tablet PO ×3 (08:40→16:40)
[2023-06-25] MEDS: Multivitamins,Therapeutic Tablet 1 TABLET PO (08:40)
[2023-06-25] MEDS: Menthol/Lanolin/Calamine/Znox 113 GM Tube 1 APPLIC TOPICAL ×2 (08:41→21:06)
[2023-06-25] MEDS: Heparin Injection (Vial) 5,000 UNIT/ML VIAL 5000 UNIT SC ×2 (08:41→21:11)
[2023-06-25] MEDS: Cholecalciferol (Vit D3) 125 MCG CAPSULE (5,000 UNITS) PO (08:42)
[2023-06-25] MEDS: Escitalopram Oxalate 20 MG Tablet PO (08:42)
--- NOTE | 2023-06-25 10:18 | PN.SURG_ITS ---
Subjective Subjective Mr Cardenas is a 77-year-old male seen at bedside today for follow-up of status post surgery consisting of tendo Achilles lengthening, floating metatarsal osteotomy of the fourth metatarsal and sesamoidectomy all of the right lower extremity. Patient states she is having no pain to the right lower extremity. He continues to be nonweightbearing to right lower extremity. AO splint is clean dry and intact. Denies any left foot pain. He denies any follow-up in the hospital. Denies trauma. Denies constitutional symptoms. No other complaints at this time. Objective Data Objective Data Vital Signs: Vital Signs Temp Pulse Resp BP Pulse Ox O2 Del Method 98.0 F 68 16 159/63 H 98 Room Air 06/25/23 08:28 06/25/23 08:28 06/25/23 08:28 06/25/23 08:28 06/25/23 08:28 06/25/23 08:28 Oxygen Delivery Method Room Air Weight: 63.412 kg Body Mass Index (BMI) 20.6 Intake & Output: Intake and Output for Last 24 Hours 06/23/23 06/24/23 06/25/23 23:59 23:59 23:59 Intake Total 492.5 / 492.5 100 / 100 Output Total 200 / 200 125 / 125 Balance 292.5 / 292.5 -25 / -25 Lab / Micro Data Attestation: I reviewed the patient's lab results. 06/24/23 08:28 06/24/23 08:28 Labs: Laboratory Results - last 24 hr 06/24/23 11:41: POC Glucose 257 H 06/24/23 17:26: POC Glucose 346 H 06/24/23 20:08: POC Glucose 202 H 06/25/23 05:34: POC Glucose 192 H Physical Exam Narrative Neurovascular status is unchanged. Nonpitting edema appreciated distal and proximal aspect of the AO splint to the right lower extremity. Active and passive range of motions to right lower extremity pain-free. Toenails 1 through 5 on the left foot within normal limits.. Evidence of distal calluses to digits 2 and 3, stable with no sign of infection. Evidence there is xerosis appreciated to the left foot. No pain with calf compression bilateral. Assessment & Plan Assessment/Plan (1) Gait instability: PLAN: Patient was examined and evaluated. All findings were discussed with the patient. All questions were answered to the patient satisfaction as well as with his at bedside. Right lower extremity AO splint was left clean dry and intact. Patient is currently a fall risk will need assistance with going to the bathroom. Patient's is bedside today. Patient is to be nonweightbearing to the right lower extremity. Full weightbearing to left lower extremity with assistance. The distal calluses to digits 2 and 3 are stable with no sign of infection. Recommend SNF placement since the patient is a fall risk. Medicine: On board for medical management. PT/OT: on board, working with patient Social work: Plan: SNF. SW did provide to a list of correction facilities in pt's preferred geographic area, complete w/quality and resource use data and in pt's insurance network. states they want 1. TCU or 2. [facility]. SW explained will call pt's niece(as she is POA) and will make the referrals. Please reach out to Dr. Schaeffer with any questions or concerns. 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
[2023-06-25] MEDS: Smz/Tmp Ds Tablet 1 TABLET PO ×2 (11:09→21:09)
[2023-06-25 11:54] LABS: Bedside Glucose 218 mg/dL (74-106)
[2023-06-25 14:00] VITALS: BP 141/76; PULSE 78; RESP 16; TEMP 36.6; O2SAT 100
[2023-06-25 16:59] LABS: Bedside Glucose 199 mg/dL (74-106)
[2023-06-25 20:59] VITALS: BP 125/65; PULSE 96; RESP 18; TEMP 36.5; O2SAT 98
[2023-06-25] MEDS: Ammonium Lactate 225 gm Bottle 1 APPLIC TOPICAL (21:07)
[2023-06-25] MEDS: QUEtiapine 25 MG Tablet PO (21:08)
[2023-06-25] MEDS: Donepezil HCl 10 MG Tablet PO (21:08)
[2023-06-25] MEDS: Atorvastatin Calcium 10 MG Tablet PO (21:12)
[2023-06-25 21:36] LABS: Bedside Glucose 246 mg/dL (74-106)
[2023-06-26 04:40] VITALS: BP 130/62; PULSE 77; RESP 18; TEMP 36.8; O2SAT 99
[2023-06-26] MEDS: Insulin Lispro 100 UNIT/ML INSULN.PEN SC ×3 (06:24→17:29)
[2023-06-26 06:38] LABS: Bedside Glucose 205 mg/dL (74-106)
--- NOTE | 2023-06-26 08:20 | PN.SURG_ITS ---
Subjective Subjective Mr Cardenas is a 77-year-old male seen at bedside today for follow-up of status post surgery consisting of tendo Achilles lengthening, floating metatarsal osteotomy of the fourth metatarsal and sesamoidectomy all of the right lower extremity. No acute events overnight. Denies any pain to the right lower extremity. He was sitting up at time of interview and the side chair in his room. Denies constitutional symptoms. No other pedal complaints at this time. Objective Data Objective Data Vital Signs: Vital Signs Temp Pulse Resp BP Pulse Ox O2 Del Method 98.3 F 77 18 130/62 H 99 Room Air 06/26/23 04:40 06/26/23 04:40 06/26/23 04:40 06/26/23 04:40 06/26/23 04:40 06/26/23 04:40 Oxygen Delivery Method Room Air Weight: 63.412 kg Body Mass Index (BMI) 20.6 Intake & Output: Intake and Output for Last 24 Hours 06/24/23 06/25/23 06/26/23 23:59 23:59 23:59 Intake Total 100 / 100 300 / 300 50 / 50 Output Total 125 / 125 150 / 150 100 / 100 Balance -25 / -25 150 / 150 -50 / -50 Lab / Micro Data Attestation: I reviewed the patient's lab results. 06/24/23 08:28 06/24/23 08:28 Labs: Laboratory Results - last 24 hr 06/25/23 11:18: POC Glucose 218 H 06/25/23 16:38: POC Glucose 199 H 06/25/23 21:02: POC Glucose 246 H 06/26/23 06:20: POC Glucose 205 H Physical Exam Narrative Neurovascular status is unchanged. Nonpitting edema appreciated distal and proximal aspect of the AO splint to the right lower extremity. Active and passive range of motions to right lower extremity pain-free. Toenails 1 through 5 on the left foot within normal limits.. Evidence of distal calluses to digits 2 and 3, stable with no sign of infection. Evidence there is xerosis appreciated to the left foot. No pain with calf compression bilateral. Assessment & Plan Assessment/Plan (1) Gait instability: PLAN: Patient was examined and evaluated. All findings were discussed with the patient. All questions were answered to the patient satisfaction. Right lower extremity AO splint will remain clean dry and intact until follow-up with Dr. Lema in approximately 1 week postdischarge. Patient to be nonweightbearing to the right lower extremity. Full weightbearing to left lower extremity. Medicine: On board for medical management PT/OT: On board, working with patient Social work:SNF. SW did provide to a list of half-way facilities in pt's preferred geographic area, complete w/quality and resource use data and in pt's insurance network. states they want 1. TCU or 2. [facility]. SW explain ed will call pt's niece(as she is POA) and will make the referrals. Please reach out to Dr. Schaeffer or Dr. Lema with any questions or concerns. 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
[2023-06-26] MEDS: Carbidopa/Levodopa 25/100 Tablet PO ×3 (08:51→17:30)
[2023-06-26] MEDS: Cholecalciferol (Vit D3) 125 MCG CAPSULE (5,000 UNITS) PO (08:51)
[2023-06-26] MEDS: metFORMIN HCl 500 MG Tablet PO ×2 (08:51→17:30)
[2023-06-26] MEDS: Multivitamins,Therapeutic Tablet 1 TABLET PO (08:51)
[2023-06-26] MEDS: Heparin Injection (Vial) 5,000 UNIT/ML VIAL 5000 UNIT SC ×2 (08:52→20:23)
[2023-06-26] MEDS: Smz/Tmp Ds Tablet 1 TABLET PO ×2 (08:52→21:20)
[2023-06-26] MEDS: Ammonium Lactate 225 gm Bottle 1 APPLIC TOPICAL ×2 (08:53→20:23)
[2023-06-26] MEDS: Menthol/Lanolin/Calamine/Znox 113 GM Tube 1 APPLIC TOPICAL ×2 (08:53→20:22)
[2023-06-26] MEDS: Escitalopram Oxalate 20 MG Tablet PO (08:58)
[2023-06-26 09:00] VITALS: BP 122/56; PULSE 88; RESP 18; TEMP 37; O2SAT 99
--- NOTE | 2023-06-26 11:57 | CASEMGMT ---
Discharge Planning Referral sent to [facility] via [facility]. Lynda Quigley, Discharge Planning Asst.
[2023-06-26 12:14] LABS: Bedside Glucose 192 mg/dL (74-106)
--- NOTE | 2023-06-26 12:19 | CASEMGMT ---
Discharge Planning Patient has been declined by [facility] [place] (no bed availability). SW updated. Lynda Quigley, Discharge Planning Asst.
--- NOTE | 2023-06-26 14:11 | CASEMGMT ---
Social Work - Discharge planning update Referral had been sent over the weekend to TCU. Spoke with TCU admissions counselor about referral. Concern present about NWB status, and that patient's short term stay at TCU would result in placement at another NF facility. This publicity writer called patient's POAHC Meg Barraza. Reviewed choices made by patient's over the weekend, and response from TCU. Discussed with Meg the concern would ultimately be, with patient's dementia, would it be better to get patient to a facility which could care for patient longer and negate multiple move, versus go to TCU with the likelihood of needing to transition to another NF, as NWB status could impact how quickly patient is able to rehabilitate. Meg reports this makes sense, and will agree with whatever patient's wants to do. Asked Lynda, Discharge development and planning engineer to make a referral to [facility], so can discuss options with the . Received notice from Lynda that the [facility] is full. Met with patient and patient's [place]. Introduced to self and role. Patient quiet and non-participative during conversation; smiling and finishing up lunch. Reviewed concerns presented by TCU and also no bed availability at [facility]. The expressed that TCU is most convenient to the to visit, and that had believed rehab would only take about 2 weeks, based on a report that the received from a provider. After much discussion, the did agree that less moves for patient may be better. also educated that [facility] TCU is not medicaid certified, so would be a factor to consider if patient got into the copay period (patient does have medical [employer] as a secondary and then medicaid as a third source of insurance). This publicity writer did let know, that if is adamant about TCU this publicity writer is willing to go back to [facility] and discuss goals of care, etc. asked this publicity writer to check with [facility] and see when a bed might come open. reports would go with [facility] if cannot get patient into [facility]. Message to [facility]. [facility] reports uncertainty when will have a bed open up again. Message to discharge development and planning engineer about making a referral to [facility]. Plan: Working towards Skilled stay at a and referral pending at [facility]. -RYLAN [place]
[2023-06-26 16:42] LABS: Bedside Glucose 204 mg/dL (74-106)
[2023-06-26 16:46] VITALS: BP 114/64; PULSE 90; RESP 18; TEMP 36.8; O2SAT 99
[2023-06-26 20:11] VITALS: BP 133/69; PULSE 96; RESP 18; TEMP 36.6; O2SAT 97
[2023-06-26] MEDS: Tamsulosin HCl 0.4 MG Capsule 0.8 MG PO (20:21)
[2023-06-26] MEDS: Donepezil HCl 10 MG Tablet PO (20:22)
[2023-06-26] MEDS: Atorvastatin Calcium 10 MG Tablet PO (20:23)
[2023-06-26] MEDS: QUEtiapine 25 MG Tablet PO (20:24)
[2023-06-26 22:23] LABS: Bedside Glucose 242 mg/dL (74-106)
[2023-06-27] MEDS: Insulin Lispro 100 UNIT/ML INSULN.PEN SC ×5 (00:13→20:07)
[2023-06-27 04:55] VITALS: BP 122/58; PULSE 91; RESP 18; TEMP 36.8; O2SAT 97
[2023-06-27 07:07] LABS: Bedside Glucose 197 mg/dL (74-106)
[2023-06-27 09:00] VITALS: BP 135/60; PULSE 78; RESP 18; TEMP 36.8; O2SAT 98
[2023-06-27] MEDS: Cholecalciferol (Vit D3) 125 MCG CAPSULE (5,000 UNITS) PO (09:01)
[2023-06-27] MEDS: Carbidopa/Levodopa 25/100 Tablet PO ×3 (09:01→16:00)
[2023-06-27] MEDS: Smz/Tmp Ds Tablet 1 TABLET PO ×2 (09:01→20:08)
[2023-06-27] MEDS: Multivitamins,Therapeutic Tablet 1 TABLET PO (09:01)
[2023-06-27] MEDS: metFORMIN HCl 500 MG Tablet PO ×2 (09:01→15:59)
[2023-06-27] MEDS: Ammonium Lactate 225 gm Bottle 1 APPLIC TOPICAL ×2 (09:02→20:08)
[2023-06-27] MEDS: Menthol/Lanolin/Calamine/Znox 113 GM Tube 1 APPLIC TOPICAL ×2 (09:02→20:09)
[2023-06-27] MEDS: Heparin Injection (Vial) 5,000 UNIT/ML VIAL 5000 UNIT SC ×2 (09:03→20:17)
[2023-06-27] MEDS: Escitalopram Oxalate 20 MG Tablet PO (09:07)
--- NOTE | 2023-06-27 09:08 | CASEMGMT ---
Discharge Planning Referral sent to [facility] via [facility]. Lynda Quigley, Discharge Planning Asst.
[2023-06-27 09:43] VITALS: BP 108/51; PULSE 90; RESP 18; TEMP 36.8; O2SAT 98
[2023-06-27 12:30] LABS: Bedside Glucose 239 mg/dL (74-106)
--- NOTE | 2023-06-27 13:35 | PN_ITS ---
Subjective Subjective no changes overnight Objective Data Objective Data Vital Signs: Vital Signs Temp Pulse Resp BP Pulse Ox O2 Del Method 98.2 F 90 18 108/51 L 98 Room Air 06/27/23 09:43 06/27/23 09:43 06/27/23 09:43 06/27/23 09:43 06/27/23 09:43 06/27/23 09:43 Oxygen Delivery Method Room Air Weight: 63.412 kg Body Mass Index (BMI) 20.6 Intake & Output: Intake and Output for Last 24 Hours 06/25/23 06/26/23 06/27/23 23:59 23:59 23:59 Intake Total 300 / 300 1400 / 1400 800 / 800 Output Total 150 / 150 200 / 200 Balance 150 / 150 1200 / 1200 800 / 800 Lab / Micro Data 06/24/23 08:28 06/24/23 08:28 Labs: Laboratory Results - last 24 hr 06/26/23 16:24: POC Glucose 204 H 06/26/23 20:06: POC Glucose 242 H 06/27/23 05:07: POC Glucose 197 H 06/27/23 12:07: POC Glucose 239 H Physical Exam Narrative Neurovascular status is unchanged. Nonpitting edema appreciated distal and proximal aspect of the AO splint to the right lower extremity. Active and passive range of motions to right lower extremity pain-free. Toenails 1 through 5 on the left foot within normal limits.. Evidence of distal calluses to digits 2 and 3, stable with no sign of infection. Evidence there is xerosis appreciated to the left foot. No pain with calf compression bilateral. Const alert and oriented x3 Assessment & Plan Assessment/Plan (1) Gait instability: PLAN: Patient was examined and evaluated. All findings were discussed with the patient. All questions were answered to the patient satisfaction. Right lower extremity AO splint will remain clean dry and intact until follow-up with Dr. Lema in approximately 1 week postdischarge. Patient to be nonweightbearing to the right lower extremity. Full weightbearing to left lower extremity. Medicine: On board for medical management PT/OT: On board, working with patient Social work: d/c to SNF tomorrow (2) Xerosis cutis: (3) Type 2 diabetes mellitus with diabetic polyneuropathy: QUALIFIERS: Diabetes mellitus alf insulin use: without predatory animal exterminator use Qualified Code(s): E11.42 - Type 2 diabetes mellitus with diabetic polyneuropathy (4) Short Achilles tendon (acquired), right ankle: (5) Non-pressure chronic ulcer of other part of right foot with fat layer exposed:
--- NOTE | 2023-06-27 13:36 | CASEMGMT ---
Social Work [facility] pt. Phone call to pt's and HCPOA Meg and updated on discharge plan. Physician updated and pt will likely be ready for dc tomorrow. Plan: [facility], when medically ready DEBORAH Lopez
[2023-06-27] MEDS: Tamsulosin HCl 0.4 MG Capsule 0.8 MG PO (16:00)
[2023-06-27 16:24] LABS: Bedside Glucose 277 mg/dL (74-106)
[2023-06-27 16:40] VITALS: BP 129/85; PULSE 85; RESP 18; TEMP 37.2; O2SAT 98
[2023-06-27] MEDS: QUEtiapine 25 MG Tablet PO (20:08)
[2023-06-27] MEDS: Donepezil HCl 10 MG Tablet PO (20:08)
[2023-06-27 20:10] VITALS: BP 120/75; PULSE 92; RESP 18; TEMP 37.1; O2SAT 98
[2023-06-27] MEDS: Atorvastatin Calcium 10 MG Tablet PO (20:20)
[2023-06-27 20:40] LABS: Bedside Glucose 281 mg/dL (74-106)
[2023-06-28] MEDS: QUEtiapine 25 MG Tablet PO (02:17)
[2023-06-28 02:18] VITALS: BP 140/68; PULSE 77; RESP 18; TEMP 37; O2SAT 100
[2023-06-28] MEDS: Insulin Lispro 100 UNIT/ML INSULN.PEN SC (04:18)
[2023-06-28 04:38] LABS: Bedside Glucose 200 mg/dL (74-106)
[2023-06-28 08:20] VITALS: BP 145/71; PULSE 89; RESP 16; TEMP 36.5; O2SAT 96
[2023-06-28] MEDS: Ammonium Lactate 225 gm Bottle 1 APPLIC TOPICAL (08:29)
[2023-06-28] MEDS: Cholecalciferol (Vit D3) 125 MCG CAPSULE (5,000 UNITS) PO (08:29)
[2023-06-28] MEDS: Escitalopram Oxalate 20 MG Tablet PO (08:29)
[2023-06-28] MEDS: Multivitamins,Therapeutic Tablet 1 TABLET PO (08:29)
[2023-06-28] MEDS: Smz/Tmp Ds Tablet 1 TABLET PO (08:29)
[2023-06-28] MEDS: Carbidopa/Levodopa 25/100 Tablet PO (08:30)
[2023-06-28] MEDS: Menthol/Lanolin/Calamine/Znox 113 GM Tube 1 APPLIC TOPICAL (08:30)
[2023-06-28] MEDS: metFORMIN HCl 500 MG Tablet PO (08:30)
--- NOTE | 2023-06-28 08:30 | PCM.TXEXTCAR ---
Diet Diet Order/Speech Therapy: 06/23/23 08:56 Diet: Consistent Carb - Calorie Controlled Food consistency:: Regular Liquid Consistency:: Regular/Thin How many daily calories?: 2000 calorie Routine Orders/Code Status Routine Lab Work: CBC (weekly) and BMP (weekly) Code Status: Full Code Wound(s) RT FOOT: Wound Type: Surgical Incision Dressing Change: keep intact, surgeon to change at follow up Suggestions for Active Care Positions to Avoid: keep heels offloaded via heel float or prevalon boots when supine Therapies Weight Bearing: Non weight bearing (non-weightbearing on right, can heel weightbear in surgical shoe for transfer purposes) Extremity Affected:: Right Lower Physical Therapy: Eval and Treat Occupational Therapy: Eval and Treat Problem/Diagnosis (1) Gait instability: Status: Acute Code(s): R26.81 - Unsteadiness on feet Plan: Patient was examined and evaluated. All findings were discussed with the patient. All questions were answered to the patient satisfaction. Right lower extremity AO splint will remain clean dry and intact until follow-up with Dr. Lema in approximately 1 week postdischarge. Patient to be nonweightbearing to the right lower extremity. Full weightbearing to left lower extremity. Medicine: On board for medical management PT/OT: On board, working with patient Social work: d/c to SNF tomorrow (2) Xerosis cutis: Status: Acute Code(s): L85.3 - Xerosis cutis (3) Type 2 diabetes mellitus with diabetic polyneuropathy: Status: Acute Code(s): E11.42 - Type 2 diabetes mellitus with diabetic polyneuropathy (4) Short Achilles tendon (acquired), right ankle: Status: Acute Code(s): M67.01 - Short Achilles tendon (acquired), right ankle (5) Non-pressure chronic ulcer of other part of right foot with fat layer exposed: Status: Chronic Code(s): L97.512 - Non-pressure chronic ulcer of other part of right foot with fat layer exposed (6) Flexion deformity, right ankle and toes: Status: Acute Code(s): M21.271 - Flexion deformity, right ankle and toes Allergies/Procedures Done in Hospital Allergies codeine Adverse Reaction (Verified 06/16/23 15:11) Nausea/Vom/Diarrhea Type of Care/Length of Stay Estimated LOS: Convalescent Care Less Than 30 days Type of Care Needed: Skilled Rehab Potential: Good Prognosis: Good Additional Orders/Day of Discharge Day of Discharge: 06/28/23 Follow Up Care Please Follow Up With: Moustapha Lema DPM When: 1 week, call [facility] for appointment time Discharge Plan Admission Admit Date/Time: 06/23/23 08:54 Attending Provider: Moustapha Lema Primary Care Provider: Pawel Myers Consulting Providers: Jose Thakkar Instructions Additional Instructions / Restrictions: Keep dressing clean dry and intact right lower extremity Maintain nonweightbearing status right lower extremity, patient can heel weight-bear for transfer purposes under supervision Keep right lower extremity elevated to allow for edema management when patient resting in supine position Patient will follow-up with Dr. Del Rio in 1 week, call for appointment Discharge Orders/Prescriptions Prescriptions: New sulfamethoxazole-trimethoprim 800-160 mg Tablet 1 tab PO BID Qty: 0 0RF Continued escitalopram oxalate [Lexapro] 20 mg tablet 20 mg PO DAILY donepezil [Aricept] 10 mg tablet 10 mg PO QHS carbidopa-levodopa 25MG-10 tablet extended release 1 tab PO TID atorvastatin 10 MG tablet 10 mg PO QHS cholecalciferol (vitamin D3) 1,000 UNIT tablet 5,000 unit PO DAILY acidophilus-pectin, citrus 1 TABLET tablet 1 tab PO DAILY 0RF multivitamin Tablet 1 tab PO DAILY metformin 1,000 MG tablet 500 mg PO BIDCM Referrals / Follow Up: Moustapha Lema DPM [Med Staff - Active Staff] - Pawel Myers MD [Primary Care Provider] - Disposition Disposition (needs filled in before D/C Order can be placed): [facility] (3) Type 2 diabetes mellitus with diabetic polyneuropathy Qualifiers: 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
[2023-06-28] MEDS: Heparin Injection (Vial) 5,000 UNIT/ML VIAL 5000 UNIT SC (08:31)
--- NOTE | 2023-06-28 08:34 | PCM.DC.SUM ---
Providers Date of Admission: 06/23/23 Primary Care Physician: Dr. Pawel Myers MD Consultations 06/23/23 08:54 Consult: Hospitalist Routine Consulting Provider: Jose Thakkar Reason for Consult: med management EMERGENT Consult: No MD Notified: Yes Date Notified: 06/23/23 Time Notified: 08:57 Method of Notification: Verbal Reason For Visit: Right foot tendo-achilles lengtheni Diagnosis Discharge Diagnosis (1) Gait instability: Status: Acute Code(s): R26.81 - Unsteadiness on feet Plan: Patient was examined and evaluated. All findings were discussed with the patient. All questions were answered to the patient satisfaction. Right lower extremity AO splint will remain clean dry and intact until follow-up with Dr. Lema in approximately 1 week postdischarge. Patient to be nonweightbearing to the right lower extremity. Full weightbearing to left lower extremity. Medicine: On board for medical management PT/OT: On board, working with patient Social work: d/c to SNF tomorrow (2) Xerosis cutis: Status: Acute Code(s): L85.3 - Xerosis cutis (3) Type 2 diabetes mellitus with diabetic polyneuropathy: Status: Acute Code(s): E11.42 - Type 2 diabetes mellitus with diabetic polyneuropathy Qualifiers: Diabetes mellitus senior living insulin use: without intermodal truck driver use Qualified Code(s): E11.42 - Type 2 diabetes mellitus with diabetic polyneuropathy (4) Short Achilles tendon (acquired), right ankle: Status: Acute Code(s): M67.01 - Short Achilles tendon (acquired), right ankle (5) Non-pressure chronic ulcer of other part of right foot with fat layer exposed: Status: Chronic Code(s): L97.512 - Non-pressure chronic ulcer of other part of right foot with fat layer exposed (6) Flexion deformity, right ankle and toes: Status: Acute Code(s): M21.271 - Flexion deformity, right ankle and toes Medications at Discharge Home Medications donepezil 10 mg tablet (Aricept) 10 mg PO QHS memory 06/26/18 escitalopram oxalate 20 mg tablet (Lexapro) 20 mg PO DAILY anxiety 06/26/18 atorvastatin 10 mg tablet 10 mg PO QHS cholesterol 08/26/19 carbidopa ER 25 mg-levodopa 100 mg tablet,extended release 1 tab PO TID parkinsons 08/26/19 cholecalciferol (vitamin D3) 25 mcg (1,000 unit) tablet 5,000 unit PO DAILY supplement 08/26/19 acidophilus 25 million cell-pectin, citrus 100 mg tablet 1 tab PO DAILY 09/11/19 metformin 1,000 mg tablet 500 mg PO BIDCM 06/16/23 multivitamin 1 tab PO DAILY 06/16/23 sulfamethoxazole 800 mg-trimethoprim 160 mg tablet 1 tab PO BID #0 tabs 06/25/23 Hospital Course Summary of Care Provided Hospital Course: Patient mated postoperatively. Due to advanced age, poor cognitive status, and risk for falls postop patient was admitted for SNF placement to allow for maintenance of nonweightbearing to allow for plantar right foot wounds to heal. Patient typically requires adult daycare in the outpatient status. Care for the and managing the patient's wound and weightbearing status would be to motion but the patient at significant risk of hip fracture or worse. Patient underwent floating metatarsal osteotomy right fourth metatarsal, sesamoidectomy right foot, tendo Achilles lengthening right lower extremity to allow for wound offloading and healing. The goal is to get the patient back in diabetic shoes for daily ambulation purposes. Patient has had no issues during his hospital stay and will discharge to group home facility today. Physical Exam Narrative Neurovascular status is unchanged. Nonpitting edema appreciated distal and proximal aspect of the AO splint to the right lower extremity. Active and passive range of motions to right lower extremity pain-free. Toenails 1 through 5 on the left foot within normal limits.. Evidence of distal calluses to digits 2 and 3, stable with no sign of infection. Evidence there is xerosis appreciated to the left foot. No pain with calf compression bilateral. Const alert and oriented x3 Weight / BMI Weight Weight: 63.412 kg Body Mass Index (BMI) 20.6 ABG / Lab / Microbiology Data 06/24/23 08:28 06/24/23 08:28 Laboratory: Laboratory Results - last 24 hr 06/27/23 12:07: POC Glucose 239 H 06/27/23 15:51: POC Glucose 277 H 06/27/23 20:04: POC Glucose 281 H 06/28/23 04:17: POC Glucose 200 H D/C Instructions Please Follow Up With: Moustapha Lema DPM Meaningful Use Info Meaningful Use Diagnoses (Choose all that apply): None applicable Discharge Plan Admission Admit Date/Time: 06/23/23 08:54 Attending Provider: Moustapha Lema Primary Care Provider: Pawel Myers Consulting Providers: Jose Thakkar Discharge Orders/Prescriptions Prescriptions: New sulfamethoxazole-trimethoprim 800-160 mg Tablet 1 tab PO BID Qty: 0 0RF Continued escitalopram oxalate [Lexapro] 20 mg tablet 20 mg PO DAILY donepezil [Aricept] 10 mg tablet 10 mg PO QHS carbidopa-levodopa 25MG-10 tablet extended release 1 tab PO TID atorvastatin 10 MG tablet 10 mg PO QHS cholecalciferol (vitamin D3) 1,000 UNIT tablet 5,000 unit PO DAILY acidophilus-pectin, citrus 1 TABLET tablet 1 tab PO DAILY 0RF multivitamin Tablet 1 tab PO DAILY metformin 1,000 MG tablet 500 mg PO BIDCM Referrals / Follow Up: Pawel Myers MD [Primary Care Provider] - Disposition Disposition (needs filled in before D/C Order can be placed): [facility]
--- NOTE | 2023-06-28 09:26 | CASEMGMT ---
Social Work 7000 convalescent from completed in [facility] for admission to SNF today. Disposition: [facility], Skilled level of Care under convalescent stay. DEBORAH Lopez
--- NOTE | 2023-06-28 09:29 | NURSING ---
called [facility] to give report no answer. left message.
--- NOTE | 2023-06-28 09:58 | NURSING ---
attempted to give report to w, no answer. message left to return call
--- NOTE | 2023-06-28 10:28 | CASEMGMT ---
Discharge Planning Discharge orders, signed med list, covid results, and transport time sent to [facility] via [facility]. [facility] will transport patient by cot at 10:30a. Nursing, SW, and patients HC POA updated. She will update patients . Lynda Quigley, Discharge Planning Asst.
== END 2023-06-28 10:50 | disposition skilled nursing facility (03) | DRG 629 ==
LOC: SDC 06-24 11:35 → MS3 06-24 11:35
PROVIDERS: Admitting Provider Podiatrist; PCP Family Medicine; Referring Provider Podiatrist; Visit Provider Podiatrist
PROC: 0QBN0ZZ Excision of Right Metatarsal, Open Approach (ICD-10-PCS; CPT 27650; principal; 2023-06-23 07:15)
DX: E11.621 Type 2 diabetes mellitus with foot ulcer (principal); F33.1 Major depressive disorder, recurrent, moderate; E11.42 Type 2 diabetes mellitus with diabetic polyneuropathy; B35.1 Tinea unguium; B95.2 Enterococcus as the cause of diseases classified elsewhere; B95.61 Methicillin susceptible Staphylococcus aureus infection as the cause of diseases classified elsewhere; L97.512 Non-pressure chronic ulcer of other part of right foot with fat layer exposed; F02.A0 Dementia in other diseases classified elsewhere, mild, without behavioral disturbance, psychotic disturbance, mood disturbance, and anxiety; I10 Essential (primary) hypertension; M67.01 Short Achilles tendon (acquired), right ankle; E55.9 Vitamin D deficiency, unspecified; E78.00 Pure hypercholesterolemia, unspecified; L85.3 Xerosis cutis; M21.271 Flexion deformity, right ankle and toes; F41.9 Anxiety disorder, unspecified; M62.461 Contracture of muscle, right lower leg; G20.A1 Parkinson's disease without dyskinesia, without mention of fluctuations; Z79.84 Long term (current) use of oral hypoglycemic drugs; Z79.899 Other long term (current) drug therapy; Z87.891 Personal history of nicotine dependence; Z23 Encounter for immunization
CPT/HCPCS: 36415; 73620; 76000; 80048; 82962; 85025; 87426; 88302; 88305; 88311; 97110; 97116; 97162; 97166; 97530; 97535; J7120; 90662; J2405

== ENCOUNTER → 2023-11-27 | Outpatient (CLI) | payer MEDICARE, OTHER, MEDICAID, SELFPAY ==
[2023-11-27 16:27] LABS: PSA,Total - Annual Screen 0.65 ng/mL (0.00-4.00)
== END | disposition home or self-care (01) ==
LOC: LAB 14:28
PROVIDERS: PCP Family Medicine; Referring Provider Nurse Practitioner; Visit Provider Nurse Practitioner
DX: Z12.5 Encounter for screening for malignant neoplasm of prostate (principal)
CPT/HCPCS: 36415; 84153; G0103

== ENCOUNTER 2024-02-02 15:26 | Inpatient (IN) | payer MEDICARE, OTHER, MEDICAID, SELFPAY ==
--- NOTE | 2024-01-29 08:57 | EKG12_ITS ---
Test Reason : PREOP Blood Pressure : / mmHG Vent. Rate : 073 BPM Atrial Rate : 073 BPM P-R Int : 138 ms QRS Dur : 072 ms QT Int : 398 ms P-R-T Axes : 059 040 016 degrees QTc Int : 438 ms Normal sinus rhythm Low voltage QRS Nonspecific ST and T wave abnormality Abnormal ECG Confirmed by MEKA RAMIREZ, ALVAREZ ([id number]), electronic news gathering editor PARVEEN MENDOZA ([id number]) on 01/30/2024 6:04:45 AM Referred By: Trev Reed Confirmed By:ALVAREZ ACKERMAN MD
[2024-01-29 10:30] LABS: Hematocrit 40.8 % (40-54); Hemoglobin 13.2 g/dL (13.0-16.5); Mean Corp Hgb Conc 32.4 g/dL (32-36); Mean Corpuscular Hgb 31.1 pg (27.0-32.0); Mean Corpuscular Volume 96.2 fL (80-94); Mean Platelet Vol. 10.7 fl (6.2-12.0); Platelet Count 216 K/mm3 (150-450); RBC Distribution Width CV 12.6 % (11.6-14.6); RBC Distribution Width SD 44.5 fl (35.1-43.9); Red Blood Count 4.24 M/mm3 (4.6-6.2); White Blood Count 7.6 K/mm3 (4.4-11.0)
[2024-01-29 12:35] LABS: Anion Gap 6 (5-15); BUN 34 mg/dL (7-18); BUN/Creat Ratio 31.2 RATIO (10-20); Calcium,Total 10.3 mg/dL (8.5-10.1); Chloride 102 mmol/L (98-107); Creatinine, Serum 1.09 mg/dL (0.70-1.30); EST Glomerular Filtration Rate 70 mL/min (>60); Est Glom Filt Rate - Afr Amer 84 mL/min (>60); Glucose 201 mg/dL (74-106); Potassium 4.3 mmol/L (3.5-5.1); Sodium Level 135 mmol/L (136-145)
[2024-01-29 16:03] LABS: Hemoglobin A1c 8.1 % (3.8-5.6)
[2024-02-02] VITALS (10 sets, daily range): BP systolic 127–183; BP diastolic 70–91; PULSE 74–84; RESP 14–18; TEMP 36.1–36.8; O2SAT 95–100; BMI 20.7
--- NOTE | 2024-02-02 | PROSB_PTH ---
PATIENT: JODIE AMAYA LOC: MS3 U#:[id number] AGE/SX: 78/M [place] [facility] [place]: Dr. Trev Reed MD : 1945 BED: 1 DIS: 02/05/2024 SPEC #: [id number] RECD: 02/02/24 11:56 STATUS: RICHARD WILKES #: [id number] YVETTE: 02/02/24 00:[address]: Trev Reed DEPT: SURGICAL PATHOLOGY RECD BY: Rosalina Berumen ENTERED: 02/02/24 13:17 SP TYPE: PROST BX OTHR DR: Dr. Pawel Myers MD Tissues: Prostate, NOS Procedures: Surgery Specimen Level IV HEADER OPERATION: Transurethral resection of prostate with Olympus PRE-OP DIAGNOSIS: BPH with UTI, calculus in bladder, phimosis TISSUE SUBMITTED: Prostate tissue and bladder calculi MICROSCOPIC DIAGNOSIS Prostate and bladder, transurethral resection: Benign nodular hyperplasia. Mild chronic inflammation. Focal dystrophic microcalcifications. Urinary calculi, removal: Unremarkable calculi. (gross diagnosis only). MATT/ 02/05/2024 MICROSCOPIC DESCRIPTION Slides are reviewed. GROSS DESCRIPTION Received is one container labeled with the patient's name and designated prostate tissue and bladder calculi. The specimen consists of multiple irregular fragments of pink-mejia, rubbery, soft tissue that in aggregate weigh 9.2 gm consists of multiple pieces of mejia-indurated tissue measure in aggregate 3.0 x 3.5 x 0.6 cm. Also present in the container are multiple fragments of brown stones measuring in aggregate 4.5 x 4.0 x 0.8cm and 0.3 to 1.0cm in greatest dimension. The entire soft tissue is submitted in three cassettes. Stones are for gross identification only. KINGSLEY/ 02/02/24 TC:3 CPT: 67545 ,90818
[2024-02-02] MEDS: Lactated Ringers 1,000 ML 15 ML IV (07:44)
[2024-02-02 08:15] LABS: Bedside Glucose 187 mg/dL (74-106)
[2024-02-02] MEDS: Cefazolin 2 GM in 0.9% Normal Saline (100mL Bag) 100 ML IV (10:27)
--- NOTE | 2024-02-02 10:29 | HP.PCM_ITS ---
HPI - General General Date of Service: 02/02/24 Chief Complaint: TURP and phimosis HPI Narrative JODIE AMAYA, is a 78 M who presents For transurethral section of prostate and also circumcision removal bladder stones the caregiver would like to keep in the hospital for several days and then transferring to assisted care facility nearby will consult social security assessor to work that out [facility] Medical History (Updated 01/18/24 @ 13:28 by Orly Patel) Walker as ambulation aid Prostate disease Anemia Back pain Shortness of breath on exertion History of edema Wears dentures Wears glasses Diabetes High cholesterol History of diverticulitis Former smoker Anxiety Depression History of dementia Parkinsons disease Callus of foot Diarrhea Diabetes mellitus type 2 in nonobese Hypertension Home Medications ?Medication ?Instructions ?Recorded ?Last Taken ?Type donepezil 10 mg tablet (Aricept) 10 mg PO QHS memory 06/26/18 02/01/24 History escitalopram oxalate 20 mg tablet 10 mg PO DAILY anxiety 06/26/18 02/02/24 History (Lexapro) atorvastatin 10 mg tablet 10 mg PO QHS cholesterol 08/26/19 02/01/24 History carbidopa ER 25 mg-levodopa 100 mg 1 tab PO TID parkinsons 08/26/19 02/02/24 History tablet,extended release cholecalciferol (vitamin D3) 25 5,000 unit PO DAILY supplement 08/26/19 06/22/23 History mcg (1,000 unit) tablet acidophilus 25 million 1 tab PO DAILY 09/11/19 02/01/24 Rx cell-pectin, citrus 100 mg tablet multivitamin 1 tab PO DAILY 06/16/23 02/01/24 History metformin 500 mg tablet 500 mg PO BID 01/18/24 02/01/24 History tamsulosin 0.4 mg capsule 0.4 mg PO QHS 01/18/24 02/01/24 History ciprofloxacin HCl 500 mg tablet 500 mg PO BID #10 tabs 02/02/24 Unknown Rx (Cipro) Allergy/AdvReac Type Severity Reaction Status Date / Time codeine AdvReac Nausea/Vom/ Verified 02/02/24 07:30 Diarrhea Family History Father Hypertension Heart disease Surgical History (Updated 01/18/24 @ 13:28 by Orly Patel) Hx of foot surgery Hx of colonoscopy s/p stomach surgery Social History Smoking Status: Former smoker alcohol intake: never Vital Signs Vital Signs Vital Signs: 02/02/24 07:31 02/02/24 07:31 Temperature 97.4 F L Temperature Source Temporal Pulse Rate 76 Respiratory Rate 16 Respiratory Pattern Normal Blood Pressure 127/84 H Blood Pressure Mean 98 Blood Pressure Source Monitor Blood Pressure Position Semi-Fowlers Blood Pressure Location Left Arm Pulse Ox 100 Oxygen Delivery Method Room Air Weight Weight: 63.6 kg Body Mass Index (BMI) 20.7 Results Lab / Micro Data 01/29/24 09:25 01/29/24 09:25 Labs: Laboratory Results - last 24 hr 02/02/24 07:29: POC Glucose 187 H
--- NOTE | 2024-02-02 10:30 | PCM.DC ---
Discharge Instructions Diet Discharge Diet: No restrictions Activity Discharge Activity: Return to Normal Activity and May Not Drive (while taking narcotic pain medications.) Dressing / Incision Call your doctor if you observe: Fever of 101 or Higher Follow Up Care Please Follow Up With: Trev Reed MD When: Call [phone] for an appointment Test Results: Test results from this visit will be discussed in further detail at your follow-up appointment, if applicable. Discharge Plan Admission Primary Reason for Your Visit: circumcision, and TURP Attending Provider: Trev Reed Primary Care Provider: Pawel Myers Instructions Print Language: [place] Discharge Orders/Prescriptions Prescriptions: New ciprofloxacin HCl [Cipro] 500 mg tablet 500 mg PO BID Qty: 10 0RF Continued escitalopram oxalate [Lexapro] 20 mg tablet 10 mg PO DAILY donepezil [Aricept] 10 mg tablet 10 mg PO QHS carbidopa-levodopa 25MG-10 tablet extended release 1 tab PO TID atorvastatin 10 MG tablet 10 mg PO QHS cholecalciferol (vitamin D3) 1,000 UNIT tablet 5,000 unit PO DAILY acidophilus-pectin, citrus 1 TABLET tablet 1 tab PO DAILY 0RF multivitamin Tablet 1 tab PO DAILY metformin 500 mg tablet 500 mg PO BID tamsulosin 0.4 mg capsule 0.4 mg PO QHS Referrals / Follow Up: Trev Reed MD [Med Staff - Active Staff] - Pawel Myers MD [Primary Care Provider] - Disposition Disposition (needs filled in before D/C Order can be placed): Group Home Facility
[2024-02-02] MEDS: Bupivacaine Mpf 0.5% 30 ML VIAL (10:59)
--- NOTE | 2024-02-02 11:18 | PCM.OPRPT ---
Report of Operation Date of Procedure: 02/02/24 Pre-Operative Diagnosis: Severe phimosis of the foreskin, bladder stones large, and BPH with obstruction Post-Operative Diagnosis: Same Surgery/Procedure Performed:: Transurethral section of the prostate, laser cystolitholapaxy of large stones, and circumcision Description of Surgical Findings:: Patient is taken back to the operating room at a smooth induction of general anesthesia he was placed in dorsolithotomy position. Penis and testicles were prepped and draped in usual fashion he had a severely phimotic foreskin was not retractable barely open barely able to urinate through the penis foreskin so tight so therefore proceeded first with a circumcision marked out the incision all the way around the subcoronal area use electrocautery to dissect the foreskin out the penis and then bivalve the foreskin and half and then dissected the foreskin off the subcoronal tissue all the way around circumferentially I then obtained hemostasis and then reapproximated the shaft skin to the subcoronal skin with interrupted stitches all the way around the penis once this was accomplished then dressings were placed on the penis and then went into the bladder with a 26 bladder continuous-flow resectoscope I pulled out the sheath and put a laser bridge to the resectoscope, and then using a 960 ?m laser fiber got inside the bladder heavily trabeculated bladder and a large pile of stones in the base of the bladder I lasered the stones broken up with the large fragments and then back evacuated all the stones out of the bladder through the sheath. After all the stones were evacuated out and after spinach lasering the stones then I switched over the resectoscope using a medium loop I then performed a TURP on the obstructive prostate he had like a high riding median lobe little lateral lobes but no anterior tissue I then resected the prostate from the bladder neck to the verumontanum and a wide open resection the resection past the sphincter in the room in tandem did a flow test had a wide open flow cauterized resection for hemostasis and then made sure all the stone fragments were out of the bladder and placed a 22 Luxembourgish catheter in the bladder for continuous irrigation. Patient anesthetic is being reversed to be kept in the hospital for irrigation of the bladder after TURP Surgeon: Trev Reed Type of Anesthesia: General Drains: 22fr folety Admit VTE Documentation VTE Present on Admission: No VTE Mechan Device Prophylaxis: SCD's VTE Pharm Prophylaxis ordered?: No
[2024-02-02] MEDS: 0.9% Normal Saline (1000mL) 1,000 ML 75 ML IV (12:54)
[2024-02-02] MEDS: Ciprofloxacin 400 MG/200 ML BAG 200 MG IV (17:03)
[2024-02-02] MEDS: metFORMIN HCl 500 MG Tablet PO (17:04)
[2024-02-02] MEDS: Tamsulosin HCl 0.4 MG Capsule PO (21:37)
[2024-02-02] MEDS: Atorvastatin Calcium 10 MG Tablet PO (21:37)
[2024-02-02] MEDS: Donepezil HCl 10 MG Tablet PO (21:37)
[2024-02-02] MEDS: Docusate Sodium 100 MG Capsule 200 MG PO (21:37)
[2024-02-02] MEDS: Carbidopa/Levodopa 25/100 Tablet PO (21:38)
[2024-02-02] MEDS: 0.9% Saline Lock 10 ML Syringe IV (21:38)
[2024-02-03] VITALS (7 sets, daily range): BP systolic 113–156; BP diastolic 57–80; PULSE 76–95; RESP 16–18; TEMP 36.5–37.1; O2SAT 96–100; BMI 20.7
[2024-02-03] MEDS: 0.9% Normal Saline (1000mL) 1,000 ML 75 ML IV (02:33)
[2024-02-03 05:58] LABS: Hematocrit 35.9 % (40-54); Hemoglobin 11.4 g/dL (13.0-16.5); Mean Corp Hgb Conc 31.8 g/dL (32-36); Mean Corpuscular Hgb 30.6 pg (27.0-32.0); Mean Corpuscular Volume 96.5 fL (80-94); Mean Platelet Vol. 10.6 fl (6.2-12.0); Platelet Count 194 K/mm3 (150-450); RBC Distribution Width CV 12.4 % (11.6-14.6); RBC Distribution Width SD 43.7 fl (35.1-43.9); Red Blood Count 3.72 M/mm3 (4.6-6.2); White Blood Count 14.9 K/mm3 (4.4-11.0)
[2024-02-03] MEDS: Ciprofloxacin 400 MG/200 ML BAG 200 MG IV (06:05)
[2024-02-03] MEDS: Carbidopa/Levodopa 25/100 Tablet PO ×3 (06:05→15:06)
[2024-02-03 06:43] LABS: Anion Gap 4 (5-15); BUN 24 mg/dL (7-18); BUN/Creat Ratio 24.7 RATIO (10-20); Calcium,Total 9.1 mg/dL (8.5-10.1); Chloride 105 mmol/L (98-107); Creatinine, Serum 0.97 mg/dL (0.70-1.30); EST Glomerular Filtration Rate 80 mL/min (>60); Est Glom Filt Rate - Afr Amer 96 mL/min (>60); Estimated Creatinine Clearance 57.37 ml/min; Glucose 196 mg/dL (74-106); Potassium 4.1 mmol/L (3.5-5.1); Sodium Level 137 mmol/L (136-145)
[2024-02-03] MEDS: Multivitamins,Therapeutic Tablet 1 TABLET PO ×2 (09:00→09:01)
[2024-02-03] MEDS: metFORMIN HCl 500 MG Tablet PO ×2 (09:00→15:06)
[2024-02-03] MEDS: Lactobacillis Acidophilus 1 CAP PO (09:01)
[2024-02-03] MEDS: Docusate Sodium 100 MG Capsule 200 MG PO ×2 (09:01→20:39)
[2024-02-03] MEDS: Escitalopram Oxalate 10 MG Tablet PO (09:02)
[2024-02-03] MEDS: Cholecalciferol (Vit D3) 125 MCG CAPSULE (5,000 UNITS) PO (09:02)
--- NOTE | 2024-02-03 09:56 | CASEMGMT ---
Addendum entered by Carmen Oneill 02/03/24 10:33: Social Work Pt's niece and POA Meg Barraza called back. SW spoke w/her about discharge plan. She is in agreement w/referral to [place] and pt going there short term, possibly extractions technologist. SW explained will make referral and will keep her informed, and that it is anticipated pt will be here until Monday. CLAUDIA Lee-Rg Original Note: Social Work SW met w/pt and in room in regard to prior level of function and anticipated discharge plan. PCP: Dr. Myers Specialists: Dr. Reed, urology, Dr. Fox, neurology Insurance: Medicare, MMO, Medicaid Prescription Coverage: Yes, through Medicaid [facility]acy of Choice: [facility] in [place] LW/POA: Both on file, niece Meg is listed as POA. is not on the document. Living arrangements/Prior level of function: Pt lives w/ in a two story home. Pt is still able to get up the steps. Pt is able to dress himself sometimes. does the cooking, cleaning, driving, medication set up, mowing, help w/showering, help w/dressing when needed. She explains she is wondering if his Parkinson's is getting worse, as she does see it becoming more difficult for him to get up and down the stairs. She is also having difficulty caring for him at home. She does confirm pt's niece is the POA. She states that the niece is on vacation, will be home tomorrow. DME: Walker, shower chair, comfort height commode HX of HH and SNF: Pt has been to [facility] in the past, had home health after that. Plan: SW spoke w/ who explains she is having more difficulty caring for pt at home. SW did provide to a list from [facility] of correction facilities in network w/pt's insurance, in pt's preferred geographic area, and complete w/quality and resource use data. She states she looked at [place] and wants him to go there, is thinking he may stay correction. She states spoke w/Mónica at [facility] and was told they have beds. SW explained will make referral and that if they can take pt it is anticipated he would go on Monday. states understanding. SW inquired if POA Meg is aware of the plan, states she is. SW explained will call her and check in since she is the POA. SW did call SHARRON Waever, message left. SW will make referral to [facility] later today. SW will continue to follow. LEOBARDO Lee
--- NOTE | 2024-02-03 11:32 | CASEMGMT ---
Social Work Initial referral sent to [facility], PT/OT still pending however. SW will continue to follow. LEOBARDO Lee
[2024-02-03 11:37] LABS: Bedside Glucose 186 mg/dL (74-106)
--- NOTE | 2024-02-03 14:15 | CASEMGMT ---
Social Work [facility] did respond in [facility] that they can take pt, asked for the inpt order. SW sent the inpt order via [facility]. PT/OT still pending, SW will follow up on Monday. LEOBARDO Lee
[2024-02-03] MEDS: Atorvastatin Calcium 10 MG Tablet PO (20:38)
[2024-02-03] MEDS: Tamsulosin HCl 0.4 MG Capsule PO (20:38)
[2024-02-03] MEDS: Donepezil HCl 10 MG Tablet PO (20:39)
[2024-02-03] MEDS: DiphenhydrAMINE 25 MG Capsule PO (20:39)
[2024-02-03] MEDS: Ciprofloxacin 500 MG Tablet PO (20:42)
[2024-02-03] MEDS: MELATONIN 10 MG TABLET 5 MG PO (22:34)
[2024-02-04 02:30] VITALS: BP 140/78; PULSE 84; RESP 16; TEMP 36.7; O2SAT 97
[2024-02-04 05:20] LABS: Hematocrit 35.1 % (40-54); Hemoglobin 11.3 g/dL (13.0-16.5); Mean Corp Hgb Conc 32.2 g/dL (32-36); Mean Corpuscular Hgb 30.9 pg (27.0-32.0); Mean Corpuscular Volume 95.9 fL (80-94); Mean Platelet Vol. 10.5 fl (6.2-12.0); Platelet Count 168 K/mm3 (150-450); RBC Distribution Width CV 12.6 % (11.6-14.6); RBC Distribution Width SD 43.8 fl (35.1-43.9); Red Blood Count 3.66 M/mm3 (4.6-6.2); White Blood Count 10.4 K/mm3 (4.4-11.0)
[2024-02-04] MEDS: Carbidopa/Levodopa 25/100 Tablet PO ×3 (06:25→17:05)
[2024-02-04] MEDS: metFORMIN HCl 500 MG Tablet PO ×2 (09:16→17:05)
[2024-02-04] MEDS: Cholecalciferol (Vit D3) 125 MCG CAPSULE (5,000 UNITS) PO (09:16)
[2024-02-04] MEDS: Lactobacillis Acidophilus 1 CAP PO (09:16)
[2024-02-04] MEDS: Escitalopram Oxalate 10 MG Tablet PO (09:16)
[2024-02-04] MEDS: Ciprofloxacin 500 MG Tablet PO ×2 (09:16→20:44)
[2024-02-04] MEDS: Docusate Sodium 100 MG Capsule 200 MG PO (09:16)
[2024-02-04 09:40] VITALS: BP 101/58; PULSE 71; RESP 16; TEMP 36.8; O2SAT 97
[2024-02-04 14:56] VITALS: BP 124/66; PULSE 73; RESP 16; TEMP 36.7; O2SAT 98
[2024-02-04 20:00] VITALS: BP 151/67; PULSE 76; RESP 16; TEMP 36.6; O2SAT 99
[2024-02-04] MEDS: Tamsulosin HCl 0.4 MG Capsule PO (20:43)
[2024-02-04] MEDS: MELATONIN 10 MG TABLET 5 MG PO (20:44)
[2024-02-04] MEDS: Atorvastatin Calcium 10 MG Tablet PO (20:44)
[2024-02-04] MEDS: Donepezil HCl 10 MG Tablet PO (20:44)
[2024-02-05 03:00] VITALS: BP 111/58; PULSE 74; RESP 16; TEMP 36.7; O2SAT 97
[2024-02-05 05:51] LABS: Hematocrit 35.6 % (40-54); Hemoglobin 11.4 g/dL (13.0-16.5); Mean Corpuscular Volume 96.7 fL (80-94); Mean Platelet Vol. 10.7 fl (6.2-12.0); Platelet Count 182 K/mm3 (150-450); RBC Distribution Width CV 12.7 % (11.6-14.6); RBC Distribution Width SD 45.3 fl (35.1-43.9); Red Blood Count 3.68 M/mm3 (4.6-6.2); White Blood Count 8.6 K/mm3 (4.4-11.0)
[2024-02-05] MEDS: Carbidopa/Levodopa 25/100 Tablet PO ×2 (06:11→10:55)
--- NOTE | 2024-02-05 07:05 | PCM.PN.GU ---
Subjective Subjective s/p turp and circ stayed over weekend per request of family he can go to SNF. Objective Data Objective Data Vital Signs: Vital Signs Temp Pulse Resp BP Pulse Ox O2 Del Method 98.0 F 74 16 111/58 L 97 Room Air 02/05/24 03:00 02/05/24 03:00 02/05/24 03:00 02/05/24 03:00 02/05/24 03:00 02/05/24 03:00 Oxygen Delivery Method Room Air Weight: 63.6 kg Body Mass Index (BMI) 20.7 Intake & Output: Intake and Output for Last 24 Hours 02/03/24 02/04/24 02/05/24 23:59 23:59 23:59 Intake Total 4100.00 / 4450.00 590 / 840 400 / 400 Output Total 2100 / 2100 Balance 2000.00 / 2350.00 590 / 840 400 / 400 Lab / Micro Data 02/05/24 05:34 02/03/24 05:30 Labs: Laboratory Results - last 24 hr 02/05/24 05:34: WBC 8.6, RBC 3.68 L, Hgb 11.4 L, Hct 35.6 L, MCV 96.7 H, MCH 31.0, MCHC 32.0, RDW Std Deviation 45.3 H, RDW Coeff of Christie 12.7, Plt Count 182, MPV 10.7
--- NOTE | 2024-02-05 07:06 | PCM.TXEXTCAR ---
Diet Diet Order/Speech Therapy: 02/02/24 10:26 Diet: Regular - General Routine Orders/Code Status Enema Frequency: Daily PRN Suppository Frequency: Daily PRN Therapies Weight Bearing: Full weight bearing Allergies/Procedures Done in Hospital Allergies codeine Adverse Reaction (Verified 02/02/24 07:30) Nausea/Vom/Diarrhea Procedures: None Type of Care/Length of Stay Estimated LOS: Convalescent Care Less Than 30 days Type of Care Needed: Skilled Rehab Potential: Fair Prognosis: Fair Additional Orders/Day of Discharge Day of Discharge: 02/05/24 Follow Up Care Please Follow Up With: Trev Reed MD Discharge Plan Admission Admit Date/Time: 02/02/24 15:26 Primary Reason for Your Visit: circumcision, and TURP Attending Provider: Trev Reed Primary Care Provider: Pawel Myers Discharge Orders/Prescriptions Prescriptions: New ciprofloxacin HCl [Cipro] 500 mg tablet 500 mg PO BID Qty: 10 0RF Continued escitalopram oxalate [Lexapro] 20 mg tablet 10 mg PO DAILY donepezil [Aricept] 10 mg tablet 10 mg PO QHS carbidopa-levodopa 25MG-10 tablet extended release 1 tab PO TID atorvastatin 10 MG tablet 10 mg PO QHS cholecalciferol (vitamin D3) 1,000 UNIT tablet 5,000 unit PO DAILY acidophilus-pectin, citrus 1 TABLET tablet 1 tab PO DAILY 0RF multivitamin Tablet 1 tab PO DAILY metformin 500 mg tablet 500 mg PO BID tamsulosin 0.4 mg capsule 0.4 mg PO QHS Referrals / Follow Up: Trev Reed MD [Med Staff - Active Staff] - Pawel Myers MD [Primary Care Provider] - Disposition Discharge Orders: Discharge Patient (Routine); Ordered 02/05/24 Ordered By: Dr. Trev Reed
[2024-02-05 08:05] VITALS: BP 127/64; PULSE 79; RESP 16; TEMP 36.7; O2SAT 97
[2024-02-05] MEDS: Lactobacillis Acidophilus 1 CAP PO (08:15)
[2024-02-05] MEDS: Multivitamins,Therapeutic Tablet 1 TABLET PO (08:15)
[2024-02-05] MEDS: metFORMIN HCl 500 MG Tablet PO (08:15)
[2024-02-05] MEDS: Cholecalciferol (Vit D3) 125 MCG CAPSULE (5,000 UNITS) PO (08:16)
[2024-02-05] MEDS: Ciprofloxacin 500 MG Tablet PO (08:16)
[2024-02-05] MEDS: Escitalopram Oxalate 10 MG Tablet PO (08:16)
--- NOTE | 2024-02-05 08:49 | PHA.DC.MR.R ---
Pharmacy CT Med Reconciliation Pharmacy Service has performed discharge medication reconciliation for this patient upon transfer to SNF. The patient's discharge medication list was reviewed for discrepancies and discrepancies were resolved. Medications at Discharge Home Medications donepezil 10 mg tablet (Aricept) 10 mg PO QHS memory 06/26/18 escitalopram oxalate 20 mg tablet (Lexapro) 10 mg PO DAILY anxiety 06/26/18 atorvastatin 10 mg tablet 10 mg PO QHS cholesterol 08/26/19 carbidopa ER 25 mg-levodopa 100 mg tablet,extended release 1 tab PO TID parkinsons 08/26/19 cholecalciferol (vitamin D3) 25 mcg (1,000 unit) tablet 5,000 unit PO DAILY supplement 08/26/19 acidophilus 25 million cell-pectin, citrus 100 mg tablet 1 tab PO DAILY 09/11/19 multivitamin 1 tab PO DAILY 06/16/23 metformin 500 mg tablet 500 mg PO BID 01/18/24 tamsulosin 0.4 mg capsule 0.4 mg PO QHS 01/18/24 ciprofloxacin HCl 500 mg tablet (Cipro) 500 mg PO BID #10 tabs 02/02/24
[2024-02-05 09:53] VITALS: O2SAT 97
--- NOTE | 2024-02-05 10:00 | CASEMGMT ---
Social Work All discharge paperwork is completed for pt to go to [facility] today. SW completed the hospital exemption in the [email or web address] system. SW sent all discharge paperwork to [facility] via [employer]. NAM set up a 1pm ambulance w[facility]. SW let pt, pt's , [facility], and pt's RN know pickup time. NAM also left pt's niece Meg(who is POA) a message letting her know pt is going to [facility] today. No further needs, pt to [facility] today, skilled. LEOBARDO Lee
--- NOTE | 2024-02-05 12:05 | NURSING ---
Nurse to nurse report given to Kiran from [facility].
--- NOTE | 2024-02-06 07:49 | DS.PCM_ITS ---
Providers Date of Admission: 02/02/24 Date of Discharge: 02/05/24 Primary Care Physician: Dr. Pawel Myers MD Reason For Visit: TURP Diagnosis Discharge Diagnosis (1) BPH with obstruction/lower urinary tract symptoms: Status: Acute Code(s): N40.1 - Benign prostatic hyperplasia with lower urinary tract symptoms; N13.8 - Other obstructive and reflux uropathy Plan TURP Medications at Discharge Home Medications donepezil 10 mg tablet (Aricept) 10 mg PO QHS memory 06/26/18 escitalopram oxalate 20 mg tablet (Lexapro) 10 mg PO DAILY anxiety 06/26/18 atorvastatin 10 mg tablet 10 mg PO QHS cholesterol 08/26/19 carbidopa ER 25 mg-levodopa 100 mg tablet,extended release 1 tab PO TID parkinsons 08/26/19 cholecalciferol (vitamin D3) 25 mcg (1,000 unit) tablet 5,000 unit PO DAILY supplement 08/26/19 acidophilus 25 million cell-pectin, citrus 100 mg tablet 1 tab PO DAILY 09/11/19 multivitamin 1 tab PO DAILY 06/16/23 metformin 500 mg tablet 500 mg PO BID 01/18/24 tamsulosin 0.4 mg capsule 0.4 mg PO QHS 01/18/24 ciprofloxacin HCl 500 mg tablet (Cipro) 500 mg PO BID #10 tabs 02/02/24 Hospital Course Summary of Care Provided Minutes Spent on Discharge: 10 Hospital Course: patient underwent a transurethral resection of the prostate for obstruction weakness in the ability the family has to keep in the hospital significant transfer to acute-care postop so he skipped over the weekend and you just discharged on Monday to long-term facility for rehab. Physical Exam Const alert and oriented x3 General Appearance: cooperative HEENT normocephalic and head/scalp atraumatic Eyes PERRL and EOMs intact bilaterally Neck supple, no JVD and no carotid bruits Resp normal respiratory effort, normal air movement and clear to auscultation bilaterally Cardio regular rate and no murmurs GI normal to inspection, nondistended, normoactive bowel sounds and soft to palpation Extremity normal capillary refill General Extremity: no tenderness to palpation of joints or extremities; Negative for edema Skin no rashes or lesions noted and no wounds General Skin Exam: no breakdown Neuro CN's II-XII intact bilaterally Psych affect normal Appearance: appropriate Weight / BMI Weight Weight: 63.6 kg Body Mass Index (BMI) 20.7 ABG / Lab / Microbiology Data 02/05/24 05:34 02/03/24 05:30 D/C Instructions Discharge Diet: No restrictions Discharge Activity: Return to Normal Activity and May Not Drive (while taking narcotic pain medications.) Call your doctor if you observe: Fever of 101 or Higher Please Follow Up With: Trev Reed MD When: Call [phone] for an appointment Meaningful Use Info Meaningful Use Meaningful Use Diagnoses (Choose all that apply): None applicable Ischemic Stroke Statin Dosing Therapy Reference: STATIN DOSE THERAPY REFERENCE: * Patients > 75 years receive moderate or high dose statin therapy. * Patients 75 years or YOUNGER should receive HIGH intensity statin dose unless contraindicated. You will be required to document reason for non-treatment if statin daily dose does not meet guidelines. HIGH DOSE STATIN THERAPY DAILY Atorvastatin > than or = to 40 mg Rosuvastatin > than or = to 20 mg Amlodipine + Atorvastatin > than or = to 2.5/40 mg Ezetimibe + Simvastatin 10/80 mg Simvastatin 80mg Discharge Plan Admission Admit Date/Time: 02/02/24 15:26 Primary Reason for Your Visit: circumcision, and TURP Attending Provider: Trev Reed Primary Care Provider: Pawel Myers Discharge Orders/Prescriptions Prescriptions: New ciprofloxacin HCl [Cipro] 500 mg tablet 500 mg PO BID Qty: 10 0RF Continued escitalopram oxalate [Lexapro] 20 mg tablet 10 mg PO DAILY donepezil [Aricept] 10 mg tablet 10 mg PO QHS carbidopa-levodopa 25MG-10 tablet extended release 1 tab PO TID atorvastatin 10 MG tablet 10 mg PO QHS cholecalciferol (vitamin D3) 1,000 UNIT tablet 5,000 unit PO DAILY acidophilus-pectin, citrus 1 TABLET tablet 1 tab PO DAILY 0RF multivitamin Tablet 1 tab PO DAILY metformin 500 mg tablet 500 mg PO BID tamsulosin 0.4 mg capsule 0.4 mg PO QHS Referrals / Follow Up: Trev Reed MD [Med Staff - Active Staff] - Pawel Myers MD [Primary Care Provider] - Disposition Disposition (needs filled in before D/C Order can be placed): Assisted Facility
== END 2024-02-05 13:15 | disposition skilled nursing facility (03) | DRG 713 ==
LOC: SDC 15:42 → MS3 15:42
PROVIDERS: Anesthesiology; Admitting Provider Urology; PCP Family Medicine; Referring Provider Urology; Visit Provider Urology
PROC: 0VT08ZZ Resection of Prostate, Via Natural or Artificial Opening Endoscopic (ICD-10-PCS; principal; 2024-02-02 09:00)
DX: N40.1 Benign prostatic hyperplasia with lower urinary tract symptoms (principal); N13.8 Other obstructive and reflux uropathy; E11.9 Type 2 diabetes mellitus without complications; I10 Essential (primary) hypertension; E78.00 Pure hypercholesterolemia, unspecified; Z87.891 Personal history of nicotine dependence; Z79.84 Long term (current) use of oral hypoglycemic drugs; N47.1 Phimosis; N21.0 Calculus in bladder
CPT/HCPCS: 36415; 80048; 82962; 83036; 85027; 88305; 93005; 94668; 97162; 97166; 97530; 97535; J7030; J7120; A4216; J0744; J2405

== ENCOUNTER 2024-02-07 12:11 | Inpatient (IN) | payer MEDICARE, OTHER, MEDICAID, SELFPAY ==
[2024-02-07] VITALS (42 sets, daily range): BP systolic 76–200; BP diastolic 55–111; PULSE 76–138; RESP 14–26; TEMP 35.1–36.9; O2SAT 79–100; BMI 21.1; BMI 21.2
[2024-02-07] MEDS: Ondansetron 4 MG/2 ML Vial IV (12:35)
[2024-02-07] MEDS: Rocuronium Bromide 50 MG/5 ML Vial 100 MG IV (12:37)
[2024-02-07] MEDS: Etomidate 20 MG/10 ML Vial IV (12:37)
--- NOTE | 2024-02-07 12:49 | EKG12_ITS ---
Test Reason : Blood Pressure : / mmHG Vent. Rate : 094 BPM Atrial Rate : 094 BPM P-R Int : 178 ms QRS Dur : 076 ms QT Int : 358 ms P-R-T Axes : 063 049 066 degrees QTc Int : 447 ms Normal sinus rhythm Nonspecific ST and T wave abnormality Abnormal ECG Confirmed by Scott Humphrey ([id number]), news editor LASHELL SUAZO ([id number]) on 02/09/2024 7:23:39 AM Referred By: Charna Confirmed By:Scott Humphrey
--- NOTE | 2024-02-07 12:50 | ED.RN ---
UNABLE TO PLACE OG/NG WITH 3 ATTEMPTS, NOTIFIED
[2024-02-07] MEDS: Propofol 10MG/Ml 1,000 MG/100 ML Bottle 3.9 MG CONT INF (12:55)
[2024-02-07] MEDS: 0.9% Normal Saline (500mL Bag) 500 ML 1000 ML IV (12:56)
[2024-02-07 12:57] LABS: Mucous, Urine 0 SEEN /hpf (<or=2+)
[2024-02-07 13:00] LABS: Color, Urine Yellow (Yellow); Glucose, Dipstick 1000 mg/dl (Normal); Ketone-Dipstick 5 mg/dl (Negative); Leukocyte Esterase-Dipstick 100 /ul (Negative); Nitrite-Dipstick Negative (Negative); Occult Blood-Urine 250 /ul (Negative); Protein-Dipstick 100 mg/dl (Negative); Urine Bilirubin Dipstick Negative (Negative); Urine Clarity Cloudy (Clear); Urine Urobilinogen Normal (Normal)
[2024-02-07 13:06] LABS: Bacteria RARE /hpf (None Seen); Red Blood Cells-Urine 50-100 SEEN /hpf (0-5); Squamous Epithelial Cells - UA 0-5 SEEN /hpf (0-5); White Blood Cells 10-25 SEEN /hpf (0-5)
--- NOTE | 2024-02-07 13:07 | ED.RN ---
UNSUCCESSFUL 4TH ATT[address]ACE OG WITH ASSISTANCE OF
--- NOTE | 2024-02-07 13:09 | RAD_ITS ---
STUDY: X-RAY CHEST REASON FOR EXAM: Male, 78 years old. Intubation, aspirated FB TECHNIQUE: Single AP portable view of the chest. COMPARISON: Comparison is made with prior study dated October 29, 2014. FINDINGS: An endotracheal tube has been placed. The tip is just proximal to the ayanna. It should be pulled back approximately 2 cm. Increased markings are seen at both lung bases suggestive of bibasilar atelectasis and/or early infiltrates. There is no demonstrated pleural abnormality. Normal size heart. Normal mediastinum and lalo. Normal visualized pulmonary arteries. There is atherosclerotic calcification of the aortic arch with tortuosity. There are diffuse degenerative changes of the visualized thoracic spine. Normal visualized ribs, clavicles, and shoulders. Surgical clips are seen in the epigastric region. RAD/Chest 1 View (Portable) IMPRESSION: The tip of the endotracheal tube is just proximal to the ayanna. It should be withdrawn approximately 2 cm. Increased markings at the lung bases suggestive of atelectasis and/or early infiltrates. No radiopaque foreign body is seen. Electronically Signed: Alcon Quinn MD at 13:21 EDT ,
--- NOTE | 2024-02-07 13:21 | CT_ITS ---
STUDY: CT CHEST WITHOUT CONTRAST REASON FOR EXAM: Male, 78 years old. Aspirated or swallowed FB RADIATION DOSAGE (If Supplied By Facility): CTDIvol = ( 6.87 ) mGy, DLP = ( 247.75 ) mGycm TECHNIQUE: Transaxial imaging was performed without the administration of intravenous contrast material. Multiplanar coronal and sagittal images were reformatted. Individualized dose optimization techniques were used for this CT. COMPARISON: Comparison is made with prior chest radiograph done earlier today. FINDINGS: CHEST An endotracheal tube is seen. Patchy infiltrate in the posterior aspect of the right upper lobe abutting the right minor fissure. Infiltrates are seen in the lower lobes superimposed on chronic scarring. No radiopaque foreign body is seen. There is no demonstrated pleural abnormality. There are calcifications of the coronary arteries. There are small lymph nodes within the mediastinum, which are normal in size and morphology most compatible with reactive lymph hyperplasia. Normal hilar regions. Normal unenhanced pulmonary arteries. There is atherosclerotic calcification of the aortic arch with tortuosity and elongation of the aortic arch and descending thoracic aorta. Normal osseous structures. There is no demonstrated abnormality of the visualized upper abdomen. CT/Chest without Contrast IMPRESSION: No radiopaque foreign body is seen. Infiltrates in the posterior aspect of the right upper lobe as well as in both lower lobes superimposed on chronic scarring. Electronically Signed: Alcon Quinn MD at 14:14 EDT ,
[2024-02-07] MEDS: Ampicillin/Sulbactam 3 GM in 0.9% Normal Saline (100mL MB+) 100 ML IV ×3 (13:56→23:08)
[2024-02-07 14:32] LABS: ALB/GLOB Ratio 0.9 RATIO (0.9-2.4); AST(SGOT) 16 U/L (15-37); Alanine Aminotransfer ALT/SGPT 16 U/L (16-61); Albumin, Serum 3.8 g/dL (3.2-5.0); Alkaline Phosphatase 123 U/L (45-117); Anion Gap 2 (5-15); BUN 22 mg/dL (7-18); BUN/Creat Ratio 20.4 RATIO (10-20); Calcium,Total 10.5 mg/dL (8.5-10.1); Chloride 100 mmol/L (98-107); Creatinine, Serum 1.08 mg/dL (0.70-1.30); EST Glomerular Filtration Rate 70 mL/min (>60); Est Glom Filt Rate - Afr Amer 85 mL/min (>60); Estimated Creatinine Clearance 52.58 ml/min; Globulin 4.1 g/dL (2.2-4.2); Glucose 233 mg/dL (74-106); Potassium 4.1 mmol/L (3.5-5.1); Protein, Total 7.9 g/dL (6.4-8.2); Sodium Level 134 mmol/L (136-145); Troponin-I HS 4 pg/mL (3.0-78.0)
[2024-02-07 14:33] LABS: Allen Test Positive; Base Excess -1 mmol/L (-2 to +2); Bicarbonate 23.1 mmol/L (22-26); Blood Gas Specimen Type ART; Mode AC; O2 Delivery Device ET Tube; PEEP 5; PO2 320 mmHG (75-100); RR 14; SITE R Radial; SO2 100 % (95-99); Time Given 14:29:26; Total Carbon Dioxide 24 mmol/L; pCO2 32.7 mmHg (35-45); pH 7.46 (7.35-7.45)
--- NOTE | 2024-02-07 14:46 | EDS_ITS ---
HPI History of Present Illness Chief Complaint: Foreign Body [facility] Medical History (Updated 02/06/24 @ 07:[address] Trev Reed MD) Walker as ambulation aid Prostate disease Anemia Back pain Shortness of breath on exertion History of edema Wears dentures Wears glasses Diabetes High cholesterol History of diverticulitis Former smoker Anxiety Depression History of dementia Parkinsons disease Callus of foot Diarrhea Diabetes mellitus type 2 in nonobese Hypertension Home Medications ?Medication ?Instructions ?Recorded ?Last Taken ?Type donepezil 10 mg tablet (Aricept) 10 mg PO QHS memory 06/26/18 02/01/24 History atorvastatin 10 mg tablet 10 mg PO QHS cholesterol 08/26/19 02/01/24 History carbidopa ER 25 mg-levodopa 100 mg 1 tab PO TID parkinsons 08/26/19 02/02/24 History tablet,extended release cholecalciferol (vitamin D3) 25 5,000 unit PO DAILY supplement 08/26/19 06/22/23 History mcg (1,000 unit) tablet acidophilus 25 million 1 tab PO DAILY 09/11/19 02/01/24 Rx cell-pectin, citrus 100 mg tablet multivitamin 1 tab PO DAILY 06/16/23 02/01/24 History metformin 500 mg tablet 500 mg PO BID 01/18/24 02/01/24 History tamsulosin 0.4 mg capsule 0.4 mg PO QHS 01/18/24 02/01/24 History ciprofloxacin HCl 500 mg tablet 500 mg PO BID #10 tabs 02/02/24 Unknown Rx (Cipro) bisacodyl 10 mg rectal suppository 10 mg [place] DAILY PRN constipation 02/07/24 Unknown History escitalopram oxalate 20 mg tablet 20 mg PO DAILY 02/07/24 Unknown History magnesium hydroxide 400 mg/5 mL 30 ml PO DAILY PRN constipation 02/07/24 Unknown History oral suspension (Dulcolax (magnesium hydroxide)) Allergy/AdvReac Type Severity Reaction Status Date / Time codeine AdvReac Nausea/Vom/ Verified 02/02/24 07:30 Diarrhea Family History Father Hypertension Heart disease Surgical History (Updated 01/18/24 @ 13:28 by Orly Patel) Hx of foot surgery Hx of colonoscopy s/p stomach surgery Social History Smoking Status: Former smoker alcohol intake: never EXAM Physical Exam Const Vital Signs: 02/07/24 12:12 02/07/24 12:16 02/07/24 12:24 Temperature 95.1 F L Temperature Source Temporal Pulse Rate 76 76 Respiratory Rate 18 17 Respiratory Effort Normal Non-Labored Respiratory Depth Respiratory Pattern Normal Blood Pressure 129/74 H Blood Pressure Mean 92 Pulse Ox 90 79 Oxygen Delivery Method Nasal Cannula Venturi Mask Oxygen Flow Rate (L/min) 6 12 Fraction of Inspired Oxygen (FIO2) 02/07/24 12:30 02/07/24 12:36 02/07/24 12:44 Temperature Temperature Source Pulse Rate 78 109 H Respiratory Rate 18 15 Respiratory Effort Labored Respiratory Depth Normal Respiratory Pattern Normal Blood Pressure 123/74 H 192/103 H Blood Pressure Mean 90 132 Pulse Ox 90 98 Oxygen Delivery Method Venturi Mask Mechanical Ventilator Oxygen Flow Rate (L/min) 12 Fraction of Inspired Oxygen (FIO2) 02/07/24 12:50 02/07/24 12:59 02/07/24 13:11 Temperature Temperature Source Pulse Rate 96 93 Respiratory Rate 14 14 18 Respiratory Effort Respiratory Depth Respiratory Pattern Normal Blood Pressure 183/92 H 186/100 H Blood Pressure Mean 122 128 Pulse Ox 97 98 100 Oxygen Delivery Method Mechanical Ventilator Mechanical Ventilator Oxygen Flow Rate (L/min) Fraction of Inspired Oxygen (FIO2) 100 02/07/24 13:15 02/07/24 13:23 02/07/24 13:30 Temperature Temperature Source Pulse Rate 103 H 96 95 Respiratory Rate 14 14 14 Respiratory Effort Respiratory Depth Respiratory Pattern Blood Pressure 186/100 H 181/111 H 175/91 H Blood Pressure Mean 123 131 116 Pulse Ox 100 100 100 Oxygen Delivery Method Oxygen Flow Rate (L/min) Fraction of Inspired Oxygen (FIO2) 02/07/24 13:45 02/07/24 14:00 02/07/24 14:00 Temperature Temperature Source Pulse Rate 93 92 Respiratory Rate 20 H 19 H Respiratory Effort Respiratory Depth Respiratory Pattern Blood Pressure 156/94 H 200/99 H 200/99 H Blood Pressure Mean 111 132 127 Pulse Ox 100 100 Oxygen Delivery Method Mechanical Ventilator Oxygen Flow Rate (L/min) Fraction of Inspired Oxygen (FIO2) 02/07/24 14:15 02/07/24 14:30 02/07/24 14:32 Temperature Temperature Source Pulse Rate 80 77 79 Respiratory Rate 17 14 20 H Respiratory Effort Respiratory Depth Respiratory Pattern Blood Pressure 161/91 H 165/90 H 155/87 H Blood Pressure Mean 111 112 106 Pulse Ox 100 100 Oxygen Delivery Method Oxygen Flow Rate (L/min) Fraction of Inspired Oxygen (FIO2) 02/07/24 14:45 02/07/24 14:57 02/07/24 15:00 Temperature Temperature Source Pulse Rate 84 77 76 Respiratory Rate 15 20 H 17 Respiratory Effort Respiratory Depth Respiratory Pattern Blood Pressure 136/81 H 127/78 H 117/72 Blood Pressure Mean 98 93 87 Pulse Ox 98 98 99 Oxygen Delivery Method Mechanical Ventilator Oxygen Flow Rate (L/min) Fraction of Inspired Oxygen (FIO2) 02/07/24 15:00 02/07/24 15:15 02/07/24 15:30 Temperature Temperature Source Pulse Rate 80 77 78 Respiratory Rate 17 16 17 Respiratory Effort Respiratory Depth Respiratory Pattern Blood Pressure 117/72 116/73 115/67 Blood Pressure Mean 87 87 81 Pulse Ox 98 99 99 Oxygen Delivery Method Mechanical Ventilator Mechanical Ventilator Mechanical Ventilator Oxygen Flow Rate (L/min) Fraction of Inspired Oxygen (FIO2) 02/07/24 15:45 Temperature 98.3 F Temperature Source Pulse Rate 76 Respiratory Rate 16 Respiratory Effort Respiratory Depth Respiratory Pattern Blood Pressure 110/69 Blood Pressure Mean 82 Pulse Ox 98 Oxygen Delivery Method Oxygen Flow Rate (L/min) Fraction of Inspired Oxygen (FIO2) [facility] MDM MDM Narrative Medical decision making narrative: HISTORY OF PRESENT ILLNESS: 78-year-old male presents with concern for foreign body aspiration. He is accompanied by his and [id number]. They state he was eating pork chops for lunch. They noted all of a sudden became distressed, choking, drooling. They were concerned so called EMS. On arrival the patient does not provide a lot of history secondary to history of dementia and Parkinson disease. REVIEW OF SYSTEMS: Unable to obtain a reliable review of system secondary to history of dementia and Parkinson's disease PHYSICAL EXAM: Nursing triage notes reviewed, Vital signs reviewed Constitutional: please see mdm HENT: MMM Eyes: Pupils equal round and reactive to light, Extraocular muscles intact Neck: No stridor, no JVD, full neck ROM Lungs: Clear to auscultation, No wheezing or rales. No increased work of breathing, no conversational dyspnea, no accessory muscle use, no nasal flaring. No respiratory distress noted Heart: Regular rate and rhythm, No murmurs, No rubs and No gallops, 2+ distal pulses (radial, femoral, posterior tibial) in all extremities Abdomen: Soft, there is no tenderness, rigidity, rebound or guarding, no obvious peritoneal signs, no palpable pulsatile abdominal masses, no auscultated abdominal bruit : No CVAT Extremities: No edema Neuro: No focal neurological deficits, cranial nerves II through XII intact, 5/5 strength in all extremities. Intact sensation to light touch in all extremities, 2+ reflexes bilateral patella tendons. Normal gait. No ataxia. Skin: No rash or lesions noted MEDICAL DECISION MAKING: Chief Complaint: Foreign body aspiration External records reviewed: [Imaging studies reviewed: No Recent [place] imaging Factors affecting care: Dementia, type 2 diabetes, Parkinson's disease, hyperlipidemia, BPH Social determinants of health: n snf resident History obtained from others: EMS, family Consults: ICU, critical care, gastroenterology (Dr. Omalley), Radiology (DR. Quinn) Goals of care discussion: CODE STATUS full code. [facility] Narrative: Patient was initially hemodynamically stable he was hypoxic to 79% on nasal cannula (6 L). Patient was immediately assessed. His initial exam was concerning for acute respiratory failure. He was gurgling he was hypoxic he was in distress he had increased work of breathing. My initial impression was that the patient had a tracheal foreign body. Given the easy reversible nature of the patient's likely pathology and initial hypoxia and need for emergent airway management I did have a goals of care discussion with the family. Patient's snf paperwork noted he was remarkable for a CODE STATUS of DNR CC. In the presence of the patient's , [id number], power of email campaign specialist they agreed to change patient's CODE STATUS to full code to allow for intubation and likely intervention such as EGD or bronchoscopy. IVs were placed, monitor attached. Preparations were made for delayed sequence intubation to assess the patient's posterior oropharynx by direct laryngoscopy. Patient was given etomidate (20 mg) for sedation. At this point the airway was observed through direct laryngoscopy via glide scope. There is no obvious f oreign body noted in the larynx or obvious foreign body in the trachea. Given hypoxia and no obvious foreign body decision was made to intubate the patient. He was given rocuronium and intubated without issue. Please see below procedure note. After patient is intubated we had difficulty passing the OG tube. Upon repeat laryngoscopy we saw evidence of food material in the esophagus. Patient's x-ray showed evidence of bilateral infiltrates concerning for aspiration pneumonia. Obtained a CT scan at this time to further characterize if the patient had a esophageal versus tracheal foreign body. CT scan of the chest showed no evidence of obvious tracheal foreign body or signs of postobstructive atelectasis that would be consistent with tracheal foreign body. CT scan was reviewed by the radiologist Dr. Quinn who noted large material in the distal esophagus consistent with esophageal food impaction. I considered the following differential diagnosis: Tracheal esophageal foreign b ankita, aspiration pneumonia ALL IMAGES (IF OBTAINED) HAVE BEEN PERSONALLY REVIEWED AND INTERPRETED BY MYSELF. Chest x-ray was read reviewed myself shows evidence of bilateral infiltrates concerning for aspiration pneumonia, appropriate ET tube placement EKG with normal sinus rhythm, normal axis, no intervals, no STEMI CBC without evidence leukocytosis, anemia or thrombocytopenia ABG with signs of hyperoxia decrease patient's FiO2 BMP without significant electrolyte disturbances, no evidence of endorgan hypoperfusion, metabolic acidosis, PETER LFTs show no evidence of hepatobiliary pathology. Urinalysis shows no evidence of urinary inflammation suggestive of UTI CT scan of the chest noncontrast read reviewed myself shows evidence of bilateral pulmonary infiltrates, no evidence of postobstructive atelectasis. Noted tissue density in esophagus consistent with likely esophageal foreign body. Given signs of aspiration gave prophylactic antimicrobial therapy sent fo sputum culture. I then consulted gastroenterology Dr. Omalley. AFter discussion with the GI doctor Dr. Omalley. Decision was made to keep the patient had [facility] to undergo emergent EGD for removal of esophageal foreign body Discussed the case with hospitalist Dr. Ptael who agreed to meet the patient in the ICU. Discussed with bed management as well. The patient and/or family, caregivers express understanding. The patient and/or family, caregivers agrees with the plan. The procedure was performed by myself. Indications: Hypoxia, expected clinical course Procedure Description: Patient was preoxygenated with nonrebreather, use direct laryngoscopy via video laryngoscope. Patient was in the supine position. Used 8.0 tube at the recommendation of the tube through the cords. Grade 1 view of the cords. There is no immediate complications intubation was achieved on first attempt. Post-Procedure Assessment: Tracheal intubation was confirmed with breath sounds auscultated equally bilaterally appropriate color change with end tidal CO2 detector and waveform capnography. The patient tolerated the procedure well with no immediate complications. Shared decision making: I will have a discussion with the patient and or visitors regarding risk/benefits of further testing or admission. They will be made aware of of the risk/benefits inherent in this decision they will be given the opportunity to voice understanding. Total critical care time today provided was at least 60 minutes. This excludes separately billable procedures. Critical care time (if documented) is secondary to the patient having high probability of clinically significant/life threatening deterioration in the patient's condition which required my urgent intervention. Impression: 1. Esophageal foreign body 2. Aspiration Pneumonia 3. Acute hypoxic respiratory failure Dispo: admit This note was generated with Tessella dictation software. It may contain incorrect words, spelling, and punctuation that were not noted in review of the chart prior to signing. Lab Data Labs: Laboratory Results - last 24 hr 02/07/24 02/07/24 12:25 12:50 Sodium 134 L Potassium 4.1 Chloride 100 Carbon Dioxide 32.0 Anion Gap 2 L BUN 22 H Creatinine 1.08 Estim Creat Clear Calc 52.58 Est GFR (MDRD) Af Amer 85 Est GFR (MDRD) Non-Af 70 BUN/Creatinine Ratio 20.4 H Glucose 233 H Calcium 10.5 H Total Bilirubin 0.50 AST 16 ALT 16 Alkaline Phosphatase 123 H Troponin I High Sens 4 Total Protein 7.9 Albumin 3.8 Globulin 4.1 Albumin/Globulin Ratio 0.9 Urine Color Yellow Urine Clarity Cloudy Urine pH 6.0 Ur Specific [place] 1.020 Urine Protein 100 H Urine Glucose (UA) 1000 H Urine Ketones 5 H Urine Occult Blood 250 H Urine Nitrite Negative Urine Bilirubin Negative Urine Urobilinogen Normal Ur Leukocyte Esterase 100 H Urine RBC 50-100 SEEN Urine WBC 10-25 SEEN Ur Squamous Epith Cells 0-5 SEEN Urine Bacteria RARE Urine Mucus 0 SEEN ABG Data ABG results: ABG 02/07/24 14:26 Specimen Type ART Sample Site R Radial pH 7.46 H Bicarbonate Actual 23.1 Total CO2 24 Base Excess -1 O2 Saturation 100 H O2 % 100.0 ABG pCO2 32.7 L ABG pO2 320 H* Alireza Test Positive Respiration Rate 14 O2 Delivery Device ET Tube Vent Mode AC Tidal Volume 450.0 POC PEEP 5 Crit Call To/Read Back Yes Blood Gas Notified Whom AR Blood Gas Notified Time 14:29:26 Radiography Diagnostic Testing: Clinical Impression(s) from Imaging Studies Chest X-Ray 02/07/24 13:09 IMPRESSION: The tip of the endotracheal tube is just proximal to the ayanna. It should be withdrawn approximately 2 cm. Increased markings at the lung bases suggestive of atelectasis and/or early infiltrates. No radiopaque foreign body is seen. Electronically Signed: Alcon Quinn MD at 13:21 EDT , Chest CT 02/07/24 13:21 IMPRESSION: No radiopaque foreign body is seen. Infiltrates in the posterior aspect of the right upper lobe as well as in both lower lobes superimposed on chronic scarring. Electronically Signed: Alcon Quinn MD at 14:14 EDT , ADDENDUM: 02/07/24 1445 IMPRESSION: undefined Discharge Plan Triage Chief Complaint: Foreign Body ED Provider: Jc Farrar Dx/Rx/DC Orders Primary Care Provider: Pawel Myers
[2024-02-07] MEDS: fentaNYL drip 100 ML 5 MCG CONT INF (15:40)
--- NOTE | 2024-02-07 15:58 | PCM.HP.STD ---
HPI - General General Date of Admission: 02/07/24 Date of Service: 02/07/24 Chief Complaint: Foreign body esophageal food impaction HPI Narrative JODIE AMAYA, is a 78 M with history of Parkinson's disease, type 2 diabetes mellitus on insulin and metformin, dementia, generalized weakness, hypertension, was brought to the ED with concerns regarding food aspiration/impaction while eating a piece of pork stirfry this morning. He was accompanied by his and [id number], while eating lunch they noted that he became suddenly distressed and started choking and drooling. EMS was called for the same and he was brought to the hospital. While evaluation in the ED was also hypoxic and there were concerns regarding tracheal aspiration. Due to this he underwent rapid sequence intubation and evaluation. No food bolus was noted using the laryngoscope. On CT imaging there are concerns regarding an esophageal food bolus. Gastroenterology has been consulted from the ED and they plan to do an urgent upper endoscopy for disimpaction today. Given his intubation and mechanical ventilation, he has been transferred to the ICU for further monitoring and management. [facility] Medical History (Updated 02/06/24 @ 07:[address] Trev Reed MD) Walker as ambulation aid Prostate disease Anemia Back pain Shortness of breath on exertion History of edema Wears dentures Wears glasses Diabetes High cholesterol History of diverticulitis Former smoker Anxiety Depression History of dementia Parkinsons disease Callus of foot Diarrhea Diabetes mellitus type 2 in nonobese Hypertension Home Medications ?Medication ?Instructions ?Recorded ?Last Taken ?Type donepezil 10 mg tablet (Aricept) 10 mg PO QHS memory 06/26/18 02/01/24 History atorvastatin 10 mg tablet 10 mg PO QHS cholesterol 08/26/19 02/01/24 History carbidopa ER 25 mg-levodopa 100 mg 1 tab PO TID parkinsons 08/26/19 02/02/24 History tablet,extended release cholecalciferol (vitamin D3) 25 5,000 unit PO DAILY supplement 08/26/19 06/22/23 History mcg (1,000 unit) tablet acidophilus 25 million 1 tab PO DAILY 09/11/19 02/01/24 Rx cell-pectin, citrus 100 mg tablet multivitamin 1 tab PO DAILY 06/16/23 02/01/24 History metformin 500 mg tablet 500 mg PO BID 01/18/24 02/01/24 History tamsulosin 0.4 mg capsule 0.4 mg PO QHS 01/18/24 02/01/24 History ciprofloxacin HCl 500 mg tablet 500 mg PO BID #10 tabs 02/02/24 Unknown Rx (Cipro) bisacodyl 10 mg rectal suppository 10 mg [place] DAILY PRN constipation 02/07/24 Unknown History escitalopram oxalate 20 mg tablet 20 mg PO DAILY 02/07/24 Unknown History magnesium hydroxide 400 mg/5 mL 30 ml PO DAILY PRN constipation 02/07/24 Unknown History oral suspension (Dulcolax (magnesium hydroxide)) Allergy/AdvReac Type Severity Reaction Status Date / Time codeine AdvReac Nausea/Vom/ Verified 02/02/24 07:30 Diarrhea Family History Father Hypertension Heart disease Surgical History (Updated 01/18/24 @ 13:28 by Orly Patel) Hx of foot surgery Hx of colonoscopy s/p stomach surgery Social History Smoking Status: Former smoker alcohol intake: never ROS Review of Systems ROS Unobtainable: due to endotracheal tube; Denies due to encephalopathy, due to mental condition, due to mental status or other Vital Signs Vital Signs Vital Signs: 02/07/24 12:12 02/07/24 12:16 02/07/24 12:24 Temperature 95.1 F L Temperature Source Temporal Pulse Rate 76 76 Respiratory Rate 18 17 Respiratory Effort Normal Non-Labored Respiratory Depth Respiratory Pattern Normal Blood Pressure 129/74 H Blood Pressure Mean 92 Pulse Ox 90 79 Oxygen Delivery Method Nasal Cannula Venturi Mask Oxygen Flow Rate (L/min) 6 12 Fraction of Inspired Oxygen (FIO2) 02/07/24 12:30 02/07/24 12:36 02/07/24 12:44 Temperature Temperature Source Pulse Rate 78 109 H Respiratory Rate 18 15 Respiratory Effort Labored Respiratory Depth Normal Respiratory Pattern Normal Blood Pressure 123/74 H 192/103 H Blood Pressure Mean 90 132 Pulse Ox 90 98 Oxygen Delivery Method Venturi Mask Mechanical Ventilator Oxygen Flow Rate (L/min) 12 Fraction of Inspired Oxygen (FIO2) 02/07/24 12:50 02/07/24 12:59 02/07/24 13:11 Temperature Temperature Source Pulse Rate 96 93 Respiratory Rate 14 14 18 Respiratory Effort Respiratory Depth Respiratory Pattern Normal Blood Pressure 183/92 H 186/100 H Blood Pressure Mean 122 128 Pulse Ox 97 98 100 Oxygen Delivery Method Mechanical Ventilator Mechanical Ventilator Oxygen Flow Rate (L/min) Fraction of Inspired Oxygen (FIO2) 100 02/07/24 13:15 02/07/24 13:23 02/07/24 13:30 Temperature Temperature Source Pulse Rate 103 H 96 95 Respiratory Rate 14 14 14 Respiratory Effort Respiratory Depth Respiratory Pattern Blood Pressure 186/100 H 181/111 H 175/91 H Blood Pressure Mean 123 131 116 Pulse Ox 100 100 100 Oxygen Delivery Method Oxygen Flow Rate (L/min) Fraction of Inspired Oxygen (FIO2) 02/07/24 13:45 02/07/24 14:00 02/07/24 14:00 Temperature Temperature Source Pulse Rate 93 92 Respiratory Rate 20 H 19 H Respiratory Effort Respiratory Depth Respiratory Pattern Blood Pressure 156/94 H 200/99 H 200/99 H Blood Pressure Mean 111 132 127 Pulse Ox 100 100 Oxygen Delivery Method Mechanical Ventilator Oxygen Flow Rate (L/min) Fraction of Inspired Oxygen (FIO2) 02/07/24 14:15 02/07/24 14:30 02/07/24 14:32 Temperature Temperature Source Pulse Rate 80 77 79 Respiratory Rate 17 14 20 H Respiratory Effort Respiratory Depth Respiratory Pattern Blood Pressure 161/91 H 165/90 H 155/87 H Blood Pressure Mean 111 112 106 Pulse Ox 100 100 Oxygen Delivery Method Oxygen Flow Rate (L/min) Fraction of Inspired Oxygen (FIO2) 02/07/24 14:45 02/07/24 14:57 02/07/24 15:00 Temperature Temperature Source Pulse Rate 84 77 76 Respiratory Rate 15 20 H 17 Respiratory Effort Respiratory Depth Respiratory Pattern Blood Pressure 136/81 H 127/78 H 117/72 Blood Pressure Mean 98 93 87 Pulse Ox 98 98 99 Oxygen Delivery Method Mechanical Ventilator Oxygen Flow Rate (L/min) Fraction of Inspired Oxygen (FIO2) 02/07/24 15:00 02/07/24 15:15 02/07/24 15:30 Temperature Temperature Source Pulse Rate 80 77 78 Respiratory Rate 17 16 17 Respiratory Effort Respiratory Depth Respiratory Pattern Blood Pressure 117/72 116/73 115/67 Blood Pressure Mean 87 87 81 Pulse Ox 98 99 99 Oxygen Delivery Method Mechanical Ventilator Mechanical Ventilator Mechanical Ventilator Oxygen Flow Rate (L/min) Fraction of Inspired Oxygen (FIO2) 02/07/24 15:45 02/07/24 15:50 Temperature 98.3 F Temperature Source Pulse Rate 76 Respiratory Rate 16 14 Respiratory Effort Respiratory Depth Respiratory Pattern Normal Blood Pressure 110/69 Blood Pressure Mean 82 Pulse Ox 98 99 Oxygen Delivery Method Oxygen Flow Rate (L/min) Fraction of Inspired Oxygen (FIO2) Weight Weight: 143 lb 1.28 oz Body Mass Index (BMI) 21.1 Physical Exam Const Constitutional Narrative: Intubated, sedated Resp normal respiratory effort Resp Narrative: Mechanically ventilated on sedation Cardio regular rate and regular rhythm Extremity normal to inspection Neuro Neuro Narrative: , On sedation Results Medical Records Data Attestation: I reviewed the patient's medical records Lab / Micro Data Attestation: I reviewed the patient's lab results. 02/07/24 12:25 02/07/24 12:25 Labs: Laboratory Results - last 24 hr 02/07/24 12:25: Sodium 134 L, Potassium 4.1, Chloride 100, Carbon Dioxide 32.0, Anion Gap 2 L, BUN 22 H, Creatinine 1.08, Estim Creat Clear Calc 52.58, Est GFR (MDRD) Af Amer 85, Est GFR (MDRD) Non-Af 70, BUN/Creatinine Ratio 20.4 H, Glucose 233 H, Calcium 10.5 H, Total Bilirubin 0.50, AST 16, ALT 16, Alkaline Phosphatase 123 H, Troponin I High Sens 4, Total Protein 7.9, Albumin 3.8, Globulin 4.1, Albumin/Globulin Ratio 0.9 02/07/24 12:50: Urine Color Yellow, Urine Clarity Cloudy, Urine pH 6.0, Ur Specific [place] 1.020, Urine Protein 100 H, Urine Glucose (UA) 1000 H, Urine Ketones 5 H, Urine Occult Blood 250 H, Urine Nitrite Negative, Urine Bilirubin Negative, Urine Urobilinogen Normal, Ur Leukocyte Esterase 100 H, Urine RBC 50-100 SEEN, Urine WBC 10-25 SEEN, Ur Squamous Epith Cells 0-5 SEEN, Urine Bacteria RARE, Urine Mucus 0 SEEN ABG Data ABG results: ABG 02/07/24 14:26 Specimen Type ART Sample Site R Radial pH 7.46 H Bicarbonate Actual 23.1 Total CO2 24 Base Excess -1 O2 Saturation 100 H O2 % 100.0 ABG pCO2 32.7 L ABG pO2 320 H* Alireza Test Positive Respiration Rate 14 O2 Delivery Device ET Tube Vent Mode AC Tidal Volume 450.0 POC PEEP 5 Crit Call To/Read Back Yes Blood Gas Notified Whom AR Blood Gas Notified Time 14:29:26 Imaging Radiology Impression Chest X-Ray 02/07/24 13:09 IMPRESSION: The tip of the endotracheal tube is just proximal to the ayanna. It should be withdrawn approximately 2 cm. Increased markings at the lung bases suggestive of atelectasis and/or early infiltrates. No radiopaque foreign body is seen. Electronically Signed: Alcon Quinn MD at 13:21 EDT , Chest CT 02/07/24 13:21 IMPRESSION: No radiopaque foreign body is seen. Infiltrates in the posterior aspect of the right upper lobe as well as in both lower lobes superimposed on chronic scarring. Electronically Signed: Alcon Quinn MD at 14:14 EDT , ADDENDUM: 02/07/24 1445 IMPRESSION: undefined Assessment & Plan Assessment/Plan (1) Parkinson's disease dementia: QUALIFIERS: Qualified Code(s): F02.80 - Dementia in other diseases classified elsewhere without behavioral disturbance PLAN: Plan 78-year-old man with history of Parkinson's disease, type 2 diabetes, edentulous uses dentures, dementia, was brought to the ED with concerns regarding esophageal food impaction. He has associated acute on chronic respiratory failure which could be because of aspiration pneumonitis. Evaluation after endotracheal intubation showed no tracheal food aspiration. #Esophageal food impaction: -Poor stirfry is likely impacted in the esophagus resulting in the aspiration -Gastrology is aware plan for urgent EGD in the OR today -Continue to monitor vitals #Acute on chronic respiratory failure: Likely with aspiration pneumonitis -Continue ventilation for now -Once EGD is done will attempt extubation -Continue Unasyn to prevent any aspiration pneumonia -Spontaneous breathing trial tomorrow #CODE STATUS: Patient who prefers DNR CCA DNI: However given the acute presentation and concerns regarding aspiration his COVID was reversed after discussion with family -Discussion regarding the CODE STATUS and extubation after the upper endoscopy #BPH: Continue home meds #Parkinson's disease: Continue carbidopa levodopa #Dementia: Continue donepezil #Type 2 diabetes: Insulin per sliding scale for now #DVT prophylaxis: Enoxaparin 40 mg subcutaneous
--- NOTE | 2024-02-07 16:09 | ED.RN ---
RESTRAINT APPLICATION APPLIED EARLIER FOR THE PROTECTION OF LINES AND DRAINS. SEE RESTRAINT PAPER DOCUMENTATION. PATIENT INITIALLY RESTLESS. ATTEMPTS AT EXPLAINING TO THE PATIENT AND FAMILY, COMFORT, PATIENT NEEDS MET, DISTRACTION, SUPPORT AT BEDSIDE UNSUCCESSFUL.
[2024-02-07 16:11] LABS: Absolute Lymphocyte Count 1.88 X10^3/uL (0.83-4.51); Absolute Neutrophil Count 6.6 X10^3/uL (2.0-7.7); Basophil# 0.09 X10^3/uL; Basophil% 0.9 % (0-1); Eosinophil# 0.18 X10^3/uL; Eosinophils% 1.9 % (0-5); Hematocrit 43.5 % (40-54); Hemoglobin 13.9 g/dL (13.0-16.5); Lymphocyte # 1.88 X10^3/ul (0.83-4.51); Lymphocyte % 19.4 % (19-41); Mean Corpuscular Hgb 30.5 pg (27.0-32.0); Mean Corpuscular Volume 95.4 fL (80-94); Mean Platelet Vol. 11.6 fl (6.2-12.0); Monocyte# 0.87 X10^3/uL; NRBC Flagged by Analyzer 0 % (0-5); Neutrophil # 6.64 X10^3/uL (2.7-7.7); Neutrophil % 68.3 % (47-70); Platelet Count 226 K/mm3 (150-450); RBC Distribution Width CV 12.5 % (11.6-14.6); RBC Distribution Width SD 43.8 fl (35.1-43.9); Red Blood Count 4.56 M/mm3 (4.6-6.2); White Blood Count 9.7 K/mm3 (4.4-11.0)
--- NOTE | 2024-02-07 16:37 | ED.RN ---
REPORT CALLED TO ICU NURSEABEL AT THIS TIME. NO FURTHER QUESTIONS BY THE NURSE FOLLOWING REPORT.
--- NOTE | 2024-02-07 18:00 | NURSING ---
Dr vallejo doing bedside EGD at this time to retrieve foreign body from esophagus.
--- NOTE | 2024-02-07 18:25 | EGD_PTH ---
PATIENT: JODIE AMAYA LOC: [facility] U#:[id number] AGE/SX: 78/M ROOM: [facility] RE02/07/[address]: Dr. Milton Marley MD : 1945 BED: 1 DIS: 02/10/2024 SPEC #: [id number] RECD: 02/08/24 09:58 STATUS: RICHARD REQ #: [id number] YVETTE: 02/07/24 18:[address]: Star Omalley DEPT: SURGICAL PATHOLOGY RECD BY: Mayra Owusu ENTERED: 02/08/24 10:45 SP TYPE: EGD BIOPSY OTHR DR: MD Dr. Kayden Klein MD Dr. Achintya Singh, MD Dr. Derek Brown, DO Dr. Eric Jopperi, DO Dr. Edward Matheis, MD Dr. Gautam Baskaran, MD Dr. Yordanos Habtegebriel, MD Dr. Hemant Dand, MD Dr. Jose Ochoa, MD Dr. Kimber Foust, MD Dr. Lamia Aljundi, MD Dr. Mark Elderbrock, MD Dr. Pritam Ghosh, MD Dr. Pavan Irukulla, MD Dr. Saad Farooqi, MD Dr. Vikram Anand, MD Dr. William Haden, MD Tissues: Esophagus, NOS Procedures: Surgery Specimen Level IV Comments: @ Ordering doctor for SUIV edited from to @ radha FARFAN at 02/08/24 1224 @ Submitting doctor edited from to @ radha FARFAN at 02/08/24 1224 HEADER OPERATION: EGD with foreign body removal and biopsy PRE-OP DIAGNOSIS: Foreign body TISSUE SUBMITTED: Proximal esophagus biopsy MICROSCOPIC DIAGNOSIS Proximal esophagus, biopsy: Fragments of benign squamous mucosa. No evidence of inflammation. MATT/ 02/09/2024 MICROSCOPIC DESCRIPTION Slides are reviewed. GROSS DESCRIPTION Received in fixative is one container labeled with the patient's name and designated Proximal esophagus biopsy. The specimen consists of multiple irregular fragments of light mejia soft tissue that in aggregate measure 1.4 x 0.3 x 0.1 cm. The specimen is totally submitted in one cassette. KINGSLEY/ 02/08/2024 TC:5 CPT:59861
[2024-02-07 18:35] LABS: CPK Total, Creatine Kinase 93 U/L (39-308); Triglycerides 257 mg/dL
--- NOTE | 2024-02-07 18:36 | CON.PCM.GI_ITS ---
HPI Consult Data Date of Consult: 02/07/24 HPI Narrative Reason for Consultation: Foreign body HPI Narrative: JODIE AMAYA, is 78-year-old male presents with concern for foreign body aspiration. He is accompanied by his and [id number]. They state he was eating pork chops for lunch. They noted all of a sudden became distressed, choking, drooling. They were concerned so called EMS. On arrival the patient does not provide a lot of history secondary to history of dementia and Parkinson disease. He was intubated in the emergency room due to respiratory distress. He got a CT scan of the chest that displays foreign body in the proximal esophagus and I was consulted for therapeutic removal of foreign body in his proximal esophagus. [facility] Medical History (Updated 02/07/24 @ 18:[address] Graves Friend, DO) Walker as ambulation aid Prostate disease Anemia Back pain Shortness of breath on exertion History of edema Wears dentures Wears glasses Diabetes High cholesterol History of diverticulitis Former smoker Anxiety Depression History of dementia Parkinsons disease Callus of foot Diarrhea Diabetes mellitus type 2 in nonobese Hypertension Home Medications ?Medication ?Instructions ?Recorded ?Last Taken ?Type donepezil 10 mg tablet (Aricept) 10 mg PO QHS memory 06/26/18 02/01/24 History atorvastatin 10 mg tablet 10 mg PO QHS cholesterol 08/26/19 02/01/24 History carbidopa ER 25 mg-levodopa 100 mg 1 tab PO TID parkinsons 08/26/19 02/02/24 History tablet,extended release cholecalciferol (vitamin D3) 25 5,000 unit PO DAILY supplement 08/26/19 06/22/23 History mcg (1,000 unit) tablet acidophilus 25 million 1 tab PO DAILY 09/11/19 02/01/24 Rx cell-pectin, citrus 100 mg tablet multivitamin 1 tab PO DAILY 06/16/23 02/01/24 History metformin 500 mg tablet 500 mg PO BID 01/18/24 02/01/24 History tamsulosin 0.4 mg capsule 0.4 mg PO QHS 01/18/24 02/01/24 History ciprofloxacin HCl 500 mg tablet 500 mg PO BID #10 tabs 02/02/24 Unknown Rx (Cipro) bisacodyl 10 mg rectal suppository 10 mg [place] DAILY PRN constipation 02/07/24 Unknown History escitalopram oxalate 20 mg tablet 20 mg PO DAILY 02/07/24 Unknown History magnesium hydroxide 400 mg/5 mL 30 ml PO DAILY PRN constipation 02/07/24 Unknown History oral suspension (Dulcolax (magnesium hydroxide)) Allergy/AdvReac Type Severity Reaction Status Date / Time codeine AdvReac Nausea/Vom/ Verified 02/02/24 07:30 Diarrhea Family History Father Hypertension Heart disease Surgical History Hx of foot surgery Hx of colonoscopy s/p stomach surgery Social History Smoking Status: Former smoker alcohol intake: never ROS Review of Systems ROS Unobtainable: due to endotracheal tube; Denies due to encephalopathy, due to mental condition, due to mental status or other Physical Exam Const Constitutional Narrative: Intubated, sedated Resp normal respiratory effort Resp Narrative: Mechanically ventilated on sedation Cardio regular rate and regular rhythm Extremity normal to inspection Neuro Neuro Narrative: , On sedation Lab / Micro Data 02/07/24 12:25 02/07/24 12:25 Labs: Laboratory Results - last 24 hr 02/07/24 12:25: WBC 9.7, RBC 4.56 L, Hgb 13.9, Hct 43.5, MCV 95.4 H, MCH 30.5, MCHC 32.0, RDW Std Deviation 43.8, RDW Coeff of Christie 12.5, Plt Count 226, MPV 11.6, Immature Gran % (Auto) 0.500, Neut % (Auto) 68.3, Lymph % (Auto) 19.4, [place] % (Auto) 9.0, Eos % (Auto) 1.9, Baso % (Auto) 0.9, Absolute Neuts (auto) 6.6, Absolute Lymphs (auto) 1.88, Nucleated RBC % 0, Sodium 134 L, Potassium 4.1, Chloride 100, Carbon Dioxide 32.0, Anion Gap 2 L, BUN 22 H, Creatinine 1.08, Estim Creat Clear Calc 52.58, Est GFR (MDRD) Af Amer 85, Est GFR (MDRD) Non-Af 70, BUN/Creatinine Ratio 20.4 H, Glucose 233 H, Calcium 10.5 H, Total Bilirubin 0.50, AST 16, ALT 16, Alkaline Phosphatase 123 H, Total Creatine Kinase 93, Troponin I High Sens 4, Total Protein 7.9, Albumin 3.8, Globulin 4.1, Albumin/Globulin Ratio 0.9, Triglycerides 257 H 02/07/24 12:50: Urine Color Yellow, Urine Clarity Cloudy, Urine pH 6.0, Ur Specific [place] 1.020, Urine Protein 100 H, Urine Glucose (UA) 1000 H, Urine Ketones 5 H, Urine Occult Blood 250 H, Urine Nitrite Negative, Urine Bilirubin Negative, Urine Urobilinogen Normal, Ur Leukocyte Esterase 100 H, Urine RBC 50- 100 SEEN, Urine WBC 10-25 SEEN, Ur Squamous Epith Cells 0-5 SEEN, Urine Bacteria RARE, Urine Mucus 0 SEEN ABG Data ABG results: ABG 02/07/24 14:26 Specimen Type ART Sample Site R Radial pH 7.46 H Bicarbonate Actual 23.1 Total CO2 24 Base Excess -1 O2 Saturation 100 H O2 % 100.0 ABG pCO2 32.7 L ABG pO2 320 H* Alireza Test Positive Respiration Rate 14 O2 Delivery Device ET Tube Vent Mode AC Tidal Volume 450.0 POC PEEP 5 Crit Call To/Read Back Yes Blood Gas Notified Whom AR Blood Gas Notified Time 14:29:26 Imaging Radiology Impression Chest X-Ray 02/07/24 13:09 IMPRESSION: The tip of the endotracheal tube is just proximal to the ayanna. It should be withdrawn approximately 2 cm. Increased markings at the lung bases suggestive of atelectasis and/or early infiltrates. No radiopaque foreign body is seen. Electronically Signed: Alcon Quinn MD at 13:21 EDT , Chest CT 02/07/24 13:21 IMPRESSION: No radiopaque foreign body is seen. Infiltrates in the posterior aspect of the right upper lobe as well as in both lower lobes superimposed on chronic scarring. Electronically Signed: Alcon Quinn MD at 14:14 EDT , ADDENDUM: 02/07/24 2031 IMPRESSION: undefined Assessment & Plan Assessment/Plan (1) Foreign body: PLAN: He will undergo an upper endoscopy with removal of food from his proximal esophagus. His was explained alternatives, risk, benefits include not withstanding bleeding, infection, sepsis, perforation, need for emergent urgent . He will have an ASA of 3. Charges/Coding Visit Charges Inpatient E&M: 52199 Init Hosp L2
--- NOTE | 2024-02-07 18:39 | OP.EGD_ITS ---
Patient Name: Arnaud Cardenas Procedure Date: 02/07/2024 6:03 PM Date of : 1945 Age: 78 Procedure: Upper GI endoscopy Indications: Dysphagia Providers: Star Omalley DO Medicines: Propofol infusion 5 mcg/kg/min IV Patient Profile: This is a 78 year old male. Refer to note in patient chart for documentation of history and physical. Patient has symptoms of acute dysphagia. Complications: No immediate complications. Procedure: Pre-Anesthesia Assessment: - Prior to the procedure, a History and Physical was performed, and patient medications and allergies were reviewed. The patient is competent. The risks and benefits of the procedure and the sedation options and risks were discussed with the patient. All questions were answered and informed consent was obtained. Patient identification and proposed procedure were verified by the physician. Mental Status Examination: normal. Prophylactic Antibiotics: The patient does not require prophylactic antibiotics. Prior Anticoagulants: The patient has taken no anticoagulant or antiplatelet agents except for NSAID medication. ASA Grade Assessment: II - A patient with mild systemic disease. After reviewing the risks and benefits, the patient was deemed in satisfactory condition to undergo the procedure. The anesthesia plan was to use monitored anesthesia care (MAC). Immediately prior to administration of medications, the patient was re-assessed for adequacy to receive sedatives. The heart rate, respiratory rate, oxygen saturations, blood pressure, adequacy of pulmonary ventilation, and response to care were monitored throughout the procedure. The physical status of the patient was re-assessed after the procedure. After obtaining informed consent, the endoscope was passed under direct vision. Throughout the procedure, the patient's blood pressure, pulse, and oxygen saturations were monitored continuously. The gastroscope was introduced through the mouth, and advanced to the second part of duodenum. Scope In: 6:07:23 PM Scope Out: 6:15:35 PM Total Procedure Duration Time 0 hours 8 minutes 12 seconds Findings: Food was found in the upper third of the esophagus. Removal was accomplished with a Ordonez net. Verification of patient identification for the specimen was done by the physician. Estimated blood loss was minimal. A severe Schatzki ring was found in the upper third of the esophagus. A guidewire was placed and the scope was withdrawn. Dilation was performed with a Savary dilator with no resistance at 42 Fr. The dilation site was examined and showed moderate mucosal disruption. Estimated blood loss was minimal. Biopsies were taken with a cold forceps for histology. Verification of patient identification for the specimen was done. Estimated blood loss was minimal. A non-obstructing Schatzki ring was found in the lower third of the esophagus. A medium-sized hiatal hernia was present. The cardia and gastric fundus were normal on retroflexion. No gross lesions were noted in the duodenal bulb. Impression: - Food in the upper third of the esophagus. Removal was successful. - Severe Schatzki ring. Dilated. Biopsied. - Non-obstructing Schatzki ring. - Medium-sized hiatal hernia. - No gross lesions in the duodenal bulb. Recommendation: - NPO. - Continue present medications. - Await pathology results. Procedure Code(s): --- Professional --- 59172, Esophagogastroduodenoscopy, flexible, transoral; with removal of foreign body(s) 87795, 51, Esophagogastroduodenoscopy, flexible, transoral; with insertion of guide wire followed by passage of dilator(s) through esophagus over guide wire 56009, 59, Esophagogastroduodenoscopy, flexible, transoral; with biopsy, single or multiple CPT copyright 2021 [employer]. All rights reserved. The codes documented in this report are preliminary and upon buckle strap puncher review may be revised to meet current compliance requirements. Star Omalley DO 02/07/2024 6:38:52 PM This report has been signed electronically. Number of Addenda: 0 Note Initiated On: 02/07/2024 6:03 PM
--- NOTE | 2024-02-07 18:39 | OP.CCLET_ITS ---
02/07/2024 Pawel Myers [address] [place] [address] Re : Upper GI endoscopy procedure for Arnaud Cardenas Dear Dr. Myers This procedure was performed on Wednesday, February 07, 2024. My impressions and recommendations are as follows: Impressions : - Food in the upper third of the esophagus. Removal was successful. - Severe Schatzki ring. Dilated. Biopsied. - Non-obstructing Schatzki ring. - Medium-sized hiatal hernia. - No gross lesions in the duodenal bulb. Recommendations : - NPO. - Continue present medications. - Await pathology results. My findings are described in the full procedure note, which is enclosed. If I can be of further assistance, please feel free to contact me at . Sincerely, Star Oamlley, 02/07/2024 6:38:52 PM This report has been signed electronically.
[2024-02-07] MEDS: Propofol 10MG/Ml 1,000 MG/100 ML Bottle 7.8 MG CONT INF (19:38)
[2024-02-07] MEDS: 0.9% Saline Lock 10 ML Syringe IV (19:39)
[2024-02-07] MEDS: Insulin Lispro 100 UNIT/ML INSULN.PEN SC (21:52)
[2024-02-07] MEDS: Chlorhexidine 15 ML PO (21:53)
[2024-02-07 22:08] LABS: Bedside Glucose 229 mg/dL (74-106)
[2024-02-08] VITALS (19 sets, daily range): BP systolic 82–138; BP diastolic 54–78; PULSE 75–89; RESP 10–15; TEMP 35.9–36.8; O2SAT 93–99; BMI 21.2
[2024-02-08] MEDS: Insulin Lispro 100 UNIT/ML INSULN.PEN SC ×4 (02:19→20:58)
[2024-02-08 02:36] LABS: Bedside Glucose 265 mg/dL (74-106)
[2024-02-08 04:09] LABS: Absolute Lymphocyte Count 0.43 X10^3/uL (0.83-4.51); Absolute Neutrophil Count 9.6 X10^3/uL (2.0-7.7); Basophil# 0.05 X10^3/uL; Basophil% 0.4 % (0-1); Hematocrit 36.7 % (40-54); Hemoglobin 11.9 g/dL (13.0-16.5); Lymphocyte # 0.43 X10^3/ul (0.83-4.51); Lymphocyte % 3.7 % (19-41); Mean Corp Hgb Conc 32.4 g/dL (32-36); Mean Corpuscular Hgb 30.4 pg (27.0-32.0); Mean Corpuscular Volume 93.9 fL (80-94); Mean Platelet Vol. 10.3 fl (6.2-12.0); Monocyte# 1.38 X10^3/uL; NRBC Flagged by Analyzer 0 % (0-5); Neutrophil # 9.59 X10^3/uL (2.7-7.7); Neutrophil % 83.2 % (47-70); POSITIVE DIFFERENTIAL YES; POSITIVE MORPHOLOGY YES; Platelet Count 202 K/mm3 (150-450); RBC Distribution Width CV 12.7 % (11.6-14.6); RBC Distribution Width SD 43.8 fl (35.1-43.9); Red Blood Count 3.91 M/mm3 (4.6-6.2); White Blood Count 11.5 K/mm3 (4.4-11.0)
[2024-02-08 04:26] LABS: Prothrombin Time (Protime)PT. 13.1 SECONDS (11.7-14.9)
[2024-02-08 04:52] LABS: ALB/GLOB Ratio 0.9 RATIO (0.9-2.4); AST(SGOT) 12 U/L (15-37); Alanine Aminotransfer ALT/SGPT 20 U/L (16-61); Albumin, Serum 2.9 g/dL (3.2-5.0); Alkaline Phosphatase 83 U/L (45-117); Anion Gap 8 (5-15); BUN 31 mg/dL (7-18); BUN/Creat Ratio 20.4 RATIO (10-20); Bilirubin, Direct 0.17 mg/dL (0.00-0.30); Calcium,Total 8.9 mg/dL (8.5-10.1); Chloride 103 mmol/L (98-107); Creatinine, Serum 1.52 mg/dL (0.70-1.30); EST Glomerular Filtration Rate 48 mL/min (>60); Est Glom Filt Rate - Afr Amer 57 mL/min (>60); Globulin 3.2 g/dL (2.2-4.2); Glucose 251 mg/dL (74-106); Phosphorus 4.3 mg/dL (2.5-4.9); Potassium 4.5 mmol/L (3.5-5.1); Protein, Total 6.1 g/dL (6.4-8.2); Sodium Level 135 mmol/L (136-145); Thyroid Stim Hormone (TSH) 0.79 uIU/mL (0.358-3.74)
[2024-02-08 04:54] LABS: Differential Indicated SCAN CRITERIA MET
[2024-02-08] MEDS: Ampicillin/Sulbactam 3 GM in 0.9% Normal Saline (100mL MB+) 100 ML IV ×4 (05:45→23:12)
--- NOTE | 2024-02-08 06:59 | PN.HOSP_ITS ---
Reason for Visit Reason for Visit: Diagnoses Dementia in other diseases classified elsewhere, unspecified severity, without behavioral disturbance, psychotic disturbance, mood disturbance, and anxiety (02/07/24) Parkinson's disease (02/07/24) Subjective Subjective Extubated today. Discussed with he and his . No past history of swallowing issues though he has seen speech therapy in the past. Objective Data Objective Data Vital Signs: Vital Signs Temp Pulse Resp BP Pulse Ox O2 Del Method O2 Flow Rate 35.9 C L 75 11 L 122/63 H 96 Mechanical Ventilator 12 02/08/24 04:00 02/08/24 06:00 02/08/24 06:07 02/08/24 06:00 02/08/24 06:00 02/08/24 06:00 02/07/24 12:30 FiO2 30 02/08/24 06:00 Oxygen Flow Rate (L/min) 12 Oxygen Delivery Method Mechanical Ventilator Weight: 63.5 kg Body Mass Index (BMI) 21.2 Intake & Output: Intake and Output for Last 24 Hours 02/06/24 02/07/24 02/08/24 23:59 23:59 23:59 Intake Total 889.39 / 1004.09 274.40 / 274.40 Output Total 400 / 425 175 / 175 Balance 489.39 / 579.09 99.40 / 99.40 Lab / Micro Data 02/08/24 04:00 02/08/24 04:00 Labs: Laboratory Results - last 24 hr 02/07/24 12:25: WBC 9.7, RBC 4.56 L, Hgb 13.9, Hct 43.5, MCV 95.4 H, MCH 30.5, MCHC 32.0, RDW Std Deviation 43.8, RDW Coeff of Christie 12.5, Plt Count 226, MPV 11.6, Immature Gran % (Auto) 0.500, Neut % (Auto) 68.3, Lymph % (Auto) 19.4, [place] % (Auto) 9.0, Eos % (Auto) 1.9, Baso % (Auto) 0.9, Absolute Neuts (auto) 6.6, Absolute Lymphs (auto) 1.88, Nucleated RBC % 0, Sodium 134 L, Potassium 4.1, Chloride 100, Carbon Dioxide 32.0, Anion Gap 2 L, BUN 22 H, Creatinine 1.08, Estim Creat Clear Calc 52.58, Est GFR (MDRD) Af Amer 85, Est GFR (MDRD) Non-Af 70, BUN/Creatinine Ratio 20.4 H, Glucose 233 H, Calcium 10.5 H, Total Bilirubin 0.50, AST 16, ALT 16, Alkaline Phosphatase 123 H, Total Creatine Kinase 93, Troponin I High Sens 4, Total Protein 7.9, Albumin 3.8, Globulin 4.1, Albumin/Globulin Ratio 0.9, Triglycerides 257 H 02/07/24 12:50: Urine Color Yellow, Urine Clarity Cloudy, Urine pH 6.0, Ur Specific [place] 1.020, Urine Protein 100 H, Urine Glucose (UA) 1000 H, Urine Ketones 5 H, Urine Occult Blood 250 H, Urine Nitrite Negative, Urine Bilirubin Negative, Urine Urobilinogen Normal, Ur Leukocyte Esterase 100 H, Urine RBC 50- 100 SEEN, Urine WBC 10-25 SEEN, Ur Squamous Epith Cells 0-5 SEEN, Urine Bacteria RARE, Urine Mucus 0 SEEN 02/07/24 21:45: POC Glucose 229 H 02/08/24 02:17: POC Glucose 265 H 02/08/24 04:00: WBC 11.5 H, RBC 3.91 L, Hgb 11.9 L, Hct 36.7 L, MCV 93.9, MCH 30.4, MCHC 32.4, RDW Std Deviation 43.8, RDW Coeff of Christie 12.7, Plt Count 202, MPV 10.3, Immature Gran % (Auto) 0.700, Neut % (Auto) 83.2 H, Lymph % (Auto) 3.7 L, [place] % (Auto) 12.0 H, Eos % (Auto) 0.0, Baso % (Auto) 0.4, Absolute Neuts (auto) 9.6 H, Absolute Lymphs (auto) 0.43 L, Nucleated RBC % 0, PT 13.1, INR 1.0, Sodium 135 L, Potassium 4.5, Chloride 103, Carbon Dioxide 24.0, Anion Gap 8, BUN 31 H, Creatinine 1.52 H, Estim Creat Clear Calc 36.50, Est GFR (MDRD) Af Amer 57 L, Est GFR (MDRD) Non-Af 48 L, BUN/Creatinine Ratio 20.4 H, Glucose 251 H, Calcium 8.9, Phosphorus 4.3, Magnesium 2.0, Total Bilirubin 0.50, Direct Bilirubin 0.17, AST 12 L, ALT 20, Alkaline Phosphatase 83, Total Protein 6.1 L, Albumin 2.9 L, Globulin 3.2, Albumin/Globulin Ratio 0.9, TSH 0.79 ABG Data ABG results: ABG 02/07/24 14:26 Specimen Type ART Sample Site R Radial pH 7.46 H Bicarbonate Actual 23.1 Total CO2 24 Base Excess -1 O2 Saturation 100 H O2 % 100.0 ABG pCO2 32.7 L ABG pO2 320 H* Alireza Test Positive Respiration Rate 14 O2 Delivery Device ET Tube Vent Mode AC Tidal Volume 450.0 POC PEEP 5 Crit Call To/Read Back Yes Blood Gas Notified Whom AR Blood Gas Notified Time 14:29:26 Radiography Diagnostic Testing: Radiology Impression Chest X-Ray 02/07/24 13:09 IMPRESSION: The tip of the endotracheal tube is just proximal to the ayanna. It should be withdrawn approximately 2 cm. Increased markings at the lung bases suggestive of atelectasis and/or early infiltrates. No radiopaque foreign body is seen. Electronically Signed: Alcon Quinn MD at 13:21 EDT , Chest CT 02/07/24 13:21 IMPRESSION: No radiopaque foreign body is seen. Infiltrates in the posterior aspect of the right upper lobe as well as in both lower lobes superimposed on chronic scarring. Electronically Signed: Alcon Quinn MD at 14:14 EDT , ADDENDUM: 02/07/24 1445 IMPRESSION: undefined Physical Exam Const Constitutional Narrative: Resting in bed. Comfortable. On room air. No respiratory distress. HEENT head/scalp atraumatic and moist oral mucous membranes Resp normal respiratory effort and no retractions Resp Narrative: Bibasilar crackles Cardio regular rate, regular rhythm, S1 normal heart sound and S2 normal heart sound GI normal to inspection, nondistended, normoactive bowel sounds, soft to palpation, non-tender and non-distended Extremity normal to inspection Assessment & Plan Assessment/Plan (1) Parkinson's disease dementia: QUALIFIERS: Qualified Code(s): F02.80 - Dementia in other diseases classified elsewhere without behavioral disturbance PLAN: Plan Acute hypoxic respiratory failure * Resolved * likely secondary to acute on chronic aspiration * Pulse ox is down to 79%. * CT personally reviewed shows chronic changes along with bilateral infiltrates. * Critical care medicine on for ventilator management * Patient was intubated on the and extubated this morning on the . Bilateral aspiration pneumonia * Patient with known Parkinson's and Schatzki which is likely the etiology for his issues with aspiration. * Continue with antibiotics with ampicillin-sulbactam. * Speech therapy evaluation Esophageal food impaction * Patient was eating pork stirfry when this happened. Patient underwent an EGD that showed food in the upper third of the esophagus that was removed. Severe Schatzki ring that was dilated and biopsied, not obstructed Schatzki ring, hiatal hernia. * Follow-up with gastroenterology as outpatient. Chronic conditions * Parkinson disease: Continue with carbidopa levodopa * Dementia: Continue with donezepil * Diabetes mellitus type 2: Metformin on hold for now. Sliding scale insulin * BPH: Tamsulosin CODE STATUS: Patient who prefers DNR CCA DNI: However given the acute presentation and concerns regarding aspiration his COVID was reversed after discussion with family Disposition: To be determined. Patient is doing very well despite his acute issues last night. Waiting on therapy evaluations to determine what additional services he is requiring. If patient does well with therapy, could consider discharge as early as today but if additional studies would be warranted (such as modified barium swallow) then patient will likely stay another night. But nonetheless, patient is doing extremely well despite his critical presentation yesterday. Charges/Coding Visit Charges Inpatient E&M: 63566 Subs Hosp L2
[2024-02-08 07:17] LABS: Differential Comment SCANNED
--- NOTE | 2024-02-08 07:41 | EX.PCM.CONCC ---
Assessment & Plan Assessment/Plan (1) Acute hypoxemic respiratory failure: PLAN: Plan RECOMMENDATIONS: 1. Proceed with a trial of extubation this morning. 2. Once extubated, wean supplemental oxygen to maintain saturations at or above 90%. 3. Speech therapy evaluation. 4. Nutritional support will need to be coordinated with speech therapy and gastroenterology. 5. Continue Unasyn for now, pending sputum culture results. 6. Encourage incentive spirometer use and mobilize patient as tolerated. IMPRESSIONS: 1. Acute hypoxemic respiratory failure Related to an aspiration event with food impaction in the esophagus. The patient was seen by GI and underwent endoscopic evaluation with subsequent removal of the retained food. The patient was intubated as a consequence of the aforementioned episode, but was able to be successfully extubated this morning after completing his spontaneous breathing trial. The patient has been maintained on Unasyn to cover for possible aspiration. 2. History of Parkinson's disease/dementia/diabetes mellitus/BPH Complicates care, management, recovery and prognosis. Resume home medications once extubated. TIME: 31 minutes of critical care time, independent of procedures, was spent addressing the patient's acute hypoxemic respiratory failure, food impaction in the proximal esophagus, review of all data and collaboration with the care team. HPI Consult Data Date of Consult: 02/08/24 HPI Narrative Reason for Consultation: Acute respiratory failure HPI Narrative: The patient is a 78-year-old male, with a history as outlined below, who presented to the emergency department on February 06 following an aspiration event and associated hypoxemia. The patient has a known history of Parkinson's disease, dementia and generalized weakness. There was initial concern for possible food impaction, as the patient had been eating pork chops for lunch and apparently began choking. According to ED documentation, the patient presented and was noted to be hypoxemic. He was documented to be gurgling and in respiratory distress. Therefore, the patient was emergently intubated for airway protection. After intubation, the patient was not noted to have any foreign bodies in his trachea. Therefore, gastroenterology was consulted. The patient subsequently underwent EGD which revealed food in the upper third of the esophagus, which was successfully removed. A severe Schatzki ring was noted which was successfully dilated and biopsied. The patient was placed on Unasyn over concerns for aspiration and admitted to the medical intensive care unit postprocedure. This morning, the patient remains clinically stable with a white blood cell count of 11,000. Creatinine is increased at 1.52. The patient successfully passed his spontaneous breathing trial this morning. He is alert and appropriately interactive. Therefore, the patient was successfully extubated. [facility] Medical History (Updated 02/08/24 @ 07:[address] Yung Leigh, DO) Walker as ambulation aid Prostate disease Anemia Back pain Shortness of breath on exertion History of edema Wears dentures Wears glasses Diabetes High cholesterol History of diverticulitis Former smoker Anxiety Depression History of dementia Parkinsons disease Callus of foot Diarrhea Diabetes mellitus type 2 in nonobese Hypertension Home Medications ?Medication ?Instructions ?Recorded ?Last Taken ?Type donepezil 10 mg tablet (Aricept) 10 mg PO QHS memory 06/26/18 02/01/24 History atorvastatin 10 mg tablet 10 mg PO QHS cholesterol 08/26/19 02/01/24 History carbidopa ER 25 mg-levodopa 100 mg 1 tab PO TID parkinsons 08/26/19 02/02/24 History tablet,extended release cholecalciferol (vitamin D3) 25 5,000 unit PO DAILY supplement 08/26/19 06/22/23 History mcg (1,000 unit) tablet acidophilus 25 million 1 tab PO DAILY 09/11/19 02/01/24 Rx cell-pectin, citrus 100 mg tablet multivitamin 1 tab PO DAILY 06/16/23 02/01/24 History metformin 500 mg tablet 500 mg PO BID 01/18/24 02/01/24 History tamsulosin 0.4 mg capsule 0.4 mg PO QHS 01/18/24 02/01/24 History ciprofloxacin HCl 500 mg tablet 500 mg PO BID #10 tabs 02/02/24 Unknown Rx (Cipro) bisacodyl 10 mg rectal suppository 10 mg ND DAILY PRN constipation 02/07/24 Unknown History escitalopram oxalate 20 mg tablet 20 mg PO DAILY 02/07/24 Unknown History magnesium hydroxide 400 mg/5 mL 30 ml PO DAILY PRN constipation 02/07/24 Unknown History oral suspension (Dulcolax (magnesium hydroxide)) Allergy/AdvReac Type Severity Reaction Status Date / Time codeine AdvReac Nausea/Vom/ Verified 02/02/24 07:30 Diarrhea Family History Father Hypertension Heart disease Surgical History Hx of foot surgery Hx of colonoscopy s/p stomach surgery Social History Smoking Status: Former smoker alcohol intake: never ROS Review of Systems ROS Unobtainable: due to endotracheal tube Physical Exam Const Constitutional Narrative: Intubated and mechanically ventilated. Currently tolerating spontaneous mode of mechanical ventilation. HEENT normocephalic and head/scalp atraumatic Mouth: endotracheal tube in place Eyes PERRL, EOMs intact bilaterally and conjunctivae normal Neck supple General: trachea midline Chest inspection of chest normal Resp normal respiratory effort Auscultation: Negative for rales, rhonchi or wheezes Cardio regular rate and regular rhythm GI normal to inspection, nondistended, normoactive bowel sounds Extremity no clubbing, cyanosis or edema Skin no rashes or lesions noted Neuro Neuro Narrative: The patient is alert and following commands appropriately. Lab / Micro Data 02/08/24 04:00 02/08/24 04:00 Labs: Laboratory Results - last 24 hr 02/07/24 12:25: WBC 9.7, RBC 4.56 L, Hgb 13.9, Hct 43.5, MCV 95.4 H, MCH 30.5, MCHC 32.0, RDW Std Deviation 43.8, RDW Coeff of Christie 12.5, Plt Count 226, MPV 11.6, Immature Gran % (Auto) 0.500, Neut % (Auto) 68.3, Lymph % (Auto) 19.4, [place] % (Auto) 9.0, Eos % (Auto) 1.9, Baso % (Auto) 0.9, Absolute Neuts (auto) 6.6, Absolute Lymphs (auto) 1.88, Nucleated RBC % 0, Sodium 134 L, Potassium 4.1, Chloride 100, Carbon Dioxide 32.0, Anion Gap 2 L, BUN 22 H, Creatinine 1.08, Estim Creat Clear Calc 52.58, Est GFR (MDRD) Af Amer 85, Est GFR (MDRD) Non-Af 70, BUN/Creatinine Ratio 20.4 H, Glucose 233 H, Calcium 10.5 H, Total Bilirubin 0.50, AST 16, ALT 16, Alkaline Phosphatase 123 H, Total Creatine Kinase 93, Troponin I High Sens 4, Total Protein 7.9, Albumin 3.8, Globulin 4.1, Albumin/Globulin Ratio 0.9, Triglycerides 257 H 02/07/24 12:50: Urine Color Yellow, Urine Clarity Cloudy, Urine pH 6.0, Ur Specific [place] 1.020, Urine Protein 100 H, Urine Glucose (UA) 1000 H, Urine Ketones 5 H, Urine Occult Blood 250 H, Urine Nitrite Negative, Urine Bilirubin Negative, Urine Urobilinogen Normal, Ur Leukocyte Esterase 100 H, Urine RBC 50-100 SEEN, Urine WBC 10-25 SEEN, Ur Squamous Epith Cells 0-5 SEEN, Urine Bacteria RARE, Urine Mucus 0 SEEN 02/07/24 21:45: POC Glucose 229 H 02/08/24 02:17: POC Glucose 265 H 02/08/24 04:00: WBC 11.5 H, RBC 3.91 L, Hgb 11.9 L, Hct 36.7 L, MCV 93.9, MCH 30.4, MCHC 32.4, RDW Std Deviation 43.8, RDW Coeff of Christie 12.7, Plt Count 202, MPV 10.3, Immature Gran % (Auto) 0.700, Neut % (Auto) 83.2 H, Lymph % (Auto) 3.7 L, [place] % (Auto) 12.0 H, Eos % (Auto) 0.0, Baso % (Auto) 0.4, Absolute Neuts (auto) 9.6 H, Absolute Lymphs (auto) 0.43 L, Nucleated RBC % 0, Differential Comment SCANNED, PT 13.1, INR 1.0, Sodium 135 L, Potassium 4.5, Chloride 103, Carbon Dioxide 24.0, Anion Gap 8, BUN 31 H, Creatinine 1.52 H, Estim Creat Clear Calc 36.50, Est GFR (MDRD) Af Amer 57 L, Est GFR (MDRD) Non-Af 48 L, BUN/Creatinine Ratio 20.4 H, Glucose 251 H, Calcium 8.9, Phosphorus 4.3, Magnesium 2.0, Total Bilirubin 0.50, Direct Bilirubin 0.17, AST 12 L, ALT 20, Alkaline Phosphatase 83, Total Protein 6.1 L, Albumin 2.9 L, Globulin 3.2, Albumin/Globulin Ratio 0.9, TSH 0.79 ABG Data ABG results: ABG 02/07/24 14:26 Specimen Type ART Sample Site R Radial pH 7.46 H Bicarbonate Actual 23.1 Total CO2 24 Base Excess -1 O2 Saturation 100 H O2 % 100.0 ABG pCO2 32.7 L ABG pO2 320 H* Alireza Test Positive Respiration Rate 14 O2 Delivery Device ET Tube Vent Mode AC Tidal Volume 450.0 POC PEEP 5 Crit Call To/Read Back Yes Blood Gas Notified Whom AR Blood Gas Notified Time 14:29:26 Imaging Radiology Impression Chest X-Ray 02/07/24 13:09 IMPRESSION: The tip of the endotracheal tube is just proximal to the ayanna. It should be withdrawn approximately 2 cm. Increased markings at the lung bases suggestive of atelectasis and/or early infiltrates. No radiopaque foreign body is seen. Electronically Signed: Alcon Quinn MD at 13:21 EDT , Chest CT 02/07/24 13:21 IMPRESSION: No radiopaque foreign body is seen. Infiltrates in the posterior aspect of the right upper lobe as well as in both lower lobes superimposed on chronic scarring. Electronically Signed: Alcon Quinn MD at 14:14 EDT , ADDENDUM: 02/07/24 1445 IMPRESSION: undefined Charges/Coding Procedures Hospitalists Procedures: 87838 Critical Care 1st Hr
[2024-02-08 08:09] LABS: Bedside Glucose 241 mg/dL (74-106)
--- NOTE | 2024-02-08 08:11 | EX.PCM.PN.GI ---
Subjective Subjective Patient underwent emergent endoscopy yesterday after getting intubated in the ED due to respiratory compromise from a proximal esophageal food impaction. He underwent removal of esophageal food impaction yesterday. He appeared to have eosinophilic esophagitis with a stricture in the proximal esophagus that was dilated. Biopsies were taken of the proximal esophagus for eosinophilic esophagitis. He was successfully extubated today. He does have a sore throat. He is tolerating liquid diet. Objective Data Objective Data Vital Signs: Vital Signs Temp Pulse Resp BP Pulse Ox O2 Del Method O2 Flow Rate 97.6 F L 87 13 126/67 H 95 Room Air 2 02/08/24 12:00 02/08/24 12:00 02/08/24 12:00 02/08/24 12:00 02/08/24 12:00 02/08/24 14:00 02/08/24 08:00 FiO2 30 02/08/24 06:00 Oxygen Flow Rate (L/min) 2 Oxygen Delivery Method Room Air Weight: 139 lb 15.896 oz Body Mass Index (BMI) 21.2 Intake & Output: Intake and Output for Last 24 Hours 02/06/24 02/07/24 02/08/24 23:59 23:59 23:59 Intake Total 889.39 / 1004.09 386.40 / 386.40 Output Total 400 / 425 425 / 425 Balance 489.39 / 579.09 -38.60 / -38.60 Lab / Micro Data 02/08/24 04:00 02/08/24 04:00 Labs: Laboratory Results - last 24 hr 02/07/24 12:25: WBC 9.7, RBC 4.56 L, Hgb 13.9, Hct 43.5, MCV 95.4 H, MCH 30.5, MCHC 32.0, RDW Std Deviation 43.8, RDW Coeff of Christie 12.5, Plt Count 226, MPV 11.6, Immature Gran % (Auto) 0.500, Neut % (Auto) 68.3, Lymph % (Auto) 19.4, [place] % (Auto) 9.0, Eos % (Auto) 1.9, Baso % (Auto) 0.9, Absolute Neuts (auto) 6.6, Absolute Lymphs (auto) 1.88, Nucleated RBC % 0, Total Creatine Kinase 93, Triglycerides 257 H 02/07/24 21:45: POC Glucose 229 H 02/08/24 02:17: POC Glucose 265 H 02/08/24 04:00: WBC 11.5 H, RBC 3.91 L, Hgb 11.9 L, Hct 36.7 L, MCV 93.9, MCH 30.4, MCHC 32.4, RDW Std Deviation 43.8, RDW Coeff of Christie 12.7, Plt Count 202, MPV 10.3, Immature Gran % (Auto) 0.700, Neut % (Auto) 83.2 H, Lymph % (Auto) 3.7 L, [place] % (Auto) 12.0 H, Eos % (Auto) 0.0, Baso % (Auto) 0.4, Absolute Neuts (auto) 9.6 H, Absolute Lymphs (auto) 0.43 L, Nucleated RBC % 0, Differential Comment SCANNED, PT 13.1, INR 1.0, Sodium 135 L, Potassium 4.5, Chloride 103, Carbon Dioxide 24.0, Anion Gap 8, BUN 31 H, Creatinine 1.52 H, Estim Creat Clear Calc 36.50, Est GFR (MDRD) Af Amer 57 L, Est GFR (MDRD) Non-Af 48 L, BUN/Creatinine Ratio 20.4 H, Glucose 251 H, Calcium 8.9, Phosphorus 4.3, Magnesium 2.0, Total Bilirubin 0.50, Direct Bilirubin 0.17, AST 12 L, ALT 20, Alkaline Phosphatase 83, Total Protein 6.1 L, Albumin 2.9 L, Globulin 3.2, Albumin/Globulin Ratio 0.9, TSH 0.79 02/08/24 07:49: POC Glucose 241 H 02/08/24 11:28: POC Glucose 183 H Micro: Microbiology 02/07/24 13:57 Sputum, Tracheal Aspirate Gram Stain - Final Physical Exam Const Constitutional Narrative: Resting in bed. Comfortable. On room air. No respiratory distress. HEENT head/scalp atraumatic and moist oral mucous membranes Resp normal respiratory effort and no retractions Resp Narrative: Bibasilar crackles Cardio regular rate, regular rhythm, S1 normal heart sound and S2 normal heart sound GI normal to inspection, nondistended, normoactive bowel sounds, soft to palpation, non-tender and non-distended Extremity normal to inspection Assessment & Plan Assessment/Plan (1) Parkinson's disease dementia: QUALIFIERS: Qualified Code(s): F02.80 - Dementia in other diseases classified elsewhere without behavioral disturbance PLAN: Plan 78-year-old man with history of Parkinson's disease, type 2 diabetes, edentulous uses dentures, dementia, was brought to the ED with concerns regarding esophageal food impaction. He has associated acute on chronic respiratory failure which could be because of aspiration pneumonitis. Evaluation after endotracheal intubation showed no tracheal food aspiration. Esophageal food impaction: -Findings: Food was found in the upper third of the esophagus. Removal was accomplished with a Ordonez net. Verification of patient identification for the specimen was done by the physician. Estimated blood loss was minimal. A severe Schatzki ring was found in the upper third of the esophagus. A guidewire was placed and the scope was withdrawn. Dilation was performed with a Savary dilator with no resistance at 42 Fr. The dilation site was examined and showed moderate mucosal disruption. Estimated blood loss was minimal. Biopsies were taken with a cold forceps for histology. Verification of patient identification for the specimen was done. Estimated blood loss was minimal. A non-obstructing Schatzki ring was found in the lower third of the esophagus. A medium-sized hiatal hernia was present. The cardia and gastric fundus were normal on retroflexion. No gross lesions were noted in the duodenal bulb. Impression: - Food in the upper third of the esophagus. Removal was successful. - Severe Schatzki ring. Dilated. Biopsied. - Non-obstructing Schatzki ring. - Medium-sized hiatal hernia. - No gross lesions in the duodenal bulb. Recommendation: -Omeprazole 40 mg twice daily for 8 weeks and repeat upper endoscopy in 8 weeks - Advance diet as tolerated - Continue present medications. - Await pathology results.
--- NOTE | 2024-02-08 09:58 | CASEMGMT ---
Social Work SW spoke w/ at the bedside in regard to what happened. explained pt was eating a pork stir dove, she cut up the food, but he choked. She spoke about what a scary situation this was. SW offered support to her. Speech therapy to see pt today, and they will make recommendations for diet going forward, aware. She does want pt to return to [facility] at discharge, she does not need a list of nursing homes at this time. continues to say that she thinks pt will need to be there shelter. She did say if he improved maybe she would take him home, but is thinking he will be there shelter. She has a meeting today w/the SW at [facility], Mónica, and states she does not think she can be there. SW offered to call Mónica to let her know, agreeable. SW called Mónica at [facility], message left to let her know cannot make their meeting, and that the plan is for pt to return when ready and updates will be sent in [facility]. D/C planning management it specialist Lynda will send updates today to [facility] via [facility]. NAM did also check in w/pt's niece Meg as she is pt's POA, confirmed plan is for pt to return to [facility] when ready. NAM will continue to follow. LEOBARDO Lee
--- NOTE | 2024-02-08 10:03 | CASEMGMT ---
Discharge Planning Updates sent to [place] via [facility]. Lynda Quigley DC Planning Asst.
[2024-02-08] MEDS: Enoxaparin 40 MG/0.4 ML Syringe SC (10:35)
[2024-02-08] MEDS: 0.9% Normal Saline (250mL Bag) 250 ML 15 ML IV (11:29)
[2024-02-08 11:49] LABS: Bedside Glucose 183 mg/dL (74-106)
--- NOTE | 2024-02-08 14:16 | CHAPLAIN ---
Type of Pastoral Visit ___ Initial Visit ___ Follow-up Visit ___ On-call Visit ___ General Patient Visit ___ Spiritual Assessment ___ Family Conference ___ Bereavement ___ Rapid Response ___ Code Blue ___ Other (describe below) Pastoral Care Referral From ___ Patient ___ Family ___ Nurse ___ Physician ___ Electronic Warfare Specialist ___ Surgical Aides Teacher ___ Other (describe below) Sacrament/Intervention ___ Active listening ___ Anointing ___ Taoism ___ Bereavement ___ Communion ___ Anny exploration ___ ___ Life review ___ Prayer ___ Reconciliation ___ Sacrament of Sick ___ Supportive presence ___ Wedding ___ Other (describe below) Pastoral Comments patient was sleeping and no family present
[2024-02-08] MEDS: Carbidopa/Levodopa 25/100 Tablet PO (16:10)
[2024-02-08 16:38] LABS: Bedside Glucose 148 mg/dL (74-106)
[2024-02-08] MEDS: Ciprofloxacin 500 MG Tablet PO (20:48)
[2024-02-08] MEDS: Atorvastatin Calcium 10 MG Tablet PO (20:48)
[2024-02-08] MEDS: Donepezil HCl 10 MG Tablet PO (20:48)
[2024-02-08] MEDS: Tamsulosin HCl 0.4 MG Capsule PO (20:49)
[2024-02-08 21:19] LABS: Bedside Glucose 159 mg/dL (74-106)
[2024-02-09] VITALS (8 sets, daily range): BP systolic 105–148; BP diastolic 58–84; PULSE 79–87; RESP 13–18; TEMP 35.8–36.9; O2SAT 92–99; BMI 21.2
[2024-02-09] MEDS: 0.9% Normal Saline (250mL Bag) 250 ML 15 ML IV (05:00)
[2024-02-09] MEDS: Ampicillin/Sulbactam 3 GM in 0.9% Normal Saline (100mL MB+) 100 ML IV ×3 (05:02→16:50)
--- NOTE | 2024-02-09 06:53 | PN.HOSP_ITS ---
Reason for Visit Reason for Visit: Diagnoses Dementia in other diseases classified elsewhere, unspecified severity, without behavioral disturbance, psychotic disturbance, mood disturbance, and anxiety (02/07/24) Parkinson's disease (02/07/24) Acute respiratory failure with hypoxia (02/07/24) Subjective Subjective Feels well. Objective Data Objective Data Vital Signs: Vital Signs Temp Pulse Resp BP Pulse Ox O2 Del Method O2 Flow Rate 36.6 C 79 14 105/58 L 95 Room Air 2 02/09/24 03:00 02/09/24 03:00 02/09/24 03:00 02/09/24 03:00 02/09/24 06:39 02/09/24 06:39 02/08/24 08:00 FiO2 30 02/08/24 06:00 Oxygen Flow Rate (L/min) 2 Oxygen Delivery Method Room Air Weight: 63.5 kg Body Mass Index (BMI) 21.2 Intake & Output: Intake and Output for Last 24 Hours 02/07/24 02/08/24 02/09/24 23:59 23:59 23:59 Intake Total 889.39 / 1004.09 786.15 / 786.15 74.75 / 74.75 Output Total 400 / 425 875 / 875 200 / 200 Balance 489.39 / 579.09 -88.85 / -88.85 -125.25 / -125.25 Lab / Micro Data 02/08/24 04:00 02/08/24 04:00 Labs: Laboratory Results - last 24 hr 02/08/24 04:00: Differential Comment SCANNED 02/08/24 07:49: POC Glucose 241 H 02/08/24 11:28: POC Glucose 183 H 02/08/24 16:08: POC Glucose 148 H 02/08/24 20:58: POC Glucose 159 H Micro: Microbiology 02/07/24 13:57 Sputum, Tracheal Aspirate Gram Stain - Final Physical Exam Const alert and no apparent distress Constitutional Narrative: confused. non-toxic. Resp normal respiratory effort and no retractions Resp Narrative: bibasilar crackles. Cardio regular rate, regular rhythm, S1 normal heart sound and S2 normal heart sound GI normal to inspection, nondistended, normoactive bowel sounds, soft to palpation, non-tender and non-distended Extremity normal to inspection and full ROM Neuro Sensorium / Orientation: awake and alert Assessment & Plan Assessment/Plan (1) Parkinson's disease dementia: QUALIFIERS: Qualified Code(s): F02.80 - Dementia in other diseases classified elsewhere without behavioral disturbance PLAN: Plan Acute hypoxic respiratory failure * Resolved * likely secondary to acute on chronic aspiration * Pulse ox is down to 79%. * CT personally reviewed shows chronic changes along with bilateral infiltrates. * Critical care medicine on for ventilator management * Patient was intubated on the and extubated this morning on the . Bilateral aspiration pneumonia * Patient with known Parkinson's and Schatzki which is likely the etiology for his issues with aspiration. * Continue with antibiotics with ampicillin-sulbactam. Esophageal food impaction * Patient was eating pork stirfry when this happened. Patient underwent an EGD that showed food in the upper third of the esophagus that was removed. Severe Schatzki ring that was dilated and biopsied, not obstructed Schatzki ring, hiatal hernia. * Follow-up with gastroenterology as outpatient. Dysphagia * 2/2 PD * Seen by ST, modified barium swallow performed today and patient aspirates all textures. They recommended NPO. * Had discussion with the family and a do not wish to proceed with a PEG tube, which I think is very reasonable, and so spoke with speech therapy and they recommended pur?ed diet as well as thin liquids Chronic conditions * Parkinson disease: Continue with carbidopa levodopa * Dementia: Continue with donezepil * Diabetes mellitus type 2: Metformin on hold for now. Sliding scale insulin * BPH: Tamsulosin CODE STATUS: Patient who prefers DNR CCA DNI: However given the acute presentation and concerns regarding aspiration his COVID was reversed after discussion with family Disposition: To be determined. Plan is to observe the patient overnight though he is hemodynamically stable. With the aspiration and advancing diet plan will be to monitor him overnight and discharge him hopefully back to his care home facility on the . Greater than 60 minutes of which greater than 50% of the time was counseling the family at bedside about the modified barium swallow results, recommendations, my recommendation of no PEG tube as I do feel that his condition would worsen given his underlying Parkinson's disease. Also explained to them that putting a PEG tube in him would pose a risk because he would be at high risk of pulling it out and if it were done soon after being placed would have to go back and emergently to prevent the risk of peritonitis. They agreed and patient will be able to eat. Discussed with speech therapy and they recommended pur?ed texture as well as thin liquids. Charges/Coding Visit Charges Inpatient E&M: 44696 Subs Hosp L3
[2024-02-09] MEDS: Enoxaparin 40 MG/0.4 ML Syringe SC (07:46)
[2024-02-09] MEDS: Carbidopa/Levodopa 25/100 Tablet PO ×2 (07:46→15:45)
[2024-02-09] MEDS: Ciprofloxacin 500 MG Tablet PO ×2 (07:46→21:39)
[2024-02-09] MEDS: Escitalopram Oxalate 20 MG Tablet PO (07:46)
[2024-02-09 08:12] LABS: Bedside Glucose 140 mg/dL (74-106)
--- NOTE | 2024-02-09 09:08 | CASEMGMT ---
Social Work Pt to go to PCU after cookie swallow. As per physician pt may be ready for d/c today. [facility] can take pt back skilled when ready. SW on PCU updated to plan, will follow for d/c back to [facility] when ready. LEOBARDO Lee
--- NOTE | 2024-02-09 09:31 | SP.MBSS_ITS ---
Modified Barium Swallow Patient Information Study Date: 02/09/24 Study Time: 09:00 Direct Billable Minutes: 130 Total Minutes procedure & reportin Diagnosis: G20 - Parkinson's disease, J96.01 - Acute respiratory failure Referring Physician: Jose Thakkar Reason for Referral: Objectively assess swallow function, assess risk for aspiration, and determine recommendations for least restrictive diet textures and compensatory strategies to improve safety of swallow. Medical History: Arnaud Cardenas is a 78-year-old male, with a past medical history significant for Walker as ambulation aid, Prostate disease, Anemia, Back pain, Shortness of breath on exertion, History of edema, Wears dentures, Wears glasses, Diabetes, High cholesterol, History of diverticulitis, Former smoker, Anxiety, Depression, History of dementia, Parkinsons disease, Callus of foot, Diarrhea, Diabetes mellitus type 2 in nonobese and Hypertension, who presented to the emergency department on February 06 following an aspiration event w/ associated hypoxemia. The patient has a known history of Parkinson's disease, dementia and generalized weakness. There was initial concern for possible food impaction, as the patient had been eating pork chops for lunch and apparently began choking. According to ED documentation, the patient presented and was noted to be hypoxemic. He was documented to be gurgling and in respiratory distress. Therefore, the patient was emergently intubated for airway protection. After intubation, the patient was not noted to have any foreign bodies in his trachea. Therefore, gastroenterology was consulted. The patient subsequently underwent EGD which revealed food in the upper third of the esophagus, which was successfully removed. A severe Schatzki ring was noted which was successfully dilated and biopsied. The patient was placed on Unasyn over concerns for aspiration and admitted to the medical intensive care unit postprocedure. The patient was successfully extubated on February 07. Speech therapy was consulted for evaluation of swallow function post extubation. Evaluating speech therapist suspected aspiration and recommended patient to be NPO until instrumental swallow assessment can be completed. Current Diet Ordered: NPO Mental Status: Impaired (Parkinson's disease dementia) Respiratory Status: Oxygenating on Room Air Penetration-Aspiration Scale Penetration-Aspiration Scale: OBJECTIVE ASSESSMENT OF SWALLOW FUNCTION (QUANTITATIVE ? PER TRIAL): PENETRATION / ASPIRATION SCALE (BUI): 1 = does not enter airway 2 = enters airway/above vocal folds/ejected 3 = enters airway/above vocal folds/not ejected 4 = enters airway/contacts vocal folds/ejected 5 = enters airway/contacts vocal folds/not ejected 6 = enters airway/below vocal folds/ejected 7 = enters airway/below vocal folds/not ejected despite effort 8 = enters airway/below vocal folds/no effort VIDEOFLOROSCOPIC SCALE SCORE (BUI): Grade I = aspiration of material that has penetrated into the laryngeal vestibule, intact cough reflex Grade II = aspiration < 10 % of the bolus, intact cough reflex Grade III = aspiration of < 10 % of the bolus, reduced cough reflex or aspiration of > 10 % of the bolus, intact cough reflex Grade IV = aspiration of > 10 % of the bolus, reduced cough reflex Penetration-Aspiration Scale Score Thin Liquid via teaspoon: Result: 8= enters airway/below vocal folds/no effort Thin Liquid via teaspoon Trial 2: Result: 8= enters airway/below vocal folds/no effort [place] Thick Liquid via teaspoon: Result: 8= enters airway/below vocal folds/no effort [place] Thick Liquid via teaspoon Trial 2: Result: 8= enters airway/below vocal folds/no effort Honey Thick Liquid via teaspoon: Result: 3= enters airways/above vocal folds/not ejected Honey Thick Liquid via teaspoon Trial 2: Result: 3= enters airways/above vocal folds/not ejected Honey Thick Liquid via teaspoon Trial 3: Result: 8= enters airway/below vocal folds/no effort Pudding: Result: 2= enter airway/above vocal folds/ejected Oral Phase Labial Seal: No Labial Escape Tongue Control During Bolus Hold: Posterior escape of greater than half of bolus Bolus Transport/Lingual Motion: Delayed initiation of tongue motion Oral Residue: Residue collection on oral structures Pharyngeal Phase Initiation of Pharyngeal Swallow: Bolus head in pyriforms Soft Palate Elevation: No bolus between soft palate and pharyngeal wall Laryngeal Elevation: Min superior movement thyroid cart/min apprx aryte cart- epig petiole Anterior Hyoid Excursion: Partial anterior movement Epiglottic Movement: Partial inversion Laryngeal Vestibule Closure at Height of Swallow: Incomplete; narrow column of air/contrast in laryngeal vestibule Pharyngeal Stripping Wave: Present - diminished Pharyngoesophageal Segment Opening: Complete distension and complete duration; no obstruction of flow Tongue Base Retraction: Wide column of contrast between tongue base & post. pharyngeal wall Pharyngeal Residue: Collection of residue within or on pharyngeal structures Treatment Strategies Effects of treatment strategies attemped:: cough and re-swallow = not effective Diagnosis/Impression Diagnosis: severe oropharyngeal dysphagia R13.12 Impression: Pt. presents w/ severe oropharyngeal dysphagia. Oral phase primarily marked by... - poor bolus control w/ premature spillage contributing to poor bolus location upon swallow onset. - oral residue observed as pt. took 2-3 swallows per PO trial to clear. - given significance of dysphagia/ silent aspiration, did not trial cookie. Pharyngeal phase primarily marked by... - delayed pharyngeal swallow onset timing resulting in suboptimal bolus location resulting in pre-prandial and prandial SILENT aspiration. - reduced closure of airway attributed to reduced laryngeal elevation, reduced anterior hyoid excursion, reduced epiglottic inversion. - laryngeal penetration which did not fully eject observed w/ honey thick liquid trials. ROLL GRINDER OPERATOR cued pt. to cough, however cough is weak and ineffective in ejecting laryngeal penetration. - silent aspiration observed w/ thin liquids, nectar thick liquids and honey thick liquids. - poor pharyngeal motility w/ barium residue in the vallecula after the swallow attributed to wide tongue base and diminished pharyngeal stripping wave. High risk for post-prandial aspiration of pharyngeal residues. Recommendations Diet: NPO (Pt. should be considered for alternative means of primary nutrition and hydration given significance of oropharyngeal dysphagia and aspiration risk. ) Comment: Would consider implementation of the [place] Free Water Protocol (FFWP) following patient, family and caregiver education. Recommend Repeat Modified Barium Swallow: Yes (Would strongly discourage advancement to a PO diet without completion of a repeat modified barium swallow study due to the extent of aspiration identified that was SILENT in nature.) Need for Skilled Speech Therapy Services: Yes Education Completed: 1. Described result of evaluation. Status Active ST Patient: Active Contact Information [facility] Speech Therapy:: Shandra Lerner M.A. [facility]-ROLL GRINDER OPERATOR Speech-Language Pathologist [place] [address] [place] [address] [email or web address] [phone]
--- NOTE | 2024-02-09 10:41 | CASEMGMT ---
Discharge Planning Updates sent to [place] via [facility]. Wknd phone/fax obtained. Lynda Quigley DC Planning Asst.
[2024-02-09] MEDS: 0.9% Saline Lock 10 ML Syringe IV ×3 (11:25→16:50)
[2024-02-09 11:53] LABS: Bedside Glucose 182 mg/dL (74-106)
--- NOTE | 2024-02-09 13:20 | CASEMGMT ---
Social Work SW spoke w/physician, pt not ready today for discharge. Green sheet placed on chart in anticipation of weekend discharge. LEOBARDO Lee
--- NOTE | 2024-02-09 15:16 | CHAPLAIN ---
Type of Pastoral Visit _x__ Initial Visit ___ Follow-up Visit ___ On-call Visit ___ General Patient Visit ___ Spiritual Assessment ___ Family Conference ___ Bereavement ___ Rapid Response ___ Code Blue ___ Other (describe below) Pastoral Care Referral From _x__ Patient ___ Family ___ Nurse ___ Physician ___ Farmworker General ___ Carbonation Equipment Operator ___ Other (describe below) Sacrament/Intervention _x__ Active listening ___ Anointing ___ Jain ___ Bereavement ___ Communion ___ Anny exploration ___ ___ Life review _x__ Prayer ___ Reconciliation ___ Sacrament of Sick _x__ Supportive presence ___ Wedding ___ Other (describe below) Pastoral Comments patient is sitting in chair; spouse is in the room and is more interactive with this blaster helper; pt answers questions slowly and without affect; pt says that he is doing okay and does not need anything; both are welcoming however of a prayer and the patient says thank you; offer of support to the spouse who appears to be more emotional and concerned; spouse agrees that this is hard experience for her, that she does have a sister that is with her and helpful, that they appreciate the prayers; affirming feelings and thoughts of the spouse
[2024-02-09] MEDS: Insulin Lispro 100 UNIT/ML INSULN.PEN SC ×2 (16:49→21:49)
[2024-02-09 17:54] LABS: Bedside Glucose 208 mg/dL (74-106)
--- NOTE | 2024-02-09 18:50 | EX.PCM.PN.GI ---
Subjective Subjective Patient is eating without any problems. He was identified as having possible aspiration pneumonia versus community-acquired pneumonia and is on antibiotics at this time. He denies any chest pain or shortness of breath. History is limited secondary to his dementia. Objective Data Objective Data Vital Signs: Vital Signs Temp Pulse Resp BP Pulse Ox O2 Del Method O2 Flow Rate 97.7 F L 85 16 135/70 H 99 Room Air 2 02/09/24 15:37 02/09/24 15:37 02/09/24 15:37 02/09/24 15:37 02/09/24 15:37 02/09/24 15:37 02/08/24 08:00 FiO2 30 02/08/24 06:00 Oxygen Flow Rate (L/min) 2 Oxygen Delivery Method Room Air Weight: 139 lb 15.896 oz Body Mass Index (BMI) 21.2 Intake & Output: Intake and Output for Last 24 Hours 02/07/24 02/08/24 02/09/24 23:59 23:59 23:59 Intake Total 889.39 / 1004.09 786.15 / 786.15 473.75 / 473.75 Output Total 400 / 425 875 / 875 200 / 200 Balance 489.39 / 579.09 -88.85 / -88.85 273.75 / 273.75 Lab / Micro Data 02/08/24 04:00 02/08/24 04:00 Labs: Laboratory Results - last 24 hr 02/08/24 20:58: POC Glucose 159 H 02/09/24 07:43: POC Glucose 140 H 02/09/24 11:30: POC Glucose 182 H 02/09/24 16:41: POC Glucose 208 H Micro: Microbiology 02/07/24 13:57 Sputum, Tracheal Aspirate Gram Stain - Final 02/07/24 13:57 Sputum, Tracheal Aspirate Respiratory Culture - Final Mixed normal respiratory annette. No Streptococcus pneumoniae, beta-hemolytic Streptococcus or Staphylococcus aureus isolated. Physical Exam Const alert and no apparent distress Constitutional Narrative: confused. non-toxic. Resp normal respiratory effort and no retractions Resp Narrative: bibasilar crackles. Cardio regular rate, regular rhythm, S1 normal heart sound and S2 normal heart sound GI normal to inspection, nondistended, normoactive bowel sounds, soft to palpation, non-tender and non-distended Extremity normal to inspection and full ROM Neuro Sensorium / Orientation: awake and alert Assessment & Plan Assessment/Plan (1) Parkinson's disease dementia: QUALIFIERS: Qualified Code(s): F02.80 - Dementia in other diseases classified elsewhere without behavioral disturbance PLAN: Plan 78-year-old man with history of Parkinson's disease, type 2 diabetes, edentulous uses dentures, dementia, was brought to the ED with concerns regarding esophageal food impaction. He has associated acute on chronic respiratory failure which could be because of aspiration pneumonitis. Evaluation after endotracheal intubation showed no tracheal food aspiration. Esophageal food impaction: -Findings: Food was found in the upper third of the esophagus. Removal was accomplished with a Ordonez net. Verification of patient identification for the specimen was done by the physician. Estimated blood loss was minimal. A severe Schatzki ring was found in the upper third of the esophagus. A guidewire was placed and the scope was withdrawn. Dilation was performed with a Savary dilator with no resistance at 42 Fr. The dilation site was examined and showed moderate mucosal disruption. Estimated blood loss was minimal. Biopsies were taken with a cold forceps for histology. Verification of patient identification for the specimen was done. Estimated blood loss was minimal. A non-obstructing Schatzki ring was found in the lower third of the esophagus. A medium-sized hiatal hernia was present. The cardia and gastric fundus were normal on retroflexion. No gross lesions were noted in the duodenal bulb. Impression: - Food in the upper third of the esophagus. Removal was successful. - Severe Schatzki ring. Dilated. Biopsied. - Non-obstructing Schatzki ring. - Medium-sized hiatal hernia. - No gross lesions in the duodenal bulb. Recommendation: -Omeprazole 40 mg twice daily for 8 weeks and repeat upper endoscopy in 8 weeks - Advance diet as tolerated - Continue present medications. - Await pathology results. 02/09/2024-patient continues to to do well. He is tolerating a diet without any signs or symptoms of dysphagia. Pathology from the biopsies from his esophageal ring did not show any signs of cancer, fungal organisms, ulceration or dysplasia. Continue PPI therapy repeat upper endoscopy in 8 weeks for further dilation. Charges/Coding Visit Charges Inpatient E&M: 42884 Subs Hosp L3
[2024-02-09] MEDS: Atorvastatin Calcium 10 MG Tablet PO (21:39)
[2024-02-09] MEDS: Tamsulosin HCl 0.4 MG Capsule PO (21:39)
[2024-02-09] MEDS: Donepezil HCl 10 MG Tablet PO (21:39)
[2024-02-09 22:43] LABS: Bedside Glucose 236 mg/dL (74-106)
[2024-02-10] MEDS: Ampicillin/Sulbactam 3 GM in 0.9% Normal Saline (100mL MB+) 100 ML IV ×3 (00:21→11:35)
[2024-02-10 03:00] VITALS: BP 120/58; PULSE 75; RESP 18; TEMP 35.7
[2024-02-10 03:37] VITALS: BP 120/58; PULSE 75; RESP 18; TEMP 35.7; O2SAT 94
[2024-02-10] MEDS: Insulin Lispro 100 UNIT/ML INSULN.PEN SC ×3 (03:52→11:35)
[2024-02-10 04:16] LABS: Bedside Glucose 210 mg/dL (74-106)
[2024-02-10 05:43] LABS: Absolute Neutrophil Count 7.6 X10^3/uL (2.0-7.7); Basophil# 0.02 X10^3/uL; Basophil% 0.2 % (0-1); Eosinophil# 0.18 X10^3/uL; Eosinophils% 1.8 % (0-5); Hematocrit 33.9 % (40-54); Lymphocyte % 11.2 % (19-41); Mean Corp Hgb Conc 32.4 g/dL (32-36); Mean Corpuscular Hgb 30.8 pg (27.0-32.0); Mean Platelet Vol. 10.7 fl (6.2-12.0); Monocyte# 0.88 X10^3/uL; Monocyte% 8.9 % (0-10); NRBC Flagged by Analyzer 0 % (0-5); Neutrophil % 77.2 % (47-70); Platelet Count 182 K/mm3 (150-450); RBC Distribution Width CV 12.4 % (11.6-14.6); RBC Distribution Width SD 43.5 fl (35.1-43.9); Red Blood Count 3.57 M/mm3 (4.6-6.2); White Blood Count 9.9 K/mm3 (4.4-11.0)
[2024-02-10 06:00] VITALS: BMI 20.9
[2024-02-10 06:18] LABS: Anion Gap 8 (5-15); BUN 20 mg/dL (7-18); BUN/Creat Ratio 22.9 RATIO (10-20); Calcium,Total 9.1 mg/dL (8.5-10.1); Chloride 106 mmol/L (98-107); Creatinine, Serum 0.87 mg/dL (0.70-1.30); EST Glomerular Filtration Rate 90 mL/min (>60); Est Glom Filt Rate - Afr Amer 109 mL/min (>60); Estimated Creatinine Clearance 63.86 ml/min; Glucose 231 mg/dL (74-106); Potassium 3.7 mmol/L (3.5-5.1); Sodium Level 138 mmol/L (136-145)
[2024-02-10 06:58] LABS: Bedside Glucose 194 mg/dL (74-106)
[2024-02-10 07:46] VITALS: O2SAT 97
[2024-02-10 08:46] VITALS: BP 105/56; PULSE 67; RESP 18; TEMP 36.6; O2SAT 97
[2024-02-10] MEDS: Escitalopram Oxalate 20 MG Tablet PO (08:46)
[2024-02-10] MEDS: 0.9% Saline Lock 10 ML Syringe IV (08:47)
[2024-02-10] MEDS: Ciprofloxacin 500 MG Tablet PO (08:47)
[2024-02-10] MEDS: Carbidopa/Levodopa 25/100 Tablet PO ×2 (08:47→11:38)
[2024-02-10] MEDS: Enoxaparin 40 MG/0.4 ML Syringe SC (08:47)
--- NOTE | 2024-02-10 10:43 | PCM.TXEXTCAR ---
Diet Diet Order/Speech Therapy: 02/09/24 13:41 Diet: Regular - General Food consistency:: Pureed Liquid Consistency:: Regular/Thin Is pt able to select menu?: Yes Routine Orders/Code Status Routine Lab Work: CBC and BMP Code Status: DNRCC-A Wound(s) Base of penis glans: Wound Type: Surgical Incision Therapies Physical Therapy: Eval and Treat Occupational Therapy: Eval and Treat Speech Therapy: Eval and Treat Problem/Diagnosis (1) Parkinson's disease dementia: Status: Chronic Code(s): G20 - Parkinson's disease; F02.80 - Dementia in other diseases classified elsewhere, unspecified severity, without behavioral disturbance, psychotic disturbance, mood disturbance, and anxiety Allergies/Procedures Done in Hospital Allergies codeine Adverse Reaction (Verified 02/02/24 07:30) Nausea/Vom/Diarrhea Type of Care/Length of Stay Estimated LOS: More Than 30 Days Type of Care Needed: Skilled Rehab Potential: Fair Prognosis: Fair Additional Orders/Day of Discharge Day of Discharge: 02/10/24 Dietary and Speech Recommendations Dietitian Recommendations/Changes: ADAT to CCD diet with texture/consistency per JEWELRY ENAMELER when medically able to manage blood sugars and swallowing difficulties. Pureed foods with thin liquids Discharge Plan Admission Admit Date/Time: 02/07/24 16:57 Attending Provider: Milton Marley Primary Care Provider: Pawel Myers Consulting Providers: Cuca Patel; Jose Thakkar Discharge Orders/Prescriptions Prescriptions: New omeprazole 40 mg capsule,delayed release(DR/EC) 40 mg PO BID 56 Days Qty: 112 0RF amoxicillin-pot clavulanate 875-125 mg tablet 1 tab PO BID Qty: 7 0RF Continued donepezil [Aricept] 10 mg tablet 10 mg PO QHS carbidopa-levodopa 25MG-10 tablet extended release 1 tab PO TID atorvastatin 10 MG tablet 10 mg PO QHS cholecalciferol (vitamin D3) 1,000 UNIT tablet 5,000 unit PO DAILY acidophilus-pectin, citrus 1 TABLET tablet 1 tab PO DAILY 0RF multivitamin Tablet 1 tab PO DAILY magnesium hydroxide [Dulcolax (magnesium hydroxide)] 400 mg/5 mL suspension 30 ml PO DAILY PRN (Reason: constipation) Rx Instructions: if no BM in 3 days escitalopram oxalate 20 mg tablet 20 mg PO DAILY bisacodyl 10 mg suppository 10 mg OK DAILY PRN (Reason: constipation) Rx Instructions: if no BM w/n 8 hours of MOM metformin 500 mg tablet 500 mg PO BID tamsulosin 0.4 mg capsule 0.4 mg PO QHS Discontinued ciprofloxacin HCl [Cipro] 500 mg tablet 500 mg PO BID Qty: 10 0RF Referrals / Follow Up: Pawel Myers MD [Primary Care Provider] - Disposition Disposition (needs filled in before D/C Order can be placed): [facility] ([facility]) Parkinson's disease dementia Qualifiers: Qualified Code(s): F02.80 - Dementia in other diseases classified elsewhere without behavioral disturbance
--- NOTE | 2024-02-10 11:58 | NURSING ---
Attempted to call report to [facility]; no one was available to answer the phone. This RN will try again later.
[2024-02-10 12:06] LABS: Bedside Glucose 184 mg/dL (74-106)
[2024-02-10 12:30] VITALS: BP 116/83; PULSE 90; RESP 18; TEMP 36.6; O2SAT 97
--- NOTE | 2024-02-10 13:37 | PCM.DC.SUM ---
Providers Date of Admission: 02/07/24 Primary Care Physician: Dr. Pawel Myers MD Consultations 02/07/24 17:31 Consult: Gastroenterology Routine Consulting Provider: Liset Gastroenterfelix Reason for Consult: Food impaction EMERGENT Consult: Yes MD Notified: Yes Date Notified: 02/07/24 Time Notified: 17:02 Method of Notification: ED Physician Initiated 02/08/24 06:28 Consult: Inspector And Sorter / Pulmonary Medicine Routine Consulting Provider: Intensivists/Pulmonary Med Reason for Consult: Intubation EMERGENT Consult: No MD Notified: Yes Date Notified: 02/08/24 Time Notified: 06:28 Method of Notification: Verbal Reason For Visit: FOOD IMPACTION Diagnosis Discharge Diagnosis (1) Parkinson's disease dementia: Status: Chronic Code(s): G20 - Parkinson's disease; F02.80 - Dementia in other diseases classified elsewhere, unspecified severity, without behavioral disturbance, psychotic disturbance, mood disturbance, and anxiety Qualifiers: Qualified Code(s): F02.80 - Dementia in other diseases classified elsewhere without behavioral disturbance Medications at Discharge Home Medications donepezil 10 mg tablet (Aricept) 10 mg PO QHS memory 06/26/18 atorvastatin 10 mg tablet 10 mg PO QHS cholesterol 08/26/19 carbidopa ER 25 mg-levodopa 100 mg tablet,extended release 1 tab PO TID parkinsons 08/26/19 cholecalciferol (vitamin D3) 25 mcg (1,000 unit) tablet 5,000 unit PO DAILY supplement 08/26/19 acidophilus 25 million cell-pectin, citrus 100 mg tablet 1 tab PO DAILY 09/11/19 multivitamin 1 tab PO DAILY 06/16/23 metformin 500 mg tablet 500 mg PO BID 01/18/24 tamsulosin 0.4 mg capsule 0.4 mg PO QHS 01/18/24 bisacodyl 10 mg rectal suppository 10 mg MA DAILY PRN constipation 02/07/24 escitalopram oxalate 20 mg tablet 20 mg PO DAILY 02/07/24 magnesium hydroxide 400 mg/5 mL oral suspension (Dulcolax (magnesium hydroxide)) 30 ml PO DAILY PRN constipation 02/07/24 amoxicillin 875 mg-potassium clavulanate 125 mg tablet 1 tab PO BID #7 tabs 02/10/24 omeprazole 40 mg capsule,delayed release 40 mg PO BID 8 weeks #112 caps 02/10/24 Hospital Course Operations None Procedures EGD and Intubation Summary of Care Provided Minutes Spent on Discharge: 37 Hospital Course: Per HPI: JODIE AMAYA, is a 78 M with history of Parkinson's disease, type 2 diabetes mellitus on insulin and metformin, dementia, generalized weakness, hypertension, was brought to the ED with concerns regarding food aspiration/impaction while eating a piece of pork stirfry this morning. He was accompanied by his and [id number], while eating lunch they noted that he became suddenly distressed and started choking and drooling. EMS was called for the same and he was brought to the hospital. While evaluation in the ED was also hypoxic and there were concerns regarding tracheal aspiration. Due to this he underwent rapid sequence intubation and evaluation. No food bolus was noted using the laryngoscope. On CT imaging there are concerns regarding an esophageal food bolus. Gastroenterology has been consulted from the ED and they plan to do an urgent upper endoscopy for disimpaction today. Given his intubation and mechanical ventilation, he has been transferred to the ICU for further monitoring and management. Hospital Course: 1. Acute hypoxic respiratory failure secondary to acute aspiration in the setting of chronic dysphagia and esophageal impaction?89-year-old male [facility] after he choked on a piece of pork stirfry. Because of his hypoxic respiratory failure and his respiratory distress on arrival to the ER he was intubated and taken for EGD where the food was removed. He was extubated the next day 02/08/2024 and has done well since. Had a modified barium swallow on 02/09/2024 that showed aspiration with all food consistencies and speech felt that he should be n.p.o. however the family did not want a PEG tube and recognizes the risks of continued aspiration therefore speech therapy recommended a pur?ed diet as well as thin liquids. Since he has had 24 hours of continued improvement we will plan for discharge back to SNF today. Currently doing well on room air with normal lab work. Will continue with Augmentin for couple of days to to complete course for aspiration as he has been on antibiotics since admission. 2. Parkinson's disease with dementia, type 2 diabetes, hyperlipidemia, anxiety, depression, BPH are all chronic medical conditions which complicate his care. His home medications were continued where appropriate Weight / BMI Weight Weight: 137 lb 9.095 oz Body Mass Index (BMI) 20.9 ABG / Lab / Microbiology Data 02/10/24 04:52 02/10/24 04:52 Laboratory: Laboratory Results - last 24 hr 02/09/24 16:41: POC Glucose 208 H 02/09/24 21:47: POC Glucose 236 H 02/10/24 03:50: POC Glucose 210 H 02/10/24 04:52: WBC 9.9, RBC 3.57 L, Hgb 11.0 L, Hct 33.9 L, MCV 95.0 H, MCH 30.8, MCHC 32.4, RDW Std Deviation 43.5, RDW Coeff of Christie 12.4, Plt Count 182, MPV 10.7, Immature Gran % (Auto) 0.700, Neut % (Auto) 77.2 H, Lymph % (Auto) 11.2 L, Potter % (Auto) 8.9, Eos % (Auto) 1.8, Baso % (Auto) 0.2, Absolute Neuts (auto) 7.6, Absolute Lymphs (auto) 1.10, Nucleated RBC % 0, Sodium 138, Potassium 3.7, Chloride 106, Carbon Dioxide 24.0, Anion Gap 8, BUN 20 H, Creatinine 0.87, Estim Creat Clear Calc 63.86, Est GFR (MDRD) Af Amer 109, Est GFR (MDRD) Non-Af 90, BUN/Creatinine Ratio 22.9 H, Glucose 231 H, Calcium 9.1 02/10/24 06:26: POC Glucose 194 H 02/10/24 11:34: POC Glucose 184 H Microbiology: Microbiology 02/07/24 13:57 Sputum, Tracheal Aspirate Gram Stain - Final 02/07/24 13:57 Sputum, Tracheal Aspirate Respiratory Culture - Final Mixed normal respiratory annette. No Streptococcus pneumoniae, beta-hemolytic Streptococcus or Staphylococcus aureus isolated. Meaningful Use Info Meaningful Use Meaningful Use Diagnoses (Choose all that apply): None applicable Ischemic Stroke Statin Dosing Therapy Reference: STATIN DOSE THERAPY REFERENCE: * Patients > 75 years receive moderate or high dose statin therapy. * Patients 75 years or YOUNGER should receive HIGH intensity statin dose unless contraindicated. You will be required to document reason for non-treatment if statin daily dose does not meet guidelines. HIGH DOSE STATIN THERAPY DAILY Atorvastatin > than or = to 40 mg Rosuvastatin > than or = to 20 mg Amlodipine + Atorvastatin > than or = to 2.5/40 mg Ezetimibe + Simvastatin 10/80 mg Simvastatin 80mg Discharge Plan Admission Admit Date/Time: 02/07/24 16:57 Attending Provider: Milton Marley Primary Care Provider: Pawel Myers Consulting Providers: Cuca Patel; Jose Thakkar Discharge Orders/Prescriptions Prescriptions: New omeprazole 40 mg capsule,delayed release(DR/EC) 40 mg PO BID 56 Days Qty: 112 0RF amoxicillin-pot clavulanate 875-125 mg tablet 1 tab PO BID Qty: 7 0RF Continued donepezil [Aricept] 10 mg tablet 10 mg PO QHS carbidopa-levodopa 25MG-10 tablet extended release 1 tab PO TID atorvastatin 10 MG tablet 10 mg PO QHS cholecalciferol (vitamin D3) 1,000 UNIT tablet 5,000 unit PO DAILY acidophilus-pectin, citrus 1 TABLET tablet 1 tab PO DAILY 0RF multivitamin Tablet 1 tab PO DAILY magnesium hydroxide [Dulcolax (magnesium hydroxide)] 400 mg/5 mL suspension 30 ml PO DAILY PRN (Reason: constipation) Rx Instructions: if no BM in 3 days escitalopram oxalate 20 mg tablet 20 mg PO DAILY bisacodyl 10 mg suppository 10 mg MA DAILY PRN (Reason: constipation) Rx Instructions: if no BM w/n 8 hours of MOM metformin 500 mg tablet 500 mg PO BID tamsulosin 0.4 mg capsule 0.4 mg PO QHS Discontinued ciprofloxacin HCl [Cipro] 500 mg tablet 500 mg PO BID Qty: 10 0RF Referrals / Follow Up: Pawel Myers MD [Primary Care Provider] - Disposition Disposition (needs filled in before D/C Order can be placed): Residential Facility Charges/Coding Visit Charges Inpatient E&M: 77027 Disch Hosp >30min
== END 2024-02-10 12:30 | disposition skilled nursing facility (03) | DRG 393 ==
LOC: ED 16:13 → ICU 16:44 → PCU 02-09 09:29
PROVIDERS: Internal Medicine Gastroenterology; Admitting Provider Internal Medicine; Emergency Provider Emergency Medicine; PCP Family Medicine; Visit Provider Family Medicine
PROC: 0DJ08ZZ Inspection of Upper Intestinal Tract, Via Natural or Artificial Opening Endoscopic (ICD-10-PCS; CPT 43235; principal; 2024-02-07 18:20)
DX: T18.120A Food in esophagus causing compression of trachea, initial encounter (principal); J69.0 Pneumonitis due to inhalation of food and vomit; J96.01 Acute respiratory failure with hypoxia; F02.80 Dementia in other diseases classified elsewhere, unspecified severity, without behavioral disturbance, psychotic disturbance, mood disturbance, and anxiety; E11.9 Type 2 diabetes mellitus without complications; G31.83 Neurocognitive disorder with Lewy bodies; G20.A1 Parkinson's disease without dyskinesia, without mention of fluctuations; I10 Essential (primary) hypertension; F32.A Depression, unspecified; K22.2 Esophageal obstruction; E78.00 Pure hypercholesterolemia, unspecified; K44.9 Diaphragmatic hernia without obstruction or gangrene; K20.0 Eosinophilic esophagitis; F41.9 Anxiety disorder, unspecified; Z79.84 Long term (current) use of oral hypoglycemic drugs; R13.10 Dysphagia, unspecified; Z87.891 Personal history of nicotine dependence; N40.0 Benign prostatic hyperplasia without lower urinary tract symptoms; W44.F3XA Food entering into or through a natural orifice, initial encounter
CPT/HCPCS: 31500; 31720; 36415; 36600; 51702; 71045; 71250; 74230; 80048; 80053; 81001; 82248; 82550; 82803; 82962; 83735; 84100; 84443; 84478; 84484; 85025; 85610; 87070; 87205; 88305; 92526; 92610; 92611; 93005; 94002; 94003; 94660; 94668; 94762; 97110; 97162; 97166; 97530; 97535; 99252; 99285; J7030; J7040; J7050; A4216; G0463; J0295; J2405

== ENCOUNTER 2024-02-24 06:57 | Inpatient (IN) | payer MEDICARE, OTHER, MEDICAID, SELFPAY ==
[2024-02-24] VITALS (15 sets, daily range): BP systolic 119–145; BP diastolic 65–88; PULSE 74–84; RESP 10–18; TEMP 35.8–37.4; O2SAT 95–99; BMI 21.4; BMI 20.3
--- NOTE | 2024-02-24 07:13 | CT_ITS ---
EXAM: CT CERVICAL SPINE WITHOUT INTRAVENOUS CONTRAST CLINICAL INDICATION: injury TECHNIQUE: Helically acquired images were obtained of the cervical spine without intravenous contrast. 2D reformatted images were reviewed. This CT exam was performed using one or more of the following dose reduction techniques: automated exposure control, adjustment of the mA and/or kV according to patient size, and/or use of iterative reconstruction technique. RADIATION DOSE: CTDIvol = 16.05 mGy, DLP = 377.88 mGy-cm COMPARISON: No relevant prior studies available. FINDINGS: VERTEBRAE: Minimal degenerative anterolisthesis of C4 on C5. Normal vertebral body heights. No lytic or blastic lesions. DISCS/SPINAL CANAL/NEURAL FORAMINA: Pronounced disc space height narrowing at C5-C6 and C6-C7 disc space levels. Mild disc space height narrowing. Remainder of the cervical spine. Moderate left C3-C4 and left C4-C5 degenerative facet arthropathy. SOFT TISSUES: Unremarkable. No prevertebral soft tissue swelling. LYMPH NODES: Unremarkable. No cervical adenopathy. LUNG APICES: Minimal bilateral apical pleural scarring.. CT/Spine Cervical without Contras IMPRESSION: 1. No CT evidence of acute fractures in the cervical spine, craniocervical junction and cervicothoracic junction. 2. Minimal degenerative anterolisthesis of C4 on C5. 3. Moderate left C3-C4 and left C4-5 degenerative facet arthropathy. 4. Prominent calcified plaques in both carotid bulbs. Electronically Signed: Frandy Montague MD at 8:34 EDT ,
--- NOTE | 2024-02-24 07:13 | CT_ITS ---
EXAM: CT HEAD WITHOUT INTRAVENOUS CONTRAST CLINICAL INDICATION: injury TECHNIQUE: Multiple axial images were obtained of the head without intravenous contrast. This CT exam was performed using one or more of the following dose reduction techniques: automated exposure control, adjustment of the mA and/or kV according to patient size, and/or use of iterative reconstruction technique. RADIATION DOSE: CTDIvol = 44.99 mGy, DLP = 812.98 mGy-cm COMPARISON: No relevant prior studies available. FINDINGS: BRAIN AND EXTRA-AXIAL SPACES: Hypodensities in the anterior end posterior periventricular white matter are chronic white matter ischemic changes. No intra- or extra-axial hemorrhage. No intracranial mass or mass effect. Posterior fossa structures are unremarkable. No hydrocephalus. Basal cisterns are patent. BONES/JOINTS: Unremarkable. No discrete lytic or blastic abnormalities. SINUSES: Unremarkable as visualized. Clear. MASTOID AIR CELLS: Unremarkable. Clear. ORBITS: Visualized globes, extraocular muscles, optic nerves and retrobulbar fat appear unremarkable. CT/Brain/Head without Contrast IMPRESSION: 1. No CT evidence of intracranial bleeding, acute ischemic infarct or acute intracranial abnormality. 2. Hypodensities in the anterior end posterior periventricular white matter are chronic white matter ischemic changes. Electronically Signed: Frandy Montague MD at 8:24 EDT ,
--- NOTE | 2024-02-24 07:14 | EKG12_ITS ---
Test Reason : FALL Blood Pressure : / mmHG Vent. Rate : 079 BPM Atrial Rate : 079 BPM P-R Int : 154 ms QRS Dur : 068 ms QT Int : 378 ms P-R-T Axes : 002 037 -02 degrees QTc Int : 433 ms Normal sinus rhythm Nonspecific ST abnormality Abnormal ECG Confirmed by Scott Humphrey ([id number]), greeting card editor LASHELL SUAZO ([id number]) on 02/26/2024 8:17:33 AM Referred By: Confirmed By:Scott Humphrey
--- NOTE | 2024-02-24 07:17 | ED.VIS.FALL ---
HPI HPI - Fall History of Present Illness Chief Complaint: Fall Informant: patient, EMS and SNF Narrative Narrative: 78-year-old male presenting to the emergency room following a unwitnessed fall. Patient is currently at SNF. He has Parkinson's. He does not remember what happened in the fall. He states that his only pain is in the left hip. He states he did not hurt his back neck or head. Per group home report he is not on any blood thinners. He has a history of diabetes hypertension hyperlipidemia Parkinson's BPH. [facility] Medical History Male circumcision Walker as ambulation aid Prostate disease Anemia Back pain Shortness of breath on exertion History of edema Wears dentures Wears glasses Diabetes High cholesterol History of diverticulitis Former smoker Anxiety Depression History of dementia Parkinsons disease Callus of foot Diarrhea Diabetes mellitus type 2 in nonobese Hypertension Home Medications ?Medication ?Instructions ?Recorded ?Last Taken ?Type donepezil 10 mg tablet (Aricept) 10 mg PO QHS memory 06/26/18 02/01/24 History atorvastatin 10 mg tablet 10 mg PO QHS cholesterol 08/26/19 02/01/24 History carbidopa ER 25 mg-levodopa 100 mg 1 tab PO TID parkinsons 08/26/19 02/02/24 History tablet,extended release cholecalciferol (vitamin D3) 25 5,000 unit PO DAILY supplement 08/26/19 06/22/23 History mcg (1,000 unit) tablet acidophilus 25 million 1 tab PO DAILY 09/11/19 02/01/24 Rx cell-pectin, citrus 100 mg tablet multivitamin 1 tab PO DAILY 06/16/23 02/01/24 History metformin 500 mg tablet 500 mg PO BID 01/18/24 02/01/24 History bisacodyl 10 mg rectal suppository 10 mg MN DAILY PRN constipation 02/07/24 Unknown History escitalopram oxalate 20 mg tablet 20 mg PO DAILY 02/07/24 Unknown History magnesium hydroxide 400 mg/5 mL 30 ml PO DAILY PRN constipation 02/07/24 Unknown History oral suspension (Dulcolax (magnesium hydroxide)) pantoprazole 40 mg tablet,delayed 40 mg PO BID 02/24/24 Unknown History release Allergy/AdvReac Type Severity Reaction Status Date / Time codeine AdvReac Nausea/Vom/ Verified 02/24/24 06:58 Diarrhea Family History Father Hypertension Heart disease Surgical History H/O transurethral resection of prostate Hx of foot surgery Hx of colonoscopy s/p stomach surgery Social History Smoking Status: Former smoker alcohol intake: never ROS ROS ED Review of Systems ROS Unobtainable: due to mental status EXAM Physical Exam Narrative Exam Narrative: No appreciable outward signs of trauma at this time. Const Vital Signs: 02/24/24 06:58 02/24/24 06:58 Temperature 96.5 F L Temperature Source Temporal Pulse Rate 82 Respiratory Rate 18 Respiratory Effort Normal Respiratory Depth Normal Respiratory Pattern Normal Blood Pressure 142/75 H Blood Pressure Mean 97 Pulse Ox 99 Oxygen Delivery Method Room Air Room Air Positive well nourished and well developed General Appearance ED: well developed and NAD HEENT Reports normocephalic, head/scalp atraumatic and moist mucous membranes Eyes PERRL and EOMs intact bilaterally Neck full ROM, no lymphadenopathy, supple and no JVD Resp normal respiratory effort and clear to auscultation bilaterally Cardio regular rate, regular rhythm and no murmurs GI normal to inspection, nondistended, normoactive bowel sounds and non-tender Palpation: soft Back/Spine no CVA tenderness and normal ROM Back/Spine Narrative: Patient does not complain of any pain or winces when I palpate the posterior thoracic and lumbar regions Extremity Extremity Narrative: Patient has tenderness to palpation over the left hip particularly in the inguinal region. Positive logroll. No significant shortening noted. Pelvis appears stable. General Extremety ED: Negative for edema General Extremity: Negative for edema Neuro CN's II-XII intact bilaterally Sensorium / Orientation: alert and oriented to person; Negative for oriented to place or oriented to time Motor Exam: strength 5/5 throughout Psych mental status grossly normal Mood & Affect: Negative for depressed or tearful Skin no rashes or lesions noted and no wounds MDM MDM EKG Initial EKG: Attestation: I personally reviewed and interpreted this EKG as follows: Comments: Normal sinus rhythm ventricular rate of 79 bpm Discharge Plan Triage Chief Complaint: Fall ED Provider: Moustapha Novak Dx/Rx/DC Orders Prescriptions: No Action donepezil [Aricept] 10 mg tablet 10 mg PO QHS carbidopa-levodopa 25MG-10 tablet extended release 1 tab PO TID atorvastatin 10 MG tablet 10 mg PO QHS cholecalciferol (vitamin D3) 1,000 UNIT tablet 5,000 unit PO DAILY acidophilus-pectin, citrus 1 TABLET tablet 1 tab PO DAILY 0RF multivitamin Tablet 1 tab PO DAILY magnesium hydroxide [Dulcolax (magnesium hydroxide)] 400 mg/5 mL suspension 30 ml PO DAILY PRN (Reason: constipation) Rx Instructions: if no BM in 3 days escitalopram oxalate 20 mg tablet 20 mg PO DAILY bisacodyl 10 mg suppository 10 mg MN DAILY PRN (Reason: constipation) Rx Instructions: if no BM w/n 8 hours of MOM metformin 500 mg tablet 500 mg PO BID pantoprazole 40 mg tablet,delayed release (DR/EC) 40 mg PO BID Primary Care Provider: Pawel Myers Referrals: Pawel Myers MD [Primary Care Provider] - Print Language: Gibraltarian
[2024-02-24] MEDS: Ondansetron 4 MG/2 ML Vial IV (07:35)
[2024-02-24] MEDS: Morphine 4 MG/ML Syringe IV ×2 (07:35→08:59)
[2024-02-24 07:38] LABS: Absolute Lymphocyte Count 2.17 X10^3/uL (0.83-4.51); Absolute Neutrophil Count 5.1 X10^3/uL (2.0-7.7); Basophil# 0.09 X10^3/uL; Basophil% 1.1 % (0-1); Eosinophil# 0.16 X10^3/uL; Eosinophils% 1.9 % (0-5); Hematocrit 39.4 % (40-54); Hemoglobin 12.8 g/dL (13.0-16.5); Lymphocyte # 2.17 X10^3/ul (0.83-4.51); Lymphocyte % 25.7 % (19-41); Mean Corp Hgb Conc 32.5 g/dL (32-36); Mean Corpuscular Hgb 30.3 pg (27.0-32.0); Mean Corpuscular Volume 93.4 fL (80-94); Mean Platelet Vol. 9.9 fl (6.2-12.0); Monocyte# 0.88 X10^3/uL; Monocyte% 10.4 % (0-10); NRBC Flagged by Analyzer 0 % (0-5); Neutrophil # 5.11 X10^3/uL (2.7-7.7); Neutrophil % 60.3 % (47-70); Platelet Count 327 K/mm3 (150-450); RBC Distribution Width CV 12.8 % (11.6-14.6); RBC Distribution Width SD 43.6 fl (35.1-43.9); Red Blood Count 4.22 M/mm3 (4.6-6.2); White Blood Count 8.5 K/mm3 (4.4-11.0)
[2024-02-24 07:49] LABS: Bacteria 0 SEEN /hpf (None Seen); Mucous, Urine 0 SEEN /hpf (<or=2+); Red Blood Cells-Urine 0 SEEN /hpf (0-5); Squamous Epithelial Cells - UA 0 SEEN /hpf (0-5)
--- NOTE | 2024-02-24 07:53 | RAD_ITS ---
EXAM: XR LEFT HIP WITH PELVIS WHEN PERFORMED, 2 OR 3 VIEWS CLINICAL INDICATION: injury TECHNIQUE: Two or three views of the left hip with pelvis when performed. COMPARISON: No relevant prior studies available. FINDINGS: BONES/JOINTS: Unremarkable. No displaced fracture. No destructive or sclerotic lesions. Note that overlapping bowel shadows may however obscure fine detail. Sacroiliac joint is unremarkable. No widening of the pubic symphysis. The articular structures are unremarkable. SOFT TISSUES: Unremarkable. No soft tissue swelling or gas. RAD/HIP, UNI W/ Pelvis 2-3 Views IMPRESSION: No obvious acute fracture or dislocation of the pelvis and left hip. CT will be more helpful for further evaluation if left hip fracture remains a strong clinical consideration. Electronically Signed: Frandy Montague MD at 8:40 EDT ,
--- NOTE | 2024-02-24 07:53 | RAD_ITS ---
EXAM: XR CHEST, 1 VIEW CLINICAL INDICATION: injury TECHNIQUE: Frontal view of the chest. COMPARISON: 02/07/2024. FINDINGS: LUNGS AND PLEURAL SPACES: Unremarkable. No consolidation or edema. No pneumothorax. No effusion. HEART: Unremarkable. Cardiac silhouette not enlarged. MEDIASTINUM: Central airways and mediastinal contour are unremarkable. BONES/JOINTS: Fracture deformity of the right posterior seventh eighth and ninth ribs. Age is indeterminate. SOFT TISSUES: Unremarkable. TUBES, LINES AND DEVICES: ET tube has been removed. UPPER ABDOMEN: Surgical clips in the epigastric region. RAD/Chest 1 View IMPRESSION: 1. No acute cardiopulmonary pathology following ET tube removal. 2. Fracture deformity of the right posterior seventh, eighth and ninth ribs. Age is indeterminate. Right rib series will help clarify if desired. Electronically Signed: Frandy Montague MD at 8:45 EDT ,
[2024-02-24 07:54] LABS: Partial Thromboplast Time 25.2 Seconds (24.1-36.2)
[2024-02-24 07:58] LABS: Color, Urine Yellow (Yellow); Glucose, Dipstick 100 mg/dl (Normal); Ketone-Dipstick Negative (Negative); Leukocyte Esterase-Dipstick 500 /ul (Negative); Nitrite-Dipstick Negative (Negative); Occult Blood-Urine 250 /ul (Negative); Protein-Dipstick 30 mg/dl (Negative); Urine Bilirubin Dipstick Negative (Negative); Urine Clarity Sl. Cloudy (Clear); Urine Urobilinogen Normal (Normal); Urine pH 6.5 (5.0 - 8.0)
[2024-02-24 07:59] LABS: AST(SGOT) 12 U/L (15-37); Alanine Aminotransfer ALT/SGPT 7 U/L (16-61); Albumin, Serum 3.5 g/dL (3.2-5.0); Alkaline Phosphatase 102 U/L (45-117); Anion Gap 5 (5-15); BUN 21 mg/dL (7-18); BUN/Creat Ratio 18.4 RATIO (10-20); Chloride 100 mmol/L (98-107); Creatinine, Serum 1.14 mg/dL (0.70-1.30); EST Glomerular Filtration Rate 66 mL/min (>60); Est Glom Filt Rate - Afr Amer 80 mL/min (>60); Estimated Creatinine Clearance 49.05 ml/min; Globulin 3.6 g/dL (2.2-4.2); Glucose 200 mg/dL (74-106); Potassium 4.7 mmol/L (3.5-5.1); Protein, Total 7.1 g/dL (6.4-8.2); Sodium Level 133 mmol/L (136-145)
[2024-02-24 08:09] LABS: White Blood Cells >100 SEEN /hpf (0-5)
--- NOTE | 2024-02-24 08:42 | CT_ITS ---
HISTORY: INJURY. TECHNIQUE: Helically acquired images were obtained of the left hip without contrast. 2-D reformats were performed by the technologist. A radiation dose optimization technique was used for this scan. 331 images. COMPARISON: CR same day. CT 09/28/2022. FINDINGS: BONES: Mildly impacted subcapital femoral neck fracture without significant displacement. No other acute fracture identified. JOINT SPACES: No dislocation. Mild degenerative changes of the left hip. SOFT TISSUES: Surrounding soft tissue swelling. POLYP CONTENTS: Sigmoid diverticulosis. Bladder calculi and trabeculation again seen. CT/Extremity Lower without Contra IMPRESSION: Mildly impacted and nondisplaced fracture of the left femoral neck. Electronically Signed: Vaishali Soto MD at 9:11 EDT ,
--- NOTE | 2024-02-24 08:49 | CT_ITS ---
EXAM: CT CHEST WITHOUT INTRAVENOUS CONTRAST CLINICAL INDICATION: INJURY TECHNIQUE: Helically acquired images were obtained of the chest without intravenous contrast. This CT exam was performed using one or more of the following dose reduction techniques: automated exposure control, adjustment of the mA and/or kV according to patient size, and/or use of iterative reconstruction technique. RADIATION DOSE: CTDIvol = 11.83 mGy, DLP = 631.11 mGy-cm COMPARISON: CT chest without contrast 02/07/2024. FINDINGS: LUNGS AND PLEURAL SPACES: Improvement of the consolidation inside the reticulation of the posterior lung bases. No mass. No suspicious pulmonary contusions. No pneumothorax. No pleural effusions. HEART: See below. MEDIASTINUM: Unremarkable. No mediastinal or hilar adenopathy. Esophagus is unremarkable. No hiatal hernia. THYROID: Unremarkable. No thyroid lesions. BONES/JOINTS: Minimal anterior wedging of the upper T8 vertebral body is from remote injury. This is unchanged.. Small cortical bone fragment anterior to the head of the left 11th rib (series 7, images [id number]). This is most likely a bone spur when correlated with coronal reconstructions (series 605, images 195-200). No suspicious acute fractures of the bony rib cage/chest. No suspicious lytic or blastic abnormality. VASCULATURE: Calcified plaques along the transverse thoracic aorta and descending thoracic aorta. Motion degradation artifacts along the mid portion of the ascending thoracic aorta. Mild dilatation of the ascending aorta with a diameter of 3.8 cm. Three-vessel coronary artery calcifications. Normal cardiac size. Normal pericardium. KIDNEYS AND URETERS: Prominent left renal cysts are simple cysts. No follow-up is necessary. CT/Chest without Contrast IMPRESSION: 1. No CT evidence of pulmonary contusion, pneumothorax or hemothorax. 2. Clearing of consolidation inside the reticulation of the posterior lung bases. 3. Bone spur overlying the head of the left 11th rib rather than fracture fragment. This is confirmed in the coronal reconstructions. 4. No suspicious acute fractures of the bony rib cage or elsewhere is in the chest. 5. Mild old anterior wedge compression fracture of the upper T8 vertebral body is unchanged. 6. Three-vessel coronary artery calcifications were present previously. 7. 2 prominent left renal cysts are simple cysts. No follow-up is necessary for these renal cysts. They are unchanged. Electronically Signed: Frandy Montague MD at 10:43 EDT ,
--- NOTE | 2024-02-24 09:43 | HP.PCM.HOS_ITS ---
HPI - General General Date of Admission: 02/24/24 Date of Service: 02/24/24 Chief Complaint: Fall and left hip pain HPI Narrative JODIE AMAYA, is a 78 M with a history of BPH, Parkinson's, dementia, GERD, type 2 diabetes, who presented to [facility] ED 02/24/2024 from [facility] facility with unwitnessed fall. Patient found to have left hip pain and CT demonstrated left hip fracture, orthopedic surgery consulted and plan for surgery 02/24. Hospitalist contacted for admission. Patient seen with family member at bedside and does not remember what happened, patient has dementia and is poor historian. Other than left hip pain denies any other pain, denies changes in bowel or bladder. ED workup did not suggest any infection or UTI. Patient admitted to [facility] Medical History Male circumcision Walker as ambulation aid Prostate disease Anemia Back pain Shortness of breath on exertion History of edema Wears dentures Wears glasses Diabetes High cholesterol History of diverticulitis Former smoker Anxiety Depression History of dementia Parkinsons disease Callus of foot Diarrhea Diabetes mellitus type 2 in nonobese Hypertension Home Medications ?Medication ?Instructions ?Recorded ?Last Taken ?Type donepezil 10 mg tablet (Aricept) 10 mg PO QHS memory 06/26/18 02/01/24 History atorvastatin 10 mg tablet 10 mg PO QHS cholesterol 08/26/19 02/01/24 History carbidopa ER 25 mg-levodopa 100 mg 1 tab PO TID parkinsons 08/26/19 02/02/24 History tablet,extended release cholecalciferol (vitamin D3) 25 5,000 unit PO DAILY supplement 08/26/19 06/22/23 History mcg (1,000 unit) tablet acidophilus 25 million 1 tab PO DAILY 09/11/19 02/01/24 Rx cell-pectin, citrus 100 mg tablet multivitamin 1 tab PO DAILY 06/16/23 02/01/24 History metformin 500 mg tablet 500 mg PO BID 01/18/24 02/01/24 History bisacodyl 10 mg rectal suppository 10 mg OK DAILY PRN constipation 02/07/24 Unknown History escitalopram oxalate 20 mg tablet 20 mg PO DAILY 02/07/24 Unknown History magnesium hydroxide 400 mg/5 mL 30 ml PO DAILY PRN constipation 02/07/24 Unknown History oral suspension (Dulcolax (magnesium hydroxide)) pantoprazole 40 mg tablet,delayed 40 mg PO BID 02/24/24 Unknown History release Allergy/AdvReac Type Severity Reaction Status Date / Time codeine AdvReac Nausea/Vom/ Verified 02/24/24 06:58 Diarrhea Family History Father Hypertension Heart disease Surgical History H/O transurethral resection of prostate Hx of foot surgery Hx of colonoscopy s/p stomach surgery Social History Smoking Status: Former smoker alcohol intake: never ROS ROS Narrative General: Denies fever/chills HENT: Denies headache, denies stuffy nose, denies sore throat EYES: Denies changes in vision Resp: Denies cough, denies shortness of breath Cardiac: Denies chest pain GI: Denies abdominal pain, denies changes in bowel, denies nausea/vomiting : Denies changes in urination Extremity: Denies swelling MSK: Denies weakness, left hip pain Neuro: Denies any numbness/tingling Heme: Denies any bleeding or bruising Skin: Denies rashes Psychiatric: No complaints voiced Vital Signs Vital Signs Vital Signs: 02/24/24 06:58 02/24/24 06:58 02/24/24 07:15 Temperature 96.5 F L Temperature Source Temporal Pulse Rate 82 Respiratory Rate 18 Respiratory Effort Normal Respiratory Depth Normal Respiratory Pattern Normal Blood Pressure 142/75 H 136/78 H Blood Pressure Mean 97 96 Pulse Ox 99 Oxygen Delivery Method Room Air Room Air 02/24/24 07:30 02/24/24 07:37 02/24/24 07:45 Temperature Temperature Source Pulse Rate 78 84 Respiratory Rate 15 12 Respiratory Effort Respiratory Depth Respiratory Pattern Blood Pressure 140/72 H 119/71 Blood Pressure Mean 91 86 Pulse Ox Oxygen Delivery Method 02/24/24 08:00 02/24/24 08:10 02/24/24 08:15 Temperature 97.8 F Temperature Source Temporal Pulse Rate 75 77 74 Respiratory Rate 18 13 10 L Respiratory Effort Respiratory Depth Respiratory Pattern Blood Pressure 135/75 H 123/88 H Blood Pressure Mean 95 99 Pulse Ox 99 99 Oxygen Delivery Method 02/24/24 08:30 02/24/24 08:45 02/24/24 08:45 Temperature Temperature Source Pulse Rate 75 75 Respiratory Rate 13 11 L Respiratory Effort Respiratory Depth Respiratory Pattern Blood Pressure 125/75 H 128/70 H 128/70 H Blood Pressure Mean 92 88 88 Pulse Ox 98 98 Oxygen Delivery Method 02/24/24 09:00 02/24/24 09:26 Temperature 98.7 F Temperature Source Pulse Rate 79 78 Respiratory Rate 12 16 Respiratory Effort Respiratory Depth Respiratory Pattern Blood Pressure 135/73 H 128/76 H Blood Pressure Mean 91 93 Pulse Ox 95 99 Oxygen Delivery Method Weight Weight: 63.9 kg Body Mass Index (BMI) 21.4 Physical Exam Narrative General: Alert, poor historian HEENT: Normocephalic Eyes: Anicteric, normal conjunctiva, extraocular movements grossly intact Neck: Supple Respiratory: Clear to auscultation bilaterally, normal respiratory effort Cardiovascular: Regular rate and rhythm GI: Soft, nontender, nondistended Extremities: No edema Musculoskeletal: Left extremity painful to move Neuro: No overt focal neurological deficits Skin: No rashes appreciated Psych: Cooperative Results Lab / Micro Data 02/24/24 07:32 02/24/24 07:32 Labs: Laboratory Results - last 24 hr 02/24/24 07:32: WBC 8.5, RBC 4.22 L, Hgb 12.8 L, Hct 39.4 L, MCV 93.4, MCH 30.3, MCHC 32.5, RDW Std Deviation 43.6, RDW Coeff of [place] 12.8, Plt Count 327, MPV 9.9, Immature Gran % (Auto) 0.600, Neut % (Auto) 60.3, Lymph % (Auto) 25.7, [place] % (Auto) 10.4 H, Eos % (Auto) 1.9, Baso % (Auto) 1.1 H, Absolute Neuts (auto) 5.1, Absolute Lymphs (auto) 2.17, Nucleated RBC % 0, PT 13.0, INR 1.0, APTT 25.2, Sodium 133 L, Potassium 4.7, Chloride 100, Carbon Dioxide 28.0, Anion Gap 5, BUN 21 H, Creatinine 1.14, Estim Creat Clear Calc 49.05, Est GFR (MDRD) Af Amer 80, Est GFR (MDRD) Non-Af 66, BUN/Creatinine Ratio 18.4, Glucose 200 H, Calcium 10.0, Total Bilirubin 0.50, AST 12 L, ALT 7 L, Alkaline Phosphatase 102, Total Protein 7.1, Albumin 3.5, Globulin 3.6, Albumin/Globulin Ratio 1.0 02/24/24 07:43: Urine Color Yellow, Urine Clarity Sl. Cloudy, Urine pH 6.5, Ur Specific [place] 1.010, Urine Protein 30 H, Urine Glucose (UA) 100 H, Urine Ketones Negative, Urine Occult Blood 250 H, Urine Nitrite Negative, Urine Bilirubin Negative, Urine Urobilinogen Normal, Ur Leukocyte Esterase 500 H, Urine RBC 0 SEEN, Urine WBC >100 SEEN, Ur Squamous Epith Cells 0 SEEN, Urine Bacteria 0 SEEN, Urine Mucus 0 SEEN Imaging Radiology Impression Brain CT 02/24/24 07:13 IMPRESSION: 1. No CT evidence of intracranial bleeding, acute ischemic infarct or acute intracranial abnormality. 2. Hypodensities in the anterior end posterior periventricular white matter are chronic white matter ischemic changes. Electronically Signed: Frandy Montague MD at 8:24 EDT , Cervical Spine CT 02/24/24 07:[address]: [address] evidence of acute fractures in the cervical spine, craniocervical junction and cervicothoracic junction. 2. Minimal degenerative anterolisthesis of C4 on C5. 3. Moderate left C3-C4 and left C4-5 degenerative facet arthropathy. 4. Prominent calcified plaques in both carotid bulbs. Electronically Signed: Frandy Montague MD at 8:34 EDT , Chest X-Ray 02/24/24 07:53 IMPRESSION: 1. No acute cardiopulmonary pathology following ET tube removal. 2. Fracture deformity of the right posterior seventh, eighth and ninth ribs. Age is indeterminate. Right rib series will help clarify if desired. Electronically Signed: Frandy Montague MD at 8:45 EDT , Hip/Pelvis X-Ray 02/24/24 07:53 IMPRESSION: No obvious acute fracture or dislocation of the pelvis and left hip. CT will be more helpful for further evaluation if left hip fracture remains a strong clinical consideration. Electronically Signed: Frandy Montague MD at 8:40 EDT , Lower Extremity CT 02/24/24 08:42 IMPRESSION: Mildly impacted and nondisplaced fracture of the left femoral neck. Electronically Signed: Vaishali Soto MD at 9:11 EDT , Assessment & Plan Assessment/Plan (1) Closed left hip fracture: (2) Diabetes mellitus, type II: (3) Fall: (4) Parkinsons disease: PLAN: Plan # Fall with left hip fracture -CT demonstrated mild impacted nondisplaced fracture of left hip -Ortho consult, plan for surgery tomorrow -N.p.o. at midnight -Suspect somewhat poor p.o., will give gentle IV fluids -Pain control -Postop PT/OT -Chest x-ray queried rib fractures, CT pending, patient does not report any pain in this area, if he does have fractures and develops pain can consider lidocaine patches as well as other pain control -Case management and social work consults -Scheduled Tylenol #Hyponatremia -Patient has variable sodiums, 133 today and on 615 was documented at 138 however 613 was 135 and 612 was 134 -Per family member patient has dementia at baseline and does not seem markedly different from usual -Suspect component of poor p.o. intake -Will give gentle IV fluids and repeat in a.m. # Mild chronic anemia -Appears to be at baseline -No evidence of blood loss -Continue monitor # Parkinson's disease -Continue home medications -PT/OT #Recent food impaction -Was hospitalized due to food impaction recently and had undergo EGD and extraction -There were aspiration concerns but family did not want PEG tube -C/s speech -Will keep n.p.o. pending speech eval # Dementia -Will hold donepezil in the short-term -Can consider resuming on discharge #GERD -Continue PPI # Anxiety -Continue Lexapro #Type 2 diabetes mellitus -Glucose checks and sliding scale insulin -Holding home metformin #Chronic BPH -Based on history however does not appear to be on home medication -Given patient presently bedbound and will be having surgery tomorrow will have Rivera placed #DVT ppx: SCDs Maria De Jesus Mckeon MD Time spent in the patient's overall evaluation,decision-making process, review of diagnostic data, adjustment of management, discussion with other providers, nursing nursing and ancillary staff involved in patient's care documentation, 50 Minutes Charges/Coding Visit Charges Inpatient E&M: 67997 Init Hosp L1
[2024-02-24] MEDS: 0.9% Normal Saline (1000mL) 1,000 ML 50 ML IV (11:00)
[2024-02-24 12:15] LABS: Bedside Glucose 165 mg/dL (74-106)
--- NOTE | 2024-02-24 12:38 | NURSING ---
spoke with K[facility] to update pt stay and verify meds
[2024-02-24] MEDS: Morphine 2 MG/ML Syringe IV (22:30)
[2024-02-24] MEDS: 0.9% Saline Lock 10 ML Syringe IV (22:30)
[2024-02-25] VITALS (15 sets, daily range): BP systolic 107–178; BP diastolic 43–99; PULSE 69–95; RESP 16–18; TEMP 36–36.8; O2SAT 92–100; BMI 20.3
[2024-02-25 06:32] LABS: Absolute Lymphocyte Count 0.87 X10^3/uL (0.83-4.51); Absolute Neutrophil Count 6.5 X10^3/uL (2.0-7.7); Basophil# 0.06 X10^3/uL; Basophil% 0.7 % (0-1); Eosinophil# 0.05 X10^3/uL; Eosinophils% 0.6 % (0-5); Hemoglobin 11.6 g/dL (13.0-16.5); Lymphocyte # 0.87 X10^3/ul (0.83-4.51); Lymphocyte % 10.2 % (19-41); Mean Corp Hgb Conc 32.2 g/dL (32-36); Mean Corpuscular Hgb 30.4 pg (27.0-32.0); Mean Corpuscular Volume 94.5 fL (80-94); Mean Platelet Vol. 10.2 fl (6.2-12.0); Monocyte# 1.08 X10^3/uL; Monocyte% 12.6 % (0-10); NRBC Flagged by Analyzer 0 % (0-5); Neutrophil # 6.46 X10^3/uL (2.7-7.7); Neutrophil % 75.5 % (47-70); Platelet Count 292 K/mm3 (150-450); RBC Distribution Width CV 12.8 % (11.6-14.6); RBC Distribution Width SD 44.2 fl (35.1-43.9); Red Blood Count 3.81 M/mm3 (4.6-6.2); White Blood Count 8.6 K/mm3 (4.4-11.0)
[2024-02-25 06:42] LABS: Prothrombin Time (Protime)PT. 13.1 SECONDS (11.7-14.9)
[2024-02-25 07:08] LABS: Anion Gap 8 (5-15); BUN 21 mg/dL (7-18); BUN/Creat Ratio 22.2 RATIO (10-20); Calcium,Total 9.1 mg/dL (8.5-10.1); Chloride 103 mmol/L (98-107); Creatinine, Serum 0.94 mg/dL (0.70-1.30); EST Glomerular Filtration Rate 82 mL/min (>60); Est Glom Filt Rate - Afr Amer 99 mL/min (>60); Estimated Creatinine Clearance 56.79 ml/min; Glucose 169 mg/dL (74-106); Potassium 4.6 mmol/L (3.5-5.1); Sodium Level 136 mmol/L (136-145)
[2024-02-25 07:49] LABS: Bedside Glucose 146 mg/dL (74-106)
--- NOTE | 2024-02-25 07:49 | CON.PCM_ITS ---
Assessment & Plan Assessment/Plan (1) Basicervical fracture of left femur: QUALIFIERS: Encounter type: initial encounter Fracture type: c losed Fracture alignment: displaced Qualified Code(s): S72.042A - Displaced fracture of base of neck of left femur, initial encounter for closed fracture PLAN: Plan Discussion was had with the patient and his and [id number] in regards to surgical options of percutaneous screw fixation versus hemiarthroplasty and due to his dementia and Parkinson's I do not think he would be able to comply with partial weightbearing or limited weightbearing status and I think he be better off with a hemiarthroplasty to allow immediate full weightbearing and ambulation with assistance they are in agreement with this risk benefits alternatives of surgery were reviewed including risk of bleeding infection nerve artery tissue damage dislocation leg length discrepancy need for further surgery. Antibiotics ordered on-call the OR tranexamic acid ordered plan for hemiarthroplasty left hip. Family is interested in rehab prior to return to care home , I did explain this depends on his ability to comply with physical therapy postoperatively, I did convey this to the nursing to so we can help facilitate discharge planning. HPI Consult Data Date of Consult: 02/25/24 HPI Narrative Reason for Consultation: Left hip fracture HPI Narrative: JODIE AMAYA, is a 78 M who has dementia and Parkinson's who is in a nursing facility who is supposed to have assistance during ambulation and transfer however he got up on his own and fell onto his left side immediately having pain in his left hip he was brought to the emergency room where x-rays and CT scan demonstrated a subcapital femoral neck fracture with impaction. He denies any other injury he is seen at the bedside with his and [id number]. He does ambulate some with assistance with a walker. [facility] Medical History Male circumcision Walker as ambulation aid Prostate disease Anemia Back pain Shortness of breath on exertion History of edema Wears dentures Wears glasses Diabetes High cholesterol History of diverticulitis Former smoker Anxiety Depression History of dementia Parkinsons disease Callus of foot Diarrhea Diabetes mellitus type 2 in nonobese Hypertension Home Medications ?Medication ?Instructions ?Recorded ?Last Taken ?Type donepezil 10 mg tablet (Aricept) 10 mg PO QHS memory 06/26/18 02/01/24 History atorvastatin 10 mg tablet 10 mg PO QHS cholesterol 08/26/19 02/01/24 History carbidopa ER 25 mg-levodopa 100 mg 1 tab PO TID parkinsons 08/26/19 02/02/24 History tablet,extended release cholecalciferol (vitamin D3) 25 5,000 unit PO DAILY supplement 08/26/19 06/22/23 History mcg (1,000 unit) tablet acidophilus 25 million 1 tab PO DAILY 09/11/19 02/01/24 Rx cell-pectin, citrus 100 mg tablet multivitamin 1 tab PO DAILY 06/16/23 02/01/24 History metformin 500 mg tablet 500 mg PO BID 01/18/24 02/01/24 History bisacodyl 10 mg rectal suppository 10 mg OK DAILY PRN constipation 02/07/24 Unknown History escitalopram oxalate 20 mg tablet 20 mg PO DAILY 02/07/24 Unknown History magnesium hydroxide 400 mg/5 mL 30 ml PO DAILY PRN constipation 02/07/24 Unknown History oral suspension (Dulcolax (magnesium hydroxide)) carbidopa 25 mg-levodopa 100 mg 1 tab PO TID parkinsons 02/24/24 Unknown History tablet pantoprazole 40 mg tablet,delayed 40 mg PO BID 02/24/24 Unknown History release Allergy/AdvReac Type Severity Reaction Status Date / Time codeine AdvReac Nausea/Vom/ Verified 02/24/24 06:58 Diarrhea Family History Father Hypertension Heart disease Surgical History H/O transurethral resection of prostate Hx of foot surgery Hx of colonoscopy s/p stomach surgery Social History Smoking Status: Former smoker alcohol intake: never Physical Exam Const no apparent distress; Negative for alert or oriented x3 General Appearance: comfortable Orientation / Consciousness: awake; Negative for oriented to person, oriented to place or oriented to time Extremity Extremity Narrative: Left hip no significant ecchymosis erythema or open wound compartments soft he is able to comply with ankle plantarflexion dorsiflexion although this is limited he does have palpable pedal pulse Lab / Micro Data 02/25/24 05:20 02/25/24 05:20 Labs: Laboratory Results - last 24 hr 02/24/24 07:32: PT 13.0, INR 1.0, APTT 25.2, Sodium 133 L, Potassium 4.7, Chloride 100, Carbon Dioxide 28.0, Anion Gap 5, BUN 21 H, Creatinine 1.14, Estim Creat Clear Calc 49.05, Est GFR (MDRD) Af Amer 80, Est GFR (MDRD) Non-Af 66, BUN/Creatinine Ratio 18.4, Glucose 200 H, Calcium 10.0, Total Bilirubin 0.50, A ST 12 L, ALT 7 L, Alkaline Phosphatase 102, Total Protein 7.1, Albumin 3.5, Globulin 3.6, Albumin/Globulin Ratio 1.0 02/24/24 07:43: Urine Color Yellow, Urine Clarity Sl. Cloudy, Urine pH 6.5, Ur Specific [place] 1.010, Urine Protein 30 H, Urine Glucose (UA) 100 H, Urine Ketones Negative, Urine Occult Blood 250 H, Urine Nitrite Negative, Urine Bilirubin Negative, Urine Urobilinogen Normal, Ur Leukocyte Esterase 500 H, Urine RBC 0 SEEN, Urine WBC >100 SEEN, Ur Squamous Epith Cells 0 SEEN, Urine Bacteria 0 SEEN, Urine Mucus 0 SEEN 02/24/24 11:28: POC Glucose 165 H 02/25/24 05:20: WBC 8.6, RBC 3.81 L, Hgb 11.6 L, Hct 36.0 L, MCV 94.5 H, MCH 30.4, MCHC 32.2, RDW Std Deviation 44.2 H, RDW Coeff of [place] 12.8, Plt Count 292, MPV 10.2, Immature Gran % (Auto) 0.400, Neut % (Auto) 75.5 H, Lymph % (Auto) 10.2 L, [place] % (Auto) 12.6 H, Eos % (Auto) 0.6, Baso % (Auto) 0.7, Absolute Neuts (auto) 6.5, Absolute Lymphs (auto) 0.87, Nucleated RBC % 0, PT 13.1, INR 1.0, Sodium 136, Potassium 4.6, Chloride 103, Carbon Dioxide 25.0, Anion Gap 8, BUN 21 H, Creatinine 0.94, Estim Creat Clear Calc 56.79, Est GFR (MDRD) Af Amer 99, Est GFR (MDRD) Non-Af 82, BUN/Creatinine Ratio 22.2 H, Glucose 169 H, Calcium 9.1, Blood Type O POSITIVE, Antibody Screen NEGATIVE Imaging Radiology Impression Brain CT 02/24/24 07:13 IMPRESSION: 1. No CT evidence of intracranial bleeding, acute ischemic infarct or acute intracranial abnormality. 2. Hypodensities in the anterior end posterior periventricular white matter are chronic white matter ischemic changes. Electronically Signed: Frandy Montague MD at 8:24 EDT Reading Location ID and State: [facility] / [place] , Service support , Cervical Spine CT 02/24/24 07:13 IMPRESSION: 1[address] No CT evidence of acute fractures in the cervical spine, craniocervical junction and cervicothoracic junction. 2. Minimal degenerative anterolisthesis of C4 on C5. 3. Moderate left C3-C4 and left C4-5 degenerative facet arthropathy. 4. Prominent calcified plaques in both carotid bulbs. Electronically Signed: Frandy Montague MD at 8:34 EDT Reading Location ID and State: [facility] / [place] , Service support , Chest X-Ray 02/24/24 07:53 IMPRESSION: 1. No acute cardiopulmonary pathology following ET tube removal. 2. Fracture deformity of the right posterior seventh, eighth and ninth ribs. Age is indeterminate. Right rib series will help clarify if desired. Electronically Signed: Frandy Montague MD at 8:45 EDT Reading Location ID and State: [facility] / [place] , Service support , Hip/Pelvis X-Ray 02/24/24 07:53 IMPRESSION: No obvious acute fracture or dislocation of the pelvis and left hip. CT will be more helpful for further evaluation if left hip fracture remains a strong clinical consideration. Electronically Signed: Frandy Montague MD at 8:40 EDT Reading Location ID and State: [facility] / [place] , Service support , Lower Extremity CT 02/24/24 08:42 IMPRESSION: Mildly impacted and nondisplaced fracture of the left femoral neck. Electronically Signed: Vaishali Soto MD at 9:11 EDT , Chest CT 02/24/24 08:49 IMPRESSION: 1. No CT evidence of pulmonary contusion, pneumothorax or hemothorax. 2. Clearing of consolidation inside the reticulation of the posterior lung bases. 3. Bone spur overlying the head of the left 11th rib rather than fracture fragment. This is confirmed in the coronal reconstructions. 4. No suspicious acute fractures of the bony rib cage or elsewhere is in the chest. 5. Mild old anterior wedge compression fracture of the upper T8 vertebral body is unchanged. 6. Three-vessel coronary artery calcifications were present previously. 7. 2 prominent left renal cysts are simple cysts. No follow-up is necessary for these renal cysts. They are unchanged. Electronically Signed: Frandy Montague MD at 10:43 EDT ,
[2024-02-25] MEDS: Cefazolin 2 GM in 0.9% Normal Saline (100mL Bag) 100 ML IV (07:57)
--- NOTE | 2024-02-25 07:58 | PCM.PRE.AN2 ---
ASA Classification* ASA Classification ASA Classification: 3 and E Assessment & Plan Anesthesia* Anesthesia Assessment Anesthesia Assessment: Discussed sedation and/or anesthesia options, risks, benefits, and alternatives with patient/parents/legal guardian/POA. Questions invited. The patient/parents/legal guardian/POA seems to understand and agrees to proceed with anesthesia plan. Reviewed the physical assessment, medical history, allergy history and patient home medications list prior to surgery/procedure/anesthetic and documented any changes. Performed airway and anesthesia risk assessments. Anesthesia Type Anesthesia Type: General (see written pre anesthesia record for full assessment) Anesthesia Focused Assessment* Temperature: 98.3 F Pulse Rate: 69 Blood Pressure: 131/62 Respiratory Rate: 16 Pulse Ox: 96 Airway Assessment Mouth opens: >3 cm Mallampati Score: II Focused Labs Anesthesia Preop lab: CBC WBC 8.6 K/mm3 (4.4-11.0) 02/25/24 05:20 RBC 3.81 M/mm3 (4.6-6.2) L 02/25/24 05:20 Hgb 11.6 g/dL (13.0-16.5) L 02/25/24 05:20 Hct 36.0 % (40-54) L 02/25/24 05:20 Plt Count 292 K/mm3 (150-450) 02/25/24 05:20 CHEMISTRY Potassium 4.6 mmol/L (3.5-5.1) 02/25/24 05:20 Sodium 136 mmol/L (136-145) 02/25/24 05:20 Magnesium 2.0 mg/dL (1.6-2.6) 02/08/24 04:00 Phosphorus 4.3 mg/dL (2.5-4.9) 02/08/24 04:00 BUN 21 mg/dL (7-18) H 02/25/24 05:20 Creatinine 0.94 mg/dL (0.70-1.30) 02/25/24 05:20 Glucose 169 mg/dL (74-106) H 02/25/24 05:20 POC Glucose 146 mg/dL (74-106) H 02/25/24 06:44 TSH 0.79 uIU/mL (0.358-3.74) 02/08/24 04:00 COAG PT 13.1 SECONDS (11.7-14.9) 02/25/24 05:20 Pre-Assessment Diagnosis/Proposed Procedure Planned Operative Procedure(s): roland hip Anesthesia History 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 When Was Last Pacemaker Check QUESTION #4 FULL TEXT: You/Your Family Experience fever (hyperthermia) with Anesthesia Last Oral Intake Last Oral intake: Last Oral Intake NPO since 00:00 02/25/24 06:38 Meds taken in AM with sips of No 02/25/24 06:38 water? Meds patient instructed to take am of surgery PONV PONV - plating engineer: PONV - plating engineer Female HX of Motion Sickness HX of N/V After Surgery Non-Smoker Duration of Surgery greater than 60 minutes Number of Risk Factors PONV Score Height & Weight Height & Weight: Anesthesia: Height & Weight Height 5 ft 8.11 in 02/25/24 06:38 Weight: 61.008 kg 02/25/24 06:38 Body Mass Index (BMI) 20.3 02/25/24 06:38 Respiratory Assessment Respiratory Assessment - plating engineer: Respiratory Tract Infection Hx - plating engineer Hx Respiratory Tract Infection No 02/25/24 06:36 STOP Sleep Apnea STOP Sleep Apnea - plating engineer: STOP Sleep Apnea - plating engineer Hx Hypertension No 02/25/24 07:39 Hx Sleep Apnea No 02/24/24 10:30 CPAP No 02/02/24 11:32 BIPAP No 01/18/24 13:19 Do you snore loudly (louder No 02/24/24 10:30 than talking or can be heard Do you often feel tired/ No 02/24/24 10:30 fatigued/ sleepy during daytime? Has anyone observed you stop No 02/24/24 10:30 breathing during sleep? STOP Results Negative 02/24/24 10:30 QUESTION #5 FULL TEXT : Do you snore loudly (louder than talking or can be heard through closed doors)? 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 Specify any problems Hx of Preganancy in last 3 N/A 02/24/24 10:30 Months Nurse Filling Out Transfusion LDOTTERER 02/24/24 10:30 & Questions: Date: 02/24/24 02/24/24 10:30 Time: 11:17 02/24/24 10:30 Patient unable to answer at this time (ie. confused, unrespo /Reproduction History /Reproductive History - plating engineer: /Reproductive Hx- plating engineer Hx Now No 02/25/24 06:36 Gestational Age (in weeks): EDC: Hx Hx Para Hx Section SAB No 01/18/24 13:19 Active Medications Active Medications: Current Medications Generic Name Dose Route Start Last Admin Trade Name Freq PRN Reason Stop Dose Admin Acetaminophen 1,000 mg 02/24/24 14:00 02/25/24 04:46 Acetaminophen 500 Mg Tablet PO Not Given Q8 JANY Albuterol Sulfate 2.5 mg 02/24/24 10:55 Albuterol 2.5 Mg/3 Ml Vial.Neb. INHALATION Q2H PRN PRN SOB &/OR WHEEZING Atorvastatin Calcium 10 mg 02/24/24 22:00 02/24/24 22:38 Atorvastatin Calcium 10 Mg Tablet PO Not Given QHS JANY Carbidopa/Levodopa 1 tablet 02/24/24 16:00 02/25/24 04:47 Carbidopa/Levodopa 25/100 Tablet PO Not Given TIDAC [facility] Escitalopram Oxalate 20 mg 02/24/24 10:55 02/24/24 14:25 Escitalopram Oxalate 20 Mg Tablet PO Not Given DAILY [facility] Glucagon 1 mg 02/24/24 10:55 Glucagon 1 Mg/Ml Syringe IM X1 PRN HYPOGLYCEMIA Protocol Cefazolin Sodium 2 gm/ Sodium 120 mls @ 240 mls/hr 02/25/24 10:00 Chloride IV 02/25/24 10:29 SEND TO OR W/PATIENT ONE Tranexamic Acid 2,000 mg/ 120 mls @ 440 mls/hr 02/25/24 10:00 Sodium Chloride IV 02/25/24 10:16 PREOP ONE Dextrose 250 mls @ 999 mls/hr 02/24/24 10:55 Dextrose 10%-Water IV .Q16M PRN HYPOGLYCEMIA Protocol Insulin Human Lispro 0 unit 02/24/24 11:00 02/25/24 06:45 Insulin Lispro 100 Unit/Ml Insuln.Pen SC Not Given TIDAC [facility] Protocol Melatonin 3 mg 02/24/24 10:55 Melatonin 3 Mg Tablet PO QHS PRN PRN INSOMNIA Morphine Sulfate 2 - 4 mg 02/24/24 10:55 02/24/24 22:30 Morphine 2 Mg/Ml Syringe IV 2 mg Q3H PRN PRN Administration Pain Score 6-10 Morphine Sulfate 2 - 4 mg 02/24/24 11:41 Morphine 4 Mg/Ml Syringe IV Q3H PRN PRN Pain Score 6-10 Oxycodone HCl 5 mg 02/24/24 10:55 Oxycodone 5 Mg Tablet PO Q4H PRN PRN Pain Score 4-10 Pantoprazole Sodium 40 mg 02/24/24 10:55 02/24/24 22:38 Pantoprazole Sodium 40 Mg Tablet PO Not Given BID [facility] Senna/Docusate Sodium 2 tablet 02/24/24 10:55 Senna/Docusate Sodium 1 Tablet PO BID PRN PRN Constipation Sodium Chloride 10 - 40 ml 02/24/24 11:03 02/24/24 22:30 0.9% Saline Lock 10 Ml Syringe IV 10 ml UD PRN Administration SALINE FLUSH PFSH Medical History Male circumcision Walker as ambulation aid Prostate disease Anemia Back pain Shortness of breath on exertion History of edema Wears dentures Wears glasses Diabetes High cholesterol History of diverticulitis Former smoker Anxiety Depression History of dementia Parkinsons disease Callus of foot Diarrhea Diabetes mellitus type 2 in nonobese Hypertension Home Medications ?Medication ?Instructions ?Recorded ?Last Taken ?Type donepezil 10 mg tablet (Aricept) 10 mg PO QHS memory 06/26/18 02/01/24 History atorvastatin 10 mg tablet 10 mg PO QHS cholesterol 08/26/19 02/01/24 History carbidopa ER 25 mg-levodopa 100 mg 1 tab PO TID parkinsons 08/26/19 02/02/24 History tablet,extended release cholecalciferol (vitamin D3) 25 5,000 unit PO DAILY supplement 08/26/19 06/22/23 History mcg (1,000 unit) tablet acidophilus 25 million 1 tab PO DAILY 09/11/19 02/01/24 Rx cell-pectin, citrus 100 mg tablet multivitamin 1 tab PO DAILY 06/16/23 02/01/24 History metformin 500 mg tablet 500 mg PO BID 01/18/24 02/01/24 History bisacodyl 10 mg rectal suppository 10 mg MI DAILY PRN constipation 02/07/24 Unknown History escitalopram oxalate 20 mg tablet 20 mg PO DAILY 02/07/24 Unknown History magnesium hydroxide 400 mg/5 mL 30 ml PO DAILY PRN constipation 02/07/24 Unknown History oral suspension (Dulcolax (magnesium hydroxide)) carbidopa 25 mg-levodopa 100 mg 1 tab PO TID parkinsons 02/24/24 Unknown History tablet pantoprazole 40 mg tablet,delayed 40 mg PO BID 02/24/24 Unknown History release Allergy/AdvReac Type Severity Reaction Status Date / Time codeine AdvReac Nausea/Vom/ Verified 02/24/24 06:58 Diarrhea Family History Father Hypertension Heart disease Surgical History H/O transurethral resection of prostate Hx of foot surgery Hx of colonoscopy s/p stomach surgery Social History Smoking Status: Former smoker alcohol intake: never Review of Systems (Anesthesia) ROS Narrative System reviewed and no additional complaints, except as documented.
[2024-02-25] MEDS: TRANEXAMIC ACID 2,000 MG in 0.9% Normal Saline (100mL Bag) 100 ML 440 MG IV (08:10)
--- NOTE | 2024-02-25 08:20 | HIP_PTH ---
PATIENT: JODIE AMAYA LOC: [facility] U#:[id number] AGE/SX: 78/M ROOM: [facility] [place]/24/[address]: Dr. Milton Marley MD : 1945 BED: 1 DIS: 02/27/2024 SPEC #: [id number] RECD: 02/26/24 10:07 STATUS: RICHARD WILKES #: [id number] YVETTE: 02/25/24 08:[address]: Ishan An DEPT: SURGICAL PATHOLOGY RECD BY: Mayra Owusu ENTERED: 02/26/24 11:24 SP TYPE: TOTAL HIP OTHR DR: DO Dr. Pawel Smith MD Dr. Nicholas F Kotsonis, MD Dr. Paige Pierce, MD Tissues: Hip, NOS Procedures: Decalcification bone/plaque Surgery Specimen Level IV Comments: @ Ordering doctor for DEC edited from to @ by ADOLPH at 03/01/24 1243 @ Ordering doctor for SUIV edited from to @ by ADOLPH at 03/01/24 1243 @ Submitting doctor edited from to @ by ADOLPH at 03/01/24 1243 HEADER OPERATION: Hemiarthroplasty, hip PRE-OP DIAGNOSIS: Closed left hip fracture, diabetes mellitus, type II, fall, Parkinson's disease TISSUE SUBMITTED: Left hip bone and tissue MICROSCOPIC DIAGNOSIS Left hip bone and soft tissue, total hip replacement/resection: Femoral head and detached pieces of bone with focal area of hemorrhage, clinically left hip fracture. Fragments of fibroadipose tissue and fibroconnective tissue. SJ: 03/01/2024 MICROSCOPIC DESCRIPTION Slides are reviewed. GROSS DESCRIPTION Received is one container labeled with the patient's name and designated femoral head and tissue. The specimen consists of a mejia femoral head measuring 4.5 x 4.5 x 4.0 cm. The articular surface is smooth. Resection margin is irregular and hemorrhagic. Also present in the specimen container are multiple detached pieces of bone measuring in aggregate 6.0 x 7.0 x 2.5cm. Also present in the container is a detached piece of soft tissue measuring 3.0 x 1.0 x 0.5 cm. Slurry Control Operator Helper sections are submitted in three cassettes as follows: 1 - soft tissue, 2 - detached pieces of bone after decalcification, 3 - femoral head after decalcification. KINGSLEY/ 02/26/2024 TC:5 CPT: 81308, 29138
--- NOTE | 2024-02-25 09:44 | OP.PCM_ITS ---
Operative Report Date of Procedure: 02/25/24 Preoperative diagnosis: Left hip femoral neck fracture displaced Postoperative diagnosis: Same Procedure: Left hip hemiarthroplasty Implants: Roverto Accolade II stem size 4 132 degree neck angle -3 neck length 566 mm outer diameter bipolar head Anesthesia: General l EBL: 150 cc Complications: None Condition: Stable to PACU Indication for procedure: This is a 78-year-old male with Parkinson's who had a ground-level fall from longterm sustained a subcapital left femoral neck fra cture impacted. plans for definitive hemiarthroplasty were discussed including risks benefits and alternatives of the procedure were reviewed with the patient including risk of bleeding infection nerve artery tissue damage need for further surgery continue pain postoperative hip precaution restrictions leg length discrepancy and dislocation. Procedure: Patient was met in the preoperative holding area once again the operative extremity was identified by both patient and physician and was marked. Patient was met by anesthesia and brought to the operating room where anesthesia was started . The patient was then positioned in the lateral decubitus position on a well-padded pegboard with an axillary roll. All bony prominences were checked and padded. The patient was prepped and draped in the usual sterile fashion. A timeout was called to ensure the proper patient procedure and extremity were being contemplated. Anatomic landmarks were palpated and marked for a standard posterior lateral approach. A timeout was called to ensure the proper patient procedure and extremity were being contemplated. A 10 blade scalpel was used to make a posterior incision through the skin and subcutaneous tissue. In retractors were used and electrocautery was used to maintain meticulous hemostasis and dissect full-thickness flaps until the gluteal fascia was reached. The gluteal fascia was incised in line with the gluteal fibers. The bursal tissue was then freed from the underside and a Charnley retractor was placed. The fatpad was elevated off of the external rotators with electrocautery and the external rotators were dissected off of the greater trochanter including the piriformis and were tagged with #1 Ethibond for later repair. The joint capsule opened with posterior trapdoor te chnique. A femoral neck cutting guide was used to avril the neck with a Bovie and an oscillating saw was used to complete the femoral neck cut. the fracture was visualized and with the use of a corkscrew and a skid the femoral head was removed and sized. We then trialed with the matching sizes . Hohmann was placed around the lesser trochanter. A femoral elevator was used. As well as a pointed wide Hohmann around the lesser trochanter and a Hohmann to help retract the gluteus medius. A box chisel was used to remove excess lateral neck followed by a canal finder and a lateralizing reamer. This was followed by sequential broaches. Attention was made of the version within the canal. Once the final broach was seated we then trialed and reduced the hip it was determined that a 132 degree neck angle with a -3 neck length was the appropriate size. We then checked stability with shuck testing as well as flexion and interminal rotation then proceeded with hip extension and checked leg lengths at the knees and heels. At this point trials were removed. The femoral stem was inserted. We re-trialed and then proceeded to impact the femoral head onto the Franck taper. We then surgically reduce the hip check stability again and leg lengths and were satisfied. irricept rinse was allowed to sit for 1 minutes while everyone changed their gloves. Thorough irrigation was performed. Followed by closure of the external rotators with #2 FiberWire followed by closure of gluteal fascia with #1 Ethibond. 0 Vicryl fat stitches and 2-0 Vicryl subcutaneous stitches and claudia in the skin. Dressing was applied in the form of silverlon dressing and an abduction pillow was placed. Patient tolerated the procedure well there was no intraoperative complications all counts were correct and the patient was brought back to the PACU in stable condition
--- NOTE | 2024-02-25 09:46 | PCM.POST.ANE ---
Anesthesia: Postop Eval I Current Vital Signs Temperature: 96.8 F Pulse Rate: 91 Blood Pressure: 163/80 Respiratory Rate: 18 Pulse Ox: 97 Oxygen Delivery Method: Room Air Assessment Airway patent: Yes Spontaneous unlabored respirations: Yes Mental status: Calm nausea: No Vomiting: No Anesthesia Complication: No Fluid Hydration Crystalloid volume administer (ml): 1,000 Total IV fluid infused: 1,000 Progress Note Anesthesia document: Postop Eval 1 completed: Yes
--- NOTE | 2024-02-25 09:53 | RAD_ITS ---
EXAM: XR LEFT HIP WITH PELVIS WHEN PERFORMED, 2 OR 3 VIEWS CLINICAL INDICATION: Post Op -- AP both hips on single amanda/lateral of op hip PACU TECHNIQUE: Two or three views of the left hip with pelvis when performed. COMPARISON: 02/24/2024 FINDINGS: BONES/JOINTS: Status post left hip arthroplasty. The acetabular and femoral components appear well-positioned. Partially visualized degenerative changes of the sacroiliac joints and the right hip. No displaced fracture. No destructive or sclerotic lesions. Note that overlapping bowel shadows may however obscure fine detail. No widening of the pubic symphysis. SOFT TISSUES: Soft tissue emphysema and surgical clips are present overlying the left hip. RAD/Hip Min 2 Views (Portable) IMPRESSION: Status post left hip arthroplasty. Expected postoperative changes. Electronically Signed: Phoenix Montesinos DO at 10:07 EDT ,
[2024-02-25] MEDS: 0.9% Normal Saline (1000mL) 1,000 ML 125 ML IV ×2 (10:51→18:41)
--- NOTE | 2024-02-25 10:58 | POSTOPAN2_ITS ---
Anesthesia Postop Eval I Sum Postop Eval Completion status Anesthesia document: Postop Eval 1 completed: Yes Anesthesia Postop Eval I Summary Anesthesia Postop Eval I Summary: Anesthesia Postop Eval I: Assessment Summary Airway patent Yes 02/25/24 09:48 CAREER SERVICES [email or web address].[email or web address] Spontaneous unlabored Yes 02/25/24 09:48 CAREER SERVICES OFFICER.CSIR respirations Mental status Calm 02/25/24 09:48 CAREER SERVICES OFFICER.CSIR nausea No 02/25/24 09:48 CAREER SERVICES OFFICER.CSIR Vomiting No 02/25/24 09:48 CAREER SERVICES OFFICER.CSIR Anesthesia Postop Eval I: Fluid Summary Crystalloid volume administer 1,000 02/25/24 09:48 CAREER SERVICES OFFICER.CSIR (ml) Colloids volume administered ( ml) Blood Product volume administered (ml) Total IV fluid infused 1,000 02/25/24 09:48 CAREER SERVICES OFFICER.CSIR Anesthesia Postop Eval I: Summary Notes Anesthesia Complication No 02/25/24 09:48 CAREER SERVICES OFFICER.CSIR Anesthesia Complication Comment: Post-operative progress note Anesthesia: Postop Eval II Evaluation Mental status: Awake Pain Level: 0 nausea: No Vomiting: No
--- NOTE | 2024-02-25 10:58 | PCM.POSTANE2 ---
Anesthesia Postop Eval I Sum Postop Eval Completion status Anesthesia document: Postop Eval 1 completed: Yes Anesthesia Postop Eval I Summary Anesthesia Postop Eval I Summary: Anesthesia Postop Eval I: Assessment Summary Airway patent Yes 02/25/24 09:48 SENIOR ACCOUNT CLERK.CSIR Spontaneous unlabored Yes 02/25/24 09:48 SENIOR ACCOUNT CLERK.CSIR respirations Mental status Calm 02/25/24 09:48 SENIOR ACCOUNT CLERK.CSIR nausea No 02/25/24 09:48 SENIOR ACCOUNT CLERK.CSIR Vomiting No 02/25/24 09:48 SENIOR ACCOUNT CLERK.CSIR Anesthesia Postop Eval I: Fluid Summary Crystalloid volume administer 1,000 02/25/24 09:48 SENIOR ACCOUNT CLERK.CSIR (ml) Colloids volume administered ( ml) Blood Product volume administered (ml) Total IV fluid infused 1,000 02/25/24 09:48 SENIOR ACCOUNT CLERK.CSIR Anesthesia Postop Eval I: Summary Notes Anesthesia Complication No 02/25/24 09:48 SENIOR ACCOUNT CLERK.CSIR Anesthesia Complication Comment: Post-operative progress note Anesthesia: Postop Eval II Evaluation Mental status: Awake Pain Level: 0 nausea: No Vomiting: No
[2024-02-25] MEDS: Calcium Carbonate 500 MG Tablet PO ×2 (11:12→17:10)
[2024-02-25] MEDS: Carbidopa/Levodopa 25/100 Tablet PO ×2 (11:12→17:10)
--- NOTE | 2024-02-25 11:19 | PCM.PN.HOSP ---
Subjective Subjective No issues overnight, pain is controlled Objective Data Objective Data Vital Signs: Vital Signs Temp Pulse Resp BP Pulse Ox O2 Del Method 97.7 F L 94 16 153/89 H 97 Room Air 02/25/24 10:53 02/25/24 10:53 02/25/24 10:53 02/25/24 10:53 02/25/24 10:53 02/25/24 11:01 Oxygen Delivery Method Room Air Weight: 134 lb 7.994 oz Body Mass Index (BMI) 20.3 Intake & Output: Intake and Output for Last 24 Hours 02/24/24 02/25/24 02/26/24 03:59 03:59 03:59 Intake Total 563 / 563 240 / 240 Output Total 500 / 500 200 / 200 Balance 63 / 63 40 / 40 Lab / Micro Data 02/25/24 05:20 02/25/24 05:20 Labs: Laboratory Results - last 24 hr 02/24/24 11:28: POC Glucose 165 H 02/25/24 05:20: WBC 8.6, RBC 3.81 L, Hgb 11.6 L, Hct 36.0 L, MCV 94.5 H, MCH 30.4, MCHC 32.2, RDW Std Deviation 44.2 H, RDW Coeff of Christie 12.8, Plt Count 292, MPV 10.2, Immature Gran % (Auto) 0.400, Neut % (Auto) 75.5 H, Lymph % (Auto) 10.2 L, Dickenson % (Auto) 12.6 H, Eos % (Auto) 0.6, Baso % (Auto) 0.7, Absolute Neuts (auto) 6.5, Absolute Lymphs (auto) 0.87, Nucleated RBC % 0, PT 13.1, INR 1.0, Sodium 136, Potassium 4.6, Chloride 103, Carbon Dioxide 25.0, Anion Gap 8, BUN 21 H, Creatinine 0.94, Estim Creat Clear Calc 56.79, Est GFR (MDRD) Af Amer 99, Est GFR (MDRD) Non-Af 82, BUN/Creatinine Ratio 22.2 H, Glucose 169 H, Calcium 9.1, Blood Type O POSITIVE, Antibody Screen NEGATIVE 02/25/24 06:44: POC Glucose 146 H Radiography Diagnostic Testing: Radiology Impression Hip X-Ray 02/25/24 09:53 IMPRESSION: Status post left hip arthroplasty. Expected postoperative changes. Electronically Signed: Phoenix Montesinos, DO at 10:07 EDT , Physical Exam Narrative General: Alert, Cooperative, No apparent distress HEENT: Atraumatic, PERRLA, EOMI, Normocephalic Oral: Moist Mucosa Neck: Supple, No JVD Lungs: Diminished, Normal air movement, No rhonchi, No wheeze, No rales Cardiovascular: Regular rate, Regular Rhythm, Normal S1, Normal S2, No murmurs Abdomen: Soft, Non Tender, Non-Distended, No Hepato-splenomegaly Extremities: No edema, Capillary Refill Less than 3 Seconds Skin: No rashes, No breakdown Musculoskeletal: Left hip is tender to palpation Neurological: No focal neurological deficits, Motor Exam 5/5 strength throughout, Sensory exam intact to light touch and pain Psych/Mental Status: Normal Affect, Appropriate Assessment & Plan Assessment/Plan (1) Closed left hip fracture: (2) Diabetes mellitus, type II: (3) Fall: (4) Parkinsons disease: PLAN: Plan # Fall with left hip fracture -CT demonstrated mild impacted nondisplaced fracture of left hip -Ortho consult, plan for surgery tomorrow -N.p.o. at midnight -Suspect somewhat poor p.o., will give gentle IV fluids -Pain control -Postop PT/OT -Chest x-ray queried rib fractures, CT pending, patient does not report any pain in this area, if he does have fractures and develops pain can consider lidocaine patches as well as other pain control -Case management and social work consults -Scheduled Tylenol 02/25/2024: Plan for operative repair today #Hyponatremia?resolved # Mild chronic anemia -Appears to be at baseline -No evidence of blood loss -Continue monitor # Parkinson's disease -Continue home medications -PT/OT #Recent food impaction -Was hospitalized due to food impaction recently and had undergo EGD and extraction -There were aspiration concerns but family did not want PEG tube -C/s speech -Will keep n.p.o. pending speech eval # Dementia -Will hold donepezil in the short-term -Can consider resuming on discharge #GERD -Continue PPI # Anxiety -Continue Lexapro #Type 2 diabetes mellitus -Glucose checks and sliding scale insulin -Holding home metformin #Chronic BPH -Based on history however does not appear to be on home medication -Given patient presently bedbound and will be having surgery tomorrow will have Rivera placed DVT: SCDs Charges/Coding Visit Charges Inpatient E&M: 67478 Subs Hosp L2
[2024-02-25 11:30] LABS: Bedside Glucose 177 mg/dL (74-106)
[2024-02-25] MEDS: Ketorolac 15 MG/ML Vial IV ×2 (11:30→23:32)
[2024-02-25] MEDS: Insulin Lispro 100 UNIT/ML INSULN.PEN SC ×2 (11:37→17:10)
[2024-02-25] MEDS: Acetaminophen 500 MG Tablet 1000 MG PO ×2 (13:11→21:26)
[2024-02-25 16:18] LABS: Bedside Glucose 180 mg/dL (74-106)
[2024-02-25] MEDS: Pantoprazole Sodium 40 MG Tablet PO (21:26)
[2024-02-25] MEDS: Atorvastatin Calcium 10 MG Tablet PO (21:26)
[2024-02-25] MEDS: MELATONIN 3 MG TABLET PO (21:29)
[2024-02-26 02:33] VITALS: BP 143/74; PULSE 77; RESP 16; TEMP 36.6; O2SAT 98
[2024-02-26] MEDS: 0.9% Normal Saline (1000mL) 1,000 ML 125 ML IV ×2 (02:38→16:09)
[2024-02-26] MEDS: Insulin Lispro 100 UNIT/ML INSULN.PEN SC ×3 (06:41→16:09)
[2024-02-26] MEDS: Acetaminophen 500 MG Tablet 1000 MG PO ×3 (06:42→20:28)
[2024-02-26 06:43] VITALS: BP 151/78; PULSE 93; RESP 16; TEMP 36.6; O2SAT 98
[2024-02-26] MEDS: Carbidopa/Levodopa 25/100 Tablet PO ×3 (06:43→16:09)
[2024-02-26 06:48] LABS: Hematocrit 34.4 % (40-54); Mean Corpuscular Hgb 30.8 pg (27.0-32.0); Mean Corpuscular Volume 96.4 fL (80-94); Mean Platelet Vol. 10.1 fl (6.2-12.0); Platelet Count 237 K/mm3 (150-450); RBC Distribution Width CV 12.7 % (11.6-14.6); RBC Distribution Width SD 44.7 fl (35.1-43.9); Red Blood Count 3.57 M/mm3 (4.6-6.2); White Blood Count 9.8 K/mm3 (4.4-11.0)
[2024-02-26 07:06] LABS: Bedside Glucose 162 mg/dL (74-106)
[2024-02-26 07:15] LABS: Anion Gap 4 (5-15); BUN 14 mg/dL (7-18); BUN/Creat Ratio 17.3 RATIO (10-20); Calcium,Total 8.8 mg/dL (8.5-10.1); Chloride 105 mmol/L (98-107); Creatinine, Serum 0.81 mg/dL (0.70-1.30); EST Glomerular Filtration Rate 99 mL/min (>60); Est Glom Filt Rate - Afr Amer 119 mL/min (>60); Glucose 172 mg/dL (74-106); Potassium 3.9 mmol/L (3.5-5.1); Sodium Level 135 mmol/L (136-145)
[2024-02-26 08:00] VITALS: BP 131/72; PULSE 78; RESP 18; TEMP 37.2; O2SAT 97
--- NOTE | 2024-02-26 08:42 | PCM.PN.HOSP ---
Subjective Subjective Doing well postoperatively, no issues overnight Objective Data Objective Data Vital Signs: Vital Signs Temp Pulse Resp BP Pulse Ox O2 Del Method 97.9 F 93 16 151/78 H 98 Room Air 02/26/24 06:43 02/26/24 06:43 02/26/24 06:43 02/26/24 06:43 02/26/24 06:43 02/26/24 06:52 Oxygen Delivery Method Room Air Weight: 134 lb 7.994 oz Body Mass Index (BMI) 20.3 Intake & Output: Intake and Output for Last 24 Hours 02/25/24 02/26/24 02/27/24 03:59 03:59 03:59 Intake Total 563 / 563 4212.92 / 4212.92 635.42 / 635.42 Output Total 500 / 500 1450 / 1450 275 / 275 Balance 63 / 63 2762.92 / 2762.92 360.42 / 360.42 Lab / Micro Data 02/26/24 06:06 02/26/24 06:06 Labs: Laboratory Results - last 24 hr 02/25/24 11:07: POC Glucose 177 H 02/25/24 15:52: POC Glucose 180 H 02/26/24 06:06: WBC 9.8, RBC 3.57 L, Hgb 11.0 L, Hct 34.4 L, MCV 96.4 H, MCH 30.8, MCHC 32.0, RDW Std Deviation 44.7 H, RDW Coeff of Christie 12.7, Plt Count 237, MPV 10.1, Sodium 135 L, Potassium 3.9, Chloride 105, Carbon Dioxide 26.0, Anion Gap 4 L, BUN 14, Creatinine 0.81, Estim Creat Clear Calc 65.90, Est GFR (MDRD) Af Amer 119, Est GFR (MDRD) Non-Af 99, BUN/Creatinine Ratio 17.3, Glucose 172 H, Calcium 8.8 02/26/24 06:40: POC Glucose 162 H Micro: Microbiology 02/24/24 07:43 Urine, Catheterized Urine Culture - Preliminary Culture exhibits no growth. Radiography Diagnostic Testing: Radiology Impression Hip X-Ray 02/25/24 09:53 IMPRESSION: Status post left hip arthroplasty. Expected postoperative changes. Electronically Signed: Phoenix Montesinos DO at 10:07 EDT , Physical Exam Narrative General: Alert, Cooperative, No apparent distress HEENT: Atraumatic, PERRLA, EOMI, Normocephalic Oral: Moist Mucosa Neck: Supple, No JVD Lungs: Diminished, Normal air movement, No rhonchi, No wheeze, No rales Cardiovascular: Regular rate, Regular Rhythm, Normal S1, Normal S2, No murmurs Abdomen: Soft, Non Tender, Non-Distended, No Hepato-splenomegaly Extremities: No edema, Capillary Refill Less than 3 Seconds Skin: No rashes, No breakdown Musculoskeletal: Left hip is tender to palpation Neurological: No focal neurological deficits, Motor Exam 5/5 strength throughout, Sensory exam intact to light touch and pain Psych/Mental Status: Normal Affect, Appropriate Assessment & Plan Assessment/Plan (1) Closed left hip fracture: (2) Diabetes mellitus, type II: (3) Fall: (4) Parkinsons disease: PLAN: Plan # Fall with left hip fracture status post repair 02/25/2024 -CT demonstrated mild impacted nondisplaced fracture of left hip -Ortho consult, plan for surgery tomorrow -N.p.o. at midnight -Suspect somewhat poor p.o., will give gentle IV fluids -Pain control -Postop PT/OT -Chest x-ray queried rib fractures, CT pending, patient does not report any pain in this area, if he does have fractures and develops pain can consider lidocaine patches as well as other pain control -Case management and social work consults -Scheduled Tylenol 02/25/2024: Plan for operative repair today 02/26/2024: PT and OT for discharge planning as he will likely need to go to SNF. Family still does not want to do any type of PEG tube or tube feeding for his dysphagia #Hyponatremia?resolved # Mild chronic anemia -Appears to be at baseline -No evidence of blood loss -Continue monitor # Parkinson's disease -Continue home medications -PT/OT #Recent food impaction -Was hospitalized due to food impaction recently and had undergo EGD and extraction -There were aspiration concerns but family did not want PEG tube -C/s speech -Will keep n.p.o. pending speech eval 02/26/2024: Advance diet per speech therapy recommendations # Dementia -Will hold donepezil in the short-term -Can consider resuming on discharge #GERD -Continue PPI # Anxiety -Continue Lexapro #Type 2 diabetes mellitus -Glucose checks and sliding scale insulin -Holding home metformin #Chronic BPH -Based on history however does not appear to be on home medication -Given patient presently bedbound and will be having surgery tomorrow will have Rivera placed DVT: SCDs Charges/Coding Visit Charges Inpatient E&M: 18990 Subs Hosp L2
[2024-02-26] MEDS: Cholecalciferol (VIT D3) 25 MCG TABLET (1,000 UNITS) PO (10:13)
[2024-02-26] MEDS: Pantoprazole Sodium 40 MG Tablet PO ×2 (10:13→20:28)
[2024-02-26] MEDS: Escitalopram Oxalate 20 MG Tablet PO (10:13)
[2024-02-26 11:52] LABS: Bedside Glucose 181 mg/dL (74-106)
[2024-02-26] MEDS: Calcium Carbonate 500 MG Tablet PO ×2 (11:54→16:09)
--- NOTE | 2024-02-26 12:48 | PCM.PN.ORT ---
Subjective Subjective Patient seen and examined. He is sitting in a chair comfortable eating comfortable no concerns per the was present in the room. Patient states he is comfortable. He was able to get up some with physical therapy Objective Data Objective Data Vital Signs: Vital Signs Temp Pulse Resp BP Pulse Ox O2 Del Method 98.9 F 78 18 131/72 H 97 Room Air 02/26/24 08:00 02/26/24 08:00 02/26/24 08:00 02/26/24 08:00 02/26/24 08:00 02/26/24 08:00 Oxygen Delivery Method Room Air Weight: 134 lb 7.994 oz Body Mass Index (BMI) 20.3 Intake & Output: Intake and Output for Last 24 Hours 02/24/24 02/25/24 02/26/24 23:59 23:59 23:59 Intake Total 563 / 563 3219.17 / 3219.17 1703.92 / 1703.92 Output Total 200 / 500 1300 / 1300 925 / 925 Balance 363 / 63 1919.17 / 1919.17 778.92 / 778.92 Medical Nutrition Assessment Dietitian: Malnutrition Criteria Met Start: 02/26/24 10:59 Freq: Status: Active Protocol: Document 02/26/24 10:59 SLA (Rec: 02/26/24 10:59 SLA [id number]) Nutrition Malnutrition Evidence of Malnutrition Exists Yes Malnutrition (severe): Acute Illness/Injury Evidenced By Suboptimal Energy Intake ( Severe),Weight Loss (Severe) Clinical Problem Acute Disease or Injury Related Malnutrition Etiology related to dementia and difficulty chewing/swallowing Signs/Symptoms as evidenced by 4% unintended wt loss in past 2.5 wks and po intake meeting <50% of estimated nutritional needs x past month. Status Active Problem Recommendation Dietitian Recommendations/Changes Continue liberal regular diet - w/ diet consistency per FITNESS SERVICES MANAGER - d/t signs and symptoms of malnutrition Will order 4 oz ensure plus high protein 4x/day w/ medpass for increased nutrition if consumed. Lab / Micro Data 02/26/24 06:06 02/26/24 06:06 Labs: Laboratory Results - last 24 hr 02/25/24 15:52: POC Glucose 180 H 02/26/24 06:06: WBC 9.8, RBC 3.57 L, Hgb 11.0 L, Hct 34.4 L, MCV 96.4 H, MCH 30.8, MCHC 32.0, RDW Std Deviation 44.7 H, RDW Coeff of Christie 12.7, Plt Count 237, MPV 10.1, Sodium 135 L, Potassium 3.9, Chloride 105, Carbon Dioxide 26.0, Anion Gap 4 L, BUN 14, Creatinine 0.81, Estim Creat Clear Calc 65.90, Est GFR (MDRD) Af Amer 119, Est GFR (MDRD) Non-Af 99, BUN/Creatinine Ratio 17.3, Glucose 172 H, Calcium 8.8 02/26/24 06:40: POC Glucose 162 H 02/26/24 11:33: POC Glucose 181 H Micro: Microbiology 02/24/24 07:43 Urine, Catheterized Urine Culture - Final Culture exhibits no growth. Physical Exam Const no apparent distress; Negative for alert or oriented x3 General Appearance: cooperative Orientation / Consciousness: confused Extremity Extremity Narrative: Left hip dressing clean dry intact compartments soft neurovascular intact left lower extremity EHL tibialis anterior gastrocsoleus intact sensation light touch palpable pedal pulse Assessment & Plan Assessment/Plan (1) S/P hip hemiarthroplasty: PLAN: Plan Postop day #1 left hip hemiarthroplasty for fracture PT OT weightbearing as tolerated with hip precautions pain control Tylenol and oxycodone DVT prophylaxis SCDs thigh-high KARTHIK hose Eliquis 2.5 mg twice daily for 3 weeks Dressing to be removed left in place undisturbed for 7 days postop then should be removed and cleaned daily with antibacterial soap and warm water and a dry dressing changed daily at that point 2 weeks postop he can follow-up with me in the office at that point or if he is in a [facility] rehab or TCU I am happy to see him there.
[2024-02-26] MEDS: Ensure Plus High Protein 120 ML LIQUID PO (14:45)
[2024-02-26] MEDS: APIXABAN 2.5 MG TABLET (WCH) PO ×2 (14:45→20:27)
[2024-02-26 15:10] VITALS: BP 133/70; PULSE 91; RESP 18; TEMP 36.9; O2SAT 100
--- NOTE | 2024-02-26 15:52 | CHAPLAIN ---
Type of Pastoral Visit _x__ Initial Visit ___ Follow-up Visit ___ On-call Visit ___ General Patient Visit ___ Spiritual Assessment ___ Family Conference ___ Bereavement ___ Rapid Response ___ Code Blue ___ Other (describe below) Pastoral Care Referral From ___ Patient _x__ Family ___ Nurse ___ Physician ___ Reinforcing Iron Worker Helper ___ Park Maintenance Technician ___ Other (describe below) Sacrament/Intervention ___ Active listening ___ Anointing ___ Rastafari ___ Bereavement ___ Communion ___ Anny exploration ___ ___ Life review _x__ Prayer ___ Reconciliation ___ Sacrament of Sick _x__ Supportive presence ___ Wedding ___ Other (describe below) Pastoral Comments patient was previously seen in a recent admission; pt had a fall and has now had hip surgery; spouse is in the room; pt is awake and sitting in chair but very slow to respond to questions and keeps his answers to one or two words; spouse gives more information and while states that they are doing fine now, she also admits to feelings of being weary and worrisome; pt says that he just needs a prayer; prayer and presence given
[2024-02-26] MEDS: Senna/Docusate Sodium 1 Tablet 2 TABLET PO (16:09)
[2024-02-26 16:52] LABS: Bedside Glucose 250 mg/dL (74-106)
--- NOTE | 2024-02-26 18:00 | CASEMGMT ---
Social Work Collaboration with MOLD WORKER Carmen Oneill, who worked over the weekend, that patient is from [facility] [place]. Collaboration with Discharge players assistant who was able to verify with the SNF that patient is currently skilled level of care at [facility]. DP program assistant also reports is asking about IRU. Met with patient, Belem, and [id number]-nra Blanca (who is the 2nd [facility]), introducing to self, role and reason for visit. Answered 's questions, who appeared anxious and worried about patient who has dementia, Parkinson, and who has fallen at the SNF. reports has looked into the Memory Care unit at [facility], but waiting on a call back. also asks about [facility], as this was reportedly mentioned to the at some point during this stay. Educated to 3 hour of therapy requirement, and that will need to take into account whether patient could tolerate this level of care. Broached goals of care for patient, quality, and what patient's correction wishes would be. Educated to palliative care services, which could be of potential benefit to patient as another professional working wiht patient as symptoms progress with dementia and Parkinson diseases. Family expressing interest in adding this service line, wherever patient discharges to. Blanca expressed would like to have a family meeting, with primary [facility] Meg Barraza present. Spoke with Meg who can be to hospital at 1630, or even earlier if needed due to provider schedule. Discussed with Dr. Johnson this telegraphic typewriter operator's conversations with the family today. Provider able to meet at 1630 today. Spoke with Kami in admissions at [facility]. Patient declined for [facility]. Spoke with Jose M at [facility], where had been inquiring about Memory Care unit. Currently there is one bed, but offered to an internal resident. Family meeting with patient, , Meg, Fabio, and Meg's Aren, provider and social services aide. Goals of care discussed. 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 All in agreement with palliative care consult back at the . Updated about [facility] and [facility]. Agreeable to return to [facility] at discharge. Reviewed palliative care options, that it is the family's choice as to who SW calls; the family is aware of [facility] [place], so agreeable to go with this palliative program. During all interactions with patient and family today. Patient in chair, staring ahead, not able to participate in conversation; no meaningful verbal engagement by the patient. Updates sent to [facility] [place]. Anticipate discharge 02.27.24, with addition of palliative referral. Referral sent to [facility] Palliative program via fax; email to clinical director Kassi Medina as well. Asked Kassi to reach out to family to schedule a consult. Plan: Return to [facility] with palliative referral, skillled level of care for PT/OT/ST. SW to follow. -RYLAN [place]
[2024-02-26 20:19] VITALS: BP 150/81; PULSE 94; RESP 18; TEMP 36.4; O2SAT 100
[2024-02-26] MEDS: Atorvastatin Calcium 10 MG Tablet PO (20:28)
[2024-02-26] MEDS: MELATONIN 3 MG TABLET PO (20:36)
[2024-02-26 21:44] LABS: Bedside Glucose 223 mg/dL (74-106)
[2024-02-27 04:30] VITALS: BP 135/66; PULSE 87; RESP 18; TEMP 36.7; O2SAT 97
[2024-02-27] MEDS: Acetaminophen 500 MG Tablet 1000 MG PO (06:20)
[2024-02-27] MEDS: Insulin Lispro 100 UNIT/ML INSULN.PEN SC ×2 (06:21→11:20)
[2024-02-27] MEDS: Carbidopa/Levodopa 25/100 Tablet PO ×2 (06:21→11:20)
[2024-02-27 06:40] LABS: Bedside Glucose 165 mg/dL (74-106)
[2024-02-27 06:46] LABS: Hematocrit 29.6 % (40-54); Hemoglobin 9.6 g/dL (13.0-16.5); Mean Corp Hgb Conc 32.4 g/dL (32-36); Mean Corpuscular Hgb 30.7 pg (27.0-32.0); Mean Corpuscular Volume 94.6 fL (80-94); Mean Platelet Vol. 10.3 fl (6.2-12.0); Platelet Count 216 K/mm3 (150-450); RBC Distribution Width CV 12.8 % (11.6-14.6); Red Blood Count 3.13 M/mm3 (4.6-6.2); White Blood Count 10.2 K/mm3 (4.4-11.0)
--- NOTE | 2024-02-27 07:04 | TREXTCAR_ITS ---
Diet Diet Order/Speech Therapy: 02/25/24 11:43 Diet: Regular - General Food consistency:: Pureed Liquid Consistency:: Regular/Thin Is pt able to select menu?: Yes Diet Comments: single sips via straw; 1:1 supervision; meds crushed in Routine Orders/Code Status Routine Lab Work: CBC and BMP Code Status: DNRCC-A Wound(s) left hip: Wound Type: Surgical Incision Dressing Change: Dressing to be removed left in place undisturbed for 7 days postop then saritha Therapies Weight Bearing: Weight bearing as tolerated Physical Therapy: Eval and Treat Occupational Therapy: Eval and Treat Problem/Diagnosis (1) S/P hip hemiarthroplasty: Status: Acute Code(s): Z96.649 - Presence of unspecified artificial hip joint Plan # Fall with left hip fracture status post repair 02/25/2024 -CT demonstrated mild impacted nondisplaced fracture of left hip -Ortho consult, plan for surgery tomorrow -N.p.o. at midnight -Suspect somewhat poor p.o., will give gentle IV fluids -Pain control -Postop PT/OT -Chest x-ray queried rib fractures, CT pending, patient does not report any pain in this area, if he does have fractures and develops pain can consider lidocaine patches as well as other pain control -Case management and social work consults -Scheduled Tylenol 02/25/2024: Plan for operative repair today 02/26/2024: PT and OT for discharge planning as he will likely need to go to SNF. Family still does not want to do any type of PEG tube or tube feeding for his dysphagia #Hyponatremia?resolved # Mild chronic anemia -Appears to be at baseline -No evidence of blood loss -Continue monitor # Parkinson's disease -Continue home medications -PT/OT #Recent food impaction -Was hospitalized due to food impaction recently and had undergo EGD and extraction -There were aspiration concerns but family did not want PEG tube -C/s speech -Will keep n.p.o. pending speech eval 02/26/2024: Advance diet per speech therapy recommendations # Dementia -Will hold donepezil in the short-term -Can consider resuming on discharge #GERD -Continue PPI # Anxiety -Continue Lexapro #Type 2 diabetes mellitus -Glucose checks and sliding scale insulin -Holding home metformin #Chronic BPH -Based on history however does not appear to be on home medication -Given patient presently bedbound and will be having surgery tomorrow will have Rivera placed DVT: SCDs Allergies/Procedures Done in Hospital Allergies codeine Adverse Reaction (Verified 02/24/24 06:58) Nausea/Vom/Diarrhea Procedures: None Type of Care/Length of Stay Estimated LOS: Convalescent Care Less Than 30 days Type of Care Needed: Skilled Rehab Potential: Fair Prognosis: Fair Additional Orders/Day of Discharge Additional Orders: Palliative Care to follow at the facility - Referral has been made to [facility] Palliative program. Day of Discharge: 02/27/24 Dietary and Speech Recommendations Dietitian Recommendations/Changes: Continue liberal regular diet - w/ diet consistency per RETAIL PRESENTATION SPECIALIST - d/t signs and symptoms of malnutrition Will order 4 oz ensure plus high protein 4x/day w/ medpass for increased nutrition if consumed. Discharge Plan Admission Admit Date/Time: 02/24/24 09:44 Attending Provider: Milton Marley Primary Care Provider: Pawel Myers Consulting Providers: Ishan An; Maria De Jesus Mckeon Discharge Orders/Prescriptions Prescriptions: New sennosides-docusate sodium [Stool Softener-Stimulant Laxat] 8.6-50 mg Tablet 2 tab PO BID PRN PRN (Reason: Constipation) Qty: 0 0RF Eliquis 5 mg Tablet 2.5 mg PO BID 21 Days Qty: 0 0RF Continued donepezil [Aricept] 10 mg tablet 10 mg PO QHS carbidopa-levodopa 25MG-10 tablet extended release 1 tab PO TID atorvastatin 10 MG tablet 10 mg PO QHS cholecalciferol (vitamin D3) 1,000 UNIT tablet 5,000 unit PO DAILY acidophilus-pectin, citrus 1 TABLET tablet 1 tab PO DAILY 0RF multivitamin Tablet 1 tab PO DAILY magnesium hydroxide [Dulcolax (magnesium hydroxide)] 400 mg/5 mL suspension 30 ml PO DAILY PRN (Reason: constipation) Rx Instructions: if no BM in 3 days escitalopram oxalate 20 mg tablet 20 mg PO DAILY bisacodyl 10 mg suppository 10 mg [place] DAILY PRN (Reason: constipation) Rx Instructions: if no BM w/n 8 hours of MOM metformin 500 mg tablet 500 mg PO BID pantoprazole 40 mg tablet,delayed release (DR/EC) 40 mg PO BID carbidopa-levodopa 25-100 mg tablet 1 tab PO TID Referrals / Follow Up: Ishan An DO [Med Staff - Active Staff] - Within 2 Weeks Pawel Myers MD [Primary Care Provider] - Disposition Disposition (needs filled in before D/C Order can be placed): Long-Term Facility
[2024-02-27 07:40] VITALS: BP 115/51; PULSE 82; RESP 18; TEMP 36.4; O2SAT 94
[2024-02-27] MEDS: APIXABAN 2.5 MG TABLET (WCH) PO (07:44)
[2024-02-27] MEDS: Calcium Carbonate 500 MG Tablet PO ×2 (07:44→11:20)
[2024-02-27] MEDS: Pantoprazole Sodium 40 MG Tablet PO (07:44)
[2024-02-27] MEDS: Cholecalciferol (VIT D3) 25 MCG TABLET (1,000 UNITS) PO (07:45)
[2024-02-27] MEDS: Escitalopram Oxalate 20 MG Tablet PO (07:45)
[2024-02-27] MEDS: Ensure Plus High Protein 120 ML LIQUID PO (07:48)
[2024-02-27 08:01] VITALS: O2SAT 97
--- NOTE | 2024-02-27 08:58 | CASEMGMT ---
Discharge Planning Discharge orders, signed med list, and transport time sent to [facility] [place] via [facility]. Physicians will transport patient by cot at 12p. Nursing, SW, patients , and niece/POA updated. Lynda Quigley DC Planning Asst.
[2024-02-27 11:22] LABS: Bedside Glucose 186 mg/dL (74-106)
--- NOTE | 2024-02-27 16:32 | DS.PCM_ITS ---
Providers Date of Admission: 02/24/24 Primary Care Physician: Dr. Pawel Myers MD Consultations 02/24/24 10:55 Consult: Orthopedics Routine Consulting Provider: Ishan An Reason for Consult: L hip fx EMERGENT Consult: No MD Notified: Yes Date Notified: 02/24/24 Time Notified: 09:53 Method of Notification: ED Physician Initiated Reason For Visit: L HIP FX Diagnosis Discharge Diagnosis (1) S/P hip hemiarthroplasty: Status: Acute Code(s): Z96.649 - Presence of unspecified artificial hip joint Medications at Discharge Home Medications donepezil 10 mg tablet (Aricept) 10 mg PO QHS memory 06/26/18 atorvastatin 10 mg tablet 10 mg PO QHS cholesterol 08/26/19 carbidopa ER 25 mg-levodopa 100 mg tablet,extended release 1 tab PO TID parkinsons 08/26/19 cholecalciferol (vitamin D3) 25 mcg (1,000 unit) tablet 5,000 unit PO DAILY supplement 08/26/19 acidophilus 25 million cell-pectin, citrus 100 mg tablet 1 tab PO DAILY 09/11/19 multivitamin 1 tab PO DAILY 06/16/23 metformin 500 mg tablet 500 mg PO BID 01/18/24 bisacodyl 10 mg rectal suppository 10 mg VT DAILY PRN constipation 02/07/24 escitalopram oxalate 20 mg tablet 20 mg PO DAILY 02/07/24 magnesium hydroxide 400 mg/5 mL oral suspension (Dulcolax (magnesium hydroxide)) 30 ml PO DAILY PRN constipation 02/07/24 carbidopa 25 mg-levodopa 100 mg tablet 1 tab PO TID parkinsons 02/24/24 pantoprazole 40 mg tablet,delayed release 40 mg PO BID 02/24/24 apixaban 5 mg tablet (Eliquis) 2.5 mg (1/2 x 5 mg) PO BID 21 days #0 tabs 02/27/24 sennosides 8.6 mg-docusate sodium 50 mg tablet (Stool Softener-Stimulant Laxative) 2 tab PO BID PRN PRN Constipation #0 tabs 02/27/24 Hospital Course Operations - (hip hemiarthroplasty) Procedures None Summary of Care Provided Minutes Spent on Discharge: 33 Hospital Course: Per HPI: JODIE YOIS, is a 78 M with a history of BPH, Parkinson's, dementia, GERD, type 2 diabetes, who presented to [facility] ED 02/24/2024 from [facility] with unwitnessed fall. Patient found to have left hip pain and CT demonstrated left hip fracture, orthopedic surgery consulted and plan for surgery 02/24. Hospitalist contacted for admission. Patient seen with family member at bedside and does not remember what happened, patient has dementia and is poor historian. Other than left hip pain denies any other pain, denies changes in bowel or bladder. ED workup did not suggest any infection or UTI. Patient admitted to [facility]. Hospital Course: # Fall with left hip fracture status post repair 02/25/2024 -CT demonstrated mild impacted nondisplaced fracture of left hip -Ortho consult, plan for surgery tomorrow -N.p.o. at midnight -Suspect somewhat poor p.o., will give gentle IV fluids -Pain control -Postop PT/OT -Chest x-ray queried rib fractures, CT pending, patient does not report any pain in this area, if he does have fractures and develops pain can consider lidocaine patches as well as other pain control -Case management and social work consults -Scheduled Tylenol 02/25/2024: Plan for operative repair today 02/26/2024: PT and OT for discharge planning as he will likely need to go to SNF. Family still does not want to do any type of PEG tube or tube feeding for his dysphagia 02/27/2024: He was stable for discharge today and discussed with family the plan for discharge and expressed understanding of the risk benefits of [facility] and would like to go today. #Hyponatremia?resolved # Mild chronic anemia -Appears to be at baseline -No evidence of blood loss -Continue monitor # Parkinson's disease -Continue home medications -PT/OT #Recent food impaction -Was hospitalized due to food impaction recently and had undergo EGD and extraction -There were aspiration concerns but family did not want PEG tube -C/s speech -Will keep n.p.o. pending speech eval 02/26/2024: Advance diet per speech therapy recommendations # Dementia -Will hold donepezil in the short-term -Can consider resuming on discharge #GERD -Continue PPI # Anxiety -Continue Lexapro #Type 2 diabetes mellitus -Glucose checks and sliding scale insulin -Holding home metformin #Chronic BPH -Based on history however does not appear to be on home medication -Given patient presently bedbound and will be having surgery tomorrow will have Rivera placed DC prior to discharge Physical Exam Narrative General: Alert, Cooperative, No apparent distress HEENT: Atraumatic, PERRLA, EOMI, Normocephalic Oral: Moist Mucosa Neck: Supple, No JVD Lungs: Diminished, Normal air movement, No rhonchi, No wheeze, No rales Cardiovascular: Regular rate, Regular Rhythm, Normal S1, Normal S2, No murmurs Abdomen: Soft, Non Tender, Non-Distended, No Hepato-splenomegaly Extremities: No edema, Capillary Refill Less than 3 Seconds Skin: No rashes, No breakdown Musculoskeletal: Left hip is tender to palpation Neurological: No focal neurological deficits, Motor Exam 5/5 strength throughout, Sensory exam intact to light touch and pain Psych/Mental Status: Normal Affect, Appropriate Weight / BMI Weight Weight: 134 lb 7.994 oz Body Mass Index (BMI) 20.3 ABG / Lab / Microbiology Data 02/27/24 06:07 02/26/24 06:06 Laboratory: Laboratory Results - last 24 hr 02/26/24 16:08: POC Glucose 250 H 02/26/24 20:35: POC Glucose 223 H 02/27/24 06:07: WBC 10.2, RBC 3.13 L, Hgb 9.6 L, Hct 29.6 L, MCV 94.6 H, MCH 30.7, MCHC 32.4, RDW Std Deviation 44.0 H, RDW Coeff of Christie 12.8, Plt Count 216, MPV 10.3 02/27/24 06:20: POC Glucose 165 H 02/27/24 11:04: POC Glucose 186 H Microbiology: Microbiology 02/24/24 07:43 Urine, Catheterized Urine Culture - Final Culture exhibits no growth. Meaningful Use Info Meaningful Use Meaningful Use Diagnoses (Choose all that apply): None applicable Ischemic Stroke Statin Dosing Therapy Reference: STATIN DOSE THERAPY REFERENCE: * Patients > 75 years receive moderate or high dose statin therapy. * Patients 75 years or YOUNGER should receive HIGH intensity statin dose unless contraindicated. You will be required to document reason for non-treatment if statin daily dose does not meet guidelines. HIGH DOSE STATIN THERAPY DAILY Atorvastatin > than or = to 40 mg Rosuvastatin > than or = to 20 mg Amlodipine + Atorvastatin > than or = to 2.5/40 mg Ezetimibe + Simvastatin 10/80 mg Simvastatin 80mg Discharge Plan Admission Admit Date/Time: 02/24/24 09:44 Attending Provider: Milton Marley Primary Care Provider: Pawel Myers Consulting Providers: Ishan An; Maria De Jesus Mckeon Discharge Orders/Prescriptions Prescriptions: New sennosides-docusate sodium [Stool Softener-Stimulant Laxat] 8.6-50 mg Tablet 2 tab PO BID PRN PRN (Reason: Constipation) Qty: 0 0RF Eliquis 5 mg Tablet 2.5 mg PO BID 21 Days Qty: 0 0RF Continued donepezil [Aricept] 10 mg tablet 10 mg PO QHS carbidopa-levodopa 25MG-10 tablet extended release 1 tab PO TID atorvastatin 10 MG tablet 10 mg PO QHS cholecalciferol (vitamin D3) 1,000 UNIT tablet 5,000 unit PO DAILY acidophilus-pectin, citrus 1 TABLET tablet 1 tab PO DAILY 0RF multivitamin Tablet 1 tab PO DAILY magnesium hydroxide [Dulcolax (magnesium hydroxide)] 400 mg/5 mL suspension 30 ml PO DAILY PRN (Reason: constipation) Rx Instructions: if no BM in 3 days escitalopram oxalate 20 mg tablet 20 mg PO DAILY bisacodyl 10 mg suppository 10 mg VT DAILY PRN (Reason: constipation) Rx Instructions: if no BM w/n 8 hours of MOM metformin 500 mg tablet 500 mg PO BID pantoprazole 40 mg tablet,delayed release (DR/EC) 40 mg PO BID carbidopa-levodopa 25-100 mg tablet 1 tab PO TID Referrals / Follow Up: Ishan An DO [Med Staff - Active Staff] - Within 2 Weeks Pawel Myers MD [Primary Care Provider] - Disposition Disposition (needs filled in before D/C Order can be placed): Half-Way Facility Charges/Coding Visit Charges Inpatient E&M: 75949 Disch Hosp >30min
--- NOTE | 2024-04-05 15:55 | ST.MBS ---
Modified Barium Swallow Patient Information Study Date: 04/05/24 Study Time: 13:00 Direct Billable Minutes: 120 Total Minutes procedure & reportin Diagnosis: Parkinson's disease G20.B1; GERD K21.9 Referring Physician: Josr Angel Reason for Referral: Objectively assess swallow function, assess risk for aspiration, and determine recommendations for least restrictive diet textures and compensatory strategies to improve safety of swallow. Medical History: PMH: Anemia, Back pain, Shortness of breath on exertion, History of edema, Wears dentures, Wears glasses, Diabetes, High cholesterol, History of diverticulitis, Former smoker, Anxiety, Depression, History of dementia, Parkinsons disease, Callus of foot, Diarrhea, DM type 2, HTN, Dysphagia,? Acute respiratory failure, HLD, Esophageal obstruction (See EMR and face sheet for full PMH). Patient is known to this ST department due to history of dysphagia with recent MBSS 02/09/2024. At the time, the patient was hospitalized since 02/07/24 for an aspiration event with hypoxemia after eating pork chops at lunch and choking. In the ED he was hypoxemic and required emergent intubation. After intubation, the patient was not noted to have any foreign bodies in his trachea. Therefore, gastroenterology was consulted. The patient subsequently underwent EGD which revealed food in the upper third of the esophagus, which was successfully removed. A severe Schatzki ring was noted which was successfully dilated and biopsied. 02/08/24 patient was successfully extubated. ST was consulted and recommended NPO on February 07. Speech therapy was consulted for evaluation of swallow function. He was recommended NPO with plans for instrumental swallow assessment prior to diet advancement. MBSS 02/09/2024 revealed severe oropharyngeal dysphagia and silent aspiration of thin, nectar thick, and honey thick liquids. He was recommended NPO with consideration for alternative means of nutrition. He was deemed not appropriate for PEG and placed on puree textures / thin liquids with aspiration precautions and total feeding assistance. He was discharged from the hospital on 02/10/2024, but returned 02/24/2024 due to fall with L hip fracture and underwent hip hemiarthroplasty. He was evaluated at bedside and recommended for puree textures / thin liquids with aspiration precautions and total feeding assistance. He was discharged to SNF. Per patient?s , [place], and [id number], Nieves (POA), the patient has been tolerating puree textures / thin liquids and participating in ST services at [facility] for oropharyngeal strengthening. He recently trialed a soft, oatmeal cookie and appeared to tolerate it well. He was recommended for MBSS to consider diet advancement. Current Diet Ordered: Puree textures / Thin liquids Dentition: Upper Dentures and Lower Dentures Mental Status: Impaired Respiratory Status: Oxygenating on Room Air Penetration-Aspiration Scale Penetration-Aspiration Scale: OBJECTIVE ASSESSMENT OF SWALLOW FUNCTION (QUANTITATIVE ? PER TRIAL): PENETRATION / ASPIRATION SCALE (BUI): 1 = does not enter airway 2 = enters airway/above vocal folds/ejected 3 = enters airway/above vocal folds/not ejected 4 = enters airway/contacts vocal folds/ejected 5 = enters airway/contacts vocal folds/not ejected 6 = enters airway/below vocal folds/ejected 7 = enters airway/below vocal folds/not ejected despite effort 8 = enters airway/below vocal folds/no effort VIDEOFLOROSCOPIC SCALE SCORE (BUI): Grade I = aspiration of material that has penetrated into the laryngeal vestibule, intact cough reflex Grade II = aspiration < 10 % of the bolus, intact cough reflex Grade III = aspiration of < 10 % of the bolus, reduced cough reflex or aspiration of > 10 % of the bolus, intact cough reflex Grade IV = aspiration of > 10 % of the bolus, reduced cough reflex Penetration-Aspiration Scale Score Thin Liquid via teaspoon: Result: 2= enter airway/above vocal folds/ejected Thin Liquid via teaspoon Trial 2: Result: 2= enter airway/above vocal folds/ejected Thin Liquid via large single sip: cup: Result: 8= enters airway/below vocal folds/no effort [place] Thick Liquid via small single sip: cup: Result: 2= enter airway/above vocal folds/ejected [place] Thick Liquid via small single sip: cup Trial 2: Result: 2= enter airway/above vocal folds/ejected Comment: Esophageal screen - trace retention of liquids in UES. Pudding via teaspoon: Result: 1= does not enter airway Comment: Esophageal screen - trace retention/coating of barium pudding in upper-mid esophagus. 08/31 Macrina Doone cookie: Result: 1= does not enter airway Comment: Esophageal screen - small crumb of cookie in the UES likely due to presence of small CP bar. Thin Liquid via single sip: straw: Result: 2= enter airway/above vocal folds/ejected Thin Liquids via single (large) sip: straw: Result: 5= enters airways/contacts vocal folds/not ejected (trace) Thin Liquid via small single sip: cup: Result: 2= enter airway/above vocal folds/ejected Comment: TROUBLE LOCATOR TEST DESK cued chin tuck, which the patient did not execute. Thin Liquid via small single sip: cup Effortful swallow: Result: 3= enters airways/above vocal folds/not ejected Oral Phase Labial Seal: No Labial Escape Tongue Control During Bolus Hold: Posterior escape of less than half of bolus Bolus Preparation/Mastication: Disorganized chewing/mashing with solid pieces of bolus unchewed (small pieces of cookie un-chewed) Bolus Transport/Lingual Motion: Repetitive/disorganized tongue motion Oral Residue: Residue collection on oral structures Pharyngeal Phase Initiation of Pharyngeal Swallow: Bolus head at posterior laryngeal surgace of epiglottis Soft Palate Elevation: Trace column of contrast/air between soft palate and pharyngeal wall Laryngeal Elevation: Partial superior movement thyroid cart/partial apprx aryt-epig petiole Anterior Hyoid Excursion: Partial anterior movement Epiglottic Movement: Partial inversion (inconsistent) Laryngeal Vestibule Closure at Height of Swallow: Incomplete; narrow column of air/contrast in laryngeal vestibule Pharyngeal Stripping Wave: Present - diminished Pharyngoesophageal Segment Opening: Parital distension and partial duration; parital obstruction of flow (trace retention of barium in UES) Tongue Base Retraction: Narrow column of contrast between tongue base & post. pharyngeal wall Pharyngeal Residue: Collection of residue within or on pharyngeal structures Esophageal Phase Esophageal Clearance: Esophageal retention w/ retrograde flow through pharyngoesophageal seg Diagnosis/Impression Diagnosis: Moderate oropharyngeal dysphagia R13.12 Impression: The oral phase is primarily marked by... -Decreased bolus control with <1/2 of the bolus spilling posteriorly to the posterior surface of the epiglottis prior to swallow onset. -Repetitive tongue motion for A-P transport -Mild oral residue after the swallow, which mostly cleared with independent initiation of a second swallow as needed. -Decreased mastication with small pieces of 1/4 Macrina Doone appearing un-chewed. Small piece of un-chewed cookie appeared in the pharynx after the first swallow and required a liquid wash to clear. TROUBLE LOCATOR TEST DESK discussed with family the recommendation for soft and bite size solids that can be easily masticated by the patient to decrease risk for choking. The pharyngeal phase is primarily marked by... -Decreased airway closure during the swallow due to decreased anterior hyoid excursion, inconsistent epiglottic inversion, and decreased laryngeal elevation. -Decreased tongue base retraction, UES opening/duration, and pharyngeal stripping wave with resulting mild-moderate pharyngeal residues after the swallow. -SILENT aspiration of large sip of thin liquids via cup. Trace laryngeal penetration of large sip of thin liquids via straw to the vocal folds, which did not fully eject after the swallow. See PAS scores above for full details re: aspiration and laryngeal penetration during the study. Decreased bolus size was most effective in decreasing risk for aspiration. Of note, the patient has a small CP bar at the level of C5. Patient had trace retention of liquid barium in the UES with retrograde flow to the pyriform sinuses. The patient also had retention of a small crumb of cookie in the UES likely due to presence of small CP bar. The crumb cleared with liquid washes. Recommendations Diet: Mechanical Soft Textures (Soft and Bite Size Textures - IDDSI Level 6) and Thin Liquids Compensatory Strategies: Small Bites, Small Sips, Slow Rate, Alternate bites/solids and sips/liquids, Sitting upright and Remain sitting upright for 30 minutes after PO intake Supervision: 1:1 Close Supervision Recommend Repeat Modified Barium Swallow: TBD Need for Skilled Speech Therapy Services: Yes Comment: -If increased sensation of retention, reflux, regurgitation, or s/s of aspiration with soft and bite size textures, would recommend downgrade to purees. This TROUBLE LOCATOR TEST DESK would NOT recommend diet advancement past soft and bite size textures due to patient history of a choking episode while consuming pork chops and esophageal obstruction requiring emergent intubation in January of 2024. -Please consider the patient for use of bolus control cups/straws to better control rate of liquid consumption and decrease aspiration risk. -Will recommend continued ST services for ongoing assessment of diet tolerance, training patient/family/staff in strategies to decrease risk for aspiration, and continued implementation of oropharyngeal exercise program (consider lingual resistance, effortful, Marlene, CTAR, yawn stretch). -If worsening respiratory status or poor diet tolerance of thin liquids, consider downgrade to nectar/mildly thick liquids if deemed appropriate by treating TROUBLE LOCATOR TEST DESK. 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 Described result of evaluation., 4. Family/caregivers understand evaluation & agree w/ goals & tx plan. and 7. Pt requires further education on strategies & risks. Status Active ST Patient: Active Contact Information [facility] Speech Therapy:: Ana Ornelas M.A. CCC-TROUBLE LOCATOR TEST DESK? Speech-Language Pathologist?? [facility] [address] [place] [address]? [email or web address]?? [phone]
== END 2024-02-27 14:29 | disposition skilled nursing facility (03) | DRG 521 ==
LOC: ED 09:08 → MS3 10:02
PROVIDERS: Orthopaedic Surgery; Admitting Provider Internal Medicine; Emergency Provider Emergency Medicine; PCP Family Medicine; Visit Provider Family Medicine
PROC: 0SRS0JA Replacement of Left Hip Joint, Femoral Surface with Synthetic Substitute, Uncemented, Open Approach (ICD-10-PCS; CPT 27125; principal; 2024-02-25 08:00)
DX: S72.002A Fracture of unspecified part of neck of left femur, initial encounter for closed fracture (principal); E43 Unspecified severe protein-calorie malnutrition; E87.1 Hypo-osmolality and hyponatremia; D64.9 Anemia, unspecified; F02.80 Dementia in other diseases classified elsewhere, unspecified severity, without behavioral disturbance, psychotic disturbance, mood disturbance, and anxiety; E11.9 Type 2 diabetes mellitus without complications; E78.00 Pure hypercholesterolemia, unspecified; G20.C Parkinsonism, unspecified; I10 Essential (primary) hypertension; K21.9 Gastro-esophageal reflux disease without esophagitis; F41.9 Anxiety disorder, unspecified; W19.XXXA Unspecified fall, initial encounter; Z79.84 Long term (current) use of oral hypoglycemic drugs; Z87.891 Personal history of nicotine dependence; R13.10 Dysphagia, unspecified; Z96.649 Presence of unspecified artificial hip joint; Z66 Do not resuscitate; N40.0 Benign prostatic hyperplasia without lower urinary tract symptoms; Z68.20 Body mass index [BMI] 20.0-20.9, adult
CPT/HCPCS: 36415; 70450; 71045; 71250; 72125; 73502; 73700; 80048; 80053; 81001; 82962; 85025; 85027; 85610; 85730; 86850; 86900; 86901; 87086; 88305; 88311; 92526; 92610; 93005; 97162; 97166; 99285; C1776; J7030; A4216; J2405

== ENCOUNTER → 2024-04-05 | Outpatient (CLI) | payer MEDICARE, OTHER, MEDICAID, SELFPAY | END | disposition home or self-care (01) | PROVIDERS: PCP Family Medicine; Referring Provider Family Medicine; Visit Provider Family Medicine | DX: R13.10 Dysphagia, unspecified (principal) | CPT/HCPCS: 74230 ==